=== PATIENT | male | born 1960 | race Hispanic/Latino ===

== ENCOUNTER 2021-01-05 07:38 | Day surgery (SDC) | payer OTHER ==
[2021-01-05] MEDS ORDERED: NA CHLORIDE 0.9% IV ONE (08:00)
[2021-01-05] MEDS ORDERED: RITUXIMAB ABBS IV ONE (08:00)
[2021-01-05 08:11] VITALS: BMI 29.8
[2021-01-05 12:38] VITALS: TEMP 98.1
[2021-01-05 13:27] VITALS: BP 160/94; O2SAT 97
== END 2021-01-05 13:05 | disposition home or self-care (01) ==
LOC: DS 07:38
PROVIDERS: ATTEND Internal Medicine
DX: L10.9 Pemphigus, unspecified (principal)
CPT/HCPCS: 96365; 96366; J7040; Q5115

== ENCOUNTER 2021-01-19 07:27 | Day surgery (SDC) | payer OTHER ==
[2021-01-19] MEDS ORDERED: NA CHLORIDE 0.9% 250 ML ONE (08:57)
[2021-01-19] MEDS ORDERED: NA CHLORIDE 0.9% IV ONE (09:00)
[2021-01-19] MEDS ORDERED: RITUXIMAB ABBS IV ONE (09:00)
[2021-01-19 10:14] VITALS: BMI 29.8
[2021-01-19 13:42] VITALS: BP 127/82; TEMP 97.2; O2SAT 97
== END 2021-01-19 16:00 | disposition home or self-care (01) ==
LOC: DS 07:27
PROVIDERS: ATTEND Internal Medicine
DX: L10.9 Pemphigus, unspecified (principal)
CPT/HCPCS: 96365; 96366; J7050; J7040; Q5115

== ENCOUNTER 2022-01-04 09:40 | Emergency (ER) | payer OTHER ==
--- OUTSIDE RECORDS SUMMARY | 2022-01-04 09:53 | XMS REPORT | Continuity of Care Document ---
:1960 Author Organization [facility] t Address [address] [place] [address] Dr. [address]. [address] [place] [address] Care Team Providers Name Role Phone Renzo Martinez Primary Care Physician [phone] Jose Guadalupe Kilgore Attending Clinician Unavailable Problems This patient has no known problems. Allergies, Adverse Reactions, Alerts Allergy Allergy Status Severity Reaction(s) Onset Inactive Treating Comm ents Source Name Type Date Date Clinician Mesna - Propensi Active Intraven ty to 6-27 ous adverse 00:00: reaction 00 to drug Medications Ordered Filled Start Stop Current Ordering Indication Dosage Frequency Signature Comments Components Source Medication Medication Date Date Medication? Clinician (SIG) Name Name TAKE 2021-03 No TABLET BY 0-03 MOUTH ONCE 00:00: DAILY 00 Dose 2021-03 No Unknown 0-03 00:00: 00 MUPIROCIN 2021-03 No 2% OIN 0-03 00:00: 00 ATENOLOL 2021-03 No 50MG TAB 0-03 00:00: 00 Dose 2021-03 No Unknown 0-03 00:00: 00 SERTRALINE 0 No HCL 50MG 9-29 TAB 00:00: 00 ZOVIRAX 5% 0 No CRE 9-21 00:00: 00 ATORVASTATI 2021-0 No 10 N CALCIUM 9-21 10MG TAB 00:00: 00 TAKE No TABLET 9-21 TWICE DAILY 00:00: WITH FOOD. 00 APPLY 2021-0 No SPARINGLY 9-21 TO AFFECTED 00:00: AREA(S) 00 TWICE DAILY ZOVIRAX 5% 2021-0 No CRE 9-21 00:00: 00 ATORVASTATI 2021-0 No 10 N CALCIUM 9-21 10MG TAB 00:00: 00 TAKE 1 2022-0 No TABLET 9-21 TWICE DAILY 00:00: WITH FOOD. 00 APPLY 2022-0 No SPARINGLY 9-21 TO AFFECTED 00:00: AREA(S) 00 TWICE DAILY ZOVIRAX 5% 2-0 No CRE 9-21 00:00: 00 ATORVASTATI 2022-0 No 10 N CALCIUM 9-21 10MG TAB 00:00: 00 TAKE 1 2-0 No TABLET 9-21 TWICE DAILY 00:00: WITH FOOD. 00 APPLY 2022-0 No SPARINGLY 9-21 TO AFFECTED 00:00: AREA(S) 00 TWICE DAILY CLOBETASOL 2-0 No PROPIONATE 8-29 0.05% CRE 00:00: 00 CLOBETASOL 2022-0 No PROPIONATE 8-29 0.05% CRE 00:00: 00 CLOBETASOL 2022-0 No PROPIONATE 8-29 0.05% CRE 00:00: 00 Dose 2022-0 No Unknown 8-22 00:00: 00 Dose 2022-0 No Unknown 8-22 00:00: 00 Dose 2022-0 No Unknown 8-22 00:00: 00 TAKE ONE 2022-0 No 50 TABLET 8-18 TWICE A DAY 00:00: 00 TAKE ONE 2022-0 No 50 TABLET 8-18 TWICE A DAY 00:00: 00 TAKE ONE 2022-0 No 50 TABLET 8-18 TWICE A DAY 00:00: 00 Dose 2022-0 No Unknown 8-18 00:00: 00 TAKE 1 2022-0 No 10 TABLET 8-16 DAILY. 00:00: 00 &lt 2022-0 No 8-16 00:00: 00 TAKE 1 2022-0 No 10 TABLET 8-16 DAILY. 00:00: 00 &lt 2022-0 No 8-16 00:00: 00 TAKE 1 2022-0 No 10 TABLET 8-16 DAILY. 00:00: 00 &lt 2022-0 No 8-16 00:00: 00 TAKE 1 2022-0 No 10 TABLET 8-16 DAILY. 00:00: 00 &lt 2022-0 No 8-16 00:00: 00 Dose 2022-0 No 50 Unknown 8-08 00:00: 00 &lt 2022-0 No 100 8-08 00:00: 00 &lt 2022-0 No 400 8-08 00:00: 00 Dose 2022-0 No 50 Unknown - 00:00: 00 &lt 2022-0 No 100 8- 00:00: 00 &lt 2022-0 No 400 8- 00:00: 00 Dose 2022-0 No 50 Unknown 10-22 00:00: 00 &lt 2022-0 No 100 8- 00:00: 00 &lt 2022-0 No 400 8- 00:00: 00 Dose 2022-0 No 50 Unknown 10-22 00:00: 00 &lt 2022-0 No 100 8- 00:00: 00 &lt 2022-0 No 400 8- 00:00: 00 &lt 2022-0 No 800 8- 00:00: 00 &lt 2022-0 No 8- 00:00: 00 &lt 2022-0 No 25 8- 00:00: 00 &lt 2022-0 No 10 8- 00:00: 00 &lt 2022-0 No 8-03 00:00: 00 &lt 2022-0 No 800 8- 00:00: 00 &lt 2022-0 No 8-03 00:00: 00 &lt 2022-0 No 25 8- 00:00: 00 &lt 2022-0 No 10 8- 00:00: 00 &lt 2022-0 No 8-03 00:00: 00 &lt 2022-0 No 800 8- 00:00: 00 &lt 2022-0 No 8-03 00:00: 00 &lt 2022-0 No 25 8- 00:00: 00 &lt 2022-0 No 10 8- 00:00: 00 &lt 2022-0 No 8-03 00:00: 00 &lt 2022-0 No 800 8- 00:00: 00 &lt 2022-0 No 8-03 00:00: 00 &lt 2022-0 No 25 8-03 00:00: 00 &lt 2022-0 No 10 8-03 00:00: 00 &lt 2022-0 No 8- 00:00: 00 Dose 2022-0 No 50 Unknown 8- 00:00: 00 &lt 2022-0 No 75 8- 00:00: 00 &lt 2022-0 No 8- 00:00: 00 &lt 2022-0 No 50 8- 00:00: 00 Dose 2022-0 No 4 Unknown 10-16 00:00: 00 TAKE 1 2-0 No 250 CAPSULE 8 TWICE 00:00: DAILY. 00 &lt 2022-0 No 8- 00:00: 00 Dose 2022-0 No 50 Unknown 8 00:00: 00 &lt 2022-0 No 75 8- 00:00: 00 &lt 2022-0 No 8- 00:00: 00 &lt 2022-0 No 50 8- 00:00: 00 Dose 2022-0 No 4 Unknown 10-16 00:00: 00 TAKE 1 2021-0 No 250 CAPSULE 10-16 TWICE 00:00: DAILY. 00 &lt 2022-0 No 8- 00:00: 00 Dose 2022-0 No 50 Unknown 10-16 00:00: 00 &lt 2022-0 No 75 8- 00:00: 00 &lt 2022-0 No 8- 00:00: 00 &lt 2022-0 No 50 8- 00:00: 00 Dose 2022-0 No 4 Unknown 10-16 00:00: 00 TAKE 1 2021-0 No 250 CAPSULE 10-16 TWICE 00:00: DAILY. 00 &lt 2022-0 No 8- 00:00: 00 Dose 2022-0 No 50 Unknown 10-16 00:00: 00 &lt 2022-0 No 75 8- 00:00: 00 &lt 2022-0 No 8- 00:00: 00 &lt 2022-0 No 50 8- 00:00: 00 Dose 2022-0 No 4 Unknown 10-16 00:00: 00 TAKE 1 2-0 No 250 CAPSULE 10-16 TWICE 00:00: DAILY. 00 &lt 2022-0 No 8- 00:00: 00 &lt 2022-0 No 800 8 00:00: 00 Dose 2022-0 No 10 Unknown 10-15 00:00: 00 &lt 2022-0 No 50 8- 00:00: 00 &lt 2022-0 No 8- 00:00: 00 Dose 2022-0 No Unknown 10-15 00:00: 00 TAKE 1 2022-0 No 250 CAPSULE 8- TWICE 00:00: DAILY. 00 &lt 2022-0 No 50 8- 00:00: 00 &lt 2022-0 No 4 8- 00:00: 00 APPLY 2022-0 No SPARINGLY 8-01 TO AFFECTED 00:00: AREAS TWICE 00 A DAY Dose 2022-0 No Unknown 8- 00:00: 00 Dose 2022-0 No Unknown 8- 00:00: 00 &lt 2022-0 No 10 8- 00:00: 00 &lt 2022-0 No 800 8- 00:00: 00 Dose 2022-0 No 10 Unknown 8- 00:00: 00 &lt 2022-0 No 50 8- 00:00: 00 &lt 2022-0 No 8- 00:00: 00 Dose 2022-0 No Unknown 8- 00:00: 00 TAKE 1 2022-0 No 250 CAPSULE 8- TWICE 00:00: DAILY. 00 &lt 2022-0 No 50 8- 00:00: 00 &lt 2022-0 No 4 8- 00:00: 00 APPLY 2022-0 No SPARINGLY 8- TO AFFECTED 00:00: AREAS TWICE 00 A DAY Dose 2022-0 No Unknown 8- 00:00: 00 Dose 2022-0 No Unknown 8- 00:00: 00 &lt 2022-0 No 10 8- 00:00: 00 &lt 2022-0 No 800 8- 00:00: 00 Dose 2022-0 No 10 Unknown 8- 00:00: 00 &lt 2022-0 No 50 8- 00:00: 00 &lt 2022-0 No 8- 00:00: 00 Dose 2022-0 No Unknown 8- 00:00: 00 TAKE 1 2022-0 No 250 CAPSULE 8- TWICE 00:00: DAILY. 00 &lt 2022-0 No 50 8- 00:00: 00 &lt 2022-0 No 4 8- 00:00: 00 APPLY 2022-0 No SPARINGLY 8- TO AFFECTED 00:00: AREAS TWICE 00 A DAY Dose 2022-0 No Unknown 8- 00:00: 00 Dose 2022-0 No Unknown 8- 00:00: 00 &lt 2022-0 No 10 8- 00:00: 00 &lt 2022-0 No 800 8- 00:00: 00 Dose 2022-0 No 10 Unknown 8-01 00:00: 00 &lt 2022-0 No 50 8-01 00:00: 00 &lt 2022-0 No 8-01 00:00: 00 Dose 2022-0 No Unknown 8- 00:00: 00 TAKE 1 2022-0 No 250 CAPSULE 8- TWICE 00:00: DAILY. 00 &lt 2022-0 No 50 8- 00:00: 00 &lt 2022-0 No 4 8- 00:00: 00 APPLY 2022-0 No SPARINGLY 8-01 TO AFFECTED 00:00: AREAS TWICE 00 A DAY Dose 2022-0 No Unknown 8- 00:00: 00 Dose 2022-0 No Unknown 8- 00:00: 00 &lt 2022-0 No 10 8- 00:00: 00 &lt 2022-0 No 800 8- 00:00: 00 Dose 2022-0 No 10 Unknown 8- 00:00: 00 &lt 2022-0 No 50 8- 00:00: 00 &lt 2022-0 No 8- 00:00: 00 Dose 2022-0 No Unknown 8- 00:00: 00 TAKE 1 2-0 No 250 CAPSULE 8- TWICE 00:00: DAILY. 00 &lt 2022-0 No 50 8- 00:00: 00 &lt 2022-0 No 4 8- 00:00: 00 APPLY 2022-0 No SPARINGLY 8- TO AFFECTED 00:00: AREAS TWICE 00 A DAY Dose 2022-0 No Unknown 8- 00:00: 00 Dose 2022-0 No Unknown 8- 00:00: 00 &lt 2022-0 No 10 8- 00:00: 00 TAKE 1 2-0 No 250 CAPSULE 7-22 TWICE 00:00: DAILY. 00 &lt 2022-0 No 4 7- 00:00: 00 TAKE 1 2022-0 No 250 CAPSULE 7-22 TWICE 00:00: DAILY. 00 &lt 2022-0 No 4 7- 00:00: 00 TAKE 1 2-0 No 250 CAPSULE 7-22 TWICE 00:00: DAILY. 00 &lt 2022-0 No 4 7-22 00:00: 00 TAKE 1 2022-0 No 250 CAPSULE 7-22 TWICE 00:00: DAILY. 00 &lt 2022-0 No 4 7-22 00:00: 00 TAKE 1 2022-0 No 250 CAPSULE 7-22 TWICE 00:00: DAILY. 00 &lt 2022-0 No 4 7-22 00:00: 00 &lt 2022-0 No 100 7-20 00:00: 00 &lt 2022-0 No 7-20 00:00: 00 &lt 2022-0 No 50 7-20 00:00: 00 Dose 2022-0 No 50 Unknown 7-20 00:00: 00 &lt 2022-0 No 7-20 00:00: 00 &lt 2022-0 No 7-20 00:00: 00 &lt 2022-0 No 7-20 00:00: 00 &lt 2022-0 No 500 7-20 00:00: 00 Dose 2022-0 No 10 Unknown 7-20 00:00: 00 &lt 2022-0 No 100 7-20 00:00: 00 &lt 2022-0 No 7-20 00:00: 00 &lt 2022-0 No 50 7-20 00:00: 00 Dose 2022-0 No 50 Unknown 7-20 00:00: 00 &lt 2022-0 No 7-20 00:00: 00 &lt 2022-0 No 7-20 00:00: 00 &lt 2022-0 No 7-20 00:00: 00 &lt 2022-0 No 500 7-20 00:00: 00 Dose 2022-0 No 10 Unknown 7-20 00:00: 00 &lt 2022-0 No 100 7-20 00:00: 00 &lt 2022-0 No 7-20 00:00: 00 &lt 2022-0 No 50 7-20 00:00: 00 Dose 2022-0 No 50 Unknown 7-20 00:00: 00 &lt 2022-0 No 7-20 00:00: 00 &lt 2022-0 No 7-20 00:00: 00 &lt 2022-0 No 7-20 00:00: 00 &lt 2022-0 No 500 7-20 00:00: 00 Dose 2022-0 No 10 Unknown 7-20 00:00: 00 &lt 2022-0 No 100 7-20 00:00: 00 &lt 2022-0 No 7-20 00:00: 00 &lt 2022-0 No 50 7-20 00:00: 00 Dose 2022-0 No 50 Unknown 7-20 00:00: 00 &lt 2022-0 No 7-20 00:00: 00 &lt 2022-0 No 7-20 00:00: 00 &lt 2022-0 No 7-20 00:00: 00 &lt 2022-0 No 500 7-20 00:00: 00 Dose 2022-0 No 10 Unknown 7-20 00:00: 00 &lt 2022-0 No 100 7-20 00:00: 00 &lt 2022-0 No 7-20 00:00: 00 &lt 2022-0 No 50 7-20 00:00: 00 Dose 2022-0 No 50 Unknown 7-20 00:00: 00 &lt 2022-0 No 7-20 00:00: 00 &lt 2022-0 No 7-20 00:00: 00 &lt 2022-0 No 7-20 00:00: 00 &lt 2022-0 No 500 7-20 00:00: 00 Dose 2022-0 No 10 Unknown 7-20 00:00: 00 &lt 2022-0 No 100 7-20 00:00: 00 &lt 2022-0 No 7-20 00:00: 00 &lt 2022-0 No 50 7-20 00:00: 00 Dose 2022-0 No 50 Unknown 7-20 00:00: 00 &lt 2022-0 No 7-20 00:00: 00 &lt 2022-0 No 7-20 00:00: 00 &lt 2022-0 No 7-20 00:00: 00 &lt 2022-0 No 500 7-20 00:00: 00 Dose 2022-0 No 10 Unknown 7-20 00:00: 00 TAKE 1 2022-0 No 4 TABLET 7-15 TWICE 00:00: DAILY. 00 Dose 2022-0 No Unknown 7-15 00:00: 00 TAKE 1 2022-0 No 4 TABLET 7-15 TWICE 00:00: DAILY. 00 Dose 2022-0 No Unknown 7-15 00:00: 00 TAKE 1 2022-0 No 4 TABLET 7-15 TWICE 00:00: DAILY. 00 Dose 2022-0 No Unknown 7-15 00:00: 00 TAKE 1 2022-0 No 4 TABLET 7-15 TWICE 00:00: DAILY. 00 Dose 2022-0 No Unknown 7-15 00:00: 00 TAKE 1 2022-0 No 4 TABLET 7-15 TWICE 00:00: DAILY. 00 Dose 2022-0 No Unknown 7-15 00:00: 00 TAKE 1 2022-0 No 4 TABLET 7-15 TWICE 00:00: DAILY. 00 Dose 2022-0 No Unknown 7-15 00:00: 00 &lt 2022-0 No 50 7-07 00:00: 00 &lt 2022-0 No 50 7-07 00:00: 00 &lt 2022-0 No 50 7-07 00:00: 00 &lt 2022-0 No 50 7-07 00:00: 00 &lt 2022-0 No 50 7-07 00:00: 00 &lt 2022-0 No 50 7-07 00:00: 00 &lt 2022-0 No 50 7-07 00:00: 00 &lt 2022-0 No 7-06 00:00: 00 &lt 2022-0 No 7-06 00:00: 00 &lt 2022-0 No 10 7-06 00:00: 00 &lt 2022-0 No 7-06 00:00: 00 &lt 2022-0 No 50 7-06 00:00: 00 TAKE ONE 2022-0 No 50 TABLET 7-06 TWICE A DAY 00:00: 00 Dose 2022-0 No Unknown 7-06 00:00: 00 TAKE 2 2022-0 No 2 TABLETS 7-06 INITIALLY, 00:00: FOLLOWED BY 00 1 TABLET AFTER EACH LOOSE BOWEL MOVEMENT. DO NOT EXCEED 8 TABLETS/DAY . &lt 2022-0 No 7-06 00:00: 00 &lt 2022-0 No 7-06 00:00: 00 &lt 2022-0 No 10 7-06 00:00: 00 &lt 2022-0 No 7-06 00:00: 00 &lt 2022-0 No 50 7-06 00:00: 00 TAKE ONE 2022-0 No 50 TABLET 7-06 TWICE A DAY 00:00: 00 Dose 2022-0 No Unknown 7-06 00:00: 00 TAKE 2 2022-0 No 2 TABLETS 7-06 INITIALLY, 00:00: FOLLOWED BY 00 1 TABLET AFTER EACH LOOSE BOWEL MOVEMENT. DO NOT EXCEED 8 TABLETS/DAY . &lt 2022-0 No 7-06 00:00: 00 &lt 2022-0 No 7-06 00:00: 00 &lt 2022-0 No 10 7-06 00:00: 00 &lt 2022-0 No 7-06 00:00: 00 &lt 2022-0 No 50 7-06 00:00: 00 TAKE ONE 2022-0 No 50 TABLET 7-06 TWICE A DAY 00:00: 00 Dose 2022-0 No Unknown 7- 00:00: 00 TAKE 2 2022-0 No 2 TABLETS 7- INITIALLY, 00:00: FOLLOWED BY 00 1 TABLET AFTER EACH LOOSE BOWEL MOVEMENT. DO NOT EXCEED 8 TABLETS/DAY . &lt 2022-0 No 7-06 00:00: 00 &lt 2022-0 No 7-06 00:00: 00 &lt 2022-0 No 10 7-06 00:00: 00 &lt 2022-0 No 7-06 00:00: 00 &lt 2022-0 No 50 7-06 00:00: 00 TAKE ONE 2022-0 No 50 TABLET 7-06 TWICE A DAY 00:00: 00 Dose 2022-0 No Unknown 7 00:00: 00 TAKE 2 2022-0 No 2 TABLETS 7- INITIALLY, 00:00: FOLLOWED BY 00 1 TABLET AFTER EACH LOOSE BOWEL MOVEMENT. DO NOT EXCEED 8 TABLETS/DAY . &lt 2022-0 No 7-06 00:00: 00 &lt 2022-0 No 7-06 00:00: 00 &lt 2022-0 No 10 7-06 00:00: 00 &lt 2022-0 No 7-06 00:00: 00 &lt 2022-0 No 50 7-06 00:00: 00 TAKE ONE 2022-0 No 50 TABLET 7-06 TWICE A DAY 00:00: 00 Dose 2022-0 No Unknown 7- 00:00: 00 TAKE 2 2022-0 No 2 TABLETS 7-06 INITIALLY, 00:00: FOLLOWED BY 00 1 TABLET AFTER EACH LOOSE BOWEL MOVEMENT. DO NOT EXCEED 8 TABLETS/DAY . &lt 2022-0 No 7-06 00:00: 00 &lt 2022-0 No 7-06 00:00: 00 &lt 2022-0 No 10 7-06 00:00: 00 &lt 2022-0 No 7-06 00:00: 00 &lt 2022-0 No 50 7-06 00:00: 00 TAKE ONE 2022-0 No 50 TABLET 7-06 TWICE A DAY 00:00: 00 Dose 2022-0 No Unknown 7- 00:00: 00 TAKE 2 2022-0 No 2 TABLETS 7-06 INITIALLY, 00:00: FOLLOWED BY 00 1 TABLET AFTER EACH LOOSE BOWEL MOVEMENT. DO NOT EXCEED 8 TABLETS/DAY . &lt 2022-0 No 7-06 00:00: 00 &lt 2022-0 No 7-06 00:00: 00 &lt 2022-0 No 10 7-06 00:00: 00 &lt 2022-0 No 7-06 00:00: 00 &lt 2022-0 No 50 7- 00:00: 00 TAKE ONE 2022-0 No 50 TABLET 7-06 TWICE A DAY 00:00: 00 Dose 2022-0 No Unknown 7- 00:00: 00 TAKE 2 2022-0 No 2 TABLETS 7-06 INITIALLY, 00:00: FOLLOWED BY 00 1 TABLET AFTER EACH LOOSE BOWEL MOVEMENT. DO NOT EXCEED 8 TABLETS/DAY . &lt 2022-0 No 6-30 00:00: 00 &lt 2022-0 No 6-30 00:00: 00 &lt 2022-0 No 6-30 00:00: 00 &lt 2022-0 No 6-30 00:00: 00 &lt 2022-0 No 6-30 00:00: 00 &lt 2022-0 No 6-30 00:00: 00 &lt 2022-0 No 6-30 00:00: 00 &lt 2022-0 No 6-30 00:00: 00 &lt 2022-0 No 6-30 00:00: 00 &lt 2022-0 No 6-30 00:00: 00 &lt 2022-0 No 6-30 00:00: 00 &lt 2022-0 No 6-30 00:00: 00 &lt 2022-0 No 6-30 00:00: 00 &lt 2022-0 No 6-30 00:00: 00 &lt 2022-0 No 6-30 00:00: 00 &lt 2022-0 No 6-30 00:00: 00 &lt 2022-0 No 6-30 00:00: 00 &lt 2022-0 No 6-30 00:00: 00 &lt 2022-0 No 6-30 00:00: 00 &lt 2022-0 No 6-30 00:00: 00 &lt 2022-0 No 6-30 00:00: 00 &lt 2022-0 No 6-30 00:00: 00 &lt 2022-0 No 6-30 00:00: 00 &lt 2022-0 No 6-30 00:00: 00 &lt 2022-0 No 6-30 00:00: 00 &lt 2022-0 No 6-30 00:00: 00 &lt 2022-0 No 6-30 00:00: 00 &lt 2022-0 No 6-30 00:00: 00 &lt 2022-0 No 6-30 00:00: 00 &lt 2022-0 No 6-30 00:00: 00 &lt 2022-0 No 6-30 00:00: 00 &lt 2022-0 No 6-30 00:00: 00 &lt 2022-0 No 6-29 00:00: 00 &lt 2022-0 No 6-29 00:00: 00 &lt 2022-0 No 6-29 00:00: 00 &lt 2022-0 No 6-29 00:00: 00 &lt 2022-0 No 6-29 00:00: 00 &lt 2022-0 No 6-29 00:00: 00 &lt 2022-0 No 6-29 00:00: 00 &lt 2022-0 No 6-29 00:00: 00 &lt 2022-0 No 6-29 00:00: 00 &lt 2022-0 No 6-29 00:00: 00 &lt 2022-0 No 6-29 00:00: 00 &lt 2022-0 No 6-29 00:00: 00 &lt 2022-0 No 6-29 00:00: 00 &lt 2022-0 No 6-29 00:00: 00 &lt 2022-0 No 6-29 00:00: 00 &lt 2022-0 No 6-29 00:00: 00 atorvastati 2022-0 No 1mg n 10 mg 6-27 tablet 00:00: 00 glimepiride 2022-0 No 1mg 4 mg tablet 6 00:00: 00 metformin 2022-0 No 1mg ER 1,000 mg 6-27 24 hr 00:00: tablet,exte 00 nded release &lt 2022-0 No 6-27 00:00: 00 Dose 2022-0 No Unknown 6-27 00:00: 00 Dose 2022-0 No Unknown 6-27 00:00: 00 Dose 2022-0 No Unknown 6-27 00:00: 00 &lt 2022-0 No 6-27 00:00: 00 &lt 2022-0 No 6-27 00:00: 00 Dose 2022-0 No Unknown 6-27 00:00: 00 &lt 2022-0 No 6-27 00:00: 00 &lt 2022-0 No 6-27 00:00: 00 atorvastati 2022-0 No 1mg n 10 mg 6-27 tablet 00:00: 00 glimepiride 2-0 No 1mg 4 mg tablet 09-10 00:00: 00 metformin 2022-0 No 1mg ER 1,000 mg 6-27 24 hr 00:00: tablet,exte 00 nded release &lt 2-0 No 6-27 00:00: 00 Dose 2022-0 No Unknown 6- 00:00: 00 Dose 2022-0 No Unknown 6- 00:00: 00 Dose 2022-0 No Unknown 6-27 00:00: 00 &lt 2022-0 No 6-27 00:00: 00 &lt 2022-0 No 6-27 00:00: 00 Dose 2022-0 No Unknown 6-27 00:00: 00 &lt 2022-0 No 6-27 00:00: 00 &lt 2022-0 No 6-27 00:00: 00 atorvastati 2022-0 No 1mg n 10 mg 6-27 tablet 00:00: 00 glimepiride 2022-0 No 1mg 4 mg tablet 6 00:00: 00 metformin 2022-0 No 1mg ER 1,000 mg 6-27 24 hr 00:00: tablet,exte 00 nded release (gastric) &lt 2-0 No 6-27 00:00: 00 Dose 2022-0 No Unknown 6-27 00:00: 00 Dose 2022-0 No Unknown 6- 00:00: 00 Dose 2022-0 No Unknown 6-27 00:00: 00 &lt 2022-0 No 6-27 00:00: 00 &lt 2022-0 No 6-27 00:00: 00 Dose 2022-0 No Unknown 6- 00:00: 00 &lt 2022-0 No 6-27 00:00: 00 &lt 2022-0 No 6-27 00:00: 00 atorvastati 2022-0 No 1mg n 10 mg 6-27 tablet 00:00: 00 glimepiride 2-0 No 1mg 4 mg tablet 09-10 00:00: 00 metformin 2-0 No 1mg ER 1,000 mg 6- 24 hr 00:00: tablet,exte 00 nded release &lt 2-0 No 6- 00:00: 00 Dose 2022-0 No Unknown 6- 00:00: 00 Dose 2-0 No Unknown 6- 00:00: 00 Dose 2-0 No Unknown 6 00:00: 00 &lt 2022-0 No 6- 00:00: 00 &lt 2022-0 No 6- 00:00: 00 Dose 2022-0 No Unknown 6- 00:00: 00 &lt 2022-0 No 6- 00:00: 00 &lt 2022-0 No 6- 00:00: 00 atorvastati 2022-0 No 1mg n 10 mg 6-27 tablet 00:00: 00 glimepiride 2-0 No 1mg 4 mg tablet 09-10 00:00: 00 metformin 2-0 No 1mg ER 1,000 mg 6-27 24 hr 00:00: tablet,exte 00 nded release &lt 2-0 No 6-27 00:00: 00 Dose 2022-0 No Unknown 6- 00:00: 00 Dose 2022-0 No Unknown 6-27 00:00: 00 Dose 2022-0 No Unknown 6-27 00:00: 00 &lt 2022-0 No 6-27 00:00: 00 &lt 2022-0 No 6-27 00:00: 00 Dose 2022-0 No Unknown 6- 00:00: 00 &lt 2022-0 No 6-27 00:00: 00 &lt 2022-0 No 6-27 00:00: 00 atorvastati 2022-0 No 1mg n 10 mg 6-27 tablet 00:00: 00 glimepiride 2-0 No 1mg 4 mg tablet 09-10 00:00: 00 metformin 2022-0 No 1mg ER 1,000 mg - 24 hr 00:00: tablet,exte 00 nded release (gastric) &lt 2-0 No 6-27 00:00: 00 Dose 2-0 No Unknown 6 00:00: 00 Dose 2022-0 No Unknown 6 00:00: 00 Dose 2022-0 No Unknown 6- 00:00: 00 &lt 2022-0 No 6-27 00:00: 00 &lt 2022-0 No 6- 00:00: 00 Dose 2022-0 No Unknown 6- 00:00: 00 &lt 2022-0 No 6- 00:00: 00 &lt 2022-0 No 6- 00:00: 00 atorvastati 2-0 No 1mg n 10 mg -27 tablet 00:00: 00 glimepiride 2-0 No 1mg 4 mg tablet 09-10 00:00: 00 metformin 2-0 No 1mg ER 1,000 mg -27 24 hr 00:00: tablet,exte 00 nded release &lt 2-0 No 6-27 00:00: 00 Dose 2022-0 No Unknown 6- 00:00: 00 Dose 2022-0 No Unknown 6- 00:00: 00 Dose 2022-0 No Unknown 6- 00:00: 00 &lt 2022-0 No 6-27 00:00: 00 &lt 2022-0 No 6-27 00:00: 00 Dose 2022-0 No Unknown 6- 00:00: 00 &lt 2022-0 No 6-27 00:00: 00 &lt 2022-0 No 6-27 00:00: 00 atorvastati 2022-0 No 1mg n 10 mg 09-10 tablet 00:00: 00 glimepiride 2-0 No 1mg 4 mg tablet 09-10 00:00: 00 metformin 2-0 No 1mg ER 1,000 mg 09-10 24 hr 00:00: tablet,exte 00 nded release &lt 2022-0 No 09-10 00:00: 00 Dose 2022-0 No Unknown 09-10 00:00: 00 Dose 2022-0 No Unknown 09-10 00:00: 00 Dose 2022-0 No Unknown 09-10 00:00: 00 &lt 2022-0 No 6- 00:00: 00 &lt 2022-0 No 6- 00:00: 00 Dose 2022-0 No Unknown 09-10 00:00: 00 &lt 2022-0 No 6- 00:00: 00 &lt 2022-0 No 6- 00:00: 00 &lt 2022-0 No 6-24 00:00: 00 &lt 2022-0 No 6-24 00:00: 00 &lt 2022-0 No 6-24 00:00: 00 &lt 2022-0 No 6-24 00:00: 00 &lt 2022-0 No 6-24 00:00: 00 &lt 2022-0 No 6-24 00:00: 00 &lt 2022-0 No 6-24 00:00: 00 &lt 2022-0 No 6-24 00:00: 00 &lt 2022-0 No 6-24 00:00: 00 &lt 2022-0 No 6-24 00:00: 00 &lt 2022-0 No 6-24 00:00: 00 &lt 2022-0 No 6-24 00:00: 00 &lt 2022-0 No 6-24 00:00: 00 &lt 2022-0 No 6-24 00:00: 00 &lt 2022-0 No 6-24 00:00: 00 &lt 2022-0 No 6-24 00:00: 00 &lt 2022-0 No 6-09 00:00: 00 APPLY TO 2022-0 No AFFECTED 6-09 AREA ONCE A 00:00: DAY 00 Dose 2022-0 No Unknown 6-09 00:00: 00 &lt 2022-0 No 6-09 00:00: 00 &lt 2022-0 No 6-09 00:00: 00 &lt 2022-0 No 6-09 00:00: 00 &lt 2022-0 No 6-09 00:00: 00 APPLY TO 2022-0 No AFFECTED 6-09 AREA ONCE A 00:00: DAY 00 Dose 2022-0 No Unknown 6-09 00:00: 00 &lt 2022-0 No 6-09 00:00: 00 &lt 2022-0 No 6-09 00:00: 00 &lt 2022-0 No 6-09 00:00: 00 &lt 2022-0 No 6-09 00:00: 00 APPLY TO 2022-0 No AFFECTED 6-09 AREA ONCE A 00:00: DAY 00 Dose 2022-0 No Unknown 6-09 00:00: 00 &lt 2022-0 No 6-09 00:00: 00 &lt 2022-0 No 6-09 00:00: 00 &lt 2022-0 No 6-09 00:00: 00 &lt 2022-0 No 6-09 00:00: 00 APPLY TO 2022-0 No AFFECTED 6-09 AREA ONCE A 00:00: DAY 00 Dose 2022-0 No Unknown 6-09 00:00: 00 &lt 2022-0 No 6-09 00:00: 00 &lt 2022-0 No 6-09 00:00: 00 &lt 2022-0 No 6-09 00:00: 00 &lt 2022-0 No 6-09 00:00: 00 APPLY TO 2022-0 No AFFECTED 6-09 AREA ONCE A 00:00: DAY 00 Dose 2022-0 No Unknown 6-09 00:00: 00 &lt 2022-0 No 6-09 00:00: 00 &lt 2022-0 No 6-09 00:00: 00 &lt 2022-0 No 6-09 00:00: 00 &lt 2022-0 No 6-09 00:00: 00 APPLY TO 2022-0 No AFFECTED 6-09 AREA ONCE A 00:00: DAY 00 Dose 2022-0 No Unknown 6-09 00:00: 00 &lt 2022-0 No 6-09 00:00: 00 &lt 2022-0 No 6-09 00:00: 00 &lt 2022-0 No 6-09 00:00: 00 &lt 2022-0 No 6-09 00:00: 00 APPLY TO 2022-0 No AFFECTED 6-09 AREA ONCE A 00:00: DAY 00 Dose 2022-0 No Unknown 6-09 00:00: 00 &lt 2022-0 No 6-09 00:00: 00 &lt 2022-0 No 6-09 00:00: 00 &lt 2022-0 No 6-09 00:00: 00 &lt 2022-0 No 6-09 00:00: 00 APPLY TO 2022-0 No AFFECTED 6-09 AREA ONCE A 00:00: DAY 00 Dose 2022-0 No Unknown 6-09 00:00: 00 &lt 2022-0 No 6-09 00:00: 00 &lt 2022-0 No 6-09 00:00: 00 &lt 2022-0 No 6-09 00:00: 00 Dose 2022-0 No Unknown 5-27 00:00: 00 Dose 2022-0 No Unknown 5-27 00:00: 00 Dose 2022-0 No Unknown 5-27 00:00: 00 Dose 2022-0 No Unknown 5-27 00:00: 00 Dose 2022-0 No Unknown 5-27 00:00: 00 Dose 2022-0 No Unknown 5-27 00:00: 00 Dose 2022-0 No Unknown 5-27 00:00: 00 Dose 2022-0 No Unknown 5-27 00:00: 00 Dose 2022-0 No Unknown 5-27 00:00: 00 Dose 2022-0 No Unknown 5-27 00:00: 00 Dose 2022-0 No Unknown 5-27 00:00: 00 Dose 2022-0 No Unknown 5-27 00:00: 00 Dose 2022-0 No Unknown 5-27 00:00: 00 Dose 2022-0 No Unknown 5-27 00:00: 00 Dose 2022-0 No Unknown 5-27 00:00: 00 Dose 2022-0 No Unknown 5-27 00:00: 00 Dose 2022-0 No Unknown 5-26 00:00: 00 Dose 2022-0 No Unknown 5-26 00:00: 00 Dose 2022-0 No Unknown 5-26 00:00: 00 Dose 2022-0 No Unknown 5-26 00:00: 00 Dose 2022-0 No Unknown 5- 00:00: 00 Dose 2022-0 No Unknown 5- 00:00: 00 Dose 2022-0 No Unknown 5- 00:00: 00 Dose 2022-0 No Unknown 5- 00:00: 00 Dose 2022-0 No Unknown 5- 00:00: 00 Dose 2022-0 No Unknown 5- 00:00: 00 Dose 2022-0 No Unknown 5- 00:00: 00 Dose 2022-0 No Unknown 5- 00:00: 00 Dose 2022-0 No Unknown 5- 00:00: 00 Dose 2022-0 No Unknown 5- 00:00: 00 Dose 2022-0 No Unknown 5- 00:00: 00 Dose 2022-0 No Unknown 5- 00:00: 00 Dose 2022-0 No Unknown 5- 00:00: 00 Dose 2022-0 No Unknown 5- 00:00: 00 Dose 2022-0 No Unknown 5- 00:00: 00 Dose 2022-0 No Unknown 5- 00:00: 00 Dose 2022-0 No Unknown 5- 00:00: 00 Dose 2022-0 No Unknown 5- 00:00: 00 Dose 2022-0 No Unknown 5- 00:00: 00 Dose 2022-0 No Unknown 5- 00:00: 00 Dose 2022-0 No Unknown 5- 00:00: 00 Dose 2022-0 No Unknown 5- 00:00: 00 Dose 2022-0 No Unknown 5- 00:00: 00 Dose 2022-0 No Unknown 5- 00:00: 00 Dose 2022-0 No Unknown 5- 00:00: 00 Dose 2022-0 No Unknown 5- 00:00: 00 Dose 2022-0 No Unknown 5- 00:00: 00 Dose 2022-0 No Unknown 5- 00:00: 00 Dose 2022-0 No Unknown 5- 00:00: 00 Dose 2022-0 No Unknown 5- 00:00: 00 Dose 2022-0 No Unknown 5- 00:00: 00 Dose 2022-0 No Unknown 5-23 00:00: 00 Dose 2022-0 No Unknown 5-23 00:00: 00 Dose 2022-0 No Unknown 5-23 00:00: 00 Dose 2022-0 No Unknown 5-23 00:00: 00 Dose 2022-0 No Unknown 5-23 00:00: 00 clobetasol 2022-0 No 1% 0.05 % 5-11 topical 00:00: cream 00 ciprofloxac 2022-0 No 1mg in 500 mg 5-11 tablet 00:00: 00 diclofenac 2022-0 No 1mg sodium 75 5-11 mg 00:00: tablet,katya 00 yed release trazodone 2022-0 No 1mg 100 mg 5-11 tablet 00:00: 00 loperamide 2022-0 No 1mg 2 mg 5-11 capsule 00:00: 00 clobetasol 2022-0 No 1% 0.05 % 5-11 topical 00:00: cream 00 ciprofloxac 2022-0 No 1mg in 500 mg 5-11 tablet 00:00: 00 diclofenac 2022-0 No 1mg sodium 75 5-11 mg 00:00: tablet,katya 00 yed release trazodone 2022-0 No 1mg 100 mg 5-11 tablet 00:00: 00 loperamide 2022-0 No 1mg 2 mg 5-11 capsule 00:00: 00 clobetasol 2022-0 No 1% 0.05 % 5-11 topical 00:00: cream 00 ciprofloxac 2022-0 No 1mg in 500 mg 5-11 tablet 00:00: 00 diclofenac 2022-0 No 1mg sodium 75 5-11 mg 00:00: tablet,katya 00 yed release trazodone 2022-0 No 1mg 100 mg 5-11 tablet 00:00: 00 loperamide 2022-0 No 1mg 2 mg 5-11 capsule 00:00: 00 clobetasol 2022-0 No 1% 0.05 % 5-11 topical 00:00: cream 00 ciprofloxac 2022-0 No 1mg in 500 mg 5-11 tablet 00:00: 00 diclofenac 2022-0 No 1mg sodium 75 5-11 mg 00:00: tablet,katya 00 yed release trazodone 2022-0 No 1mg 100 mg 5-11 tablet 00:00: 00 loperamide 2022-0 No 1mg 2 mg 5-11 capsule 00:00: 00 clobetasol 2022-0 No 1% 0.05 % 5-11 topical 00:00: cream 00 ciprofloxac 2022-0 No 1mg in 500 mg 5-11 tablet 00:00: 00 diclofenac 2022-0 No 1mg sodium 75 5-11 mg 00:00: tablet,katya 00 yed release trazodone 2022-0 No 1mg 100 mg 5-11 tablet 00:00: 00 loperamide 2022-0 No 1mg 2 mg 5-11 capsule 00:00: 00 clobetasol 2022-0 No 1% 0.05 % 5-11 topical 00:00: cream 00 ciprofloxac 2022-0 No 1mg in 500 mg 5-11 tablet 00:00: 00 diclofenac 2022-0 No 1mg sodium 75 5-11 mg 00:00: tablet,katya 00 yed release trazodone 2022-0 No 1mg 100 mg 5-11 tablet 00:00: 00 loperamide 2022-0 No 1mg 2 mg 5-11 capsule 00:00: 00 clobetasol 2022-0 No 1% 0.05 % 5-11 topical 00:00: cream 00 ciprofloxac 2022-0 No 1mg in 500 mg 5-11 tablet 00:00: 00 diclofenac 2022-0 No 1mg sodium 75 5-11 mg 00:00: tablet,katya 00 yed release trazodone 2022-0 No 1mg 100 mg 5-11 tablet 00:00: 00 loperamide 2022-0 No 1mg 2 mg 5-11 capsule 00:00: 00 clobetasol 2022-0 No 1% 0.05 % 5-11 topical 00:00: cream 00 ciprofloxac 2022-0 No 1mg in 500 mg 5-11 tablet 00:00: 00 diclofenac 2022-0 No 1mg sodium 75 5-11 mg 00:00: tablet,katya 00 yed release trazodone 2022-0 No 1mg 100 mg 5-11 tablet 00:00: 00 loperamide 2022-0 No 1mg 2 mg 5-11 capsule 00:00: 00 hydrocortis 2022-0 No 1% one 1 % 4-28 topical 00:00: cream 00 mupirocin 2 2021-0 No 1% % topical 4-28 ointment 00:00: 00 triamcinolo 2-0 No 1% ne 4-28 acetonide 00:00: 0.025 % 00 topical cream metformin 2-0 No 1mg ER 1,000 mg 4-28 24 hr 00:00: tablet,exte 00 nded release (gastric) Cholestyram 2-0 No 1gram ine Light 4 4-28 gram powder 00:00: for susp in 00 a packet hydrocortis 2021-0 No 1% one 1 % 4-28 topical 00:00: cream 00 APPLY 2021-0 No SPARINGLY 4-28 TO AFFECTED 00:00: AREA(S) 00 TWICE DAILY triamcinolo 2-0 No 1% ne 4-28 acetonide 00:00: 0.025 % 00 topical cream metformin 2021-0 No 1mg ER 1,000 mg 4-28 24 hr 00:00: tablet,exte 00 nded release (gastric) Cholestyram 2-0 No 1gram ine Light 4 4-28 gram powder 00:00: for susp in 00 a packet hydrocortis 2021-0 No 1% one 1 % 4-28 topical 00:00: cream 00 APPLY 2021-0 No SPARINGLY 4-28 TO AFFECTED 00:00: AREA(S) 00 TWICE DAILY triamcinolo 2-0 No 1% ne 4-28 acetonide 00:00: 0.025 % 00 topical cream metformin 2-0 No 1mg ER 1,000 mg 4-28 24 hr 00:00: tablet,exte 00 nded release (gastric) Cholestyram 2-0 No 1gram ine Light 4 4-28 gram powder 00:00: for susp in 00 a packet hydrocortis 2021-0 No 1% one 1 % 4-28 topical 00:00: cream 00 APPLY 2021-0 No SPARINGLY 4-28 TO AFFECTED 00:00: AREA(S) 00 TWICE DAILY triamcinolo 2-0 No 1% ne 4-28 acetonide 00:00: 0.025 % 00 topical cream metformin 2-0 No 1mg ER 1,000 mg 4-28 24 hr 00:00: tablet,exte 00 nded release (gastric) Cholestyram 2-0 No 1gram ine Light 4 4-28 gram powder 00:00: for susp in 00 a packet hydrocortis 2-0 No 1% one 1 % 4-28 topical 00:00: cream 00 mupirocin 2 2-0 No 1% % topical 4-28 ointment 00:00: 00 triamcinolo 2-0 No 1% ne 4-28 acetonide 00:00: 0.025 % 00 topical cream metformin 2-0 No 1mg ER 1,000 mg 4-28 24 hr 00:00: tablet,exte 00 nded release (gastric) Cholestyram 2-0 No 1gram ine Light 4 4-28 gram powder 00:00: for susp in 00 a packet hydrocortis 2-0 No 1% one 1 % 4-28 topical 00:00: cream 00 mupirocin 2 2-0 No 1% % topical 4-28 ointment 00:00: 00 triamcinolo 2-0 No 1% ne 4-28 acetonide 00:00: 0.025 % 00 topical cream metformin 2-0 No 1mg ER 1,000 mg 4-28 24 hr 00:00: tablet,exte 00 nded release (gastric) Cholestyram 2-0 No 1gram ine Light 4 4-28 gram powder 00:00: for susp in 00 a packet hydrocortis 2-0 No 1% one 1 % 4-28 topical 00:00: cream 00 mupirocin 2 2-0 No 1% % topical 4-28 ointment 00:00: 00 triamcinolo 2-0 No 1% ne 4-28 acetonide 00:00: 0.025 % 00 topical cream metformin 2-0 No 1mg ER 1,000 mg 4-28 24 hr 00:00: tablet,exte 00 nded release (gastric) Cholestyram 2-0 No 1gram ine Light 4 4-28 gram powder 00:00: for susp in 00 a packet hydrocortis 2-0 No 1% one 1 % 4-28 topical 00:00: cream 00 mupirocin 2 2-0 No 1% % topical 4-28 ointment 00:00: 00 triamcinolo 2022-0 No 1% ne 07-12 acetonide 00:00: 0.025 % 00 topical cream metformin 2021-0 No 1mg ER 1,000 mg 07-12 24 hr 00:00: tablet,exte 00 nded release (gastric) Cholestyram 2021-0 No 1gram ine Light 4 -28 gram powder 00:00: for susp in 00 a packet Januvia 50 2-0 No 1mg mg tablet 07-08 00:00: 00 Vitamin D2 2022-0 No 1(50,00 1,250 mcg 4-24 0 unit) (50,000 00:00: unit) 00 capsule Januvia 50 2-0 No 1mg mg tablet 24 00:00: 00 Vitamin D2 2022-0 No 1(50,00 1,250 mcg 4-24 0 unit) (50,000 00:00: unit) 00 capsule Januvia 50 2-0 No 1mg mg tablet 24 00:00: 00 Vitamin D2 2022-0 No 1(50,00 1,250 mcg 4-24 0 unit) (50,000 00:00: unit) 00 capsule Januvia 50 2-0 No 1mg mg tablet 424 00:00: 00 Vitamin D2 2022-0 No 1(50,00 1,250 mcg 4-24 0 unit) (50,000 00:00: unit) 00 capsule Januvia 50 2-0 No 1mg mg tablet 424 00:00: 00 Vitamin D2 2022-0 No 1(50,00 1,250 mcg 4-24 0 unit) (50,000 00:00: unit) 00 capsule Januvia 50 2-0 No 1mg mg tablet 4-24 00:00: 00 Vitamin D2 2022-0 No 1(50,00 1,250 mcg 4-24 0 unit) (50,000 00:00: unit) 00 capsule Januvia 50 2022-0 No 1mg mg tablet 4-24 00:00: 00 Vitamin D2 2022-0 No 1(50,00 1,250 mcg 4-24 0 unit) (50,000 00:00: unit) 00 capsule Januvia 50 2022-0 No 1mg mg tablet 4-24 00:00: 00 Vitamin D2 2022-0 No 1(50,00 1,250 mcg 4-24 0 unit) (50,000 00:00: unit) 00 capsule mupirocin 2 2021-0 No 1% % topical 4-19 ointment 00:00: 00 Dose 2021-0 No Unknown 4-19 00:00: 00 Dose 2021-0 No Unknown 4-19 00:00: 00 Dose 2021-0 No Unknown 4-19 00:00: 00 Dose 2021-0 No Unknown 4-19 00:00: 00 Dose 2021-0 No Unknown 4-19 00:00: 00 Dose 2021-0 No Unknown 4-19 00:00: 00 Dose 2021-0 No Unknown 4-19 00:00: 00 Dose 2021-0 No Unknown 4-19 00:00: 00 Dose 2021-0 No Unknown 4-19 00:00: 00 Dose 2021-0 No Unknown 4-19 00:00: 00 clobetasol 2021-0 No 1% 0.05 % 4-19 shampoo 00:00: 00 Dose 2021-0 No Unknown 4-19 00:00: 00 Dose 2021-0 No Unknown 4-19 00:00: 00 Nystop 2021-0 No 1unit/g 100,000 4-19 isabel unit/gram 00:00: topical 00 powder Nystop 2021-0 No 1unit/g 100,000 4-19 isabel unit/gram 00:00: topical 00 powder cholestyram 2021-0 No 4gram ine (with 4-19 sugar) 4 00:00: gram powder 00 for susp in a packet Dose 2021-0 No Unknown 4-19 00:00: 00 triamcinolo 2021-0 No 1% ne 4-19 acetonide 00:00: 0.025 % 00 topical cream triamcinolo 2021-0 No 1% ne 4-19 acetonide 00:00: 0.025 % 00 topical cream APPLY 2021-0 No SPARINGLY 4-19 TO AFFECTED 00:00: AREA(S) 00 TWICE DAILY clobetasol 2021-0 No 1% 0.05 % 4-19 shampoo 00:00: 00 ketoconazol 2-0 No 1% e 2 % 4-19 shampoo 00:00: 00 ketoconazol 2-0 No 1% e 2 % 4-19 shampoo 00:00: 00 clobetasol 2022-0 No 1% 0.05 % 4-19 topical 00:00: ointment 00 APPLY 2022-0 No SPARINGLY 4-19 TO AFFECTED 00:00: AREA(S) 00 TWICE DAILY clobetasol 2022-0 No 1% 0.05 % 4-19 shampoo 00:00: 00 aspirin 81 2022-0 No 1mg mg 4-19 tablet,katya 00:00: yed release 00 loratadine 2022-0 No 1mg 10 mg 4-19 tablet 00:00: 00 loratadine 2022-0 No 1mg 10 mg 4-19 tablet 00:00: 00 aspirin 81 2022-0 No 1mg mg 4-19 tablet,katya 00:00: yed release 00 sertraline 2022-0 No 1mg 50 mg 4-19 tablet 00:00: 00 atenolol 2022-0 No 1mg 100 mg 4-19 tablet 00:00: 00 metformin 2022-0 No 1mg 1,000 mg 4-19 tablet 00:00: 00 glimepiride 2022-0 No 1mg 4 mg tablet 4-19 00:00: 00 diclofenac 2022-0 No 1mg sodium 75 4-19 mg 00:00: tablet,katya 00 yed release glimepiride 2022-0 No 1mg 4 mg tablet 4-19 00:00: 00 atenolol 2022-0 No 1mg 100 mg 4-19 tablet 00:00: 00 sertraline 2022-0 No 1mg 50 mg 4-19 tablet 00:00: 00 metformin 2022-0 No 2mg ER 500 mg 4-19 tablet,exte 00:00: nded 00 release 24 hr naproxen 2022-0 No 1mg 500 mg 4-19 tablet 00:00: 00 trazodone 2022-0 No 1mg 50 mg 4-19 tablet 00:00: 00 trazodone 2022-0 No 1mg 50 mg 4-19 tablet 00:00: 00 naproxen 2022-0 No 1mg 500 mg 4-19 tablet 00:00: 00 Dose 2022-0 No Unknown 4-19 00:00: 00 Dose 2022-0 No Unknown 4-19 00:00: 00 Dose 2022-0 No Unknown 4-19 00:00: 00 omeprazole 2-0 No 1mg 40 mg 4-19 capsule,del 00:00: ayed 00 release sulconazole 2-0 No 1% 1 % topical 4-19 solution 00:00: 00 sulconazole 2022-0 No 1% 1 % topical 4-19 solution 00:00: 00 Dose 2022-0 No Unknown 4-19 00:00: 00 Dose 2022-0 No Unknown 4-19 00:00: 00 Dose 2022-0 No Unknown 4-19 00:00: 00 Dose 2022-0 No Unknown 4-19 00:00: 00 Dose 2022-0 No Unknown 4-19 00:00: 00 Dose 2022-0 No Unknown 4-19 00:00: 00 Dose 2022-0 No Unknown 4-19 00:00: 00 Dose 2022-0 No Unknown 4-19 00:00: 00 Dose 2022-0 No Unknown 4-19 00:00: 00 Dose 2022-0 No Unknown 4-19 00:00: 00 Dose 2022-0 No Unknown 4-19 00:00: 00 Dose 2022-0 No Unknown 4-19 00:00: 00 Dose 2022-0 No Unknown 4-19 00:00: 00 Dose 2022-0 No Unknown 4-19 00:00: 00 Dose 2022-0 No Unknown 4-19 00:00: 00 Dose 2022-0 No Unknown 4-19 00:00: 00 Dose 2022-0 No Unknown 4-19 00:00: 00 Dose 2022-0 No Unknown 4-19 00:00: 00 Dose 2022-0 No Unknown 4-19 00:00: 00 Dose 2022-0 No Unknown 4-19 00:00: 00 Dose 2022-0 No Unknown 4-19 00:00: 00 Dose 2022-0 No Unknown 4-19 00:00: 00 Dose 2022-0 No Unknown 4-19 00:00: 00 Dose 2022-0 No Unknown 4-19 00:00: 00 Dose 2022-0 No Unknown 4-19 00:00: 00 Dose 2022-0 No Unknown 4-19 00:00: 00 Dose 2022-0 No Unknown 4-19 00:00: 00 Dose 2022-0 No Unknown 4-19 00:00: 00 ketoconazol 2022-0 No 1% e 2 % 4-19 shampoo 00:00: 00 Dose 2022-0 No Unknown 4-19 00:00: 00 Dose 2022-0 No Unknown 4-19 00:00: 00 Dose 2022-0 No Unknown 4-19 00:00: 00 Dose 2022-0 No Unknown 4-19 00:00: 00 Dose 2022-0 No Unknown 4-19 00:00: 00 Dose 2022-0 No Unknown 4-19 00:00: 00 Dose 2022-0 No Unknown 4-19 00:00: 00 Dose 2022-0 No Unknown 4-19 00:00: 00 Dose 2022-0 No Unknown 4-19 00:00: 00 Dose 2022-0 No Unknown 4-19 00:00: 00 Dose 2022-0 No Unknown 4-19 00:00: 00 Dose 2022-0 No Unknown 4-19 00:00: 00 Dose 2022-0 No Unknown 4-19 00:00: 00 Dose 2022-0 No Unknown 4-19 00:00: 00 Dose 2022-0 No Unknown 4-19 00:00: 00 Dose 2022-0 No Unknown 4-19 00:00: 00 Dose 2022-0 No Unknown 4-19 00:00: 00 Dose 2022-0 No Unknown 4-19 00:00: 00 Dose 2022-0 No Unknown 4-19 00:00: 00 Dose 2022-0 No Unknown 4-19 00:00: 00 Dose 2022-0 No Unknown 4-19 00:00: 00 Dose 2022-0 No Unknown 4-19 00:00: 00 Dose 2022-0 No Unknown 4-19 00:00: 00 Dose 2022-0 No Unknown 4-19 00:00: 00 Dose 2022-0 No Unknown 4-19 00:00: 00 Dose 2022-0 No Unknown 4-19 00:00: 00 Dose 2022-0 No Unknown 4-19 00:00: 00 Dose 2022-0 No Unknown 4-19 00:00: 00 Dose 2022-0 No Unknown 4-19 00:00: 00 Dose 2022-0 No Unknown 4-19 00:00: 00 Dose 2022-0 No Unknown 4-19 00:00: 00 Dose 2022-0 No Unknown 4-19 00:00: 00 Dose 2-0 No Unknown 4-19 00:00: 00 Dose 2-0 No Unknown 4-19 00:00: 00 Dose 2-0 No Unknown 4-19 00:00: 00 Dose 2-0 No Unknown 4-19 00:00: 00 Dose 2-0 No Unknown 4-19 00:00: 00 Dose 2-0 No Unknown 4-19 00:00: 00 Dose 2-0 No Unknown 4-19 00:00: 00 Dose 2-0 No Unknown 4-19 00:00: 00 Dose 2-0 No Unknown 4-19 00:00: 00 Dose 2-0 No Unknown 4-19 00:00: 00 Dose 2-0 No Unknown 4-19 00:00: 00 Dose 2-0 No Unknown 4-19 00:00: 00 ketoconazol 2-0 No 1% e 2 % 4-19 shampoo 00:00: 00 clobetasol 2-0 No 1% 0.05 % 4-19 topical 00:00: ointment 00 Nystop 2021-0 No 1unit/g 100,000 4-19 isabel unit/gram 00:00: topical 00 powder Nystop 2-0 No 1unit/g 100,000 4-19 isabel unit/gram 00:00: topical 00 powder cholestyram 2021-0 No 4gram ine (with 4-19 sugar) 4 00:00: gram powder 00 for susp in a packet Dose 2021-0 No Unknown 4-19 00:00: 00 triamcinolo 2-0 No 1% ne 4-19 acetonide 00:00: 0.025 % 00 topical cream triamcinolo 2-0 No 1% ne 4-19 acetonide 00:00: 0.025 % 00 topical cream APPLY 2021-0 No SPARINGLY 4-19 TO AFFECTED 00:00: AREA(S) 00 TWICE DAILY clobetasol 2-0 No 1% 0.05 % 4-19 shampoo 00:00: 00 ketoconazol 2-0 No 1% e 2 % 4-19 shampoo 00:00: 00 ketoconazol 2-0 No 1% e 2 % 4-19 shampoo 00:00: 00 clobetasol 2022-0 No 1% 0.05 % 4-19 topical 00:00: ointment 00 APPLY 2022-0 No SPARINGLY 4-19 TO AFFECTED 00:00: AREA(S) 00 TWICE DAILY clobetasol 2022-0 No 1% 0.05 % 4-19 shampoo 00:00: 00 aspirin 81 2022-0 No 1mg mg 4-19 tablet,katya 00:00: yed release 00 loratadine 2022-0 No 1mg 10 mg 4-19 tablet 00:00: 00 loratadine 2022-0 No 1mg 10 mg 4-19 tablet 00:00: 00 aspirin 81 2022-0 No 1mg mg 4-19 tablet,katya 00:00: yed release 00 sertraline 2022-0 No 1mg 50 mg 4-19 tablet 00:00: 00 atenolol 2022-0 No 1mg 100 mg 4-19 tablet 00:00: 00 metformin 2022-0 No 1mg 1,000 mg 4-19 tablet 00:00: 00 glimepiride 2022-0 No 1mg 4 mg tablet 4-19 00:00: 00 diclofenac 2022-0 No 1mg sodium 75 4-19 mg 00:00: tablet,katya 00 yed release glimepiride 2022-0 No 1mg 4 mg tablet 4-19 00:00: 00 atenolol 2022-0 No 1mg 100 mg 4-19 tablet 00:00: 00 sertraline 2022-0 No 1mg 50 mg 4-19 tablet 00:00: 00 metformin 2022-0 No 2mg ER 500 mg 4-19 tablet,exte 00:00: nded 00 release 24 hr naproxen 2022-0 No 1mg 500 mg 4-19 tablet 00:00: 00 trazodone 2022-0 No 1mg 50 mg 4-19 tablet 00:00: 00 trazodone 2022-0 No 1mg 50 mg 4-19 tablet 00:00: 00 naproxen 2022-0 No 1mg 500 mg 4-19 tablet 00:00: 00 Dose 2022-0 No Unknown 4-19 00:00: 00 Dose 2022-0 No Unknown 4-19 00:00: 00 Dose 2022-0 No Unknown 4-19 00:00: 00 omeprazole 2022-0 No 1mg 40 mg 4-19 capsule,del 00:00: ayed 00 release sulconazole 2-0 No 1% 1 % topical 4-19 solution 00:00: 00 sulconazole 2022-0 No 1% 1 % topical 4-19 solution 00:00: 00 Dose 2022-0 No Unknown 4-19 00:00: 00 Dose 2022-0 No Unknown 4-19 00:00: 00 Dose 2022-0 No Unknown 4-19 00:00: 00 Dose 2022-0 No Unknown 4-19 00:00: 00 Dose 2022-0 No Unknown 4-19 00:00: 00 Dose 2022-0 No Unknown 4-19 00:00: 00 Dose 2022-0 No Unknown 4-19 00:00: 00 Dose 2022-0 No Unknown 4-19 00:00: 00 Dose 2022-0 No Unknown 4-19 00:00: 00 Dose 2022-0 No Unknown 4-19 00:00: 00 Dose 2022-0 No Unknown 4-19 00:00: 00 Dose 2022-0 No Unknown 4-19 00:00: 00 Dose 2022-0 No Unknown 4-19 00:00: 00 Dose 2022-0 No Unknown 4-19 00:00: 00 Dose 2022-0 No Unknown 4-19 00:00: 00 Dose 2022-0 No Unknown 4-19 00:00: 00 Dose 2022-0 No Unknown 4-19 00:00: 00 Dose 2022-0 No Unknown 4-19 00:00: 00 Dose 2022-0 No Unknown 4-19 00:00: 00 Dose 2022-0 No Unknown 4-19 00:00: 00 Dose 2022-0 No Unknown 4-19 00:00: 00 Dose 2022-0 No Unknown 4-19 00:00: 00 Dose 2022-0 No Unknown 4-19 00:00: 00 Dose 2022-0 No Unknown 4-19 00:00: 00 Dose 2022-0 No Unknown 4-19 00:00: 00 Dose 2022-0 No Unknown 4-19 00:00: 00 Dose 2022-0 No Unknown 4-19 00:00: 00 Dose 2022-0 No Unknown 4-19 00:00: 00 Dose 2022-0 No Unknown 4-19 00:00: 00 Dose 2022-0 No Unknown 4-19 00:00: 00 Dose 2022-0 No Unknown 4-19 00:00: 00 Dose 2022-0 No Unknown 4-19 00:00: 00 Dose 2022-0 No Unknown 4-19 00:00: 00 mupirocin 2 2022-0 No 1% % topical 4-19 ointment 00:00: 00 Dose 2022-0 No Unknown 4-19 00:00: 00 Dose 2022-0 No Unknown 4-19 00:00: 00 Dose 2022-0 No Unknown 4-19 00:00: 00 Dose 2022-0 No Unknown 4-19 00:00: 00 Dose 2022-0 No Unknown 4-19 00:00: 00 Dose 2022-0 No Unknown 4-19 00:00: 00 Dose 2022-0 No Unknown 4-19 00:00: 00 Dose 2022-0 No Unknown 4-19 00:00: 00 Dose 2022-0 No Unknown 4-19 00:00: 00 Dose 2022-0 No Unknown 4-19 00:00: 00 Dose 2022-0 No Unknown 4-19 00:00: 00 Dose 2022-0 No Unknown 4-19 00:00: 00 Dose 2022-0 No Unknown 4-19 00:00: 00 Dose 2022-0 No Unknown 4-19 00:00: 00 Dose 2022-0 No Unknown 4-19 00:00: 00 Dose 2022-0 No Unknown 4-19 00:00: 00 Dose 2022-0 No Unknown 4-19 00:00: 00 Dose 2022-0 No Unknown 4-19 00:00: 00 Dose 2022-0 No Unknown 4-19 00:00: 00 Dose 2022-0 No Unknown 4-19 00:00: 00 Dose 2022-0 No Unknown 4-19 00:00: 00 Dose 2022-0 No Unknown 4-19 00:00: 00 Dose 2022-0 No Unknown 4-19 00:00: 00 Dose 2022-0 No Unknown 4-19 00:00: 00 Dose 2022-0 No Unknown 4-19 00:00: 00 Dose 2022-0 No Unknown 4-19 00:00: 00 Dose 2022-0 No Unknown 4-19 00:00: 00 Dose 2022-0 No Unknown 4-19 00:00: 00 Dose 2-0 No Unknown 4-19 00:00: 00 Dose 2-0 No Unknown 4-19 00:00: 00 Dose 2-0 No Unknown 4-19 00:00: 00 Dose 2-0 No Unknown 4-19 00:00: 00 Dose 2-0 No Unknown 4- 00:00: 00 Dose 2-0 No Unknown 4-19 00:00: 00 Dose 2-0 No Unknown 4-19 00:00: 00 Dose 2-0 No Unknown 4-19 00:00: 00 Dose 2-0 No Unknown 4-19 00:00: 00 Dose 2-0 No Unknown 4-19 00:00: 00 Dose 2-0 No Unknown 4-19 00:00: 00 clobetasol 2-0 No 1% 0.05 % 4-19 shampoo 00:00: 00 aspirin 81 2021-0 No 1mg mg 19 tablet,katya 00:00: yed release 00 Nystop 2021-0 No 1unit/g 100,000 4-19 isabel unit/gram 00:00: topical 00 powder Nystop 2021-0 No 1unit/g 100,000 4-19 isabel unit/gram 00:00: topical 00 powder cholestyram 2021-0 No 4gram ine (with -19 sugar) 4 00:00: gram powder 00 for susp in a packet Dose 2021-0 No Unknown 419 00:00: 00 triamcinolo 2021-0 No 1% ne 4-19 acetonide 00:00: 0.025 % 00 topical cream triamcinolo 2021-0 No 1% ne 4-19 acetonide 00:00: 0.025 % 00 topical cream APPLY 2021-0 No SPARINGLY 4-19 TO AFFECTED 00:00: AREA(S) 00 TWICE DAILY clobetasol 2-0 No 1% 0.05 % 4-19 shampoo 00:00: 00 Dose 2-0 No Unknown 4-19 00:00: 00 Dose 2-0 No Unknown 4-19 00:00: 00 clobetasol 2-0 No 1% 0.05 % 4-19 topical 00:00: ointment 00 APPLY 2022-0 No SPARINGLY 4-19 TO AFFECTED 00:00: AREA(S) 00 TWICE DAILY clobetasol 2022-0 No 1% 0.05 % 4-19 shampoo 00:00: 00 aspirin 81 2-0 No 1mg mg 4-19 tablet,katya 00:00: yed release 00 loratadine 2022-0 No 1mg 10 mg 4-19 tablet 00:00: 00 loratadine 2022-0 No 1mg 10 mg 4-19 tablet 00:00: 00 aspirin 81 2022-0 No 1mg mg 4-19 tablet,katya 00:00: yed release 00 sertraline 2022-0 No 1mg 50 mg 4-19 tablet 00:00: 00 atenolol 2022-0 No 1mg 100 mg 4-19 tablet 00:00: 00 metformin 2022-0 No 1mg 1,000 mg 4-19 tablet 00:00: 00 glimepiride 2022-0 No 1mg 4 mg tablet 4-19 00:00: 00 diclofenac 2022-0 No 1mg sodium 75 4-19 mg 00:00: tablet,katya 00 yed release glimepiride 2-0 No 1mg 4 mg tablet 4-19 00:00: 00 atenolol 2022-0 No 1mg 100 mg 4-19 tablet 00:00: 00 sertraline 2022-0 No 1mg 50 mg 4-19 tablet 00:00: 00 metformin 2022-0 No 2mg ER 500 mg 4-19 tablet,exte 00:00: nded 00 release 24 hr naproxen 2022-0 No 1mg 500 mg 4-19 tablet 00:00: 00 trazodone 2022-0 No 1mg 50 mg 4-19 tablet 00:00: 00 trazodone 2022-0 No 1mg 50 mg 4-19 tablet 00:00: 00 naproxen 2022-0 No 1mg 500 mg 4-19 tablet 00:00: 00 Dose 2022-0 No Unknown 4-19 00:00: 00 Dose 2022-0 No Unknown 4-19 00:00: 00 Dose 2022-0 No Unknown 4-19 00:00: 00 omeprazole 2022-0 No 1mg 40 mg 4-19 capsule,del 00:00: ayed 00 release sulconazole 2022-0 No 1% 1 % topical 4-19 solution 00:00: 00 sulconazole 2022-0 No 1% 1 % topical 4-19 solution 00:00: 00 Dose 2022-0 No Unknown 4-19 00:00: 00 Dose 2022-0 No Unknown 4-19 00:00: 00 Dose 2022-0 No Unknown 4-19 00:00: 00 Dose 2022-0 No Unknown 4-19 00:00: 00 Dose 2022-0 No Unknown 4-19 00:00: 00 Dose 2022-0 No Unknown 4-19 00:00: 00 Dose 2022-0 No Unknown 4-19 00:00: 00 Dose 2022-0 No Unknown 4-19 00:00: 00 Dose 2022-0 No Unknown 4-19 00:00: 00 Dose 2022-0 No Unknown 4-19 00:00: 00 Dose 2022-0 No Unknown 4-19 00:00: 00 Dose 2022-0 No Unknown 4-19 00:00: 00 Dose 2022-0 No Unknown 4-19 00:00: 00 Dose 2022-0 No Unknown 4-19 00:00: 00 Dose 2022-0 No Unknown 4-19 00:00: 00 Dose 2022-0 No Unknown 4-19 00:00: 00 Dose 2022-0 No Unknown 4-19 00:00: 00 Dose 2022-0 No Unknown 4-19 00:00: 00 Dose 2022-0 No Unknown 4-19 00:00: 00 Dose 2022-0 No Unknown 4-19 00:00: 00 Dose 2022-0 No Unknown 4-19 00:00: 00 Dose 2022-0 No Unknown 4-19 00:00: 00 Dose 2022-0 No Unknown 4-19 00:00: 00 Dose 2022-0 No Unknown 4-19 00:00: 00 Dose 2022-0 No Unknown 4-19 00:00: 00 Dose 2022-0 No Unknown 4-19 00:00: 00 Dose 2022-0 No Unknown 4-19 00:00: 00 Dose 2022-0 No Unknown 4-19 00:00: 00 Dose 2022-0 No Unknown 4-19 00:00: 00 Dose 2022-0 No Unknown 4-19 00:00: 00 Dose 2022-0 No Unknown 4-19 00:00: 00 Dose 2022-0 No Unknown 4-19 00:00: 00 Dose 2022-0 No Unknown 4-19 00:00: 00 Dose 2022-0 No Unknown 4-19 00:00: 00 Dose 2022-0 No Unknown 4-19 00:00: 00 Dose 2022-0 No Unknown 4-19 00:00: 00 Dose 2022-0 No Unknown 4-19 00:00: 00 Dose 2022-0 No Unknown 4-19 00:00: 00 Dose 2022-0 No Unknown 4-19 00:00: 00 Dose 2022-0 No Unknown 4-19 00:00: 00 Dose 2022-0 No Unknown 4-19 00:00: 00 Dose 2022-0 No Unknown 4-19 00:00: 00 Dose 2022-0 No Unknown 4-19 00:00: 00 Dose 2022-0 No Unknown 4-19 00:00: 00 Dose 2022-0 No Unknown 4-19 00:00: 00 Dose 2022-0 No Unknown 4-19 00:00: 00 Dose 2022-0 No Unknown 4-19 00:00: 00 Dose 2022-0 No Unknown 4-19 00:00: 00 Dose 2022-0 No Unknown 4-19 00:00: 00 Dose 2022-0 No Unknown 4-19 00:00: 00 Dose 2022-0 No Unknown 4-19 00:00: 00 Dose 2022-0 No Unknown 4-19 00:00: 00 Dose 2022-0 No Unknown 4-19 00:00: 00 Dose 2022-0 No Unknown 4-19 00:00: 00 Dose 2022-0 No Unknown 4-19 00:00: 00 loratadine 2022-0 No 1mg 10 mg 4-19 tablet 00:00: 00 Dose 2022-0 No Unknown 4-19 00:00: 00 Dose 2022-0 No Unknown 4-19 00:00: 00 Dose 2022-0 No Unknown 4-19 00:00: 00 Dose 2022-0 No Unknown 4-19 00:00: 00 Dose 2022-0 No Unknown 4-19 00:00: 00 Dose 2022-0 No Unknown 4-19 00:00: 00 Dose 2022-0 No Unknown 4-19 00:00: 00 Dose 2022-0 No Unknown 4-19 00:00: 00 Dose 2022-0 No Unknown 4-19 00:00: 00 Dose 2022-0 No Unknown 4-19 00:00: 00 Dose 2022-0 No Unknown 4-19 00:00: 00 Dose 2022-0 No Unknown 4-19 00:00: 00 Dose 2022-0 No Unknown 4-19 00:00: 00 Dose 2022-0 No Unknown 4-19 00:00: 00 Dose 2022-0 No Unknown 4-19 00:00: 00 Dose 2022-0 No Unknown 4-19 00:00: 00 Dose 2022-0 No Unknown 4-19 00:00: 00 loratadine 2-0 No 1mg 10 mg 4-19 tablet 00:00: 00 aspirin 81 2-0 No 1mg mg 4-19 tablet,katya 00:00: yed release 00 sertraline 2-0 No 1mg 50 mg 4-19 tablet 00:00: 00 atenolol 2-0 No 1mg 100 mg 4-19 tablet 00:00: 00 Nystop 2-0 No 1unit/g 100,000 4-19 isabel unit/gram 00:00: topical 00 powder Nystop 2-0 No 1unit/g 100,000 4-19 isabel unit/gram 00:00: topical 00 powder cholestyram 2-0 No 4gram ine (with 4-19 sugar) 4 00:00: gram powder 00 for susp in a packet Dose 2-0 No Unknown 4-19 00:00: 00 metformin 2022-0 No 1mg 1,000 mg 4-19 tablet 00:00: 00 triamcinolo 2022-0 No 1% ne 4-19 acetonide 00:00: 0.025 % 00 topical cream triamcinolo 2-0 No 1% ne 4-19 acetonide 00:00: 0.025 % 00 topical cream mupirocin 2 2021-0 No 1% % topical 4-19 ointment 00:00: 00 clobetasol 2-0 No 1% 0.05 % 4-19 shampoo 00:00: 00 ketoconazol 2-0 No 1% e 2 % 4-19 shampoo 00:00: 00 ketoconazol 2022-0 No 1% e 2 % 4-19 shampoo 00:00: 00 clobetasol 2022-0 No 1% 0.05 % 4-19 topical 00:00: ointment 00 mupirocin 2 2-0 No 1% % topical 4-19 ointment 00:00: 00 clobetasol 2022-0 No 1% 0.05 % 4-19 shampoo 00:00: 00 aspirin 81 2022-0 No 1mg mg 4-19 tablet,katya 00:00: yed release 00 glimepiride 2022-0 No 1mg 4 mg tablet 4-19 00:00: 00 loratadine 2022-0 No 1mg 10 mg 4-19 tablet 00:00: 00 loratadine 2022-0 No 1mg 10 mg 4-19 tablet 00:00: 00 aspirin 81 2022-0 No 1mg mg 4-19 tablet,katya 00:00: yed release 00 sertraline 2022-0 No 1mg 50 mg 4-19 tablet 00:00: 00 atenolol 2022-0 No 1mg 100 mg 4-19 tablet 00:00: 00 metformin 2022-0 No 1mg 1,000 mg 4-19 tablet 00:00: 00 glimepiride 2022-0 No 1mg 4 mg tablet 4-19 00:00: 00 diclofenac 2022-0 No 1mg sodium 75 4-19 mg 00:00: tablet,katya 00 yed release glimepiride 2022-0 No 1mg 4 mg tablet 4-19 00:00: 00 atenolol 2022-0 No 1mg 100 mg 4-19 tablet 00:00: 00 diclofenac 2022-0 No 1mg sodium 75 4-19 mg 00:00: tablet,katya 00 yed release sertraline 2022-0 No 1mg 50 mg 4-19 tablet 00:00: 00 metformin 2022-0 No 2mg ER 500 mg 4-19 tablet,exte 00:00: nded 00 release 24 hr naproxen 2022-0 No 1mg 500 mg 4-19 tablet 00:00: 00 trazodone 2022-0 No 1mg 50 mg 4-19 tablet 00:00: 00 trazodone 2022-0 No 1mg 50 mg 4-19 tablet 00:00: 00 naproxen 2022-0 No 1mg 500 mg 4-19 tablet 00:00: 00 gabapentin 2022-0 No 1mg 300 mg 4-19 capsule 00:00: 00 gabapentin 2022-0 No 1mg 300 mg 4-19 capsule 00:00: 00 Dose 2022-0 No Unknown 4-19 00:00: 00 omeprazole 2022-0 No 1mg 40 mg 4-19 capsule,del 00:00: ayed 00 release glimepiride 2022-0 No 1mg 4 mg tablet 4-19 00:00: 00 sulconazole 2022-0 No 1% 1 % topical 4-19 solution 00:00: 00 sulconazole 2022-0 No 1% 1 % topical 4-19 solution 00:00: 00 Dose 2022-0 No Unknown 4-19 00:00: 00 Dose 2022-0 No Unknown 4-19 00:00: 00 Dose 2022-0 No Unknown 4-19 00:00: 00 Dose 2022-0 No Unknown 4-19 00:00: 00 Dose 2022-0 No Unknown 4-19 00:00: 00 Dose 2022-0 No Unknown 4-19 00:00: 00 Dose 2022-0 No Unknown 4-19 00:00: 00 Dose 2022-0 No Unknown 4-19 00:00: 00 atenolol 2022-0 No 1mg 100 mg 4-19 tablet 00:00: 00 Dose 2022-0 No Unknown 4-19 00:00: 00 Dose 2022-0 No Unknown 4-19 00:00: 00 Dose 2022-0 No Unknown 4-19 00:00: 00 Dose 2022-0 No Unknown 4-19 00:00: 00 Dose 2022-0 No Unknown 4-19 00:00: 00 Dose 2022-0 No Unknown 4-19 00:00: 00 Dose 2022-0 No Unknown 4-19 00:00: 00 Dose 2022-0 No Unknown 4-19 00:00: 00 Dose 2022-0 No Unknown 4-19 00:00: 00 Dose 2022-0 No Unknown 4-19 00:00: 00 sertraline 2022-0 No 1mg 50 mg 4-19 tablet 00:00: 00 Dose 2022-0 No Unknown 4-19 00:00: 00 Dose 2022-0 No Unknown 4-19 00:00: 00 Dose 2022-0 No Unknown 4-19 00:00: 00 Dose 2022-0 No Unknown 4-19 00:00: 00 Dose 2022-0 No Unknown 4-19 00:00: 00 Dose 2022-0 No Unknown 4-19 00:00: 00 Dose 2022-0 No Unknown 4-19 00:00: 00 Dose 2022-0 No Unknown 4-19 00:00: 00 Dose 2022-0 No Unknown 4-19 00:00: 00 Dose 2022-0 No Unknown 4-19 00:00: 00 metformin 2022-0 No 2mg ER 500 mg 4-19 tablet,exte 00:00: nded 00 release 24 hr Dose 2022-0 No Unknown 4-19 00:00: 00 Dose 2022-0 No Unknown 4-19 00:00: 00 Dose 2022-0 No Unknown 4-19 00:00: 00 Dose 2022-0 No Unknown 4-19 00:00: 00 Dose 2022-0 No Unknown 4-19 00:00: 00 Dose 2022-0 No Unknown 4-19 00:00: 00 Dose 2022-0 No Unknown 4-19 00:00: 00 Dose 2022-0 No Unknown 4-19 00:00: 00 Dose 2022-0 No Unknown 4-19 00:00: 00 Dose 2022-0 No Unknown 4-19 00:00: 00 naproxen 2022-0 No 1mg 500 mg 4-19 tablet 00:00: 00 Dose 2022-0 No Unknown 4-19 00:00: 00 Dose 2022-0 No Unknown 4-19 00:00: 00 Dose 2022-0 No Unknown 4-19 00:00: 00 Dose 2022-0 No Unknown 4-19 00:00: 00 Dose 2022-0 No Unknown 4-19 00:00: 00 Dose 2022-0 No Unknown 4-19 00:00: 00 Dose 2022-0 No Unknown 4-19 00:00: 00 Dose 2022-0 No Unknown 4-19 00:00: 00 Dose 2022-0 No Unknown 4-19 00:00: 00 Dose 2022-0 No Unknown 4-19 00:00: 00 trazodone 2022-0 No 1mg 50 mg 4-19 tablet 00:00: 00 Dose 2022-0 No Unknown 4-19 00:00: 00 Dose 2022-0 No Unknown 4-19 00:00: 00 Dose 2022-0 No Unknown 4-19 00:00: 00 Dose 2022-0 No Unknown 4-19 00:00: 00 Dose 2022-0 No Unknown 4-19 00:00: 00 Dose 2022-0 No Unknown 4-19 00:00: 00 Dose 2022-0 No Unknown 4-19 00:00: 00 Dose 2022-0 No Unknown 4-19 00:00: 00 Dose 2022-0 No Unknown 4-19 00:00: 00 Dose 2022-0 No Unknown 4-19 00:00: 00 trazodone 2022-0 No 1mg 50 mg 4-19 tablet 00:00: 00 Dose 2022-0 No Unknown 4-19 00:00: 00 Dose 2022-0 No Unknown 4-19 00:00: 00 Dose 2022-0 No Unknown 4-19 00:00: 00 Dose 2022-0 No Unknown 4-19 00:00: 00 Dose 2022-0 No Unknown 4-19 00:00: 00 Dose 2022-0 No Unknown 4-19 00:00: 00 Dose 2022-0 No Unknown 4-19 00:00: 00 Dose 2022-0 No Unknown 4-19 00:00: 00 Dose 2022-0 No Unknown 4-19 00:00: 00 Dose 2022-0 No Unknown 4-19 00:00: 00 naproxen 2022-0 No 1mg 500 mg 4-19 tablet 00:00: 00 Dose 2022-0 No Unknown 4-19 00:00: 00 Dose 2022-0 No Unknown 4-19 00:00: 00 Dose 2022-0 No Unknown 4-19 00:00: 00 Dose 2022-0 No Unknown 4-19 00:00: 00 gabapentin 2022-0 No 1mg 300 mg 4-19 capsule 00:00: 00 gabapentin 2022-0 No 1mg 300 mg 4-19 capsule 00:00: 00 Dose 2022-0 No Unknown 4-19 00:00: 00 omeprazole 2022-0 No 1mg 40 mg 4-19 capsule,del 00:00: ayed 00 release sulconazole 2022-0 No 1% 1 % topical 4-19 solution 00:00: 00 sulconazole 2022-0 No 1% 1 % topical 4-19 solution 00:00: 00 Nystop 2022-0 No 1unit/g 100,000 4-19 isabel unit/gram 00:00: topical 00 powder Dose 2-0 No Unknown 4-19 00:00: 00 Dose 2022-0 No Unknown 4-19 00:00: 00 Dose 2022-0 No Unknown 4-19 00:00: 00 Dose 2022-0 No Unknown 4-19 00:00: 00 Nystop 2-0 No 1unit/g 100,000 4-19 isabel unit/gram 00:00: topical 00 powder Nystop 2-0 No 1unit/g 100,000 4-19 isabel unit/gram 00:00: topical 00 powder cholestyram 2-0 No 4gram ine (with 4-19 sugar) 4 00:00: gram powder 00 for susp in a packet Dose 2021-0 No Unknown 4-19 00:00: 00 triamcinolo 2022-0 No 1% ne 4-19 acetonide 00:00: 0.025 % 00 topical cream triamcinolo 2-0 No 1% ne 4-19 acetonide 00:00: 0.025 % 00 topical cream mupirocin 2 2-0 No 1% % topical 4-19 ointment 00:00: 00 clobetasol 2022-0 No 1% 0.05 % 4-19 shampoo 00:00: 00 ketoconazol 2-0 No 1% e 2 % 4-19 shampoo 00:00: 00 ketoconazol 2022-0 No 1% e 2 % 4-19 shampoo 00:00: 00 Dose 2022-0 No Unknown 4-19 00:00: 00 clobetasol 2022-0 No 1% 0.05 % 4-19 topical 00:00: ointment 00 mupirocin 2 2-0 No 1% % topical 4-19 ointment 00:00: 00 clobetasol 2022-0 No 1% 0.05 % 4-19 shampoo 00:00: 00 aspirin 81 2-0 No 1mg mg 4-19 tablet,katya 00:00: yed release 00 loratadine 2022-0 No 1mg 10 mg 4-19 tablet 00:00: 00 loratadine 2022-0 No 1mg 10 mg 4-19 tablet 00:00: 00 aspirin 81 2022-0 No 1mg mg 4-19 tablet,katya 00:00: yed release 00 sertraline 2022-0 No 1mg 50 mg 4-19 tablet 00:00: 00 atenolol 2022-0 No 1mg 100 mg 4-19 tablet 00:00: 00 metformin 2022-0 No 1mg 1,000 mg 4-19 tablet 00:00: 00 Dose 2022-0 No Unknown 4-19 00:00: 00 glimepiride 2022-0 No 1mg 4 mg tablet 4-19 00:00: 00 diclofenac 2022-0 No 1mg sodium 75 4-19 mg 00:00: tablet,katya 00 yed release glimepiride 2022-0 No 1mg 4 mg tablet 4-19 00:00: 00 atenolol 2022-0 No 1mg 100 mg 4-19 tablet 00:00: 00 sertraline 2022-0 No 1mg 50 mg 4-19 tablet 00:00: 00 metformin 2022-0 No 2mg ER 500 mg 4-19 tablet,exte 00:00: nded 00 release 24 hr naproxen 2022-0 No 1mg 500 mg 4-19 tablet 00:00: 00 trazodone 2022-0 No 1mg 50 mg 4-19 tablet 00:00: 00 trazodone 2022-0 No 1mg 50 mg 4-19 tablet 00:00: 00 naproxen 2022-0 No 1mg 500 mg 4-19 tablet 00:00: 00 Dose 2022-0 No Unknown 4-19 00:00: 00 gabapentin 2022-0 No 1mg 300 mg 4-19 capsule 00:00: 00 gabapentin 2022-0 No 1mg 300 mg 4-19 capsule 00:00: 00 Dose 2022-0 No Unknown 4-19 00:00: 00 omeprazole 2022-0 No 1mg 40 mg 4-19 capsule,del 00:00: ayed 00 release sulconazole 2022-0 No 1% 1 % topical 4-19 solution 00:00: 00 sulconazole 2022-0 No 1% 1 % topical 4-19 solution 00:00: 00 Dose 2022-0 No Unknown 4-19 00:00: 00 Dose 2022-0 No Unknown 4-19 00:00: 00 Dose 2022-0 No Unknown 4-19 00:00: 00 Dose 2022-0 No Unknown 4-19 00:00: 00 Dose 2022-0 No Unknown 4-19 00:00: 00 Dose 2022-0 No Unknown 4-19 00:00: 00 Dose 2022-0 No Unknown 4-19 00:00: 00 Dose 2022-0 No Unknown 4-19 00:00: 00 Dose 2022-0 No Unknown 4-19 00:00: 00 Dose 2022-0 No Unknown 4-19 00:00: 00 Dose 2022-0 No Unknown 4-19 00:00: 00 Dose 2022-0 No Unknown 4-19 00:00: 00 Dose 2022-0 No Unknown 4-19 00:00: 00 Dose 2022-0 No Unknown 4-19 00:00: 00 Dose 2022-0 No Unknown 4-19 00:00: 00 Dose 2022-0 No Unknown 4-19 00:00: 00 Dose 2022-0 No Unknown 4-19 00:00: 00 Dose 2022-0 No Unknown 4-19 00:00: 00 Dose 2022-0 No Unknown 4-19 00:00: 00 Dose 2022-0 No Unknown 4-19 00:00: 00 Dose 2022-0 No Unknown 4-19 00:00: 00 Dose 2022-0 No Unknown 4-19 00:00: 00 Dose 2022-0 No Unknown 4-19 00:00: 00 Dose 2022-0 No Unknown 4-19 00:00: 00 Dose 2022-0 No Unknown 4-19 00:00: 00 Dose 2022-0 No Unknown 4-19 00:00: 00 Dose 2022-0 No Unknown 4-19 00:00: 00 Dose 2022-0 No Unknown 4-19 00:00: 00 Dose 2022-0 No Unknown 4-19 00:00: 00 Dose 2022-0 No Unknown 4-19 00:00: 00 Dose 2022-0 No Unknown 4-19 00:00: 00 Dose 2022-0 No Unknown 4-19 00:00: 00 Dose 2022-0 No Unknown 4-19 00:00: 00 Dose 2022-0 No Unknown 4-19 00:00: 00 Dose 2022-0 No Unknown 4-19 00:00: 00 Dose 2022-0 No Unknown 4-19 00:00: 00 Dose 2022-0 No Unknown 4-19 00:00: 00 Nystop 2022-0 No 1unit/g 100,000 4-19 isabel unit/gram 00:00: topical 00 powder Dose 2022-0 No Unknown 4-19 00:00: 00 Dose 2022-0 No Unknown 4-19 00:00: 00 Dose 2022-0 No Unknown 4-19 00:00: 00 Dose 2022-0 No Unknown 4-19 00:00: 00 Dose 2022-0 No Unknown 4-19 00:00: 00 Dose 2022-0 No Unknown 4-19 00:00: 00 Dose 2022-0 No Unknown 4-19 00:00: 00 Dose 2022-0 No Unknown 4-19 00:00: 00 Dose 2022-0 No Unknown 4-19 00:00: 00 Dose 2022-0 No Unknown 4-19 00:00: 00 Dose 2022-0 No Unknown 4-19 00:00: 00 Dose 2022-0 No Unknown 4-19 00:00: 00 Dose 2022-0 No Unknown 4-19 00:00: 00 Dose 2022-0 No Unknown 4-19 00:00: 00 Dose 2022-0 No Unknown 4-19 00:00: 00 Dose 2022-0 No Unknown 4-19 00:00: 00 Dose 2022-0 No Unknown 4-19 00:00: 00 Dose 2022-0 No Unknown 4-19 00:00: 00 Dose 2022-0 No Unknown 4-19 00:00: 00 Dose 2022-0 No Unknown 4-19 00:00: 00 Dose 2022-0 No Unknown 4-19 00:00: 00 Dose 2022-0 No Unknown 4-19 00:00: 00 Dose 2022-0 No Unknown 4-19 00:00: 00 Dose 2022-0 No Unknown 4-19 00:00: 00 Dose 2022-0 No Unknown 4-19 00:00: 00 Dose 2022-0 No Unknown 4-19 00:00: 00 Dose 2022-0 No Unknown 4-19 00:00: 00 Dose 2022-0 No Unknown 4-19 00:00: 00 Dose 2022-0 No Unknown 4-19 00:00: 00 Dose 2022-0 No Unknown 4-19 00:00: 00 Dose 2022-0 No Unknown 4-19 00:00: 00 Dose 2022-0 No Unknown 4-19 00:00: 00 Dose 2022-0 No Unknown 4-19 00:00: 00 Dose 2022-0 No Unknown 4-19 00:00: 00 Dose 2022-0 No Unknown 4-19 00:00: 00 Dose 2022-0 No Unknown 4-19 00:00: 00 Dose 2022-0 No Unknown 4-19 00:00: 00 Dose 2-0 No Unknown 4-19 00:00: 00 Dose 2-0 No Unknown 4-19 00:00: 00 Dose 2-0 No Unknown 4-19 00:00: 00 Dose 2-0 No Unknown 4-19 00:00: 00 Dose 2-0 No Unknown 4-19 00:00: 00 Dose 2-0 No Unknown 4-19 00:00: 00 Dose 2-0 No Unknown 4-19 00:00: 00 Dose 2-0 No Unknown 4-19 00:00: 00 Dose 2-0 No Unknown 4-19 00:00: 00 Dose 2-0 No Unknown 4-19 00:00: 00 Dose 2-0 No Unknown 4-19 00:00: 00 cholestyram 2-0 No 4gram ine (with 4-19 sugar) 4 00:00: gram powder 00 for susp in a packet Dose 2-0 No Unknown 4-19 00:00: 00 Dose 2-0 No Unknown 4-19 00:00: 00 Dose 2022-0 No Unknown 4-19 00:00: 00 Dose 2022-0 No Unknown 4-19 00:00: 00 Dose 2022-0 No Unknown 4-19 00:00: 00 Nystop 2022-0 No 1unit/g 100,000 4-19 isabel unit/gram 00:00: topical 00 powder Nystop 2-0 No 1unit/g 100,000 4-19 isaebl unit/gram 00:00: topical 00 powder cholestyram 2-0 No 4gram ine (with 4-19 sugar) 4 00:00: gram powder 00 for susp in a packet Dose 2-0 No Unknown 4-19 00:00: 00 triamcinolo 2022-0 No 1% ne 4-19 acetonide 00:00: 0.025 % 00 topical cream Dose 2-0 No Unknown 4-19 00:00: 00 triamcinolo 2022-0 No 1% ne 4-19 acetonide 00:00: 0.025 % 00 topical cream mupirocin 2 2-0 No 1% % topical 4-19 ointment 00:00: 00 clobetasol 2022-0 No 1% 0.05 % 4-19 shampoo 00:00: 00 ketoconazol 2022-0 No 1% e 2 % 4-19 shampoo 00:00: 00 ketoconazol 2022-0 No 1% e 2 % 4-19 shampoo 00:00: 00 clobetasol 2022-0 No 1% 0.05 % 4-19 topical 00:00: ointment 00 mupirocin 2 2-0 No 1% % topical 4-19 ointment 00:00: 00 clobetasol 2022-0 No 1% 0.05 % 4-19 shampoo 00:00: 00 aspirin 81 2022-0 No 1mg mg 4-19 tablet,katya 00:00: yed release 00 loratadine 2022-0 No 1mg 10 mg 4-19 tablet 00:00: 00 Dose 2022-0 No Unknown 4-19 00:00: 00 loratadine 2022-0 No 1mg 10 mg 4-19 tablet 00:00: 00 aspirin 81 2022-0 No 1mg mg 4-19 tablet,katya 00:00: yed release 00 sertraline 2022-0 No 1mg 50 mg 4-19 tablet 00:00: 00 atenolol 2022-0 No 1mg 100 mg 4-19 tablet 00:00: 00 metformin 2022-0 No 1mg 1,000 mg 4-19 tablet 00:00: 00 glimepiride 2022-0 No 1mg 4 mg tablet 4-19 00:00: 00 diclofenac 2022-0 No 1mg sodium 75 4-19 mg 00:00: tablet,katya 00 yed release glimepiride 2022-0 No 1mg 4 mg tablet 4-19 00:00: 00 atenolol 2022-0 No 1mg 100 mg 4-19 tablet 00:00: 00 sertraline 2022-0 No 1mg 50 mg 4-19 tablet 00:00: 00 Dose 2022-0 No Unknown 4-19 00:00: 00 metformin 2022-0 No 2mg ER 500 mg 4-19 tablet,exte 00:00: nded 00 release 24 hr naproxen 2022-0 No 1mg 500 mg 4-19 tablet 00:00: 00 trazodone 2022-0 No 1mg 50 mg 4-19 tablet 00:00: 00 trazodone 2022-0 No 1mg 50 mg 4-19 tablet 00:00: 00 naproxen 2022-0 No 1mg 500 mg 4-19 tablet 00:00: 00 gabapentin 2022-0 No 1mg 300 mg 4-19 capsule 00:00: 00 gabapentin 2022-0 No 1mg 300 mg 4-19 capsule 00:00: 00 Dose 2022-0 No Unknown 4-19 00:00: 00 omeprazole 2022-0 No 1mg 40 mg 4-19 capsule,del 00:00: ayed 00 release sulconazole 2022-0 No 1% 1 % topical 4-19 solution 00:00: 00 Dose 2022-0 No Unknown 4-19 00:00: 00 sulconazole 2022-0 No 1% 1 % topical 4-19 solution 00:00: 00 Dose 2022-0 No Unknown 4-19 00:00: 00 Dose 2022-0 No Unknown 4-19 00:00: 00 Dose 2022-0 No Unknown 4-19 00:00: 00 Dose 2022-0 No Unknown 4-19 00:00: 00 Dose 2022-0 No Unknown 4-19 00:00: 00 Dose 2022-0 No Unknown 4-19 00:00: 00 Dose 2022-0 No Unknown 4-19 00:00: 00 Dose 2022-0 No Unknown 4-19 00:00: 00 Dose 2022-0 No Unknown 4-19 00:00: 00 Dose 2022-0 No Unknown 4-19 00:00: 00 Dose 2022-0 No Unknown 4-19 00:00: 00 Dose 2022-0 No Unknown 4-19 00:00: 00 Dose 2022-0 No Unknown 4-19 00:00: 00 Dose 2022-0 No Unknown 4-19 00:00: 00 Dose 2022-0 No Unknown 4-19 00:00: 00 Dose 2022-0 No Unknown 4-19 00:00: 00 Dose 2022-0 No Unknown 4-19 00:00: 00 Dose 2022-0 No Unknown 4-19 00:00: 00 Dose 2022-0 No Unknown 4-19 00:00: 00 Dose 2022-0 No Unknown 4-19 00:00: 00 Dose 2022-0 No Unknown 4-19 00:00: 00 Dose 2022-0 No Unknown 4-19 00:00: 00 Dose 2022-0 No Unknown 4-19 00:00: 00 Dose 2022-0 No Unknown 4-19 00:00: 00 Dose 2022-0 No Unknown 4-19 00:00: 00 Dose 2022-0 No Unknown 4-19 00:00: 00 Dose 2022-0 No Unknown 4-19 00:00: 00 Dose 2022-0 No Unknown 4-19 00:00: 00 Dose 2022-0 No Unknown 4-19 00:00: 00 Dose 2022-0 No Unknown 4-19 00:00: 00 Dose 2022-0 No Unknown 4-19 00:00: 00 Dose 2022-0 No Unknown 4-19 00:00: 00 Dose 2022-0 No Unknown 4-19 00:00: 00 Dose 2022-0 No Unknown 4-19 00:00: 00 Dose 2022-0 No Unknown 4-19 00:00: 00 Dose 2022-0 No Unknown 4-19 00:00: 00 Dose 2022-0 No Unknown 4-19 00:00: 00 Dose 2022-0 No Unknown 4-19 00:00: 00 Dose 2022-0 No Unknown 4-19 00:00: 00 Dose 2022-0 No Unknown 4-19 00:00: 00 Dose 2022-0 No Unknown 4-19 00:00: 00 Dose 2022-0 No Unknown 4-19 00:00: 00 Dose 2022-0 No Unknown 4-19 00:00: 00 Dose 2022-0 No Unknown 4-19 00:00: 00 Dose 2022-0 No Unknown 4-19 00:00: 00 Dose 2022-0 No Unknown 4-19 00:00: 00 Dose 2022-0 No Unknown 4-19 00:00: 00 Dose 2022-0 No Unknown 4-19 00:00: 00 Dose 2022-0 No Unknown 4-19 00:00: 00 Dose 2022-0 No Unknown 4-19 00:00: 00 Dose 2022-0 No Unknown 4-19 00:00: 00 Dose 2022-0 No Unknown 4-19 00:00: 00 Dose 2022-0 No Unknown 4-19 00:00: 00 Dose 2022-0 No Unknown 4-19 00:00: 00 Dose 2022-0 No Unknown 4-19 00:00: 00 Dose 2022-0 No Unknown 4-19 00:00: 00 Dose 2022-0 No Unknown 4-19 00:00: 00 Dose 2022-0 No Unknown 4-19 00:00: 00 Dose 2022-0 No Unknown 4-19 00:00: 00 Dose 2022-0 No Unknown 4-19 00:00: 00 Dose 2022-0 No Unknown 4-19 00:00: 00 Dose 2022-0 No Unknown 4-19 00:00: 00 Dose 2022-0 No Unknown 4-19 00:00: 00 Dose 2022-0 No Unknown 4-19 00:00: 00 Dose 2022-0 No Unknown 4-19 00:00: 00 Dose 2022-0 No Unknown 4-19 00:00: 00 Dose 2022-0 No Unknown 4-19 00:00: 00 Dose 2022-0 No Unknown 4-19 00:00: 00 Dose 2022-0 No Unknown 4-19 00:00: 00 Dose 2022-0 No Unknown 4-19 00:00: 00 Dose 2022-0 No Unknown 4-19 00:00: 00 Dose 2022-0 No Unknown 4-19 00:00: 00 Dose 2022-0 No Unknown 4-19 00:00: 00 Dose 2022-0 No Unknown 4-19 00:00: 00 Dose 2022-0 No Unknown 4-19 00:00: 00 Dose 2022-0 No Unknown 4-19 00:00: 00 Dose 2022-0 No Unknown 4-19 00:00: 00 Dose 2022-0 No Unknown 4-19 00:00: 00 Dose 2022-0 No Unknown 4-19 00:00: 00 Dose 2-0 No Unknown 4-19 00:00: 00 Dose 2-0 No Unknown 4-19 00:00: 00 Dose 2-0 No Unknown 4-19 00:00: 00 Dose 2-0 No Unknown 4-19 00:00: 00 Dose 2-0 No Unknown 4-19 00:00: 00 triamcinolo 2-0 No 1% ne 4-19 acetonide 00:00: 0.025 % 00 topical cream Dose 2021-0 No Unknown 4-19 00:00: 00 Dose 2-0 No Unknown 4-19 00:00: 00 Dose 2-0 No Unknown 4-19 00:00: 00 Dose 2-0 No Unknown 4-19 00:00: 00 Dose 2-0 No Unknown 4-19 00:00: 00 Dose 2-0 No Unknown 4-19 00:00: 00 Dose 2-0 No Unknown 4-19 00:00: 00 Dose 2-0 No Unknown 4-19 00:00: 00 Nystop 2-0 No 1unit/g 100,000 4-19 isabel unit/gram 00:00: topical 00 powder Nystop 2-0 No 1unit/g 100,000 4-19 isabel unit/gram 00:00: topical 00 powder cholestyram 2021-0 No 4gram ine (with 4-19 sugar) 4 00:00: gram powder 00 for susp in a packet Dose 2021-0 No Unknown 4-19 00:00: 00 triamcinolo 2-0 No 1% ne 4-19 acetonide 00:00: 0.025 % 00 topical cream Dose 2021-0 No Unknown 4-19 00:00: 00 triamcinolo 2-0 No 1% ne 4-19 acetonide 00:00: 0.025 % 00 topical cream mupirocin 2 2021-0 No 1% % topical 4-19 ointment 00:00: 00 clobetasol 2-0 No 1% 0.05 % 4-19 shampoo 00:00: 00 ketoconazol 2-0 No 1% e 2 % 4-19 shampoo 00:00: 00 ketoconazol 2-0 No 1% e 2 % 4-19 shampoo 00:00: 00 clobetasol 2022-0 No 1% 0.05 % 4-19 topical 00:00: ointment 00 mupirocin 2 2022-0 No 1% % topical 4-19 ointment 00:00: 00 clobetasol 2022-0 No 1% 0.05 % 4-19 shampoo 00:00: 00 aspirin 81 2022-0 No 1mg mg 4-19 tablet,katya 00:00: yed release 00 loratadine 2022-0 No 1mg 10 mg 4-19 tablet 00:00: 00 Dose 2022-0 No Unknown 4-19 00:00: 00 loratadine 2022-0 No 1mg 10 mg 4-19 tablet 00:00: 00 aspirin 81 2022-0 No 1mg mg 4-19 tablet,katya 00:00: yed release 00 sertraline 2022-0 No 1mg 50 mg 4-19 tablet 00:00: 00 atenolol 2022-0 No 1mg 100 mg 4-19 tablet 00:00: 00 metformin 2022-0 No 1mg 1,000 mg 4-19 tablet 00:00: 00 glimepiride 2022-0 No 1mg 4 mg tablet 4-19 00:00: 00 diclofenac 2022-0 No 1mg sodium 75 4-19 mg 00:00: tablet,katya 00 yed release glimepiride 2022-0 No 1mg 4 mg tablet 4-19 00:00: 00 atenolol 2022-0 No 1mg 100 mg 4-19 tablet 00:00: 00 sertraline 2022-0 No 1mg 50 mg 4-19 tablet 00:00: 00 triamcinolo 2022-0 No 1% ne 4-19 acetonide 00:00: 0.025 % 00 topical cream Dose 2022-0 No Unknown 4-19 00:00: 00 metformin 2022-0 No 2mg ER 500 mg 4-19 tablet,exte 00:00: nded 00 release 24 hr naproxen 2022-0 No 1mg 500 mg 4-19 tablet 00:00: 00 trazodone 2022-0 No 1mg 50 mg 4-19 tablet 00:00: 00 trazodone 2022-0 No 1mg 50 mg 4-19 tablet 00:00: 00 naproxen 2022-0 No 1mg 500 mg 4-19 tablet 00:00: 00 gabapentin 2022-0 No 1mg 300 mg 4-19 capsule 00:00: 00 gabapentin 2022-0 No 1mg 300 mg 4-19 capsule 00:00: 00 Dose 2022-0 No Unknown 4-19 00:00: 00 omeprazole 2022-0 No 1mg 40 mg 4-19 capsule,del 00:00: ayed 00 release sulconazole 2022-0 No 1% 1 % topical 4-19 solution 00:00: 00 Dose 2022-0 No Unknown 4-19 00:00: 00 sulconazole 2022-0 No 1% 1 % topical 4-19 solution 00:00: 00 Dose 2022-0 No Unknown 4-19 00:00: 00 Dose 2022-0 No Unknown 4-19 00:00: 00 Dose 2022-0 No Unknown 4-19 00:00: 00 Dose 2022-0 No Unknown 4-19 00:00: 00 Dose 2022-0 No Unknown 4-19 00:00: 00 Dose 2022-0 No Unknown 4-19 00:00: 00 Dose 2022-0 No Unknown 4-19 00:00: 00 Dose 2022-0 No Unknown 4-19 00:00: 00 Dose 2022-0 No Unknown 4-19 00:00: 00 Dose 2022-0 No Unknown 4-19 00:00: 00 Dose 2022-0 No Unknown 4-19 00:00: 00 Dose 2022-0 No Unknown 4-19 00:00: 00 Dose 2022-0 No Unknown 4-19 00:00: 00 Dose 2022-0 No Unknown 4-19 00:00: 00 Dose 2022-0 No Unknown 4-19 00:00: 00 Dose 2022-0 No Unknown 4-19 00:00: 00 Dose 2022-0 No Unknown 4-19 00:00: 00 Dose 2022-0 No Unknown 4-19 00:00: 00 Dose 2022-0 No Unknown 4-19 00:00: 00 Dose 2022-0 No Unknown 4-19 00:00: 00 Dose 2022-0 No Unknown 4-19 00:00: 00 Dose 2022-0 No Unknown 4-19 00:00: 00 Dose 2022-0 No Unknown 4-19 00:00: 00 Dose 2022-0 No Unknown 4-19 00:00: 00 Dose 2022-0 No Unknown 4-19 00:00: 00 Dose 2022-0 No Unknown 4-19 00:00: 00 Dose 2022-0 No Unknown 4-19 00:00: 00 Dose 2022-0 No Unknown 4-19 00:00: 00 Dose 2022-0 No Unknown 4-19 00:00: 00 Dose 2022-0 No Unknown 4-19 00:00: 00 Dose 2022-0 No Unknown 4-19 00:00: 00 Dose 2022-0 No Unknown 4-19 00:00: 00 Dose 2022-0 No Unknown 4-19 00:00: 00 Dose 2022-0 No Unknown 4-19 00:00: 00 Dose 2022-0 No Unknown 4-19 00:00: 00 Dose 2022-0 No Unknown 4-19 00:00: 00 Dose 2022-0 No Unknown 4-19 00:00: 00 Dose 2022-0 No Unknown 4-19 00:00: 00 Dose 2022-0 No Unknown 4-19 00:00: 00 Dose 2022-0 No Unknown 4-19 00:00: 00 Dose 2022-0 No Unknown 4-19 00:00: 00 Dose 2022-0 No Unknown 4-19 00:00: 00 Dose 2022-0 No Unknown 4-19 00:00: 00 Dose 2022-0 No Unknown 4-19 00:00: 00 Dose 2022-0 No Unknown 4-19 00:00: 00 Dose 2022-0 No Unknown 4-19 00:00: 00 Dose 2022-0 No Unknown 4-19 00:00: 00 Dose 2022-0 No Unknown 4-19 00:00: 00 Dose 2022-0 No Unknown 4-19 00:00: 00 Dose 2022-0 No Unknown 4-19 00:00: 00 Dose 2022-0 No Unknown 4-19 00:00: 00 Dose 2022-0 No Unknown 4-19 00:00: 00 Dose 2022-0 No Unknown 4-19 00:00: 00 Dose 2022-0 No Unknown 4-19 00:00: 00 Dose 2022-0 No Unknown 4-19 00:00: 00 Dose 2022-0 No Unknown 4-19 00:00: 00 Dose 2022-0 No Unknown 4-19 00:00: 00 Dose 2022-0 No Unknown 4-19 00:00: 00 Dose 2022-0 No Unknown 4-19 00:00: 00 Dose 2022-0 No Unknown 4-19 00:00: 00 Dose 2022-0 No Unknown 4-19 00:00: 00 Dose 2022-0 No Unknown 4-19 00:00: 00 Dose 2022-0 No Unknown 4-19 00:00: 00 Dose 2022-0 No Unknown 4-19 00:00: 00 Dose 2022-0 No Unknown 4-19 00:00: 00 Dose 2022-0 No Unknown 4-19 00:00: 00 Dose 2022-0 No Unknown 4-19 00:00: 00 Dose 2022-0 No Unknown 4-19 00:00: 00 Dose 2022-0 No Unknown 4-19 00:00: 00 Dose 2022-0 No Unknown 4-19 00:00: 00 Dose 2022-0 No Unknown 4-19 00:00: 00 Dose 2022-0 No Unknown 4-19 00:00: 00 Dose 2022-0 No Unknown 4-19 00:00: 00 Dose 2022-0 No Unknown 4-19 00:00: 00 Dose 2022-0 No Unknown 4-19 00:00: 00 Dose 2022-0 No Unknown 4-19 00:00: 00 Dose 2022-0 No Unknown 4-19 00:00: 00 Dose 2022-0 No Unknown 4-19 00:00: 00 Dose 2022-0 No Unknown 4-19 00:00: 00 Dose 2022-0 No Unknown 4-19 00:00: 00 Vital Signs Vital Name Observation Time Observation Value Comments Source BP Systolic 2021-12-17 16:36:00 119 mm[Hg] BP Diastolic 2021-12-17 16:36:00 71 mm[Hg] Weight Measured 2021-12-17 16:36:00 226.00 pounds Height Measured 2021-12-17 16:36:00 70.00 inches Body Temperature 2021-12-17 16:36:00 97.70 degrees Heart Rate 2021-12-17 16:36:00 97.00 /min Respiratory Rate 2021-12-17 16:36:00 BP Systolic 2021-12-06 16:51:00 108 mm[Hg] BP Diastolic 2021-12-06 16:51:00 71 mm[Hg] Weight Measured 2021-12-06 16:51:00 224.40 pounds Height Measured 2021-12-06 16:51:00 70.00 inches Body Temperature 2021-12-06 16:51:00 97.30 degrees Heart Rate 2021-12-06 16:51:00 89.00 /min Respiratory Rate 2021-12-06 16:51:00 24.00 /min BP Systolic 2021-12-05 15:11:00 139 mm[Hg] BP Diastolic 2021-12-05 15:11:00 85 mm[Hg] Weight Measured 2021-12-05 15:11:00 226.40 pounds Height Measured 2021-12-05 15:11:00 70.00 inches Body Temperature 2021-12-05 15:11:00 97.10 degrees Heart Rate 2021-12-05 15:11:00 95.00 /min Respiratory Rate 2021-12-05 15:11:00 BP Systolic 2021-11-01 08:39:00 136 mm[Hg] BP Diastolic 2021-11-01 08:39:00 90 mm[Hg] Weight Measured 2021-11-01 08:39:00 223.80 pounds Height Measured 2021-11-01 08:39:00 70.00 inches Body Temperature 2021-11-01 08:39:00 97.10 degrees Heart Rate 2021-11-01 08:39:00 Respiratory Rate 2021-11-01 08:39:00 BP Systolic 2021-10-15 16:54:00 121 mm[Hg] BP Diastolic 2021-10-15 16:54:00 70 mm[Hg] Weight Measured 2021-10-15 16:54:00 226.20 pounds Height Measured 2021-10-15 16:54:00 70.00 inches Body Temperature 2021-10-15 16:54:00 98.70 degrees Heart Rate 2021-10-15 16:54:00 98.00 /min Respiratory Rate 2021-10-15 16:54:00 24.00 /min BP Systolic 2021-10-03 08:36:00 138 mm[Hg] BP Diastolic 2021-10-03 08:36:00 91 mm[Hg] Weight Measured 2021-10-03 08:36:00 223.80 pounds Height Measured 2021-10-03 08:36:00 70.00 inches Body Temperature 2021-10-03 08:36:00 97.20 degrees Heart Rate 2021-10-03 08:36:00 91.00 /min Respiratory Rate 2021-10-03 08:36:00 BP Systolic 2021-09-19 08:53:00 120 mm[Hg] BP Diastolic 2021-09-19 08:53:00 77 mm[Hg] Weight Measured 2021-09-19 08:53:00 225.80 pounds Height Measured 2021-09-19 08:53:00 70.00 inches Body Temperature 2021-09-19 08:53:00 97.70 degrees Heart Rate 2021-09-19 08:53:00 89.00 /min Respiratory Rate 2021-09-19 08:53:00 BP Systolic 2021-09-13 08:37:00 121 mm[Hg] BP Diastolic 2021-09-13 08:37:00 75 mm[Hg] Weight Measured 2021-09-13 08:37:00 225.20 pounds Height Measured 2021-09-13 08:37:00 70.00 inches Body Temperature 2021-09-13 08:37:00 98.40 degrees Heart Rate 2021-09-13 08:37:00 92.00 /min Respiratory Rate 2021-09-13 08:37:00 24.00 /min BP Systolic 2021-09-10 08:02:00 123 mm[Hg] BP Diastolic 2021-09-10 08:02:00 78 mm[Hg] Weight Measured 2021-09-10 08:02:00 226.20 pounds Height Measured 2021-09-10 08:02:00 70.00 inches Body Temperature 2021-09-10 08:02:00 98.40 degrees Heart Rate 2021-09-10 08:02:00 94.00 /min Respiratory Rate 2021-09-10 08:02:00 BP Systolic 2021-07-25 09:47:00 129 mm[Hg] BP Diastolic 2021-07-25 09:47:00 85 mm[Hg] Weight Measured 2021-07-25 09:47:00 123.40 pounds Height Measured 2021-07-25 09:47:00 70.00 inches Body Temperature 2021-07-25 09:47:00 98.20 degrees Heart Rate 2021-07-25 09:47:00 83.00 /min Respiratory Rate 2021-07-25 09:47:00 18.00 /min BP Systolic 2021-07-12 13:59:00 137 mm[Hg] BP Diastolic 2021-07-12 13:59:00 84 mm[Hg] Weight Measured 2021-07-12 13:59:00 228.80 pounds Height Measured 2021-07-12 13:59:00 70.00 inches Body Temperature 2021-07-12 13:59:00 97.30 degrees Heart Rate 2021-07-12 13:59:00 100.00 /min Respiratory Rate 2021-07-12 13:59:00 BP Systolic 2021-07-03 13:35:00 136 mm[Hg] BP Diastolic 2021-07-03 13:35:00 84 mm[Hg] Weight Measured 2021-07-03 13:35:00 223.40 pounds Height Measured 2021-07-03 13:35:00 6.00 inches Body Temperature 2021-07-03 13:35:00 97.60 degrees Heart Rate 2021-07-03 13:35:00 97.00 /min Respiratory Rate 2021-07-03 13:35:00 16.00 /min Procedures This patient has no known procedures. Plan of Care Planned Activity Planned Date Details Comments Source Goal Plan of Care Note [code = 48025-6] Goal Plan of Care Note [code = 40308-1] Goal Plan of Care Note [code = 59512-6] Goal Plan of Care Note [code = 34182-4] Goal Plan of Care Note [code = 31585-9] Goal Plan of Care Note [code = 77006-7] Goal Plan of Care Note [code = 80676-5] Goal Plan of Care Note [code = 15129-1] Goal Plan of Care Note [code = 24960-7] Goal Plan of Care Note [code = 95201-6] Goal Plan of Care Note [code = 12199-7] Goal Plan of Care Note [code = 87897-9] Goal Plan of Care Note [code = 41908-0] Goal Plan of Care Note [code = 83975-2] Goal Plan of Care Note [code = 65109-6] Goal Plan of Care Note [code = 10506-2] Goal Plan of Care Note [code = 83564-0] Goal Plan of Care Note [code = 74244-2] Goal Plan of Care Note [code = 12119-3] Goal Plan of Care Note [code = 13003-7] Goal Plan of Care Note [code = 06029-2] Goal Plan of Care Note [code = 41967-1] Goal Plan of Care Note [code = 41349-2] Goal Plan of Care Note [code = 53266-2] Goal Plan of Care Note [code = 16541-8] Goal Plan of Care Note [code = 02376-4] Goal Plan of Care Note [code = 00945-5] Goal Plan of Care Note [code = 86256-9] Goal Plan of Care Note [code = 59327-2] Goal Plan of Care Note [code = 83566-2] Goal Plan of Care Note [code = 69691-7] Goal Plan of Care Note [code = 39919-8] Goal Plan of Care Note [code = 34417-9] Goal Plan of Care Note [code = 81311-8] Goal Plan of Care Note [code = 28984-7] Goal Plan of Care Note [code = 76859-0] Goal Plan of Care Note [code = 22521-6] Goal Plan of Care Note [code = 42621-5] Goal Plan of Care Note [code = 53725-1] Goal Plan of Care Note [code = 67301-0] Goal Plan of Care Note [code = 47001-8] Goal Plan of Care Note [code = 45484-6] Goal Plan of Care Note [code = 55180-4] Goal Plan of Care Note [code = 34217-6] Goal Plan of Care Note [code = 62127-5] Goal Plan of Care Note [code = 15668-7] Goal Plan of Care Note [code = 63939-3] Goal Plan of Care Note [code = 87928-5] Goal Plan of Care Note [code = 03096-4] Goal Plan of Care Note [code = 82143-2] Goal Plan of Care Note [code = 08623-0] Goal Plan of Care Note [code = 29869-1] Goal Plan of Care Note [code = 99982-5] Goal Plan of Care Note [code = 19730-5] Goal Plan of Care Note [code = 80593-1] Goal Plan of Care Note [code = 80410-7] Goal Plan of Care Note [code = 25151-6] Goal Plan of Care Note [code = 04841-7] Goal Plan of Care Note [code = 73119-4] Goal Plan of Care Note [code = 02553-8] Goal Plan of Care Note [code = 86694-5] Goal Plan of Care Note [code = 63368-6] Goal Plan of Care Note [code = 42669-3] Goal Plan of Care Note [code = 79841-8] Goal Plan of Care Note [code = 36417-0] Goal Plan of Care Note [code = 98059-0] Goal Plan of Care Note [code = 01538-1] Goal Plan of Care Note [code = 13755-5] Goal Plan of Care Note [code = 46557-9] Goal Plan of Care Note [code = 71158-3] Goal Plan of Care Note [code = 17281-0] Goal Plan of Care Note [code = 80797-5] Goal Plan of Care Note [code = 36338-6] Goal Plan of Care Note [code = 73005-9] Goal Plan of Care Note [code = 45882-9] Goal Plan of Care Note [code = 52424-0] Goal Plan of Care Note [code = 17881-7] Goal Plan of Care Note [code = 13663-8] Goal Plan of Care Note [code = 04033-7] Goal Plan of Care Note [code = 01044-9] Goal Plan of Care Note [code = 56031-3] Goal Plan of Care Note [code = 88186-2] Goal Plan of Care Note [code = 73191-3] Goal Plan of Care Note [code = 43745-2] Goal Plan of Care Note [code = 76963-6] Goal Plan of Care Note [code = 75264-8] Goal Plan of Care Note [code = 32749-6] Goal Plan of Care Note [code = 56160-2] Goal Plan of Care Note [code = 12589-9] Goal Plan of Care Note [code = 04119-4] Goal Plan of Care Note [code = 08811-1] Goal Plan of Care Note [code = 38290-3] Goal Plan of Care Note [code = 20832-2] Goal Plan of Care Note [code = 83955-9] Goal Plan of Care Note [code = 12834-4] Goal Plan of Care Note [code = 13174-7] Goal Plan of Care Note [code = 31343-8] Goal Plan of Care Note [code = 77327-9] Goal Plan of Care Note [code = 84403-5] Goal Plan of Care Note [code = 79763-3] Goal Plan of Care Note [code = 80394-3] Goal Plan of Care Note [code = 88298-7] Goal Plan of Care Note [code = 51302-9] Goal Plan of Care Note [code = 63220-0] Goal Plan of Care Note [code = 49635-8] Goal Plan of Care Note [code = 42072-6] Goal Plan of Care Note [code = 92152-6] Goal Plan of Care Note [code = 17446-2] Goal Plan of Care Note [code = 36465-9] Goal Plan of Care Note [code = 22891-9] Goal Plan of Care Note [code = 08340-5] Goal Plan of Care Note [code = 22943-6] Goal Plan of Care Note [code = 48714-7] Goal Plan of Care Note [code = 02292-3] Goal Plan of Care Note [code = 40359-5] Goal Plan of Care Note [code = 59700-0] Goal Plan of Care Note [code = 38600-9] Goal Plan of Care Note [code = 29203-3] Goal Plan of Care Note [code = 32131-0] Goal Plan of Care Note [code = 50882-7] Goal Plan of Care Note [code = 51376-9] Goal Plan of Care Note [code = 17796-3] Goal Plan of Care Note [code = 26236-7] Goal Plan of Care Note [code = 37987-0] Goal Plan of Care Note [code = 11720-1] Goal Plan of Care Note [code = 91270-0] Goal Plan of Care Note [code = 27799-7] Goal Plan of Care Note [code = 29486-3] Goal Plan of Care Note [code = 29960-2] Goal Plan of Care Note [code = 54165-9] Goal Plan of Care Note [code = 68684-3] Goal Plan of Care Note [code = 66461-0] Goal Plan of Care Note [code = 71250-2] Goal Plan of Care Note [code = 21971-7] Goal Plan of Care Note [code = 98709-3] Goal Plan of Care Note [code = 83553-9] Goal Plan of Care Note [code = 49769-5] Goal Plan of Care Note [code = 50822-1] Goal Plan of Care Note [code = 59394-3] Goal Plan of Care Note [code = 52977-7] Goal Plan of Care Note [code = 95537-2] Goal Plan of Care Note [code = 12109-4] Goal Plan of Care Note [code = 76493-2] Goal Plan of Care Note [code = 66148-5] Goal Plan of Care Note [code = 69902-1] Goal Plan of Care Note [code = 99789-9] Goal Plan of Care Note [code = 44970-0] Goal Plan of Care Note [code = 57485-1] Goal Plan of Care Note [code = 17250-7] Goal Plan of Care Note [code = 96643-3] Goal Plan of Care Note [code = 91900-5] Goal Plan of Care Note [code = 34835-3] Goal Plan of Care Note [code = 94911-3] Goal Plan of Care Note [code = 72595-1] Goal Plan of Care Note [code = 74152-1] Goal Plan of Care Note [code = 95509-7] Goal Plan of Care Note [code = 80742-4] Encounters Start End Encounter Admission Attending Care Care Encounter Source Date/Time Date/Time Type Type Clinicians Facility Department ID 2021-04-[address] [facility] [id number] Common 13:58:37 [facility] [id number] [facility] 2021-12-17 2021-12-17 Outpatient ERASTO MAURER [id number] Isaac 16:34:46 16:34:46 Emily Diehl 2021-12-17 2021-12-17 Outpatient [id number] 52jr60-p 00:00:00 00:00:00 Visit b67k-0h27 97a-4f42-b -z2tx-6i0 3ce-6n897k [id number] 298078 7315-09-22 2021-12-06 Outpatient [id number]- [id number] c4 c48e3i-j 00:00:00 00:00:00 Visit bdee-41ae andrea-41ae-8 -1h44-l11 r88-q12331 921ekk4f7 aaa3b2 2021-12-05 2021-12-05 Outpatient [id number]- [id number] awm676-n 00:00:00 00:00:00 Visit bt81-5p1b q21-2o1b-3 -9h13-d81 n74-p052vo 8ad9300ov 6843af 2021-11-01 2021-11-01 Outpatient [id number]- [id number] gzb827-j 00:00:00 00:00:00 Visit xc5p-67jh b7t-53td-l -w877-930 987-6300fe 8nc1h2oj7 0f1bf9 2021-10-15 2021-10-15 Outpatient [id number]- [id number] 08hv52-0 00:00:00 00:00:00 Visit 6ox1-5it9 bb0-4dd5-9 -7p47-nwi i33-wzq043 4771o7928 9a6748 2021-10-03 2021-10-03 Outpatient [id number]- [id number] c8 g427w6-b 00:00:00 00:00:00 Visit y000-7k90 305-4a27-8 -881a-0d5 81a-0d5a19 b06468z94 738d81 2021-09-19 2021-09-19 Outpatient [id number] f8 [id number] 00:00:00 00:00:00 Visit 3en6-71d9 cf6-49e8-a -z92u-w2h 91e-n4n416 9370707ku 6881ef 2021-09-13 2021-09-13 Outpatient [id number]- [id number] t5193n-0 00:00:00 00:00:00 Visit 6920-4a4d 920-4a4d-a -n57f-500 98e-498540 52374s92m 61e27a Results Test Description Test Time Test Comments Results Result Comments Source CBC W/AUTO DIFF WITH PLATELETS 2021-12-06 15:05:17 Test Item Value Reference Range Interpretation Comme nts WBC (test code = 1001) 8.2 K/UL 3.5-11.0 RBC (test code = 1002) 4.96 M/UL 4.50-6.10 HEMOGLOBIN (test code = 15.6 G/DL 13.5-17.0 1003) HEMATOCRIT (test code = 47.8 % 40.0-51.0 1004) MCV (test code = 1005) 96.4 fL 80.0-99.0 MCH (test code = 1006) 31.5 PG 25.0-33.0 MCHC (test code = 1007) 32.6 G/DL 31.0-36.0 RDW (test code = 1038) 14.4 % 11.5-15.0 NEUTROPHILS (test code = 69.8 % AU TOMATED DIFFERENTIAL 1008) CONFIRMED WITH MANUAL SLIDE REVIEW. LYMPHOCYTES (test code = 18.6 % 1010) MONOCYTES (test code = 1011) 8.0 % EOSINOPHILS (test code = 1.1 % 1012) BASOPHILS (test code = 1013) 1.2 % IMMATURE GRANULOCYTES (test 1.3 % code = 1036) NUCLEATED RBCS (test code = 0.0 /100 WBC'S See_Comment [Automated message] The 1065) system which ge nerated this result transmit milton reference range: 0.0. The reference range was not u sed to interpret this result as normal/abnormal . PLATELET COUNT (test code = 108 K/UL 130-400 L 1015) ABSOLUTE NEUTROPHILS (test 5.70 K/UL 1.50-7.50 code = 1066) ABSOLUTE LYMPHOCYTES (test 1.52 K/UL 1.00-4.00 code = 1067) ABSOLUTE MONOCYTES (test 0.65 K/UL 0.20-1.00 code = 1068) ABSOLUTE EOSINOPHILS (test 0.09 K/UL 0.00-0.50 code = 1040) ABSOLUTE BASOPHILS (test 0.10 K/UL 0.00-0.20 code = 1069) ABS IMMATURE GRANULOCYTES 0.11 K/UL 0.00-0.10 H (test code = 1020) ABS NUCLEATED RBCS (test 0.00 K/UL 0.00-0.11 code = 07473) COMMENTS (test code = 1016) (NOTE) NO SPECIFIC RBC ABNORMALITIES I DENTIFIED PLATELETS APPEA R DECREASED SEE ADDITIONAL COMMENTS BELOW: MODERATE PLATELET CLUMPS UNLABELLED [id number] 06:01:23 Test Item Value Reference Range Interpretation Comments NOTE: (test code = SPECIMEN RECEIVED WITHOUT 14183) PATIENT'S NAME. UNLESS OTHERWISE INDIC ATED, ALL TESTING PERFORM ED ATCLINICAL PATHOLOGY [employer] [address] [place] [address] LABORATOR Y DIRECTOR: SHAMAR VILLAVICENCIO M.D. CLIA NUMBER [id number] CAP ACCREDITATION N O. [id number] CBC W/AUTO [id number] 00:00:00 Test Item Value Reference Range Interpretation Comments WBC (test code = 1001) 8.2 K/UL RBC (test code = 1002) 4.96 M/UL HEMOGLOBIN (test code = 1003) 15.6 G/DL HEMATOCRIT (test code = 1004) 47.8 % MCV (test code = 1005) 96.4 fL MCH (test code = 1006) 31.5 PG MCHC (test code = 1007) 32.6 G/DL RDW (test code = 1038) 14.4 % NEUTROPHILS (test code = 1008) 69.8 % LYMPHOCYTES (test code = 1010) 18.6 % MONOCYTES (test code = 1011) 8.0 % EOSINOPHILS (test code = 1012) 1.1 % BASOPHILS (test code = 1013) 1.2 % IMMATURE GRANULOCYTES (test 1.3 % code = 1036) NUCLEATED RBCS (test code = 0.0 /100WBC'S 1065) PLATELET COUNT (test code = 108 K/UL 1015) ABSOLUTE NEUTROPHILS (test code 5.70 K/UL = 1066) ABSOLUTE LYMPHOCYTES (test code 1.52 K/UL = 1067) ABSOLUTE MONOCYTES (test code = 0.65 K/UL 1068) ABSOLUTE EOSINOPHILS (test code 0.09 K/UL = 1040) ABSOLUTE BASOPHILS (test code = 0.10 K/UL 1069) ABS IMMATURE GRANULOCYTES (test 0.11 K/UL code = 1020) ABS NUCLEATED RBCS (test code = 0.00 K/UL 27907) COMMENTS (test code = 1016) (NOTE) CBC W/AUTO [id number] 00:00:00 Test Item Value Reference Range Interpretation Comments WBC (test code = 1001) 8.2 K/UL RBC (test code = 1002) 4.96 M/UL HEMOGLOBIN (test code = 1003) 15.6 G/DL HEMATOCRIT (test code = 1004) 47.8 % MCV (test code = 1005) 96.4 fL MCH (test code = 1006) 31.5 PG MCHC (test code = 1007) 32.6 G/DL RDW (test code = 1038) 14.4 % NEUTROPHILS (test code = 1008) 69.8 % LYMPHOCYTES (test code = 1010) 18.6 % MONOCYTES (test code = 1011) 8.0 % EOSINOPHILS (test code = 1012) 1.1 % BASOPHILS (test code = 1013) 1.2 % IMMATURE GRANULOCYTES (test 1.3 % code = 1036) NUCLEATED RBCS (test code = 0.0 /100WBC'S 1065) PLATELET COUNT (test code = 108 K/UL 1015) ABSOLUTE NEUTROPHILS (test code 5.70 K/UL = 1066) ABSOLUTE LYMPHOCYTES (test code 1.52 K/UL = 1067) ABSOLUTE MONOCYTES (test code = 0.65 K/UL 1068) ABSOLUTE EOSINOPHILS (test code 0.09 K/UL = 1040) ABSOLUTE BASOPHILS (test code = 0.10 K/UL 1069) ABS IMMATURE GRANULOCYTES (test 0.11 K/UL code = 1020) ABS NUCLEATED RBCS (test code = 0.00 K/UL 03133) COMMENTS (test code = 1016) (NOTE) CBC W/AUTO [id number] 00:00:00 Test Item Value Reference Range Interpretation Comments WBC (test code = 1001) 8.2 K/UL RBC (test code = 1002) 4.96 M/UL HEMOGLOBIN (test code = 1003) 15.6 G/DL HEMATOCRIT (test code = 1004) 47.8 % MCV (test code = 1005) 96.4 fL MCH (test code = 1006) 31.5 PG MCHC (test code = 1007) 32.6 G/DL RDW (test code = 1038) 14.4 % NEUTROPHILS (test code = 1008) 69.8 % LYMPHOCYTES (test code = 1010) 18.6 % MONOCYTES (test code = 1011) 8.0 % EOSINOPHILS (test code = 1012) 1.1 % BASOPHILS (test code = 1013) 1.2 % IMMATURE GRANULOCYTES (test 1.3 % code = 1036) NUCLEATED RBCS (test code = 0.0 /100WBC'S 1065) PLATELET COUNT (test code = 108 K/UL 1015) ABSOLUTE NEUTROPHILS (test code 5.70 K/UL = 1066) ABSOLUTE LYMPHOCYTES (test code 1.52 K/UL = 1067) ABSOLUTE MONOCYTES (test code = 0.65 K/UL 1068) ABSOLUTE EOSINOPHILS (test code 0.09 K/UL = 1040) ABSOLUTE BASOPHILS (test code = 0.10 K/UL 1069) ABS IMMATURE GRANULOCYTES (test 0.11 K/UL code = 1020) ABS NUCLEATED RBCS (test code = 0.00 K/UL 30849) COMMENTS (test code = 1016) (NOTE) UNLABELLED SPECIMEN [ADDED]2021-12-06 00:00:00 Test Item Value Reference Range Interpretation Comments NOTE: (test code = 67533) CBC W/AUTO [id number] 00:00:00 Test Item Value Reference Range Interpretation Comments WBC (test code = 1001) 8.2 K/UL RBC (test code = 1002) 4.96 M/UL HEMOGLOBIN (test code = 1003) 15.6 G/DL HEMATOCRIT (test code = 1004) 47.8 % MCV (test code = 1005) 96.4 fL MCH (test code = 1006) 31.5 PG MCHC (test code = 1007) 32.6 G/DL RDW (test code = 1038) 14.4 % NEUTROPHILS (test code = 1008) 69.8 % LYMPHOCYTES (test code = 1010) 18.6 % MONOCYTES (test code = 1011) 8.0 % EOSINOPHILS (test code = 1012) 1.1 % BASOPHILS (test code = 1013) 1.2 % IMMATURE GRANULOCYTES (test 1.3 % code = 1036) NUCLEATED RBCS (test code = 0.0 /100WBC'S 1065) PLATELET COUNT (test code = 108 K/UL 1015) ABSOLUTE NEUTROPHILS (test code 5.70 K/UL = 1066) ABSOLUTE LYMPHOCYTES (test code 1.52 K/UL = 1067) ABSOLUTE MONOCYTES (test code = 0.65 K/UL 1068) ABSOLUTE EOSINOPHILS (test code 0.09 K/UL = 1040) ABSOLUTE BASOPHILS (test code = 0.10 K/UL 1069) ABS IMMATURE GRANULOCYTES (test 0.11 K/UL code = 1020) ABS NUCLEATED RBCS (test code = 0.00 K/UL 46217) COMMENTS (test code = 1016) (NOTE) CBC W/AUTO [id number] 00:00:00 Test Item Value Reference Range Interpretation Comments WBC (test code = 1001) 8.2 K/UL RBC (test code = 1002) 4.96 M/UL HEMOGLOBIN (test code = 1003) 15.6 G/DL HEMATOCRIT (test code = 1004) 47.8 % MCV (test code = 1005) 96.4 fL MCH (test code = 1006) 31.5 PG MCHC (test code = 1007) 32.6 G/DL RDW (test code = 1038) 14.4 % NEUTROPHILS (test code = 1008) 69.8 % LYMPHOCYTES (test code = 1010) 18.6 % MONOCYTES (test code = 1011) 8.0 % EOSINOPHILS (test code = 1012) 1.1 % BASOPHILS (test code = 1013) 1.2 % IMMATURE GRANULOCYTES (test 1.3 % code = 1036) NUCLEATED RBCS (test code = 0.0 /100WBC'S 1065) PLATELET COUNT (test code = 108 K/UL 1015) ABSOLUTE NEUTROPHILS (test code 5.70 K/UL = 1066) ABSOLUTE LYMPHOCYTES (test code 1.52 K/UL = 1067) ABSOLUTE MONOCYTES (test code = 0.65 K/UL 1068) ABSOLUTE EOSINOPHILS (test code 0.09 K/UL = 1040) ABSOLUTE BASOPHILS (test code = 0.10 K/UL 1069) ABS IMMATURE GRANULOCYTES (test 0.11 K/UL code = 1020) ABS NUCLEATED RBCS (test code = 0.00 K/UL 24174) COMMENTS (test code = 1016) (NOTE) CBC W/AUTO [id number] 00:00:00 Test Item Value Reference Range Interpretation Comments WBC (test code = 1001) 8.2 K/UL RBC (test code = 1002) 4.96 M/UL HEMOGLOBIN (test code = 1003) 15.6 G/DL HEMATOCRIT (test code = 1004) 47.8 % MCV (test code = 1005) 96.4 fL MCH (test code = 1006) 31.5 PG MCHC (test code = 1007) 32.6 G/DL RDW (test code = 1038) 14.4 % NEUTROPHILS (test code = 1008) 69.8 % LYMPHOCYTES (test code = 1010) 18.6 % MONOCYTES (test code = 1011) 8.0 % EOSINOPHILS (test code = 1012) 1.1 % BASOPHILS (test code = 1013) 1.2 % IMMATURE GRANULOCYTES (test 1.3 % code = 1036) NUCLEATED RBCS (test code = 0.0 /100WBC'S 1065) PLATELET COUNT (test code = 108 K/UL 1015) ABSOLUTE NEUTROPHILS (test code 5.70 K/UL = 1066) ABSOLUTE LYMPHOCYTES (test code 1.52 K/UL = 1067) ABSOLUTE MONOCYTES (test code = 0.65 K/UL 1068) ABSOLUTE EOSINOPHILS (test code 0.09 K/UL = 1040) ABSOLUTE BASOPHILS (test code = 0.10 K/UL 1069) ABS IMMATURE GRANULOCYTES (test 0.11 K/UL code = 1020) ABS NUCLEATED RBCS (test code = 0.00 K/UL 36273) COMMENTS (test code = 1016) (NOTE) UNLABELLED SPECIMEN [ADDED]2021-12-06 00:00:00 Test Item Value Reference Range Interpretation Comments NOTE: (test code = 32778) CBC W/AUTO [id number] 00:00:00 Test Item Value Reference Range Interpretation Comments WBC (test code = 1001) 8.2 K/UL RBC (test code = 1002) 4.96 M/UL HEMOGLOBIN (test code = 1003) 15.6 G/DL HEMATOCRIT (test code = 1004) 47.8 % MCV (test code = 1005) 96.4 fL MCH (test code = 1006) 31.5 PG MCHC (test code = 1007) 32.6 G/DL RDW (test code = 1038) 14.4 % NEUTROPHILS (test code = 1008) 69.8 % LYMPHOCYTES (test code = 1010) 18.6 % MONOCYTES (test code = 1011) 8.0 % EOSINOPHILS (test code = 1012) 1.1 % BASOPHILS (test code = 1013) 1.2 % IMMATURE GRANULOCYTES (test 1.3 % code = 1036) NUCLEATED RBCS (test code = 0.0 /100WBC'S 1065) PLATELET COUNT (test code = 108 K/UL 1015) ABSOLUTE NEUTROPHILS (test code 5.70 K/UL = 1066) ABSOLUTE LYMPHOCYTES (test code 1.52 K/UL = 1067) ABSOLUTE MONOCYTES (test code = 0.65 K/UL 1068) ABSOLUTE EOSINOPHILS (test code 0.09 K/UL = 1040) ABSOLUTE BASOPHILS (test code = 0.10 K/UL 1069) ABS IMMATURE GRANULOCYTES (test 0.11 K/UL code = 1020) ABS NUCLEATED RBCS (test code = 0.00 K/UL 55592) COMMENTS (test code = 1016) (NOTE) CBC W/AUTO [id number] 00:00:00 Test Item Value Reference Range Interpretation Comments WBC (test code = 1001) 8.2 K/UL RBC (test code = 1002) 4.96 M/UL HEMOGLOBIN (test code = 1003) 15.6 G/DL HEMATOCRIT (test code = 1004) 47.8 % MCV (test code = 1005) 96.4 fL MCH (test code = 1006) 31.5 PG MCHC (test code = 1007) 32.6 G/DL RDW (test code = 1038) 14.4 % NEUTROPHILS (test code = 1008) 69.8 % LYMPHOCYTES (test code = 1010) 18.6 % MONOCYTES (test code = 1011) 8.0 % EOSINOPHILS (test code = 1012) 1.1 % BASOPHILS (test code = 1013) 1.2 % IMMATURE GRANULOCYTES (test 1.3 % code = 1036) NUCLEATED RBCS (test code = 0.0 /100WBC'S 1065) PLATELET COUNT (test code = 108 K/UL 1015) ABSOLUTE NEUTROPHILS (test code 5.70 K/UL = 1066) ABSOLUTE LYMPHOCYTES (test code 1.52 K/UL = 1067) ABSOLUTE MONOCYTES (test code = 0.65 K/UL 1068) ABSOLUTE EOSINOPHILS (test code 0.09 K/UL = 1040) ABSOLUTE BASOPHILS (test code = 0.10 K/UL 1069) ABS IMMATURE GRANULOCYTES (test 0.11 K/UL code = 1020) ABS NUCLEATED RBCS (test code = 0.00 K/UL 75596) COMMENTS (test code = 1016) (NOTE) CBC W/AUTO [id number] 00:00:00 Test Item Value Reference Range Interpretation Comments WBC (test code = 1001) 8.2 K/UL RBC (test code = 1002) 4.96 M/UL HEMOGLOBIN (test code = 1003) 15.6 G/DL HEMATOCRIT (test code = 1004) 47.8 % MCV (test code = 1005) 96.4 fL MCH (test code = 1006) 31.5 PG MCHC (test code = 1007) 32.6 G/DL RDW (test code = 1038) 14.4 % NEUTROPHILS (test code = 1008) 69.8 % LYMPHOCYTES (test code = 1010) 18.6 % MONOCYTES (test code = 1011) 8.0 % EOSINOPHILS (test code = 1012) 1.1 % BASOPHILS (test code = 1013) 1.2 % IMMATURE GRANULOCYTES (test 1.3 % code = 1036) NUCLEATED RBCS (test code = 0.0 /100WBC'S 1065) PLATELET COUNT (test code = 108 K/UL 1015) ABSOLUTE NEUTROPHILS (test code 5.70 K/UL = 1066) ABSOLUTE LYMPHOCYTES (test code 1.52 K/UL = 1067) ABSOLUTE MONOCYTES (test code = 0.65 K/UL 1068) ABSOLUTE EOSINOPHILS (test code 0.09 K/UL = 1040) ABSOLUTE BASOPHILS (test code = 0.10 K/UL 1069) ABS IMMATURE GRANULOCYTES (test 0.11 K/UL code = 1020) ABS NUCLEATED RBCS (test code = 0.00 K/UL 01726) COMMENTS (test code = 1016) (NOTE) UNLABELLED SPECIMEN [ADDED]2021-12-06 00:00:00 Test Item Value Reference Range Interpretation Comments NOTE: (test code = 33364) CULTURE, [id number] 12:14:15SPECIMEN NUMBER: [id number] CULTURE, STOOL SPECIMEN NUMBER: [id number] SOURCE: STOOL REPORT STATUS: FINAL FINAL REPORT: 11/08/2021 NORMAL ENTERIC SEVERIANO RECOVERED. NO SALMONELLA, SHIGELLA, CAMPYLOBACTER, AEROMONAS OR PLESIOMONAS CULTURED. UNLESS OTHERWISE INDICATED, ALL TESTING PERFORMED [facility] [address] [place] [address] PROCESS MANUFACTURING ENGINEER: SHAMAR ENRIQUE M.D. CLIA NUMBER [id number] [facility] [place] [id number], [id number] 00:00:00 Test Item Value Reference Range Interpretation Comments CULTURE, STOOL (test SPECIMEN NUMBER: code = 46541) [id number] CULTURE, [id number] 00:00:00 Test Item Value Reference Range Interpretation Comments CULTURE, STOOL (test SPECIMEN NUMBER: code = 22394) [id number] CULTURE, [id number] 00:00:00 Test Item Value Reference Range Interpretation Comments CULTURE, STOOL (test SPECIMEN NUMBER: code = 73878) [id number] CULTURE, [id number] 00:00:00 Test Item Value Reference Range Interpretation Comments CULTURE, STOOL (test SPECIMEN NUMBER: code = 91600) [id number] CULTURE, [id number] 00:00:00 Test Item Value Reference Range Interpretation Comments CULTURE, STOOL (test SPECIMEN NUMBER: code = 32529) [id number] CULTURE, [id number] 00:00:00 Test Item Value Reference Range Interpretation Comments CULTURE, STOOL (test SPECIMEN NUMBER: code = 06584) [id number] HEMOGLOBIN [id number] 03:11:00 Test Item Value Reference Range Interpretation Comments HEMOGLOBIN A1c (test 9.5 % 4.2-5.6 H [employer]IC AN DIABETES code = 66138) ASSOCIATION [employer] FOR HGB A1C: PREDIABETES/INC REASED RISK . . . . . . . 5.7 -6.4% DIAGNOSIS OF DI ABETES . . . . . . . . . >=6 .5% WITH CONFIRMATION OR APPROPRIATE SYMPTOMS NOTE: ASSAY MAY BE AFFECTED BY HEMOGLOBINOPATH IES (SICKLE CELL ANEMIA, S- C DISEASE, OTHERS) OR ISHMAEL FICIALLY LOWERED BY DECR EASED RED CELL SURVIVAL ( HEMOLYTIC ANEMIAS, BLOOD LOSS, ETC.). CONSIDER ALTERN ATE TESTING OR LABORATORY C ONSULTATION. UNLESS OTHERWIS E INDICATED, ALL TESTING PER FORMED ATCLINICAL PATH [facility], I [place]. [address] [place] [address] [phone] LABORATORY DIRE CTOR: SHAMAR ENRIQUE M.D. CLIA NUMBER [id number] [facility] [place]. [id number] HEMOGLOBIN [id number] 00:00:00 Test Item Value Reference Range Interpretation Comments HEMOGLOBIN A1c (test code = 58140) 9.5 % HEMOGLOBIN [id number] 00:00:00 Test Item Value Reference Range Interpretation Comments HEMOGLOBIN A1c (test code = 82083) 9.5 % HEMOGLOBIN [id number] 00:00:00 Test Item Value Reference Range Interpretation Comments HEMOGLOBIN A1c (test code = 66518) 9.5 % HEMOGLOBIN [id number] 00:00:00 Test Item Value Reference Range Interpretation Comments HEMOGLOBIN A1c (test code = 32829) 9.5 % HEMOGLOBIN [id number] 00:00:00 Test Item Value Reference Range Interpretation Comments HEMOGLOBIN A1c (test code = 02175) 9.5 % HEMOGLOBIN [id number] 00:00:00 Test Item Value Reference Range Interpretation Comments HEMOGLOBIN A1c (test code = 33374) 9.5 % HEMOGLOBIN [id number] 00:00:00 Test Item Value Reference Range Interpretation Comments HEMOGLOBIN A1c (test code = 55160) 9.5 % HEMOGLOBIN [id number] 00:00:00 Test Item Value Reference Range Interpretation Comments HEMOGLOBIN A1c (test code = 83042) 9.5 % HEMOGLOBIN [id number] 00:00:00 Test Item Value Reference Range Interpretation Comments HEMOGLOBIN A1c (test code = 24687) 9.5 % CBC W/AUTO DIFF WITH [id number] 22:21:04 Test Item Value Reference Range Interpretation Comments WBC (test code = 13.2 K/UL 3.5-11.0 H 1001) RBC (test code = 4.94 M/UL 4.50-6.10 1002) HEMOGLOBIN (test 15.7 G/DL 13.5-17.0 code = 1003) HEMATOCRIT (test 48.8 % 40.0-51.0 code = 1004) MCV (test code = 98.8 fL 80.0-99.0 1005) MCH (test code = 31.8 PG 25.0-33.0 1006) MCHC (test code = 32.2 G/DL 31.0-36.0 1007) RDW (test code = 13.6 % 11.5-15.0 1038) NEUTROPHILS (test 84.7 % AUTOMATED code = 1008) DIFFERENTIAL CONFIRMED WITH MANUAL SLIDE REVIEW. LYMPHOCYTES (test 6.2 % code = 1010) MONOCYTES (test code 6.0 % = 1011) EOSINOPHILS (test 0.1 % code = 1012) BASOPHILS (test code 0.3 % = 1013) IMMATURE 2.7 % GRANULOCYTES (test code = 1036) NUCLEATED RBCS (test 0.0 /100 See_Comment [Autom ated message] code = 1065) WBC'S The system [employer] generated this result transmitted ref erence range: 0.0. The reference range was not used to int erpret this result as normal/abnormal . PLATELET COUNT (test 96 K/UL 130-400 L code = 1015) ABSOLUTE NEUTROPHILS 11.18 K/UL 1.50-7.50 H (test code = 1066) ABSOLUTE LYMPHOCYTES 0.82 K/UL 1.00-4.00 L (test code = 1067) ABSOLUTE MONOCYTES 0.79 K/UL 0.20-1.00 (test code = 1068) ABSOLUTE EOSINOPHILS 0.01 K/UL 0.00-0.50 (test code = 1040) ABSOLUTE BASOPHILS 0.04 K/UL 0.00-0.20 (test code = 1069) ABS IMMATURE 0.36 K/UL 0.00-0.10 H GRANULOCYTES (test code = 1020) ABS NUCLEATED RBCS 0.00 K/UL 0.00-0.11 (test code = 02989) COMMENTS (test code (NOTE) NO SPEC [facility] RBC = 1016) ABNORMALITIES IDENTIFIED SEE ADDITIONAL COMM ENTS BELOW: PLATELET CLUMPING PRESEN T; TRUE PLATELET C OUNT MAY BE HIGHER. IF CLINICALLY GERSON CATED, ORDER REPEAT PL ATELET COUNT WITH CITR ATE ANTICOAGULATED TUBE (CPL ORDER CODE 1047). COMPREHENSIVE METABOLIC [id number] 04:10:42 Test Item Value Reference Range Interpretation Comments GLUCOSE (test code = 318 MG/DL 70-99 H 2216) BUN (test code = 21 MG/DL 8-2207) CREATININE (test 0.75 MG/DL 0.80-1.40 L code = 2214) eGFR (2020 CKD-EPI) 103 >60 (test code = 44160) ML/MIN/1.73 CALC BUN/CREAT (test 28 RATIO 6-28 code = 2235) SODIUM (test code = 133 MEQ/L 378-214 0478) POTASSIUM (test code 4.3 MEQ/L 3.5-5.4 = 2227) CHLORIDE (test code 99 MEQ/L 95-107 = 221) CARBON DIOXIDE (test 20 MEQ/L 19-31 code = 220) CALCIUM (test code = 8.9 MG/DL 8.5-10.5 2208) PROTEIN, TOTAL (test 6.8 G/DL 6.1-8.3 code = 222) ALBUMIN (test code = 4.1 G/DL 3.5-5.2 2200) CALC GLOBULIN (test 2.7 G/DL 1.9-3.7 code = 224) CALC A/G RATIO (test 1.5 RATIO 1.0-2.6 code = 223) BILIRUBIN, TOTAL 0.4 MG/DL See_Comment [Automated message] (test code = 220) The syste m which generated this result transmit [place] reference range : <=1.2. The refe rence range was not u sed to interpret th is result as normal/abnormal . ALKALINE PHOSPHATASE 62 U/L 40-123 (test code = 2203) AST (test code = 16 U/L 9-50 2217) ALT (test code = 25 U/L 5-50 2218) LIPID [id number] 04:10:42 Test Item Value Reference Range Interpretation Comments CHOLESTEROL (test 153 MG/DL <200 code = 2210) TRIGLYCERIDES (test 114 MG/DL <150 code = 2232) HDL CHOLESTEROL (test 63 MG/DL >39 code = 2220) CALC LDL CHOL (test 70 MG/DL <100 NOTE: C ALCULATED LDL code = 2237) IS BASED ON LEONOR-JAUREGUI METHOD WHICHINCLUDES ADJUSTABLE TRIGLYCERIDE:VL DL CHOLESTEROL RAT IO.THIS FACTOR VARIES B Y MEASURED TRIGLY CERIDE AND NON-HDLCHOL ESTEROL CONCENTRATIONS WITH INCREASED CALCU LATED LDL SEENIN HIGH ER TRIGLYCERIDE OR LOWER NON-HDL SPECIME NS. FOR MOREINFORMATION , SEE CLIENT ANNOUNCE MENT AT [email or web address] RISK RATIO LDL/HDL 1.11 RATIO <3.55 (test code = 2238) COMPREHENSIVE METABOLIC [id number] 00:00:00 Test Item Value Reference Range Interpretation Comments GLUCOSE (test code = 2217) 318 MG/DL BUN (test code = 2208) 21 MG/DL CREATININE (test code = 2214) 0.75 MG/DL eGFR (2020 CKD-EPI) (test 103 ML/MIN/1.73 code = 69688) CALC BUN/CREAT (test code = 28 RATIO 2235) SODIUM (test code = 2231) 133 MEQ/L POTASSIUM (test code = 2228) 4.3 MEQ/L CHLORIDE (test code = 2215) 99 MEQ/L CARBON DIOXIDE (test code = 20 MEQ/L 220) CALCIUM (test code = 2209) 8.9 MG/DL PROTEIN, TOTAL (test code = 6.8 G/DL 2228) ALBUMIN (test code = 2201) 4.1 G/DL CALC GLOBULIN (test code = 2.7 G/DL 2240) CALC A/G RATIO (test code = 1.5 RATIO 2234) BILIRUBIN, TOTAL (test code = 0.4 MG/DL 2206) ALKALINE PHOSPHATASE (test 62 U/L code = 2204) AST (test code = 2218) 16 U/L ALT (test code = 2219) 25 U/L COMPREHENSIVE METABOLIC [id number] 00:00:00 Test Item Value Reference Range Interpretation Comments GLUCOSE (test code = 2217) 318 MG/DL BUN (test code = 2208) 21 MG/DL CREATININE (test code = 2214) 0.75 MG/DL eGFR (2020 CKD-EPI) (test 103 ML/MIN/1.73 code = 76981) CALC BUN/CREAT (test code = 28 RATIO 2235) SODIUM (test code = 2231) 133 MEQ/L POTASSIUM (test code = 2228) 4.3 MEQ/L CHLORIDE (test code = 2215) 99 MEQ/L CARBON DIOXIDE (test code = 20 MEQ/L 220) CALCIUM (test code = 2209) 8.9 MG/DL PROTEIN, TOTAL (test code = 6.8 G/DL 2228) ALBUMIN (test code = 2201) 4.1 G/DL CALC GLOBULIN (test code = 2.7 G/DL 2240) CALC A/G RATIO (test code = 1.5 RATIO 2234) BILIRUBIN, TOTAL (test code = 0.4 MG/DL 2206) ALKALINE PHOSPHATASE (test 62 U/L code = 2204) AST (test code = 2218) 16 U/L ALT (test code = 2219) 25 U/L LIPID [id number] 00:00:00 Test Item Value Reference Range Interpretation Comments CHOLESTEROL (test code = 2210) 153 MG/DL TRIGLYCERIDES (test code = 2232) 114 MG/DL HDL CHOLESTEROL (test code = 2220) 63 MG/DL CALC LDL CHOL (test code = 2237) 70 MG/DL RISK RATIO LDL/HDL (test code = 1.11 RATIO 2238) LIPID [id number] 00:00:00 Test Item Value Reference Range Interpretation Comments CHOLESTEROL (test code = 2210) 153 MG/DL TRIGLYCERIDES (test code = 2232) 114 MG/DL HDL CHOLESTEROL (test code = 2220) 63 MG/DL CALC LDL CHOL (test code = 2237) 70 MG/DL RISK RATIO LDL/HDL (test code = 1.11 RATIO 2238) CBC W/AUTO [id number] 00:00:00 Test Item Value Reference Range Interpretation Comments WBC (test code = 1001) 13.2 K/UL RBC (test code = 1002) 4.94 M/UL HEMOGLOBIN (test code = 1003) 15.7 G/DL HEMATOCRIT (test code = 1004) 48.8 % MCV (test code = 1005) 98.8 fL MCH (test code = 1006) 31.8 PG MCHC (test code = 1007) 32.2 G/DL RDW (test code = 1038) 13.6 % NEUTROPHILS (test code = 1008) 84.7 % LYMPHOCYTES (test code = 1010) 6.2 % MONOCYTES (test code = 1011) 6.0 % EOSINOPHILS (test code = 1012) 0.1 % BASOPHILS (test code = 1013) 0.3 % IMMATURE GRANULOCYTES (test 2.7 % code = 1036) NUCLEATED RBCS (test code = 0.0 /100WBC'S 1065) PLATELET COUNT (test code = 96 K/UL 1015) ABSOLUTE NEUTROPHILS (test code 11.18 K/UL = 1066) ABSOLUTE LYMPHOCYTES (test code 0.82 K/UL = 1067) ABSOLUTE MONOCYTES (test code = 0.79 K/UL 1068) ABSOLUTE EOSINOPHILS (test code 0.01 K/UL = 1040) ABSOLUTE BASOPHILS (test code = 0.04 K/UL 1069) ABS IMMATURE GRANULOCYTES (test 0.36 K/UL code = 1020) ABS NUCLEATED RBCS (test code = 0.00 K/UL 53900) COMMENTS (test code = 1016) (NOTE) CBC W/AUTO [id number] 00:00:00 Test Item Value Reference Range Interpretation Comments WBC (test code = 1001) 13.2 K/UL RBC (test code = 1002) 4.94 M/UL HEMOGLOBIN (test code = 1003) 15.7 G/DL HEMATOCRIT (test code = 1004) 48.8 % MCV (test code = 1005) 98.8 fL MCH (test code = 1006) 31.8 PG MCHC (test code = 1007) 32.2 G/DL RDW (test code = 1038) 13.6 % NEUTROPHILS (test code = 1008) 84.7 % LYMPHOCYTES (test code = 1010) 6.2 % MONOCYTES (test code = 1011) 6.0 % EOSINOPHILS (test code = 1012) 0.1 % BASOPHILS (test code = 1013) 0.3 % IMMATURE GRANULOCYTES (test 2.7 % code = 1036) NUCLEATED RBCS (test code = 0.0 /100WBC'S 1065) PLATELET COUNT (test code = 96 K/UL 1015) ABSOLUTE NEUTROPHILS (test code 11.18 K/UL = 1066) ABSOLUTE LYMPHOCYTES (test code 0.82 K/UL = 1067) ABSOLUTE MONOCYTES (test code = 0.79 K/UL 1068) ABSOLUTE EOSINOPHILS (test code 0.01 K/UL = 1040) ABSOLUTE BASOPHILS (test code = 0.04 K/UL 1069) ABS IMMATURE GRANULOCYTES (test 0.36 K/UL code = 1020) ABS NUCLEATED RBCS (test code = 0.00 K/UL 24953) COMMENTS (test code = 1016) (NOTE) CBC W/AUTO [id number] 00:00:00 Test Item Value Reference Range Interpretation Comments WBC (test code = 1001) 13.2 K/UL RBC (test code = 1002) 4.94 M/UL HEMOGLOBIN (test code = 1003) 15.7 G/DL HEMATOCRIT (test code = 1004) 48.8 % MCV (test code = 1005) 98.8 fL MCH (test code = 1006) 31.8 PG MCHC (test code = 1007) 32.2 G/DL RDW (test code = 1038) 13.6 % NEUTROPHILS (test code = 1008) 84.7 % LYMPHOCYTES (test code = 1010) 6.2 % MONOCYTES (test code = 1011) 6.0 % EOSINOPHILS (test code = 1012) 0.1 % BASOPHILS (test code = 1013) 0.3 % IMMATURE GRANULOCYTES (test 2.7 % code = 1036) NUCLEATED RBCS (test code = 0.0 /100WBC'S 1065) PLATELET COUNT (test code = 96 K/UL 1015) ABSOLUTE NEUTROPHILS (test code 11.18 K/UL = 1066) ABSOLUTE LYMPHOCYTES (test code 0.82 K/UL = 1067) ABSOLUTE MONOCYTES (test code = 0.79 K/UL 1068) ABSOLUTE EOSINOPHILS (test code 0.01 K/UL = 1040) ABSOLUTE BASOPHILS (test code = 0.04 K/UL 1069) ABS IMMATURE GRANULOCYTES (test 0.36 K/UL code = 1020) ABS NUCLEATED RBCS (test code = 0.00 K/UL 30520) COMMENTS (test code = 1016) (NOTE) COMPREHENSIVE METABOLIC [id number] 00:00:00 Test Item Value Reference Range Interpretation Comments GLUCOSE (test code = 2217) 318 MG/DL BUN (test code = 2208) 21 MG/DL CREATININE (test code = 2214) 0.75 MG/DL eGFR (2020 CKD-EPI) (test 103 ML/MIN/1.73 code = 29118) CALC BUN/CREAT (test code = 28 RATIO 223) SODIUM (test code = 2231) 133 MEQ/L POTASSIUM (test code = 2228) 4.3 MEQ/L CHLORIDE (test code = 2215) 99 MEQ/L CARBON DIOXIDE (test code = 20 MEQ/L 2205) CALCIUM (test code = 2209) 8.9 MG/DL PROTEIN, TOTAL (test code = 6.8 G/DL 2228) ALBUMIN (test code = 2201) 4.1 G/DL CALC GLOBULIN (test code = 2.7 G/DL 2239) CALC A/G RATIO (test code = 1.5 RATIO 2233) BILIRUBIN, TOTAL (test code = 0.4 MG/DL 2207) ALKALINE PHOSPHATASE (test 62 U/L code = 2204) AST (test code = 2218) 16 U/L ALT (test code = 2219) 25 U/L COMPREHENSIVE METABOLIC [id number] 00:00:00 Test Item Value Reference Range Interpretation Comments GLUCOSE (test code = 2217) 318 MG/DL BUN (test code = 2208) 21 MG/DL CREATININE (test code = 2214) 0.75 MG/DL eGFR (2020 CKD-EPI) (test 103 ML/MIN/1.73 code = 20411) CALC BUN/CREAT (test code = 28 RATIO 2235) SODIUM (test code = 2231) 133 MEQ/L POTASSIUM (test code = 2228) 4.3 MEQ/L CHLORIDE (test code = 2215) 99 MEQ/L CARBON DIOXIDE (test code = 20 MEQ/L 2205) CALCIUM (test code = 2209) 8.9 MG/DL PROTEIN, TOTAL (test code = 6.8 G/DL 2228) ALBUMIN (test code = 2201) 4.1 G/DL CALC GLOBULIN (test code = 2.7 G/DL 2239) CALC A/G RATIO (test code = 1.5 RATIO 2234) BILIRUBIN, TOTAL (test code = 0.4 MG/DL 2206) ALKALINE PHOSPHATASE (test 62 U/L code = 2204) AST (test code = 2218) 16 U/L ALT (test code = 2219) 25 U/L LIPID [id number] 00:00:00 Test Item Value Reference Range Interpretation Comments CHOLESTEROL (test code = 2210) 153 MG/DL TRIGLYCERIDES (test code = 2232) 114 MG/DL HDL CHOLESTEROL (test code = 2220) 63 MG/DL CALC LDL CHOL (test code = 2237) 70 MG/DL RISK RATIO LDL/HDL (test code = 1.11 RATIO 2238) LIPID [id number] 00:00:00 Test Item Value Reference Range Interpretation Comments CHOLESTEROL (test code = 2210) 153 MG/DL TRIGLYCERIDES (test code = 2232) 114 MG/DL HDL CHOLESTEROL (test code = 2220) 63 MG/DL CALC LDL CHOL (test code = 2237) 70 MG/DL RISK RATIO LDL/HDL (test code = 1.11 RATIO 2238) CBC W/AUTO [id number] 00:00:00 Test Item Value Reference Range Interpretation Comments WBC (test code = 1001) 13.2 K/UL RBC (test code = 1002) 4.94 M/UL HEMOGLOBIN (test code = 1003) 15.7 G/DL HEMATOCRIT (test code = 1004) 48.8 % MCV (test code = 1005) 98.8 fL MCH (test code = 1006) 31.8 PG MCHC (test code = 1007) 32.2 G/DL RDW (test code = 1038) 13.6 % NEUTROPHILS (test code = 1008) 84.7 % LYMPHOCYTES (test code = 1010) 6.2 % MONOCYTES (test code = 1011) 6.0 % EOSINOPHILS (test code = 1012) 0.1 % BASOPHILS (test code = 1013) 0.3 % IMMATURE GRANULOCYTES (test 2.7 % code = 1036) NUCLEATED RBCS (test code = 0.0 /100WBC'S 1065) PLATELET COUNT (test code = 96 K/UL 1015) ABSOLUTE NEUTROPHILS (test code 11.18 K/UL = 1066) ABSOLUTE LYMPHOCYTES (test code 0.82 K/UL = 1067) ABSOLUTE MONOCYTES (test code = 0.79 K/UL 1068) ABSOLUTE EOSINOPHILS (test code 0.01 K/UL = 1040) ABSOLUTE BASOPHILS (test code = 0.04 K/UL 1069) ABS IMMATURE GRANULOCYTES (test 0.36 K/UL code = 1020) ABS NUCLEATED RBCS (test code = 0.00 K/UL 14049) COMMENTS (test code = 1016) (NOTE) CBC W/AUTO [id number] 00:00:00 Test Item Value Reference Range Interpretation Comments WBC (test code = 1001) 13.2 K/UL RBC (test code = 1002) 4.94 M/UL HEMOGLOBIN (test code = 1003) 15.7 G/DL HEMATOCRIT (test code = 1004) 48.8 % MCV (test code = 1005) 98.8 fL MCH (test code = 1006) 31.8 PG MCHC (test code = 1007) 32.2 G/DL RDW (test code = 1038) 13.6 % NEUTROPHILS (test code = 1008) 84.7 % LYMPHOCYTES (test code = 1010) 6.2 % MONOCYTES (test code = 1011) 6.0 % EOSINOPHILS (test code = 1012) 0.1 % BASOPHILS (test code = 1013) 0.3 % IMMATURE GRANULOCYTES (test 2.7 % code = 1036) NUCLEATED RBCS (test code = 0.0 /100WBC'S 1065) PLATELET COUNT (test code = 96 K/UL 1015) ABSOLUTE NEUTROPHILS (test code 11.18 K/UL = 1066) ABSOLUTE LYMPHOCYTES (test code 0.82 K/UL = 1067) ABSOLUTE MONOCYTES (test code = 0.79 K/UL 1068) ABSOLUTE EOSINOPHILS (test code 0.01 K/UL = 1040) ABSOLUTE BASOPHILS (test code = 0.04 K/UL 1069) ABS IMMATURE GRANULOCYTES (test 0.36 K/UL code = 1020) ABS NUCLEATED RBCS (test code = 0.00 K/UL 37740) COMMENTS (test code = 1016) (NOTE) CBC W/AUTO [id number] 00:00:00 Test Item Value Reference Range Interpretation Comments WBC (test code = 1001) 13.2 K/UL RBC (test code = 1002) 4.94 M/UL HEMOGLOBIN (test code = 1003) 15.7 G/DL HEMATOCRIT (test code = 1004) 48.8 % MCV (test code = 1005) 98.8 fL MCH (test code = 1006) 31.8 PG MCHC (test code = 1007) 32.2 G/DL RDW (test code = 1038) 13.6 % NEUTROPHILS (test code = 1008) 84.7 % LYMPHOCYTES (test code = 1010) 6.2 % MONOCYTES (test code = 1011) 6.0 % EOSINOPHILS (test code = 1012) 0.1 % BASOPHILS (test code = 1013) 0.3 % IMMATURE GRANULOCYTES (test 2.7 % code = 1036) NUCLEATED RBCS (test code = 0.0 /100WBC'S 1065) PLATELET COUNT (test code = 96 K/UL 1015) ABSOLUTE NEUTROPHILS (test code 11.18 K/UL = 1066) ABSOLUTE LYMPHOCYTES (test code 0.82 K/UL = 1067) ABSOLUTE MONOCYTES (test code = 0.79 K/UL 1068) ABSOLUTE EOSINOPHILS (test code 0.01 K/UL = 1040) ABSOLUTE BASOPHILS (test code = 0.04 K/UL 1069) ABS IMMATURE GRANULOCYTES (test 0.36 K/UL code = 1020) ABS NUCLEATED RBCS (test code = 0.00 K/UL 12627) COMMENTS (test code = 1016) (NOTE) COMPREHENSIVE METABOLIC [id number] 00:00:00 Test Item Value Reference Range Interpretation Comments GLUCOSE (test code = 2217) 318 MG/DL BUN (test code = 2208) 21 MG/DL CREATININE (test code = 2214) 0.75 MG/DL eGFR (2020 CKD-EPI) (test 103 ML/MIN/1.73 code = 53378) CALC BUN/CREAT (test code = 28 RATIO 2235) SODIUM (test code = 2231) 133 MEQ/L POTASSIUM (test code = 2228) 4.3 MEQ/L CHLORIDE (test code = 2215) 99 MEQ/L CARBON DIOXIDE (test code = 20 MEQ/L 2205) CALCIUM (test code = 2209) 8.9 MG/DL PROTEIN, TOTAL (test code = 6.8 G/DL 2228) ALBUMIN (test code = 2201) 4.1 G/DL CALC GLOBULIN (test code = 2.7 G/DL 2239) CALC A/G RATIO (test code = 1.5 RATIO 2233) BILIRUBIN, TOTAL (test code = 0.4 MG/DL 2206) ALKALINE PHOSPHATASE (test 62 U/L code = 2204) AST (test code = 2218) 16 U/L ALT (test code = 2219) 25 U/L COMPREHENSIVE METABOLIC [id number] 00:00:00 Test Item Value Reference Range Interpretation Comments GLUCOSE (test code = 2217) 318 MG/DL BUN (test code = 2208) 21 MG/DL CREATININE (test code = 2214) 0.75 MG/DL eGFR (2020 CKD-EPI) (test 103 ML/MIN/1.73 code = 12168) CALC BUN/CREAT (test code = 28 RATIO 2235) SODIUM (test code = 2231) 133 MEQ/L POTASSIUM (test code = 2228) 4.3 MEQ/L CHLORIDE (test code = 2215) 99 MEQ/L CARBON DIOXIDE (test code = 20 MEQ/L 220) CALCIUM (test code = 2209) 8.9 MG/DL PROTEIN, TOTAL (test code = 6.8 G/DL 2228) ALBUMIN (test code = 2201) 4.1 G/DL CALC GLOBULIN (test code = 2.7 G/DL 2239) CALC A/G RATIO (test code = 1.5 RATIO 2234) BILIRUBIN, TOTAL (test code = 0.4 MG/DL 2206) ALKALINE PHOSPHATASE (test 62 U/L code = 2204) AST (test code = 2218) 16 U/L ALT (test code = 2219) 25 U/L LIPID [id number] 00:00:00 Test Item Value Reference Range Interpretation Comments CHOLESTEROL (test code = 2210) 153 MG/DL TRIGLYCERIDES (test code = 2232) 114 MG/DL HDL CHOLESTEROL (test code = 2220) 63 MG/DL CALC LDL CHOL (test code = 2237) 70 MG/DL RISK RATIO LDL/HDL (test code = 1.11 RATIO 2238) LIPID [id number] 00:00:00 Test Item Value Reference Range Interpretation Comments CHOLESTEROL (test code = 2210) 153 MG/DL TRIGLYCERIDES (test code = 2232) 114 MG/DL HDL CHOLESTEROL (test code = 2220) 63 MG/DL CALC LDL CHOL (test code = 2237) 70 MG/DL RISK RATIO LDL/HDL (test code = 1.11 RATIO 2238) CBC W/AUTO [id number] 00:00:00 Test Item Value Reference Range Interpretation Comments WBC (test code = 1001) 13.2 K/UL RBC (test code = 1002) 4.94 M/UL HEMOGLOBIN (test code = 1003) 15.7 G/DL HEMATOCRIT (test code = 1004) 48.8 % MCV (test code = 1005) 98.8 fL MCH (test code = 1006) 31.8 PG MCHC (test code = 1007) 32.2 G/DL RDW (test code = 1038) 13.6 % NEUTROPHILS (test code = 1008) 84.7 % LYMPHOCYTES (test code = 1010) 6.2 % MONOCYTES (test code = 1011) 6.0 % EOSINOPHILS (test code = 1012) 0.1 % BASOPHILS (test code = 1013) 0.3 % IMMATURE GRANULOCYTES (test 2.7 % code = 1036) NUCLEATED RBCS (test code = 0.0 /100WBC'S 1065) PLATELET COUNT (test code = 96 K/UL 1015) ABSOLUTE NEUTROPHILS (test code 11.18 K/UL = 1066) ABSOLUTE LYMPHOCYTES (test code 0.82 K/UL = 1067) ABSOLUTE MONOCYTES (test code = 0.79 K/UL 1068) ABSOLUTE EOSINOPHILS (test code 0.01 K/UL = 1040) ABSOLUTE BASOPHILS (test code = 0.04 K/UL 1069) ABS IMMATURE GRANULOCYTES (test 0.36 K/UL code = 1020) ABS NUCLEATED RBCS (test code = 0.00 K/UL 43970) COMMENTS (test code = 1016) (NOTE) CBC W/AUTO [id number] 00:00:00 Test Item Value Reference Range Interpretation Comments WBC (test code = 1001) 13.2 K/UL RBC (test code = 1002) 4.94 M/UL HEMOGLOBIN (test code = 1003) 15.7 G/DL HEMATOCRIT (test code = 1004) 48.8 % MCV (test code = 1005) 98.8 fL MCH (test code = 1006) 31.8 PG MCHC (test code = 1007) 32.2 G/DL RDW (test code = 1038) 13.6 % NEUTROPHILS (test code = 1008) 84.7 % LYMPHOCYTES (test code = 1010) 6.2 % MONOCYTES (test code = 1011) 6.0 % EOSINOPHILS (test code = 1012) 0.1 % BASOPHILS (test code = 1013) 0.3 % IMMATURE GRANULOCYTES (test 2.7 % code = 1036) NUCLEATED RBCS (test code = 0.0 /100WBC'S 1065) PLATELET COUNT (test code = 96 K/UL 1015) ABSOLUTE NEUTROPHILS (test code 11.18 K/UL = 1066) ABSOLUTE LYMPHOCYTES (test code 0.82 K/UL = 1067) ABSOLUTE MONOCYTES (test code = 0.79 K/UL 1068) ABSOLUTE EOSINOPHILS (test code 0.01 K/UL = 1040) ABSOLUTE BASOPHILS (test code = 0.04 K/UL 1069) ABS IMMATURE GRANULOCYTES (test 0.36 K/UL code = 1020) ABS NUCLEATED RBCS (test code = 0.00 K/UL 48966) COMMENTS (test code = 1016) (NOTE) CBC W/AUTO [id number] 00:00:00 Test Item Value Reference Range Interpretation Comments WBC (test code = 1001) 13.2 K/UL RBC (test code = 1002) 4.94 M/UL HEMOGLOBIN (test code = 1003) 15.7 G/DL HEMATOCRIT (test code = 1004) 48.8 % MCV (test code = 1005) 98.8 fL MCH (test code = 1006) 31.8 PG MCHC (test code = 1007) 32.2 G/DL RDW (test code = 1038) 13.6 % NEUTROPHILS (test code = 1008) 84.7 % LYMPHOCYTES (test code = 1010) 6.2 % MONOCYTES (test code = 1011) 6.0 % EOSINOPHILS (test code = 1012) 0.1 % BASOPHILS (test code = 1013) 0.3 % IMMATURE GRANULOCYTES (test 2.7 % code = 1036) NUCLEATED RBCS (test code = 0.0 /100WBC'S 1065) PLATELET COUNT (test code = 96 K/UL 1015) ABSOLUTE NEUTROPHILS (test code 11.18 K/UL = 1066) ABSOLUTE LYMPHOCYTES (test code 0.82 K/UL = 1067) ABSOLUTE MONOCYTES (test code = 0.79 K/UL 1068) ABSOLUTE EOSINOPHILS (test code 0.01 K/UL = 1040) ABSOLUTE BASOPHILS (test code = 0.04 K/UL 1069) ABS IMMATURE GRANULOCYTES (test 0.36 K/UL code = 1020) ABS NUCLEATED RBCS (test code = 0.00 K/UL 32287) COMMENTS (test code = 1016) (NOTE) LIPID [id number] 06:14:57 Test Item Value Reference Range Interpretation Comments CHOLESTEROL (test 170 MG/DL <200 code = 2210) TRIGLYCERIDES (test 272 MG/DL <150 H code = 2232) HDL CHOLESTEROL (test 35 MG/DL >39 L code = 2220) CALC LDL CHOL (test 96 MG/DL <100 NOTE: C ALCULATED LDL code = 2237) IS BASED ON LEONOR-JAUREGUI METHOD WHICHINCLUDES ADJUSTABLE TRIGLYCERIDE:VL DL CHOLESTEROL RAT IO.THIS FACTOR VARIES B Y MEASURED TRIGLY CERIDE AND NON-HDLCHOL ESTEROL CONCENTRATIONS WITH INCREASED CALCU LATED LDL SEENIN HIGH ER TRIGLYCERIDE OR LOWER NON-HDL SPECIME NS. FOR MOREINFORMATION , SEE CLIENT ANNOUNCE MENT AT [email or web address] [email or web address] RATIO LDL/HDL 2.74 RATIO <3.55 (test code = 2238) COMPREHENSIVE METABOLIC [id number] 06:14:57 Test Item Value Reference Range Interpretation Comments GLUCOSE (test code = 262 MG/DL 70-99 H 2216) BUN (test code = 12 MG/DL 8-23 2207) CREATININE (test 0.76 MG/DL 0.80-1.40 L code = 221) eGFR (2020 CKD-EPI) 103 >60 (test code = 37934) ML/MIN/1.73 CALC BUN/CREAT (test 16 RATIO 6-28 code = 2235) SODIUM (test code = 138 MEQ/L 879-043 7293) POTASSIUM (test code 4.1 MEQ/L 3.5-5.4 = 2227) CHLORIDE (test code 102 MEQ/L 95-107 = 2214) CARBON DIOXIDE (test 21 MEQ/L 19-31 code = 2205) CALCIUM (test code = 9.3 MG/DL 8.5-10.5 2208) PROTEIN, TOTAL (test 7.5 G/DL 6.1-8.3 code = 2228) ALBUMIN (test code = 4.3 G/DL 3.5-5.2 2200) CALC GLOBULIN (test 3.2 G/DL 1.9-3.7 code = 2239) CALC A/G RATIO (test 1.3 RATIO 1.0-2.6 code = 223) BILIRUBIN, TOTAL 0.2 MG/DL See_Comment [Automated message] (test code = 220) The syste m which generated this result transmitted ref erence range: <=1.2. T he reference range was not used to int erpret this result as normal/abnormal . ALKALINE PHOSPHATASE 76 U/L 40-123 (test code = 2203) AST (test code = 20 U/L 9-50 2217) ALT (test code = 23 U/L 5-50 UNLESS OTH ERWISE 2218) INDICATED, ALL TESTING PERFORM [facility] [place] [place] [address] LABOR ATORY DIRECTOR: SHAMAR ENRIQUE M.D. CLIA NUMBER [id number] CAP ACCREDITATION N O. [id number] HEMOGLOBIN [id number] 05:27:45 Test Item Value Reference Range Interpretation Comments HEMOGLOBIN A1c (test 8.1 % 4.2-5.6 H [employer] AN DIABETES code = 36331) ASSOCIATION IDELINES FOR HGB A1C: PREDIABETES/INC REASED RISK . . . . . . . 5.7 -6.4% DIAGNOSIS OF DI ABETES . . . . . . . . . >=6 .5% WITH CONFIRMATION OR APPROPRIATE SYMPTOMS NOTE: ASSAY MAY BE AFFECTED BY HEMOGLOBINOPATH IES (SICKLE CELL ANEMIA, S- C DISEASE, OTHERS) OR ISHMAEL FICIALLY LOWERED BY DECR EASED RED CELL SURVIVAL ( HEMOLYTIC ANEMIAS, BLOOD LOSS, ETC.). CONSIDER ALTERN ATE TESTING OR LABORATORY C ONSULTATION. HEMOGLOBIN [id number] 00:00:00 Test Item Value Reference Range Interpretation Comments HEMOGLOBIN A1c (test code = 55349) 8.1 % HEMOGLOBIN [id number] 00:00:00 Test Item Value Reference Range Interpretation Comments HEMOGLOBIN A1c (test code = 79912) 8.1 % HEMOGLOBIN [id number] 00:00:00 Test Item Value Reference Range Interpretation Comments HEMOGLOBIN A1c (test code = 41301) 8.1 % LIPID [id number] 00:00:00 Test Item Value Reference Range Interpretation Comments CHOLESTEROL (test code = 2210) 170 MG/DL TRIGLYCERIDES (test code = 2232) 272 MG/DL HDL CHOLESTEROL (test code = 2220) 35 MG/DL CALC LDL CHOL (test code = 2237) 96 MG/DL RISK RATIO LDL/HDL (test code = 2.74 RATIO 2238) LIPID [id number] 00:00:00 Test Item Value Reference Range Interpretation Comments CHOLESTEROL (test code = 2210) 170 MG/DL TRIGLYCERIDES (test code = 2232) 272 MG/DL HDL CHOLESTEROL (test code = 2220) 35 MG/DL CALC LDL CHOL (test code = 2237) 96 MG/DL RISK RATIO LDL/HDL (test code = 2.74 RATIO 2238) COMPREHENSIVE METABOLIC [id number] 00:00:00 Test Item Value Reference Range Interpretation Comments GLUCOSE (test code = 2217) 262 MG/DL BUN (test code = 2208) 12 MG/DL CREATININE (test code = 2214) 0.76 MG/DL eGFR (2020 CKD-EPI) (test 103 ML/MIN/1.73 code = 75558) CALC BUN/CREAT (test code = 16 RATIO 2235) SODIUM (test code = 2231) 138 MEQ/L POTASSIUM (test code = 2228) 4.1 MEQ/L CHLORIDE (test code = 2215) 102 MEQ/L CARBON DIOXIDE (test code = 21 MEQ/L 220) CALCIUM (test code = 2209) 9.3 MG/DL PROTEIN, TOTAL (test code = 7.5 G/DL 2228) ALBUMIN (test code = 2201) 4.3 G/DL CALC GLOBULIN (test code = 3.2 G/DL 2240) CALC A/G RATIO (test code = 1.3 RATIO 2234) BILIRUBIN, TOTAL (test code = 0.2 MG/DL 2206) ALKALINE PHOSPHATASE (test 76 U/L code = 2204) AST (test code = 2218) 20 U/L ALT (test code = 2219) 23 U/L COMPREHENSIVE METABOLIC [id number] 00:00:00 Test Item Value Reference Range Interpretation Comments GLUCOSE (test code = 2217) 262 MG/DL BUN (test code = 2208) 12 MG/DL CREATININE (test code = 2214) 0.76 MG/DL eGFR (2020 CKD-EPI) (test 103 ML/MIN/1.73 code = 03802) CALC BUN/CREAT (test code = 16 RATIO 2235) SODIUM (test code = 2231) 138 MEQ/L POTASSIUM (test code = 2228) 4.1 MEQ/L CHLORIDE (test code = 2215) 102 MEQ/L CARBON DIOXIDE (test code = 21 MEQ/L 2205) CALCIUM (test code = 2209) 9.3 MG/DL PROTEIN, TOTAL (test code = 7.5 G/DL 2228) ALBUMIN (test code = 2201) 4.3 G/DL CALC GLOBULIN (test code = 3.2 G/DL 2240) CALC A/G RATIO (test code = 1.3 RATIO 2234) BILIRUBIN, TOTAL (test code = 0.2 MG/DL 2206) ALKALINE PHOSPHATASE (test 76 U/L code = 2204) AST (test code = 2218) 20 U/L ALT (test code = 2219) 23 U/L HEMOGLOBIN [id number] 00:00:00 Test Item Value Reference Range Interpretation Comments HEMOGLOBIN A1c (test code = 42025) 8.1 % HEMOGLOBIN [id number] 00:00:00 Test Item Value Reference Range Interpretation Comments HEMOGLOBIN A1c (test code = 99725) 8.1 % HEMOGLOBIN [id number] 00:00:00 Test Item Value Reference Range Interpretation Comments HEMOGLOBIN A1c (test code = 49356) 8.1 % LIPID [id number] 00:00:00 Test Item Value Reference Range Interpretation Comments CHOLESTEROL (test code = 2210) 170 MG/DL TRIGLYCERIDES (test code = 2232) 272 MG/DL HDL CHOLESTEROL (test code = 2220) 35 MG/DL CALC LDL CHOL (test code = 2237) 96 MG/DL RISK RATIO LDL/HDL (test code = 2.74 RATIO 2238) LIPID [id number] 00:00:00 Test Item Value Reference Range Interpretation Comments CHOLESTEROL (test code = 2210) 170 MG/DL TRIGLYCERIDES (test code = 2232) 272 MG/DL HDL CHOLESTEROL (test code = 2220) 35 MG/DL CALC LDL CHOL (test code = 2237) 96 MG/DL RISK RATIO LDL/HDL (test code = 2.74 RATIO 2238) COMPREHENSIVE METABOLIC [id number] 00:00:00 Test Item Value Reference Range Interpretation Comments GLUCOSE (test code = 2217) 262 MG/DL BUN (test code = 2208) 12 MG/DL CREATININE (test code = 2214) 0.76 MG/DL eGFR (2020 CKD-EPI) (test 103 ML/MIN/1.73 code = 72490) CALC BUN/CREAT (test code = 16 RATIO 2235) SODIUM (test code = 2231) 138 MEQ/L POTASSIUM (test code = 2228) 4.1 MEQ/L CHLORIDE (test code = 2215) 102 MEQ/L CARBON DIOXIDE (test code = 21 MEQ/L 2205) CALCIUM (test code = 2209) 9.3 MG/DL PROTEIN, TOTAL (test code = 7.5 G/DL 2228) ALBUMIN (test code = 2201) 4.3 G/DL CALC GLOBULIN (test code = 3.2 G/DL 2240) CALC A/G RATIO (test code = 1.3 RATIO 2234) BILIRUBIN, TOTAL (test code = 0.2 MG/DL 2206) ALKALINE PHOSPHATASE (test 76 U/L code = 2204) AST (test code = 2218) 20 U/L ALT (test code = 2219) 23 U/L COMPREHENSIVE METABOLIC [id number] 00:00:00 Test Item Value Reference Range Interpretation Comments GLUCOSE (test code = 2217) 262 MG/DL BUN (test code = 2208) 12 MG/DL CREATININE (test code = 2214) 0.76 MG/DL eGFR (2020 CKD-EPI) (test 103 ML/MIN/1.73 code = 32542) CALC BUN/CREAT (test code = 16 RATIO 5) SODIUM (test code = 2231) 138 MEQ/L POTASSIUM (test code = 2228) 4.1 MEQ/L CHLORIDE (test code = 2215) 102 MEQ/L CARBON DIOXIDE (test code = 21 MEQ/L 2205) CALCIUM (test code = 2209) 9.3 MG/DL PROTEIN, TOTAL (test code = 7.5 G/DL 2228) ALBUMIN (test code = 220) 4.3 G/DL CALC GLOBULIN (test code = 3.2 G/DL 2239) CALC A/G RATIO (test code = 1.3 RATIO 2233) BILIRUBIN, TOTAL (test code = 0.2 MG/DL 2206) ALKALINE PHOSPHATASE (test 76 U/L code = 2204) AST (test code = 2218) 20 U/L ALT (test code = 2219) 23 U/L HEMOGLOBIN [id number] 00:00:00 Test Item Value Reference Range Interpretation Comments HEMOGLOBIN A1c (test code = 63070) 8.1 % HEMOGLOBIN [id number] 00:00:00 Test Item Value Reference Range Interpretation Comments HEMOGLOBIN A1c (test code = 20443) 8.1 % LIPID [id number] 00:00:00 Test Item Value Reference Range Interpretation Comments CHOLESTEROL (test code = 2210) 170 MG/DL TRIGLYCERIDES (test code = 2232) 272 MG/DL HDL CHOLESTEROL (test code = 2220) 35 MG/DL CALC LDL CHOL (test code = 2237) 96 MG/DL RISK RATIO LDL/HDL (test code = 2.74 RATIO 8) HEMOGLOBIN [id number] 00:00:00 Test Item Value Reference Range Interpretation Comments HEMOGLOBIN A1c (test code = 30527) 8.1 % HEMOGLOBIN [id number] 00:00:00 Test Item Value Reference Range Interpretation Comments HEMOGLOBIN A1c (test code = 91255) 8.1 % HEMOGLOBIN [id number] 00:00:00 Test Item Value Reference Range Interpretation Comments HEMOGLOBIN A1c (test code = 29160) 8.1 % COMPREHENSIVE METABOLIC [id number] 00:00:00 Test Item Value Reference Range Interpretation Comments GLUCOSE (test code = 2217) 262 MG/DL BUN (test code = 2208) 12 MG/DL CREATININE (test code = 2214) 0.76 MG/DL eGFR (2020 CKD-EPI) (test 103 ML/MIN/1.73 code = 31098) CALC BUN/CREAT (test code = 16 RATIO 2235) SODIUM (test code = 2231) 138 MEQ/L POTASSIUM (test code = 2228) 4.1 MEQ/L CHLORIDE (test code = 2215) 102 MEQ/L CARBON DIOXIDE (test code = 21 MEQ/L 2205) CALCIUM (test code = 2209) 9.3 MG/DL PROTEIN, TOTAL (test code = 7.5 G/DL 2228) ALBUMIN (test code = 2201) 4.3 G/DL CALC GLOBULIN (test code = 3.2 G/DL 2239) CALC A/G RATIO (test code = 1.3 RATIO 4) BILIRUBIN, TOTAL (test code = 0.2 MG/DL 2206) ALKALINE PHOSPHATASE (test 76 U/L code = 2204) AST (test code = 2218) 20 U/L ALT (test code = 2219) 23 U/L LIPID [id number] 00:00:00 Test Item Value Reference Range Interpretation Comments CHOLESTEROL (test code = 2210) 170 MG/DL TRIGLYCERIDES (test code = 2232) 272 MG/DL HDL CHOLESTEROL (test code = 2220) 35 MG/DL CALC LDL CHOL (test code = 2237) 96 MG/DL RISK RATIO LDL/HDL (test code = 2.74 RATIO 2238) LIPID [id number] 00:00:00 Test Item Value Reference Range Interpretation Comments CHOLESTEROL (test code = 2210) 170 MG/DL TRIGLYCERIDES (test code = 2232) 272 MG/DL HDL CHOLESTEROL (test code = 2220) 35 MG/DL CALC LDL CHOL (test code = 2237) 96 MG/DL RISK RATIO LDL/HDL (test code = 2.74 RATIO 2238) COMPREHENSIVE METABOLIC [id number] 00:00:00 Test Item Value Reference Range Interpretation Comments GLUCOSE (test code = 2217) 262 MG/DL BUN (test code = 2208) 12 MG/DL CREATININE (test code = 2214) 0.76 MG/DL eGFR (2020 CKD-EPI) (test 103 ML/MIN/1.73 code = 13383) CALC BUN/CREAT (test code = 16 RATIO 2235) SODIUM (test code = 2231) 138 MEQ/L POTASSIUM (test code = 2228) 4.1 MEQ/L CHLORIDE (test code = 2215) 102 MEQ/L CARBON DIOXIDE (test code = 21 MEQ/L 2205) CALCIUM (test code = 2209) 9.3 MG/DL PROTEIN, TOTAL (test code = 7.5 G/DL 2228) ALBUMIN (test code = 2201) 4.3 G/DL CALC GLOBULIN (test code = 3.2 G/DL 224) CALC A/G RATIO (test code = 1.3 RATIO 2234) BILIRUBIN, TOTAL (test code = 0.2 MG/DL 2206) ALKALINE PHOSPHATASE (test 76 U/L code = 2204) AST (test code = 2218) 20 U/L ALT (test code = 2219) 23 U/L COMPREHENSIVE METABOLIC [id number] 00:00:00 Test Item Value Reference Range Interpretation Comments GLUCOSE (test code = 2217) 262 MG/DL BUN (test code = 2208) 12 MG/DL CREATININE (test code = 2214) 0.76 MG/DL eGFR (2020 CKD-EPI) (test 103 ML/MIN/1.73 code = 41690) CALC BUN/CREAT (test code = 16 RATIO 2235) SODIUM (test code = 2231) 138 MEQ/L POTASSIUM (test code = 2228) 4.1 MEQ/L CHLORIDE (test code = 2215) 102 MEQ/L CARBON DIOXIDE (test code = 21 MEQ/L 2205) CALCIUM (test code = 2209) 9.3 MG/DL PROTEIN, TOTAL (test code = 7.5 G/DL 2228) ALBUMIN (test code = 2201) 4.3 G/DL CALC GLOBULIN (test code = 3.2 G/DL 224) CALC A/G RATIO (test code = 1.3 RATIO 2234) BILIRUBIN, TOTAL (test code = 0.2 MG/DL 2206) ALKALINE PHOSPHATASE (test 76 U/L code = 2204) AST (test code = 2218) 20 U/L ALT (test code = 2219) 23 U/L HEMOGLOBIN [id number] 00:00:00 Test Item Value Reference Range Interpretation Comments HEMOGLOBIN A1c (test code = 72433) 8.1 % HEMOGLOBIN [id number] 00:00:00 Test Item Value Reference Range Interpretation Comments HEMOGLOBIN A1c (test code = 76214) 8.1 % HEMOGLOBIN [id number] 00:00:00 Test Item Value Reference Range Interpretation Comments HEMOGLOBIN A1c (test code = 88057) 8.1 % LIPID [id number] 00:00:00 Test Item Value Reference Range Interpretation Comments CHOLESTEROL (test code = 2210) 170 MG/DL TRIGLYCERIDES (test code = 2232) 272 MG/DL HDL CHOLESTEROL (test code = 2220) 35 MG/DL CALC LDL CHOL (test code = 2237) 96 MG/DL RISK RATIO LDL/HDL (test code = 2.74 RATIO 2238) LIPID [id number] 00:00:00 Test Item Value Reference Range Interpretation Comments CHOLESTEROL (test code = 2210) 170 MG/DL TRIGLYCERIDES (test code = 2232) 272 MG/DL HDL CHOLESTEROL (test code = 2220) 35 MG/DL CALC LDL CHOL (test code = 2237) 96 MG/DL RISK RATIO LDL/HDL (test code = 2.74 RATIO 2238) COMPREHENSIVE METABOLIC [id number] 00:00:00 Test Item Value Reference Range Interpretation Comments GLUCOSE (test code = 2217) 262 MG/DL BUN (test code = 2208) 12 MG/DL CREATININE (test code = 2214) 0.76 MG/DL eGFR (2020 CKD-EPI) (test 103 ML/MIN/1.73 code = 41981) CALC BUN/CREAT (test code = 16 RATIO 2235) SODIUM (test code = 2231) 138 MEQ/L POTASSIUM (test code = 2228) 4.1 MEQ/L CHLORIDE (test code = 2215) 102 MEQ/L CARBON DIOXIDE (test code = 21 MEQ/L 2205) CALCIUM (test code = 2209) 9.3 MG/DL PROTEIN, TOTAL (test code = 7.5 G/DL 2228) ALBUMIN (test code = 220) 4.3 G/DL CALC GLOBULIN (test code = 3.2 G/DL 2239) CALC A/G RATIO (test code = 1.3 RATIO 2234) BILIRUBIN, TOTAL (test code = 0.2 MG/DL 2206) ALKALINE PHOSPHATASE (test 76 U/L code = 2204) AST (test code = 2218) 20 U/L ALT (test code = 2219) 23 U/L COMPREHENSIVE METABOLIC [id number] 00:00:00 Test Item Value Reference Range Interpretation Comments GLUCOSE (test code = 2217) 262 MG/DL BUN (test code = 2208) 12 MG/DL CREATININE (test code = 2214) 0.76 MG/DL eGFR (2020 CKD-EPI) (test 103 ML/MIN/1.73 code = 60502) CALC BUN/CREAT (test code = 16 RATIO 2235) SODIUM (test code = 2231) 138 MEQ/L POTASSIUM (test code = 2228) 4.1 MEQ/L CHLORIDE (test code = 2215) 102 MEQ/L CARBON DIOXIDE (test code = 21 MEQ/L 2205) CALCIUM (test code = 2209) 9.3 MG/DL PROTEIN, TOTAL (test code = 7.5 G/DL 2228) ALBUMIN (test code = 2201) 4.3 G/DL CALC GLOBULIN (test code = 3.2 G/DL 2240) CALC A/G RATIO (test code = 1.3 RATIO 2234) BILIRUBIN, TOTAL (test code = 0.2 MG/DL 2206) ALKALINE PHOSPHATASE (test 76 U/L code = 2204) AST (test code = 2218) 20 U/L ALT (test code = 2219) 23 U/L HEMOGLOBIN [id number] 00:00:00 Test Item Value Reference Range Interpretation Comments HEMOGLOBIN A1c (test code = 21709) 8.1 % HEMOGLOBIN [id number] 00:00:00 Test Item Value Reference Range Interpretation Comments HEMOGLOBIN A1c (test code = 58653) 8.1 % LIPID [id number] 00:00:00 Test Item Value Reference Range Interpretation Comments CHOLESTEROL (test code = 2210) 170 MG/DL TRIGLYCERIDES (test code = 2232) 272 MG/DL HDL CHOLESTEROL (test code = 2220) 35 MG/DL CALC LDL CHOL (test code = 2237) 96 MG/DL RISK RATIO LDL/HDL (test code = 2.74 RATIO 2238) COMPREHENSIVE METABOLIC [id number] 00:00:00 Test Item Value Reference Range Interpretation Comments GLUCOSE (test code = 2217) 262 MG/DL BUN (test code = 2208) 12 MG/DL CREATININE (test code = 2214) 0.76 MG/DL eGFR (2020 CKD-EPI) (test 103 ML/MIN/1.73 code = 39927) CALC BUN/CREAT (test code = 16 RATIO 2235) SODIUM (test code = 2231) 138 MEQ/L POTASSIUM (test code = 2228) 4.1 MEQ/L CHLORIDE (test code = 2215) 102 MEQ/L CARBON DIOXIDE (test code = 21 MEQ/L 2205) CALCIUM (test code = 2209) 9.3 MG/DL PROTEIN, TOTAL (test code = 7.5 G/DL 2228) ALBUMIN (test code = 2201) 4.3 G/DL CALC GLOBULIN (test code = 3.2 G/DL 2239) CALC A/G RATIO (test code = 1.3 RATIO 2233) BILIRUBIN, TOTAL (test code = 0.2 MG/DL 2206) ALKALINE PHOSPHATASE (test 76 U/L code = 2204) AST (test code = 2218) 20 U/L ALT (test code = 2219) 23 U/L HEMOGLOBIN [id number] 00:00:00 Test Item Value Reference Range Interpretation Comments HEMOGLOBIN A1c (test code = 48942) 8.1 % HEMOGLOBIN [id number] 00:00:00 Test Item Value Reference Range Interpretation Comments HEMOGLOBIN A1c (test code = 13999) 8.1 % LIPID [id number] 00:00:00 Test Item Value Reference Range Interpretation Comments CHOLESTEROL (test code = 2210) 170 MG/DL TRIGLYCERIDES (test code = 2232) 272 MG/DL HDL CHOLESTEROL (test code = 2220) 35 MG/DL CALC LDL CHOL (test code = 2237) 96 MG/DL RISK RATIO LDL/HDL (test code = 2.74 RATIO 2238) COMPREHENSIVE METABOLIC [id number] 00:00:00 Test Item Value Reference Range Interpretation Comments GLUCOSE (test code = 2217) 262 MG/DL BUN (test code = 2208) 12 MG/DL CREATININE (test code = 2214) 0.76 MG/DL eGFR (2020 CKD-EPI) (test 103 ML/MIN/1.73 code = 11476) CALC BUN/CREAT (test code = 16 RATIO 223) SODIUM (test code = 2231) 138 MEQ/L POTASSIUM (test code = 2228) 4.1 MEQ/L CHLORIDE (test code = 2215) 102 MEQ/L CARBON DIOXIDE (test code = 21 MEQ/L 2205) CALCIUM (test code = 2209) 9.3 MG/DL PROTEIN, TOTAL (test code = 7.5 G/DL 2228) ALBUMIN (test code = 220) 4.3 G/DL CALC GLOBULIN (test code = 3.2 G/DL 2239) CALC A/G RATIO (test code = 1.3 RATIO 2233) BILIRUBIN, TOTAL (test code = 0.2 MG/DL 2206) ALKALINE PHOSPHATASE (test 76 U/L code = 2204) AST (test code = 2218) 20 U/L ALT (test code = 2219) 23 U/L HEMOGLOBIN [id number] 00:00:00 Test Item Value Reference Range Interpretation Comments HEMOGLOBIN A1c (test code = 95116) 8.1 % HEMOGLOBIN [id number] 00:00:00 Test Item Value Reference Range Interpretation Comments HEMOGLOBIN A1c (test code = 50625) 8.1 % LIPID [id number] 00:00:00 Test Item Value Reference Range Interpretation Comments CHOLESTEROL (test code = 2210) 170 MG/DL TRIGLYCERIDES (test code = 2232) 272 MG/DL HDL CHOLESTEROL (test code = 2220) 35 MG/DL CALC LDL CHOL (test code = 2237) 96 MG/DL RISK RATIO LDL/HDL (test code = 2.74 RATIO 2238) COMPREHENSIVE METABOLIC [id number] 00:00:00 Test Item Value Reference Range Interpretation Comments GLUCOSE (test code = 2217) 262 MG/DL BUN (test code = 2208) 12 MG/DL CREATININE (test code = 2214) 0.76 MG/DL eGFR (2020 CKD-EPI) (test 103 ML/MIN/1.73 code = 48877) CALC BUN/CREAT (test code = 16 RATIO 2235) SODIUM (test code = 2231) 138 MEQ/L POTASSIUM (test code = 2228) 4.1 MEQ/L CHLORIDE (test code = 2215) 102 MEQ/L CARBON DIOXIDE (test code = 21 MEQ/L 2205) CALCIUM (test code = 2209) 9.3 MG/DL PROTEIN, TOTAL (test code = 7.5 G/DL 2228) ALBUMIN (test code = 2201) 4.3 G/DL CALC GLOBULIN (test code = 3.2 G/DL 2240) CALC A/G RATIO (test code = 1.3 RATIO 2234) BILIRUBIN, TOTAL (test code = 0.2 MG/DL 2206) ALKALINE PHOSPHATASE (test 76 U/L code = 2204) AST (test code = 2218) 20 U/L ALT (test code = 2219) 23 U/L CULTURE, [id number] 08:58:31SPECIMEN NUMBER: [id number] CULTURE, URINE SPECIMEN NUMBER: [id number] SPECIMEN COMMENT: URINE SOURCE:URINE REPORT STATUS: FINAL FINAL REPORT: 07/14/2021 <10,000 CFU/ML UROGENITAL SEVERIANO PRESENT NO COM MON PATHOGENS UNLESS OTHERWISE INDICATED, ALL TESTING PERFORMED [facility] [address] [place] [address] PROCESS MANUFACTURING ENGINEER: SHAMAR ENRIQUE M.D. CLIA NUMBER [id number]. [id number] CULTURE, [id number] 00:00:00 Test Item Value Reference Range Interpretation Comments CULTURE, URINE (test SPECIMEN NUMBER: code = 69907) [id number] CULTURE, [id number] 00:00:00 Test Item Value Reference Range Interpretation Comments CULTURE, URINE (test SPECIMEN NUMBER: code = 37907) [id number] CULTURE, [id number] 00:00:00 Test Item Value Reference Range Interpretation Comments CULTURE, URINE (test SPECIMEN NUMBER: code = 51393) [id number] CULTURE, [id number] 00:00:00 Test Item Value Reference Range Interpretation Comments CULTURE, URINE (test SPECIMEN NUMBER: code = 50334) [id number] CULTURE, [id number] 00:00:00 Test Item Value Reference Range Interpretation Comments CULTURE, URINE (test SPECIMEN NUMBER: code = 74876) [id number] CULTURE, [id number] 00:00:00 Test Item Value Reference Range Interpretation Comments CULTURE, URINE (test SPECIMEN NUMBER: code = 53184) [id number] CULTURE, [id number] 00:00:00 Test Item Value Reference Range Interpretation Comments CULTURE, URINE (test SPECIMEN NUMBER: code = 34361) [id number] CULTURE, [id number] 00:00:00 Test Item Value Reference Range Interpretation Comments CULTURE, URINE (test SPECIMEN NUMBER: code = 29158) [id number] CULTURE, [id number] 00:00:00 Test Item Value Reference Range Interpretation Comments CULTURE, URINE (test SPECIMEN NUMBER: code = 34949) [id number] CULTURE, [id number] 00:00:00 Test Item Value Reference Range Interpretation Comments CULTURE, URINE (test SPECIMEN NUMBER: code = 68798) [id number] CULTURE, [id number] 00:00:00 Test Item Value Reference Range Interpretation Comments CULTURE, URINE (test SPECIMEN NUMBER: code = 44150) [id number] CULTURE, [id number] 00:00:00 Test Item Value Reference Range Interpretation Comments CULTURE, URINE (test SPECIMEN NUMBER: code = 16952) [id number] TSH, THIRD [id number] 06:26:55 Test Item Value Reference Range Interpretation Comments TSH, THIRD GENERATION (test code 1.890 UIU/ML 0.400-4.100 = 2821) VITAMIN [id number] 06:26:55 Test Item Value Reference Range Interpretation Comments VITAMIN B-12 (test 509 PG/ML 200-950 UNLESS O THERWISE code = 2840) INDICATED, ALL TESTING PERFORMED [facility] [address] [place] [address] DIRECTOR: SHAMAR ENRIQUE M.D. CLIA NUMBER [id number] CAP ACCREDITATION N O. [id number] VITAMIN D, [id number] 06:04:49 Test Item Value Reference Range Interpretation Comments VITAMIN D, 25 OH 19 NG/ML SEE BELOW L NOTE: 25-H YDROXYVITAMIN D (test code = 4958) ASSAY INC LUDES 25-HYDROXYVITAM IN D2 AND D3. METHODOLOGY IS CHEMILUMINESCEN T IMMUNOASSAY. INTERPRETIVE RA NGES PEDIATRIC (<17 YEARS) . . . . . . . . . . . NG/ML 20-100ADULT: IN SUFFICIENT . . . . . . . . . . . . . . NG/ML <20 SUBOP TIMAL . . . . . . . . . . . . . . . NG/ML 20-29 OPT IMAL . . . . . . . . . . . . . . . . . NG/ML 30-100 COMPREHENSIVE METABOLIC [id number] 04:05:20 Test Item Value Reference Range Interpretation Comments GLUCOSE (test code = 242 MG/DL 70-99 H 2216) BUN (test code = 12 MG/DL 6-20 2207) CREATININE (test 0.97 MG/DL 0.80-1.40 code = 221) eGFR (2020 CKD-EPI) 90 ML/MIN/1.73 >60 (test code = 26154) CALC BUN/CREAT (test 12 RATIO 6-28 code = 223) SODIUM (test code = 135 MEQ/L 180-795 8953) POTASSIUM (test code 4.1 MEQ/L 3.5-5.4 = 2227) CHLORIDE (test code 99 MEQ/L 95-107 = 2214) CARBON DIOXIDE (test 19 MEQ/L 19-31 code = 220) CALCIUM (test code = 9.9 MG/DL 8.5-10.5 2208) PROTEIN, TOTAL (test 8.0 G/DL 6.1-8.3 code = 222) ALBUMIN (test code = 4.8 G/DL 3.5-5.2 2200) CALC GLOBULIN (test 3.2 G/DL 1.9-3.7 code = 2240) CALC A/G RATIO (test 1.5 RATIO 1.0-2.6 code = 223) BILIRUBIN, TOTAL 0.4 MG/DL See_Comment [Automated message] (test code = 2207) The syste m which generated this result transmit [place] reference range : <=1.2. The refe rence range was not u sed to interpret th is result as normal/abnormal . ALKALINE PHOSPHATASE 84 U/L 40-123 (test code = 2204) AST (test code = 31 U/L 9-50 2217) ALT (test code = 35 U/L 5-50 2218) LIPID [id number] 04:05:20 Test Item Value Reference Range Interpretation Comments CHOLESTEROL (test 186 MG/DL <200 code = 2210) TRIGLYCERIDES (test 365 MG/DL <150 H code = 2232) HDL CHOLESTEROL (test 39 MG/DL >39 L code = 2220) CALC LDL CHOL (test 98 MG/DL <100 NOTE: C ALCULATED LDL code = 2237) IS BASED ON LEONOR-JAUREGUI METHOD WHICHINCLUDES ADJUSTABLE TRIGLYCERIDE:VL DL CHOLESTEROL RAT IO.THIS FACTOR VARIES B Y MEASURED TRIGLY CERIDE AND NON-HDLCHOL ESTEROL CONCENTRATIONS WITH INCREASED CALCU LATED LDL SEENIN HIGH ER TRIGLYCERIDE OR LOWER NON-HDL SPECIME NS. FOR MOREINFORMATION , SEE CLIENT ANNOUNCE MENT AT [email or web address] RISK RATIO LDL/HDL 2.51 RATIO <3.55 (test code = 2238) HEMOGLOBIN [id number] 02:36:46 Test Item Value Reference Range Interpretation Comments HEMOGLOBIN A1c (test 8.4 % 4.2-5.6 H AMERIC AN DIABETES code = 48486) ASSOCIATION IDELINES FOR HGB A1C: PREDIABETES/INC REASED RISK . . . . . . . 5.7 -6.4% DIAGNOSIS OF DI ABETES . . . . . . . . . >=6 .5% WITH CONFIRMATION OR APPROPRIATE SYMPTOMS NOTE: ASSAY MAY BE AFFECTED BY HEMOGLOBINOPATH IES (SICKLE CELL ANEMIA, S- C DISEASE, OTHERS) OR ISHMAEL FICIALLY LOWERED BY DECR EASED RED CELL SURVIVAL ( HEMOLYTIC ANEMIAS, BLOOD LOSS, ETC.). CONSIDER ALTERN ATE TESTING OR LABORATORY C ONSULTATION. CBC W/AUTO DIFF WITH [id number] 02:24:35 Test Item Value Reference Range Interpretation Comments WBC (test code = 9.5 K/UL 3.5-11.0 1001) RBC (test code = 5.53 M/UL 4.50-6.10 1002) HEMOGLOBIN (test code 17.8 G/DL 13.5-17.0 H = 1003) HEMATOCRIT (test code 50.6 % 40.0-51.0 = 1004) MCV (test code = 91.5 fL 80.0-99.0 1005) MCH (test code = 32.2 PG 25.0-33.0 1006) MCHC (test code = 35.2 G/DL 31.0-36.0 1007) RDW (test code = 12.7 % 11.5-15.0 1038) NEUTROPHILS (test 70.8 % code = 1008) LYMPHOCYTES (test 16.0 % code = 1010) MONOCYTES (test code 9.5 % = 1011) EOSINOPHILS (test 2.1 % code = 1012) BASOPHILS (test code 1.2 % = 1013) IMMATURE GRANULOCYTES 0.4 % (test code = 1036) NUCLEATED RBCS (test 0.0 /100 WBC'S See_Comment [Aut omated code = 1065) message] The sy stem which generated this result transmitted reference range : 0.0. The refere nce range was not u sed to interpret th is result as normal/abnormal . PLATELET COUNT (test 132 K/UL 130-400 code = 1015) ABSOLUTE NEUTROPHILS 6.70 K/UL 1.50-7.50 (test code = 1066) ABSOLUTE LYMPHOCYTES 1.51 K/UL 1.00-4.00 (test code = 1067) ABSOLUTE MONOCYTES 0.90 K/UL 0.20-1.00 (test code = 1068) ABSOLUTE EOSINOPHILS 0.20 K/UL 0.00-0.50 (test code = 1040) ABSOLUTE BASOPHILS 0.11 K/UL 0.00-0.20 (test code = 1069) ABS IMMATURE 0.04 K/UL 0.00-0.10 GRANULOCYTES (test code = 1020) ABS NUCLEATED RBCS 0.00 K/UL 0.00-0.11 (test code = 08634) HEMOGLOBIN [id number] 00:00:00 Test Item Value Reference Range Interpretation Comments HEMOGLOBIN A1c (test code = 12388) 8.4 % HEMOGLOBIN [id number] 00:00:00 Test Item Value Reference Range Interpretation Comments HEMOGLOBIN A1c (test code = 46327) 8.4 % HEMOGLOBIN [id number] 00:00:00 Test Item Value Reference Range Interpretation Comments HEMOGLOBIN A1c (test code = 02426) 8.4 % CBC W/AUTO [id number] 00:00:00 Test Item Value Reference Range Interpretation Comments WBC (test code = 1001) 9.5 K/UL RBC (test code = 1002) 5.53 M/UL HEMOGLOBIN (test code = 1003) 17.8 G/DL HEMATOCRIT (test code = 1004) 50.6 % MCV (test code = 1005) 91.5 fL MCH (test code = 1006) 32.2 PG MCHC (test code = 1007) 35.2 G/DL RDW (test code = 1038) 12.7 % NEUTROPHILS (test code = 1008) 70.8 % LYMPHOCYTES (test code = 1010) 16.0 % MONOCYTES (test code = 1011) 9.5 % EOSINOPHILS (test code = 1012) 2.1 % BASOPHILS (test code = 1013) 1.2 % IMMATURE GRANULOCYTES (test 0.4 % code = 1036) NUCLEATED RBCS (test code = 0.0 /100WBC'S 1065) PLATELET COUNT (test code = 132 K/UL 1015) ABSOLUTE NEUTROPHILS (test code 6.70 K/UL = 1066) ABSOLUTE LYMPHOCYTES (test code 1.51 K/UL = 1067) ABSOLUTE MONOCYTES (test code = 0.90 K/UL 1068) ABSOLUTE EOSINOPHILS (test code 0.20 K/UL = 1040) ABSOLUTE BASOPHILS (test code = 0.11 K/UL 1069) ABS IMMATURE GRANULOCYTES (test 0.04 K/UL code = 1020) ABS NUCLEATED RBCS (test code = 0.00 K/UL 48720) CBC W/AUTO [id number] 00:00:00 Test Item Value Reference Range Interpretation Comments WBC (test code = 1001) 9.5 K/UL RBC (test code = 1002) 5.53 M/UL HEMOGLOBIN (test code = 1003) 17.8 G/DL HEMATOCRIT (test code = 1004) 50.6 % MCV (test code = 1005) 91.5 fL MCH (test code = 1006) 32.2 PG MCHC (test code = 1007) 35.2 G/DL RDW (test code = 1038) 12.7 % NEUTROPHILS (test code = 1008) 70.8 % LYMPHOCYTES (test code = 1010) 16.0 % MONOCYTES (test code = 1011) 9.5 % EOSINOPHILS (test code = 1012) 2.1 % BASOPHILS (test code = 1013) 1.2 % IMMATURE GRANULOCYTES (test 0.4 % code = 1036) NUCLEATED RBCS (test code = 0.0 /100WBC'S 1065) PLATELET COUNT (test code = 132 K/UL 1015) ABSOLUTE NEUTROPHILS (test code 6.70 K/UL = 1066) ABSOLUTE LYMPHOCYTES (test code 1.51 K/UL = 1067) ABSOLUTE MONOCYTES (test code = 0.90 K/UL 1068) ABSOLUTE EOSINOPHILS (test code 0.20 K/UL = 1040) ABSOLUTE BASOPHILS (test code = 0.11 K/UL 1069) ABS IMMATURE GRANULOCYTES (test 0.04 K/UL code = 1020) ABS NUCLEATED RBCS (test code = 0.00 K/UL 08091) CBC W/AUTO [id number] 00:00:00 Test Item Value Reference Range Interpretation Comments WBC (test code = 1001) 9.5 K/UL RBC (test code = 1002) 5.53 M/UL HEMOGLOBIN (test code = 1003) 17.8 G/DL HEMATOCRIT (test code = 1004) 50.6 % MCV (test code = 1005) 91.5 fL MCH (test code = 1006) 32.2 PG MCHC (test code = 1007) 35.2 G/DL RDW (test code = 1038) 12.7 % NEUTROPHILS (test code = 1008) 70.8 % LYMPHOCYTES (test code = 1010) 16.0 % MONOCYTES (test code = 1011) 9.5 % EOSINOPHILS (test code = 1012) 2.1 % BASOPHILS (test code = 1013) 1.2 % IMMATURE GRANULOCYTES (test 0.4 % code = 1036) NUCLEATED RBCS (test code = 0.0 /100WBC'S 1065) PLATELET COUNT (test code = 132 K/UL 1015) ABSOLUTE NEUTROPHILS (test code 6.70 K/UL = 1066) ABSOLUTE LYMPHOCYTES (test code 1.51 K/UL = 1067) ABSOLUTE MONOCYTES (test code = 0.90 K/UL 1068) ABSOLUTE EOSINOPHILS (test code 0.20 K/UL = 1040) ABSOLUTE BASOPHILS (test code = 0.11 K/UL 1069) ABS IMMATURE GRANULOCYTES (test 0.04 K/UL code = 1020) ABS NUCLEATED RBCS (test code = 0.00 K/UL 47866) COMPREHENSIVE METABOLIC [id number] 00:00:00 Test Item Value Reference Range Interpretation Comments GLUCOSE (test code = 2217) 242 MG/DL BUN (test code = 2208) 12 MG/DL CREATININE (test code = 2214) 0.97 MG/DL eGFR (2020 CKD-EPI) (test code 90 ML/MIN/1.73 = 05627) CALC BUN/CREAT (test code = 12 RATIO 2235) SODIUM (test code = 2231) 135 MEQ/L POTASSIUM (test code = 2228) 4.1 MEQ/L CHLORIDE (test code = 2215) 99 MEQ/L CARBON DIOXIDE (test code = 19 MEQ/L 220) CALCIUM (test code = 2209) 9.9 MG/DL PROTEIN, TOTAL (test code = 8.0 G/DL 2228) ALBUMIN (test code = 2201) 4.8 G/DL CALC GLOBULIN (test code = 3.2 G/DL 2240) CALC A/G RATIO (test code = 1.5 RATIO 2234) BILIRUBIN, TOTAL (test code = 0.4 MG/DL 2206) ALKALINE PHOSPHATASE (test 84 U/L code = 2204) AST (test code = 2218) 31 U/L ALT (test code = 2219) 35 U/L COMPREHENSIVE METABOLIC [id number] 00:00:00 Test Item Value Reference Range Interpretation Comments GLUCOSE (test code = 2217) 242 MG/DL BUN (test code = 2208) 12 MG/DL CREATININE (test code = 2214) 0.97 MG/DL eGFR (2020 CKD-EPI) (test code 90 ML/MIN/1.73 = 37332) CALC BUN/CREAT (test code = 12 RATIO 2235) SODIUM (test code = 2231) 135 MEQ/L POTASSIUM (test code = 2228) 4.1 MEQ/L CHLORIDE (test code = 2215) 99 MEQ/L CARBON DIOXIDE (test code = 19 MEQ/L 2205) CALCIUM (test code = 2209) 9.9 MG/DL PROTEIN, TOTAL (test code = 8.0 G/DL 2228) ALBUMIN (test code = 2201) 4.8 G/DL CALC GLOBULIN (test code = 3.2 G/DL 2240) CALC A/G RATIO (test code = 1.5 RATIO 2234) BILIRUBIN, TOTAL (test code = 0.4 MG/DL 2206) ALKALINE PHOSPHATASE (test 84 U/L code = 2204) AST (test code = 2218) 31 U/L ALT (test code = 2219) 35 U/L LIPID [id number] 00:00:00 Test Item Value Reference Range Interpretation Comments CHOLESTEROL (test code = 2210) 186 MG/DL TRIGLYCERIDES (test code = 2232) 365 MG/DL HDL CHOLESTEROL (test code = 2220) 39 MG/DL CALC LDL CHOL (test code = 2237) 98 MG/DL RISK RATIO LDL/HDL (test code = 2.51 RATIO 2238) LIPID [id number] 00:00:00 Test Item Value Reference Range Interpretation Comments CHOLESTEROL (test code = 2210) 186 MG/DL TRIGLYCERIDES (test code = 2232) 365 MG/DL HDL CHOLESTEROL (test code = 2220) 39 MG/DL CALC LDL CHOL (test code = 2237) 98 MG/DL RISK RATIO LDL/HDL (test code = 2.51 RATIO 2238) [id number] 00:00:00 Test Item Value Reference Range Interpretation Comments TSH, THIRD GENERATION (test code 1.890 UIU/ML = 2821) [id number] 00:00:00 Test Item Value Reference Range Interpretation Comments TSH, THIRD GENERATION (test code 1.890 UIU/ML = 2821) [id number] 00:00:00 Test Item Value Reference Range Interpretation Comments TSH, THIRD GENERATION (test code 1.890 UIU/ML = 2821) VITAMIN D, 25 [id number] 00:00:00 Test Item Value Reference Range Interpretation Comments VITAMIN D, 25 OH (test code = 4958) 19 NG/ML VITAMIN D, 25 [id number] 00:00:00 Test Item Value Reference Range Interpretation Comments VITAMIN D, 25 OH (test code = 4958) 19 NG/ML VITAMIN [id number] 00:00:00 Test Item Value Reference Range Interpretation Comments VITAMIN B-12 (test code = 2840) 509 PG/ML VITAMIN [id number] 00:00:00 Test Item Value Reference Range Interpretation Comments VITAMIN B-12 (test code = 2840) 509 PG/ML VITAMIN [id number] 00:00:00 Test Item Value Reference Range Interpretation Comments VITAMIN B-12 (test code = 2840) 509 PG/ML HEMOGLOBIN [id number] 00:00:00 Test Item Value Reference Range Interpretation Comments HEMOGLOBIN A1c (test code = 32426) 8.4 % HEMOGLOBIN [id number] 00:00:00 Test Item Value Reference Range Interpretation Comments HEMOGLOBIN A1c (test code = 39092) 8.4 % HEMOGLOBIN [id number] 00:00:00 Test Item Value Reference Range Interpretation Comments HEMOGLOBIN A1c (test code = 09589) 8.4 % CBC W/AUTO [id number] 00:00:00 Test Item Value Reference Range Interpretation Comments WBC (test code = 1001) 9.5 K/UL RBC (test code = 1002) 5.53 M/UL HEMOGLOBIN (test code = 1003) 17.8 G/DL HEMATOCRIT (test code = 1004) 50.6 % MCV (test code = 1005) 91.5 fL MCH (test code = 1006) 32.2 PG MCHC (test code = 1007) 35.2 G/DL RDW (test code = 1038) 12.7 % NEUTROPHILS (test code = 1008) 70.8 % LYMPHOCYTES (test code = 1010) 16.0 % MONOCYTES (test code = 1011) 9.5 % EOSINOPHILS (test code = 1012) 2.1 % BASOPHILS (test code = 1013) 1.2 % IMMATURE GRANULOCYTES (test 0.4 % code = 1036) NUCLEATED RBCS (test code = 0.0 /100WBC'S 1065) PLATELET COUNT (test code = 132 K/UL 1015) ABSOLUTE NEUTROPHILS (test code 6.70 K/UL = 1066) ABSOLUTE LYMPHOCYTES (test code 1.51 K/UL = 1067) ABSOLUTE MONOCYTES (test code = 0.90 K/UL 1068) ABSOLUTE EOSINOPHILS (test code 0.20 K/UL = 1040) ABSOLUTE BASOPHILS (test code = 0.11 K/UL 1069) ABS IMMATURE GRANULOCYTES (test 0.04 K/UL code = 1020) ABS NUCLEATED RBCS (test code = 0.00 K/UL 92410) CBC W/AUTO [id number] 00:00:00 Test Item Value Reference Range Interpretation Comments WBC (test code = 1001) 9.5 K/UL RBC (test code = 1002) 5.53 M/UL HEMOGLOBIN (test code = 1003) 17.8 G/DL HEMATOCRIT (test code = 1004) 50.6 % MCV (test code = 1005) 91.5 fL MCH (test code = 1006) 32.2 PG MCHC (test code = 1007) 35.2 G/DL RDW (test code = 1038) 12.7 % NEUTROPHILS (test code = 1008) 70.8 % LYMPHOCYTES (test code = 1010) 16.0 % MONOCYTES (test code = 1011) 9.5 % EOSINOPHILS (test code = 1012) 2.1 % BASOPHILS (test code = 1013) 1.2 % IMMATURE GRANULOCYTES (test 0.4 % code = 1036) NUCLEATED RBCS (test code = 0.0 /100WBC'S 1065) PLATELET COUNT (test code = 132 K/UL 1015) ABSOLUTE NEUTROPHILS (test code 6.70 K/UL = 1066) ABSOLUTE LYMPHOCYTES (test code 1.51 K/UL = 1067) ABSOLUTE MONOCYTES (test code = 0.90 K/UL 1068) ABSOLUTE EOSINOPHILS (test code 0.20 K/UL = 1040) ABSOLUTE BASOPHILS (test code = 0.11 K/UL 1069) ABS IMMATURE GRANULOCYTES (test 0.04 K/UL code = 1020) ABS NUCLEATED RBCS (test code = 0.00 K/UL 33537) CBC W/AUTO [id number] 00:00:00 Test Item Value Reference Range Interpretation Comments WBC (test code = 1001) 9.5 K/UL RBC (test code = 1002) 5.53 M/UL HEMOGLOBIN (test code = 1003) 17.8 G/DL HEMATOCRIT (test code = 1004) 50.6 % MCV (test code = 1005) 91.5 fL MCH (test code = 1006) 32.2 PG MCHC (test code = 1007) 35.2 G/DL RDW (test code = 1038) 12.7 % NEUTROPHILS (test code = 1008) 70.8 % LYMPHOCYTES (test code = 1010) 16.0 % MONOCYTES (test code = 1011) 9.5 % EOSINOPHILS (test code = 1012) 2.1 % BASOPHILS (test code = 1013) 1.2 % IMMATURE GRANULOCYTES (test 0.4 % code = 1036) NUCLEATED RBCS (test code = 0.0 /100WBC'S 1065) PLATELET COUNT (test code = 132 K/UL 1015) ABSOLUTE NEUTROPHILS (test code 6.70 K/UL = 1066) ABSOLUTE LYMPHOCYTES (test code 1.51 K/UL = 1067) ABSOLUTE MONOCYTES (test code = 0.90 K/UL 1068) ABSOLUTE EOSINOPHILS (test code 0.20 K/UL = 1040) ABSOLUTE BASOPHILS (test code = 0.11 K/UL 1069) ABS IMMATURE GRANULOCYTES (test 0.04 K/UL code = 1020) ABS NUCLEATED RBCS (test code = 0.00 K/UL 70161) COMPREHENSIVE METABOLIC [id number] 00:00:00 Test Item Value Reference Range Interpretation Comments GLUCOSE (test code = 2217) 242 MG/DL BUN (test code = 2208) 12 MG/DL CREATININE (test code = 2214) 0.97 MG/DL eGFR (2020 CKD-EPI) (test code 90 ML/MIN/1.73 = 18644) CALC BUN/CREAT (test code = 12 RATIO 2235) SODIUM (test code = 2231) 135 MEQ/L POTASSIUM (test code = 2228) 4.1 MEQ/L CHLORIDE (test code = 2215) 99 MEQ/L CARBON DIOXIDE (test code = 19 MEQ/L 2205) CALCIUM (test code = 2209) 9.9 MG/DL PROTEIN, TOTAL (test code = 8.0 G/DL 2228) ALBUMIN (test code = 2201) 4.8 G/DL CALC GLOBULIN (test code = 3.2 G/DL 2239) CALC A/G RATIO (test code = 1.5 RATIO 2233) BILIRUBIN, TOTAL (test code = 0.4 MG/DL 2206) ALKALINE PHOSPHATASE (test 84 U/L code = 2204) AST (test code = 2218) 31 U/L ALT (test code = 2219) 35 U/L COMPREHENSIVE METABOLIC [id number] 00:00:00 Test Item Value Reference Range Interpretation Comments GLUCOSE (test code = 2217) 242 MG/DL BUN (test code = 2208) 12 MG/DL CREATININE (test code = 2214) 0.97 MG/DL eGFR (2020 CKD-EPI) (test code 90 ML/MIN/1.73 = 60524) CALC BUN/CREAT (test code = 12 RATIO 2235) SODIUM (test code = 2231) 135 MEQ/L POTASSIUM (test code = 2228) 4.1 MEQ/L CHLORIDE (test code = 2215) 99 MEQ/L CARBON DIOXIDE (test code = 19 MEQ/L 220) CALCIUM (test code = 2209) 9.9 MG/DL PROTEIN, TOTAL (test code = 8.0 G/DL 2228) ALBUMIN (test code = 2201) 4.8 G/DL CALC GLOBULIN (test code = 3.2 G/DL 0) CALC A/G RATIO (test code = 1.5 RATIO 2234) BILIRUBIN, TOTAL (test code = 0.4 MG/DL 2206) ALKALINE PHOSPHATASE (test 84 U/L code = 2204) AST (test code = 2218) 31 U/L ALT (test code = 2219) 35 U/L LIPID [id number] 00:00:00 Test Item Value Reference Range Interpretation Comments CHOLESTEROL (test code = 2210) 186 MG/DL TRIGLYCERIDES (test code = 2232) 365 MG/DL HDL CHOLESTEROL (test code = 2220) 39 MG/DL CALC LDL CHOL (test code = 2237) 98 MG/DL RISK RATIO LDL/HDL (test code = 2.51 RATIO 2238) LIPID [id number] 00:00:00 Test Item Value Reference Range Interpretation Comments CHOLESTEROL (test code = 2210) 186 MG/DL TRIGLYCERIDES (test code = 2232) 365 MG/DL HDL CHOLESTEROL (test code = 2220) 39 MG/DL CALC LDL CHOL (test code = 2237) 98 MG/DL RISK RATIO LDL/HDL (test code = 2.51 RATIO 2238) [id number] 00:00:00 Test Item Value Reference Range Interpretation Comments TSH, THIRD GENERATION (test code 1.890 UIU/ML = 2821) [id number] 00:00:00 Test Item Value Reference Range Interpretation Comments TSH, THIRD GENERATION (test code 1.890 UIU/ML = 2821) [id number] 00:00:00 Test Item Value Reference Range Interpretation Comments TSH, THIRD GENERATION (test code 1.890 UIU/ML = 2821) VITAMIN D, 25 [id number] 00:00:00 Test Item Value Reference Range Interpretation Comments VITAMIN D, 25 OH (test code = 4958) 19 NG/ML VITAMIN D, 25 [id number] 00:00:00 Test Item Value Reference Range Interpretation Comments VITAMIN D, 25 OH (test code = 4958) 19 NG/ML VITAMIN [id number] 00:00:00 Test Item Value Reference Range Interpretation Comments VITAMIN B-12 (test code = 2840) 509 PG/ML VITAMIN [id number] 00:00:00 Test Item Value Reference Range Interpretation Comments VITAMIN B-12 (test code = 2840) 509 PG/ML VITAMIN [id number] 00:00:00 Test Item Value Reference Range Interpretation Comments VITAMIN B-12 (test code = 2840) 509 PG/ML HEMOGLOBIN [id number] 00:00:00 Test Item Value Reference Range Interpretation Comments HEMOGLOBIN A1c (test code = 68562) 8.4 % HEMOGLOBIN [id number] 00:00:00 Test Item Value Reference Range Interpretation Comments HEMOGLOBIN A1c (test code = 00010) 8.4 % CBC W/AUTO [id number] 00:00:00 Test Item Value Reference Range Interpretation Comments WBC (test code = 1001) 9.5 K/UL RBC (test code = 1002) 5.53 M/UL HEMOGLOBIN (test code = 1003) 17.8 G/DL HEMATOCRIT (test code = 1004) 50.6 % MCV (test code = 1005) 91.5 fL MCH (test code = 1006) 32.2 PG MCHC (test code = 1007) 35.2 G/DL RDW (test code = 1038) 12.7 % NEUTROPHILS (test code = 1008) 70.8 % LYMPHOCYTES (test code = 1010) 16.0 % MONOCYTES (test code = 1011) 9.5 % EOSINOPHILS (test code = 1012) 2.1 % BASOPHILS (test code = 1013) 1.2 % IMMATURE GRANULOCYTES (test 0.4 % code = 1036) NUCLEATED RBCS (test code = 0.0 /100WBC'S 1065) PLATELET COUNT (test code = 132 K/UL 1015) ABSOLUTE NEUTROPHILS (test code 6.70 K/UL = 1066) ABSOLUTE LYMPHOCYTES (test code 1.51 K/UL = 1067) ABSOLUTE MONOCYTES (test code = 0.90 K/UL 1068) ABSOLUTE EOSINOPHILS (test code 0.20 K/UL = 1040) ABSOLUTE BASOPHILS (test code = 0.11 K/UL 1069) ABS IMMATURE GRANULOCYTES (test 0.04 K/UL code = 1020) ABS NUCLEATED RBCS (test code = 0.00 K/UL 92856) CBC W/AUTO [id number] 00:00:00 Test Item Value Reference Range Interpretation Comments WBC (test code = 1001) 9.5 K/UL RBC (test code = 1002) 5.53 M/UL HEMOGLOBIN (test code = 1003) 17.8 G/DL HEMATOCRIT (test code = 1004) 50.6 % MCV (test code = 1005) 91.5 fL MCH (test code = 1006) 32.2 PG MCHC (test code = 1007) 35.2 G/DL RDW (test code = 1038) 12.7 % NEUTROPHILS (test code = 1008) 70.8 % LYMPHOCYTES (test code = 1010) 16.0 % MONOCYTES (test code = 1011) 9.5 % EOSINOPHILS (test code = 1012) 2.1 % BASOPHILS (test code = 1013) 1.2 % IMMATURE GRANULOCYTES (test 0.4 % code = 1036) NUCLEATED RBCS (test code = 0.0 /100WBC'S 1065) PLATELET COUNT (test code = 132 K/UL 1015) ABSOLUTE NEUTROPHILS (test code 6.70 K/UL = 1066) ABSOLUTE LYMPHOCYTES (test code 1.51 K/UL = 1067) ABSOLUTE MONOCYTES (test code = 0.90 K/UL 1068) ABSOLUTE EOSINOPHILS (test code 0.20 K/UL = 1040) ABSOLUTE BASOPHILS (test code = 0.11 K/UL 1069) ABS IMMATURE GRANULOCYTES (test 0.04 K/UL code = 1020) ABS NUCLEATED RBCS (test code = 0.00 K/UL 89315) HEMOGLOBIN [id number] 00:00:00 Test Item Value Reference Range Interpretation Comments HEMOGLOBIN A1c (test code = 05228) 8.4 % HEMOGLOBIN [id number] 00:00:00 Test Item Value Reference Range Interpretation Comments HEMOGLOBIN A1c (test code = 53679) 8.4 % COMPREHENSIVE METABOLIC [id number] 00:00:00 Test Item Value Reference Range Interpretation Comments GLUCOSE (test code = 2217) 242 MG/DL BUN (test code = 2208) 12 MG/DL CREATININE (test code = 2214) 0.97 MG/DL eGFR (2020 CKD-EPI) (test code 90 ML/MIN/1.73 = 32430) CALC BUN/CREAT (test code = 12 RATIO 2235) SODIUM (test code = 2231) 135 MEQ/L POTASSIUM (test code = 2228) 4.1 MEQ/L CHLORIDE (test code = 2215) 99 MEQ/L CARBON DIOXIDE (test code = 19 MEQ/L 2205) CALCIUM (test code = 2209) 9.9 MG/DL PROTEIN, TOTAL (test code = 8.0 G/DL 2228) ALBUMIN (test code = 2201) 4.8 G/DL CALC GLOBULIN (test code = 3.2 G/DL 2239) CALC A/G RATIO (test code = 1.5 RATIO 2233) BILIRUBIN, TOTAL (test code = 0.4 MG/DL 2206) ALKALINE PHOSPHATASE (test 84 U/L code = 2204) AST (test code = 2218) 31 U/L ALT (test code = 2219) 35 U/L HEMOGLOBIN [id number] 00:00:00 Test Item Value Reference Range Interpretation Comments HEMOGLOBIN A1c (test code = 62060) 8.4 % CBC W/AUTO [id number] 00:00:00 Test Item Value Reference Range Interpretation Comments WBC (test code = 1001) 9.5 K/UL RBC (test code = 1002) 5.53 M/UL HEMOGLOBIN (test code = 1003) 17.8 G/DL HEMATOCRIT (test code = 1004) 50.6 % MCV (test code = 1005) 91.5 fL MCH (test code = 1006) 32.2 PG MCHC (test code = 1007) 35.2 G/DL RDW (test code = 1038) 12.7 % NEUTROPHILS (test code = 1008) 70.8 % LYMPHOCYTES (test code = 1010) 16.0 % MONOCYTES (test code = 1011) 9.5 % EOSINOPHILS (test code = 1012) 2.1 % BASOPHILS (test code = 1013) 1.2 % IMMATURE GRANULOCYTES (test 0.4 % code = 1036) NUCLEATED RBCS (test code = 0.0 /100WBC'S 1065) PLATELET COUNT (test code = 132 K/UL 1015) ABSOLUTE NEUTROPHILS (test code 6.70 K/UL = 1066) ABSOLUTE LYMPHOCYTES (test code 1.51 K/UL = 1067) ABSOLUTE MONOCYTES (test code = 0.90 K/UL 1068) ABSOLUTE EOSINOPHILS (test code 0.20 K/UL = 1040) ABSOLUTE BASOPHILS (test code = 0.11 K/UL 1069) ABS IMMATURE GRANULOCYTES (test 0.04 K/UL code = 1020) ABS NUCLEATED RBCS (test code = 0.00 K/UL 02774) CBC W/AUTO [id number] 00:00:00 Test Item Value Reference Range Interpretation Comments WBC (test code = 1001) 9.5 K/UL RBC (test code = 1002) 5.53 M/UL HEMOGLOBIN (test code = 1003) 17.8 G/DL HEMATOCRIT (test code = 1004) 50.6 % MCV (test code = 1005) 91.5 fL MCH (test code = 1006) 32.2 PG MCHC (test code = 1007) 35.2 G/DL RDW (test code = 1038) 12.7 % NEUTROPHILS (test code = 1008) 70.8 % LYMPHOCYTES (test code = 1010) 16.0 % MONOCYTES (test code = 1011) 9.5 % EOSINOPHILS (test code = 1012) 2.1 % BASOPHILS (test code = 1013) 1.2 % IMMATURE GRANULOCYTES (test 0.4 % code = 1036) NUCLEATED RBCS (test code = 0.0 /100WBC'S 1065) PLATELET COUNT (test code = 132 K/UL 1015) ABSOLUTE NEUTROPHILS (test code 6.70 K/UL = 1066) ABSOLUTE LYMPHOCYTES (test code 1.51 K/UL = 1067) ABSOLUTE MONOCYTES (test code = 0.90 K/UL 1068) ABSOLUTE EOSINOPHILS (test code 0.20 K/UL = 1040) ABSOLUTE BASOPHILS (test code = 0.11 K/UL 1069) ABS IMMATURE GRANULOCYTES (test 0.04 K/UL code = 1020) ABS NUCLEATED RBCS (test code = 0.00 K/UL 10012) CBC W/AUTO [id number] 00:00:00 Test Item Value Reference Range Interpretation Comments WBC (test code = 1001) 9.5 K/UL RBC (test code = 1002) 5.53 M/UL HEMOGLOBIN (test code = 1003) 17.8 G/DL HEMATOCRIT (test code = 1004) 50.6 % MCV (test code = 1005) 91.5 fL MCH (test code = 1006) 32.2 PG MCHC (test code = 1007) 35.2 G/DL RDW (test code = 1038) 12.7 % NEUTROPHILS (test code = 1008) 70.8 % LYMPHOCYTES (test code = 1010) 16.0 % MONOCYTES (test code = 1011) 9.5 % EOSINOPHILS (test code = 1012) 2.1 % BASOPHILS (test code = 1013) 1.2 % IMMATURE GRANULOCYTES (test 0.4 % code = 1036) NUCLEATED RBCS (test code = 0.0 /100WBC'S 1065) PLATELET COUNT (test code = 132 K/UL 1015) ABSOLUTE NEUTROPHILS (test code 6.70 K/UL = 1066) ABSOLUTE LYMPHOCYTES (test code 1.51 K/UL = 1067) ABSOLUTE MONOCYTES (test code = 0.90 K/UL 1068) ABSOLUTE EOSINOPHILS (test code 0.20 K/UL = 1040) ABSOLUTE BASOPHILS (test code = 0.11 K/UL 1069) ABS IMMATURE GRANULOCYTES (test 0.04 K/UL code = 1020) ABS NUCLEATED RBCS (test code = 0.00 K/UL 17078) COMPREHENSIVE METABOLIC [id number] 00:00:00 Test Item Value Reference Range Interpretation Comments GLUCOSE (test code = 2217) 242 MG/DL BUN (test code = 2208) 12 MG/DL CREATININE (test code = 2214) 0.97 MG/DL eGFR (2020 CKD-EPI) (test code 90 ML/MIN/1.73 = 39184) CALC BUN/CREAT (test code = 12 RATIO 2235) SODIUM (test code = 2231) 135 MEQ/L POTASSIUM (test code = 2228) 4.1 MEQ/L CHLORIDE (test code = 2215) 99 MEQ/L CARBON DIOXIDE (test code = 19 MEQ/L 2205) CALCIUM (test code = 2209) 9.9 MG/DL PROTEIN, TOTAL (test code = 8.0 G/DL 2228) ALBUMIN (test code = 2201) 4.8 G/DL CALC GLOBULIN (test code = 3.2 G/DL 2240) CALC A/G RATIO (test code = 1.5 RATIO 2234) BILIRUBIN, TOTAL (test code = 0.4 MG/DL 2206) ALKALINE PHOSPHATASE (test 84 U/L code = 2204) AST (test code = 2218) 31 U/L ALT (test code = 2219) 35 U/L COMPREHENSIVE METABOLIC [id number] 00:00:00 Test Item Value Reference Range Interpretation Comments GLUCOSE (test code = 2217) 242 MG/DL BUN (test code = 2208) 12 MG/DL CREATININE (test code = 2214) 0.97 MG/DL eGFR (2020 CKD-EPI) (test code 90 ML/MIN/1.73 = 41013) CALC BUN/CREAT (test code = 12 RATIO 2235) SODIUM (test code = 2231) 135 MEQ/L POTASSIUM (test code = 2228) 4.1 MEQ/L CHLORIDE (test code = 2215) 99 MEQ/L CARBON DIOXIDE (test code = 19 MEQ/L 2205) CALCIUM (test code = 2209) 9.9 MG/DL PROTEIN, TOTAL (test code = 8.0 G/DL 2228) ALBUMIN (test code = 220) 4.8 G/DL CALC GLOBULIN (test code = 3.2 G/DL 2239) CALC A/G RATIO (test code = 1.5 RATIO 2233) BILIRUBIN, TOTAL (test code = 0.4 MG/DL 2206) ALKALINE PHOSPHATASE (test 84 U/L code = 2204) AST (test code = 2218) 31 U/L ALT (test code = 2219) 35 U/L LIPID [id number] 00:00:00 Test Item Value Reference Range Interpretation Comments CHOLESTEROL (test code = 2210) 186 MG/DL TRIGLYCERIDES (test code = 2232) 365 MG/DL HDL CHOLESTEROL (test code = 2220) 39 MG/DL CALC LDL CHOL (test code = 2237) 98 MG/DL RISK RATIO LDL/HDL (test code = 2.51 RATIO 2238) LIPID [id number] 00:00:00 Test Item Value Reference Range Interpretation Comments CHOLESTEROL (test code = 2210) 186 MG/DL TRIGLYCERIDES (test code = 2232) 365 MG/DL HDL CHOLESTEROL (test code = 2220) 39 MG/DL CALC LDL CHOL (test code = 2237) 98 MG/DL RISK RATIO LDL/HDL (test code = 2.51 RATIO 2238) LIPID [id number] 00:00:00 Test Item Value Reference Range Interpretation Comments CHOLESTEROL (test code = 2210) 186 MG/DL TRIGLYCERIDES (test code = 2232) 365 MG/DL HDL CHOLESTEROL (test code = 2220) 39 MG/DL CALC LDL CHOL (test code = 2237) 98 MG/DL RISK RATIO LDL/HDL (test code = 2.51 RATIO 2238) [id number] 00:00:00 Test Item Value Reference Range Interpretation Comments TSH, THIRD GENERATION (test code 1.890 UIU/ML = 2821) [id number] 00:00:00 Test Item Value Reference Range Interpretation Comments TSH, THIRD GENERATION (test code 1.890 UIU/ML = 2821) [id number] 00:00:00 Test Item Value Reference Range Interpretation Comments TSH, THIRD GENERATION (test code 1.890 UIU/ML = 2821) [id number] 00:00:00 Test Item Value Reference Range Interpretation Comments TSH, THIRD GENERATION (test code 1.890 UIU/ML = 2821) VITAMIN D, 25 [id number] 00:00:00 Test Item Value Reference Range Interpretation Comments VITAMIN D, 25 OH (test code = 4958) 19 NG/ML VITAMIN D, 25 [id number] 00:00:00 Test Item Value Reference Range Interpretation Comments VITAMIN D, 25 OH (test code = 4958) 19 NG/ML VITAMIN [id number] 00:00:00 Test Item Value Reference Range Interpretation Comments VITAMIN B-12 (test code = 2840) 509 PG/ML VITAMIN [id number] 00:00:00 Test Item Value Reference Range Interpretation Comments VITAMIN B-12 (test code = 2840) 509 PG/ML VITAMIN [id number] 00:00:00 Test Item Value Reference Range Interpretation Comments VITAMIN B-12 (test code = 2840) 509 PG/ML [id number] 00:00:00 Test Item Value Reference Range Interpretation Comments TSH, THIRD GENERATION (test code 1.890 UIU/ML = 2821) VITAMIN D, 25 [id number] 00:00:00 Test Item Value Reference Range Interpretation Comments VITAMIN D, 25 OH (test code = 4958) 19 NG/ML VITAMIN [id number] 00:00:00 Test Item Value Reference Range Interpretation Comments VITAMIN B-12 (test code = 2840) 509 PG/ML VITAMIN [id number] 00:00:00 Test Item Value Reference Range Interpretation Comments VITAMIN B-12 (test code = 2840) 509 PG/ML HEMOGLOBIN [id number] 00:00:00 Test Item Value Reference Range Interpretation Comments HEMOGLOBIN A1c (test code = 19538) 8.4 % HEMOGLOBIN [id number] 00:00:00 Test Item Value Reference Range Interpretation Comments HEMOGLOBIN A1c (test code = 65643) 8.4 % HEMOGLOBIN [id number] 00:00:00 Test Item Value Reference Range Interpretation Comments HEMOGLOBIN A1c (test code = 00742) 8.4 % CBC W/AUTO [id number] 00:00:00 Test Item Value Reference Range Interpretation Comments WBC (test code = 1001) 9.5 K/UL RBC (test code = 1002) 5.53 M/UL HEMOGLOBIN (test code = 1003) 17.8 G/DL HEMATOCRIT (test code = 1004) 50.6 % MCV (test code = 1005) 91.5 fL MCH (test code = 1006) 32.2 PG MCHC (test code = 1007) 35.2 G/DL RDW (test code = 1038) 12.7 % NEUTROPHILS (test code = 1008) 70.8 % LYMPHOCYTES (test code = 1010) 16.0 % MONOCYTES (test code = 1011) 9.5 % EOSINOPHILS (test code = 1012) 2.1 % BASOPHILS (test code = 1013) 1.2 % IMMATURE GRANULOCYTES (test 0.4 % code = 1036) NUCLEATED RBCS (test code = 0.0 /100WBC'S 1065) PLATELET COUNT (test code = 132 K/UL 1015) ABSOLUTE NEUTROPHILS (test code 6.70 K/UL = 1066) ABSOLUTE LYMPHOCYTES (test code 1.51 K/UL = 1067) ABSOLUTE MONOCYTES (test code = 0.90 K/UL 1068) ABSOLUTE EOSINOPHILS (test code 0.20 K/UL = 1040) ABSOLUTE BASOPHILS (test code = 0.11 K/UL 1069) ABS IMMATURE GRANULOCYTES (test 0.04 K/UL code = 1020) ABS NUCLEATED RBCS (test code = 0.00 K/UL 73459) CBC W/AUTO [id number] 00:00:00 Test Item Value Reference Range Interpretation Comments WBC (test code = 1001) 9.5 K/UL RBC (test code = 1002) 5.53 M/UL HEMOGLOBIN (test code = 1003) 17.8 G/DL HEMATOCRIT (test code = 1004) 50.6 % MCV (test code = 1005) 91.5 fL MCH (test code = 1006) 32.2 PG MCHC (test code = 1007) 35.2 G/DL RDW (test code = 1038) 12.7 % NEUTROPHILS (test code = 1008) 70.8 % LYMPHOCYTES (test code = 1010) 16.0 % MONOCYTES (test code = 1011) 9.5 % EOSINOPHILS (test code = 1012) 2.1 % BASOPHILS (test code = 1013) 1.2 % IMMATURE GRANULOCYTES (test 0.4 % code = 1036) NUCLEATED RBCS (test code = 0.0 /100WBC'S 1065) PLATELET COUNT (test code = 132 K/UL 1015) ABSOLUTE NEUTROPHILS (test code 6.70 K/UL = 1066) ABSOLUTE LYMPHOCYTES (test code 1.51 K/UL = 1067) ABSOLUTE MONOCYTES (test code = 0.90 K/UL 1068) ABSOLUTE EOSINOPHILS (test code 0.20 K/UL = 1040) ABSOLUTE BASOPHILS (test code = 0.11 K/UL 1069) ABS IMMATURE GRANULOCYTES (test 0.04 K/UL code = 1020) ABS NUCLEATED RBCS (test code = 0.00 K/UL 34486) CBC W/AUTO [id number] 00:00:00 Test Item Value Reference Range Interpretation Comments WBC (test code = 1001) 9.5 K/UL RBC (test code = 1002) 5.53 M/UL HEMOGLOBIN (test code = 1003) 17.8 G/DL HEMATOCRIT (test code = 1004) 50.6 % MCV (test code = 1005) 91.5 fL MCH (test code = 1006) 32.2 PG MCHC (test code = 1007) 35.2 G/DL RDW (test code = 1038) 12.7 % NEUTROPHILS (test code = 1008) 70.8 % LYMPHOCYTES (test code = 1010) 16.0 % MONOCYTES (test code = 1011) 9.5 % EOSINOPHILS (test code = 1012) 2.1 % BASOPHILS (test code = 1013) 1.2 % IMMATURE GRANULOCYTES (test 0.4 % code = 1036) NUCLEATED RBCS (test code = 0.0 /100WBC'S 1065) PLATELET COUNT (test code = 132 K/UL 1015) ABSOLUTE NEUTROPHILS (test code 6.70 K/UL = 1066) ABSOLUTE LYMPHOCYTES (test code 1.51 K/UL = 1067) ABSOLUTE MONOCYTES (test code = 0.90 K/UL 1068) ABSOLUTE EOSINOPHILS (test code 0.20 K/UL = 1040) ABSOLUTE BASOPHILS (test code = 0.11 K/UL 1069) ABS IMMATURE GRANULOCYTES (test 0.04 K/UL code = 1020) ABS NUCLEATED RBCS (test code = 0.00 K/UL 90471) COMPREHENSIVE METABOLIC [id number] 00:00:00 Test Item Value Reference Range Interpretation Comments GLUCOSE (test code = 2217) 242 MG/DL BUN (test code = 2208) 12 MG/DL CREATININE (test code = 2214) 0.97 MG/DL eGFR (2020 CKD-EPI) (test code 90 ML/MIN/1.73 = 77363) CALC BUN/CREAT (test code = 12 RATIO 2235) SODIUM (test code = 2231) 135 MEQ/L POTASSIUM (test code = 2228) 4.1 MEQ/L CHLORIDE (test code = 2215) 99 MEQ/L CARBON DIOXIDE (test code = 19 MEQ/L 2205) CALCIUM (test code = 2209) 9.9 MG/DL PROTEIN, TOTAL (test code = 8.0 G/DL 2228) ALBUMIN (test code = 2201) 4.8 G/DL CALC GLOBULIN (test code = 3.2 G/DL 2240) CALC A/G RATIO (test code = 1.5 RATIO 2234) BILIRUBIN, TOTAL (test code = 0.4 MG/DL 2206) ALKALINE PHOSPHATASE (test 84 U/L code = 2204) AST (test code = 2218) 31 U/L ALT (test code = 2219) 35 U/L COMPREHENSIVE METABOLIC [id number] 00:00:00 Test Item Value Reference Range Interpretation Comments GLUCOSE (test code = 2217) 242 MG/DL BUN (test code = 2208) 12 MG/DL CREATININE (test code = 2214) 0.97 MG/DL eGFR (2020 CKD-EPI) (test code 90 ML/MIN/1.73 = 64995) CALC BUN/CREAT (test code = 12 RATIO 2235) SODIUM (test code = 2231) 135 MEQ/L POTASSIUM (test code = 2228) 4.1 MEQ/L CHLORIDE (test code = 2215) 99 MEQ/L CARBON DIOXIDE (test code = 19 MEQ/L 2205) CALCIUM (test code = 2209) 9.9 MG/DL PROTEIN, TOTAL (test code = 8.0 G/DL 2228) ALBUMIN (test code = 2201) 4.8 G/DL CALC GLOBULIN (test code = 3.2 G/DL 2239) CALC A/G RATIO (test code = 1.5 RATIO 2234) BILIRUBIN, TOTAL (test code = 0.4 MG/DL 2206) ALKALINE PHOSPHATASE (test 84 U/L code = 2204) AST (test code = 2218) 31 U/L ALT (test code = 2219) 35 U/L LIPID [id number] 00:00:00 Test Item Value Reference Range Interpretation Comments CHOLESTEROL (test code = 2210) 186 MG/DL TRIGLYCERIDES (test code = 2232) 365 MG/DL HDL CHOLESTEROL (test code = 2220) 39 MG/DL CALC LDL CHOL (test code = 2237) 98 MG/DL RISK RATIO LDL/HDL (test code = 2.51 RATIO 2238) LIPID [id number] 00:00:00 Test Item Value Reference Range Interpretation Comments CHOLESTEROL (test code = 2210) 186 MG/DL TRIGLYCERIDES (test code = 2232) 365 MG/DL HDL CHOLESTEROL (test code = 2220) 39 MG/DL CALC LDL CHOL (test code = 2237) 98 MG/DL RISK RATIO LDL/HDL (test code = 2.51 RATIO 2238) [id number] 00:00:00 Test Item Value Reference Range Interpretation Comments TSH, THIRD GENERATION (test code 1.890 UIU/ML = 2821) [id number] 00:00:00 Test Item Value Reference Range Interpretation Comments TSH, THIRD GENERATION (test code 1.890 UIU/ML = 2821) [id number] 00:00:00 Test Item Value Reference Range Interpretation Comments TSH, THIRD GENERATION (test code 1.890 UIU/ML = 2821) VITAMIN D, 25 [id number] 00:00:00 Test Item Value Reference Range Interpretation Comments VITAMIN D, 25 OH (test code = 4958) 19 NG/ML VITAMIN D, 25 [id number] 00:00:00 Test Item Value Reference Range Interpretation Comments VITAMIN D, 25 OH (test code = 4958) 19 NG/ML VITAMIN [id number] 00:00:00 Test Item Value Reference Range Interpretation Comments VITAMIN B-12 (test code = 2840) 509 PG/ML VITAMIN [id number] 00:00:00 Test Item Value Reference Range Interpretation Comments VITAMIN B-12 (test code = 2840) 509 PG/ML VITAMIN [id number] 00:00:00 Test Item Value Reference Range Interpretation Comments VITAMIN B-12 (test code = 2840) 509 PG/ML HEMOGLOBIN [id number] 00:00:00 Test Item Value Reference Range Interpretation Comments HEMOGLOBIN A1c (test code = 44393) 8.4 % HEMOGLOBIN [id number] 00:00:00 Test Item Value Reference Range Interpretation Comments HEMOGLOBIN A1c (test code = 90388) 8.4 % CBC W/AUTO [id number] 00:00:00 Test Item Value Reference Range Interpretation Comments WBC (test code = 1001) 9.5 K/UL RBC (test code = 1002) 5.53 M/UL HEMOGLOBIN (test code = 1003) 17.8 G/DL HEMATOCRIT (test code = 1004) 50.6 % MCV (test code = 1005) 91.5 fL MCH (test code = 1006) 32.2 PG MCHC (test code = 1007) 35.2 G/DL RDW (test code = 1038) 12.7 % NEUTROPHILS (test code = 1008) 70.8 % LYMPHOCYTES (test code = 1010) 16.0 % MONOCYTES (test code = 1011) 9.5 % EOSINOPHILS (test code = 1012) 2.1 % BASOPHILS (test code = 1013) 1.2 % IMMATURE GRANULOCYTES (test 0.4 % code = 1036) NUCLEATED RBCS (test code = 0.0 /100WBC'S 1065) PLATELET COUNT (test code = 132 K/UL 1015) ABSOLUTE NEUTROPHILS (test code 6.70 K/UL = 1066) ABSOLUTE LYMPHOCYTES (test code 1.51 K/UL = 1067) ABSOLUTE MONOCYTES (test code = 0.90 K/UL 1068) ABSOLUTE EOSINOPHILS (test code 0.20 K/UL = 1040) ABSOLUTE BASOPHILS (test code = 0.11 K/UL 1069) ABS IMMATURE GRANULOCYTES (test 0.04 K/UL code = 1020) ABS NUCLEATED RBCS (test code = 0.00 K/UL 51514) CBC W/AUTO [id number] 00:00:00 Test Item Value Reference Range Interpretation Comments WBC (test code = 1001) 9.5 K/UL RBC (test code = 1002) 5.53 M/UL HEMOGLOBIN (test code = 1003) 17.8 G/DL HEMATOCRIT (test code = 1004) 50.6 % MCV (test code = 1005) 91.5 fL MCH (test code = 1006) 32.2 PG MCHC (test code = 1007) 35.2 G/DL RDW (test code = 1038) 12.7 % NEUTROPHILS (test code = 1008) 70.8 % LYMPHOCYTES (test code = 1010) 16.0 % MONOCYTES (test code = 1011) 9.5 % EOSINOPHILS (test code = 1012) 2.1 % BASOPHILS (test code = 1013) 1.2 % IMMATURE GRANULOCYTES (test 0.4 % code = 1036) NUCLEATED RBCS (test code = 0.0 /100WBC'S 1065) PLATELET COUNT (test code = 132 K/UL 1015) ABSOLUTE NEUTROPHILS (test code 6.70 K/UL = 1066) ABSOLUTE LYMPHOCYTES (test code 1.51 K/UL = 1067) ABSOLUTE MONOCYTES (test code = 0.90 K/UL 1068) ABSOLUTE EOSINOPHILS (test code 0.20 K/UL = 1040) ABSOLUTE BASOPHILS (test code = 0.11 K/UL 1069) ABS IMMATURE GRANULOCYTES (test 0.04 K/UL code = 1020) ABS NUCLEATED RBCS (test code = 0.00 K/UL 61767) COMPREHENSIVE METABOLIC [id number] 00:00:00 Test Item Value Reference Range Interpretation Comments GLUCOSE (test code = 2217) 242 MG/DL BUN (test code = 2208) 12 MG/DL CREATININE (test code = 2214) 0.97 MG/DL eGFR (2020 CKD-EPI) (test code 90 ML/MIN/1.73 = 43641) CALC BUN/CREAT (test code = 12 RATIO 2235) SODIUM (test code = 2231) 135 MEQ/L POTASSIUM (test code = 2228) 4.1 MEQ/L CHLORIDE (test code = 2215) 99 MEQ/L CARBON DIOXIDE (test code = 19 MEQ/L 2205) CALCIUM (test code = 2209) 9.9 MG/DL PROTEIN, TOTAL (test code = 8.0 G/DL 2228) ALBUMIN (test code = 2201) 4.8 G/DL CALC GLOBULIN (test code = 3.2 G/DL 2239) CALC A/G RATIO (test code = 1.5 RATIO 2233) BILIRUBIN, TOTAL (test code = 0.4 MG/DL 2206) ALKALINE PHOSPHATASE (test 84 U/L code = 2204) AST (test code = 2218) 31 U/L ALT (test code = 2219) 35 U/L LIPID [id number] 00:00:00 Test Item Value Reference Range Interpretation Comments CHOLESTEROL (test code = 2210) 186 MG/DL TRIGLYCERIDES (test code = 2232) 365 MG/DL HDL CHOLESTEROL (test code = 2220) 39 MG/DL CALC LDL CHOL (test code = 2237) 98 MG/DL RISK RATIO LDL/HDL (test code = 2.51 RATIO 2238) [id number] 00:00:00 Test Item Value Reference Range Interpretation Comments TSH, THIRD GENERATION (test code 1.890 UIU/ML = 2821) [id number] 00:00:00 Test Item Value Reference Range Interpretation Comments TSH, THIRD GENERATION (test code 1.890 UIU/ML = 2821) VITAMIN D, 25 [id number] 00:00:00 Test Item Value Reference Range Interpretation Comments VITAMIN D, 25 OH (test code = 4958) 19 NG/ML VITAMIN [id number] 00:00:00 Test Item Value Reference Range Interpretation Comments VITAMIN B-12 (test code = 2840) 509 PG/ML VITAMIN [id number] 00:00:00 Test Item Value Reference Range Interpretation Comments VITAMIN B-12 (test code = 2840) 509 PG/ML HEMOGLOBIN [id number] 00:00:00 Test Item Value Reference Range Interpretation Comments HEMOGLOBIN A1c (test code = 64510) 8.4 % HEMOGLOBIN [id number] 00:00:00 Test Item Value Reference Range Interpretation Comments HEMOGLOBIN A1c (test code = 20936) 8.4 % CBC W/AUTO [id number] 00:00:00 Test Item Value Reference Range Interpretation Comments WBC (test code = 1001) 9.5 K/UL RBC (test code = 1002) 5.53 M/UL HEMOGLOBIN (test code = 1003) 17.8 G/DL HEMATOCRIT (test code = 1004) 50.6 % MCV (test code = 1005) 91.5 fL MCH (test code = 1006) 32.2 PG MCHC (test code = 1007) 35.2 G/DL RDW (test code = 1038) 12.7 % NEUTROPHILS (test code = 1008) 70.8 % LYMPHOCYTES (test code = 1010) 16.0 % MONOCYTES (test code = 1011) 9.5 % EOSINOPHILS (test code = 1012) 2.1 % BASOPHILS (test code = 1013) 1.2 % IMMATURE GRANULOCYTES (test 0.4 % code = 1036) NUCLEATED RBCS (test code = 0.0 /100WBC'S 1065) PLATELET COUNT (test code = 132 K/UL 1015) ABSOLUTE NEUTROPHILS (test code 6.70 K/UL = 1066) ABSOLUTE LYMPHOCYTES (test code 1.51 K/UL = 1067) ABSOLUTE MONOCYTES (test code = 0.90 K/UL 1068) ABSOLUTE EOSINOPHILS (test code 0.20 K/UL = 1040) ABSOLUTE BASOPHILS (test code = 0.11 K/UL 1069) ABS IMMATURE GRANULOCYTES (test 0.04 K/UL code = 1020) ABS NUCLEATED RBCS (test code = 0.00 K/UL 38079) CBC W/AUTO [id number] 00:00:00 Test Item Value Reference Range Interpretation Comments WBC (test code = 1001) 9.5 K/UL RBC (test code = 1002) 5.53 M/UL HEMOGLOBIN (test code = 1003) 17.8 G/DL HEMATOCRIT (test code = 1004) 50.6 % MCV (test code = 1005) 91.5 fL MCH (test code = 1006) 32.2 PG MCHC (test code = 1007) 35.2 G/DL RDW (test code = 1038) 12.7 % NEUTROPHILS (test code = 1008) 70.8 % LYMPHOCYTES (test code = 1010) 16.0 % MONOCYTES (test code = 1011) 9.5 % EOSINOPHILS (test code = 1012) 2.1 % BASOPHILS (test code = 1013) 1.2 % IMMATURE GRANULOCYTES (test 0.4 % code = 1036) NUCLEATED RBCS (test code = 0.0 /100WBC'S 1065) PLATELET COUNT (test code = 132 K/UL 1015) ABSOLUTE NEUTROPHILS (test code 6.70 K/UL = 1066) ABSOLUTE LYMPHOCYTES (test code 1.51 K/UL = 1067) ABSOLUTE MONOCYTES (test code = 0.90 K/UL 1068) ABSOLUTE EOSINOPHILS (test code 0.20 K/UL = 1040) ABSOLUTE BASOPHILS (test code = 0.11 K/UL 1069) ABS IMMATURE GRANULOCYTES (test 0.04 K/UL code = 1020) ABS NUCLEATED RBCS (test code = 0.00 K/UL 91618) COMPREHENSIVE METABOLIC [id number] 00:00:00 Test Item Value Reference Range Interpretation Comments GLUCOSE (test code = 2217) 242 MG/DL BUN (test code = 2208) 12 MG/DL CREATININE (test code = 2214) 0.97 MG/DL eGFR (2020 CKD-EPI) (test code 90 ML/MIN/1.73 = 34503) CALC BUN/CREAT (test code = 12 RATIO 2235) SODIUM (test code = 2231) 135 MEQ/L POTASSIUM (test code = 2228) 4.1 MEQ/L CHLORIDE (test code = 2215) 99 MEQ/L CARBON DIOXIDE (test code = 19 MEQ/L 2205) CALCIUM (test code = 2209) 9.9 MG/DL PROTEIN, TOTAL (test code = 8.0 G/DL 2228) ALBUMIN (test code = 2201) 4.8 G/DL CALC GLOBULIN (test code = 3.2 G/DL 2240) CALC A/G RATIO (test code = 1.5 RATIO 2234) BILIRUBIN, TOTAL (test code = 0.4 MG/DL 2206) ALKALINE PHOSPHATASE (test 84 U/L code = 2204) AST (test code = 2218) 31 U/L ALT (test code = 2219) 35 U/L LIPID [id number] 00:00:00 Test Item Value Reference Range Interpretation Comments CHOLESTEROL (test code = 2210) 186 MG/DL TRIGLYCERIDES (test code = 2232) 365 MG/DL HDL CHOLESTEROL (test code = 2220) 39 MG/DL CALC LDL CHOL (test code = 2237) 98 MG/DL RISK RATIO LDL/HDL (test code = 2.51 RATIO 2238) [id number] 00:00:00 Test Item Value Reference Range Interpretation Comments TSH, THIRD GENERATION (test code 1.890 UIU/ML = 2821) [id number] 00:00:00 Test Item Value Reference Range Interpretation Comments TSH, THIRD GENERATION (test code 1.890 UIU/ML = 2821) VITAMIN D, 25 [id number] 00:00:00 Test Item Value Reference Range Interpretation Comments VITAMIN D, 25 OH (test code = 4958) 19 NG/ML VITAMIN [id number] 00:00:00 Test Item Value Reference Range Interpretation Comments VITAMIN B-12 (test code = 2840) 509 PG/ML VITAMIN [id number] 00:00:00 Test Item Value Reference Range Interpretation Comments VITAMIN B-12 (test code = 2840) 509 PG/ML HEMOGLOBIN [id number] 00:00:00 Test Item Value Reference Range Interpretation Comments HEMOGLOBIN A1c (test code = 96090) 8.4 % HEMOGLOBIN [id number] 00:00:00 Test Item Value Reference Range Interpretation Comments HEMOGLOBIN A1c (test code = 07552) 8.4 % CBC W/AUTO [id number] 00:00:00 Test Item Value Reference Range Interpretation Comments WBC (test code = 1001) 9.5 K/UL RBC (test code = 1002) 5.53 M/UL HEMOGLOBIN (test code = 1003) 17.8 G/DL HEMATOCRIT (test code = 1004) 50.6 % MCV (test code = 1005) 91.5 fL MCH (test code = 1006) 32.2 PG MCHC (test code = 1007) 35.2 G/DL RDW (test code = 1038) 12.7 % NEUTROPHILS (test code = 1008) 70.8 % LYMPHOCYTES (test code = 1010) 16.0 % MONOCYTES (test code = 1011) 9.5 % EOSINOPHILS (test code = 1012) 2.1 % BASOPHILS (test code = 1013) 1.2 % IMMATURE GRANULOCYTES (test 0.4 % code = 1036) NUCLEATED RBCS (test code = 0.0 /100WBC'S 1065) PLATELET COUNT (test code = 132 K/UL 1015) ABSOLUTE NEUTROPHILS (test code 6.70 K/UL = 1066) ABSOLUTE LYMPHOCYTES (test code 1.51 K/UL = 1067) ABSOLUTE MONOCYTES (test code = 0.90 K/UL 1068) ABSOLUTE EOSINOPHILS (test code 0.20 K/UL = 1040) ABSOLUTE BASOPHILS (test code = 0.11 K/UL 1069) ABS IMMATURE GRANULOCYTES (test 0.04 K/UL code = 1020) ABS NUCLEATED RBCS (test code = 0.00 K/UL 22425) CBC W/AUTO [id number] 00:00:00 Test Item Value Reference Range Interpretation Comments WBC (test code = 1001) 9.5 K/UL RBC (test code = 1002) 5.53 M/UL HEMOGLOBIN (test code = 1003) 17.8 G/DL HEMATOCRIT (test code = 1004) 50.6 % MCV (test code = 1005) 91.5 fL MCH (test code = 1006) 32.2 PG MCHC (test code = 1007) 35.2 G/DL RDW (test code = 1038) 12.7 % NEUTROPHILS (test code = 1008) 70.8 % LYMPHOCYTES (test code = 1010) 16.0 % MONOCYTES (test code = 1011) 9.5 % EOSINOPHILS (test code = 1012) 2.1 % BASOPHILS (test code = 1013) 1.2 % IMMATURE GRANULOCYTES (test 0.4 % code = 1036) NUCLEATED RBCS (test code = 0.0 /100WBC'S 1065) PLATELET COUNT (test code = 132 K/UL 1015) ABSOLUTE NEUTROPHILS (test code 6.70 K/UL = 1066) ABSOLUTE LYMPHOCYTES (test code 1.51 K/UL = 1067) ABSOLUTE MONOCYTES (test code = 0.90 K/UL 1068) ABSOLUTE EOSINOPHILS (test code 0.20 K/UL = 1040) ABSOLUTE BASOPHILS (test code = 0.11 K/UL 1069) ABS IMMATURE GRANULOCYTES (test 0.04 K/UL code = 1020) ABS NUCLEATED RBCS (test code = 0.00 K/UL 77086) COMPREHENSIVE METABOLIC [id number] 00:00:00 Test Item Value Reference Range Interpretation Comments GLUCOSE (test code = 2217) 242 MG/DL BUN (test code = 2208) 12 MG/DL CREATININE (test code = 2214) 0.97 MG/DL eGFR (2020 CKD-EPI) (test code 90 ML/MIN/1.73 = 92615) CALC BUN/CREAT (test code = 12 RATIO 2234) SODIUM (test code = 2231) 135 MEQ/L POTASSIUM (test code = 2228) 4.1 MEQ/L CHLORIDE (test code = 2215) 99 MEQ/L CARBON DIOXIDE (test code = 19 MEQ/L 2205) CALCIUM (test code = 220) 9.9 MG/DL PROTEIN, TOTAL (test code = 8.0 G/DL 2228) ALBUMIN (test code = 220) 4.8 G/DL CALC GLOBULIN (test code = 3.2 G/DL 2239) CALC A/G RATIO (test code = 1.5 RATIO 2233) BILIRUBIN, TOTAL (test code = 0.4 MG/DL 2206) ALKALINE PHOSPHATASE (test 84 U/L code = 220) AST (test code = 221) 31 U/L ALT (test code = 2219) 35 U/L LIPID [id number] 00:00:00 Test Item Value Reference Range Interpretation Comments CHOLESTEROL (test code = 2210) 186 MG/DL TRIGLYCERIDES (test code = 2232) 365 MG/DL HDL CHOLESTEROL (test code = 2220) 39 MG/DL CALC LDL CHOL (test code = 2237) 98 MG/DL RISK RATIO LDL/HDL (test code = 2.51 RATIO 8) [id number] 00:00:00 Test Item Value Reference Range Interpretation Comments TSH, THIRD GENERATION (test code 1.890 UIU/ML = 2821) [id number] 00:00:00 Test Item Value Reference Range Interpretation Comments TSH, THIRD GENERATION (test code 1.890 UIU/ML = 2821) VITAMIN D, 25 [id number] 00:00:00 Test Item Value Reference Range Interpretation Comments VITAMIN D, 25 OH (test code = 4958) 19 NG/ML VITAMIN [id number] 00:00:00 Test Item Value Reference Range Interpretation Comments VITAMIN B-12 (test code = 2840) 509 PG/ML VITAMIN [id number] 00:00:00 Test Item Value Reference Range Interpretation Comments VITAMIN B-12 (test code = 2840) 509 PG/ML
[2022-01-04 10:28] LABS: Urine Blood Negative (Negative); Urine Glucose 3+ (Negative); Urine Protein Negative (Negative); Urine pH 5.5 (5.0-7.0)
[2022-01-04] MEDS ORDERED: MORPHINE 2 MG/ML SYR ONE (10:41)
[2022-01-04] MEDS ORDERED: ONDANSETRON 4 MG/2 ML VIAL ONE (10:41)
[2022-01-04 10:58] LABS: Absolute Lymphocytes (CBC) 1.1 K/uL (0.7-4.9); Lymphocytes % 6.7 % (15.3-44.8); MCV 95.9 fL (80-100); MPV 8.8 fL (7.6-11.3); RBC Red Blood Cell Count 5.31 M/uL (4.33-5.43)
[2022-01-04 11:06] LABS: Albumin 3.8 g/dL (3.4-5.0); Bilirubin Total 0.6 mg/dL (0.2-1.0); Protein, Total 8.2 g/dL (6.4-8.2)
[2022-01-04 11:07] LABS: Potassium 4.9 mmol/L (3.5-5.1)
--- NOTE | 2022-01-04 11:44 | RAD REPORT ---
EXAM DESCRIPTION: CT - Stone Protocol - 01/04/2022 10:54 am CLINICAL HISTORY: Flank pain. right flank pain COMPARISON: No comparisons TECHNIQUE: Axial images were obtained without oral or IV contrast. Lack of contrast limits solid org an and vascular assessment. The [id number] spans the entirety of the system partially obscuring uppermost abdomen and lung bases. Coronal reformatted images were obtained and reviewed. All CT scans are performed using dose optimization technique as appropriate and may include automated exposure control or mA/KV adjustment according to patient size. FINDINGS: The lungs are mildly emphysematous with a calcified granuloma left lung base laterally. Va noam linear opacities in the right middle lobe probably represent scarring or atelectasis. Small hiata l hernia. Imaged portions of the liver and spleen show no suspicious findings on non-contrast imaging. The panc reas and adrenal glands are normal. No pathologic lymphadenopathy in the abdomen or pelvis. No urinary tract stones or obstructive uropathy. No bowel obstruction, free air, free fluid or abscess. Normal appendix noted.Mild to moderate stool i s retained throughout colon. Mild lumbar spondylosis. Small fat containing inguinal hernias bilaterally. IMPRESSION: No urinary tract stones or obstructive uropathy.
--- NOTE | 2022-01-04 12:43 | EDPHYS ---
Physician Documentation [facility] Name: Kelly Guzman Age: 61 yrs Sex: Male : 1960 Arrival Date: 01/04/2022 Time: 09:45 Bed 19 Private MD: ED Physician Ander Rice HPI: 01/04 12:38 This 61 yrs old Male presents to ER via Ambulatory with complaints of Back jmm Pain. 12:38 The patient presents with pain that is acute. Onset: The symptoms/episode jmm began/occurred gradually, 1 week(s) ago. The pain radiates to the abdomen. This is a 61 year old male with a history of dm, pemphigus that presents to the ED with complaints of right flank pain, dysuria. Symptoms have been ongoing for a week. Denies fever. . Historical: - Allergies: 10:19 No Known Allergies; iw - PMHx: 10:19 Diabetes mellitus; pemphigus; iw - Social history:: Smoking status: Patient reports the use of cigarette tobacco products. ROS: 12:38 Constitutional: Negative for fever, chills, and weight loss, Cardiovascular: Negative jmm for chest pain, palpitations, and edema, Respiratory: Negative for shortness of breath, cough, wheezing, and pleuritic chest pain. 12:38 Abdomen/GI: Positive for nausea. 12:38 Back: Positive for flank pain, on the right. 12:38 All other systems are negative. Exam: 12:38 Constitutional: This is a well developed, well nourished patient who is awake, alert, jmm and in no acute distress. Head/Face: atraumatic. Eyes: EOMI, no conjunctival erythema appreciated ENT: Moist Mucus Membranes Neck: Trachea midline, Supple Chest/axilla: Normal chest wall appearance and motion. Cardiovascular: Regular rate and rhythm. No edema appreciated Respiratory: Normal respirations, no respiratory distress appreciated Abdomen/GI: Non distended 12:38 Skin: General appearance color normal MS/ Extremity: Moves all extremities, no obvious deformities appreciated, no edema noted to the lower extremities Neuro: Awake and alert Psych: Behavior is normal, Mood is normal, Patient is cooperative and pleasant 12:38 Back: CVA tenderness, that is moderate, is noted on the right. Vital Signs: 10:17 BP 142 / 78; Pulse 95; Resp 16; Temp 97.4; Pulse Ox 98% on R/A; iw 11:38 BP 116 / 81; Pulse 90; Resp 18; Pulse Ox 95% on R/A; Pain 5/10; mb8 MDM: 10:27 Patient medically screened. sim 12:40 Data reviewed: vital signs, nurses notes. Counseling: I had a detailed discussion with zuri the patient and/or guardian regarding: the historical points, exam findings, and any diagnostic results supporting the discharge/admit diagnosis, radiology results, the need for outpatient follow up, to return to the emergency department if symptoms worsen or persist or if there are any questions or concerns that arise at home. 01/04 10:28 Order name: Urine Dipstick-Ancillary; Complete Time: 10:31 [facility] 01/04 10:31 Order name: CBC with Diff; Complete Time: 11:03 [facility] 01/04 10:31 Order name: CMP; Complete Time: 11:10 [facility] 01/04 10:31 Order name: Lipase; Complete Time: 11:10 [facility] 01/04 10:31 Order name: CT Stone Protocol; Complete Time: 11:45 [facility] 01/04 10:31 Order name: IV Saline Lock; Complete Time: 10:46 [facility] 01/04 10:31 Order name: Labs collected and sent; Complete Time: 10:46 [facility] Administered Medications: 10:43 Drug: morphine 2 mg Route: IVP; Infused Over: 4 mins; Site: right forearm; mb8 11:28 Follow up: Response: No adverse reaction; Pain is decreased; RASS: Alert and Calm (0) mb8 10:45 Drug: Zofran (Ondansetron) 4 mg Route: IVP; Site: right forearm; mb8 11:28 Follow up: Response: No adverse reaction; Nausea is decreased mb8 Disposition Summary: 01/04/22 12:42 Discharge Ordered Location: Home [facility] Condition: Stable [facility] Diagnosis - Flank Pain [facility] - Dysuria [facility] Followup: [facility] - With: Private Physician - When: 2 - 3 days - Reason: Recheck today's complaints, Continuance of care, Re-evaluation by your physician Discharge Instructions: - Discharge Summary Sheet [facility] - Dysuria [facility] - Flank Pain, Adult [facility] Forms: - Medication Reconciliation Form jmm - Thank You Letter jmm - Antibiotic Education jmm - Prescription Opioid Use [facility] Prescriptions: - Cephalexin 500 mg Oral Capsule - take 1 capsule by ORAL route every 8 hours for 10 days; 30 capsule; Refills: 0, [facility] Product Selection Permitted - Zanaflex 4 mg Oral Tablet - take 1 tablet by ORAL route every 8 hours As needed; 20 tablet; Refills: 0, [facility] Product Selection Permitted Addendum: 01/08/2022 04:06 Co-signature as Attending Physician, Ander Rice MD I agree with the assessment and c rossi plan of care. Signatures: Dispatcher [employer] EDAnder Calabrese MD MD cha Mickail, Joel, PA PA jmm Williams, Irene, RN RN Kurtis Crowe RN RN [id number]
--- NOTE | 2022-01-04 12:43 | ER ---
Nurse's Notes [facility] Name: Kelly Guzman Age: 61 yrs Sex: Male : 1960 Arrival Date: 01/04/2022 Time: 09:45 Bed 19 Private MD: Diagnosis: Flank Pain;Dysuria Presentation: 01/04 10:17 Chief complaint: Patient states: right flank pain X 7 days, + pain with urination. iw Coronavirus screen: At this time, the client does not indicate any symptoms associated with coronavirus-19. Ebola Screen: Patient negative for fever greater than or equal to 101.5 degrees Fahrenheit, and additional compatible Ebola Virus Disease symptoms Patient denies exposure to infectious person. Patient denies travel to an Ebola-affected area in the 21 days before illness onset. No symptoms or risks identified at this time. Initial Sepsis Screen: Does the patient meet any 2 criteria? No. Patient's initial sepsis screen is negative. Does the patient have a suspected source of infection? No. Patient's initial sepsis screen is negative. Risk Assessment: Do you want to hurt yourself or someone else? Patient reports no desire to harm self or others. Onset of symptoms was December 27, 2021. 10:17 Method Of Arrival: Ambulatory iw 10:17 Acuity: SAMPSON 3 iw Historical: - Allergies: 10:19 No Known Allergies; iw - PMHx: 10:19 Diabetes mellitus; pemphigus; iw - Social history:: Smoking status: Patient reports the use of cigarette tobacco products. Screenin:35 Abuse screen: Denies threats or abuse. Denies injuries from another. Nutritional mb8 screening: No deficits noted. Tuberculosis screening: No symptoms or risk factors identified. Fall Risk No fall in past 12 months (0 pts). Secondary diagnosis (15 points) No IV (0 pts). Ambulatory Aid- None/Bed Rest/Nurse Assist (0 pts). Gait- Normal/Bed Rest/Wheelchair (0 pts) Mental Status- Oriented to own ability (0 pts). Total Cruz Fall Scale indicates No Risk (0-24 pts). Assessment: 10:35 Pain: Complains of pain in right mid back and right low back Pain does not radiate. mb8 Pain currently is 8 out of 10 on a pain scale. Quality of pain is described as aching. Neuro: No deficits noted. Level of Consciousness is awake, alert, obeys commands, Oriented to person, place, time, situation, Appropriate for age Implementation Advisor are equal bilaterally Moves all extremities. Full function Gait is steady, Speech is normal, Facial symmetry appears normal, Pupils are PERRLA, Pupil Size: 3 Intact. Cardiovascular: No deficits noted. Respiratory: No deficits noted. GI: Patient currently denies diarrhea, nausea, vomiting. : Reports burning with urination. 10:35 General: Appears uncomfortable, Behavior is calm, cooperative, appropriate for age. mb8 11:38 Reassessment: Patient and/or family updated on plan of care and expected duration. Pain mb8 level reassessed. Patient is alert, oriented x 3, equal unlabored respirations, skin warm/dry/pink. Patient states feeling better. Vital Signs: 10:17 BP 142 / 78; Pulse 95; Resp 16; Temp 97.4; Pulse Ox 98% on R/A; iw 11:38 BP 116 / 81; Pulse 90; Resp 18; Pulse Ox 95% on R/A; Pain 5/10; mb8 ED Course: 09:45 Patient arrived in ED. mr 10:14 Mohamud Mane PA is PHCP. jmm 10:14 Ander Rice MD is Attending Physician. jmm 10:19 Triage completed. iw 10:20 Kurtis Kelley, RN is Primary Nurse. mb8 10:20 Arm band placed on. iw 10:30 Urine collected:. mb8 10:35 Placed in gown. Bed in low position. Call light in reach. Side rails up X2. Client mb8 placed on continuous cardiac and pulse oximetry monitoring. NIBP monitoring applied. 10:35 No provider procedures requiring assistance completed. Inserted saline lock: 20 gauge mb8 in right forearm, using aseptic technique. Blood collected. 10:[address] via wheelchair. mb8 10:56 CT Stone Protocol In Process Unspecified. EDMS 11:[address] Patient [address] back from [address]. mb8 13:12 IV discontinued, intact, bleeding controlled, No redness/swelling at site. Pressure mb8 dressing applied. Administered Medications: 10:43 Drug: morphine 2 mg Route: IVP; Infused Over: 4 mins; Site: right forearm; mb8 11:28 Follow up: Response: No adverse reaction; Pain is decreased; RASS: Alert and Calm (0) mb8 10:45 Drug: Zofran (Ondansetron) 4 mg Route: IVP; Site: right forearm; mb8 11:28 Follow up: Response: No adverse reaction; Nausea is decreased mb8 Medication: 10:47 VIS not applicable for this client. mb8 Outcome: 12:42 Discharge ordered by . zuri 13:16 Discharged to home ambulatory. mb8 13:16 Condition: stable 13:16 Discharge instructions given to patient, Instructed on discharge instructions, follow up and referral plans. no drinking with medication, no driving heavy equipment, medication usage, Demonstrated understanding of instructions, follow-up care, medications, Prescriptions given X 2. 13:16 Patient left the ED. mb8 Signatures: Dispatcher [employer] EDMS Mohamud Mane PA PA jmm Rivera, Mary mr Bethanie Garza, RN Kurtis Thompson RN RN mb8
[2022-01-04 13:27] VITALS: TEMP 97.4
[2022-01-04 13:28] VITALS: BP 116/81; O2SAT 95
== END 2022-01-04 13:16 | disposition home or self-care (01) ==
LOC: ER 09:40
DX: R10.9 Unspecified abdominal pain (principal); R30.0 Dysuria; E11.9 Type 2 diabetes mellitus without complications; F17.210 Nicotine dependence, cigarettes, uncomplicated; L10.9 Pemphigus, unspecified
CPT/HCPCS: 85025; 36415; 81003; 83690; 80053; 76377; 74176; 96375; 96374; 99284; J2270; J2405

== ENCOUNTER → 2023-05-05 | Emergency (ER) | payer OTHER ==
[~2023-05-05] MED LIST: FAMOTIDINE 20 MG/2 ML VIAL IV ONE; MAGNES/ALUMIN/SIMET 30ML UCUP ONE; NA CHLORIDE 0.9% 1,000 ML ONE; PANTOPRAZOLE 40 MG INJ ONE
--- OUTSIDE RECORDS SUMMARY | 2023-05-05 10:59 | XMS REPORT | Continuity of Care Document ---
Author Name Unknown Address [address] [place] [address] [facility] Address [address] [place] [address] Care Team Providers Care Gift Officer Name Role Phone Renzo Martinez Primary Care Physician Jose Guadalupe Kilgore Attending Clinician Unavailable Problems Condition Name Condition Details Condition Category Status Onset Date Resolution Date Last Treatment Date Treating Clinician Comments Source [id number] Pemphigus vulgaris Problem [facility] Decreased hearing Decreased hearing Problem [facility] Allergies, Adverse Reactions, Alerts Allergy Name Allergy Type Status Severity Reaction(s) Onset Date Inactive Date Treating Clinician Comments Source [place] - Intraven ous Propens[place] ty to adverse reaction to drug Active 09-10 00:00: 00 Social History Social Habit Start Date Stop Date Quantity Comments Source History of Tobacco Use Current Smoker [facility] Sex Assigned At [facility] Smoking Status Start Date Stop Date Source Current Smoker 2020-12-18 00:00:00 [facility] Medications Ordered Medication Name Filled Medication Name Start Date Stop Date Current Medication? Ordering Clinician Indication Dosage Frequency Signature (SIG) Comments Components Source TAKE 1 TABLET BY MOUTH TWICE DAILY -16 00:00: 00 No TAKE 1 TABLET BY MOUTH TWICE DAILY -11 00:00: 00 No Dose Unknown 2021-03- 00:00: 00 No SULCONAZOLE NITRATE 1% RAHEL 2021-03-15 00:00: 00 No TAKE 1 TABLET BY MOUTH ONCE DAILY 2021-03 215 00:00: 00 No TAKE 2 TABLETS BY MOUTH TWICE DAILY 2021-03 2 00:00: 00 No Dose Unknown 2021-03 2 00:00: 00 No PENTOXIFYLL I 400MG ER TAB 2021-03 2 00:00: 00 No INSTILL 2 DROPS INTO EACH EAR TWICE DAILY FOR INFLAMMATIO N AND FOR ITCHING 2021-03 2 00:00: 00 No TAKE 1 CAPSULE BY MOUTH ONCE DAILY 2021-03 2 00:00: 00 No VICTOZA 3'S 18MG/3ML PEN 2021-03 00:00: 00 No Dose Unknown 2021-03 00:00: 00 No TAKE 1 TABLET BY MOUTH EVERY 8 HOURS NEEDED 2021-03 00:00: 00 No APPLY SPARINGLY TO AFFECTED AREAS THREE TIMES A DAY 2021-03 2 00:00: 00 No TAKE 1 TABLET BY MOUTH TWICE DAILY 2021-03 00:00: 00 No Dose Unknown 2021-03 00:00: 00 No Dose Unknown 2021-03 00:00: 00 No CLOBETASOL PROPIONATE 0.05% OIN 2021-03 2 00:00: 00 No CETIRIZINE HYDROCHLORI DE 10MG TAB 2021-03 2 00:00: 00 No Dose Unknown 2021-03 2 00:00: 00 No TAKE 1 CAPSULE BY MOUTH TWICE DAILY 2021-03 2 00:00: 00 No Dose Unknown 2021-03 2 00:00: 00 No INSTILL 4 DROPS INTO AFFECTED EAR THREE TIMES DAILY FOR 5 DAYS 2021-03 00:00: 00 No TAKE 1 TABLET BY MOUTH TWICE DAILY WITH MEALS 2021-03 00:00: 00 No METFORMIN HYDROCHLORI DE E 1000 ER TAB 2021-03 2 00:00: 00 No HYDROCORT 1% RX CRE 2021-03 2 00:00: 00 No Dose Unknown 2021-03 2 00:00: 00 No APPLY OINTMENT TOPICALLY TWICE DAILY ( APPLY SPARINGLY TO AFFECTED AREA(S) ) 202205-01 00:00: 00 No RINSE MOUTH WITH 15ML (1 CAPFUL) FOR 30 SECONDS AM AND PM AFTER TOOTHBRUSHI NG. EXPECTORATE AFTER RINSING, DO NOT SWALLOW 2021-03 00:00: 00 No TAKE 1 TABLET EVERY 12 HOURS NEEDED. 2021-03 00:00: 00 No TAKE 1 TABLET DAILY. 2021-03 00:00: 00 No TAKE 1 CAPSULE TWICE DAILY. 2021-03 00:00: 00 No TAKE 1 CAPSULE 2-3 TIMES DAILY. 2021-03 00:00: 00 No TAKE 1 TABLET DAILY DIRECTED. 2021-03 00:00: 00 No TAKE 1 TABLET EVERY 12 HOURS DAILY. 2021-03 00:00: 00 No TAKE ONE TABLET TWICE A DAY 2021-03 00:00: 00 No TAKE 1 TABLET 3 TIMES DAILY NEEDED. 2021-03 00:00: 00 No TAKE 1 CAPSULE TWICE DAILY. 2021-03 00:00: 00 No TAKE 1 TABLET DAILY. 2021-03 00:00: 00 No Dose Unknown 2021-03 00:00: 00 No GABAPENTIN 300MG 2021-03 00:00: 00 No Dose Unknown 2021-03 00:00: 00 No Dose Unknown 2021-03 00:00: 00 No Dose Unknown 2021-03 00:00: 00 No LOPERAMIDE HCL 2MG 2021-03 00:00: 00 No TAKE 1 TABLET BY MOUTH TWICE DAILY FOR 5 DAYS THEN DECREASE TO 1 TABLET ONCE DAILY FOR 5 DAYS. THEN 0.5 (HALF) A TABLET FOR 5 DAYS START WITH PREDNISODE 50 MG, THEN 10 MG TABLETS 2021-03 00:00: 00 No Dose Unknown 2021-03 00:00: 00 No INSTILL 5 DROPS INTO LEFT EAR TWICE DAILY FOR 2 WEEKS 2021-03 00:00: 00 No KETOCONAZOL E 2% CRE 2021-03 00:00: 00 No FLUOCINOLON E ACETONIDE 0.01% OIL 2021-03 00:00: 00 No OMEPRAZOLE 40MG 2022-1 2-15 00:00: 00 No CEPHALEXIN 500MG 2021-03 2-15 00:00: 00 No Dose Unknown 2021-03 2-15 00:00: 00 No CLOBETASOL PROPIONATE 0.05% [facility] 2021-03 2-15 00:00: 00 No Dose Unknown 2021-03 2-15 00:00: 00 No CLONAZEPAM 1MG TAB 2021-03 2-15 00:00: 00 No TRIAMCINOLO NE ACETONIDE 0.025% CRE 2021-03 2-15 00:00: 00 No TAKE 1 TABLET BY MOUTH ONCE DAILY 2021-03 2-15 00:00: 00 No ACYCLOVIR 5% CRE 2021-03 2-15 00:00: 00 No Dose Unknown 2021-03 2-15 00:00: 00 No LORATADINE 10MG TAB 2021-03 2-15 00:00: 00 No SIMVASTATIN 10MG TAB 2021-03 2-15 00:00: 00 No Dose Unknown 2021-03 2-15 00:00: 00 No Dose Unknown 2021-03 2-15 00:00: 00 No Dose Unknown 2021-03 2-15 00:00: 00 No KETOCONAZOL E 2% [facility] 2021-03 2-15 00:00: 00 No Dose Unknown 2021-03 2-15 00:00: 00 No Dose Unknown 2021-03 2-15 00:00: 00 No ATENOLOL 100MG TAB 2021-03 2-15 00:00: 00 No TRAZODONE HYDROCHLORI DE 50MG TAB 2021-03 2-15 00:00: 00 No IBUPROFEN 800MG TAB 2021-03 2-15 00:00: 00 No JANUVIA 100MG TAB 2021-03 2-15 00:00: 00 No TOME MENA TABLETA DOS VECES AL D A 2021-03 2-15 00:00: 00 No BUPROPION HCL 75MG TAB 2021-03 2-15 00:00: 00 No GLUMETZA 500MG TAB 2021-03 2-15 00:00: 00 No PREVALITE 4GM PKT POW 2021-03 2-15 00:00: 00 No TAKE 1 TABLET BY MOUTH EVERY 8 HOURS NEEDED 2021-03 2-15 00:00: 00 No Dose Unknown 2021-03 2-15 00:00: 00 No Dose Unknown 2021-03 2-15 00:00: 00 No Dose Unknown 2021-03 2-15 00:00: 00 No TAKE 1 TABLET BY MOUTH TWICE DAILY WITH FOOD 2021-03 2-15 00:00: 00 No Dose Unknown 2021-03 2-15 00:00: 00 No PENTOXIFYLL INE ER 400MG ER TAB 2021-03 2-15 00:00: 00 No NITROFUR MON 100MG 2021-03 2-15 00:00: 00 No PREDNISONE 20MG TAB 2021-03 2-15 00:00: 00 No Dose Unknown 2021-03 2-15 00:00: 00 No Dose Unknown 2021-03 2-15 00:00: 00 No SULCONAZOLE NITRATE 1% RAHEL 2021-03 2-15 00:00: 00 No TAKE 1 TABLET BY MOUTH ONCE DAILY 2021-03 2-15 00:00: 00 No TAKE 2 TABLETS BY MOUTH TWICE DAILY 2021-03 2-15 00:00: 00 No Dose Unknown 2021-03 2-15 00:00: 00 No PENTOXIFYLL I 400MG ER TAB 2021-03 2-15 00:00: 00 No INSTILL 2 DROPS INTO EACH EAR TWICE DAILY FOR INFLAMMATIO N AND FOR ITCHING 2021-03 2-15 00:00: 00 No TAKE 1 CAPSULE BY MOUTH ONCE DAILY 2021-03 2-15 00:00: 00 No VICTOZA 3'S 18MG/3ML PEN 2021-03 2-15 00:00: 00 No Dose Unknown 2021-03 2-15 00:00: 00 No TAKE 1 TABLET BY MOUTH EVERY 8 HOURS NEEDED 2021-03 2-15 00:00: 00 No APPLY SPARINGLY TO AFFECTED AREAS THREE TIMES A DAY 2021-03 2-15 00:00: 00 No TAKE 1 TABLET BY MOUTH TWICE DAILY 2021-03 2-15 00:00: 00 No Dose Unknown 2021-03 2-15 00:00: 00 No Dose Unknown 2021-03 2-15 00:00: 00 No CLOBETASOL PROPIONATE 0.05% OIN 2021-03 2-15 00:00: 00 No CETIRIZINE HYDROCHLORI DE 10MG TAB 2021-03 2-15 00:00: 00 No Dose Unknown 2021-03 2-15 00:00: 00 No TAKE 1 CAPSULE BY MOUTH TWICE DAILY 2021-03 00:00: 00 No Dose Unknown 2021-03 00:00: 00 No INSTILL 4 DROPS INTO AFFECTED EAR THREE TIMES DAILY FOR 5 DAYS 2021-03 00:00: 00 No TAKE 1 TABLET BY MOUTH TWICE DAILY WITH MEALS 2021-03 00:00: 00 No METFORMIN HYDROCHLORI DE E 1000 ER TAB 2021-03 00:00: 00 No HYDROCORT 1% RX CRE 2021-03 00:00: 00 No Dose Unknown 2021-03 00:00: 00 No APPLY OINTMENT TOPICALLY TWICE DAILY ( APPLY SPARINGLY TO AFFECTED AREA(S) ) 2021-03 00:00: 00 No RINSE MOUTH WITH 15ML (1 CAPFUL) FOR 30 SECONDS AM AND PM AFTER TOOTHBRUSHI NG. EXPECTORATE AFTER RINSING, DO NOT SWALLOW 2021-03 00:00: 00 No TAKE 1 TABLET EVERY 12 HOURS NEEDED. 2021-03 00:00: 00 No TAKE 1 TABLET DAILY. 2021-03 00:00: 00 No TAKE 1 CAPSULE TWICE DAILY. 2021-03 00:00: 00 No TAKE 1 CAPSULE 2-3 TIMES DAILY. 2021-03 00:00: 00 No TAKE 1 TABLET DAILY DIRECTED. 2021-03 00:00: 00 No TAKE 1 TABLET EVERY 12 HOURS DAILY. 2021-03 00:00: 00 No TAKE ONE TABLET TWICE A DAY 2021-03 00:00: 00 No TAKE 1 TABLET 3 TIMES DAILY NEEDED. 2021-03 00:00: 00 No TAKE 1 CAPSULE TWICE DAILY. 2021-03 00:00: 00 No TAKE 1 TABLET DAILY. 2021-03 00:00: 00 No Dose Unknown 2021-03 00:00: 00 No GABAPENTIN 300MG 2021-03 00:00: 00 No Dose Unknown 2021-03 00:00: 00 No Dose Unknown 2021-03 00:00: 00 No Dose Unknown 2021-03 00:00: 00 No LOPERAMIDE HCL 2MG 2021-03 00:00: 00 No TAKE 1 TABLET BY MOUTH TWICE DAILY FOR 5 DAYS THEN DECREASE TO 1 TABLET ONCE DAILY FOR 5 DAYS. THEN 0.5 (HALF) A TABLET FOR 5 DAYS START WITH PREDNISODE 50 MG, THEN 10 MG TABLETS 2021-03 00:00: 00 No Dose Unknown 2021-03 00:00: 00 No INSTILL 5 DROPS INTO LEFT EAR TWICE DAILY FOR 2 WEEKS 2021-03 00:00: 00 No KETOCONAZOL E 2% CRE 2021-03 00:00: 00 No FLUOCINOLON E ACETONIDE 0.01% OIL 2021-03 00:00: 00 No OMEPRAZOLE 40MG 2021-03 00:00: 00 No CEPHALEXIN 500MG 2021-03 00:00: 00 No Dose Unknown 2021-03 00:00: 00 No CLOBETASOL PROPIONATE 0.05% SHA 2021-03 00:00: 00 No Dose Unknown 2021-03 00:00: 00 No CLONAZEPAM 1MG TAB 2021-03 00:00: 00 No TRIAMCINOLO NE ACETONIDE 0.025% CRE 2021-03 00:00: 00 No TAKE 1 TABLET BY MOUTH ONCE DAILY 2021-03 00:00: 00 No ACYCLOVIR 5% CRE 2021-03 00:00: 00 No Dose Unknown 2021-03 00:00: 00 No LORATADINE 10MG TAB 2021-03 00:00: 00 No SIMVASTATIN 10MG TAB 2021-03 00:00: 00 No Dose Unknown 2021-03 00:00: 00 No Dose Unknown 2021-03 00:00: 00 No Dose Unknown 2021-03 00:00: 00 No KETOCONAZOL E 2% SHA 2021-03 00:00: 00 No Dose Unknown 2021-03 00:00: 00 No Dose Unknown 2021-03 00:00: 00 No ATENOLOL 100MG TAB 2021-03 00:00: 00 No TRAZODONE HYDROCHLORI DE 50MG TAB 2022-1 2-15 00:00: 00 No IBUPROFEN 800MG TAB 2021-03 2-15 00:00: 00 No JANUVIA 100MG TAB 2021-03 2-15 00:00: 00 No TOME MENA TABLETA DOS VECES AL D A 2021-03 2-15 00:00: 00 No BUPROPION HCL 75MG TAB 2021-03 2-15 00:00: 00 No GLUMETZA 500MG TAB 2021-03 2-15 00:00: 00 No PREVALITE 4GM PKT POW 2021-03 2-15 00:00: 00 No TAKE 1 TABLET BY MOUTH EVERY 8 HOURS NEEDED 2021-03 2-15 00:00: 00 No Dose Unknown 2021-03 2-15 00:00: 00 No Dose Unknown 2021-03 2-15 00:00: 00 No Dose Unknown 2021-03 2- 00:00: 00 No TAKE 1 TABLET BY MOUTH TWICE DAILY WITH FOOD 2021-03 2- 00:00: 00 No Dose Unknown 2021-03 2-15 00:00: 00 No PENTOXIFYLL INE ER 400MG ER TAB 2021-03 2-15 00:00: 00 No NITROFUR MON 100MG 2021-03 2-15 00:00: 00 No PREDNISONE 20MG TAB 2021-03 2-15 00:00: 00 No Dose Unknown 2021-03 2-15 00:00: 00 No Dose Unknown 2021-03 2-15 00:00: 00 No SULCONAZOLE NITRATE 1% RAHEL 2021-03 2-15 00:00: 00 No TAKE 1 TABLET BY MOUTH ONCE DAILY 2021-03 2-15 00:00: 00 No TAKE 2 TABLETS BY MOUTH TWICE DAILY 2021-03 2-15 00:00: 00 No Dose Unknown 2021-03 2-15 00:00: 00 No PENTOXIFYLL I 400MG ER TAB 2021-03 2-15 00:00: 00 No INSTILL 2 DROPS INTO EACH EAR TWICE DAILY FOR INFLAMMATIO N AND FOR ITCHING 2021-03 2-15 00:00: 00 No TAKE 1 CAPSULE BY MOUTH ONCE DAILY 2021-03 2-15 00:00: 00 No VICTOZA 3'S 18MG/3ML PEN 2021-03 2-15 00:00: 00 No Dose Unknown 2021-03 00:00: 00 No TAKE 1 TABLET BY MOUTH EVERY 8 HOURS NEEDED 2021-03 00:00: 00 No APPLY SPARINGLY TO AFFECTED AREAS THREE TIMES A DAY 2021-03 00:00: 00 No TAKE 1 TABLET BY MOUTH TWICE DAILY 2021-03 00:00: 00 No Dose Unknown 2021-03 00:00: 00 No Dose Unknown 2021-03 00:00: 00 No CLOBETASOL PROPIONATE 0.05% OIN 2021-03 00:00: 00 No CETIRIZINE HYDROCHLORI DE 10MG TAB 2021-03 00:00: 00 No Dose Unknown 2021-03 00:00: 00 No TAKE 1 CAPSULE BY MOUTH TWICE DAILY 2021-03 00:00: 00 No Dose Unknown 2021-03 00:00: 00 No INSTILL 4 DROPS INTO AFFECTED EAR THREE TIMES DAILY FOR 5 DAYS 2021-03 00:00: 00 No TAKE 1 TABLET BY MOUTH TWICE DAILY WITH MEALS 2021-03 00:00: 00 No METFORMIN HYDROCHLORI DE E 1000 ER TAB 2021-03 00:00: 00 No HYDROCORT 1% RX CRE 2021-03 00:00: 00 No Dose Unknown 2021-03 00:00: 00 No APPLY OINTMENT TOPICALLY TWICE DAILY ( APPLY SPARINGLY TO AFFECTED AREA(S) ) 2021-03 00:00: 00 No RINSE MOUTH WITH 15ML (1 CAPFUL) FOR 30 SECONDS AM AND PM AFTER TOOTHBRUSHI NG. EXPECTORATE AFTER RINSING, DO NOT SWALLOW 2021-03 00:00: 00 No TAKE 1 TABLET EVERY 12 HOURS NEEDED. 2021-03 00:00: 00 No TAKE 1 TABLET DAILY. 2021-03 00:00: 00 No TAKE 1 CAPSULE TWICE DAILY. 2021-03 00:00: 00 No TAKE 1 CAPSULE 2-3 TIMES DAILY. 2021-03 00:00: 00 No TAKE 1 TABLET DAILY DIRECTED. 2021-03 00:00: 00 No TAKE 1 TABLET EVERY 12 HOURS DAILY. 2022-1 2-15 00:00: 00 No TAKE ONE TABLET TWICE A DAY 2021-03 2-15 00:00: 00 No TAKE 1 TABLET 3 TIMES DAILY NEEDED. 2021-03 2-15 00:00: 00 No TAKE 1 CAPSULE TWICE DAILY. 2021-03 2-15 00:00: 00 No TAKE 1 TABLET DAILY. 2021-03 2- 00:00: 00 No Dose Unknown 2021-03 2-15 00:00: 00 No GABAPENTIN 300MG 2021-03 2-15 00:00: 00 No Dose Unknown 2021-03 2-15 00:00: 00 No Dose Unknown 2021-03 215 00:00: 00 No Dose Unknown 2021-03 2 00:00: 00 No LOPERAMIDE HCL 2MG 2021-03 2- 00:00: 00 No Dose Unknown 2021-03 2- 00:00: 00 No Dose Unknown 2021-03 2 00:00: 00 No INSTILL 5 DROPS INTO LEFT EAR TWICE DAILY FOR 2 WEEKS 2021-03 2- 00:00: 00 No KETOCONAZOL E 2% CRE 2021-03 2 00:00: 00 No FLUOCINOLON E ACETONIDE 0.01% OIL 2021-03 2- 00:00: 00 No OMEPRAZOLE 40MG 2021-03 2- 00:00: 00 No CEPHALEXIN 500MG 2021-03 2-15 00:00: 00 No Dose Unknown 2021-03 2- 00:00: 00 No CLOBETASOL PROPIONATE 0.05% SHA 2021-03 2-15 00:00: 00 No Dose Unknown 2021-03 2-15 00:00: 00 No CLONAZEPAM 1MG TAB 2021-03 2-15 00:00: 00 No TRIAMCINOLO NE ACETONIDE 0.025% CRE 2021-03 2-15 00:00: 00 No TAKE 1 TABLET BY MOUTH ONCE DAILY 2021-03 2-15 00:00: 00 No ACYCLOVIR 5% CRE 2021-03 2-15 00:00: 00 No Dose Unknown 2021-03 2-15 00:00: 00 No LORATADINE 10MG TAB 2021-03 2-15 00:00: 00 No SIMVASTATIN 10MG TAB 2021-03 2-15 00:00: 00 No Dose Unknown 2021-03 2-15 00:00: 00 No Dose Unknown 2021-03 2-15 00:00: 00 No Dose Unknown 2021-03 2-15 00:00: 00 No KETOCONAZOL E 2% SHA 2021-03 2-15 00:00: 00 No Dose Unknown 2021-03 2-15 00:00: 00 No Dose Unknown 2021-03 2-15 00:00: 00 No ATENOLOL 100MG TAB 2021-03 2-15 00:00: 00 No Dose Unknown 2021-03 2-15 00:00: 00 No TRAZODONE HYDROCHLORI DE 50MG TAB 2021-03 2-15 00:00: 00 No IBUPROFEN 800MG TAB 2021-03 2-15 00:00: 00 No JANUVIA 100MG TAB 2021-03 2-15 00:00: 00 No TOME MENA TABLETA DOS VECES AL D A 2021-03 2-15 00:00: 00 No BUPROPION HCL 75MG TAB 2021-03 2-15 00:00: 00 No GLUMETZA 500MG TAB 2021-03 2-15 00:00: 00 No PREVALITE 4GM PKT POW 2021-03 2-15 00:00: 00 No TAKE 1 TABLET BY MOUTH EVERY 8 HOURS NEEDED 2021-03 2-15 00:00: 00 No Dose Unknown 2021-03 2-15 00:00: 00 No Dose Unknown 2021-03 2-15 00:00: 00 No Dose Unknown 2021-03 2-15 00:00: 00 No TAKE 1 TABLET BY MOUTH TWICE DAILY WITH FOOD 2021-03 2-15 00:00: 00 No Dose Unknown 2021-03 2-15 00:00: 00 No PENTOXIFYLL INE ER 400MG ER TAB 2021-03 2-15 00:00: 00 No NITROFUR MON 100MG 2021-03 2-15 00:00: 00 No PREDNISONE 20MG TAB 2021-03 2-15 00:00: 00 No Dose Unknown 2021-03 2-15 00:00: 00 No NAPROXEN 500MG TAB 2021-03 1-12 00:00: 00 No NAPROXEN 500MG TAB 2021-03 1-12 00:00: 00 No NAPROXEN 500MG TAB 2021-03 1-12 00:00: 00 No APPLY SPARINGLY TO AFFECTED AREA(S) TWICE DAILY 2021-03 00:00: 00 No APPLY SPARINGLY TO AFFECTED AREA(S) TWICE DAILY 2021-03 00:00: 00 No APPLY SPARINGLY TO AFFECTED AREA(S) TWICE DAILY 2021-03 00:00: 00 No APPLY SPARINGLY TO AFFECTED AREA(S) TWICE DAILY 2021-03 00:00: 00 No Dose Unknown 2021-03 00:00: 00 No TAKE 1 CAPSULE TWICE DAILY. 2021-03 00:00: 00 No 100 AZATHIOPRIN E 50MG TAB 2021-03 00:00: 00 No TAKE 1 CAPSULE TWICE DAILY. 2021-03 00:00: 00 No SULFAMETHOX AZOLE/TRIME THO 800-160 TAB 2021-03 00:00: 00 No AZATHIOPRIN E 50MG TAB 2021-03 00:00: 00 No TAKE 1 CAPSULE TWICE DAILY. 2021-03 00:00: 00 No SULFAMETHOX AZOLE/TRIME THO 800-160 TAB 2021-03 00:00: 00 No AZATHIOPRIN E 50MG TAB 2021-03 00:00: 00 No TAKE 1 CAPSULE TWICE DAILY. 2021-03 00:00: 00 No SULFAMETHOX AZOLE/TRIME THO 800-160 TAB 2021-03 00:00: 00 No AZATHIOPRIN E 50MG TAB 2021-03 00:00: 00 No PREDNISONE 50MG TAB 2021-03 00:00: 00 No Dose Unknown 2021-03 00:00: 00 No TAKE 1 TABLET BY MOUTH TWICE DAILY FOR 5 DAYS THEN DECREASE TO 1 TABLET ONCE DAILY FOR 5 DAYS. THEN 0.5 (HALF) A TABLET FOR 5 DAYS START WITH PREDNISODE 50 MG, THEN 10 MG TABLETS 2021-03 00:00: 00 No TAKE 1 TABLET BY MOUTH TWICE DAILY FOR 5 DAYS THEN DECREASE TO 1 TABLET ONCE DAILY FOR 5 DAYS. THEN 0.5 (HALF) A TABLET FOR 5 DAYS START WITH PREDNISODE 50 MG, THEN 10 MG TABLETS 2021-03 00:00: 00 No OMEPRAZOLE 40MG CAP 2021-03 00:00: 00 No TAKE 1 TABLET DAILY. 2021-03 00:00: 00 No 10 OMEPRAZOLE 40MG CAP 2021-03 00:00: 00 No Dose Unknown 2021-03 00:00: 00 No OMEPRAZOLE 40MG CAP 2021-03 00:00: 00 No Dose Unknown 2021-03 00:00: 00 No OMEPRAZOLE 40MG CAP 2021-03 00:00: 00 No Dose Unknown 2021-03 00:00: 00 No TAKE 1 TABLET BY MOUTH ONCE DAILY DIRECTED 2021-03 00:00: 00 No 100 TAKE 1 TABLET BY MOUTH ONCE DAILY DIRECTED 2021-03 00:00: 00 No TAKE 1 TABLET BY MOUTH ONCE DAILY DIRECTED 2021-03 00:00: 00 No TAKE 1 TABLET BY MOUTH ONCE DAILY DIRECTED 2021-03 00:00: [address] 75MG EC TAB 2021-03 0-27 00:00: [address] 75MG EC TAB 2021-03 027 00:00: [address] 75MG EC TAB 2021-03 0-27 00:00: [address] 75MG EC TAB 2021-03 0-27 00:00: 00 No CLOBETASOL PROPIONATE 0.05% RAHEL 2021-03 0-24 00:00: 00 No METFORMIN HYDROCHLORI DE E 1000MG F TAB 2021-03 0-24 00:00: 00 No CLOBETASOL PROPIONATE 0.05% RAHEL 2021-03 0-24 00:00: 00 No METFORMIN HYDROCHLORI DE E 1000MG F TAB 2021-03 0-24 00:00: 00 No CLOBETASOL PROPIONATE 0.05% RAHEL 2021-03 0-24 00:00: 00 No METFORMIN HYDROCHLORI DE E 1000MG F TAB 2021-03 0-24 00:00: 00 No CLOBETASOL PROPIONATE 0.05% RAHEL 2021-03 0-24 00:00: 00 No METFORMIN HYDROCHLORI DE E 1000MG F TAB 2021-03 0-24 00:00: 00 No CLOBETASOL PROPIONATE 0.05% RAHEL 2021-03 0-24 00:00: 00 No METFORMIN HYDROCHLORI DE E 1000MG F TAB 2021- 0-24 00:00: 00 No Dose Unknown 2021- 0-10 00:00: 00 No TAKE 1 TABLET BY MOUTH TWICE DAILY 2021-1 0-10 00:00: 00 No 4 Dose Unknown 2021- 0-10 00:00: 00 No TAKE 1 TABLET BY MOUTH TWICE DAILY 2021- 0-10 00:00: 00 No 4 METFORMIN HYDROCHLORI DE 1000MG TAB 2021- 0-10 00:00: 00 No GLIMEPIRIDE 4MG TAB 2021- 0-10 00:00: 00 No METFORMIN HYDROCHLORI DE 1000MG TAB 2021- 0-10 00:00: 00 No GLIMEPIRIDE 4MG TAB 2021- 0-10 00:00: 00 No METFORMIN HYDROCHLORI DE 1000MG TAB 2021- 0-10 00:00: 00 No GLIMEPIRIDE 4MG TAB 2021- 0-10 00:00: 00 No TAKE 1 TABLET BY MOUTH ONCE DAILY 2021- 0-03 00:00: 00 No Dose Unknown 2021- 0-03 00:00: 00 No MUPIROCIN 2% OIN 2021-1 0-03 00:00: 00 No ATENOLOL 50MG TAB 2021-1 0-03 00:00: 00 No Dose Unknown 2021- 0-03 00:00: 00 No TAKE 1 TABLET BY MOUTH ONCE DAILY 2021- 0-03 00:00: 00 No Dose Unknown 2021- 0-03 00:00: 00 No MUPIROCIN 2% OIN 2021-1 0-03 00:00: 00 No ATENOLOL 50MG TAB 2021-1 0-03 00:00: 00 No Dose Unknown 2021-1 0-03 00:00: 00 No TAKE 1 TABLET BY MOUTH ONCE DAILY 2021-1 0-03 00:00: 00 No NYSTOP TOPICAL POW 2021- 0-03 00:00: 00 No MUPIROCIN 2% OIN 2021- 0-03 00:00: 00 No ATENOLOL 50MG TAB 2021-1 0-03 00:00: 00 No Dose Unknown 2021- 0-03 00:00: 00 No TAKE 1 TABLET BY MOUTH ONCE DAILY 2021-03 0-03 00:00: 00 No NYSTOP TOPICAL POW 2021-03 0-03 00:00: 00 No MUPIROCIN 2% OIN 2021-03 0-03 00:00: 00 No TAKE 1 TABLET BY MOUTH ONCE DAILY 2021-03 0-03 00:00: 00 No TRAZODONE HYDROCHLORI DE 100MG TAB 2021-03 0-03 00:00: 00 No TAKE 1 TABLET BY MOUTH ONCE DAILY 2021-03 0-03 00:00: 00 No NYSTOP TOPICAL POW 2021-03 0-03 00:00: 00 No MUPIROCIN 2% OIN 2021-03 0-03 00:00: 00 No TAKE 1 TABLET BY MOUTH ONCE DAILY 2021-03 0-03 00:00: 00 No TRAZODONE HYDROCHLORI DE 100MG TAB 2021-03 0-03 00:00: 00 No TAKE 1 TABLET BY MOUTH ONCE DAILY 2021-03 0-03 00:00: 00 No NYSTOP TOPICAL POW 2021-03 0-03 00:00: 00 No MUPIROCIN 2% OIN 2021-03 0-03 00:00: 00 No TAKE 1 TABLET BY MOUTH ONCE DAILY 2021-03 0-03 00:00: 00 No TRAZODONE HYDROCHLORI DE 100MG TAB 2021-03 0-03 00:00: 00 No SERTRALINE HCL 50MG TAB 2021-0 12-13 00:00: 00 No SERTRALINE HCL 50MG TAB 2021-0 - 00:00: 00 No SERTRALINE HCL 50MG TAB 2-0 - 00:00: 00 No SERTRALINE HCL 50MG TAB 2021-0 - 00:00: 00 No SERTRALINE HCL 50MG TAB 2021-0 - 00:00: 00 No SERTRALINE HCL 50MG TAB 2-0 - 00:00: 00 No ZOVIRAX 5% CRE 12-05 00:00: 00 No ATORVASTATI N CALCIUM 10MG TAB 0 12-05 00:00: 00 No 10 TAKE 1 TABLET TWICE DAILY WITH FOOD. 12-05 00:00: 00 No APPLY SPARINGLY TO AFFECTED AREA(S) TWICE DAILY 12-05 00:00: 00 No ZOVIRAX 5% CRE 0 12-05 00:00: 00 No ATORVASTATI N CALCIUM 10MG TAB 0 12-05 00:00: 00 No 10 TAKE 1 TABLET TWICE DAILY WITH FOOD. 0 12-05 00:00: 00 No APPLY SPARINGLY TO AFFECTED AREA(S) TWICE DAILY 0 12-05 00:00: 00 No ZOVIRAX 5% CRE 0 12-05 00:00: 00 No ATORVASTATI N CALCIUM 10MG TAB 0 12-05 00:00: 00 No 10 TAKE 1 TABLET TWICE DAILY WITH FOOD. 0 12-05 00:00: 00 No APPLY SPARINGLY TO AFFECTED AREA(S) TWICE DAILY 0 12-05 00:00: 00 No ZOVIRAX 5% CRE 0 12-05 00:00: 00 No ATORVASTATI N CALCIUM 10MG TAB 0 12-05 00:00: 00 No 10 TAKE 1 TABLET TWICE DAILY WITH FOOD. 0 12-05 00:00: 00 No APPLY SPARINGLY TO AFFECTED AREA(S) TWICE DAILY 0 12-05 00:00: 00 No ZOVIRAX 5% CRE 0 12-05 00:00: 00 No ATORVASTATI N CALCIUM 10MG TAB 0 12-05 00:00: 00 No 10 TAKE 1 TABLET TWICE DAILY WITH FOOD. 0 12-05 00:00: 00 No APPLY SPARINGLY TO AFFECTED AREA(S) TWICE DAILY 0 12-05 00:00: 00 No TAKE 1 TABLET TWICE DAILY WITH FOOD. 0 12-05 00:00: 00 No ZOVIRAX 5% CRE 0 12-05 00:00: 00 No Dose Unknown 0 12-05 00:00: 00 No APPLY SPARINGLY TO AFFECTED AREA(S) TWICE DAILY 0 12-05 00:00: 00 No TAKE 1 TABLET TWICE DAILY WITH FOOD. 0 12-05 00:00: 00 No ZOVIRAX 5% CRE 0 12-05 00:00: 00 No Dose Unknown 0 12-05 00:00: 00 No APPLY SPARINGLY TO AFFECTED AREA(S) TWICE DAILY 0 12-05 00:00: 00 No TAKE 1 TABLET TWICE DAILY WITH FOOD. 0 12-05 00:00: 00 No ZOVIRAX 5% CRE 2021-0 12-05 00:00: 00 No Dose Unknown 0 12-05 00:00: 00 No APPLY SPARINGLY TO AFFECTED AREA(S) TWICE DAILY 2021-0 12-05 00:00: 00 No CLOBETASOL PROPIONATE 0.05% CRE 2-0 8 00:00: 00 No CLOBETASOL PROPIONATE 0.05% CRE 2-0 11-12 00:00: 00 No CLOBETASOL PROPIONATE 0.05% CRE 2-0 11-12 00:00: 00 No CLOBETASOL PROPIONATE 0.05% CRE 2-0 11-12 00:00: 00 No CLOBETASOL PROPIONATE 0.05% CRE 2021-0 11-12 00:00: 00 No CLOBETASOL PROPIONATE 0.05% CRE 2-0 11-12 00:00: 00 No CLOBETASOL PROPIONATE 0.05% CRE 2-0 11-12 00:00: 00 No CLOBETASOL PROPIONATE 0.05% CRE 2-0 11-12 00:00: 00 No Dose Unknown 2021-0 11-05 00:00: 00 No Dose Unknown 2021-0 11-05 00:00: 00 No Dose Unknown 0 11-05 00:00: 00 No Dose Unknown 0 11-05 00:00: 00 No Dose Unknown 2021-0 11-05 00:00: 00 No Dose Unknown 2021-0 11-05 00:00: 00 No Dose Unknown 2021-0 11-05 00:00: 00 No Dose Unknown 2021-0 11-05 00:00: 00 No TAKE ONE TABLET TWICE A DAY 2021-0 11-01 00:00: 00 No 50 TAKE ONE TABLET TWICE A DAY 2021-0 11-01 00:00: 00 No 50 TAKE ONE TABLET TWICE A DAY 2021-0 11-01 00:00: 00 No 50 Dose Unknown 2021-0 8 00:00: 00 No TAKE 1 TABLET DAILY. 2021-0 11-01 00:00: 00 No TAKE 1 TABLET DAILY. 2021-0 8-18 00:00: 00 No TAKE ONE TABLET TWICE A DAY 2022-0 8-18 00:00: 00 No TAKE ONE TABLET TWICE A DAY 2022-0 8-18 00:00: 00 No TAKE ONE TABLET TWICE A DAY 2022-0 8-18 00:00: 00 No TAKE 1 TABLET DAILY. 2022-0 8-16 00:00: 00 No 10 &lt 2022-0 8-16 00:00: 00 No TAKE 1 TABLET DAILY. 2-0 8-16 00:00: 00 No 10 &lt 2022-0 8-16 00:00: 00 No TAKE 1 TABLET DAILY. 2-0 8-16 00:00: 00 No 10 &lt 2022-0 8-16 00:00: 00 No TAKE 1 TABLET DAILY. 2021-0 8-16 00:00: 00 No 10 &lt 2022-0 8-16 00:00: 00 No TAKE 1 TABLET DAILY. 2-0 8-16 00:00: 00 No 10 &lt 2022-0 8-16 00:00: 00 No TAKE 1 TABLET DAILY. 2021-0 8-16 00:00: 00 No 10 &lt 2022-0 8-16 00:00: 00 No TAKE 1 TABLET DAILY. 2021-0 8-16 00:00: 00 No 10 &lt 2022-0 8-16 00:00: 00 No TAKE 1 TABLET DAILY. 2-0 8-16 00:00: 00 No 10 &lt 2022-0 8-16 00:00: 00 No TAKE 1 TABLET DAILY. 2-0 8-16 00:00: 00 No 10 &lt 2022-0 8-16 00:00: 00 No Dose Unknown 2022-0 8-08 00:00: 00 No 50 &lt 2022-0 8-08 00:00: 00 No 100 &lt 2022-0 8-08 00:00: 00 No 400 Dose Unknown 2022-0 8-08 00:00: 00 No 50 &lt 2022-0 8-08 00:00: 00 No 100 &lt 2022-0 8-08 00:00: 00 No 400 Dose Unknown 2022-0 8-08 00:00: 00 No 50 &lt 2022-0 8-08 00:00: 00 No 100 &lt 2022-0 8-08 00:00: 00 No 400 Dose Unknown 2022-0 8-08 00:00: 00 No 50 &lt 2022-0 8-08 00:00: 00 No 100 &lt 2022-0 8-08 00:00: 00 No 400 Dose Unknown 2022-0 8-08 00:00: 00 No 50 &lt 2022-0 8-08 00:00: 00 No 100 &lt 2022-0 8-08 00:00: 00 No 400 Dose Unknown 2022-0 8-08 00:00: 00 No 50 &lt 2022-0 8-08 00:00: 00 No 100 &lt 2022-0 8-08 00:00: 00 No 400 Dose Unknown 2022-0 8-08 00:00: 00 No 50 &lt 2022-0 8-08 00:00: 00 No 100 &lt 2022-0 8-08 00:00: 00 No 400 Dose Unknown 2022-0 8-08 00:00: 00 No 50 &lt 2022-0 8-08 00:00: 00 No 100 &lt 2022-0 8-08 00:00: 00 No 400 Dose Unknown 2022-0 8-08 00:00: 00 No 50 &lt 2022-0 8-08 00:00: 00 No 100 &lt 2022-0 8-08 00:00: 00 No 400 &lt 2022-0 8-03 00:00: 00 No 800 &lt 2022-0 8-03 00:00: 00 No &lt 2022-0 8-03 00:00: 00 No 25 &lt 2022-0 8-03 00:00: 00 No 10 &lt 2022-0 8-03 00:00: 00 No &lt 2022-0 8-03 00:00: 00 No 800 &lt 2022-0 8-03 00:00: 00 No &lt 2022-0 8-03 00:00: 00 No 25 &lt 2022-0 8-03 00:00: 00 No 10 &lt 2022-0 8-03 00:00: 00 No &lt 2022-0 8-03 00:00: 00 No 800 &lt 2022-0 8-03 00:00: 00 No &lt 2022-0 8-03 00:00: 00 No 25 &lt 2022-0 8-03 00:00: 00 No 10 &lt 2022-0 8-03 00:00: 00 No &lt 2022-0 8-03 00:00: 00 No 800 &lt 2022-0 8-03 00:00: 00 No &lt 2022-0 8-03 00:00: 00 No 25 &lt 2022-0 8-03 00:00: 00 No 10 &lt 2022-0 8-03 00:00: 00 No &lt 2022-0 8-03 00:00: 00 No 800 &lt 2022-0 8-03 00:00: 00 No &lt 2022-0 8-03 00:00: 00 No 25 &lt 2022-0 8-03 00:00: 00 No 10 &lt 2022-0 8-03 00:00: 00 No &lt 2022-0 8-03 00:00: 00 No 800 &lt 2022-0 8-03 00:00: 00 No &lt 2022-0 8-03 00:00: 00 No 25 &lt 2022-0 8-03 00:00: 00 No 10 &lt 2022-0 8-03 00:00: 00 No &lt 2022-0 8-03 00:00: 00 No 800 &lt 2022-0 8-03 00:00: 00 No &lt 2022-0 8-03 00:00: 00 No 25 &lt 2022-0 8-03 00:00: 00 No 10 &lt 2022-0 8-03 00:00: 00 No &lt 2022-0 8-03 00:00: 00 No 800 &lt 2022-0 8-03 00:00: 00 No &lt 2022-0 8-03 00:00: 00 No 25 &lt 2022-0 8-03 00:00: 00 No 10 &lt 2022-0 8-03 00:00: 00 No &lt 2022-0 8-03 00:00: 00 No 800 &lt 2022-0 8-03 00:00: 00 No &lt 2022-0 8-03 00:00: 00 No 25 &lt 2022-0 8-03 00:00: 00 No 10 &lt 2022-0 8- 00:00: 00 No Dose Unknown 2022-0 8- 00:00: 00 No 50 &lt 2022-0 8- 00:00: 00 No 75 &lt 2022-0 8- 00:00: 00 No &lt 2022-0 8- 00:00: 00 No 50 Dose Unknown 2022-0 8 00:00: 00 No 4 TAKE 1 CAPSULE TWICE DAILY. 2022-0 8- 00:00: 00 No 250 &lt 2022-0 8- 00:00: 00 No Dose Unknown 2022-0 8- 00:00: 00 No 50 &lt 2022-0 8- 00:00: 00 No 75 &lt 2022-0 8- 00:00: 00 No &lt 2022-0 8- 00:00: 00 No 50 Dose Unknown 2022-0 8- 00:00: 00 No 4 TAKE 1 CAPSULE TWICE DAILY. 2-0 8 00:00: 00 No 250 &lt 2022-0 8- 00:00: 00 No Dose Unknown 2022-0 8- 00:00: 00 No 50 &lt 2022-0 8- 00:00: 00 No 75 &lt 2022-0 8- 00:00: 00 No &lt 2022-0 8- 00:00: 00 No 50 Dose Unknown 2022-0 8 00:00: 00 No 4 TAKE 1 CAPSULE TWICE DAILY. 2022-0 8 00:00: 00 No 250 &lt 2022-0 8- 00:00: 00 No Dose Unknown 2022-0 8- 00:00: 00 No 50 &lt 2022-0 8- 00:00: 00 No 75 &lt 2022-0 8- 00:00: 00 No &lt 2022-0 8- 00:00: 00 No 50 Dose Unknown 2022-0 8- 00:00: 00 No 4 TAKE 1 CAPSULE TWICE DAILY. 2-0 8- 00:00: 00 No 250 &lt 2022-0 8- 00:00: 00 No Dose Unknown 2022-0 8- 00:00: 00 No 50 &lt 2022-0 8- 00:00: 00 No 75 &lt 2022-0 8- 00:00: 00 No &lt 2022-0 8- 00:00: 00 No 50 Dose Unknown 2022-0 8 00:00: 00 No 4 TAKE 1 CAPSULE TWICE DAILY. 2022-0 8- 00:00: 00 No 250 &lt 2022-0 8- 00:00: 00 No Dose Unknown 2022-0 8 00:00: 00 No 50 &lt 2022-0 8- 00:00: 00 No 75 &lt 2022-0 8- 00:00: 00 No &lt 2022-0 8- 00:00: 00 No 50 Dose Unknown 2022-0 8 00:00: 00 No 4 TAKE 1 CAPSULE TWICE DAILY. 2-0 8 00:00: 00 No 250 &lt 2022-0 8- 00:00: 00 No Dose Unknown 2022-0 8 00:00: 00 No 50 &lt 2022-0 8- 00:00: 00 No 75 &lt 2022-0 8- 00:00: 00 No &lt 2022-0 8- 00:00: 00 No 50 Dose Unknown 2022-0 8 00:00: 00 No 4 TAKE 1 CAPSULE TWICE DAILY. 2-0 8 00:00: 00 No 250 &lt 2022-0 8 00:00: 00 No Dose Unknown 2-0 8 00:00: 00 No 50 &lt 2022-0 8- 00:00: 00 No 75 &lt 2022-0 8- 00:00: 00 No &lt 2022-0 8 00:00: 00 No 50 Dose Unknown 2022-0 8 00:00: 00 No 4 TAKE 1 CAPSULE TWICE DAILY. 2-0 8 00:00: 00 No 250 &lt 2022-0 8- 00:00: 00 No Dose Unknown 2022-0 8 00:00: 00 No 50 &lt 2022-0 8- 00:00: 00 No 75 &lt 2022-0 8- 00:00: 00 No &lt 2022-0 8- 00:00: 00 No 50 Dose Unknown 2022-0 8- 00:00: 00 No 4 TAKE 1 CAPSULE TWICE DAILY. 2022-0 8-02 00:00: 00 No 250 &lt 2022-0 8-02 00:00: 00 No &lt 2022-0 8- 00:00: 00 No 800 Dose Unknown 2022-0 8- 00:00: 00 No 10 &lt 2022-0 8- 00:00: 00 No 50 &lt 2022-0 8- 00:00: 00 No Dose Unknown 2022-0 8- 00:00: 00 No TAKE 1 CAPSULE TWICE DAILY. 2022-0 8-01 00:00: 00 No 250 &lt 2022-0 8- 00:00: 00 No 50 &lt 2022-0 8- 00:00: 00 No 4 APPLY SPARINGLY TO AFFECTED AREAS TWICE A DAY 2022-0 8- 00:00: 00 No Dose Unknown 2022-0 8- 00:00: 00 No Dose Unknown 2022-0 8- 00:00: 00 No &lt 2022-0 8- 00:00: 00 No 10 &lt 2022-0 8- 00:00: 00 No 800 Dose Unknown 2022-0 8- 00:00: 00 No 10 &lt 2022-0 8- 00:00: 00 No 50 &lt 2022-0 8- 00:00: 00 No Dose Unknown 2022-0 8- 00:00: 00 No TAKE 1 CAPSULE TWICE DAILY. 2022-0 8- 00:00: 00 No 250 &lt 2022-0 8- 00:00: 00 No 50 &lt 2022-0 8- 00:00: 00 No 4 APPLY SPARINGLY TO AFFECTED AREAS TWICE A DAY 2022-0 8- 00:00: 00 No Dose Unknown 2022-0 8- 00:00: 00 No Dose Unknown 2022-0 8- 00:00: 00 No &lt 2022-0 8- 00:00: 00 No 10 &lt 2022-0 8- 00:00: 00 No 800 Dose Unknown 2022-0 8- 00:00: 00 No 10 &lt 2022-0 8- 00:00: 00 No 50 &lt 2022-0 8- 00:00: 00 No Dose Unknown 2022-0 8- 00:00: 00 No TAKE 1 CAPSULE TWICE DAILY. 2022-0 8- 00:00: 00 No 250 &lt 2022-0 8- 00:00: 00 No 50 &lt 2022-0 8-01 00:00: 00 No 4 APPLY SPARINGLY TO AFFECTED AREAS TWICE A DAY 2022-0 8- 00:00: 00 No Dose Unknown 2022-0 8- 00:00: 00 No Dose Unknown 2022-0 8- 00:00: 00 No &lt 2022-0 8- 00:00: 00 No 10 &lt 2022-0 8- 00:00: 00 No 800 Dose Unknown 2022-0 8- 00:00: 00 No 10 &lt 2022-0 8- 00:00: 00 No 50 &lt 2022-0 8- 00:00: 00 No Dose Unknown 2022-0 8- 00:00: 00 No TAKE 1 CAPSULE TWICE DAILY. 2022-0 8- 00:00: 00 No 250 &lt 2022-0 8- 00:00: 00 No 50 &lt 2022-0 8- 00:00: 00 No 4 APPLY SPARINGLY TO AFFECTED AREAS TWICE A DAY 2022-0 8- 00:00: 00 No Dose Unknown 2022-0 8- 00:00: 00 No Dose Unknown 2022-0 8- 00:00: 00 No &lt 2022-0 8- 00:00: 00 No 10 &lt 2022-0 8- 00:00: 00 No 800 Dose Unknown 2022-0 8- 00:00: 00 No 10 &lt 2022-0 8- 00:00: 00 No 50 &lt 2022-0 8- 00:00: 00 No Dose Unknown 2022-0 8- 00:00: 00 No TAKE 1 CAPSULE TWICE DAILY. 2022-0 8- 00:00: 00 No 250 &lt 2022-0 8- 00:00: 00 No 50 &lt 2022-0 8- 00:00: 00 No 4 APPLY SPARINGLY TO AFFECTED AREAS TWICE A DAY 2022-0 8- 00:00: 00 No Dose Unknown 2022-0 8- 00:00: 00 No Dose Unknown 2022-0 8-01 00:00: 00 No &lt 2022-0 8-01 00:00: 00 No 10 &lt 2022-0 8-01 00:00: 00 No 800 Dose Unknown 2022-0 8-01 00:00: 00 No 10 &lt 2022-0 8-01 00:00: 00 No 50 &lt 2022-0 8-01 00:00: 00 No Dose Unknown 2022-0 8- 00:00: 00 No TAKE 1 CAPSULE TWICE DAILY. 2022-0 8-01 00:00: 00 No 250 &lt 2022-0 8-01 00:00: 00 No 50 &lt 2022-0 8-01 00:00: 00 No 4 APPLY SPARINGLY TO AFFECTED AREAS TWICE A DAY 2022-0 8- 00:00: 00 No Dose Unknown 2022-0 8- 00:00: 00 No Dose Unknown 2022-0 8- 00:00: 00 No &lt 2022-0 8- 00:00: 00 No 10 &lt 2022-0 8- 00:00: 00 No 800 Dose Unknown 2022-0 8- 00:00: 00 No 10 &lt 2022-0 8- 00:00: 00 No 50 &lt 2022-0 8- 00:00: 00 No Dose Unknown 2022-0 8- 00:00: 00 No TAKE 1 CAPSULE TWICE DAILY. 2022-0 8- 00:00: 00 No 250 &lt 2022-0 8- 00:00: 00 No 50 &lt 2022-0 8- 00:00: 00 No 4 APPLY SPARINGLY TO AFFECTED AREAS TWICE A DAY 2022-0 8- 00:00: 00 No Dose Unknown 2022-0 8- 00:00: 00 No Dose Unknown 2022-0 8- 00:00: 00 No &lt 2022-0 8- 00:00: 00 No 10 &lt 2022-0 8-01 00:00: 00 No 800 Dose Unknown 2022-0 8- 00:00: 00 No 10 &lt 2022-0 8- 00:00: 00 No 50 &lt 2022-0 8- 00:00: 00 No Dose Unknown 2022-0 8- 00:00: 00 No TAKE 1 CAPSULE TWICE DAILY. 2022-0 8-01 00:00: 00 No 250 &lt 2022-0 8- 00:00: 00 No 50 &lt 2022-0 8-01 00:00: 00 No 4 APPLY SPARINGLY TO AFFECTED AREAS TWICE A DAY 2022-0 8-01 00:00: 00 No Dose Unknown 2022-0 8- 00:00: 00 No Dose Unknown 2022-0 8- 00:00: 00 No &lt 2022-0 8- 00:00: 00 No 10 &lt 2022-0 8- 00:00: 00 No 800 Dose Unknown 2022-0 8- 00:00: 00 No 10 &lt 2022-0 8- 00:00: 00 No 50 &lt 2022-0 8- 00:00: 00 No Dose Unknown 2022-0 8- 00:00: 00 No TAKE 1 CAPSULE TWICE DAILY. 2022-0 8- 00:00: 00 No 250 &lt 2022-0 8- 00:00: 00 No 50 &lt 2022-0 8- 00:00: 00 No 4 APPLY SPARINGLY TO AFFECTED AREAS TWICE A DAY 2022-0 8- 00:00: 00 No Dose Unknown 2022-0 8- 00:00: 00 No Dose Unknown 2022-0 8- 00:00: 00 No &lt 2022-0 8- 00:00: 00 No 10 &lt 2022-0 8- 00:00: 00 No 800 Dose Unknown 2022-0 8- 00:00: 00 No 10 &lt 2022-0 8- 00:00: 00 No 50 &lt 2022-0 8- 00:00: 00 No Dose Unknown 2022-0 8- 00:00: 00 No TAKE 1 CAPSULE TWICE DAILY. 2022-0 8- 00:00: 00 No 250 &lt 2022-0 8- 00:00: 00 No 50 &lt 2022-0 8- 00:00: 00 No 4 APPLY SPARINGLY TO AFFECTED AREAS TWICE A DAY 2022-0 8- 00:00: 00 No Dose Unknown 2022-0 8- 00:00: 00 No Dose Unknown 2022-0 8- 00:00: 00 No &lt 2022-0 8- 00:00: 00 No 10 TAKE 1 CAPSULE TWICE DAILY. 2021-0 10-05 00:00: 00 No 250 &lt 2022-0 10-05 00:00: 00 No 4 TAKE 1 CAPSULE TWICE DAILY. 0 10-05 00:00: 00 No 250 &lt 2022-0 10-05 00:00: 00 No 4 TAKE 1 CAPSULE TWICE DAILY. 0 10-05 00:00: 00 No 250 &lt 2022-0 10-05 00:00: 00 No 4 TAKE 1 CAPSULE TWICE DAILY. 0 10-05 00:00: 00 No 250 &lt 2022-0 10-05 00:00: 00 No 4 TAKE 1 CAPSULE TWICE DAILY. 0 10-05 00:00: 00 No 250 &lt 2022-0 10-05 00:00: 00 No 4 TAKE 1 CAPSULE TWICE DAILY. 0 10-05 00:00: 00 No 250 &lt 2022-0 10-05 00:00: 00 No 4 TAKE 1 CAPSULE TWICE DAILY. 0 10-05 00:00: 00 No 250 &lt 2022-0 10-05 00:00: 00 No 4 TAKE 1 CAPSULE TWICE DAILY. 0 10-05 00:00: 00 No 250 &lt 2022-0 10-05 00:00: 00 No 4 TAKE 1 CAPSULE TWICE DAILY. 0 10-05 00:00: 00 No 250 &lt 2022-0 10-05 00:00: 00 No 4 TAKE 1 CAPSULE TWICE DAILY. 0 10-05 00:00: 00 No 250 &lt 2022-0 10-05 00:00: 00 No 4 &lt 2022-0 10-03 00:00: 00 No 100 &lt 2022-0 10-03 00:00: 00 No &lt 2022-0 10-03 00:00: 00 No 50 Dose Unknown 2-0 10-03 00:00: 00 No 50 &lt 2022-0 7 00:00: 00 No &lt 2022-0 7 00:00: 00 No &lt 2022-0 7 00:00: 00 No &lt 2022-0 7 00:00: 00 No 500 Dose Unknown 2-0 7-20 00:00: 00 No 10 &lt 2022-0 7-20 00:00: 00 No 100 &lt 2022-0 7-20 00:00: 00 No &lt 2022-0 7-20 00:00: 00 No 50 Dose Unknown 2022-0 7-20 00:00: 00 No 50 &lt 2022-0 7-20 00:00: 00 No &lt 2022-0 7-20 00:00: 00 No &lt 2022-0 7-20 00:00: 00 No &lt 2022-0 7-20 00:00: 00 No 500 Dose Unknown 2022-0 7-20 00:00: 00 No 10 &lt 2022-0 7-20 00:00: 00 No 100 &lt 2022-0 7-20 00:00: 00 No &lt 2022-0 7-20 00:00: 00 No 50 Dose Unknown 2022-0 7-20 00:00: 00 No 50 &lt 2022-0 7-20 00:00: 00 No &lt 2022-0 7-20 00:00: 00 No &lt 2022-0 7-20 00:00: 00 No &lt 2022-0 7-20 00:00: 00 No 500 Dose Unknown 2022-0 7-20 00:00: 00 No 10 &lt 2022-0 7-20 00:00: 00 No 100 &lt 2022-0 7-20 00:00: 00 No &lt 2022-0 7-20 00:00: 00 No 50 Dose Unknown 2022-0 7-20 00:00: 00 No 50 &lt 2022-0 7-20 00:00: 00 No &lt 2022-0 7-20 00:00: 00 No &lt 2022-0 7-20 00:00: 00 No &lt 2022-0 7-20 00:00: 00 No 500 Dose Unknown 2022-0 7-20 00:00: 00 No 10 &lt 2022-0 7-20 00:00: 00 No 100 &lt 2022-0 7-20 00:00: 00 No &lt 2022-0 7-20 00:00: 00 No 50 Dose Unknown 2022-0 7-20 00:00: 00 No 50 &lt 2022-0 7-20 00:00: 00 No &lt 2022-0 7-20 00:00: 00 No &lt 2022-0 7-20 00:00: 00 No &lt 2022-0 7-20 00:00: 00 No 500 Dose Unknown 2022-0 7-20 00:00: 00 No 10 &lt 2022-0 7-20 00:00: 00 No 100 &lt 2022-0 7-20 00:00: 00 No &lt 2022-0 7-20 00:00: 00 No 50 Dose Unknown 2022-0 7-20 00:00: 00 No 50 &lt 2022-0 7-20 00:00: 00 No &lt 2022-0 7-20 00:00: 00 No &lt 2022-0 7-20 00:00: 00 No &lt 2022-0 7-20 00:00: 00 No 500 Dose Unknown 2022-0 7-20 00:00: 00 No 10 &lt 2022-0 7-20 00:00: 00 No 100 &lt 2022-0 7-20 00:00: 00 No &lt 2022-0 7-20 00:00: 00 No 50 Dose Unknown 2022-0 7-20 00:00: 00 No 50 &lt 2022-0 7-20 00:00: 00 No &lt 2022-0 7-20 00:00: 00 No &lt 2022-0 7-20 00:00: 00 No &lt 2022-0 7-20 00:00: 00 No 500 Dose Unknown 2022-0 7-20 00:00: 00 No 10 &lt 2022-0 7-20 00:00: 00 No 100 &lt 2022-0 7-20 00:00: 00 No &lt 2022-0 7-20 00:00: 00 No 50 Dose Unknown 2022-0 7-20 00:00: 00 No 50 &lt 2022-0 7-20 00:00: 00 No &lt 2022-0 7-20 00:00: 00 No &lt 2022-0 7-20 00:00: 00 No &lt 2022-0 7-20 00:00: 00 No 500 Dose Unknown 2022-0 7-20 00:00: 00 No 10 &lt 2022-0 7-20 00:00: 00 No 100 &lt 2022-0 7-20 00:00: 00 No &lt 2022-0 7-20 00:00: 00 No 50 Dose Unknown 2022-0 7-20 00:00: 00 No 50 &lt 2022-0 7-20 00:00: 00 No &lt 2022-0 7-20 00:00: 00 No &lt 2022-0 7-20 00:00: 00 No &lt 2022-0 7-20 00:00: 00 No 500 Dose Unknown 2022-0 7-20 00:00: 00 No 10 &lt 2022-0 7-20 00:00: 00 No 100 &lt 2022-0 7-20 00:00: 00 No &lt 2022-0 7-20 00:00: 00 No 50 Dose Unknown 2022-0 7-20 00:00: 00 No 50 &lt 2022-0 7-20 00:00: 00 No &lt 2022-0 7-20 00:00: 00 No &lt 2022-0 7-20 00:00: 00 No &lt 2022-0 7-20 00:00: 00 No 500 Dose Unknown 2022-0 7-20 00:00: 00 No 10 &lt 2022-0 7-20 00:00: 00 No 100 &lt 2022-0 7-20 00:00: 00 No &lt 2022-0 7-20 00:00: 00 No 50 Dose Unknown 2022-0 7-20 00:00: 00 No 50 &lt 2022-0 7-20 00:00: 00 No &lt 2022-0 7-20 00:00: 00 No &lt 2022-0 7-20 00:00: 00 No &lt 2022-0 7-20 00:00: 00 No 500 Dose Unknown 2022-0 7-20 00:00: 00 No 10 TAKE 1 TABLET TWICE DAILY. 2022-0 7-15 00:00: 00 No 4 Dose Unknown 2022-0 7-15 00:00: 00 No TAKE 1 TABLET TWICE DAILY. 2022-0 7-15 00:00: 00 No 4 Dose Unknown 2022-0 7-15 00:00: 00 No TAKE 1 TABLET TWICE DAILY. 2022-0 7-15 00:00: 00 No 4 Dose Unknown 2022-0 7-15 00:00: 00 No TAKE 1 TABLET TWICE DAILY. 0 09-28 00:00: 00 No 4 Dose Unknown 0 09-28 00:00: 00 No TAKE 1 TABLET TWICE DAILY. 0 09-28 00:00: 00 No 4 Dose Unknown 0 09-28 00:00: 00 No TAKE 1 TABLET TWICE DAILY. 0 09-28 00:00: 00 No 4 Dose Unknown 0 09-28 00:00: 00 No TAKE 1 TABLET TWICE DAILY. 0 09-28 00:00: 00 No 4 Dose Unknown 0 09-28 00:00: 00 No TAKE 1 TABLET TWICE DAILY. 0 09-28 00:00: 00 No 4 Dose Unknown 0 09-28 00:00: 00 No TAKE 1 TABLET TWICE DAILY. 0 09-28 00:00: 00 No 4 Dose Unknown 0 09-28 00:00: 00 No TAKE 1 TABLET TWICE DAILY. 0 09-28 00:00: 00 No 4 Dose Unknown 0 09-28 00:00: 00 No TAKE 1 TABLET TWICE DAILY. 0 09-28 00:00: 00 No 4 Dose Unknown 0 09-28 00:00: 00 No &lt 2022-0 09-20 00:00: 00 No 50 &lt 2022-0 09-20 00:00: 00 No 50 &lt 2022-0 7 00:00: 00 No 50 &lt 2022-0 7 00:00: 00 No 50 &lt 2022-0 7 00:00: 00 No 50 &lt 2022-0 7 00:00: 00 No 50 &lt 2022-0 7 00:00: 00 No 50 &lt 2022-0 7 00:00: 00 No 50 &lt 2022-0 7 00:00: 00 No 50 &lt 2022-0 7 00:00: 00 No 50 &lt 2022-0 7 00:00: 00 No 50 &lt 2022-0 7 00:00: 00 No 50 &lt 2022-0 7 00:00: 00 No &lt 2022-0 7 00:00: 00 No &lt 2022-0 7 00:00: 00 No 10 &lt 2022-0 09-19 00:00: 00 No &lt 2022-0 09-19 00:00: 00 No 50 TAKE ONE TABLET TWICE A DAY 2022-0 09-19 00:00: 00 No 50 Dose Unknown 2022-0 09-19 00:00: 00 No TAKE 2 TABLETS INITIALLY, FOLLOWED BY 1 TABLET AFTER EACH LOOSE BOWEL MOVEMENT. DO NOT EXCEED 8 TABLETS/DAY . 2022-0 - 00:00: 00 No 2 &lt 2022-0 - 00:00: 00 No &lt 2022-0 09-19 00:00: 00 No &lt 2022-0 09-19 00:00: 00 No 10 &lt 2022-0 09-19 00:00: 00 No &lt 2022-0 09-19 00:00: 00 No 50 TAKE ONE TABLET TWICE A DAY 2-0 09-19 00:00: 00 No 50 Dose Unknown 2022-0 09-19 00:00: 00 No TAKE 2 TABLETS INITIALLY, FOLLOWED BY 1 TABLET AFTER EACH LOOSE BOWEL MOVEMENT. DO NOT EXCEED 8 TABLETS/DAY . 2022-0 09-19 00:00: 00 No 2 &lt 2022-0 09-19 00:00: 00 No &lt 2022-0 09-19 00:00: 00 No &lt 2022-0 09-19 00:00: 00 No 10 &lt 2022-0 09-19 00:00: 00 No &lt 2022-0 09-19 00:00: 00 No 50 TAKE ONE TABLET TWICE A DAY 2-0 09-19 00:00: 00 No 50 Dose Unknown 2022-0 09-19 00:00: 00 No TAKE 2 TABLETS INITIALLY, FOLLOWED BY 1 TABLET AFTER EACH LOOSE BOWEL MOVEMENT. DO NOT EXCEED 8 TABLETS/DAY . 2-0 09-19 00:00: 00 No 2 &lt 2022-0 09-19 00:00: 00 No &lt 2022-0 09-19 00:00: 00 No &lt 2022-0 09-19 00:00: 00 No 10 &lt 2022-0 7- 00:00: 00 No &lt 2022-0 09-19 00:00: 00 No 50 TAKE ONE TABLET TWICE A DAY 2-0 09-19 00:00: 00 No 50 Dose Unknown 2021-0 09-19 00:00: 00 No TAKE 2 TABLETS INITIALLY, FOLLOWED BY 1 TABLET AFTER EACH LOOSE BOWEL MOVEMENT. DO NOT EXCEED 8 TABLETS/DAY . 0 09-19 00:00: 00 No 2 &lt 2022-0 09-19 00:00: 00 No &lt 2022-0 09-19 00:00: 00 No &lt 2022-0 09-19 00:00: 00 No 10 &lt 2022-0 09-19 00:00: 00 No &lt 2022-0 09-19 00:00: 00 No 50 TAKE ONE TABLET TWICE A DAY 2021-0 09-19 00:00: 00 No 50 Dose Unknown 0 09-19 00:00: 00 No TAKE 2 TABLETS INITIALLY, FOLLOWED BY 1 TABLET AFTER EACH LOOSE BOWEL MOVEMENT. DO NOT EXCEED 8 TABLETS/DAY . 0 09-19 00:00: 00 No 2 &lt 2022-0 09-19 00:00: 00 No &lt 2022-0 09-19 00:00: 00 No &lt 2022-0 09-19 00:00: 00 No 10 &lt 2-0 09-19 00:00: 00 No &lt 2022-0 09-19 00:00: 00 No 50 TAKE ONE TABLET TWICE A DAY 2021-0 09-19 00:00: 00 No 50 Dose Unknown 0 09-19 00:00: 00 No TAKE 2 TABLETS INITIALLY, FOLLOWED BY 1 TABLET AFTER EACH LOOSE BOWEL MOVEMENT. DO NOT EXCEED 8 TABLETS/DAY . 0 09-19 00:00: 00 No 2 &lt 2022-0 09-19 00:00: 00 No &lt 2022-0 09-19 00:00: 00 No &lt 2022-0 09-19 00:00: 00 No 10 &lt 2022-0 09-19 00:00: 00 No &lt 2022-0 09-19 00:00: 00 No 50 TAKE ONE TABLET TWICE A DAY 2021-0 09-19 00:00: 00 No 50 Dose Unknown 0 09-19 00:00: 00 No TAKE 2 TABLETS INITIALLY, FOLLOWED BY 1 TABLET AFTER EACH LOOSE BOWEL MOVEMENT. DO NOT EXCEED 8 TABLETS/DAY . 2021-0 09-19 00:00: 00 No 2 &lt 2022-0 09-19 00:00: 00 No &lt 2022-0 09-19 00:00: 00 No &lt 2022-0 09-19 00:00: 00 No 10 &lt 2022-0 09-19 00:00: 00 No &lt 2022-0 09-19 00:00: 00 No 50 TAKE ONE TABLET TWICE A DAY 2-0 09-19 00:00: 00 No 50 Dose Unknown 2-0 09-19 00:00: 00 No TAKE 2 TABLETS INITIALLY, FOLLOWED BY 1 TABLET AFTER EACH LOOSE BOWEL MOVEMENT. DO NOT EXCEED 8 TABLETS/DAY . 2021-0 09-19 00:00: 00 No 2 &lt 2022-0 09-19 00:00: 00 No &lt 2022-0 09-19 00:00: 00 No &lt 2022-0 09-19 00:00: 00 No 10 &lt 2022-0 09-19 00:00: 00 No &lt 2022-0 09-19 00:00: 00 No 50 TAKE ONE TABLET TWICE A DAY 2-0 09-19 00:00: 00 No 50 Dose Unknown 2-0 09-19 00:00: 00 No TAKE 2 TABLETS INITIALLY, FOLLOWED BY 1 TABLET AFTER EACH LOOSE BOWEL MOVEMENT. DO NOT EXCEED 8 TABLETS/DAY . 2021-0 09-19 00:00: 00 No 2 &lt 2022-0 09-19 00:00: 00 No &lt 2022-0 09-19 00:00: 00 No &lt 2022-0 09-19 00:00: 00 No 10 &lt 2022-0 09-19 00:00: 00 No &lt 2022-0 09-19 00:00: 00 No 50 TAKE ONE TABLET TWICE A DAY 2-0 09-19 00:00: 00 No 50 Dose Unknown 2021-0 09-19 00:00: 00 No TAKE 2 TABLETS INITIALLY, FOLLOWED BY 1 TABLET AFTER EACH LOOSE BOWEL MOVEMENT. DO NOT EXCEED 8 TABLETS/DAY . 2021-0 09-19 00:00: 00 No 2 &lt 2022-0 09-19 00:00: 00 No &lt 2022-0 09-19 00:00: 00 No &lt 2022-0 7- 00:00: 00 No 10 &lt 2022-0 7- 00:00: 00 No &lt 2022-0 7 00:00: 00 No 50 TAKE ONE TABLET TWICE A DAY 2022-0 7 00:00: 00 No 50 Dose Unknown 2022-0 09-19 00:00: 00 No TAKE 2 TABLETS INITIALLY, FOLLOWED BY 1 TABLET AFTER EACH LOOSE BOWEL MOVEMENT. DO NOT EXCEED 8 TABLETS/DAY . 2022-0 7- 00:00: 00 No 2 &lt 2022-0 7- 00:00: 00 No &lt 2022-0 7- 00:00: 00 No &lt 2022-0 7 00:00: 00 No 10 &lt 2022-0 7- 00:00: 00 No &lt 2022-0 09-19 00:00: 00 No 50 TAKE ONE TABLET TWICE A DAY 2022-0 09-19 00:00: 00 No 50 Dose Unknown 2-0 09-19 00:00: 00 No TAKE 2 TABLETS INITIALLY, FOLLOWED BY 1 TABLET AFTER EACH LOOSE BOWEL MOVEMENT. DO NOT EXCEED 8 TABLETS/DAY . 2022-0 7- 00:00: 00 No 2 &lt 2022-0 6-30 00:00: 00 No &lt 2022-0 6-30 00:00: 00 No &lt 2022-0 6-30 00:00: 00 No &lt 2022-0 6-30 00:00: 00 No &lt 2022-0 6-30 00:00: 00 No &lt 2022-0 6-30 00:00: 00 No &lt 2022-0 6-30 00:00: 00 No &lt 2022-0 6-30 00:00: 00 No &lt 2022-0 6-30 00:00: 00 No &lt 2022-0 6-30 00:00: 00 No &lt 2022-0 6-30 00:00: 00 No &lt 2022-0 6-30 00:00: 00 No &lt 2022-0 6-30 00:00: 00 No &lt 2022-0 6-30 00:00: 00 No &lt 2022-0 6-30 00:00: 00 No &lt 2022-0 6-30 00:00: 00 No &lt 2022-0 6-30 00:00: 00 No &lt 2022-0 6-30 00:00: 00 No &lt 2022-0 6-30 00:00: 00 No &lt 2022-0 6-30 00:00: 00 No &lt 2022-0 6-30 00:00: 00 No &lt 2022-0 6-30 00:00: 00 No &lt 2022-0 6-30 00:00: 00 No &lt 2022-0 6-30 00:00: 00 No &lt 2022-0 6-30 00:00: 00 No &lt 2022-0 630 00:00: 00 No &lt 2022-0 630 00:00: 00 No &lt 2022-0 630 00:00: 00 No &lt 2022-0 6 00:00: 00 No &lt 2022-0 630 00:00: 00 No &lt 2022-0 630 00:00: 00 No &lt 2022-0 630 00:00: 00 No &lt 2022-0 630 00:00: 00 No &lt 2022-0 630 00:00: 00 No &lt 2022-0 630 00:00: 00 No &lt 2022-0 630 00:00: 00 No &lt 2022-0 6 00:00: 00 No &lt 2022-0 6 00:00: 00 No &lt 2022-0 630 00:00: 00 No &lt 2022-0 630 00:00: 00 No &lt 2022-0 6-30 00:00: 00 No &lt 2022-0 6-30 00:00: 00 No &lt 2022-0 630 00:00: 00 No &lt 2022-0 630 00:00: 00 No &lt 2022-0 630 00:00: 00 No &lt 2022-0 6 00:00: 00 No &lt 2022-0 6 00:00: 00 No &lt 2022-0 630 00:00: 00 No &lt 2022-0 6-30 00:00: 00 No &lt 2022-0 6-30 00:00: 00 No &lt 2022-0 6-30 00:00: 00 No &lt 2022-0 6-30 00:00: 00 No &lt 2022-0 6-29 00:00: 00 No &lt 2022-0 6-29 00:00: 00 No &lt 2022-0 6-29 00:00: 00 No &lt 2022-0 6-29 00:00: 00 No &lt 2022-0 6-29 00:00: 00 No &lt 2022-0 6-29 00:00: 00 No &lt 2022-0 6-29 00:00: 00 No &lt 2022-0 6-29 00:00: 00 No &lt 2022-0 6-29 00:00: 00 No &lt 2022-0 6-29 00:00: 00 No &lt 2022-0 6-29 00:00: 00 No &lt 2022-0 6-29 00:00: 00 No &lt 2022-0 6-29 00:00: 00 No &lt 2022-0 6-29 00:00: 00 No &lt 2022-0 6-29 00:00: 00 No &lt 2022-0 6-29 00:00: 00 No &lt 2022-0 6-29 00:00: 00 No &lt 2022-0 6-29 00:00: 00 No &lt 2022-0 6-29 00:00: 00 No &lt 2022-0 6-29 00:00: 00 No &lt 2022-0 6- 00:00: 00 No &lt 2022-0 6- 00:00: 00 No &lt 2022-0 6- 00:00: 00 No &lt 2022-0 6-29 00:00: 00 No &lt 2022-0 6- 00:00: 00 No &lt 2022-0 6- 00:00: 00 No atorvastati n 10 mg tablet 2-0 09-10 00:00: 00 No 1mg glimepiride 4 mg tablet 2-0 09-10 00:00: 00 No 1mg metformin ER 1,000 mg 24 hr tablet,exte nded release 2-0 09-10 00:00: 00 No 1mg &lt 2022-0 09-10 00:00: 00 No Dose Unknown 2022-0 09-10 00:00: 00 No Dose Unknown 2022-0 09-10 00:00: 00 No Dose Unknown 2022-0 09-10 00:00: 00 No &lt 2022-0 09-10 00:00: 00 No &lt 2022-0 09-10 00:00: 00 No Dose Unknown 2022-0 09-10 00:00: 00 No &lt 2022-0 09-10 00:00: 00 No &lt 2022-0 09-10 00:00: 00 No atorvastati n 10 mg tablet 2-0 09-10 00:00: 00 No 1mg glimepiride 4 mg tablet 2-0 09-10 00:00: 00 No 1mg metformin ER 1,000 mg 24 hr tablet,exte nded release 2-0 09-10 00:00: 00 No 1mg &lt 2022-0 09-10 00:00: 00 No Dose Unknown 2022-0 09-10 00:00: 00 No Dose Unknown 2022-0 09-10 00:00: 00 No Dose Unknown 2022-0 09-10 00:00: 00 No &lt 2022-0 09-10 00:00: 00 No &lt 2022-0 09-10 00:00: 00 No Dose Unknown 2022-0 09-10 00:00: 00 No &lt 2022-0 09-10 00:00: 00 No &lt 2022-0 09-10 00:00: 00 No atorvastati n 10 mg tablet 2-0 09-10 00:00: 00 No 1mg glimepiride 4 mg tablet 2022-0 09-10 00:00: 00 No 1mg metformin ER 1,000 mg 24 hr tablet,exte nded release (gastric) 2-0 09-10 00:00: 00 No 1mg &lt 2022-0 09-10 00:00: 00 No Dose Unknown 2022-0 09-10 00:00: 00 No Dose Unknown 2022-0 09-10 00:00: 00 No Dose Unknown 2022-0 09-10 00:00: 00 No &lt 2022-0 6- 00:00: 00 No &lt 2022-0 6 00:00: 00 No Dose Unknown 2022-0 6 00:00: 00 No &lt 2022-0 627 00:00: 00 No &lt 2022-0 6 00:00: 00 No atorvastati n 10 mg tablet 2022-0 6 00:00: 00 No 1mg glimepiride 4 mg tablet 2022-0 6 00:00: 00 No 1mg metformin ER 1,000 mg 24 hr tablet,exte nded release 2022-0 09-10 00:00: 00 No 1mg &lt 2022-0 6 00:00: 00 No Dose Unknown 2022-0 6 00:00: 00 No Dose Unknown 2022-0 6 00:00: 00 No Dose Unknown 2022-0 6 00:00: 00 No &lt 2022-0 6 00:00: 00 No &lt 2022-0 6 00:00: 00 No Dose Unknown 2022-0 6 00:00: 00 No &lt 2022-0 6 00:00: 00 No &lt 2022-0 6 00:00: 00 No atorvastati n 10 mg tablet 2022-0 09-10 00:00: 00 No 1mg glimepiride 4 mg tablet 2022-0 09-10 00:00: 00 No 1mg metformin ER 1,000 mg 24 hr tablet,exte nded release 2022-0 09-10 00:00: 00 No 1mg &lt 2022-0 6 00:00: 00 No Dose Unknown 2022-0 6 00:00: 00 No Dose Unknown 2022-0 6 00:00: 00 No Dose Unknown 2022-0 6 00:00: 00 No &lt 2022-0 6 00:00: 00 No &lt 2022-0 6 00:00: 00 No Dose Unknown 2022-0 6 00:00: 00 No &lt 2022-0 6 00:00: 00 No &lt 2022-0 6 00:00: 00 No atorvastati n 10 mg tablet 2022-0 09-10 00:00: 00 No 1mg glimepiride 4 mg tablet 2022-0 09-10 00:00: 00 No 1mg metformin ER 1,000 mg 24 hr tablet,exte nded release 2022-0 09-10 00:00: 00 No 1mg &lt 2022-0 6 00:00: 00 No Dose Unknown 2022-0 09-10 00:00: 00 No Dose Unknown 2022-0 09-10 00:00: 00 No Dose Unknown 2022-0 09-10 00:00: 00 No &lt 2022-0 6 00:00: 00 No &lt 2022-0 09-10 00:00: 00 No Dose Unknown 2022-0 09-10 00:00: 00 No &lt 2022-0 09-10 00:00: 00 No &lt 2022-0 09-10 00:00: 00 No atorvastati n 10 mg tablet 2022-0 09-10 00:00: 00 No 1mg glimepiride 4 mg tablet 2022-0 09-10 00:00: 00 No 1mg metformin ER 1,000 mg 24 hr tablet,exte nded release 2022-0 09-10 00:00: 00 No 1mg &lt 2022-0 09-10 00:00: 00 No Dose Unknown 2022-0 09-10 00:00: 00 No Dose Unknown 2022-0 09-10 00:00: 00 No Dose Unknown 2022-0 09-10 00:00: 00 No &lt 2022-0 6 00:00: 00 No &lt 2022-0 09-10 00:00: 00 No Dose Unknown 2022-0 09-10 00:00: 00 No &lt 2022-0 09-10 00:00: 00 No &lt 2022-0 09-10 00:00: 00 No atorvastati n 10 mg tablet 2022-0 09-10 00:00: 00 No 1mg Dose Unknown 2022-0 09-10 00:00: 00 No Dose Unknown 2022-0 09-10 00:00: 00 No &lt 2022-0 09-10 00:00: 00 No Dose Unknown 2022-0 09-10 00:00: 00 No Dose Unknown 2022-0 6 00:00: 00 No Dose Unknown 2022-0 6 00:00: 00 No &lt 2022-0 627 00:00: 00 No &lt 2022-0 6 00:00: 00 No Dose Unknown 2022-0 6 00:00: 00 No &lt 2022-0 6 00:00: 00 No &lt 2022-0 6 00:00: 00 No atorvastati n 10 mg tablet 2022-0 6 00:00: 00 No 1mg Dose Unknown 2022-0 6 00:00: 00 No Dose Unknown 2022-0 6 00:00: 00 No &lt 2022-0 6 00:00: 00 No Dose Unknown 2022-0 6 00:00: 00 No Dose Unknown 2022-0 6 00:00: 00 No Dose Unknown 2022-0 6 00:00: 00 No &lt 2022-0 6 00:00: 00 No &lt 2022-0 6 00:00: 00 No Dose Unknown 2022-0 6 00:00: 00 No &lt 2022-0 6 00:00: 00 No &lt 2022-0 6 00:00: 00 No atorvastati n 10 mg tablet 2022-0 09-10 00:00: 00 No 1mg Dose Unknown 2022-0 6 00:00: 00 No Dose Unknown 2022-0 6 00:00: 00 No &lt 2022-0 6 00:00: 00 No Dose Unknown 2022-0 6 00:00: 00 No Dose Unknown 2022-0 6 00:00: 00 No Dose Unknown 2022-0 6 00:00: 00 No &lt 2022-0 6 00:00: 00 No &lt 2022-0 6 00:00: 00 No Dose Unknown 2022-0 6 00:00: 00 No &lt 2022-0 6 00:00: 00 No &lt 2022-0 6 00:00: 00 No atorvastati n 10 mg tablet 2022-0 6 00:00: 00 No 1mg glimepiride 4 mg tablet 2022-0 09-10 00:00: 00 No 1mg metformin ER 1,000 mg 24 hr tablet,exte nded release (gastric) 2-0 09-10 00:00: 00 No 1mg &lt 2022-0 09-10 00:00: 00 No Dose Unknown 2022-0 09-10 00:00: 00 No Dose Unknown 2022-0 09-10 00:00: 00 No Dose Unknown 2022-0 09-10 00:00: 00 No &lt 2022-0 09-10 00:00: 00 No &lt 2022-0 09-10 00:00: 00 No Dose Unknown 2022-0 09-10 00:00: 00 No &lt 2022-0 09-10 00:00: 00 No &lt 2022-0 09-10 00:00: 00 No atorvastati n 10 mg tablet 2-0 09-10 00:00: 00 No 1mg glimepiride 4 mg tablet 2-0 09-10 00:00: 00 No 1mg metformin ER 1,000 mg 24 hr tablet,exte nded release 0 09-10 00:00: 00 No 1mg &lt 2022-0 09-10 00:00: 00 No Dose Unknown 2022-0 09-10 00:00: 00 No Dose Unknown 2022-0 09-10 00:00: 00 No Dose Unknown 2022-0 09-10 00:00: 00 No &lt 2022-0 09-10 00:00: 00 No &lt 2022-0 09-10 00:00: 00 No Dose Unknown 2022-0 09-10 00:00: 00 No &lt 2022-0 09-10 00:00: 00 No &lt 2022-0 09-10 00:00: 00 No atorvastati n 10 mg tablet 2-0 09-10 00:00: 00 No 1mg glimepiride 4 mg tablet 2-0 09-10 00:00: 00 No 1mg metformin ER 1,000 mg 24 hr tablet,exte nded release 2-0 09-10 00:00: 00 No 1mg &lt 2022-0 6-27 00:00: 00 No Dose Unknown 2022-0 6-27 00:00: 00 No Dose Unknown 2022-0 6-27 00:00: 00 No Dose Unknown 2022-0 6-27 00:00: 00 No &lt 2022-0 6-27 00:00: 00 No &lt 2022-0 6-27 00:00: 00 No Dose Unknown 2022-0 6-27 00:00: 00 No &lt 2022-0 6-27 00:00: 00 No &lt 2022-0 6-27 00:00: 00 No &lt 2022-0 6-24 00:00: 00 No &lt 2022-0 6-24 00:00: 00 No &lt 2022-0 6-24 00:00: 00 No &lt 2022-0 6-24 00:00: 00 No &lt 2022-0 6-24 00:00: 00 No &lt 2022-0 6-24 00:00: 00 No &lt 2022-0 6-24 00:00: 00 No &lt 2022-0 6-24 00:00: 00 No &lt 2022-0 6-24 00:00: 00 No &lt 2022-0 6-24 00:00: 00 No &lt 2022-0 6-24 00:00: 00 No &lt 2022-0 6-24 00:00: 00 No &lt 2022-0 6-24 00:00: 00 No &lt 2022-0 6-24 00:00: 00 No &lt 2022-0 6-24 00:00: 00 No &lt 2022-0 6-24 00:00: 00 No &lt 2022-0 6-24 00:00: 00 No &lt 2022-0 6-24 00:00: 00 No &lt 2022-0 6-24 00:00: 00 No &lt 2022-0 6-24 00:00: 00 No &lt 2022-0 6-24 00:00: 00 No &lt 2022-0 6-24 00:00: 00 No &lt 2022-0 6-24 00:00: 00 No &lt 2022-0 6-24 00:00: 00 No &lt 2022-0 6-24 00:00: 00 No &lt 2022-0 6-24 00:00: 00 No &lt 2022-0 6-09 00:00: 00 No APPLY TO AFFECTED AREA ONCE A DAY 2022-0 6-09 00:00: 00 No Dose Unknown 2022-0 6- 00:00: 00 No &lt 2022-0 6- 00:00: 00 No &lt 2022-0 6- 00:00: 00 No &lt 2022-0 6- 00:00: 00 No &lt 2022-0 6- 00:00: 00 No APPLY TO AFFECTED AREA ONCE A DAY 2022-0 6- 00:00: 00 No Dose Unknown 2022-0 6- 00:00: 00 No &lt 2022-0 6- 00:00: 00 No &lt 2022-0 6- 00:00: 00 No &lt 2022-0 6- 00:00: 00 No &lt 2022-0 6- 00:00: 00 No APPLY TO AFFECTED AREA ONCE A DAY 2022-0 6- 00:00: 00 No Dose Unknown 2022-0 6- 00:00: 00 No &lt 2022-0 6- 00:00: 00 No &lt 2022-0 6- 00:00: 00 No &lt 2022-0 6- 00:00: 00 No &lt 2022-0 6- 00:00: 00 No APPLY TO AFFECTED AREA ONCE A DAY 2022-0 6- 00:00: 00 No Dose Unknown 2022-0 6- 00:00: 00 No &lt 2022-0 6- 00:00: 00 No &lt 2022-0 6- 00:00: 00 No &lt 2022-0 6- 00:00: 00 No &lt 2022-0 6- 00:00: 00 No APPLY TO AFFECTED AREA ONCE A DAY 2022-0 6- 00:00: 00 No Dose Unknown 2022-0 6- 00:00: 00 No &lt 2022-0 6- 00:00: 00 No &lt 2022-0 6- 00:00: 00 No &lt 2022-0 6- 00:00: 00 No &lt 2022-0 6- 00:00: 00 No APPLY TO AFFECTED AREA ONCE A DAY 2022-0 6- 00:00: 00 No Dose Unknown 2022-0 6- 00:00: 00 No &lt 2022-0 6- 00:00: 00 No &lt 2022-0 6- 00:00: 00 No &lt 2022-0 6- 00:00: 00 No &lt 2022-0 6- 00:00: 00 No APPLY TO AFFECTED AREA ONCE A DAY 2022-0 6- 00:00: 00 No Dose Unknown 2022-0 6- 00:00: 00 No &lt 2022-0 6- 00:00: 00 No &lt 2022-0 6- 00:00: 00 No &lt 2022-0 6- 00:00: 00 No &lt 2022-0 6- 00:00: 00 No APPLY TO AFFECTED AREA ONCE A DAY 2022-0 6- 00:00: 00 No Dose Unknown 2022-0 6- 00:00: 00 No &lt 2022-0 6- 00:00: 00 No &lt 2022-0 6- 00:00: 00 No &lt 2022-0 6- 00:00: 00 No &lt 2022-0 6 00:00: 00 No APPLY TO AFFECTED AREA ONCE A DAY 2022-0 6- 00:00: 00 No Dose Unknown 2022-0 6 00:00: 00 No &lt 2022-0 6- 00:00: 00 No &lt 2022-0 6- 00:00: 00 No &lt 2022-0 6- 00:00: 00 No &lt 2022-0 6- 00:00: 00 No APPLY TO AFFECTED AREA ONCE A DAY 2022-0 6- 00:00: 00 No Dose Unknown 2022-0 6- 00:00: 00 No &lt 2022-0 6- 00:00: 00 No APPLY TO AFFECTED AREA ONCE A DAY 2022-0 6- 00:00: 00 No Dose Unknown 2022-0 6- 00:00: 00 No &lt 2022-0 6- 00:00: 00 No &lt 2022-0 6- 00:00: 00 No &lt 2022-0 6-09 00:00: 00 No &lt 2022-0 6-09 00:00: 00 No &lt 2022-0 6- 00:00: 00 No &lt 2022-0 6- 00:00: 00 No &lt 2022-0 6- 00:00: 00 No APPLY TO AFFECTED AREA ONCE A DAY 2022-0 6- 00:00: 00 No Dose Unknown 2022-0 6- 00:00: 00 No &lt 2022-0 6- 00:00: 00 No &lt 2022-0 6- 00:00: 00 No &lt 2022-0 6- 00:00: 00 No &lt 2022-0 6- 00:00: 00 No APPLY TO AFFECTED AREA ONCE A DAY 2022-0 6- 00:00: 00 No Dose Unknown 2022-0 6- 00:00: 00 No &lt 2022-0 6- 00:00: 00 No &lt 2022-0 6- 00:00: 00 No &lt 2022-0 6- 00:00: 00 No Dose Unknown 2022-0 5-27 00:00: 00 No Dose Unknown 2022-0 5-27 00:00: 00 No Dose Unknown 2022-0 5-27 00:00: 00 No Dose Unknown 2022-0 5-27 00:00: 00 No Dose Unknown 2022-0 5-27 00:00: 00 No Dose Unknown 2022-0 5-27 00:00: 00 No Dose Unknown 2022-0 5-27 00:00: 00 No Dose Unknown 2022-0 5-27 00:00: 00 No Dose Unknown 2022-0 5-27 00:00: 00 No Dose Unknown 2022-0 5-27 00:00: 00 No Dose Unknown 2022-0 5-27 00:00: 00 No Dose Unknown 2022-0 5-27 00:00: 00 No Dose Unknown 2022-0 5-27 00:00: 00 No Dose Unknown 2022-0 5-27 00:00: 00 No Dose Unknown 2022-0 5-27 00:00: 00 No Dose Unknown 2022-0 5-27 00:00: 00 No Dose Unknown 2022-0 5-27 00:00: 00 No Dose Unknown 2022-0 527 00:00: 00 No Dose Unknown 2022-0 527 00:00: 00 No Dose Unknown 2022-0 527 00:00: 00 No Dose Unknown 2022-0 527 00:00: 00 No Dose Unknown 2022-0 527 00:00: 00 No Dose Unknown 2022-0 527 00:00: 00 No Dose Unknown 2022-0 527 00:00: 00 No Dose Unknown 2022-0 527 00:00: 00 No Dose Unknown 2022-0 527 00:00: 00 No Dose Unknown 2022-0 526 00:00: 00 No Dose Unknown 2022-0 526 00:00: 00 No Dose Unknown 2022-0 526 00:00: 00 No Dose Unknown 2022-0 526 00:00: 00 No Dose Unknown 2022-0 526 00:00: 00 No Dose Unknown 2022-0 526 00:00: 00 No Dose Unknown 2022-0 526 00:00: 00 No Dose Unknown 2022-0 526 00:00: 00 No Dose Unknown 2022-0 526 00:00: 00 No Dose Unknown 2022-0 526 00:00: 00 No Dose Unknown 2022-0 526 00:00: 00 No Dose Unknown 2022-0 5-26 00:00: 00 No Dose Unknown 2022-0 526 00:00: 00 No Dose Unknown 2022-0 526 00:00: 00 No Dose Unknown 2022-0 526 00:00: 00 No Dose Unknown 2022-0 526 00:00: 00 No Dose Unknown 2022-0 526 00:00: 00 No Dose Unknown 2022-0 526 00:00: 00 No Dose Unknown 2022-0 5-26 00:00: 00 No Dose Unknown 2022-0 5-26 00:00: 00 No Dose Unknown 2022-0 5-26 00:00: 00 No Dose Unknown 2022-0 526 00:00: 00 No Dose Unknown 2022-0 526 00:00: 00 No Dose Unknown 2022-0 526 00:00: 00 No Dose Unknown 2022-0 5-26 00:00: 00 No Dose Unknown 2022-0 5-26 00:00: 00 No Dose Unknown 2022-0 5-26 00:00: 00 No Dose Unknown 2022-0 5-26 00:00: 00 No Dose Unknown 2022-0 5-26 00:00: 00 No Dose Unknown 2022-0 5-26 00:00: 00 No Dose Unknown 2022-0 5-26 00:00: 00 No Dose Unknown 2022-0 5-26 00:00: 00 No Dose Unknown 2022-0 5-26 00:00: 00 No Dose Unknown 2022-0 526 00:00: 00 No Dose Unknown 2022-0 526 00:00: 00 No Dose Unknown 2022-0 526 00:00: 00 No Dose Unknown 2022-0 526 00:00: 00 No Dose Unknown 2022-0 5- 00:00: 00 No Dose Unknown 2022-0 526 00:00: 00 No Dose Unknown 2022-0 526 00:00: 00 No Dose Unknown 2022-0 5-26 00:00: 00 No Dose Unknown 2022-0 5-26 00:00: 00 No Dose Unknown 2022-0 5-26 00:00: 00 No Dose Unknown 2022-0 5-26 00:00: 00 No Dose Unknown 2022-0 5-26 00:00: 00 No Dose Unknown 2022-0 5-26 00:00: 00 No Dose Unknown 2022-0 5-26 00:00: 00 No Dose Unknown 2022-0 5-26 00:00: 00 No Dose Unknown 2022-0 5-26 00:00: 00 No Dose Unknown 2022-0 5-26 00:00: 00 No Dose Unknown 2022-0 5-26 00:00: 00 No Dose Unknown 2022-0 5-26 00:00: 00 No Dose Unknown 2022-0 5-23 00:00: 00 No Dose Unknown 2022-0 5-23 00:00: 00 No Dose Unknown 2022-0 5-23 00:00: 00 No Dose Unknown 2022-0 5-23 00:00: 00 No Dose Unknown 2022-0 5-23 00:00: 00 No Dose Unknown 2022-0 5-23 00:00: 00 No Dose Unknown 0 08-06 00:00: 00 No Dose Unknown 0 08-06 00:00: 00 No Dose Unknown 0 08-06 00:00: 00 No Dose Unknown 0 08-06 00:00: 00 No Dose Unknown 0 08-06 00:00: 00 No Dose Unknown 0 08-06 00:00: 00 No Dose Unknown 0 08-06 00:00: 00 No clobetasol 0.05 % topical cream 0 07-25 00:00: 00 No 1% ciprofloxac in 500 mg tablet 0 07-25 00:00: 00 No 1mg diclofenac sodium 75 mg tablet,katya yed release 0 07-25 00:00: 00 No 1mg trazodone 100 mg tablet 0 07-25 00:00: 00 No 1mg loperamide 2 mg capsule 2021-0 07-25 00:00: 00 No 1mg clobetasol 0.05 % topical cream 2021-0 07-25 00:00: 00 No 1% ciprofloxac in 500 mg tablet 2021-0 07-25 00:00: 00 No 1mg diclofenac sodium 75 mg tablet,katya yed release 0 07-25 00:00: 00 No 1mg trazodone 100 mg tablet 0 07-25 00:00: 00 No 1mg loperamide 2 mg capsule 2021-0 07-25 00:00: 00 No 1mg clobetasol 0.05 % topical cream 2021-0 07-25 00:00: 00 No 1% ciprofloxac in 500 mg tablet 2021-0 07-25 00:00: 00 No 1mg diclofenac sodium 75 mg tablet,katya yed release 0 07-25 00:00: 00 No 1mg trazodone 100 mg tablet 2021-0 07-25 00:00: 00 No 1mg loperamide 2 mg capsule 2021-0 07-25 00:00: 00 No 1mg clobetasol 0.05 % topical cream 2021-0 07-25 00:00: 00 No 1% ciprofloxac in 500 mg tablet 0 07-25 00:00: 00 No 1mg diclofenac sodium 75 mg tablet,katya yed release 0 07-25 00:00: 00 No 1mg trazodone 100 mg tablet 0 07-25 00:00: 00 No 1mg loperamide 2 mg capsule 0 07-25 00:00: 00 No 1mg clobetasol 0.05 % topical cream 0 07-25 00:00: 00 No 1% ciprofloxac in 500 mg tablet 0 07-25 00:00: 00 No 1mg diclofenac sodium 75 mg tablet,katya yed release 0 07-25 00:00: 00 No 1mg trazodone 100 mg tablet 0 07-25 00:00: 00 No 1mg loperamide 2 mg capsule 0 07-25 00:00: 00 No 1mg clobetasol 0.05 % topical cream 0 07-25 00:00: 00 No 1% ciprofloxac in 500 mg tablet 0 07-25 00:00: 00 No 1mg diclofenac sodium 75 mg tablet,katya yed release 0 07-25 00:00: 00 No 1mg trazodone 100 mg tablet 0 07-25 00:00: 00 No 1mg loperamide 2 mg capsule 0 07-25 00:00: 00 No 1mg Dose Unknown 0 07-25 00:00: 00 No Dose Unknown 0 07-25 00:00: 00 No Dose Unknown 0 07-25 00:00: 00 No Dose Unknown 0 07-25 00:00: 00 No Dose Unknown 0 07-25 00:00: 00 No Dose Unknown 0 07-25 00:00: 00 No Dose Unknown 0 07-25 00:00: 00 No Dose Unknown 0 07-25 00:00: 00 No Dose Unknown 0 07-25 00:00: 00 No clobetasol 0.05 % topical cream 0 07-25 00:00: 00 No 1% ciprofloxac in 500 mg tablet 0 07-25 00:00: 00 No 1mg diclofenac sodium 75 mg tablet,katya yed release 0 07-25 00:00: 00 No 1mg trazodone 100 mg tablet 0 07-25 00:00: 00 No 1mg loperamide 2 mg capsule 0 07-25 00:00: 00 No 1mg Dose Unknown 0 07-25 00:00: 00 No Dose Unknown 0 07-25 00:00: 00 No Dose Unknown 0 07-25 00:00: 00 No Dose Unknown 0 07-25 00:00: 00 No clobetasol 0.05 % topical cream 0 07-25 00:00: 00 No 1% ciprofloxac in 500 mg tablet 0 07-25 00:00: 00 No 1mg diclofenac sodium 75 mg tablet,katya yed release 0 07-25 00:00: 00 No 1mg trazodone 100 mg tablet 0 07-25 00:00: 00 No 1mg loperamide 2 mg capsule 0 07-25 00:00: 00 No 1mg clobetasol 0.05 % topical cream 0 07-25 00:00: 00 No 1% ciprofloxac in 500 mg tablet 0 07-25 00:00: 00 No 1mg diclofenac sodium 75 mg tablet,katya yed release 0 07-25 00:00: 00 No 1mg trazodone 100 mg tablet 0 07-25 00:00: 00 No 1mg loperamide 2 mg capsule 0 07-25 00:00: 00 No 1mg clobetasol 0.05 % topical cream 0 07-25 00:00: 00 No 1% ciprofloxac in 500 mg tablet 0 07-25 00:00: 00 No 1mg diclofenac sodium 75 mg tablet,katya yed release 0 07-25 00:00: 00 No 1mg trazodone 100 mg tablet 0 07-25 00:00: 00 No 1mg loperamide 2 mg capsule 0 07-25 00:00: 00 No 1mg hydrocortis one 1 % topical cream 07-12 00:00: 00 No 1% mupirocin 2 % topical ointment 07-12 00:00: 00 No 1% triamcinolo ne acetonide 0.025 % topical cream 07-12 00:00: 00 No 1% metformin ER 1,000 mg 24 hr tablet,exte nded release (gastric) 07-12 00:00: 00 No 1mg Cholestyram ine Light 4 gram powder for susp in a packet 07-12 00:00: 00 No 1gram hydrocortis one 1 % topical cream 07-12 00:00: 00 No 1% APPLY SPARINGLY TO AFFECTED AREA(S) TWICE DAILY 07-12 00:00: 00 No triamcinolo ne acetonide 0.025 % topical cream 07-12 00:00: 00 No 1% metformin ER 1,000 mg 24 hr tablet,exte nded release (gastric) 07-12 00:00: 00 No 1mg Cholestyram ine Light 4 gram powder for susp in a packet 07-12 00:00: 00 No 1gram hydrocortis one 1 % topical cream 07-12 00:00: 00 No 1% APPLY SPARINGLY TO AFFECTED AREA(S) TWICE DAILY 07-12 00:00: 00 No triamcinolo ne acetonide 0.025 % topical cream 07-12 00:00: 00 No 1% metformin ER 1,000 mg 24 hr tablet,exte nded release (gastric) 07-12 00:00: 00 No 1mg Cholestyram ine Light 4 gram powder for susp in a packet 07-12 00:00: 00 No 1gram hydrocortis one 1 % topical cream 07-12 00:00: 00 No 1% APPLY SPARINGLY TO AFFECTED AREA(S) TWICE DAILY 07-12 00:00: 00 No triamcinolo ne acetonide 0.025 % topical cream 07-12 00:00: 00 No 1% metformin ER 1,000 mg 24 hr tablet,exte nded release (gastric) 07-12 00:00: 00 No 1mg Cholestyram ine Light 4 gram powder for susp in a packet 07-12 00:00: 00 No 1gram hydrocortis one 1 % topical cream 07-12 00:00: 00 No 1% APPLY SPARINGLY TO AFFECTED AREA(S) TWICE DAILY 07-12 00:00: 00 No triamcinolo ne acetonide 0.025 % topical cream 07-12 00:00: 00 No 1% metformin ER 1,000 mg 24 hr tablet,exte nded release (gastric) 07-12 00:00: 00 No 1mg Cholestyram ine Light 4 gram powder for susp in a packet 07-12 00:00: 00 No 1gram hydrocortis one 1 % topical cream 07-12 00:00: 00 No 1% APPLY SPARINGLY TO AFFECTED AREA(S) TWICE DAILY 07-12 00:00: 00 No triamcinolo ne acetonide 0.025 % topical cream 07-12 00:00: 00 No 1% metformin ER 1,000 mg 24 hr tablet,exte nded release (gastric) 07-12 00:00: 00 No 1mg Cholestyram ine Light 4 gram powder for susp in a packet 07-12 00:00: 00 No 1gram APPLY SPARINGLY TO AFFECTED AREA(S) TWICE DAILY 07-12 00:00: 00 No Dose Unknown 07-12 00:00: 00 No Dose Unknown 07-12 00:00: 00 No metformin ER 1,000 mg 24 hr tablet,exte nded release (gastric) 07-12 00:00: 00 No 1mg Dose Unknown 07-12 00:00: 00 No APPLY SPARINGLY TO AFFECTED AREA(S) TWICE DAILY 07-12 00:00: 00 No Dose Unknown 07-12 00:00: 00 No Dose Unknown 07-12 00:00: 00 No metformin ER 1,000 mg 24 hr tablet,exte nded release (gastric) 07-12 00:00: 00 No 1mg Dose Unknown 07-12 00:00: 00 No hydrocortis one 1 % topical cream 07-12 00:00: 00 No 1% mupirocin 2 % topical ointment 07-12 00:00: 00 No 1% triamcinolo ne acetonide 0.025 % topical cream 07-12 00:00: 00 No 1% metformin ER 1,000 mg 24 hr tablet,exte nded release (gastric) 07-12 00:00: 00 No 1mg Cholestyram ine Light 4 gram powder for susp in a packet 07-12 00:00: 00 No 1gram APPLY SPARINGLY TO AFFECTED AREA(S) TWICE DAILY 07-12 00:00: 00 No Dose Unknown 07-12 00:00: 00 No Dose Unknown 07-12 00:00: 00 No metformin ER 1,000 mg 24 hr tablet,exte nded release (gastric) 07-12 00:00: 00 No 1mg Dose Unknown 07-12 00:00: 00 No hydrocortis one 1 % topical cream 07-12 00:00: 00 No 1% mupirocin 2 % topical ointment 07-12 00:00: 00 No 1% triamcinolo ne acetonide 0.025 % topical cream 07-12 00:00: 00 No 1% metformin ER 1,000 mg 24 hr tablet,exte nded release (gastric) 07-12 00:00: 00 No 1mg Cholestyram ine Light 4 gram powder for susp in a packet 07-12 00:00: 00 No 1gram hydrocortis one 1 % topical cream 07-12 00:00: 00 No 1% mupirocin 2 % topical ointment 07-12 00:00: 00 No 1% triamcinolo ne acetonide 0.025 % topical cream 07-12 00:00: 00 No 1% metformin ER 1,000 mg 24 hr tablet,exte nded release (gastric) 07-12 00:00: 00 No 1mg Cholestyram ine Light 4 gram powder for susp in a packet 07-12 00:00: 00 No 1gram hydrocortis one 1 % topical cream 07-12 00:00: 00 No 1% mupirocin 2 % topical ointment 07-12 00:00: 00 No 1% triamcinolo ne acetonide 0.025 % topical cream 07-12 00:00: 00 No 1% metformin ER 1,000 mg 24 hr tablet,exte nded release (gastric) 07-12 00:00: 00 No 1mg Cholestyram ine Light 4 gram powder for susp in a packet 07-12 00:00: 00 No 1gram Januvia 50 mg tablet 07-08 00:00: 00 No 1mg Vitamin D2 1,250 mcg (50,000 unit) capsule 07-08 00:00: 00 No 1(50,00 0 unit) Januvia 50 mg tablet 07-08 00:00: 00 No 1mg Vitamin D2 1,250 mcg (50,000 unit) capsule 07-08 00:00: 00 No 1(50,00 0 unit) Januvia 50 mg tablet 07-08 00:00: 00 No 1mg Vitamin D2 1,250 mcg (50,000 unit) capsule 07-08 00:00: 00 No 1(50,00 0 unit) Januvia 50 mg tablet 07-08 00:00: 00 No 1mg Vitamin D2 1,250 mcg (50,000 unit) capsule 07-08 00:00: 00 No 1(50,00 0 unit) Januvia 50 mg tablet 07-08 00:00: 00 No 1mg Vitamin D2 1,250 mcg (50,000 unit) capsule 07-08 00:00: 00 No 1(50,00 0 unit) Januvia 50 mg tablet 07-08 00:00: 00 No 1mg Vitamin D2 1,250 mcg (50,000 unit) capsule 07-08 00:00: 00 No 1(50,00 0 unit) TAKE 1 TABLET DAILY. 07-08 00:00: 00 No Dose Unknown 0 07-08 00:00: 00 No TAKE 1 TABLET DAILY. 0 07-08 00:00: 00 No Dose Unknown 0 07-08 00:00: 00 No Januvia 50 mg tablet 0 07-08 00:00: 00 No 1mg Vitamin D2 1,250 mcg (50,000 unit) capsule 0 07-08 00:00: 00 No 1(50,00 0 unit) TAKE 1 TABLET DAILY. 0 07-08 00:00: 00 No Dose Unknown 0 07-08 00:00: 00 No Januvia 50 mg tablet 0 07-08 00:00: 00 No 1mg Vitamin D2 1,250 mcg (50,000 unit) capsule 0 07-08 00:00: 00 No 1(50,00 0 unit) Januvia 50 mg tablet 0 07-08 00:00: 00 No 1mg Vitamin D2 1,250 mcg (50,000 unit) capsule 0 07-08 00:00: 00 No 1(50,00 0 unit) Januvia 50 mg tablet 0 07-08 00:00: 00 No 1mg Vitamin D2 1,250 mcg (50,000 unit) capsule 0 07-08 00:00: 00 No 1(50,00 0 unit) mupirocin 2 % topical ointment 0 07-03 00:00: 00 No 1% Dose Unknown 0 07-03 00:00: 00 No Dose Unknown 0 07-03 00:00: 00 No Dose Unknown 0 07-03 00:00: 00 No Dose Unknown 0 07-03 00:00: 00 No Dose Unknown 0 07-03 00:00: 00 No Dose Unknown 0 07-03 00:00: 00 No Dose Unknown 0 07-03 00:00: 00 No Dose Unknown 0 07-03 00:00: 00 No Dose Unknown 0 07-03 00:00: 00 No Dose Unknown 0 07-03 00:00: 00 No clobetasol 0.05 % shampoo 20207-03 00:00: 00 No 1% Dose Unknown 07-03 00:00: 00 No Dose Unknown 07-03 00:00: 00 No Nystop 100,000 unit/gram topical powder 07-03 00:00: 00 No 1unit/g isabel Nystop 100,000 unit/gram topical powder 07-03 00:00: 00 No 1unit/g isabel cholestyram ine (with sugar) 4 gram powder for susp in a packet 07-03 00:00: 00 No 4gram Dose Unknown 07-03 00:00: 00 No triamcinolo ne acetonide 0.025 % topical cream 07-03 00:00: 00 No 1% triamcinolo ne acetonide 0.025 % topical cream 07-03 00:00: 00 No 1% APPLY SPARINGLY TO AFFECTED AREA(S) TWICE DAILY 07-03 00:00: 00 No clobetasol 0.05 % shampoo 07-03 00:00: 00 No 1% ketoconazol e 2 % shampoo 07-03 00:00: 00 No 1% ketoconazol e 2 % shampoo 07-03 00:00: 00 No 1% clobetasol 0.05 % topical ointment 07-03 00:00: 00 No 1% APPLY SPARINGLY TO AFFECTED AREA(S) TWICE DAILY 07-03 00:00: 00 No clobetasol 0.05 % shampoo 07-03 00:00: 00 No 1% aspirin 81 mg tablet,katya yed release 07-03 00:00: 00 No 1mg loratadine 10 mg tablet 07-03 00:00: 00 No 1mg loratadine 10 mg tablet 07-03 00:00: 00 No 1mg aspirin 81 mg tablet,katya yed release 07-03 00:00: 00 No 1mg sertraline 50 mg tablet 07-03 00:00: 00 No 1mg atenolol 100 mg tablet 07-03 00:00: 00 No 1mg metformin 1,000 mg tablet 0 07-03 00:00: 00 No 1mg glimepiride 4 mg tablet 0 07-03 00:00: 00 No 1mg diclofenac sodium 75 mg tablet,katya yed release 0 07-03 00:00: 00 No 1mg glimepiride 4 mg tablet 0 07-03 00:00: 00 No 1mg atenolol 100 mg tablet 0 07-03 00:00: 00 No 1mg sertraline 50 mg tablet 0 07-03 00:00: 00 No 1mg metformin ER 500 mg tablet,exte nded release 24 hr 0 07-03 00:00: 00 No 2mg naproxen 500 mg tablet 0 07-03 00:00: 00 No 1mg trazodone 50 mg tablet 0 07-03 00:00: 00 No 1mg trazodone 50 mg tablet 0 07-03 00:00: 00 No 1mg naproxen 500 mg tablet 0 07-03 00:00: 00 No 1mg Dose Unknown 0 4 00:00: 00 No Dose Unknown 0 4 00:00: 00 No Dose Unknown 0 4 00:00: 00 No omeprazole 40 mg capsule,del ayed release 0 07-03 00:00: 00 No 1mg sulconazole 1 % topical solution 0 07-03 00:00: 00 No 1% sulconazole 1 % topical solution 0 07-03 00:00: 00 No 1% Dose Unknown 0 419 00:00: 00 No Dose Unknown 0 419 00:00: 00 No Dose Unknown 2021-0 419 00:00: 00 No Dose Unknown 2021-0 419 00:00: 00 No Dose Unknown 0 419 00:00: 00 No Dose Unknown 0 419 00:00: 00 No Dose Unknown 0 419 00:00: 00 No Dose Unknown 0 419 00:00: 00 No Dose Unknown 2022-0 4-19 00:00: 00 No Dose Unknown 2022-0 4-19 00:00: 00 No Dose Unknown 2022-0 4-19 00:00: 00 No Dose Unknown 2022-0 4-19 00:00: 00 No Dose Unknown 2022-0 4-19 00:00: 00 No Dose Unknown 2022-0 4-19 00:00: 00 No Dose Unknown 2022-0 4-19 00:00: 00 No Dose Unknown 2022-0 4-19 00:00: 00 No Dose Unknown 2022-0 4-19 00:00: 00 No Dose Unknown 2022-0 4-19 00:00: 00 No Dose Unknown 2022-0 4-19 00:00: 00 No Dose Unknown 2022-0 4-19 00:00: 00 No Dose Unknown 2022-0 4-19 00:00: 00 No Dose Unknown 2022-0 4-19 00:00: 00 No Dose Unknown 2022-0 4-19 00:00: 00 No Dose Unknown 2022-0 4-19 00:00: 00 No Dose Unknown 2022-0 4-19 00:00: 00 No Dose Unknown 2022-0 4-19 00:00: 00 No Dose Unknown 2022-0 4-19 00:00: 00 No Dose Unknown 2022-0 4-19 00:00: 00 No ketoconazol e 2 % shampoo 2022-0 4-19 00:00: 00 No 1% Dose Unknown 2022-0 4-19 00:00: 00 No Dose Unknown 2022-0 4-19 00:00: 00 No Dose Unknown 2022-0 4-19 00:00: 00 No Dose Unknown 2022-0 4-19 00:00: 00 No Dose Unknown 2022-0 4-19 00:00: 00 No Dose Unknown 2022-0 4-19 00:00: 00 No Dose Unknown 2022-0 4-19 00:00: 00 No Dose Unknown 2022-0 4-19 00:00: 00 No Dose Unknown 2022-0 4-19 00:00: 00 No Dose Unknown 2022-0 4-19 00:00: 00 No Dose Unknown 2022-0 4-19 00:00: 00 No Dose Unknown 2022-0 4-19 00:00: 00 No Dose Unknown 2022-0 4-19 00:00: 00 No Dose Unknown 2022-0 4-19 00:00: 00 No Dose Unknown 2022-0 4-19 00:00: 00 No Dose Unknown 2022-0 4-19 00:00: 00 No Dose Unknown 2022-0 4-19 00:00: 00 No Dose Unknown 2022-0 4-19 00:00: 00 No Dose Unknown 2022-0 4-19 00:00: 00 No Dose Unknown 2022-0 4-19 00:00: 00 No Dose Unknown 2022-0 4-19 00:00: 00 No Dose Unknown 2022-0 4-19 00:00: 00 No Dose Unknown 2022-0 4-19 00:00: 00 No Dose Unknown 2022-0 4-19 00:00: 00 No Dose Unknown 2022-0 4-19 00:00: 00 No Dose Unknown 2022-0 4-19 00:00: 00 No Dose Unknown 2022-0 4-19 00:00: 00 No Dose Unknown 2022-0 4-19 00:00: 00 No Dose Unknown 2022-0 4-19 00:00: 00 No Dose Unknown 2022-0 4-19 00:00: 00 No Dose Unknown 2022-0 4-19 00:00: 00 No Dose Unknown 2022-0 4-19 00:00: 00 No Dose Unknown 2022-0 4-19 00:00: 00 No Dose Unknown 2022-0 4-19 00:00: 00 No Dose Unknown 2022-0 4-19 00:00: 00 No Dose Unknown 2022-0 4-19 00:00: 00 No Dose Unknown 2022-0 4-19 00:00: 00 No Dose Unknown 2022-0 4-19 00:00: 00 No Dose Unknown 2022-0 4-19 00:00: 00 No Dose Unknown 2022-0 4-19 00:00: 00 No Dose Unknown 2022-0 4-19 00:00: 00 No Dose Unknown 2022-0 4-19 00:00: 00 No Dose Unknown 2022-0 4-19 00:00: 00 No Dose Unknown 2022-0 4-19 00:00: 00 No ketoconazol e 2 % shampoo 2022-0 4-19 00:00: 00 No 1% clobetasol 0.05 % topical ointment 07-03 00:00: 00 No 1% Nystop 100,000 unit/gram topical powder 07-03 00:00: 00 No 1unit/g isabel Nystop 100,000 unit/gram topical powder 07-03 00:00: 00 No 1unit/g isabel cholestyram ine (with sugar) 4 gram powder for susp in a packet 07-03 00:00: 00 No 4gram Dose Unknown 07-03 00:00: 00 No triamcinolo ne acetonide 0.025 % topical cream 07-03 00:00: 00 No 1% triamcinolo ne acetonide 0.025 % topical cream 07-03 00:00: 00 No 1% APPLY SPARINGLY TO AFFECTED AREA(S) TWICE DAILY 07-03 00:00: 00 No clobetasol 0.05 % shampoo 07-03 00:00: 00 No 1% ketoconazol e 2 % shampoo 07-03 00:00: 00 No 1% ketoconazol e 2 % shampoo 07-03 00:00: 00 No 1% clobetasol 0.05 % topical ointment 07-03 00:00: 00 No 1% APPLY SPARINGLY TO AFFECTED AREA(S) TWICE DAILY 07-03 00:00: 00 No clobetasol 0.05 % shampoo 07-03 00:00: 00 No 1% aspirin 81 mg tablet,katya yed release 07-03 00:00: 00 No 1mg loratadine 10 mg tablet 07-03 00:00: 00 No 1mg loratadine 10 mg tablet 07-03 00:00: 00 No 1mg aspirin 81 mg tablet,katya yed release 07-03 00:00: 00 No 1mg sertraline 50 mg tablet 07-03 00:00: 00 No 1mg atenolol 100 mg tablet 07-03 00:00: 00 No 1mg metformin 1,000 mg tablet 0 4-19 00:00: 00 No 1mg glimepiride 4 mg tablet 0 419 00:00: 00 No 1mg diclofenac sodium 75 mg tablet,katya yed release 0 07-03 00:00: 00 No 1mg glimepiride 4 mg tablet 0 4 00:00: 00 No 1mg atenolol 100 mg tablet 0 4 00:00: 00 No 1mg sertraline 50 mg tablet 0 07-03 00:00: 00 No 1mg metformin ER 500 mg tablet,exte nded release 24 hr 0 07-03 00:00: 00 No 2mg naproxen 500 mg tablet 0 07-03 00:00: 00 No 1mg trazodone 50 mg tablet 0 4 00:00: 00 No 1mg trazodone 50 mg tablet 0 07-03 00:00: 00 No 1mg naproxen 500 mg tablet 0 07-03 00:00: 00 No 1mg Dose Unknown 0 4 00:00: 00 No Dose Unknown 0 419 00:00: 00 No Dose Unknown 0 419 00:00: 00 No omeprazole 40 mg capsule,del ayed release 0 07-03 00:00: 00 No 1mg sulconazole 1 % topical solution 0 419 00:00: 00 No 1% sulconazole 1 % topical solution 0 419 00:00: 00 No 1% Dose Unknown 0 419 00:00: 00 No Dose Unknown 2021-0 419 00:00: 00 No Dose Unknown 0 4-19 00:00: 00 No Dose Unknown 0 4-19 00:00: 00 No Dose Unknown 2021-0 4-19 00:00: 00 No Dose Unknown 0 4-19 00:00: 00 No Dose Unknown 0 4-19 00:00: 00 No Dose Unknown 0 4-19 00:00: 00 No Dose Unknown 0 4-19 00:00: 00 No Dose Unknown 2022-0 4-19 00:00: 00 No Dose Unknown 2022-0 4-19 00:00: 00 No Dose Unknown 2022-0 4-19 00:00: 00 No Dose Unknown 2022-0 4-19 00:00: 00 No Dose Unknown 2022-0 4-19 00:00: 00 No Dose Unknown 2022-0 4-19 00:00: 00 No Dose Unknown 2022-0 4-19 00:00: 00 No Dose Unknown 2022-0 4-19 00:00: 00 No Dose Unknown 2022-0 4-19 00:00: 00 No Dose Unknown 2022-0 4-19 00:00: 00 No Dose Unknown 2022-0 4-19 00:00: 00 No Dose Unknown 2022-0 4-19 00:00: 00 No Dose Unknown 2022-0 4-19 00:00: 00 No Dose Unknown 2022-0 4-19 00:00: 00 No Dose Unknown 2022-0 4-19 00:00: 00 No Dose Unknown 2022-0 4-19 00:00: 00 No Dose Unknown 2022-0 4-19 00:00: 00 No Dose Unknown 2022-0 4-19 00:00: 00 No Dose Unknown 2022-0 4-19 00:00: 00 No Dose Unknown 2022-0 4-19 00:00: 00 No Dose Unknown 2022-0 4-19 00:00: 00 No Dose Unknown 2022-0 4-19 00:00: 00 No Dose Unknown 2022-0 4-19 00:00: 00 No Dose Unknown 2022-0 4-19 00:00: 00 No mupirocin 2 % topical ointment 2022-0 4-19 00:00: 00 No 1% Dose Unknown 2022-0 4-19 00:00: 00 No Dose Unknown 2022-0 4-19 00:00: 00 No Dose Unknown 2022-0 4-19 00:00: 00 No Dose Unknown 2022-0 4-19 00:00: 00 No Dose Unknown 2022-0 4-19 00:00: 00 No Dose Unknown 2022-0 4-19 00:00: 00 No Dose Unknown 2022-0 4-19 00:00: 00 No Dose Unknown 2022-0 4-19 00:00: 00 No Dose Unknown 2022-0 4-19 00:00: 00 No Dose Unknown 2022-0 4-19 00:00: 00 No Dose Unknown 2022-0 4-19 00:00: 00 No Dose Unknown 2022-0 4-19 00:00: 00 No Dose Unknown 2022-0 4-19 00:00: 00 No Dose Unknown 2022-0 4-19 00:00: 00 No Dose Unknown 2022-0 4-19 00:00: 00 No Dose Unknown 2022-0 4-19 00:00: 00 No Dose Unknown 2022-0 4-19 00:00: 00 No Dose Unknown 2022-0 4-19 00:00: 00 No Dose Unknown 2022-0 4-19 00:00: 00 No Dose Unknown 2022-0 4-19 00:00: 00 No Dose Unknown 2022-0 4-19 00:00: 00 No Dose Unknown 2022-0 4-19 00:00: 00 No Dose Unknown 2022-0 4-19 00:00: 00 No Dose Unknown 2022-0 4-19 00:00: 00 No Dose Unknown 2022-0 4-19 00:00: 00 No Dose Unknown 2022-0 4-19 00:00: 00 No Dose Unknown 2022-0 4-19 00:00: 00 No Dose Unknown 2022-0 4-19 00:00: 00 No Dose Unknown 2022-0 4-19 00:00: 00 No Dose Unknown 2022-0 4-19 00:00: 00 No Dose Unknown 2022-0 4-19 00:00: 00 No Dose Unknown 2022-0 4-19 00:00: 00 No Dose Unknown 2022-0 4-19 00:00: 00 No Dose Unknown 2022-0 4-19 00:00: 00 No Dose Unknown 2022-0 4-19 00:00: 00 No Dose Unknown 2022-0 4-19 00:00: 00 No Dose Unknown 2022-0 4-19 00:00: 00 No Dose Unknown 2022-0 4-19 00:00: 00 No Dose Unknown 2022-0 4-19 00:00: 00 No clobetasol 0.05 % shampoo 2022-0 4-19 00:00: 00 No 1% aspirin 81 mg tablet,katya yed release 07-03 00:00: 00 No 1mg Nystop 100,000 unit/gram topical powder 07-03 00:00: 00 No 1unit/g isabel Nystop 100,000 unit/gram topical powder 07-03 00:00: 00 No 1unit/g isabel cholestyram ine (with sugar) 4 gram powder for susp in a packet 07-03 00:00: 00 No 4gram Dose Unknown 07-03 00:00: 00 No triamcinolo ne acetonide 0.025 % topical cream 07-03 00:00: 00 No 1% triamcinolo ne acetonide 0.025 % topical cream 07-03 00:00: 00 No 1% APPLY SPARINGLY TO AFFECTED AREA(S) TWICE DAILY 07-03 00:00: 00 No clobetasol 0.05 % shampoo 07-03 00:00: 00 No 1% Dose Unknown 07-03 00:00: 00 No Dose Unknown 07-03 00:00: 00 No clobetasol 0.05 % topical ointment 07-03 00:00: 00 No 1% APPLY SPARINGLY TO AFFECTED AREA(S) TWICE DAILY 07-03 00:00: 00 No clobetasol 0.05 % shampoo 07-03 00:00: 00 No 1% aspirin 81 mg tablet,katya yed release 07-03 00:00: 00 No 1mg loratadine 10 mg tablet 07-03 00:00: 00 No 1mg loratadine 10 mg tablet 07-03 00:00: 00 No 1mg aspirin 81 mg tablet,katya yed release 07-03 00:00: 00 No 1mg sertraline 50 mg tablet 07-03 00:00: 00 No 1mg atenolol 100 mg tablet 07-03 00:00: 00 No 1mg metformin 1,000 mg tablet 07-03 00:00: 00 No 1mg glimepiride 4 mg tablet 2022-0 4-19 00:00: 00 No 1mg diclofenac sodium 75 mg tablet,katya yed release 0 4 00:00: 00 No 1mg glimepiride 4 mg tablet 0 4 00:00: 00 No 1mg atenolol 100 mg tablet 0 4 00:00: 00 No 1mg sertraline 50 mg tablet 0 07-03 00:00: 00 No 1mg metformin ER 500 mg tablet,exte nded release 24 hr 0 07-03 00:00: 00 No 2mg naproxen 500 mg tablet 0 4 00:00: 00 No 1mg trazodone 50 mg tablet 0 07-03 00:00: 00 No 1mg trazodone 50 mg tablet 0 07-03 00:00: 00 No 1mg naproxen 500 mg tablet 0 07-03 00:00: 00 No 1mg Dose Unknown 0 4 00:00: 00 No Dose Unknown 0 4 00:00: 00 No Dose Unknown 2021-0 4 00:00: 00 No omeprazole 40 mg capsule,del ayed release 0 07-03 00:00: 00 No 1mg sulconazole 1 % topical solution 0 07-03 00:00: 00 No 1% sulconazole 1 % topical solution 0 419 00:00: 00 No 1% Dose Unknown 2021-0 4-19 00:00: 00 No Dose Unknown 2021-0 4-19 00:00: 00 No Dose Unknown 2021-0 419 00:00: 00 No Dose Unknown 2021-0 419 00:00: 00 No Dose Unknown 2-0 4-19 00:00: 00 No Dose Unknown 2021-0 4-19 00:00: 00 No Dose Unknown 2-0 4-19 00:00: 00 No Dose Unknown 2021-0 419 00:00: 00 No Dose Unknown 2021-0 4-19 00:00: 00 No Dose Unknown 2021-0 4-19 00:00: 00 No Dose Unknown 2021-0 4-19 00:00: 00 No Dose Unknown 2022-0 4-19 00:00: 00 No Dose Unknown 2022-0 4-19 00:00: 00 No Dose Unknown 2022-0 4-19 00:00: 00 No Dose Unknown 2022-0 4-19 00:00: 00 No Dose Unknown 2022-0 4-19 00:00: 00 No Dose Unknown 2022-0 4-19 00:00: 00 No Dose Unknown 2022-0 4-19 00:00: 00 No Dose Unknown 2022-0 4-19 00:00: 00 No Dose Unknown 2022-0 4-19 00:00: 00 No Dose Unknown 2022-0 4-19 00:00: 00 No Dose Unknown 2022-0 4-19 00:00: 00 No Dose Unknown 2022-0 4-19 00:00: 00 No Dose Unknown 2022-0 4-19 00:00: 00 No Dose Unknown 2022-0 4-19 00:00: 00 No Dose Unknown 2022-0 4-19 00:00: 00 No Dose Unknown 2022-0 4-19 00:00: 00 No Dose Unknown 2022-0 4-19 00:00: 00 No Dose Unknown 2022-0 4-19 00:00: 00 No Dose Unknown 2022-0 4-19 00:00: 00 No Dose Unknown 2022-0 4-19 00:00: 00 No Dose Unknown 2022-0 4-19 00:00: 00 No Dose Unknown 2022-0 4-19 00:00: 00 No Dose Unknown 2022-0 4-19 00:00: 00 No Dose Unknown 2022-0 4-19 00:00: 00 No Dose Unknown 2022-0 4-19 00:00: 00 No Dose Unknown 2022-0 4-19 00:00: 00 No Dose Unknown 2022-0 4-19 00:00: 00 No Dose Unknown 2022-0 4-19 00:00: 00 No Dose Unknown 2022-0 4-19 00:00: 00 No Dose Unknown 2022-0 4-19 00:00: 00 No Dose Unknown 2022-0 4-19 00:00: 00 No Dose Unknown 2022-0 4-19 00:00: 00 No Dose Unknown 2022-0 4-19 00:00: 00 No Dose Unknown 2022-0 4-19 00:00: 00 No Dose Unknown 2022-0 4-19 00:00: 00 No Dose Unknown 2022-0 4-19 00:00: 00 No Dose Unknown 2022-0 4-19 00:00: 00 No Dose Unknown 2022-0 4-19 00:00: 00 No Dose Unknown 2022-0 4-19 00:00: 00 No Dose Unknown 2022-0 4-19 00:00: 00 No Dose Unknown 2022-0 4-19 00:00: 00 No Dose Unknown 2022-0 4-19 00:00: 00 No Dose Unknown 2022-0 4-19 00:00: 00 No Dose Unknown 2022-0 4-19 00:00: 00 No loratadine 10 mg tablet 2-0 4-19 00:00: 00 No 1mg Dose Unknown 2022-0 4-19 00:00: 00 No Dose Unknown 2022-0 4-19 00:00: 00 No Dose Unknown 2022-0 4-19 00:00: 00 No Dose Unknown 2022-0 4-19 00:00: 00 No Dose Unknown 2022-0 4-19 00:00: 00 No Dose Unknown 2022-0 4-19 00:00: 00 No Dose Unknown 2022-0 4-19 00:00: 00 No Dose Unknown 2022-0 4-19 00:00: 00 No Dose Unknown 2022-0 4-19 00:00: 00 No Dose Unknown 2022-0 4-19 00:00: 00 No Dose Unknown 2022-0 4-19 00:00: 00 No Dose Unknown 2022-0 4-19 00:00: 00 No Dose Unknown 2022-0 4-19 00:00: 00 No Dose Unknown 2022-0 4-19 00:00: 00 No Dose Unknown 2022-0 4-19 00:00: 00 No Dose Unknown 2022-0 4-19 00:00: 00 No Dose Unknown 2022-0 4-19 00:00: 00 No loratadine 10 mg tablet 2022-0 4-19 00:00: 00 No 1mg aspirin 81 mg tablet,katya yed release 2022-0 4-19 00:00: 00 No 1mg Nystop 100,000 unit/gram topical powder 2-0 4-19 00:00: 00 No 1unit/g isabel Nystop 100,000 unit/gram topical powder 07-03 00:00: 00 No 1unit/g isabel cholestyram ine (with sugar) 4 gram powder for susp in a packet 07-03 00:00: 00 No 4gram Dose Unknown 07-03 00:00: 00 No triamcinolo ne acetonide 0.025 % topical cream 07-03 00:00: 00 No 1% triamcinolo ne acetonide 0.025 % topical cream 07-03 00:00: 00 No 1% APPLY SPARINGLY TO AFFECTED AREA(S) TWICE DAILY 07-03 00:00: 00 No clobetasol 0.05 % shampoo 07-03 00:00: 00 No 1% Dose Unknown 07-03 00:00: 00 No Dose Unknown 07-03 00:00: 00 No clobetasol 0.05 % topical ointment 07-03 00:00: 00 No 1% APPLY SPARINGLY TO AFFECTED AREA(S) TWICE DAILY 07-03 00:00: 00 No clobetasol 0.05 % shampoo 07-03 00:00: 00 No 1% aspirin 81 mg tablet,katya yed release 07-03 00:00: 00 No 1mg loratadine 10 mg tablet 07-03 00:00: 00 No 1mg loratadine 10 mg tablet 07-03 00:00: 00 No 1mg aspirin 81 mg tablet,katya yed release 07-03 00:00: 00 No 1mg Dose Unknown 07-03 00:00: 00 No atenolol 100 mg tablet 07-03 00:00: 00 No 1mg metformin 1,000 mg tablet 07-03 00:00: 00 No 1mg glimepiride 4 mg tablet 07-03 00:00: 00 No 1mg diclofenac sodium 75 mg tablet,katya yed release 07-03 00:00: 00 No 1mg glimepiride 4 mg tablet 2021-0 4-19 00:00: 00 No 1mg atenolol 100 mg tablet 2-0 4-19 00:00: 00 No 1mg Dose Unknown 2021-0 4-19 00:00: 00 No metformin ER 500 mg tablet,exte nded release 24 hr 2021-0 4-19 00:00: 00 No 2mg naproxen 500 mg tablet 2-0 4-19 00:00: 00 No 1mg trazodone 50 mg tablet 2021-0 4-19 00:00: 00 No 1mg trazodone 50 mg tablet 2-0 4-19 00:00: 00 No 1mg naproxen 500 mg tablet 2021-0 4-19 00:00: 00 No 1mg Dose Unknown 2021-0 4-19 00:00: 00 No Dose Unknown 2021-0 4-19 00:00: 00 No Dose Unknown 2021-0 4-19 00:00: 00 No omeprazole 40 mg capsule,del ayed release 2021-0 4-19 00:00: 00 No 1mg sulconazole 1 % topical solution 2021-0 4-19 00:00: 00 No 1% sulconazole 1 % topical solution 2-0 4-19 00:00: 00 No 1% Dose Unknown 2-0 4-19 00:00: 00 No Dose Unknown 2-0 4-19 00:00: 00 No Dose Unknown 2-0 4-19 00:00: 00 No Dose Unknown 2-0 4-19 00:00: 00 No Dose Unknown 2-0 4-19 00:00: 00 No Dose Unknown 2-0 4-19 00:00: 00 No Dose Unknown 2-0 4-19 00:00: 00 No Dose Unknown 2022-0 4-19 00:00: 00 No Dose Unknown 2022-0 4-19 00:00: 00 No Dose Unknown 2022-0 4-19 00:00: 00 No Dose Unknown 2-0 4-19 00:00: 00 No Dose Unknown 2-0 4-19 00:00: 00 No Dose Unknown 2022-0 4-19 00:00: 00 No Dose Unknown 2-0 4-19 00:00: 00 No Dose Unknown 2022-0 4-19 00:00: 00 No Dose Unknown 2022-0 4-19 00:00: 00 No Dose Unknown 2022-0 4-19 00:00: 00 No Dose Unknown 2022-0 4-19 00:00: 00 No Dose Unknown 2022-0 4-19 00:00: 00 No Dose Unknown 2022-0 4-19 00:00: 00 No Dose Unknown 2022-0 4-19 00:00: 00 No Dose Unknown 2022-0 4-19 00:00: 00 No Dose Unknown 2022-0 4-19 00:00: 00 No Dose Unknown 2022-0 4-19 00:00: 00 No Dose Unknown 2022-0 4-19 00:00: 00 No Dose Unknown 2022-0 4-19 00:00: 00 No Dose Unknown 2022-0 4-19 00:00: 00 No Dose Unknown 2022-0 4-19 00:00: 00 No Dose Unknown 2022-0 4-19 00:00: 00 No Dose Unknown 2022-0 4-19 00:00: 00 No Dose Unknown 2022-0 4-19 00:00: 00 No Dose Unknown 2022-0 4-19 00:00: 00 No Dose Unknown 2022-0 4-19 00:00: 00 No Dose Unknown 2022-0 4-19 00:00: 00 No Dose Unknown 2022-0 4-19 00:00: 00 No Dose Unknown 2022-0 4-19 00:00: 00 No Dose Unknown 2022-0 4-19 00:00: 00 No Dose Unknown 2022-0 4-19 00:00: 00 No Dose Unknown 2022-0 4-19 00:00: 00 No Dose Unknown 2022-0 4-19 00:00: 00 No Dose Unknown 2022-0 4-19 00:00: 00 No Dose Unknown 2022-0 4-19 00:00: 00 No Dose Unknown 2022-0 4-19 00:00: 00 No Dose Unknown 2022-0 4-19 00:00: 00 No Dose Unknown 2022-0 4-19 00:00: 00 No Dose Unknown 2022-0 4-19 00:00: 00 No Dose Unknown 2022-0 4-19 00:00: 00 No Dose Unknown 2022-0 4-19 00:00: 00 No Dose Unknown 2022-0 4-19 00:00: 00 No Dose Unknown 2022-0 4-19 00:00: 00 No Dose Unknown 2022-0 4-19 00:00: 00 No Dose Unknown 2022-0 4-19 00:00: 00 No Dose Unknown 2022-0 4-19 00:00: 00 No Dose Unknown 2022-0 4-19 00:00: 00 No Dose Unknown 2022-0 4-19 00:00: 00 No Dose Unknown 2022-0 4-19 00:00: 00 No Dose Unknown 2022-0 4-19 00:00: 00 No Dose Unknown 2022-0 4-19 00:00: 00 No Dose Unknown 2022-0 4-19 00:00: 00 No Dose Unknown 2022-0 4-19 00:00: 00 No Dose Unknown 2022-0 4-19 00:00: 00 No Dose Unknown 2022-0 4-19 00:00: 00 No Dose Unknown 2022-0 4-19 00:00: 00 No Dose Unknown 2022-0 4-19 00:00: 00 No sertraline 50 mg tablet 2-0 4-19 00:00: 00 No 1mg Dose Unknown 2-0 4-19 00:00: 00 No Dose Unknown 2-0 4-19 00:00: 00 No Dose Unknown 2-0 4-19 00:00: 00 No Dose Unknown 2022-0 4-19 00:00: 00 No Dose Unknown 2022-0 4-19 00:00: 00 No Dose Unknown 2-0 4-19 00:00: 00 No Dose Unknown 2022-0 4-19 00:00: 00 No Dose Unknown 2022-0 4-19 00:00: 00 No atenolol 100 mg tablet 2-0 4-19 00:00: 00 No 1mg Nystop 100,000 unit/gram topical powder 2-0 4-19 00:00: 00 No 1unit/g isabel Nystop 100,000 unit/gram topical powder 2-0 4-19 00:00: 00 No 1unit/g isabel cholestyram ine (with sugar) 4 gram powder for susp in a packet 2021-0 4-19 00:00: 00 No 4gram Dose Unknown 07-03 00:00: 00 No metformin 1,000 mg tablet 07-03 00:00: 00 No 1mg triamcinolo ne acetonide 0.025 % topical cream 07-03 00:00: 00 No 1% Nystop 100,000 unit/gram topical powder 07-03 00:00: 00 No 1unit/g isabel Nystop 100,000 unit/gram topical powder 07-03 00:00: 00 No 1unit/g isabel cholestyram ine (with sugar) 4 gram powder for susp in a packet 07-03 00:00: 00 No 4gram Dose Unknown 07-03 00:00: 00 No triamcinolo ne acetonide 0.025 % topical cream 07-03 00:00: 00 No 1% triamcinolo ne acetonide 0.025 % topical cream 07-03 00:00: 00 No 1% APPLY SPARINGLY TO AFFECTED AREA(S) TWICE DAILY 07-03 00:00: 00 No clobetasol 0.05 % shampoo 07-03 00:00: 00 No 1% Dose Unknown 07-03 00:00: 00 No Dose Unknown 07-03 00:00: 00 No triamcinolo ne acetonide 0.025 % topical cream 07-03 00:00: 00 No 1% clobetasol 0.05 % topical ointment 07-03 00:00: 00 No 1% APPLY SPARINGLY TO AFFECTED AREA(S) TWICE DAILY 07-03 00:00: 00 No clobetasol 0.05 % shampoo 07-03 00:00: 00 No 1% aspirin 81 mg tablet,katya yed release 07-03 00:00: 00 No 1mg loratadine 10 mg tablet 07-03 00:00: 00 No 1mg loratadine 10 mg tablet 07-03 00:00: 00 No 1mg aspirin 81 mg tablet,katya yed release 07-03 00:00: 00 No 1mg Dose Unknown -19 00:00: 00 No atenolol 100 mg tablet 0 07-03 00:00: 00 No 1mg metformin 1,000 mg tablet 0 07-03 00:00: 00 No 1mg mupirocin 2 % topical ointment 07-03 00:00: 00 No 1% glimepiride 4 mg tablet 0 07-03 00:00: 00 No 1mg diclofenac sodium 75 mg tablet,katya yed release 07-03 00:00: 00 No 1mg glimepiride 4 mg tablet 07-03 00:00: 00 No 1mg atenolol 100 mg tablet 07-03 00:00: 00 No 1mg Dose Unknown 07-03 00:00: 00 No metformin ER 500 mg tablet,exte nded release 24 hr 07-03 00:00: 00 No 2mg naproxen 500 mg tablet 07-03 00:00: 00 No 1mg trazodone 50 mg tablet 07-03 00:00: 00 No 1mg trazodone 50 mg tablet 0 07-03 00:00: 00 No 1mg naproxen 500 mg tablet 07-03 00:00: 00 No 1mg clobetasol 0.05 % shampoo 07-03 00:00: 00 No 1% Dose Unknown 0 07-03 00:00: 00 No Dose Unknown 0 07-03 00:00: 00 No Dose Unknown 0 07-03 00:00: 00 No omeprazole 40 mg capsule,del ayed release 07-03 00:00: 00 No 1mg sulconazole 1 % topical solution 07-03 00:00: 00 No 1% sulconazole 1 % topical solution 0 07-03 00:00: 00 No 1% Dose Unknown 0 07-03 00:00: 00 No Dose Unknown 0 07-03 00:00: 00 No Dose Unknown 0 07-03 00:00: 00 No Dose Unknown 0 4-19 00:00: 00 No ketoconazol e 2 % shampoo 2022-0 4-19 00:00: 00 No 1% Dose Unknown 2022-0 4-19 00:00: 00 No Dose Unknown 2022-0 4-19 00:00: 00 No Dose Unknown 2022-0 4-19 00:00: 00 No Dose Unknown 2022-0 4-19 00:00: 00 No Dose Unknown 2022-0 4-19 00:00: 00 No Dose Unknown 2022-0 4-19 00:00: 00 No Dose Unknown 2022-0 4-19 00:00: 00 No Dose Unknown 2022-0 4-19 00:00: 00 No Dose Unknown 2022-0 4-19 00:00: 00 No Dose Unknown 2022-0 4-19 00:00: 00 No ketoconazol e 2 % shampoo 2022-0 4-19 00:00: 00 No 1% Dose Unknown 2022-0 4-19 00:00: 00 No Dose Unknown 2022-0 4-19 00:00: 00 No Dose Unknown 2022-0 4-19 00:00: 00 No Dose Unknown 2022-0 4-19 00:00: 00 No Dose Unknown 2022-0 4-19 00:00: 00 No Dose Unknown 2022-0 4-19 00:00: 00 No Dose Unknown 2022-0 4-19 00:00: 00 No Dose Unknown 2022-0 4-19 00:00: 00 No Dose Unknown 2022-0 4-19 00:00: 00 No Dose Unknown 2022-0 4-19 00:00: 00 No clobetasol 0.05 % topical ointment 2022-0 4-19 00:00: 00 No 1% Dose Unknown 2022-0 4-19 00:00: 00 No Dose Unknown 2022-0 4-19 00:00: 00 No Dose Unknown 2022-0 4-19 00:00: 00 No Dose Unknown 2022-0 4-19 00:00: 00 No Dose Unknown 2022-0 4-19 00:00: 00 No Dose Unknown 2022-0 4-19 00:00: 00 No Dose Unknown 2022-0 4-19 00:00: 00 No Dose Unknown 2022-0 4-19 00:00: 00 No Dose Unknown 2022-0 4-19 00:00: 00 No Dose Unknown 2022-0 4-19 00:00: 00 No mupirocin 2 % topical ointment 2022-0 4-19 00:00: 00 No 1% Dose Unknown 2022-0 4-19 00:00: 00 No Dose Unknown 2022-0 4-19 00:00: 00 No Dose Unknown 2022-0 4-19 00:00: 00 No Dose Unknown 2022-0 4-19 00:00: 00 No Dose Unknown 2022-0 4-19 00:00: 00 No Dose Unknown 2022-0 4-19 00:00: 00 No Dose Unknown 2022-0 4-19 00:00: 00 No Dose Unknown 2022-0 4-19 00:00: 00 No Dose Unknown 2022-0 4-19 00:00: 00 No Dose Unknown 2022-0 4-19 00:00: 00 No clobetasol 0.05 % shampoo 2022-0 4-19 00:00: 00 No 1% Dose Unknown 2022-0 4-19 00:00: 00 No Dose Unknown 2022-0 4-19 00:00: 00 No Dose Unknown 2022-0 4-19 00:00: 00 No Dose Unknown 2022-0 4-19 00:00: 00 No Dose Unknown 2022-0 4-19 00:00: 00 No Dose Unknown 2022-0 4-19 00:00: 00 No Dose Unknown 2022-0 4-19 00:00: 00 No Dose Unknown 2022-0 4-19 00:00: 00 No Dose Unknown 2022-0 4-19 00:00: 00 No Dose Unknown 2022-0 4-19 00:00: 00 No aspirin 81 mg tablet,katya yed release 2022-0 4-19 00:00: 00 No 1mg Dose Unknown 2022-0 4-19 00:00: 00 No Dose Unknown 2022-0 4-19 00:00: 00 No Dose Unknown 2022-0 4-19 00:00: 00 No Dose Unknown 2022-0 4-19 00:00: 00 No Dose Unknown 2022-0 4-19 00:00: 00 No Dose Unknown 2022-0 4-19 00:00: 00 No Dose Unknown 2022-0 4-19 00:00: 00 No Dose Unknown 0 07-03 00:00: 00 No Dose Unknown 0 07-03 00:00: 00 No Dose Unknown 0 07-03 00:00: 00 No glimepiride 4 mg tablet 0 07-03 00:00: 00 No 1mg loratadine 10 mg tablet 0 07-03 00:00: 00 No 1mg Dose Unknown 0 07-03 00:00: 00 No Dose Unknown 0 07-03 00:00: 00 No Dose Unknown 0 07-03 00:00: 00 No Dose Unknown 0 07-03 00:00: 00 No Dose Unknown 0 07-03 00:00: 00 No Dose Unknown 0 07-03 00:00: 00 No Dose Unknown 0 07-03 00:00: 00 No Dose Unknown 0 07-03 00:00: 00 No loratadine 10 mg tablet 0 07-03 00:00: 00 No 1mg aspirin 81 mg tablet,katya yed release 0 07-03 00:00: 00 No 1mg sertraline 50 mg tablet 0 07-03 00:00: 00 No 1mg atenolol 100 mg tablet 0 07-03 00:00: 00 No 1mg metformin 1,000 mg tablet 0 07-03 00:00: 00 No 1mg glimepiride 4 mg tablet 0 07-03 00:00: 00 No 1mg diclofenac sodium 75 mg tablet,katya yed release 0 07-03 00:00: 00 No 1mg glimepiride 4 mg tablet 0 07-03 00:00: 00 No 1mg atenolol 100 mg tablet 0 07-03 00:00: 00 No 1mg diclofenac sodium 75 mg tablet,katya yed release 0 07-03 00:00: 00 No 1mg sertraline 50 mg tablet 0 07-03 00:00: 00 No 1mg metformin ER 500 mg tablet,exte nded release 24 hr 0 07-03 00:00: 00 No 2mg naproxen 500 mg tablet 0 07-03 00:00: 00 No 1mg trazodone 50 mg tablet 0 07-03 00:00: 00 No 1mg trazodone 50 mg tablet 0 07-03 00:00: 00 No 1mg naproxen 500 mg tablet 0 07-03 00:00: 00 No 1mg gabapentin 300 mg capsule 0 07-03 00:00: 00 No 1mg gabapentin 300 mg capsule 0 07-03 00:00: 00 No 1mg Dose Unknown 0 07-03 00:00: 00 No omeprazole 40 mg capsule,del ayed release 07-03 00:00: 00 No 1mg glimepiride 4 mg tablet 07-03 00:00: 00 No 1mg sulconazole 1 % topical solution 07-03 00:00: 00 No 1% sulconazole 1 % topical solution 07-03 00:00: 00 No 1% Dose Unknown 0 07-03 00:00: 00 No Nystop 100,000 unit/gram topical powder 0 07-03 00:00: 00 No 1unit/g isabel Nystop 100,000 unit/gram topical powder 0 07-03 00:00: 00 No 1unit/g isabel Dose Unknown 0 07-03 00:00: 00 No Dose Unknown 0 07-03 00:00: 00 No APPLY SPARINGLY TO AFFECTED AREA(S) TWICE DAILY 0 07-03 00:00: 00 No APPLY SPARINGLY TO AFFECTED AREA(S) TWICE DAILY 0 07-03 00:00: 00 No Dose Unknown 0 07-03 00:00: 00 No Dose Unknown 0 07-03 00:00: 00 No Dose Unknown 0 07-03 00:00: 00 No Dose Unknown 0 07-03 00:00: 00 No Dose Unknown 0 07-03 00:00: 00 No Dose Unknown 0 07-03 00:00: 00 No Dose Unknown 0 07-03 00:00: 00 No Dose Unknown 0 07-03 00:00: 00 No Dose Unknown 2022-0 4-19 00:00: 00 No Dose Unknown 2022-0 4-19 00:00: 00 No Dose Unknown 2022-0 4-19 00:00: 00 No Dose Unknown 2022-0 4-19 00:00: 00 No Dose Unknown 2022-0 4-19 00:00: 00 No Dose Unknown 2022-0 4-19 00:00: 00 No Dose Unknown 2022-0 4-19 00:00: 00 No Dose Unknown 2022-0 4-19 00:00: 00 No Dose Unknown 2022-0 4-19 00:00: 00 No Dose Unknown 2022-0 4-19 00:00: 00 No Dose Unknown 2022-0 4-19 00:00: 00 No Dose Unknown 2022-0 4-19 00:00: 00 No Dose Unknown 2022-0 4-19 00:00: 00 No Dose Unknown 2022-0 4-19 00:00: 00 No Dose Unknown 2022-0 4-19 00:00: 00 No Dose Unknown 2022-0 4-19 00:00: 00 No Dose Unknown 2022-0 4-19 00:00: 00 No Dose Unknown 2022-0 4-19 00:00: 00 No Dose Unknown 2022-0 4-19 00:00: 00 No TAKE 1 CAPSULE TWICE DAILY. 2022-0 4-19 00:00: 00 No TAKE 1 CAPSULE TWICE DAILY. 2022-0 4-19 00:00: 00 No Dose Unknown 2022-0 4-19 00:00: 00 No Dose Unknown 2022-0 4-19 00:00: 00 No Dose Unknown 2022-0 4-19 00:00: 00 No Dose Unknown 2022-0 4-19 00:00: 00 No Dose Unknown 2022-0 4-19 00:00: 00 No Dose Unknown 2022-0 4-19 00:00: 00 No Dose Unknown 2022-0 4-19 00:00: 00 No Dose Unknown 2022-0 4-19 00:00: 00 No Dose Unknown 2022-0 4-19 00:00: 00 No Dose Unknown 2022-0 4-19 00:00: 00 No Dose Unknown 2022-0 4-19 00:00: 00 No Dose Unknown 2022-0 4-19 00:00: 00 No Dose Unknown 2022-0 4-19 00:00: 00 No Dose Unknown 2022-0 4-19 00:00: 00 No Dose Unknown 2022-0 4-19 00:00: 00 No Dose Unknown 2022-0 4-19 00:00: 00 No Dose Unknown 2022-0 4-19 00:00: 00 No Dose Unknown 2022-0 4-19 00:00: 00 No Dose Unknown 2022-0 4-19 00:00: 00 No Dose Unknown 2022-0 4-19 00:00: 00 No Dose Unknown 2022-0 4-19 00:00: 00 No Dose Unknown 2022-0 4-19 00:00: 00 No Dose Unknown 2022-0 4-19 00:00: 00 No Dose Unknown 2022-0 4-19 00:00: 00 No Dose Unknown 2022-0 4-19 00:00: 00 No Dose Unknown 2022-0 4-19 00:00: 00 No Dose Unknown 2022-0 4-19 00:00: 00 No Dose Unknown 2022-0 4-19 00:00: 00 No Dose Unknown 2022-0 4-19 00:00: 00 No Dose Unknown 2022-0 4-19 00:00: 00 No Dose Unknown 2022-0 4-19 00:00: 00 No Dose Unknown 2022-0 4-19 00:00: 00 No Dose Unknown 2022-0 4-19 00:00: 00 No Dose Unknown 2022-0 4-19 00:00: 00 No Dose Unknown 2022-0 4-19 00:00: 00 No Dose Unknown 2022-0 4-19 00:00: 00 No Dose Unknown 2022-0 4-19 00:00: 00 No Dose Unknown 2022-0 4-19 00:00: 00 No Dose Unknown 2022-0 4-19 00:00: 00 No Dose Unknown 2022-0 4-19 00:00: 00 No Dose Unknown 2022-0 4-19 00:00: 00 No Dose Unknown 2022-0 4-19 00:00: 00 No Dose Unknown 2022-0 4-19 00:00: 00 No Dose Unknown 2022-0 4-19 00:00: 00 No Dose Unknown 2022-0 4-19 00:00: 00 No Dose Unknown 2022-0 4-19 00:00: 00 No Dose Unknown 2022-0 4-19 00:00: 00 No Dose Unknown 2022-0 4-19 00:00: 00 No Dose Unknown 2022-0 4-19 00:00: 00 No Dose Unknown 2022-0 4-19 00:00: 00 No Dose Unknown 2022-0 4-19 00:00: 00 No Dose Unknown 2022-0 4-19 00:00: 00 No atenolol 100 mg tablet 2022-0 4-19 00:00: 00 No 1mg Dose Unknown 2022-0 4-19 00:00: 00 No Dose Unknown 2022-0 4-19 00:00: 00 No Dose Unknown 2022-0 4-19 00:00: 00 No Dose Unknown 2022-0 4-19 00:00: 00 No Dose Unknown 2022-0 4-19 00:00: 00 No Dose Unknown 2022-0 4-19 00:00: 00 No Dose Unknown 2022-0 4-19 00:00: 00 No Dose Unknown 2022-0 4-19 00:00: 00 No Dose Unknown 2022-0 4-19 00:00: 00 No Dose Unknown 2022-0 4-19 00:00: 00 No Dose Unknown 2022-0 4-19 00:00: 00 No Dose Unknown 2022-0 4-19 00:00: 00 No Dose Unknown 2022-0 4-19 00:00: 00 No Dose Unknown 2022-0 4-19 00:00: 00 No Dose Unknown 2022-0 4-19 00:00: 00 No Dose Unknown 2022-0 4-19 00:00: 00 No Dose Unknown 2022-0 4-19 00:00: 00 No Dose Unknown 2022-0 4-19 00:00: 00 No Dose Unknown 2022-0 4-19 00:00: 00 No Dose Unknown 2022-0 4-19 00:00: 00 No Dose Unknown 2022-0 4-19 00:00: 00 No Dose Unknown 2022-0 4-19 00:00: 00 No Dose Unknown 2022-0 4-19 00:00: 00 No Dose Unknown 2022-0 4-19 00:00: 00 No Dose Unknown 2022-0 4-19 00:00: 00 No Dose Unknown 2022-0 4-19 00:00: 00 No Dose Unknown 2022-0 4-19 00:00: 00 No Dose Unknown 2022-0 4-19 00:00: 00 No Dose Unknown 2022-0 4-19 00:00: 00 No Dose Unknown 2022-0 4-19 00:00: 00 No Dose Unknown 2022-0 4-19 00:00: 00 No Dose Unknown 2022-0 4-19 00:00: 00 No Dose Unknown 2022-0 4-19 00:00: 00 No Dose Unknown 2022-0 4-19 00:00: 00 No Dose Unknown 2022-0 4-19 00:00: 00 No Dose Unknown 2022-0 4-19 00:00: 00 No Dose Unknown 2022-0 4-19 00:00: 00 No Dose Unknown 2022-0 4-19 00:00: 00 No sertraline 50 mg tablet 2022-0 4-19 00:00: 00 No 1mg Dose Unknown 2022-0 4-19 00:00: 00 No Dose Unknown 2022-0 4-19 00:00: 00 No Dose Unknown 2022-0 4-19 00:00: 00 No Dose Unknown 2022-0 4-19 00:00: 00 No Dose Unknown 2022-0 4-19 00:00: 00 No Dose Unknown 2022-0 4-19 00:00: 00 No Dose Unknown 2022-0 4-19 00:00: 00 No Dose Unknown 2022-0 4-19 00:00: 00 No Dose Unknown 2022-0 4-19 00:00: 00 No Dose Unknown 2022-0 4-19 00:00: 00 No metformin ER 500 mg tablet,exte nded release 24 hr 2022-0 4-19 00:00: 00 No 2mg Dose Unknown 2022-0 4-19 00:00: 00 No Dose Unknown 2022-0 4-19 00:00: 00 No Dose Unknown 2022-0 4-19 00:00: 00 No Dose Unknown 2022-0 4-19 00:00: 00 No Dose Unknown 2022-0 4-19 00:00: 00 No Dose Unknown 2022-0 4-19 00:00: 00 No Dose Unknown 2022-0 4-19 00:00: 00 No Dose Unknown 2022-0 4-19 00:00: 00 No Dose Unknown 2022-0 4-19 00:00: 00 No Dose Unknown 2022-0 4-19 00:00: 00 No naproxen 500 mg tablet 2022-0 4-19 00:00: 00 No 1mg Dose Unknown 2022-0 4-19 00:00: 00 No Dose Unknown 2022-0 4-19 00:00: 00 No Dose Unknown 2022-0 4-19 00:00: 00 No Nystop 100,000 unit/gram topical powder 2022-0 4-19 00:00: 00 No 1unit/g isabel Dose Unknown 2022-0 4-19 00:00: 00 No Nystop 100,000 unit/gram topical powder 2022-0 4-19 00:00: 00 No 1unit/g isabel Dose Unknown 2022-0 4-19 00:00: 00 No Dose Unknown 2022-0 4-19 00:00: 00 No APPLY SPARINGLY TO AFFECTED AREA(S) TWICE DAILY 2022-0 4-19 00:00: 00 No APPLY SPARINGLY TO AFFECTED AREA(S) TWICE DAILY 2022-0 4-19 00:00: 00 No Dose Unknown 2022-0 4-19 00:00: 00 No Dose Unknown 2022-0 4-19 00:00: 00 No Dose Unknown 2022-0 4-19 00:00: 00 No Dose Unknown 2022-0 4-19 00:00: 00 No Dose Unknown 2022-0 4-19 00:00: 00 No Dose Unknown 2022-0 4-19 00:00: 00 No Dose Unknown 2022-0 4-19 00:00: 00 No Dose Unknown 2022-0 4-19 00:00: 00 No Dose Unknown 2022-0 4-19 00:00: 00 No Dose Unknown 2022-0 4-19 00:00: 00 No Dose Unknown 2022-0 4-19 00:00: 00 No Dose Unknown 2022-0 4-19 00:00: 00 No Dose Unknown 2022-0 4-19 00:00: 00 No Dose Unknown 2022-0 4-19 00:00: 00 No Dose Unknown 2022-0 4-19 00:00: 00 No Dose Unknown 2022-0 4-19 00:00: 00 No Dose Unknown 2022-0 4-19 00:00: 00 No Dose Unknown 2022-0 4-19 00:00: 00 No Dose Unknown 2022-0 4-19 00:00: 00 No Dose Unknown 2022-0 4-19 00:00: 00 No Dose Unknown 2022-0 4-19 00:00: 00 No Dose Unknown 2022-0 4-19 00:00: 00 No Dose Unknown 2022-0 4-19 00:00: 00 No TAKE 1 CAPSULE TWICE DAILY. 2022-0 4-19 00:00: 00 No TAKE 1 CAPSULE TWICE DAILY. 2022-0 4-19 00:00: 00 No Dose Unknown 2022-0 4-19 00:00: 00 No Dose Unknown 2022-0 4-19 00:00: 00 No Dose Unknown 2022-0 4-19 00:00: 00 No Dose Unknown 2022-0 4-19 00:00: 00 No Dose Unknown 2022-0 4-19 00:00: 00 No Dose Unknown 2022-0 4-19 00:00: 00 No Dose Unknown 2022-0 4-19 00:00: 00 No Dose Unknown 2022-0 4-19 00:00: 00 No Dose Unknown 2022-0 4-19 00:00: 00 No Dose Unknown 2022-0 4-19 00:00: 00 No Dose Unknown 2022-0 4-19 00:00: 00 No Dose Unknown 2022-0 4-19 00:00: 00 No Dose Unknown 2022-0 4-19 00:00: 00 No Dose Unknown 2022-0 4-19 00:00: 00 No Dose Unknown 2022-0 4-19 00:00: 00 No Dose Unknown 2022-0 4-19 00:00: 00 No Dose Unknown 2022-0 4-19 00:00: 00 No Dose Unknown 2022-0 4-19 00:00: 00 No Dose Unknown 2022-0 4-19 00:00: 00 No Dose Unknown 2022-0 4-19 00:00: 00 No Dose Unknown 2022-0 4-19 00:00: 00 No Dose Unknown 2022-0 4-19 00:00: 00 No Dose Unknown 2022-0 4-19 00:00: 00 No Dose Unknown 2022-0 4-19 00:00: 00 No Dose Unknown 2022-0 4-19 00:00: 00 No Dose Unknown 2022-0 4-19 00:00: 00 No Dose Unknown 2022-0 4-19 00:00: 00 No Dose Unknown 2022-0 4-19 00:00: 00 No Dose Unknown 2022-0 4-19 00:00: 00 No Dose Unknown 2022-0 4-19 00:00: 00 No Dose Unknown 2022-0 4-19 00:00: 00 No Dose Unknown 2022-0 4-19 00:00: 00 No Dose Unknown 2022-0 4-19 00:00: 00 No Dose Unknown 2022-0 4-19 00:00: 00 No Dose Unknown 2022-0 4-19 00:00: 00 No Dose Unknown 2022-0 4-19 00:00: 00 No Dose Unknown 2022-0 4-19 00:00: 00 No Dose Unknown 2022-0 4-19 00:00: 00 No Dose Unknown 2022-0 4-19 00:00: 00 No Dose Unknown 2022-0 4-19 00:00: 00 No Dose Unknown 2022-0 4-19 00:00: 00 No Dose Unknown 2022-0 4-19 00:00: 00 No Dose Unknown 2022-0 4-19 00:00: 00 No Dose Unknown 2022-0 4-19 00:00: 00 No Dose Unknown 2022-0 4-19 00:00: 00 No Dose Unknown 2022-0 4-19 00:00: 00 No trazodone 50 mg tablet 2022-0 4-19 00:00: 00 No 1mg Dose Unknown 2022-0 4-19 00:00: 00 No Dose Unknown 2022-0 4-19 00:00: 00 No Dose Unknown 2022-0 4-19 00:00: 00 No Dose Unknown 2022-0 4-19 00:00: 00 No Dose Unknown 2022-0 4-19 00:00: 00 No Dose Unknown 2022-0 4-19 00:00: 00 No Dose Unknown 2022-0 4-19 00:00: 00 No Dose Unknown 2022-0 4-19 00:00: 00 No Dose Unknown 2022-0 4-19 00:00: 00 No Dose Unknown 2022-0 4-19 00:00: 00 No Dose Unknown 2022-0 4-19 00:00: 00 No Dose Unknown 2022-0 4-19 00:00: 00 No Dose Unknown 2022-0 4-19 00:00: 00 No Dose Unknown 2022-0 4-19 00:00: 00 No Dose Unknown 2022-0 4-19 00:00: 00 No Dose Unknown 2022-0 4-19 00:00: 00 No Dose Unknown 2022-0 4-19 00:00: 00 No Dose Unknown 2022-0 4-19 00:00: 00 No Dose Unknown 2022-0 4-19 00:00: 00 No Dose Unknown 2022-0 4-19 00:00: 00 No Dose Unknown 2022-0 4-19 00:00: 00 No Dose Unknown 2022-0 4-19 00:00: 00 No Dose Unknown 2022-0 4-19 00:00: 00 No Dose Unknown 2022-0 4-19 00:00: 00 No Dose Unknown 2022-0 4-19 00:00: 00 No Dose Unknown 2022-0 4-19 00:00: 00 No Dose Unknown 2022-0 4-19 00:00: 00 No Dose Unknown 2022-0 4-19 00:00: 00 No Dose Unknown 2022-0 4-19 00:00: 00 No Dose Unknown 2022-0 4-19 00:00: 00 No Dose Unknown 2022-0 4-19 00:00: 00 No Dose Unknown 2022-0 4-19 00:00: 00 No Dose Unknown 2022-0 4-19 00:00: 00 No Dose Unknown 2022-0 4-19 00:00: 00 No Dose Unknown 2022-0 4-19 00:00: 00 No Dose Unknown 2022-0 4-19 00:00: 00 No Dose Unknown 2022-0 4-19 00:00: 00 No Dose Unknown 2022-0 4-19 00:00: 00 No Dose Unknown 2022-0 4-19 00:00: 00 No Dose Unknown 2022-0 4-19 00:00: 00 No Dose Unknown 2022-0 4-19 00:00: 00 No Dose Unknown 2022-0 4-19 00:00: 00 No Dose Unknown 2022-0 4-19 00:00: 00 No Dose Unknown 2022-0 4-19 00:00: 00 No trazodone 50 mg tablet 2-0 419 00:00: 00 No 1mg Dose Unknown 2022-0 419 00:00: 00 No Dose Unknown 2022-0 4-19 00:00: 00 No Dose Unknown 2022-0 419 00:00: 00 No Dose Unknown 2022-0 419 00:00: 00 No Dose Unknown 2-0 419 00:00: 00 No Dose Unknown 2-0 419 00:00: 00 No Dose Unknown 2022-0 419 00:00: 00 No Dose Unknown 2022-0 419 00:00: 00 No Dose Unknown 2-0 419 00:00: 00 No Dose Unknown 2022-0 419 00:00: 00 No naproxen 500 mg tablet 2-0 419 00:00: 00 No 1mg Dose Unknown 2021-0 419 00:00: 00 No Dose Unknown 2-0 419 00:00: 00 No Dose Unknown 2-0 419 00:00: 00 No Dose Unknown 2-0 419 00:00: 00 No gabapentin 300 mg capsule 2-0 419 00:00: 00 No 1mg Nystop 100,000 unit/gram topical powder 2-0 419 00:00: 00 No 1unit/g isabel Nystop 100,000 unit/gram topical powder 2-0 419 00:00: 00 No 1unit/g isabel Dose Unknown 2-0 419 00:00: 00 No Dose Unknown 2-0 419 00:00: 00 No APPLY SPARINGLY TO AFFECTED AREA(S) TWICE DAILY 2-0 4-19 00:00: 00 No APPLY SPARINGLY TO AFFECTED AREA(S) TWICE DAILY 2-0 4-19 00:00: 00 No Dose Unknown 2022-0 419 00:00: 00 No Dose Unknown 2022-0 419 00:00: 00 No Dose Unknown 2-0 4-19 00:00: 00 No Dose Unknown 2022-0 4-19 00:00: 00 No Dose Unknown 2022-0 419 00:00: 00 No Dose Unknown 2022-0 4-19 00:00: 00 No Dose Unknown 2022-0 4-19 00:00: 00 No Dose Unknown 2022-0 4-19 00:00: 00 No Dose Unknown 2022-0 4-19 00:00: 00 No Dose Unknown 2022-0 4-19 00:00: 00 No Dose Unknown 2022-0 4-19 00:00: 00 No Dose Unknown 2022-0 4-19 00:00: 00 No Dose Unknown 2022-0 4-19 00:00: 00 No Dose Unknown 2022-0 4-19 00:00: 00 No Dose Unknown 2022-0 4-19 00:00: 00 No Dose Unknown 2022-0 4-19 00:00: 00 No Dose Unknown 2022-0 4-19 00:00: 00 No Dose Unknown 2022-0 4-19 00:00: 00 No Dose Unknown 2022-0 4-19 00:00: 00 No Dose Unknown 2022-0 4-19 00:00: 00 No Dose Unknown 2022-0 4-19 00:00: 00 No TAKE 1 CAPSULE TWICE DAILY. 2022-0 4-19 00:00: 00 No TAKE 1 CAPSULE TWICE DAILY. 2022-0 4-19 00:00: 00 No Dose Unknown 2022-0 4-19 00:00: 00 No Dose Unknown 2022-0 4-19 00:00: 00 No Dose Unknown 2022-0 4-19 00:00: 00 No Dose Unknown 2022-0 4-19 00:00: 00 No Dose Unknown 2022-0 4-19 00:00: 00 No Dose Unknown 2022-0 4-19 00:00: 00 No Dose Unknown 2022-0 4-19 00:00: 00 No Dose Unknown 2022-0 4-19 00:00: 00 No Dose Unknown 2022-0 4-19 00:00: 00 No Dose Unknown 2022-0 4-19 00:00: 00 No Dose Unknown 2022-0 4-19 00:00: 00 No Dose Unknown 2022-0 4-19 00:00: 00 No Dose Unknown 2022-0 4-19 00:00: 00 No Dose Unknown 2022-0 4-19 00:00: 00 No Dose Unknown 2022-0 4-19 00:00: 00 No Dose Unknown 2022-0 4-19 00:00: 00 No Dose Unknown 2022-0 4-19 00:00: 00 No Dose Unknown 2022-0 4-19 00:00: 00 No Dose Unknown 2022-0 4-19 00:00: 00 No Dose Unknown 2022-0 4-19 00:00: 00 No Dose Unknown 2022-0 4-19 00:00: 00 No Dose Unknown 2022-0 4-19 00:00: 00 No Dose Unknown 2022-0 4-19 00:00: 00 No Dose Unknown 2022-0 4-19 00:00: 00 No Dose Unknown 2022-0 4-19 00:00: 00 No Dose Unknown 2022-0 4-19 00:00: 00 No Dose Unknown 2022-0 4-19 00:00: 00 No Dose Unknown 2022-0 4-19 00:00: 00 No Dose Unknown 2022-0 4-19 00:00: 00 No Dose Unknown 2022-0 4-19 00:00: 00 No Dose Unknown 2022-0 4-19 00:00: 00 No Dose Unknown 2022-0 4-19 00:00: 00 No Dose Unknown 2022-0 4-19 00:00: 00 No Dose Unknown 2022-0 4-19 00:00: 00 No Dose Unknown 2022-0 4-19 00:00: 00 No Dose Unknown 2022-0 4-19 00:00: 00 No Dose Unknown 2022-0 4-19 00:00: 00 No Dose Unknown 2022-0 4-19 00:00: 00 No Dose Unknown 2022-0 4-19 00:00: 00 No gabapentin 300 mg capsule 2022-0 4-19 00:00: 00 No 1mg Dose Unknown 2022-0 4-19 00:00: 00 No Dose Unknown 2022-0 4-19 00:00: 00 No Dose Unknown 2022-0 4-19 00:00: 00 No Dose Unknown 2022-0 4-19 00:00: 00 No Dose Unknown 2022-0 4-19 00:00: 00 No Dose Unknown 2022-0 4-19 00:00: 00 No Dose Unknown 2022-0 4-19 00:00: 00 No Dose Unknown 2022-0 4-19 00:00: 00 No Dose Unknown 2022-0 4-19 00:00: 00 No Dose Unknown 2022-0 4-19 00:00: 00 No Dose Unknown 2022-0 4-19 00:00: 00 No Dose Unknown 2022-0 4-19 00:00: 00 No Dose Unknown 2022-0 4-19 00:00: 00 No Dose Unknown 2022-0 4-19 00:00: 00 No Dose Unknown 2022-0 4-19 00:00: 00 No Dose Unknown 2022-0 4-19 00:00: 00 No Dose Unknown 2022-0 4-19 00:00: 00 No Dose Unknown 2022-0 4-19 00:00: 00 No Dose Unknown 2022-0 4-19 00:00: 00 No Dose Unknown 2022-0 4-19 00:00: 00 No Dose Unknown 2022-0 4-19 00:00: 00 No Dose Unknown 2022-0 4-19 00:00: 00 No Dose Unknown 2022-0 4-19 00:00: 00 No Dose Unknown 2022-0 4-19 00:00: 00 No Dose Unknown 2022-0 4-19 00:00: 00 No Dose Unknown 2022-0 4-19 00:00: 00 No Dose Unknown 2022-0 4-19 00:00: 00 No Dose Unknown 2022-0 4-19 00:00: 00 No Dose Unknown 2022-0 4-19 00:00: 00 No Dose Unknown 2022-0 4-19 00:00: 00 No Dose Unknown 2022-0 4-19 00:00: 00 No Dose Unknown 2022-0 4-19 00:00: 00 No Dose Unknown 2022-0 4-19 00:00: 00 No Dose Unknown 2022-0 4-19 00:00: 00 No Dose Unknown 2022-0 4-19 00:00: 00 No Dose Unknown 2022-0 4-19 00:00: 00 No Dose Unknown 2022-0 4-19 00:00: 00 No Dose Unknown 2022-0 4-19 00:00: 00 No omeprazole 40 mg capsule,del ayed release 2022-0 4-19 00:00: 00 No 1mg sulconazole 1 % topical solution 2022-0 4-19 00:00: 00 No 1% sulconazole 1 % topical solution 07-03 00:00: 00 No 1% Nystop 100,000 unit/gram topical powder 07-03 00:00: 00 No 1unit/g isabel Dose Unknown 07-03 00:00: 00 No Dose Unknown 07-03 00:00: 00 No Dose Unknown 07-03 00:00: 00 No Dose Unknown 07-03 00:00: 00 No Nystop 100,000 unit/gram topical powder 07-03 00:00: 00 No 1unit/g isabel Nystop 100,000 unit/gram topical powder 07-03 00:00: 00 No 1unit/g isabel cholestyram ine (with sugar) 4 gram powder for susp in a packet 07-03 00:00: 00 No 4gram Dose Unknown 07-03 00:00: 00 No triamcinolo ne acetonide 0.025 % topical cream 07-03 00:00: 00 No 1% triamcinolo ne acetonide 0.025 % topical cream 07-03 00:00: 00 No 1% mupirocin 2 % topical ointment 07-03 00:00: 00 No 1% clobetasol 0.05 % shampoo 07-03 00:00: 00 No 1% ketoconazol e 2 % shampoo 07-03 00:00: 00 No 1% ketoconazol e 2 % shampoo 07-03 00:00: 00 No 1% Dose Unknown 07-03 00:00: 00 No clobetasol 0.05 % topical ointment 07-03 00:00: 00 No 1% mupirocin 2 % topical ointment 07-03 00:00: 00 No 1% clobetasol 0.05 % shampoo 07-03 00:00: 00 No 1% aspirin 81 mg tablet,katya yed release 07-03 00:00: 00 No 1mg loratadine 10 mg tablet 07-03 00:00: 00 No 1mg loratadine 10 mg tablet 0 07-03 00:00: 00 No 1mg aspirin 81 mg tablet,katya yed release 07-03 00:00: 00 No 1mg sertraline 50 mg tablet 07-03 00:00: 00 No 1mg atenolol 100 mg tablet 0 07-03 00:00: 00 No 1mg metformin 1,000 mg tablet 07-03 00:00: 00 No 1mg Dose Unknown 07-03 00:00: 00 No glimepiride 4 mg tablet 07-03 00:00: 00 No 1mg diclofenac sodium 75 mg tablet,katya yed release 07-03 00:00: 00 No 1mg glimepiride 4 mg tablet 07-03 00:00: 00 No 1mg atenolol 100 mg tablet 07-03 00:00: 00 No 1mg sertraline 50 mg tablet 07-03 00:00: 00 No 1mg metformin ER 500 mg tablet,exte nded release 24 hr 07-03 00:00: 00 No 2mg naproxen 500 mg tablet 07-03 00:00: 00 No 1mg trazodone 50 mg tablet 07-03 00:00: 00 No 1mg trazodone 50 mg tablet 07-03 00:00: 00 No 1mg naproxen 500 mg tablet 07-03 00:00: 00 No 1mg Dose Unknown 07-03 00:00: 00 No gabapentin 300 mg capsule 0 07-03 00:00: 00 No 1mg gabapentin 300 mg capsule 0 07-03 00:00: 00 No 1mg Dose Unknown 07-03 00:00: 00 No omeprazole 40 mg capsule,del ayed release 07-03 00:00: 00 No 1mg sulconazole 1 % topical solution 0 07-03 00:00: 00 No 1% sulconazole 1 % topical solution 0 07-03 00:00: 00 No 1% Dose Unknown 2022-0 4-19 00:00: 00 No Dose Unknown 2022-0 4-19 00:00: 00 No Dose Unknown 2022-0 4-19 00:00: 00 No Dose Unknown 2022-0 4-19 00:00: 00 No Dose Unknown 2022-0 4-19 00:00: 00 No Dose Unknown 2022-0 4-19 00:00: 00 No Dose Unknown 2022-0 4-19 00:00: 00 No Dose Unknown 2022-0 4-19 00:00: 00 No Dose Unknown 2022-0 4-19 00:00: 00 No Dose Unknown 2022-0 4-19 00:00: 00 No Dose Unknown 2022-0 4-19 00:00: 00 No Dose Unknown 2022-0 4-19 00:00: 00 No Dose Unknown 2022-0 4-19 00:00: 00 No Dose Unknown 2022-0 4-19 00:00: 00 No Dose Unknown 2022-0 4-19 00:00: 00 No Dose Unknown 2022-0 4-19 00:00: 00 No Dose Unknown 2022-0 4-19 00:00: 00 No Dose Unknown 2022-0 4-19 00:00: 00 No Dose Unknown 2022-0 4-19 00:00: 00 No Dose Unknown 2022-0 4-19 00:00: 00 No Dose Unknown 2022-0 4-19 00:00: 00 No Dose Unknown 2022-0 4-19 00:00: 00 No Dose Unknown 2022-0 4-19 00:00: 00 No Dose Unknown 2022-0 4-19 00:00: 00 No Dose Unknown 2022-0 4-19 00:00: 00 No Dose Unknown 2022-0 4-19 00:00: 00 No Dose Unknown 2022-0 4-19 00:00: 00 No Dose Unknown 2022-0 4-19 00:00: 00 No Dose Unknown 2022-0 4-19 00:00: 00 No Dose Unknown 2022-0 4-19 00:00: 00 No Dose Unknown 2022-0 4-19 00:00: 00 No Dose Unknown 2022-0 4-19 00:00: 00 No Dose Unknown 2022-0 4-19 00:00: 00 No Dose Unknown 2022-0 4-19 00:00: 00 No Dose Unknown 2022-0 4-19 00:00: 00 No Dose Unknown 2022-0 4-19 00:00: 00 No Dose Unknown 2022-0 4-19 00:00: 00 No Nystop 100,000 unit/gram topical powder 2022-0 4-19 00:00: 00 No 1unit/g isabel Dose Unknown 2022-0 4-19 00:00: 00 No Dose Unknown 2022-0 4-19 00:00: 00 No Dose Unknown 2022-0 4-19 00:00: 00 No Dose Unknown 2022-0 4-19 00:00: 00 No Dose Unknown 2022-0 4-19 00:00: 00 No Dose Unknown 2022-0 4-19 00:00: 00 No Dose Unknown 2022-0 4-19 00:00: 00 No Dose Unknown 2022-0 4-19 00:00: 00 No Dose Unknown 2022-0 4-19 00:00: 00 No Dose Unknown 2022-0 4-19 00:00: 00 No Dose Unknown 2022-0 4-19 00:00: 00 No Dose Unknown 2022-0 4-19 00:00: 00 No Dose Unknown 2022-0 4-19 00:00: 00 No Dose Unknown 2022-0 4-19 00:00: 00 No Dose Unknown 2022-0 4-19 00:00: 00 No Dose Unknown 2022-0 4-19 00:00: 00 No Dose Unknown 2022-0 4-19 00:00: 00 No Dose Unknown 2022-0 4-19 00:00: 00 No Dose Unknown 2022-0 4-19 00:00: 00 No Dose Unknown 2022-0 4-19 00:00: 00 No Dose Unknown 2022-0 4-19 00:00: 00 No Dose Unknown 2022-0 4-19 00:00: 00 No Dose Unknown 2022-0 4-19 00:00: 00 No Dose Unknown 2022-0 4-19 00:00: 00 No Dose Unknown 2022-0 4-19 00:00: 00 No Dose Unknown 2022-0 4-19 00:00: 00 No Dose Unknown 2022-0 4-19 00:00: 00 No Dose Unknown 2022-0 4-19 00:00: 00 No Dose Unknown 2022-0 4-19 00:00: 00 No Dose Unknown 2022-0 4-19 00:00: 00 No Dose Unknown 2022-0 4-19 00:00: 00 No Dose Unknown 2022-0 4-19 00:00: 00 No Dose Unknown 2022-0 4-19 00:00: 00 No Dose Unknown 2022-0 4-19 00:00: 00 No Dose Unknown 2022-0 4-19 00:00: 00 No Dose Unknown 2022-0 4-19 00:00: 00 No Dose Unknown 2022-0 4-19 00:00: 00 No Dose Unknown 2022-0 4-19 00:00: 00 No Dose Unknown 2022-0 4-19 00:00: 00 No Dose Unknown 2022-0 4-19 00:00: 00 No Dose Unknown 2022-0 4-19 00:00: 00 No Dose Unknown 2022-0 4-19 00:00: 00 No Dose Unknown 2022-0 4-19 00:00: 00 No Dose Unknown 2022-0 4-19 00:00: 00 No Dose Unknown 2022-0 4-19 00:00: 00 No Dose Unknown 2022-0 4-19 00:00: 00 No Dose Unknown 2022-0 4-19 00:00: 00 No Dose Unknown 2022-0 4-19 00:00: 00 No cholestyram ine (with sugar) 4 gram powder for susp in a packet 2-0 4-19 00:00: 00 No 4gram Dose Unknown 2022-0 4-19 00:00: 00 No Dose Unknown 2022-0 4-19 00:00: 00 No Dose Unknown 2022-0 4-19 00:00: 00 No Dose Unknown 2022-0 4-19 00:00: 00 No Dose Unknown 2022-0 4-19 00:00: 00 No Nystop 100,000 unit/gram topical powder 2-0 4-19 00:00: 00 No 1unit/g isabel Nystop 100,000 unit/gram topical powder 2022-0 4-19 00:00: 00 No 1unit/g isabel cholestyram ine (with sugar) 4 gram powder for susp in a packet 2-0 4-19 00:00: 00 No 4gram Dose Unknown 2022-0 4-19 00:00: 00 No triamcinolo ne acetonide 0.025 % topical cream 0 07-03 00:00: 00 No 1% Dose Unknown 07-03 00:00: 00 No triamcinolo ne acetonide 0.025 % topical cream 07-03 00:00: 00 No 1% mupirocin 2 % topical ointment 0 07-03 00:00: 00 No 1% clobetasol 0.05 % shampoo 07-03 00:00: 00 No 1% ketoconazol e 2 % shampoo 07-03 00:00: 00 No 1% ketoconazol e 2 % shampoo 07-03 00:00: 00 No 1% clobetasol 0.05 % topical ointment 07-03 00:00: 00 No 1% mupirocin 2 % topical ointment 07-03 00:00: 00 No 1% clobetasol 0.05 % shampoo 07-03 00:00: 00 No 1% aspirin 81 mg tablet,katya yed release 07-03 00:00: 00 No 1mg loratadine 10 mg tablet 07-03 00:00: 00 No 1mg Dose Unknown 07-03 00:00: 00 No loratadine 10 mg tablet 07-03 00:00: 00 No 1mg aspirin 81 mg tablet,katya yed release 07-03 00:00: 00 No 1mg sertraline 50 mg tablet 07-03 00:00: 00 No 1mg atenolol 100 mg tablet 07-03 00:00: 00 No 1mg metformin 1,000 mg tablet 07-03 00:00: 00 No 1mg glimepiride 4 mg tablet 07-03 00:00: 00 No 1mg diclofenac sodium 75 mg tablet,katya yed release 0 07-03 00:00: 00 No 1mg glimepiride 4 mg tablet 07-03 00:00: 00 No 1mg atenolol 100 mg tablet 2021-0 4-19 00:00: 00 No 1mg sertraline 50 mg tablet 2021-0 4-19 00:00: 00 No 1mg Dose Unknown 2021-0 4 00:00: 00 No metformin ER 500 mg tablet,exte nded release 24 hr 0 4- 00:00: 00 No 2mg naproxen 500 mg tablet 0 4 00:00: 00 No 1mg trazodone 50 mg tablet 0 4 00:00: 00 No 1mg trazodone 50 mg tablet 0 4 00:00: 00 No 1mg naproxen 500 mg tablet 0 4 00:00: 00 No 1mg gabapentin 300 mg capsule 0 4 00:00: 00 No 1mg gabapentin 300 mg capsule 0 419 00:00: 00 No 1mg Dose Unknown 2021-0 4 00:00: 00 No omeprazole 40 mg capsule,del ayed release 0 07-03 00:00: 00 No 1mg sulconazole 1 % topical solution 2021-0 419 00:00: 00 No 1% Dose Unknown 2021-0 4-19 00:00: 00 No sulconazole 1 % topical solution 2021-0 419 00:00: 00 No 1% Dose Unknown 2021-0 419 00:00: 00 No Dose Unknown 2-0 4-19 00:00: 00 No Dose Unknown 2021-0 4-19 00:00: 00 No Dose Unknown 2-0 4-19 00:00: 00 No Dose Unknown 2-0 419 00:00: 00 No Dose Unknown 2-0 419 00:00: 00 No Dose Unknown 2-0 4-19 00:00: 00 No Dose Unknown 2-0 4-19 00:00: 00 No Dose Unknown 2-0 419 00:00: 00 No Dose Unknown 2-0 419 00:00: 00 No Dose Unknown 2-0 4-19 00:00: 00 No Dose Unknown 2021-0 4-19 00:00: 00 No Dose Unknown 2-0 4-19 00:00: 00 No Dose Unknown 2022-0 4-19 00:00: 00 No Dose Unknown 2022-0 4-19 00:00: 00 No Dose Unknown 2022-0 4-19 00:00: 00 No Dose Unknown 2022-0 4-19 00:00: 00 No Dose Unknown 2022-0 4-19 00:00: 00 No Dose Unknown 2022-0 4-19 00:00: 00 No Dose Unknown 2022-0 4-19 00:00: 00 No Dose Unknown 2022-0 4-19 00:00: 00 No Dose Unknown 2022-0 4-19 00:00: 00 No Dose Unknown 2022-0 4-19 00:00: 00 No Dose Unknown 2022-0 4-19 00:00: 00 No Dose Unknown 2022-0 4-19 00:00: 00 No Dose Unknown 2022-0 4-19 00:00: 00 No Dose Unknown 2022-0 4-19 00:00: 00 No Dose Unknown 2022-0 4-19 00:00: 00 No Dose Unknown 2022-0 4-19 00:00: 00 No Dose Unknown 2022-0 4-19 00:00: 00 No Dose Unknown 2022-0 4-19 00:00: 00 No Dose Unknown 2022-0 4-19 00:00: 00 No Dose Unknown 2022-0 4-19 00:00: 00 No Dose Unknown 2022-0 4-19 00:00: 00 No Dose Unknown 2022-0 4-19 00:00: 00 No Dose Unknown 2022-0 4-19 00:00: 00 No Dose Unknown 2022-0 4-19 00:00: 00 No Dose Unknown 2022-0 4-19 00:00: 00 No Dose Unknown 2022-0 4-19 00:00: 00 No Dose Unknown 2022-0 4-19 00:00: 00 No Dose Unknown 2022-0 4-19 00:00: 00 No Dose Unknown 2022-0 4-19 00:00: 00 No Dose Unknown 2022-0 4-19 00:00: 00 No Dose Unknown 2022-0 4-19 00:00: 00 No Dose Unknown 2022-0 4-19 00:00: 00 No Dose Unknown 2022-0 4-19 00:00: 00 No Dose Unknown 2022-0 4-19 00:00: 00 No Dose Unknown 2022-0 4-19 00:00: 00 No Dose Unknown 2022-0 4-19 00:00: 00 No Dose Unknown 2022-0 4-19 00:00: 00 No Dose Unknown 2022-0 4-19 00:00: 00 No Dose Unknown 2022-0 4-19 00:00: 00 No Dose Unknown 2022-0 4-19 00:00: 00 No Dose Unknown 2022-0 4-19 00:00: 00 No Dose Unknown 2022-0 4-19 00:00: 00 No Dose Unknown 2022-0 4-19 00:00: 00 No Dose Unknown 2022-0 4-19 00:00: 00 No Dose Unknown 2022-0 4-19 00:00: 00 No Dose Unknown 2022-0 4-19 00:00: 00 No Dose Unknown 2022-0 4-19 00:00: 00 No Dose Unknown 2022-0 4-19 00:00: 00 No Dose Unknown 2022-0 4-19 00:00: 00 No Dose Unknown 2022-0 4-19 00:00: 00 No Dose Unknown 2022-0 4-19 00:00: 00 No Dose Unknown 2022-0 4-19 00:00: 00 No Dose Unknown 2022-0 4-19 00:00: 00 No Dose Unknown 2022-0 4-19 00:00: 00 No Dose Unknown 2022-0 4-19 00:00: 00 No Dose Unknown 2022-0 4-19 00:00: 00 No Dose Unknown 2022-0 4-19 00:00: 00 No Dose Unknown 2022-0 4-19 00:00: 00 No Dose Unknown 2022-0 4-19 00:00: 00 No Dose Unknown 2022-0 4-19 00:00: 00 No Dose Unknown 2022-0 4-19 00:00: 00 No Dose Unknown 2022-0 4-19 00:00: 00 No Dose Unknown 2022-0 4-19 00:00: 00 No Dose Unknown 2022-0 4-19 00:00: 00 No Dose Unknown 2022-0 4-19 00:00: 00 No Dose Unknown 2022-0 4-19 00:00: 00 No Dose Unknown 0 07-03 00:00: 00 No Dose Unknown 0 07-03 00:00: 00 No Dose Unknown 0 07-03 00:00: 00 No Dose Unknown 0 07-03 00:00: 00 No Dose Unknown 0 07-03 00:00: 00 No triamcinolo ne acetonide 0.025 % topical cream 0 07-03 00:00: 00 No 1% Dose Unknown 0 07-03 00:00: 00 No Dose Unknown 0 07-03 00:00: 00 No Dose Unknown 0 07-03 00:00: 00 No Dose Unknown 0 07-03 00:00: 00 No Dose Unknown 0 07-03 00:00: 00 No Dose Unknown 0 07-03 00:00: 00 No Dose Unknown 0 07-03 00:00: 00 No Dose Unknown 0 07-03 00:00: 00 No Nystop 100,000 unit/gram topical powder 0 07-03 00:00: 00 No 1unit/g isabel Nystop 100,000 unit/gram topical powder 0 07-03 00:00: 00 No 1unit/g isabel cholestyram ine (with sugar) 4 gram powder for susp in a packet 07-03 00:00: 00 No 4gram Dose Unknown 07-03 00:00: 00 No triamcinolo ne acetonide 0.025 % topical cream 07-03 00:00: 00 No 1% Dose Unknown 07-03 00:00: 00 No triamcinolo ne acetonide 0.025 % topical cream 07-03 00:00: 00 No 1% mupirocin 2 % topical ointment 07-03 00:00: 00 No 1% clobetasol 0.05 % shampoo 07-03 00:00: 00 No 1% ketoconazol e 2 % shampoo 0 07-03 00:00: 00 No 1% ketoconazol e 2 % shampoo 0 07-03 00:00: 00 No 1% clobetasol 0.05 % topical ointment 07-03 00:00: 00 No 1% mupirocin 2 % topical ointment 07-03 00:00: 00 No 1% clobetasol 0.05 % shampoo 07-03 00:00: 00 No 1% aspirin 81 mg tablet,katya yed release 07-03 00:00: 00 No 1mg loratadine 10 mg tablet 07-03 00:00: 00 No 1mg Dose Unknown 07-03 00:00: 00 No loratadine 10 mg tablet 07-03 00:00: 00 No 1mg aspirin 81 mg tablet,katya yed release 07-03 00:00: 00 No 1mg sertraline 50 mg tablet 07-03 00:00: 00 No 1mg atenolol 100 mg tablet 07-03 00:00: 00 No 1mg metformin 1,000 mg tablet 07-03 00:00: 00 No 1mg glimepiride 4 mg tablet 07-03 00:00: 00 No 1mg diclofenac sodium 75 mg tablet,katya yed release 07-03 00:00: 00 No 1mg glimepiride 4 mg tablet 07-03 00:00: 00 No 1mg atenolol 100 mg tablet 07-03 00:00: 00 No 1mg sertraline 50 mg tablet 07-03 00:00: 00 No 1mg triamcinolo ne acetonide 0.025 % topical cream 07-03 00:00: 00 No 1% Dose Unknown 07-03 00:00: 00 No metformin ER 500 mg tablet,exte nded release 24 hr 07-03 00:00: 00 No 2mg naproxen 500 mg tablet 07-03 00:00: 00 No 1mg trazodone 50 mg tablet 07-03 00:00: 00 No 1mg trazodone 50 mg tablet 07-03 00:00: 00 No 1mg naproxen 500 mg tablet 2022-0 4-19 00:00: 00 No 1mg gabapentin 300 mg capsule 2022-0 4-19 00:00: 00 No 1mg gabapentin 300 mg capsule 2022-0 4-19 00:00: 00 No 1mg Dose Unknown 2022-0 4-19 00:00: 00 No omeprazole 40 mg capsule,del ayed release 2022-0 4-19 00:00: 00 No 1mg sulconazole 1 % topical solution 2022-0 4-19 00:00: 00 No 1% Dose Unknown 2022-0 4-19 00:00: 00 No sulconazole 1 % topical solution 2022-0 4-19 00:00: 00 No 1% Dose Unknown 2022-0 4-19 00:00: 00 No Dose Unknown 2022-0 4-19 00:00: 00 No Dose Unknown 2022-0 4-19 00:00: 00 No Dose Unknown 2022-0 4-19 00:00: 00 No Dose Unknown 2022-0 4-19 00:00: 00 No Dose Unknown 2022-0 4-19 00:00: 00 No Dose Unknown 2022-0 4-19 00:00: 00 No Dose Unknown 2022-0 4-19 00:00: 00 No Dose Unknown 2022-0 4-19 00:00: 00 No Dose Unknown 2022-0 4-19 00:00: 00 No Dose Unknown 2022-0 4-19 00:00: 00 No Dose Unknown 2022-0 4-19 00:00: 00 No Dose Unknown 2022-0 4-19 00:00: 00 No Dose Unknown 2022-0 4-19 00:00: 00 No Dose Unknown 2022-0 4-19 00:00: 00 No Dose Unknown 2022-0 4-19 00:00: 00 No Dose Unknown 2022-0 4-19 00:00: 00 No Dose Unknown 2022-0 4-19 00:00: 00 No Dose Unknown 2022-0 4-19 00:00: 00 No Dose Unknown 2022-0 4-19 00:00: 00 No Dose Unknown 2022-0 4-19 00:00: 00 No Dose Unknown 2022-0 4-19 00:00: 00 No Dose Unknown 2022-0 4-19 00:00: 00 No Dose Unknown 2022-0 4-19 00:00: 00 No Dose Unknown 2022-0 4-19 00:00: 00 No Dose Unknown 2022-0 4-19 00:00: 00 No Dose Unknown 2022-0 4-19 00:00: 00 No Dose Unknown 2022-0 4-19 00:00: 00 No Dose Unknown 2022-0 4-19 00:00: 00 No Dose Unknown 2022-0 4-19 00:00: 00 No Dose Unknown 2022-0 4-19 00:00: 00 No Dose Unknown 2022-0 4-19 00:00: 00 No Dose Unknown 2022-0 4-19 00:00: 00 No Dose Unknown 2022-0 4-19 00:00: 00 No Dose Unknown 2022-0 4-19 00:00: 00 No Dose Unknown 2022-0 4-19 00:00: 00 No Dose Unknown 2022-0 4-19 00:00: 00 No Dose Unknown 2022-0 4-19 00:00: 00 No Dose Unknown 2022-0 4-19 00:00: 00 No Dose Unknown 2022-0 4-19 00:00: 00 No Dose Unknown 2022-0 4-19 00:00: 00 No Dose Unknown 2022-0 4-19 00:00: 00 No Dose Unknown 2022-0 4-19 00:00: 00 No Dose Unknown 2022-0 4-19 00:00: 00 No Dose Unknown 2022-0 4-19 00:00: 00 No Dose Unknown 2022-0 4-19 00:00: 00 No Dose Unknown 2022-0 4-19 00:00: 00 No Dose Unknown 2022-0 4-19 00:00: 00 No Dose Unknown 2022-0 4-19 00:00: 00 No Dose Unknown 2022-0 4-19 00:00: 00 No Dose Unknown 2022-0 4-19 00:00: 00 No Dose Unknown 2022-0 4-19 00:00: 00 No Dose Unknown 2022-0 4-19 00:00: 00 No Dose Unknown 2022-0 4-19 00:00: 00 No Dose Unknown 2022-0 4-19 00:00: 00 No Dose Unknown 2022-0 4-19 00:00: 00 No Dose Unknown 2022-0 4-19 00:00: 00 No Dose Unknown 2022-0 4-19 00:00: 00 No Dose Unknown 2022-0 4-19 00:00: 00 No Dose Unknown 2022-0 4-19 00:00: 00 No Dose Unknown 2022-0 4-19 00:00: 00 No Dose Unknown 2022-0 4-19 00:00: 00 No Dose Unknown 2022-0 4-19 00:00: 00 No Dose Unknown 2022-0 4-19 00:00: 00 No Dose Unknown 2022-0 4-19 00:00: 00 No Dose Unknown 2022-0 4-19 00:00: 00 No Dose Unknown 2022-0 4-19 00:00: 00 No Dose Unknown 2022-0 4-19 00:00: 00 No Dose Unknown 2022-0 4-19 00:00: 00 No Dose Unknown 2022-0 4-19 00:00: 00 No Dose Unknown 2022-0 4-19 00:00: 00 No Dose Unknown 2022-0 4-19 00:00: 00 No Dose Unknown 2022-0 4-19 00:00: 00 No Dose Unknown 2022-0 4-19 00:00: 00 No Dose Unknown 2022-0 4-19 00:00: 00 No Dose Unknown 2022-0 4-19 00:00: 00 No Dose Unknown 2022-0 4-19 00:00: 00 No Dose Unknown 2022-0 4-19 00:00: 00 No Dose Unknown 2022-0 4-19 00:00: 00 No Dose Unknown 2022-0 4-19 00:00: 00 No Niacinamide 500 MG Niacinamide 500 MG No Niacinamid e 500 MG Clobetasol 17 Propionate 0.5 % Clobetasol 17 Propionate 0.5 % No Clobetasol 17 Propionate 0.5 % Nystop 708697 UNIT/GM Nystop 779864 UNIT/GM No 1{appli cation} BID Nystop 787857 UNIT/GM Clobetasol Propionate 0.05 % Clobetasol Propionate 0.05 % No 1{appli cation} BID Clobetasol Propionate 0.05 % Sulconazole Nitrate 1 % Sulconazole Nitrate 1 % No 1{appli cation} QD Sulconazol e Nitrate 1 % Vital Signs Vital Name Observation Time Observation Value Comments S ource height 2020-12-18 13:50:00 72 [in_i] Commo n [facility] weight 2020-12-18 13:50:00 222.2 [lb_av] Co mmon [facility] temperature 2020-12-18 13:50:00 97.4 [degF] Com mon [facility] bmi 2020-12-18 13:50:00 30.13 kg/m2 Comm on [facility] oximetry 2020-12-18 13:50:00 94 % Commo n [facility] respiratory rate 2020-12-18 13:50:00 17 /min Common [facility] blood pressure systolic 2020-12-18 13:50:00 134 mm[Hg] [facility] blood pressure diastolic 2020-12-18 13:50:00 74 mm[Hg] [facility] BP Systolic 2022-04-01 08:18:00 115 mm[Hg] BP Diastolic 2022-04-01 08:18:00 72 mm[Hg] Weight Measured 2022-04-01 08:18:00 228.00 pounds Height Measured 2022-04-01 08:18:00 70.00 inches Body Temperature 2022-04-01 08:18:00 97.40 degrees Heart Rate 2022-04-01 08:18:00 106.00 /min Respiratory Rate 2022-04-01 08:18:00 BP Systolic 2022-03-27 11:33:00 118 mm[Hg] BP Diastolic 2022-03-27 11:33:00 72 mm[Hg] Weight Measured 2022-03-27 11:33:00 228.00 pounds Height Measured 2022-03-27 11:33:00 70.00 inches Body Temperature 2022-03-27 11:33:00 97.40 degrees Heart Rate 2022-03-27 11:33:00 90.00 /min Respiratory Rate 2022-03-27 11:33:00 BP Systolic 2022-02-28 17:35:00 116 mm[Hg] BP Diastolic 2022-02-28 17:35:00 78 mm[Hg] Weight Measured 2022-02-28 17:35:00 228.00 pounds Height Measured 2022-02-28 17:35:00 70.00 inches Body Temperature 2022-02-28 17:35:00 98.60 degrees Heart Rate 2022-02-28 17:35:00 99.00 /min Respiratory Rate 2022-02-28 17:35:00 25.00 /min BP Systolic 2022-01-22 08:34:00 128 mm[Hg] BP Diastolic 2022-01-22 08:34:00 79 mm[Hg] Weight Measured 2022-01-22 08:34:00 228.00 pounds Height Measured 2022-01-22 08:34:00 70.00 inches Body Temperature 2022-01-22 08:34:00 97.00 degrees Heart Rate 2022-01-22 08:34:00 118.00 /min Respiratory Rate 2022-01-22 08:34:00 24.00 /min BP Systolic 2022-01-07 09:31:00 125 mm[Hg] BP Diastolic 2022-01-07 09:31:00 79 mm[Hg] Weight Measured 2022-01-07 09:31:00 230.80 pounds Height Measured 2022-01-07 09:31:00 70.00 inches Body Temperature 2022-01-07 09:31:00 97.60 degrees Heart Rate 2022-01-07 09:31:00 94.00 /min Respiratory Rate 2022-01-07 09:31:00 BP Systolic 2021-12-17 16:36:00 119 mm[Hg] BP [...] /min Respiratory Rate 2021-07-03 13:35:00 16.00 /min Plan of Care Planned Activity Planned Date Details Comments Source Goal Plan of Care Note [code = 90061-3] Goal Plan of Care Note [code = 47482-8] Goal Plan of Care Note [code = 77725-7] Goal Plan of Care Note [code = 58702-8] Goal Plan of Care Note [code = 83103-5] Goal Plan of Care Note [code = 14216-3] Goal Plan of Care Note [code = 74104-6] Goal Plan of Care Note [code = 12549-3] Goal Plan of Care Note [code = 26043-2] Goal Plan of Care Note [code = 77723-2] Goal Plan of Care Note [code = 52301-8] Goal Plan of Care Note [code = 98546-4] Goal Plan of Care Note [code = 02722-3] Goal Plan of Care Note [code = 52580-8] Goal Plan of Care Note [code = 18679-9] Goal Plan of Care Note [code = 76194-4] Goal Plan of Care Note [code = 81965-0] Goal Plan of Care Note [code = 45908-1] Goal Plan of Care Note [code = 56397-5] Goal Plan of Care Note [code = 17807-3] Goal Plan of Care Note [code = 26049-7] Goal Plan of Care Note [code = 71588-4] Goal Plan of Care Note [code = 54772-0] Goal Plan of Care Note [code = 71315-8] Goal Plan of Care Note [code = 70653-2] Goal Plan of Care Note [code = 17612-1] Goal Plan of Care Note [code = 77909-2] Goal Plan of Care Note [code = 71981-0] Goal Plan of Care Note [code = 25071-4] Goal Plan of Care Note [code = 00853-7] Goal Plan of Care Note [code = 52401-9] Goal Plan of Care Note [code = 92797-3] Goal Plan of Care Note [code = 24527-9] Goal Plan of Care Note [code = 73981-9] Goal Plan of Care Note [code = 81918-2] Goal Plan of Care Note [code = 39541-9] Goal Plan of Care Note [code = 73068-9] Goal Plan of Care Note [code = 29563-4] Goal Plan of Care Note [code = 70538-6] Goal Plan of Care Note [code = 36923-3] Goal Plan of Care Note [code = 62423-3] Goal Plan of Care Note [code = 22829-3] Goal Plan of Care Note [code = 22522-9] Goal Plan of Care Note [code = 65945-2] Goal Plan of Care Note [code = 84770-9] Goal Plan of Care Note [code = 01853-7] Goal Plan of Care Note [code = 49879-1] Goal Plan of Care Note [code = 53300-6] Goal Plan of Care Note [code = 18774-8] Goal Plan of Care Note [code = 85208-4] Goal Plan of Care Note [code = 71571-7] Goal Plan of Care Note [code = 37048-2] Goal Plan of Care Note [code = 85912-8] Goal Plan of Care Note [code = 94889-9] Goal Plan of Care Note [code = 02763-9] Goal Plan of Care Note [code = 95044-5] Goal Plan of Care Note [code = 01311-9] Goal Plan of Care Note [code = 10406-3] Goal Plan of Care Note [code = 28510-5] Goal Plan of Care Note [code = 91452-1] Goal Plan of Care Note [code = 02377-8] Goal Plan of Care Note [code = 60021-3] Goal Plan of Care Note [code = 42594-2] Goal Plan of Care Note [code = 63260-4] Goal Plan of Care Note [code = 64382-0] Goal Plan of Care Note [code = 42961-2] Goal Plan of Care Note [code = 24367-7] Goal Plan of Care Note [code = 04479-3] Goal Plan of Care Note [code = 64560-4] Goal Plan of Care Note [code = 27627-7] Goal Plan of Care Note [code = 18674-2] Goal Plan of Care Note [code = 33599-1] Goal Plan of Care Note [code = 14442-9] Goal Plan of Care Note [code = 99601-9] Goal Plan of Care Note [code = 19476-2] Goal Plan of Care Note [code = 16100-8] Goal Plan of Care Note [code = 56081-5] Goal Plan of Care Note [code = 85946-7] Goal Plan of Care Note [code = 34574-3] Goal Plan of Care Note [code = 38195-5] Goal Plan of Care Note [code = 95959-7] Goal Plan of Care Note [code = 19155-6] Goal Plan of Care Note [code = 74656-8] Goal Plan of Care Note [code = 16878-7] Goal Plan of Care Note [code = 28049-1] Goal Plan of Care Note [code = 01547-0] Goal Plan of Care Note [code = 90672-9] Goal Plan of Care Note [code = 38316-5] Goal Plan of Care Note [code = 87403-8] Goal Plan of Care Note [code = 77324-7] Goal Plan of Care Note [code = 16014-9] Goal Plan of Care Note [code = 79421-7] Goal Plan of Care Note [code = 02334-7] Goal Plan of Care Note [code = 96891-2] Goal Plan of Care Note [code = 67140-6] Goal Plan of Care Note [code = 47396-3] Goal Plan of Care Note [code = 58747-3] Goal Plan of Care Note [code = 64026-0] Goal Plan of Care Note [code = 93616-0] Goal Plan of Care Note [code = 25008-4] Goal Plan of Care Note [code = 63248-0] Goal Plan of Care Note [code = 21341-7] Goal Plan of Care Note [code = 83942-8] Goal Plan of Care Note [code = 60303-8] Goal Plan of Care Note [code = 31606-8] Goal Plan of Care Note [code = 37417-4] Goal Plan of Care Note [code = 11257-4] Goal Plan of Care Note [code = 68705-4] Goal Plan of Care Note [code = 36458-1] Goal Plan of Care Note [code = 24721-5] Goal Plan of Care Note [code = 29171-8] Goal Plan of Care Note [code = 52671-3] Goal Plan of Care Note [code = 52905-0] Goal Plan of Care Note [code = 73691-5] Goal Plan of Care Note [code = 17504-7] Goal Plan of Care Note [code = 35260-3] Goal Plan of Care Note [code = 40960-4] Goal Plan of Care Note [code = 05288-7] Goal Plan of Care Note [code = 36452-7] Goal Plan of Care Note [code = 16732-9] Goal Plan of Care Note [code = 87413-6] Goal Plan of Care Note [code = 42289-1] Goal Plan of Care Note [code = 43697-5] Goal Plan of Care Note [code = 29386-9] Goal Plan of Care Note [code = 04112-5] Goal Plan of Care Note [code = 86841-3] Goal Plan of Care Note [code = 71196-3] Goal Plan of Care Note [code = 25473-8] Goal Plan of Care Note [code = 38922-1] Goal Plan of Care Note [code = 93678-0] Goal Plan of Care Note [code = 01243-8] Goal Plan of Care Note [code = 39329-6] Goal Plan of Care Note [code = 97635-6] Goal Plan of Care Note [code = 03144-8] Goal Plan of Care Note [code = 09860-8] Goal Plan of Care Note [code = 26238-7] Goal Plan of Care Note [code = 29303-2] Goal Plan of Care Note [code = 90732-2] Goal Plan of Care Note [code = 01938-8] Goal Plan of Care Note [code = 93657-4] Goal Plan of Care Note [code = 24919-2] Goal Plan of Care Note [code = 47439-8] Goal Plan of Care Note [code = 89088-6] Goal Plan of Care Note [code = 53051-6] Goal Plan of Care Note [code = 17055-6] Goal Plan of Care Note [code = 51212-1] Goal Plan of Care Note [code = 36073-1] Goal Plan of Care Note [code = 54357-9] Goal Plan of Care Note [code = 62480-8] Goal Plan of Care Note [code = 45149-1] Goal Plan of Care Note [code = 23875-5] Goal Plan of Care Note [code = 78655-1] Goal Plan of Care Note [code = 83824-2] Goal Plan of Care Note [code = 20506-8] Goal Plan of Care Note [code = 47860-1] Goal Plan of Care Note [code = 18486-2] Goal Plan of Care Note [code = 79022-4] Goal Plan of Care Note [code = 84517-8] Goal Plan of Care Note [code = 84067-9] Goal Plan of Care Note [code = 79494-5] Goal Plan of Care Note [code = 88163-9] Goal Plan of Care Note [code = 85770-1] Goal Plan of Care Note [code = 41547-7] Goal Plan of Care Note [code = 23478-2] Goal Plan of Care Note [code = 99863-1] Goal Plan of Care Note [code = 74537-1] Goal Plan of Care Note [code = 39110-5] Goal Plan of Care Note [code = 35832-5] Goal Plan of Care Note [code = 45122-1] Goal Plan of Care Note [code = 25035-5] Goal Plan of Care Note [code = 16160-3] Goal Plan of Care Note [code = 77047-5] Goal Plan of Care Note [code = 64856-4] Goal Plan of Care Note [code = 25810-3] Goal Plan of Care Note [code = 42253-6] Goal Plan of Care Note [code = 37844-6] Goal Plan of Care Note [code = 51851-8] Goal Plan of Care Note [code = 55016-0] Goal Plan of Care Note [code = 23127-0] Goal Plan of Care Note [code = 89440-6] Goal Plan of Care Note [code = 13379-2] Goal Plan of Care Note [code = 95915-3] Goal Plan of Care Note [code = 72068-3] Goal Plan of Care Note [code = 09812-1] Goal Plan of Care Note [code = 61230-0] Goal Plan of Care Note [code = 14418-8] Goal Plan of Care Note [code = 08987-2] Goal Plan of Care Note [code = 97993-1] Goal Plan of Care Note [code = 30598-1] Goal Plan of Care Note [code = 66760-0] Goal Plan of Care Note [code = 48018-1] Goal Plan of Care Note [code = 33936-9] Goal Plan of Care Note [code = 91900-3] Goal Plan of Care Note [code = 11312-4] Goal Plan of Care Note [code = 73720-3] Goal Plan of Care Note [code = 51301-3] Goal Plan of Care Note [code = 50275-0] Goal Plan of Care Note [code = 56931-0] Goal Plan of Care Note [code = 09818-8] Goal Plan of Care Note [code = 78503-1] Goal Plan of Care Note [code = 54123-0] Goal Plan of Care Note [code = 85681-8] Goal Plan of Care Note [code = 63941-0] Goal Plan of Care Note [code = 58403-4] Goal Plan of Care Note [code = 95847-2] Goal Plan of Care Note [code = 34741-7] Goal Plan of Care Note [code = 43260-0] Goal Plan of Care Note [code = 35691-4] Goal Plan of Care Note [code = 93258-9] Goal Plan of Care Note [code = 31829-0] Goal Plan of Care Note [code = 11467-1] Goal Plan of Care Note [code = 22300-4] Goal Plan of Care Note [code = 86252-0] Goal Plan of Care Note [code = 38813-1] Goal Plan of Care Note [code = 08484-9] Goal Plan of Care Note [code = 65984-0] Goal Plan of Care Note [code = 52683-6] Goal Plan of Care Note [code = 44881-4] Goal Plan of Care Note [code = 54802-2] Goal Plan of Care Note [code = 89212-4] Goal Plan of Care Note [code = 79999-5] Goal Plan of Care Note [code = 26772-3] Goal Plan of Care Note [code = 98048-9] Goal Plan of Care Note [code = 63606-9] Goal Plan of Care Note [code = 71361-1] Goal Plan of Care Note [code = 78474-2] Goal Plan of Care Note [code = 16474-4] Goal Plan of Care Note [code = 33993-6] Goal Plan of Care Note [code = 35592-1] Goal Plan of Care Note [code = 22539-3] Goal Plan of Care Note [code = 23051-4] Goal Plan of Care Note [code = 37476-2] Goal Plan of Care Note [code = 47022-4] Goal Plan of Care Note [code = 56249-0] Goal Plan of Care Note [code = 68440-0] Goal Plan of Care Note [code = 05844-0] Goal Plan of Care Note [code = 61892-8] Goal Plan of Care Note [code = 45913-2] Goal Plan of Care Note [code = 80211-1] Goal Plan of Care Note [code = 31618-7] Goal Plan of Care Note [code = 03985-6] Goal Plan of Care Note [code = 95076-4] Goal Plan of Care Note [code = 34090-2] Goal Plan of Care Note [code = 49702-3] Goal Plan of Care Note [code = 41507-9] Goal Plan of Care Note [code = 87515-3] Goal Plan of Care Note [code = 10074-5] Goal Plan of Care Note [code = 97324-5] Goal Plan of Care Note [code = 73845-4] Goal Plan of Care Note [code = 50627-9] Goal Plan of Care Note [code = 03356-3] Goal Plan of Care Note [code = 84968-8] Goal Plan of Care Note [code = 54185-8] Goal Plan of Care Note [code = 87794-0] Goal Plan of Care Note [code = 00774-4] Goal Plan of Care Note [code = 90393-8] Goal Plan of Care Note [code = 50223-4] Goal Plan of Care Note [code = 96198-4] Goal Plan of Care Note [code = 32540-2] Goal Plan of Care Note [code = 74571-0] Goal Plan of Care Note [code = 71609-5] Goal Plan of Care Note [code = 31231-2] Goal Plan of Care Note [code = 51450-1] Goal Plan of Care Note [code = 97512-4] Goal Plan of Care Note [code = 27597-7] Goal Plan of Care Note [code = 90738-1] Goal Plan of Care Note [code = 99680-6] Goal Plan of Care Note [code = 88346-1] Goal Plan of Care Note [code = 69595-7] Goal Plan of Care Note [code = 65655-7] Goal Plan of Care Note [code = 67787-9] Goal Plan of Care Note [code = 78648-6] Goal Plan of Care Note [code = 30004-1] Goal Plan of Care Note [code = 74960-8] Goal Plan of Care Note [code = 50527-3] Goal Plan of Care Note [code = 54170-7] Goal Plan of Care Note [code = 28247-0] Goal Plan of Care Note [code = 14212-6] Goal Plan of Care Note [code = 52963-3] Goal Plan of Care Note [code = 42472-9] Goal Plan of Care Note [code = 68658-5] Goal Plan of Care Note [code = 48261-9] Goal Plan of Care Note [code = 25004-7] Goal Plan of Care Note [code = 47608-4] Goal Plan of Care Note [code = 93656-2] Goal Plan of Care Note [code = 26865-1] Goal Plan of Care Note [code = 75241-7] Goal Plan of Care Note [code = 87425-7] Goal Plan of Care Note [code = 50482-0] Goal Plan of Care Note [code = 74123-9] Goal Plan of Care Note [code = 08103-0] Goal Plan of Care Note [code = 91944-3] Goal Plan of Care Note [code = 47412-4] Goal Plan of Care Note [code = 43691-0] Goal Plan of Care Note [code = 70935-6] Goal Plan of Care Note [code = 86553-5] Goal Plan of Care Note [code = 88589-3] Goal Plan of Care Note [code = 51704-7] Goal Plan of Care Note [code = 18217-3] Goal Plan of Care Note [code = 67222-3] Goal Plan of Care Note [code = 63677-2] Goal Plan of Care Note [code = 42074-8] Goal Plan of Care Note [code = 02276-6] Goal Plan of Care Note [code = 57075-2] Goal Plan of Care Note [code = 75158-2] Goal Plan of Care Note [code = 44312-8] Encounters Start Date/Time End Date/Time Encounter Type Admission Type Attending [facility] Care Facility Care Department Encounter ID Source 2021-04-11 13:58:37 Outpatient Jose Guadalupe Kilgore [facility] [id number] [facility] 2023-05-05 09:43:28 2023-05-05 09:43:28 Outpatient SFA SFA [id number] Isaac Diehl 2023-04-23 08:23:21 2023-04-23 08:23:21 Outpatient SFA SFA [id number] Isaac Diehl 2023-04-09 09:10:58 2023-04-09 09:10:58 Outpatient SFA SFA [id number] Isaac Diehl 2023-03-18 10:20:43 2023-03-18 10:20:43 Outpatient SFA SFA [id number] Isaac Diehl 2023-02-27 10:40:50 2023-02-27 10:40:50 Outpatient SFA SFA [id number] Isaac Diehl 2023-02-24 08:57:16 2023-02-24 08:57:16 Outpatient SFA SFA [id number] Isaac Diehl 2023-02-17 08:14:59 2023-02-17 08:14:59 Outpatient SFA SFA [id number] Isaac Diehl 2023-02-03 09:27:27 2023-02-03 09:27:27 Outpatient SFA SFA [id number] Isaac Diehl 2023-01-21 11:09:14 2023-01-21 11:09:14 Outpatient SFA SFA 07 Isaac Diehl 2022-12-31 11:33:13 2022-12-31 11:33:13 Outpatient SFA SFA 17 Isaac Diehl 2022-12-26 11:00:28 2022-12-26 11:00:28 Outpatient SFA SFA 12 Isaac Diehl 2022-12-23 10:40:31 2022-12-23 10:40:31 Outpatient SFA SFA 09 Isaac Diehl 2022-12-18 08:23:31 2022-12-18 08:23:31 Outpatient SFA SFA 04 Isaac Diehl 2022-12-12 08:29:02 2022-12-12 08:29:02 Outpatient SFA SFA [id number] Isaac Diehl 2022-12-11 09:33:12 2022-12-11 09:33:12 Outpatient SFA SFA [id number] Isaac Diehl 2022-11-14 08:04:44 2022-11-14 08:04:44 Outpatient SFA SFA [id number] Isaac Diehl 2022-11-04 08:10:57 2022-11-04 08:10:57 Outpatient SFA SFA 21 Isaac Diehl 2022-10-31 11:28:30 2022-10-31 11:28:30 Outpatient SFA SFA 17 Isaac Diehl 2022-10-23 09:31:28 2022-10-23 09:31:28 Outpatient SFA SFA [id number] Isaac Diehl 2022-10-09 08:13:26 2022-10-09 08:13:26 Outpatient SFA SFA [id number] Isaac iDehl 2022-09-25 17:02:04 2022-09-25 17:02:04 Outpatient SFA SFA Isaac Diehl 2022-09-24 08:13:17 2022-09-24 08:13:17 Outpatient SFA SFA 11 Isaac Diehl 2022-09-12 11:13:03 2022-09-12 11:13:03 Outpatient SFA SFA [id number] Isaac Diehl 2022-07-18 08:20:21 2022-07-18 08:20:21 Outpatient SFA SFA [id number] Isaac Diehl 2022-06-10 08:23:04 2022-06-10 08:23:04 Outpatient SFA SFA [id number] Isaac Diehl 2022-05-20 10:14:08 2022-05-20 10:14:08 Outpatient SFA SFA 06 Isaac Diehl 2022-05-06 09:37:06 2022-05-06 09:37:06 Outpatient SFA SFA [id number] Isaac Diehl 2022-04-25 10:27:44 2022-04-25 10:27:44 Outpatient SFA SFA [id number] Isaac Diehl 2022-04-01 08:12:20 2022-04-01 08:12:20 Outpatient SFA SFA [id number] Isaac Diehl 2022-04-01 00:00:00 2022-04-01 00:00:00 Outpatient Visit [id number] 2022-03-28 08:38:14 2022-03-28 08:38:14 Outpatient SFA SFA [id number] Isaac Diehl 2022-03-27 11:32:02 2022-03-27 11:32:02 Outpatient SFA SFA [id number] Isaac Diehl 2022-03-27 00:00:00 2022-03-27 00:00:00 Outpatient Visit [id number] 2022-02-28 17:34:04 2022-02-28 17:34:04 Outpatient SFA SFA [id number] Isaac Diehl 2022-02-28 00:00:00 2022-02-28 00:00:00 Outpatient Visit [id number] 2022-01-22 09:02:45 2022-01-22 09:02:45 Outpatient SFA SFA Isaac Diehl 2022-01-22 00:00:00 2022-01-22 00:00:00 Outpatient Visit [id number]- 6p3s-5pq9 -9afb-bbb [id number] s8n-5qs8-6 afb-bbbce4 [id number] 2022-01-10 08:54:13 2022-01-10 08:54:13 Outpatient SFA SFA Isaac Diehl 2022-01-07 09:39:32 2022-01-07 09:39:32 Outpatient SFA SFA Isaac Diehl 2022-01-07 00:00:00 2022-01-07 00:00:00 Outpatient Visit [id number]- [id number] -e1ek-h5k [id number] [id number] 545-43d4-b 8ce-d8ba06 [id number] 2021-12-17 16:34:46 2021-12-17 16:34:46 Outpatient SFA SFA [id number] Isaac Diehl 2021-12-17 00:00:00 2021-12-17 00:00:00 Outpatient Visit [id number]- n07g-0y77 -n0uw-4p8 [id number] 97a-4f42-b 3ce-7o372r [id number] 9092-09-22 00:00:00 2021-12-06 00:00:00 Outpatient Visit [id number]- bdee-41ae -7k84-s18 [id number]-e andrea-41ae-8 [id number] aaa3b2 2021-12-05 00:00:00 2021-12-05 00:00:00 Outpatient Visit [id number]- el61-7k7t -8t45-z32 [id number] 0wjwc753-i z26-7u6m-6 u57-t973pf 6843af 2021-11-01 00:00:00 2021-11-01 00:00:00 Outpatient Visit [id number]- zk3l-41bb -u137-114 [id number] [id number]-[id number] x7e-65cl-q [id number] 0f1bf9 2021-10-15 00:00:00 2021-10-15 00:00:00 Outpatient Visit [id number]- 5aa6-2jr0 -0b41-bcj [id number] bb0-4dd5-9 r88-mxm387 [id number] 2021-10-03 00:00:00 2021-10-03 00:00:00 Outpatient Visit [id number]- o744-0o23 -881a-0d5 [id number]-[id number] 305-4a27-8 81a-0d5a19 [id number] 2021-09-19 00:00:00 2021-09-19 00:00:00 Outpatient Visit [id number] [id number] -k66l-g2t [id number] cf6-49e8-a [id number] 6881ef 2021-09-13 00:00:00 2021-09-13 00:00:00 Outpatient Visit [id number]- [id number] -[id number]-494 [id number] 920-4a4d-a [id number] [id number] 2020-12-18 00:00:00 2020-12-18 00:00:00 OFFICE VISIT NEW PT LEVEL 3 STLMLC STLMLC [id number] [facility] Results Test Description Test Time Test Comments Results Result Co mments Source COMPREHENSIVE METABOLIC [id number] 04:39:15* Test Item Value Reference Range Interpretation Comme nts GLUCOSE (test code = 2217) 168 MG/DL 70-99 H BUN (test code = 220) 9 MG/DL 8-23 CREATININE (test code = 2214) 0.72 MG/DL 0.80-1.40 L eGFR (2020 CKD-EPI) (test code = 95565) 104 ML/MIN/1.73 >60 CALC BUN/CREAT (test code = 2235) 13 RATIO 6-28 SODIUM (test code = 2231) 140 MEQ/L 133-146 POTASSIUM (test code = 2228) 3.7 MEQ/L 3.5-5.4 CHLORIDE (test code = 2215) 99 MEQ/L 95-107 CARBON DIOXIDE (test code = 2206) 27 MEQ/L 19-31 CALCIUM (test code = 2209) 9.3 MG/DL 8.5-10.5 PROTEIN, TOTAL (test code = 222) 6.9 G/DL 6.1-8.3 ALBUMIN (test code = 2201) 4.3 G/DL 3.5-5.2 CALC GLOBULIN (test code = 2240) 2.6 G/DL 1.9-3.7 CALC A/G RATIO (test code = 2234) 1.7 RATIO 1.0-2.6 BILIRUBIN, TOTAL (test code = 2207) 0.2 MG/DL <=1.2 ALKALINE PHOSPHATASE (test code = 2204) 66 U/L 40-123 AST (test code = 2218) 19 U/L 9-50 ALT (test code = 2219) 30 U/L 5-50 LIPID [id number] 04:39:15* Test Item Value Reference Range Interpretation Comme nts CHOLESTEROL (test code = 2210) 111 MG/DL <200 TRIGLYCERIDES (test code = 2232) 158 MG/DL <150 H HDL CHOLESTEROL (test code = 2220) 53 MG/DL >39 CALC LDL CHOL (test code = 2237) 34 MG/DL <100 NOTE: CALCULATED LDL IS BASED ON LEONOR-JAUREGUI METHOD WHICHINCLUDES ADJUSTABLE TRIGLYCERIDE:VLDL CHOLESTEROL RATIO.THIS FACTOR VARIES BY MEASURED TRIGLYCERIDE AND NON-HDLCHOLESTEROL CONCENTRATIONS WITH INCREASED CALCULATED LDL SEENIN HIGHER TRIGLYCERIDE OR LOWER NON-HDL SPECIMENS. FOR MOREINFORMATION, SEE CLIENT ANNOUNCEMENT AT [email or web address] RISK RATIO LDL/HDL (test code = 2238) 0.64 RATIO <3.55 HEMOGLOBIN [id number] 02:47:42* Test Item Value Reference Range Interpretation Comme nts HEMOGLOBIN A1c (test code = 38641) 9.1 % 4.2-5.6 H [employer] GUIDELINES FOR HGB A1C: PREDIABETES/INCREASED RISK . . . . . . . 5.7-6.4% DIAGNOSIS OF DIABETES . . . . . . . . . >=6.5% WITH CONFIRMATION OR APPROPRIATE SYMPTOMS NOTE: ASSAY MAY BE AFFECTED BY HEMOGLOBINOPATHIES (SICKLE CELL ANEMIA, S-C DISEASE, OTHERS) OR ARTIFICIALLY LOWERED BY DECREASED RED CELL SURVIVAL (HEMOLYTIC ANEMIAS, BLOOD LOSS, ETC.). CONSIDER ALTERNATE TESTING OR LABORATORY CONSULTATION. COMPREHENSIVE METABOLIC [id number] 04:54:31* Test Item Value Reference Range Interpretation Comme nts GLUCOSE (test code = 2217) 199 MG/DL 70-99 H BUN (test code = 2208) 16 MG/DL 8-23 CREATININE (test code = 2214) 0.71 MG/DL 0.80-1.40 L eGFR (2020 CKD-EPI) (test code = 87990) 104 ML/MIN/1.73 >60 CALC BUN/CREAT (test code = 2235) 23 RATIO 6-28 SODIUM (test code = 223) 135 MEQ/L 133-146 POTASSIUM (test code = 2228) 4.0 MEQ/L 3.5-5.4 CHLORIDE (test code = 2215) 98 MEQ/L 95-107 CARBON DIOXIDE (test code = 2205) 20 MEQ/L 19-31 CALCIUM (test code = 2208) 9.1 MG/DL 8.5-10.5 PROTEIN, TOTAL (test code = 2228) 6.9 G/DL 6.1-8.3 ALBUMIN (test code = 1) 4.3 G/DL 3.5-5.2 CALC GLOBULIN (test code = 0) 2.6 G/DL 1.9-3.7 CALC A/G RATIO (test code = 2233) 1.7 RATIO 1.0-2.6 BILIRUBIN, TOTAL (test code = 2206) 0.3 MG/DL <=1.2 ALKALINE PHOSPHATASE (test code = 2203) 57 U/L 40-123 AST (test code = 2217) 17 U/L 9-50 ALT (test code = 2218) 20 U/L 5-50 LIPID [id number] 04:54:31* Test Item Value Reference Range Interpretation Comme nts CHOLESTEROL (test code = 2209) 142 MG/DL <200 TRIGLYCERIDES (test code = 2) 310 MG/DL <150 H HDL CHOLESTEROL (test code = 0) 57 MG/DL >39 CALC LDL CHOL (test code = 2236) 52 MG/DL <100 NOTE: CALCULATED LDL IS BASED ON LEONOR-JAUREGUI METHOD WHICHINCLUDES ADJUSTABLE TRIGLYCERIDE:VLDL CHOLESTEROL RATIO.THIS FACTOR VARIES BY MEASURED TRIGLYCERIDE AND NON-HDLCHOLESTEROL CONCENTRATIONS WITH INCREASED CALCULATED LDL SEENIN HIGHER TRIGLYCERIDE OR LOWER NON-HDL SPECIMENS. FOR MOREINFORMATION, SEE CLIENT ANNOUNCEMENT AT [email or web address] /CalcLDL-C RISK RATIO LDL/HDL (test code = 223) 0.91 RATIO <3.55 HEMOGLOBIN [id number] 02:40:53* Test Item Value Reference Range Interpretation Comme nts HEMOGLOBIN A1c (test code = 51169) 9.0 % 4.2-5.6 H [employer] GUIDELINES FOR HGB A1C: PREDIABETES/INCREASED RISK . . . . . . . 5.7-6.4% DIAGNOSIS OF DIABETES . . . . . . . . . >=6.5% WITH CONFIRMATION OR APPROPRIATE SYMPTOMS NOTE: ASSAY MAY BE AFFECTED BY HEMOGLOBINOPATHIES (SICKLE CELL ANEMIA, S-C DISEASE, OTHERS) OR ARTIFICIALLY LOWERED BY DECREASED RED CELL SURVIVAL (HEMOLYTIC ANEMIAS, BLOOD LOSS, ETC.). CONSIDER ALTERNATE TESTING OR LABORATORY CONSULTATION. UNLESS OTHERWISE INDICATED, ALL TESTING PERFORMED AT [facility] [address] [place] [address] DRAFTER PLUMBING: MARQUEZ STUBBS M.D. CLIA NUMBER [id number] [place]. [id number] OCCULT BLD,FECAL,IMMUNOASSAY [id number] 11:27:58* Test Item Value Reference Range Interpretation Comme nts OCCULT BLD, FECAL (test code = 17848) NEGATIVE NEGATIVE UNLESS OTHER GREER INDICATED, ALL TESTING PERFORMED AT [facility] [address] [place], [place] [address] DRAFTER PLUMBING: MARQUEZ STUBBS M.D. CLIA NUMBER [id number] [place]. [id number] CBC W/AUTO DIFF WITH [id number] 04:23:22* Test Item Value Reference Range Interpretation Comme nts WBC (test code = 1001) 9.7 K/UL 3.5-11.0 RBC (test code = 1002) 4.99 M/UL 4.50-6.10 HEMOGLOBIN (test code = 1003) 16.6 G/DL 13.5-17.0 HEMATOCRIT (test code = 1004) 48.6 % 40.0-51.0 MCV (test code = 1005) 97.4 fL 80.0-99.0 MCH (test code = 1006) 33.3 PG 25.0-33.0 H MCHC (test code = 1007) 34.2 G/DL 31.0-36.0 RDW (test code = 1038) 13.0 % 11.5-15.0 NEUTROPHILS (test code = 1008) 61.8 % LYMPHOCYTES (test code = 1010) 25.0 % MONOCYTES (test code = 1011) 9.2 % EOSINOPHILS (test code = 1012) 2.3 % BASOPHILS (test code = 1013) 1.1 % IMMATURE GRANULOCYTES (test code = 1036) 0.6 % NUCLEATED RBCS (test code = 1065) 0.0 /100 WBC'S See_Comment [Automated message] The system which generated this result transmitted reference range: 0.0. The reference range was not used to interpret this result as normal/abnormal. PLATELET COUNT (test code = 1015) 108 K/UL 130-400 L ABSOLUTE NEUTROPHILS (test code = 1066) 6.01 K/UL 1.50-7.50 ABSOLUTE LYMPHOCYTES (test code = 1067) 2.43 K/UL 1.00-4.00 ABSOLUTE MONOCYTES (test code = 1068) 0.89 K/UL 0.20-1.00 ABSOLUTE EOSINOPHILS (test code = 1040) 0.22 K/UL 0.00-0.50 ABSOLUTE BASOPHILS (test code = 1069) 0.11 K/UL 0.00-0.20 ABS IMMATURE GRANULOCYTES (test code = 1020) 0.06 K/UL 0.00-0.10 ABS NUCLEATED RBCS (test code = 24925) 0.00 K/UL 0.00-0.11 UNLESS OTHER GREER INDICATED, ALL TESTING PERFORMED AT [facility] [address] [place] [address] DRAFTER PLUMBING: MARQUEZ STUBBS M.D. CLIA NUMBER [id number] [facility] [place]. [id number] COMPREHENSIVE METABOLIC [id number] 04:21:56* Test Item Value Reference Range Interpretation Comme nts GLUCOSE (test code = 2217) 188 MG/DL 70-99 H BUN (test code = 2207) 13 MG/DL 8-23 CREATININE (test code = 2214) 0.71 MG/DL 0.80-1.40 L eGFR (2020 CKD-EPI) (test code = 96705) 104 ML/MIN/1.73 >60 CALC BUN/CREAT (test code = 2235) 18 RATIO 6-28 SODIUM (test code = 223) 138 MEQ/L 133-146 POTASSIUM (test code = 2228) 3.8 MEQ/L 3.5-5.4 CHLORIDE (test code = 2215) 102 MEQ/L 95-107 CARBON DIOXIDE (test code = 2206) 20 MEQ/L 19-31 CALCIUM (test code = 2209) 9.7 MG/DL 8.5-10.5 PROTEIN, TOTAL (test code = 222) 7.4 G/DL 6.1-8.3 ALBUMIN (test code = 2201) 4.3 G/DL 3.5-5.2 CALC GLOBULIN (test code = 2240) 3.1 G/DL 1.9-3.7 CALC A/G RATIO (test code = 2234) 1.4 RATIO 1.0-2.6 BILIRUBIN, TOTAL (test code = 2207) 0.4 MG/DL See_Comment [Automated me ssage] The system which generated this result transmitted reference range: <=1.2. The reference range was not used to interpret this result as normal/abnormal. ALKALINE PHOSPHATASE (test code = 2204) 58 U/L 40-123 AST (test code = 2218) 17 U/L 9-50 ALT (test code = 2219) 19 U/L 5-50 LIPID [id number] 04:21:56* Test Item Value Reference Range Interpretation Comme nts CHOLESTEROL (test code = 2210) 140 MG/DL <200 TRIGLYCERIDES (test code = 2232) 278 MG/DL <150 H HDL CHOLESTEROL (test code = 0) 54 MG/DL >39 CALC LDL CHOL (test code = 7) 53 MG/DL <100 NOTE: CALCULATED LDL IS BASED ON LEONOR-JAUREGUI METHOD WHICHINCLUDES ADJUSTABLE TRIGLYCERIDE:VLDL CHOLESTEROL RATIO.THIS FACTOR VARIES BY MEASURED TRIGLYCERIDE AND NON-HDLCHOLESTEROL CONCENTRATIONS WITH INCREASED CALCULATED LDL SEENIN HIGHER TRIGLYCERIDE OR LOWER NON-HDL SPECIMENS. FOR MOREINFORMATION, SEE CLIENT ANNOUNCEMENT AT [email or web address] /CalcLDL-C RISK RATIO LDL/HDL (test code = 2238) 0.98 RATIO <3.55 HEMOGLOBIN [id number] 03:22:52* Test Item Value Reference Range Interpretation Comme nts HEMOGLOBIN A1c (test code = 33617) 8.7 % 4.2-5.6 H [employer] GUIDELINES FOR HGB A1C: PREDIABETES/INCREASED RISK . . . . . . . 5.7-6.4% DIAGNOSIS OF DIABETES . . . . . . . . . >=6.5% WITH CONFIRMATION OR APPROPRIATE SYMPTOMS NOTE: ASSAY MAY BE AFFECTED BY HEMOGLOBINOPATHIES (SICKLE CELL ANEMIA, S-C DISEASE, OTHERS) OR ARTIFICIALLY LOWERED BY DECREASED RED CELL SURVIVAL (HEMOLYTIC ANEMIAS, BLOOD LOSS, ETC.). CONSIDER ALTERNATE TESTING OR LABORATORY CONSULTATION. CBC W/AUTO DIFF WITH [id number] 03:02:12* Test Item Value Reference Range Interpretation Comme nts WBC (test code = 1001) 10.4 K/UL 3.5-11.0 RBC (test code = 1002) 5.23 M/UL 4.50-6.10 HEMOGLOBIN (test code = 1003) 17.0 G/DL 13.5-17.0 HEMATOCRIT (test code = 1004) 50.5 % 40.0-51.0 MCV (test code = 1005) 96.6 fL 80.0-99.0 MCH (test code = 1006) 32.5 PG 25.0-33.0 MCHC (test code = 1007) 33.7 G/DL 31.0-36.0 RDW (test code = 1038) 12.8 % 11.5-15.0 NEUTROPHILS (test code = 1008) 58.8 % LYMPHOCYTES (test code = 1010) 28.2 % MONOCYTES (test code = 1011) 9.3 % EOSINOPHILS (test code = 1012) 1.7 % BASOPHILS (test code = 1013) 1.1 % IMMATURE GRANULOCYTES (test code = 1036) 0.9 % NUCLEATED RBCS (test code = 1065) 0.0 /100 WBC'S See_Comment [Automated message] The system which generated this result transmitted reference range: 0.0. The reference range was not used to interpret this result as normal/abnormal. PLATELET COUNT (test code = 1015) 95 K/UL 130-400 L ABSOLUTE NEUTROPHILS (test code = 1066) 6.14 K/UL 1.50-7.50 ABSOLUTE LYMPHOCYTES (test code = 1067) 2.94 K/UL 1.00-4.00 ABSOLUTE MONOCYTES (test code = 1068) 0.97 K/UL 0.20-1.00 ABSOLUTE EOSINOPHILS (test code = 1040) 0.18 K/UL 0.00-0.50 ABSOLUTE BASOPHILS (test code = 1069) 0.11 K/UL 0.00-0.20 ABS IMMATURE GRANULOCYTES (test code = 1020) 0.09 K/UL 0.00-0.10 ABS NUCLEATED RBCS (test code = 36093) 0.00 K/UL 0.00-0.11 UNLESS OTHER GREER INDICATED, ALL TESTING PERFORMED AT [facility] [address] [place] [address] D[employer]TER PLUMBING: MARQUEZ STUBBS M.D. CLIA NUMBER [id number] [place]. [id number] CULTURE, [id number] 16:45:32SPECIMEN NUMBER: [id number] CULTURE, URINE SPECIMEN NUMBER: [id number] SPECIMEN COMMENT: URINE SOURCE: URINE REPORT STATUS: FINAL FINAL REPORT: 07/20/2022 10-50,000 CFU/ML UROGENITAL SEVERIANO PRESENT NO C OMMON PATHOGENS UNLESS OTHERWISE INDICATED, ALL TESTING PERFORMED AT [facility] [address] [place], [place] [address] DRAFTER PLUMBING: MARQUEZ STUBBS M.D. CLIA NUMBER [id number] [place]. [id number] HEMOGLOBIN [id number] 21:43:32* Test Item Value Reference Range Interpretation Comme nts HEMOGLOBIN A1c (test code = 62809) 10.0 % 4.2-5.6 H [employer] GUIDELINES FOR HGB A1C: PREDIABETES/INCREASED RISK . . . . . . . 5.7-6.4% DIAGNOSIS OF DIABETES . . . . . . . . . >=6.5% WITH CONFIRMATION OR APPROPRIATE SYMPTOMS NOTE: ASSAY MAY BE AFFECTED BY HEMOGLOBINOPATHIES (SICKLE CELL ANEMIA, S-C DISEASE, OTHERS) OR ARTIFICIALLY LOWERED BY DECREASED RED CELL SURVIVAL (HEMOLYTIC ANEMIAS, BLOOD LOSS, ETC.). CONSIDER ALTERNATE TESTING OR LABORATORY CONSULTATION. [facility] has important pathology staff changes effective 05/15/2022. New pathology staff will provide uninterrupted, excellent patient care and clinical consultation. See URL: [email or web address]. UNLESS OTHERWISE INDICATED, ALL TESTING PERFORMED AT [facility] [address] [place] [address] DRAFTER PLUMBING: MARQUEZ STUBBS M.D. CLIA NUMBER [id number] [place]. [id number] CBC W/AUTO DIFF WITH [id number] 13:14:36* Test Item Value Reference Range Interpretation Comme nts WBC (test code = 1001) 12.3 K/UL 3.5-11.0 H RBC (test code = 1002) 5.23 M/UL 4.50-6.10 HEMOGLOBIN (test code = 1003) 16.6 G/DL 13.5-17.0 HEMATOCRIT (test code = 1004) 49.8 % 40.0-51.0 MCV (test code = 1005) 95.2 fL 80.0-99.0 MCH (test code = 1006) 31.7 PG 25.0-33.0 MCHC (test code = 1007) 33.3 G/DL 31.0-36.0 RDW (test code = 1038) 13.6 % 11.5-15.0 NEUTROPHILS (test code = 1008) 69.4 % LYMPHOCYTES (test code = 1010) 19.8 % MONOCYTES (test code = 1011) 7.9 % EOSINOPHILS (test code = 1012) 1.5 % BASOPHILS (test code = 1013) 0.7 % IMMATURE GRANULOCYTES (test code = 1036) 0.7 % NUCLEATED RBCS (test code = 1065) 0.0 /100 WBC'S See_Comment [Automated messa ge] The system which generated this result transmitted reference range: 0.0. The reference range was not used to interpret this result as normal/abnormal. PLATELET COUNT (test code = 1015) 170 K/UL 130-400 ABSOLUTE NEUTROPHILS (test code = 1066) 8.51 K/UL 1.50-7.50 H ABSOLUTE LYMPHOCYTES (test code = 1067) 2.43 K/UL 1.00-4.00 ABSOLUTE MONOCYTES (test code = 1068) 0.97 K/UL 0.20-1.00 ABSOLUTE EOSINOPHILS (test code = 1040) 0.18 K/UL 0.00-0.50 ABSOLUTE BASOPHILS (test code = 1069) 0.09 K/UL 0.00-0.20 ABS IMMATURE GRANULOCYTES (test code = 1020) 0.09 K/UL 0.00-0.10 ABS NUCLEATED RBCS (test code = 10737) 0.00 K/UL 0.00-0.11 QUANTIFERON TB GOLD [id number] 13:29:10* Test Item Value Reference Range Interpretation Comme nts QUANTIFERON TB GOLD PLUS (test code = 87763) NEGATIVE NEGATIVE Interpretive guidelines: Positive: 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 May also be positive with M. kansasii, M. szulgai and M. marinum. Not positive with BCG therapy. To establish a diagnosis of active disease, correlate with clinical and radiographic data. Indeterminate: May occur from excessive levels of gamma interferon, heterophil antibodies, anergy or handling issues. Repeat analysis is recommended. Negative: Presumptive negative for active or latent MTB infection. False negatives may occasionally be seen with impaired immune function or testing too early after exposure. _ GAMMA INTERFERON RESULTS TB1-NIL (test code = 49221) 0.03 IU/ML <0.35 TB2-NIL (test code = 82959) 0.04 IU/ML <0.35 MITOGEN-NIL (test code = 23401) 2.44 IU/ML NIL (test code = 53794) 0.01 IU/ML CBC W/AUTO DIFF WITH [id number] 19:18:59* Test Item Value Reference Range Interpretation Comme nts WBC (test code = 1001) 10.0 K/UL 3.5-11.0 RBC (test code = 1002) 5.11 M/UL 4.50-6.10 HEMOGLOBIN (test code = 1003) 16.0 G/DL 13.5-17.0 HEMATOCRIT (test code = 1004) 47.4 % 40.0-51.0 MCV (test code = 1005) 92.8 fL 80.0-99.0 MCH (test code = 1006) 31.3 PG 25.0-33.0 MCHC (test code = 1007) 33.8 G/DL 31.0-36.0 RDW (test code = 1038) 12.3 % 11.5-15.0 NEUTROPHILS (test code = 1008) 87.3 % AUTOMATED DIFFERENTIAL CONFIRMED WITH MANUAL SLIDE REVIEW. LYMPHOCYTES (test code = 1010) 8.1 % MONOCYTES (test code = 1011) 2.6 % EOSINOPHILS (test code = 1012) 0.1 % BASOPHILS (test code = 1013) 0.6 % IMMATURE GRANULOCYTES (test code = 1036) 1.3 % NUCLEATED RBCS (test code = 1065) 0.0 /100 WBC'S See_Comment [Automated message] The system which generated this result transmitted reference range: 0.0. The reference range was not used to interpret this result as normal/abnormal. PLATELET COUNT (test code = 1015) 159 K/UL 130-400 ABSOLUTE NEUTROPHILS (test code = 1066) 8.73 K/UL 1.50-7.50 H ABSOLUTE LYMPHOCYTES (test code = 1067) 0.81 K/UL 1.00-4.00 L ABSOLUTE MONOCYTES (test code = 1068) 0.26 K/UL 0.20-1.00 ABSOLUTE EOSINOPHILS (test code = 1040) 0.01 K/UL 0.00-0.50 ABSOLUTE BASOPHILS (test code = 1069) 0.06 K/UL 0.00-0.20 ABS IMMATURE GRANULOCYTES (test code = 1020) 0.13 K/UL 0.00-0.10 H ABS NUCLEATED RBCS (test code = 25903) 0.00 K/UL 0.00-0.11 COMMENTS (test code = 1016) (NOTE) NO SPECIFIC RBC ABNORMALITIES IDENTIFIED SEE ADDITIONAL COMMENTS BELOW: PLATELET CLUMPING PRESENT; TRUE PLATELET COUNT MAY BE HIGHER. ANGIO CONVERTING [id number] 18:19:50* Test Item Value Reference Range Interpretation Comme nts ANGIO CONVERTING ENZYME (test code = 4966) <5 U/L 11-80 L TESTING PERFO RMED AT [facility] [address] [place] [address], [address], [place] [address] CLIA NO: [id number] CARYL (ANTI-NUCLEAR AB) WITH REFLEX [id number] 03:50:47* Test Item Value Reference Range Interpretation Comme nts ANTI-NUCLEAR ANTIBODIES (test code = 3506) POSITIVE NEGATIVE A CARYL PATTERN (REPORTED TITER) (test code = 72894) SEE BELOW HOMOGENEOUS (test code = 97246) 1:80 TITER NEGATIVE H SPECKLED (test code = 616364) NEGATIVE TITER NEGATIVE DENSE FINE SPECKLED (test code = 33963) NEGATIVE TITER NEGATIVE CENTROMERE (test code = 519158) NEGATIVE TITER NEGATIVE COARSE SPECKLED (test code = 827402) NEGATIVE TITER NEGATIVE DISCRETE NUCLEAR DOTS (test code = 055954) NEGATIVE TITER NEGATIVE NUCLEOLAR (test code = 110384) NEGATIVE TITER NEGATIVE NUCLEAR MEMBRANE (test code = 700924) NEGATIVE TITER NEGATIVE CYTO. RETICULAR (KAMARI) (test code = 191877) NEGATIVE NEGATIVE COMMENTS (test code = 253827) NONE METHOD (test code = 78780) (NOTE) NOTE: EFFECTIVE 10/22/2021, METHOD IS TRANSITIONED TO THE [employer] IFA PLATFORM. THE METHOD INCLUDES A SCREENTHRESHOLD OF 1:80, DIGITIZED AND COMPUTER ALGORITHM-ASSISTEDINTE RPRETATION OF TITERS AND DIGITAL PATTERNS, AND HEp-2 CELLLINE SUBSTRATE. ADDITIONAL UNUSUAL PATTERNS WILL BE GIVEN ASCOMMENTS. FOR MORE INFORMATION, SEE [email or web address] [id number] 09:41:05* Test Item Value Reference Range Interpretation Comme nts RPR RESULT (test code = 3501) NON-REACTIVE NON-REACTIVE RPR TITER (test code = 3500) NOT INDIC. TITER NOT INDIC. [facility] has important pathology staff changes effective 05/15/2022. New pathology staff will provide uninterrupted, excellent patient care and clinical consultation. See URL: [email or web address]. UNLESS OTHERWISE INDICATED, ALL TESTING PERFORMED AT [facility] [address] [place] [address] CLIA: [id number], CAP: [id number] COMPREHENSIVE METABOLIC [id number] 06:06:10* Test Item Value Reference Range Interpretation Comme nts GLUCOSE (test code = 2217) 387 MG/DL 70-99 H BUN (test code = 2208) 19 MG/DL 8-23 CREATININE (test code = 2214) 0.62 MG/DL 0.80-1.40 L eGFR (2020 CKD-EPI) (test code = 88878) 109 ML/MIN/1.73 >60 CALC BUN/CREAT (test code = 2235) 31 RATIO 6-28 H SODIUM (test code = 2231) 132 MEQ/L 133-146 L POTASSIUM (test code = 2228) 4.3 MEQ/L 3.5-5.4 CHLORIDE (test code = 2215) 94 MEQ/L 95-107 L CARBON DIOXIDE (test code = 2206) 19 MEQ/L 19-31 CALCIUM (test code = 2209) 9.6 MG/DL 8.5-10.5 PROTEIN, TOTAL (test code = 2229) 7.3 G/DL 6.1-8.3 ALBUMIN (test code = 2201) 4.3 G/DL 3.5-5.2 CALC GLOBULIN (test code = 2240) 3.0 G/DL 1.9-3.7 CALC A/G RATIO (test code = 2234) 1.4 RATIO 1.0-2.6 BILIRUBIN, TOTAL (test code = 2206) 0.3 MG/DL See_Comment [Automated me ssage] The system which generated this result transmitted reference range: <=1.2. The reference range was not used to interpret this result as normal/abnormal. ALKALINE PHOSPHATASE (test code = 2203) 77 U/L 40-123 AST (test code = 8) 15 U/L 9-50 ALT (test code = 2218) 22 U/L 5-50 HEMOGLOBIN [id number] 09:52:31* Test Item Value Reference Range Interpretation Comme nts HEMOGLOBIN A1c (test code = 67948) 10.5 % 4.2-5.6 H [employer] GUIDELINES FOR HGB A1C: PREDIABETES/INCREASED RISK . . . . . . . 5.7-6.4% DIAGNOSIS OF DIABETES . . . . . . . . . >=6.5% WITH CONFIRMATION OR APPROPRIATE SYMPTOMS NOTE: ASSAY MAY BE AFFECTED BY HEMOGLOBINOPATHIES (SICKLE CELL ANEMIA, S-C DISEASE, OTHERS) OR ARTIFICIALLY LOWERED BY DECREASED RED CELL SURVIVAL (HEMOLYTIC ANEMIAS, BLOOD LOSS, ETC.). CONSIDER ALTERNATE TESTING OR LABORATORY CONSULTATION. LIPID [id number] 06:38:53* Test Item Value Reference Range Interpretation Comme nts CHOLESTEROL (test code = 2209) 142 MG/DL <200 TRIGLYCERIDES (test code = 2232) 125 MG/DL <150 HDL CHOLESTEROL (test code = 2220) 47 MG/DL >39 CALC LDL CHOL (test code = 2236) 74 MG/DL <100 NOTE: CALCULATED LDL IS BASED ON LEONOR-JAUREGUI METHOD WHICHINCLUDES ADJUSTABLE TRIGLYCERIDE:VLDL CHOLESTEROL RATIO.THIS FACTOR VARIES BY MEASURED TRIGLYCERIDE AND NON-HDLCHOLESTEROL CONCENTRATIONS WITH INCREASED CALCULATED LDL SEENIN HIGHER TRIGLYCERIDE OR LOWER NON-HDL SPECIMENS. FOR MOREINFORMATION, SEE CLIENT ANNOUNCEMENT AT [email or web address] /CalcLDL-C RISK RATIO LDL/HDL (test code = 2238) 1.57 RATIO <3.55 COMPREHENSIVE METABOLIC [id number] 06:38:53* Test Item Value Reference Range Interpretation Comme nts GLUCOSE (test code = 2216) 239 MG/DL 70-99 H BUN (test code = 2207) 11 MG/DL 8-23 CREATININE (test code = 2214) 0.64 MG/DL 0.80-1.40 L eGFR (2020 CKD-EPI) (test code = ) 108 ML/MIN/1.73 >60 CALC BUN/CREAT (test code = 2234) 17 RATIO 6-28 SODIUM (test code = 2230) 135 MEQ/L 133-146 POTASSIUM (test code = 2227) 4.4 MEQ/L 3.5-5.4 CHLORIDE (test code = 2214) 100 MEQ/L 95-107 CARBON DIOXIDE (test code = 2205) 22 MEQ/L 19-31 CALCIUM (test code = 2208) 9.4 MG/DL 8.5-10.5 PROTEIN, TOTAL (test code = 2228) 7.4 G/DL 6.1-8.3 ALBUMIN (test code = 2200) 4.5 G/DL 3.5-5.2 CALC GLOBULIN (test code = 2239) 2.9 G/DL 1.9-3.7 CALC A/G RATIO (test code = 2233) 1.6 RATIO 1.0-2.6 BILIRUBIN, TOTAL (test code = 2206) 0.3 MG/DL See_Comment [Automated me ssage] The system which generated this result transmitted reference range: <=1.2. The reference range was not used to interpret this result as normal/abnormal. ALKALINE PHOSPHATASE (test code = 2203) 81 U/L 40-123 AST (test code = 2217) 21 U/L 9-50 ALT (test code = 2218) 23 U/L 5-50 UNLESS OTHERWISE INDICATED, ALL TESTING PERFORMED [facility] [address] [place] [address] [employer]UM[employer]: SHAMAR ENRIQUE M.D. CLIA NUMBER [id number] [facility] [place] [place]. [id number] HEMOGLOBIN [id number] 00:00:00* Test Item Value Reference Range Interpretation Comme [facility] HEMOGLOBIN A1c (test code = 58586) 10.5 % HEMOGLOBIN [id number] 00:00:00* Test Item Value Reference Range Interpretation Comme [facility] HEMOGLOBIN A1c (test code = 95079) 10.5 % HEMOGLOBIN [id number] 00:00:00* Test Item Value Reference Range Interpretation Comme [facility] HEMOGLOBIN A1c (test code = 86396) 10.5 % LIPID [id number] 00:00:00* Test Item Value Reference Range Interpretation Comme nts CHOLESTEROL (test code = 2210) 142 MG/DL TRIGLYCERIDES (test code = 2232) 125 MG/DL HDL CHOLESTEROL (test code = 2220) 47 MG/DL CALC LDL CHOL (test code = 2237) 74 MG/DL RISK RATIO LDL/HDL (test cod e = 2238) 1.57 RATIO LIPID [id number] 00:00:00* Test Item Value Reference Range Interpretation Comme nts CHOLESTEROL (test code = 2210) 142 MG/DL TRIGLYCERIDES (test code = 2232) 125 MG/DL HDL CHOLESTEROL (test code = 2220) 47 MG/DL CALC LDL CHOL (test code = 2237) 74 MG/DL RISK RATIO LDL/HDL (test cod e = 2238) 1.57 RATIO COMPREHENSIVE METABOLIC [id number] 00:00:00* Test Item Value Reference Range Interpretation Comme nts GLUCOSE (test code = 7) 239 MG/DL BUN (test code = 2208) 11 MG/DL CREATININE (test code = 2214) 0.64 MG/DL eGFR (2020 CKD-EPI) (test code = 39410) 108 ML/MIN/1.73 CALC BUN/CREAT (test code = 2235) 17 RATIO SODIUM (test code = 2231) 135 MEQ/L POTASSIUM (test code = 2228) 4.4 MEQ/L CHLORIDE (test code = 2215) 100 MEQ/L CARBON DIOXIDE (test code = 2206) 22 MEQ/L CALCIUM (test code = 2209) 9.4 MG/DL PROTEIN, TOTAL (test code = 2229) 7.4 G/DL ALBUMIN (test code = 2201) 4.5 G/DL CALC GLOBULIN (test code = 2240) 2.9 G/DL CALC A/G RATIO (test code = 2234) 1.6 RATIO BILIRUBIN, TOTAL (test code = 2207) 0.3 MG/DL ALKALINE PHOSPHATASE (test code = 2204) 81 U/L AST (test code = 2218) 21 U/L ALT (test code = 2219) 23 U/L COMPREHENSIVE METABOLIC [id number] 00:00:00* Test Item Value Reference Range Interpretation Comme nts GLUCOSE (test code = 2217) 239 MG/DL BUN (test code = 2208) 11 MG/DL CREATININE (test code = 2214) 0.64 MG/DL eGFR (2020 CKD-EPI) (test code = 61929) 108 ML/MIN/1.73 CALC BUN/CREAT (test code = 2235) 17 RATIO SODIUM (test code = 2231) 135 MEQ/L POTASSIUM (test code = 2228) 4.4 MEQ/L CHLORIDE (test code = 2215) 100 MEQ/L CARBON DIOXIDE (test code = 2206) 22 MEQ/L CALCIUM (test code = 2209) 9.4 MG/DL PROTEIN, TOTAL (test code = 2229) 7.4 G/DL ALBUMIN (test code = 2201) 4.5 G/DL CALC GLOBULIN (test code = 2240) 2.9 G/DL CALC A/G RATIO (test code = 2234) 1.6 RATIO BILIRUBIN, TOTAL (test code = 2207) 0.3 MG/DL ALKALINE PHOSPHATASE (test code = 2204) 81 U/L AST (test code = 2218) 21 U/L ALT (test code = 2219) 23 U/L COMPREHENSIVE METABOLIC [id number] 00:00:00* Test Item Value Reference Range Interpretation Comme nts GLUCOSE (test code = 2217) 286 MG/DL BUN (test code = 2208) 17 MG/DL CREATININE (test code = 2214) 0.65 MG/DL eGFR (2020 CKD-EPI) (test code = 00224) 108 ML/MIN/1.73 CALC BUN/CREAT (test code = 2235) 26 RATIO SODIUM (test code = 2231) 137 MEQ/L POTASSIUM (test code = 2228) 4.4 MEQ/L CHLORIDE (test code = 2215) 100 MEQ/L CARBON DIOXIDE (test code = 2206) 21 MEQ/L CALCIUM (test code = 2209) 9.5 MG/DL PROTEIN, TOTAL (test code = 2229) 7.1 G/DL ALBUMIN (test code = 2201) 4.3 G/DL CALC GLOBULIN (test code = 2240) 2.8 G/DL CALC A/G RATIO (test code = 2234) 1.5 RATIO BILIRUBIN, TOTAL (test code = 2207) 0.6 MG/DL ALKALINE PHOSPHATASE (test code = 2204) 68 U/L AST (test code = 2218) 13 U/L ALT (test code = 2219) 15 U/L COMPREHENSIVE METABOLIC [id number] 00:00:00* Test Item Value Reference Range Interpretation Comme nts GLUCOSE (test code = 2217) 286 MG/DL BUN (test code = 2208) 17 MG/DL CREATININE (test code = 2214) 0.65 MG/DL eGFR (2020 CKD-EPI) (test code = 61352) 108 ML/MIN/1.73 CALC BUN/CREAT (test code = 2235) 26 RATIO SODIUM (test code = 2231) 137 MEQ/L POTASSIUM (test code = 2228) 4.4 MEQ/L CHLORIDE (test code = 2215) 100 MEQ/L CARBON DIOXIDE (test code = 2206) 21 MEQ/L CALCIUM (test code = 2209) 9.5 MG/DL PROTEIN, TOTAL (test code = 2229) 7.1 G/DL ALBUMIN (test code = 2201) 4.3 G/DL CALC GLOBULIN (test code = 2240) 2.8 G/DL CALC A/G RATIO (test code = 2234) 1.5 RATIO BILIRUBIN, TOTAL (test code = 2207) 0.6 MG/DL ALKALINE PHOSPHATASE (test code = 2204) 68 U/L AST (test code = 2218) 13 U/L ALT (test code = 2219) 15 U/L LIPID [id number] 00:00:00* Test Item Value Reference Range Interpretation Comme nts CHOLESTEROL (test code = 2210) 137 MG/DL TRIGLYCERIDES (test code = 2232) 121 MG/DL HDL CHOLESTEROL (test code = 2220) 48 MG/DL CALC LDL CHOL (test code = 2237) 69 MG/DL RISK RATIO LDL/HDL (test cod e = 2238) 1.44 RATIO LIPID [id number] 00:00:00* Test Item Value Reference Range Interpretation Comme nts CHOLESTEROL (test code = 2210) 137 MG/DL TRIGLYCERIDES (test code = 2232) 121 MG/DL HDL CHOLESTEROL (test code = 2220) 48 MG/DL CALC LDL CHOL (test code = 2237) 69 MG/DL RISK RATIO LDL/HDL (test cod e = 2238) 1.44 RATIO HEMOGLOBIN [id number] 00:00:00* Test Item Value Reference Range Interpretation Comme nts HEMOGLOBIN A1c (test code = 78950) 9.8 % HEMOGLOBIN [id number] 00:00:00* Test Item Value Reference Range Interpretation Comme nts HEMOGLOBIN A1c (test code = 59868) 9.8 % HEMOGLOBIN [id number] 00:00:00* Test Item Value Reference Range Interpretation Comme nts HEMOGLOBIN A1c (test code = 62391) 9.8 % COMPREHENSIVE METABOLIC [id number] 00:00:00* Test Item Value Reference Range Interpretation Comme nts GLUCOSE (test code = 2217) 286 MG/DL BUN (test code = 2208) 17 MG/DL CREATININE (test code = 2214) 0.65 MG/DL eGFR (2020 CKD-EPI) (test code = 01830) 108 ML/MIN/1.73 CALC BUN/CREAT (test code = 2235) 26 RATIO SODIUM (test code = 2231) 137 MEQ/L POTASSIUM (test code = 2228) 4.4 MEQ/L CHLORIDE (test code = 2215) 100 MEQ/L CARBON DIOXIDE (test code = 2206) 21 MEQ/L CALCIUM (test code = 2209) 9.5 MG/DL PROTEIN, TOTAL (test code = 2229) 7.1 G/DL ALBUMIN (test code = 2201) 4.3 G/DL CALC GLOBULIN (test code = 2240) 2.8 G/DL CALC A/G RATIO (test code = 2234) 1.5 RATIO BILIRUBIN, TOTAL (test code = 2207) 0.6 MG/DL ALKALINE PHOSPHATASE (test code = 2204) 68 U/L AST (test code = 2218) 13 U/L ALT (test code = 2219) 15 U/L COMPREHENSIVE METABOLIC [id number] 00:00:00* Test Item Value Reference Range Interpretation Comme nts GLUCOSE (test code = 2217) 286 MG/DL BUN (test code = 2208) 17 MG/DL CREATININE (test code = 2214) 0.65 MG/DL eGFR (2020 CKD-EPI) (test code = 17426) 108 ML/MIN/1.73 CALC BUN/CREAT (test code = 2235) 26 RATIO SODIUM (test code = 2231) 137 MEQ/L POTASSIUM (test code = 2228) 4.4 MEQ/L CHLORIDE (test code = 2215) 100 MEQ/L CARBON DIOXIDE (test code = 2206) 21 MEQ/L CALCIUM (test code = 2209) 9.5 MG/DL PROTEIN, TOTAL (test code = 2229) 7.1 G/DL ALBUMIN (test code = 2201) 4.3 G/DL CALC GLOBULIN (test code = 2240) 2.8 G/DL CALC A/G RATIO (test code = 2234) 1.5 RATIO BILIRUBIN, TOTAL (test code = 2207) 0.6 MG/DL ALKALINE PHOSPHATASE (test code = 2204) 68 U/L AST (test code = 2218) 13 U/L ALT (test code = 2219) 15 U/L LIPID [id number] 00:00:00* Test Item Value Reference Range Interpretation Comme nts CHOLESTEROL (test code = 2210) 137 MG/DL TRIGLYCERIDES (test code = 2232) 121 MG/DL HDL CHOLESTEROL (test code = 2220) 48 MG/DL CALC LDL CHOL (test code = 2237) 69 MG/DL RISK RATIO LDL/HDL (test cod e = 2238) 1.44 RATIO LIPID [id number] 00:00:00* Test Item Value Reference Range Interpretation Comme nts CHOLESTEROL (test code = 2210) 137 MG/DL TRIGLYCERIDES (test code = 2232) 121 MG/DL HDL CHOLESTEROL (test code = 2220) 48 MG/DL CALC LDL CHOL (test code = 2237) 69 MG/DL RISK RATIO LDL/HDL (test cod e = 2238) 1.44 RATIO HEMOGLOBIN [id number] 00:00:00* Test Item Value Reference Range Interpretation Comme nts HEMOGLOBIN A1c (test code = 81161) 9.8 % HEMOGLOBIN [id number] 00:00:00* Test Item Value Reference Range Interpretation Comme nts HEMOGLOBIN A1c (test code = 83932) 9.8 % HEMOGLOBIN [id number] 00:00:00* Test Item Value Reference Range Interpretation Comme nts HEMOGLOBIN A1c (test code = 49203) 9.8 % COMPREHENSIVE METABOLIC [id number] 00:00:00* Test Item Value Reference Range Interpretation Comme nts GLUCOSE (test code = 7) 286 MG/DL BUN (test code = 8) 17 MG/DL CREATININE (test code = 2214) 0.65 MG/DL eGFR (2020 CKD-EPI) (test code = 11739) 108 ML/MIN/1.73 CALC BUN/CREAT (test code = 2235) 26 RATIO SODIUM (test code = 2231) 137 MEQ/L POTASSIUM (test code = 2228) 4.4 MEQ/L CHLORIDE (test code = 2215) 100 MEQ/L CARBON DIOXIDE (test code = 2206) 21 MEQ/L CALCIUM (test code = 2209) 9.5 MG/DL PROTEIN, TOTAL (test code = 2229) 7.1 G/DL ALBUMIN (test code = 2201) 4.3 G/DL CALC GLOBULIN (test code = 2240) 2.8 G/DL CALC A/G RATIO (test code = 2234) 1.5 RATIO BILIRUBIN, TOTAL (test code = 2207) 0.6 MG/DL ALKALINE PHOSPHATASE (test code = 2204) 68 U/L AST (test code = 2218) 13 U/L ALT (test code = 2219) 15 U/L COMPREHENSIVE METABOLIC [id number] 00:00:00* Test Item Value Reference Range Interpretation Comme nts GLUCOSE (test code = 2217) 286 MG/DL BUN (test code = 2208) 17 MG/DL CREATININE (test code = 2214) 0.65 MG/DL eGFR (2020 CKD-EPI) (test code = 72299) 108 ML/MIN/1.73 CALC BUN/CREAT (test code = 2235) 26 RATIO SODIUM (test code = 2231) 137 MEQ/L POTASSIUM (test code = 2228) 4.4 MEQ/L CHLORIDE (test code = 2215) 100 MEQ/L CARBON DIOXIDE (test code = 2206) 21 MEQ/L CALCIUM (test code = 2209) 9.5 MG/DL PROTEIN, TOTAL (test code = 2229) 7.1 G/DL ALBUMIN (test code = 2201) 4.3 G/DL CALC GLOBULIN (test code = 2240) 2.8 G/DL CALC A/G RATIO (test code = 2234) 1.5 RATIO BILIRUBIN, TOTAL (test code = 2207) 0.6 MG/DL ALKALINE PHOSPHATASE (test code = 2204) 68 U/L AST (test code = 2218) 13 U/L ALT (test code = 2219) 15 U/L LIPID [id number] 00:00:00* Test Item Value Reference Range Interpretation Comme nts CHOLESTEROL (test code = 2210) 137 MG/DL TRIGLYCERIDES (test code = 2232) 121 MG/DL HDL CHOLESTEROL (test code = 2220) 48 MG/DL CALC LDL CHOL (test code = 2237) 69 MG/DL RISK RATIO LDL/HDL (test cod e = 2238) 1.44 RATIO LIPID [id number] 00:00:00* Test Item Value Reference Range Interpretation Comme nts CHOLESTEROL (test code = 2210) 137 MG/DL TRIGLYCERIDES (test code = 2232) 121 MG/DL HDL CHOLESTEROL (test code = 2220) 48 MG/DL CALC LDL CHOL (test code = 2237) 69 MG/DL RISK RATIO LDL/HDL (test cod e = 2238) 1.44 RATIO HEMOGLOBIN [id number] 00:00:00* Test Item Value Reference Range Interpretation Comme nts HEMOGLOBIN A1c (test code = 99106) 9.8 % HEMOGLOBIN [id number] 00:00:00* Test Item Value Reference Range Interpretation Comme nts HEMOGLOBIN A1c (test code = 11756) 9.8 % HEMOGLOBIN [id number] 00:00:00* Test Item Value Reference Range Interpretation Comme nts HEMOGLOBIN A1c (test code = 40950) 9.8 % COMPREHENSIVE METABOLIC [id number] 00:00:00* Test Item Value Reference Range Interpretation Comme nts GLUCOSE (test code = 2217) 286 MG/DL BUN (test code = 2208) 17 MG/DL CREATININE (test code = 2214) 0.65 MG/DL eGFR (2020 CKD-EPI) (test code = 15614) 108 ML/MIN/1.73 CALC BUN/CREAT (test code = 2235) 26 RATIO SODIUM (test code = 2231) 137 MEQ/L POTASSIUM (test code = 2228) 4.4 MEQ/L CHLORIDE (test code = 2215) 100 MEQ/L CARBON DIOXIDE (test code = 2206) 21 MEQ/L CALCIUM (test code = 2209) 9.5 MG/DL PROTEIN, TOTAL (test code = 2229) 7.1 G/DL ALBUMIN (test code = 2201) 4.3 G/DL CALC GLOBULIN (test code = 2240) 2.8 G/DL CALC A/G RATIO (test code = 2234) 1.5 RATIO BILIRUBIN, TOTAL (test code = 2207) 0.6 MG/DL ALKALINE PHOSPHATASE (test code = 2204) 68 U/L AST (test code = 2218) 13 U/L ALT (test code = 2219) 15 U/L COMPREHENSIVE METABOLIC [id number] 00:00:00* Test Item Value Reference Range Interpretation Comme nts GLUCOSE (test code = 2217) 286 MG/DL BUN (test code = 2208) 17 MG/DL CREATININE (test code = 2214) 0.65 MG/DL eGFR (2020 CKD-EPI) (test code = 97611) 108 ML/MIN/1.73 CALC BUN/CREAT (test code = 2235) 26 RATIO SODIUM (test code = 2231) 137 MEQ/L POTASSIUM (test code = 2228) 4.4 MEQ/L CHLORIDE (test code = 2215) 100 MEQ/L CARBON DIOXIDE (test code = 2206) 21 MEQ/L CALCIUM (test code = 2209) 9.5 MG/DL PROTEIN, TOTAL (test code = 2229) 7.1 G/DL ALBUMIN (test code = 2201) 4.3 G/DL CALC GLOBULIN (test code = 2240) 2.8 G/DL CALC A/G RATIO (test code = 2234) 1.5 RATIO BILIRUBIN, TOTAL (test code = 2207) 0.6 MG/DL ALKALINE PHOSPHATASE (test code = 2204) 68 U/L AST (test code = 2218) 13 U/L ALT (test code = 2219) 15 U/L LIPID [id number] 00:00:00* Test Item Value Reference Range Interpretation Comme nts CHOLESTEROL (test code = 2210) 137 MG/DL TRIGLYCERIDES (test code = 2232) 121 MG/DL HDL CHOLESTEROL (test code = 2220) 48 MG/DL CALC LDL CHOL (test code = 2237) 69 MG/DL RISK RATIO LDL/HDL (test cod e = 2238) 1.44 RATIO LIPID [id number] 00:00:00* Test Item Value Reference Range Interpretation Comme nts CHOLESTEROL (test code = 2210) 137 MG/DL TRIGLYCERIDES (test code = 2232) 121 MG/DL HDL CHOLESTEROL (test code = 2220) 48 MG/DL CALC LDL CHOL (test code = 2237) 69 MG/DL RISK RATIO LDL/HDL (test cod e = 2238) 1.44 RATIO HEMOGLOBIN [id number] 00:00:00* Test Item Value Reference Range Interpretation Comme nts HEMOGLOBIN A1c (test code = 61999) 9.8 % HEMOGLOBIN [id number] 00:00:00* Test Item Value Reference Range Interpretation Comme nts HEMOGLOBIN A1c (test code = 09393) 9.8 % HEMOGLOBIN [id number] 00:00:00* Test Item Value Reference Range Interpretation Comme nts HEMOGLOBIN A1c (test code = 14567) 9.8 % CULTURE, [id number] 10:46:30SPECIMEN NUMBER: [id number] CULTURE, URINE SPECIMEN NUMBER: [id number] SPECIMEN COMMENT: URINE SOURCE: URINE REPORT STATUS: FINAL FINAL REPORT: 01/09/2022 NO GROWTH AFTER 36 HOURS INCUBATION UNLESS OTHE RWISE INDICATED, ALL TESTING PERFORMED ATCLINICAL PATHOLOGY [employer] [address] [place] [address] [employer]: SHAMAR ENRIQUE M.D. [place] NUMBER [id number] [facility] [place]EDIT[place] NO.[id number], [id number] 00:00:00 * Test Item Value Reference Range Interpretation Comme nts CULTURE, URINE (test code = 46638) SPECIMEN NUMBER: [id number] CULTURE, [id number] 00:00:00* Test Item Value Reference Range Interpretation Comme nts CULTURE, URINE (test code = 51194) SPECIMEN NUMBER: [id number] CULTURE, [id number] 00:00:00* Test Item Value Reference Range Interpretation Comme nts CULTURE, URINE (test code = 04799) SPECIMEN NUMBER: [id number] CULTURE, [id number] 00:00:00* Test Item Value Reference Range Interpretation Comme nts CULTURE, URINE (test code = 97607) SPECIMEN NUMBER: [id number] CULTURE, [id number] 00:00:00* Test Item Value Reference Range Interpretation Comme nts CULTURE, URINE (test code = 58815) SPECIMEN NUMBER: [id number] CULTURE, [id number] 00:00:00* Test Item Value Reference Range Interpretation Comme nts CULTURE, URINE (test code = 31076) SPECIMEN NUMBER: [id number] CULTURE, [id number] 00:00:00* Test Item Value Reference Range Interpretation Comme nts CULTURE, URINE (test code = 62962) SPECIMEN NUMBER: [id number] CULTURE, [id number] 00:00:00* Test Item Value Reference Range Interpretation Comme nts CULTURE, URINE (test code = 20855) SPECIMEN NUMBER: [id number] CBC W/AUTO DIFF WITH [id number] 15:05:17* Test Item Value Reference Range Interpretation Comme nts WBC (test code = 1001) 8.2 K/UL 3.5-11.0 RBC (test code = 1002) 4.96 M/UL 4.50-6.10 HEMOGLOBIN (test code = 1003) 15.6 G/DL 13.5-17.0 HEMATOCRIT (test code = 1004) 47.8 % 40.0-51.0 MCV (test code = 1005) 96.4 fL 80.0-99.0 MCH (test code = 1006) 31.5 PG 25.0-33.0 MCHC (test code = 1007) 32.6 G/DL 31.0-36.0 RDW (test code = 1038) 14.4 % 11.5-15.0 NEUTROPHILS (test code = 1008) 69.8 % AUTOMATED DIFFERENTIAL CONFIRMED WITH MANUAL SLIDE REVIEW. LYMPHOCYTES (test code = 1010) 18.6 % MONOCYTES (test code = 1011) 8.0 % EOSINOPHILS (test code = 1012) 1.1 % BASOPHILS (test code = 1013) 1.2 % IMMATURE GRANULOCYTES (test code = 1036) 1.3 % NUCLEATED RBCS (test code = 1065) 0.0 /100 WBC'S See_Comment [Automated message] The system which generated this result transmitted reference range: 0.0. The reference range was not used to interpret this result as normal/abnormal. PLATELET COUNT (test code = 1015) 108 K/UL 130-400 L ABSOLUTE NEUTROPHILS (test code = 1066) 5.70 K/UL 1.50-7.50 ABSOLUTE LYMPHOCYTES (test code = 1067) 1.52 K/UL 1.00-4.00 ABSOLUTE MONOCYTES (test code = 1068) 0.65 K/UL 0.20-1.00 ABSOLUTE EOSINOPHILS (test code = 1040) 0.09 K/UL 0.00-0.50 ABSOLUTE BASOPHILS (test code = 1069) 0.10 K/UL 0.00-0.20 ABS IMMATURE GRANULOCYTES (test code = 1020) 0.11 K/UL 0.00-0.10 H ABS NUCLEATED RBCS (test code = 42934) 0.00 K/UL 0.00-0.11 COMMENTS (test code = 1016) (NOTE) NO SPECIFIC RBC ABNORMALITIES IDENTIFIED PLATELETS APPEAR DECREASED SEE ADDITIONAL COMMENTS BELOW: MODERATE PLATELET CLUMPS UNLABELLED [id number] 06:01:23* Test Item Value Reference Range Interpretation Comme nts NOTE: (test code = 45141) SPECIMEN RECEIVE D WITHOUT PATIENT'S NAME. UNLESS OTHERWISE INDICATED, ALL TESTING PERFORMED [facility] [employer] [address] [place] [id number] [employer]: SHAMAR ENRIQUE M.D. CLIA NUMBER [id number] [facility] [place]. [id number] CBC W/AUTO [id number] 00:00:00* Test Item Value Reference Range Interpretation Comme [...] = 1013) 1.2 % IMMATURE GRANULOCYTES (test code = 1036) 1.3 % NUCLEATED RBCS (test code = 1065) 0.0 /100WBC'S PLATELET COUNT (test code = 1015) 108 K/UL ABSOLUTE NEUTROPHILS (test c ode = 1066) 5.70 K/UL ABSOLUTE LYMPHOCYTES (test c ode = 1067) 1.52 K/UL ABSOLUTE MONOCYTES (test cod e = 1068) 0.65 K/UL ABSOLUTE EOSINOPHILS (test c ode = 1040) 0.09 K/UL ABSOLUTE BASOPHILS (test cod e = 1069) 0.10 K/UL ABS IMMATURE GRANULOCYTES (t est code = 1020) 0.11 K/UL ABS NUCLEATED RBCS (test cod e = 51674) 0.00 K/UL COMMENTS (test code = 1016) (NOTE) CBC W/AUTO [id number] 00:00:00* Test Item Value Reference Range Interpretation Comme [...] = 1013) 1.2 % IMMATURE GRANULOCYTES (test code = 1036) 1.3 % NUCLEATED RBCS (test code = 1065) 0.0 /100WBC'S PLATELET COUNT (test code = 1015) 108 K/UL ABSOLUTE NEUTROPHILS (test c ode = 1066) 5.70 K/UL ABSOLUTE LYMPHOCYTES (test c ode = 1067) 1.52 K/UL ABSOLUTE MONOCYTES (test cod e = 1068) 0.65 K/UL ABSOLUTE EOSINOPHILS (test c ode = 1040) 0.09 K/UL ABSOLUTE BASOPHILS (test cod e = 1069) 0.10 K/UL ABS IMMATURE GRANULOCYTES (t est code = 1020) 0.11 K/UL ABS NUCLEATED RBCS (test cod e = 55788) 0.00 K/UL COMMENTS (test code = 1016) (NOTE) CBC W/AUTO [id number] 00:00:00* Test Item Value Reference Range Interpretation Comme [...] = 1013) 1.2 % IMMATURE GRANULOCYTES (test code = 1036) 1.3 % NUCLEATED RBCS (test code = 1065) 0.0 /100WBC'S PLATELET COUNT (test code = 1015) 108 K/UL ABSOLUTE NEUTROPHILS (test c ode = 1066) 5.70 K/UL ABSOLUTE LYMPHOCYTES (test c ode = 1067) 1.52 K/UL ABSOLUTE MONOCYTES (test cod e = 1068) 0.65 K/UL ABSOLUTE EOSINOPHILS (test c ode = 1040) 0.09 K/UL ABSOLUTE BASOPHILS (test cod e = 1069) 0.10 K/UL ABS IMMATURE GRANULOCYTES (t est code = 1020) 0.11 K/UL ABS NUCLEATED RBCS (test cod e = 53147) 0.00 K/UL COMMENTS (test code = 1016) (NOTE) UNLABELLED SPECIMEN [ADDED][id number] 00:00:00* Test Item Value Reference Range Interpretation Comme nts NOTE: (test code = 15821) CBC W/AUTO [id number] 00:00:00* Test Item Value Reference Range Interpretation Comme [...] = 1013) 1.2 % IMMATURE GRANULOCYTES (test code = 1036) 1.3 % NUCLEATED RBCS (test code = 1065) 0.0 /100WBC'S PLATELET COUNT (test code = 1015) 108 K/UL ABSOLUTE NEUTROPHILS (test c ode = 1066) 5.70 K/UL ABSOLUTE LYMPHOCYTES (test c ode = 1067) 1.52 K/UL ABSOLUTE MONOCYTES (test cod e = 1068) 0.65 K/UL ABSOLUTE EOSINOPHILS (test c ode = 1040) 0.09 K/UL ABSOLUTE BASOPHILS (test cod e = 1069) 0.10 K/UL ABS IMMATURE GRANULOCYTES (t est code = 1020) 0.11 K/UL ABS NUCLEATED RBCS (test cod e = 15665) 0.00 K/UL COMMENTS (test code = 1016) (NOTE) CBC W/AUTO [id number] 00:00:00* Test Item Value Reference Range Interpretation Comme [...] = 1013) 1.2 % IMMATURE GRANULOCYTES (test code = 1036) 1.3 % NUCLEATED RBCS (test code = 1065) 0.0 /100WBC'S PLATELET COUNT (test code = 1015) 108 K/UL ABSOLUTE NEUTROPHILS (test c ode = 1066) 5.70 K/UL ABSOLUTE LYMPHOCYTES (test c ode = 1067) 1.52 K/UL ABSOLUTE MONOCYTES (test cod e = 1068) 0.65 K/UL ABSOLUTE EOSINOPHILS (test c ode = 1040) 0.09 K/UL ABSOLUTE BASOPHILS (test cod e = 1069) 0.10 K/UL ABS IMMATURE GRANULOCYTES (t est code = 1020) 0.11 K/UL ABS NUCLEATED RBCS (test cod e = 18795) 0.00 K/UL COMMENTS (test code = 1016) (NOTE) CBC W/AUTO [id number] 00:00:00* Test Item Value Reference Range Interpretation Comme [...] = 1013) 1.2 % IMMATURE GRANULOCYTES (test code = 1036) 1.3 % NUCLEATED RBCS (test code = 1065) 0.0 /100WBC'S PLATELET COUNT (test code = 1015) 108 K/UL ABSOLUTE NEUTROPHILS (test c ode = 1066) 5.70 K/UL ABSOLUTE LYMPHOCYTES (test c ode = 1067) 1.52 K/UL ABSOLUTE MONOCYTES (test cod e = 1068) 0.65 K/UL ABSOLUTE EOSINOPHILS (test c ode = 1040) 0.09 K/UL ABSOLUTE BASOPHILS (test cod e = 1069) 0.10 K/UL ABS IMMATURE GRANULOCYTES (t est code = 1020) 0.11 K/UL ABS NUCLEATED RBCS (test cod e = 73331) 0.00 K/UL COMMENTS (test code = 1016) (NOTE) UNLABELLED SPECIMEN [ADDED]2021-12-06 00:00:00* Test Item Value Reference Range Interpretation Comme nts NOTE: (test code = 59183) CBC W/AUTO [id number] 00:00:00* Test Item Value Reference Range Interpretation Comme [...] = 1013) 1.2 % IMMATURE GRANULOCYTES (test code = 1036) 1.3 % NUCLEATED RBCS (test code = 1065) 0.0 /100WBC'S PLATELET COUNT (test code = 1015) 108 K/UL ABSOLUTE NEUTROPHILS (test c ode = 1066) 5.70 K/UL ABSOLUTE LYMPHOCYTES (test c ode = 1067) 1.52 K/UL ABSOLUTE MONOCYTES (test cod e = 1068) 0.65 K/UL ABSOLUTE EOSINOPHILS (test c ode = 1040) 0.09 K/UL ABSOLUTE BASOPHILS (test cod e = 1069) 0.10 K/UL ABS IMMATURE GRANULOCYTES (t est code = 1020) 0.11 K/UL ABS NUCLEATED RBCS (test cod e = 09096) 0.00 K/UL COMMENTS (test code = 1016) (NOTE) CBC W/AUTO [id number] 00:00:00* Test Item Value Reference Range Interpretation Comme [...] = 1013) 1.2 % IMMATURE GRANULOCYTES (test code = 1036) 1.3 % NUCLEATED RBCS (test code = 1065) 0.0 /100WBC'S PLATELET COUNT (test code = 1015) 108 K/UL ABSOLUTE NEUTROPHILS (test c ode = 1066) 5.70 K/UL ABSOLUTE LYMPHOCYTES (test c ode = 1067) 1.52 K/UL ABSOLUTE MONOCYTES (test cod e = 1068) 0.65 K/UL ABSOLUTE EOSINOPHILS (test c ode = 1040) 0.09 K/UL ABSOLUTE BASOPHILS (test cod e = 1069) 0.10 K/UL ABS IMMATURE GRANULOCYTES (t est code = 1020) 0.11 K/UL ABS NUCLEATED RBCS (test cod e = 14876) 0.00 K/UL COMMENTS (test code = 1016) (NOTE) CBC W/AUTO [id number] 00:00:00* Test Item Value Reference Range Interpretation Comme [...] = 1013) 1.2 % IMMATURE GRANULOCYTES (test code = 1036) 1.3 % NUCLEATED RBCS (test code = 1065) 0.0 /100WBC'S PLATELET COUNT (test code = 1015) 108 K/UL ABSOLUTE NEUTROPHILS (test c ode = 1066) 5.70 K/UL ABSOLUTE LYMPHOCYTES (test c ode = 1067) 1.52 K/UL ABSOLUTE MONOCYTES (test cod e = 1068) 0.65 K/UL ABSOLUTE EOSINOPHILS (test c ode = 1040) 0.09 K/UL ABSOLUTE BASOPHILS (test cod e = 1069) 0.10 K/UL ABS IMMATURE GRANULOCYTES (t est code = 1020) 0.11 K/UL ABS NUCLEATED RBCS (test cod e = 47940) 0.00 K/UL COMMENTS (test code = 1016) (NOTE) UNLABELLED SPECIMEN [ADDED]2021-12-06 00:00:00* Test Item Value Reference Range Interpretation Comme nts NOTE: (test code = 70124) CBC W/AUTO [id number] 00:00:00* Test Item Value Reference Range Interpretation Comme [...] = 1013) 1.2 % IMMATURE GRANULOCYTES (test code = 1036) 1.3 % NUCLEATED RBCS (test code = 1065) 0.0 /100WBC'S PLATELET COUNT (test code = 1015) 108 K/UL ABSOLUTE NEUTROPHILS (test c ode = 1066) 5.70 K/UL ABSOLUTE LYMPHOCYTES (test c ode = 1067) 1.52 K/UL ABSOLUTE MONOCYTES (test cod e = 1068) 0.65 K/UL ABSOLUTE EOSINOPHILS (test c ode = 1040) 0.09 K/UL ABSOLUTE BASOPHILS (test cod e = 1069) 0.10 K/UL ABS IMMATURE GRANULOCYTES (t est code = 1020) 0.11 K/UL ABS NUCLEATED RBCS (test cod e = 33889) 0.00 K/UL COMMENTS (test code = 1016) (NOTE) CBC W/AUTO [id number] 00:00:00* Test Item Value Reference Range Interpretation Comme [...] = 1013) 1.2 % IMMATURE GRANULOCYTES (test code = 1036) 1.3 % NUCLEATED RBCS (test code = 1065) 0.0 /100WBC'S PLATELET COUNT (test code = 1015) 108 K/UL ABSOLUTE NEUTROPHILS (test c ode = 1066) 5.70 K/UL ABSOLUTE LYMPHOCYTES (test c ode = 1067) 1.52 K/UL ABSOLUTE MONOCYTES (test cod e = 1068) 0.65 K/UL ABSOLUTE EOSINOPHILS (test c ode = 1040) 0.09 K/UL ABSOLUTE BASOPHILS (test cod e = 1069) 0.10 K/UL ABS IMMATURE GRANULOCYTES (t est code = 1020) 0.11 K/UL ABS NUCLEATED RBCS (test cod e = 42423) 0.00 K/UL COMMENTS (test code = 1016) (NOTE) CBC W/AUTO [id number] 00:00:00* Test Item Value Reference Range Interpretation Comme [...] = 1013) 1.2 % IMMATURE GRANULOCYTES (test code = 1036) 1.3 % NUCLEATED RBCS (test code = 1065) 0.0 /100WBC'S PLATELET COUNT (test code = 1015) 108 K/UL ABSOLUTE NEUTROPHILS (test c ode = 1066) 5.70 K/UL ABSOLUTE LYMPHOCYTES (test c ode = 1067) 1.52 K/UL ABSOLUTE MONOCYTES (test cod e = 1068) 0.65 K/UL ABSOLUTE EOSINOPHILS (test c ode = 1040) 0.09 K/UL ABSOLUTE BASOPHILS (test cod e = 1069) 0.10 K/UL ABS IMMATURE GRANULOCYTES (t est code = 1020) 0.11 K/UL ABS NUCLEATED RBCS (test cod e = 22842) 0.00 K/UL COMMENTS (test code = 1016) (NOTE) UNLABELLED SPECIMEN [ADDED]2021-12-06 00:00:00* Test Item Value Reference Range Interpretation Comme nts NOTE: (test code = 55800) CBC W/AUTO [id number] 00:00:00* Test Item Value Reference Range Interpretation Comme [...] = 1013) 1.2 % IMMATURE GRANULOCYTES (test code = 1036) 1.3 % NUCLEATED RBCS (test code = 1065) 0.0 /100WBC'S PLATELET COUNT (test code = 1015) 108 K/UL ABSOLUTE NEUTROPHILS (test c ode = 1066) 5.70 K/UL ABSOLUTE LYMPHOCYTES (test c ode = 1067) 1.52 K/UL ABSOLUTE MONOCYTES (test cod e = 1068) 0.65 K/UL ABSOLUTE EOSINOPHILS (test c ode = 1040) 0.09 K/UL ABSOLUTE BASOPHILS (test cod e = 1069) 0.10 K/UL ABS IMMATURE GRANULOCYTES (t est code = 1020) 0.11 K/UL ABS NUCLEATED RBCS (test cod e = 42261) 0.00 K/UL COMMENTS (test code = 1016) (NOTE) CBC W/AUTO [id number] 00:00:00* Test Item Value Reference Range Interpretation Comme [...] = 1013) 1.2 % IMMATURE GRANULOCYTES (test code = 1036) 1.3 % NUCLEATED RBCS (test code = 1065) 0.0 /100WBC'S PLATELET COUNT (test code = 1015) 108 K/UL ABSOLUTE NEUTROPHILS (test c ode = 1066) 5.70 K/UL ABSOLUTE LYMPHOCYTES (test c ode = 1067) 1.52 K/UL ABSOLUTE MONOCYTES (test cod e = 1068) 0.65 K/UL ABSOLUTE EOSINOPHILS (test c ode = 1040) 0.09 K/UL ABSOLUTE BASOPHILS (test cod e = 1069) 0.10 K/UL ABS IMMATURE GRANULOCYTES (t est code = 1020) 0.11 K/UL ABS NUCLEATED RBCS (test cod e = 55560) 0.00 K/UL COMMENTS (test code = 1016) (NOTE) CBC W/AUTO [id number] 00:00:00* Test Item Value Reference Range Interpretation Comme [...] = 1013) 1.2 % IMMATURE GRANULOCYTES (test code = 1036) 1.3 % NUCLEATED RBCS (test code = 1065) 0.0 /100WBC'S PLATELET COUNT (test code = 1015) 108 K/UL ABSOLUTE NEUTROPHILS (test c ode = 1066) 5.70 K/UL ABSOLUTE LYMPHOCYTES (test c ode = 1067) 1.52 K/UL ABSOLUTE MONOCYTES (test cod e = 1068) 0.65 K/UL ABSOLUTE EOSINOPHILS (test c ode = 1040) 0.09 K/UL ABSOLUTE BASOPHILS (test cod e = 1069) 0.10 K/UL ABS IMMATURE GRANULOCYTES (t est code = 1020) 0.11 K/UL ABS NUCLEATED RBCS (test cod e = 57296) 0.00 K/UL COMMENTS (test code = 1016) (NOTE) UNLABELLED SPECIMEN [ADDED]2021-12-06 00:00:00* Test Item Value Reference Range Interpretation Comme nts NOTE: (test code = 49185) CBC W/AUTO [id number] 00:00:00* Test Item Value Reference Range Interpretation Comme [...] = 1013) 1.2 % IMMATURE GRANULOCYTES (test code = 1036) 1.3 % NUCLEATED RBCS (test code = 1065) 0.0 /100WBC'S PLATELET COUNT (test code = 1015) 108 K/UL ABSOLUTE NEUTROPHILS (test c ode = 1066) 5.70 K/UL ABSOLUTE LYMPHOCYTES (test c ode = 1067) 1.52 K/UL ABSOLUTE MONOCYTES (test cod e = 1068) 0.65 K/UL ABSOLUTE EOSINOPHILS (test c ode = 1040) 0.09 K/UL ABSOLUTE BASOPHILS (test cod e = 1069) 0.10 K/UL ABS IMMATURE GRANULOCYTES (t est code = 1020) 0.11 K/UL ABS NUCLEATED RBCS (test cod e = 05075) 0.00 K/UL COMMENTS (test code = 1016) (NOTE) CBC W/AUTO [id number] 00:00:00* Test Item Value Reference Range Interpretation Comme [...] = 1013) 1.2 % IMMATURE GRANULOCYTES (test code = 1036) 1.3 % NUCLEATED RBCS (test code = 1065) 0.0 /100WBC'S PLATELET COUNT (test code = 1015) 108 K/UL ABSOLUTE NEUTROPHILS (test c ode = 1066) 5.70 K/UL ABSOLUTE LYMPHOCYTES (test c ode = 1067) 1.52 K/UL ABSOLUTE MONOCYTES (test cod e = 1068) 0.65 K/UL ABSOLUTE EOSINOPHILS (test c ode = 1040) 0.09 K/UL ABSOLUTE BASOPHILS (test cod e = 1069) 0.10 K/UL ABS IMMATURE GRANULOCYTES (t est code = 1020) 0.11 K/UL ABS NUCLEATED RBCS (test cod e = 82596) 0.00 K/UL COMMENTS (test code = 1016) (NOTE) CBC W/AUTO [id number] 00:00:00* Test Item Value Reference Range Interpretation Comme [...] = 1013) 1.2 % IMMATURE GRANULOCYTES (test code = 1036) 1.3 % NUCLEATED RBCS (test code = 1065) 0.0 /100WBC'S PLATELET COUNT (test code = 1015) 108 K/UL ABSOLUTE NEUTROPHILS (test c ode = 1066) 5.70 K/UL ABSOLUTE LYMPHOCYTES (test c ode = 1067) 1.52 K/UL ABSOLUTE MONOCYTES (test cod e = 1068) 0.65 K/UL ABSOLUTE EOSINOPHILS (test c ode = 1040) 0.09 K/UL ABSOLUTE BASOPHILS (test cod e = 1069) 0.10 K/UL ABS IMMATURE GRANULOCYTES (t est code = 1020) 0.11 K/UL ABS NUCLEATED RBCS (test cod e = 54263) 0.00 K/UL COMMENTS (test code = 1016) (NOTE) UNLABELLED SPECIMEN [ADDED]2021-12-06 00:00:00* Test Item Value Reference Range Interpretation Comme nts NOTE: (test code = 69314) CBC W/AUTO [id number] 00:00:00* Test Item Value Reference Range Interpretation Comme [...] = 1013) 1.2 % IMMATURE GRANULOCYTES (test code = 1036) 1.3 % NUCLEATED RBCS (test code = 1065) 0.0 /100WBC'S PLATELET COUNT (test code = 1015) 108 K/UL ABSOLUTE NEUTROPHILS (test c ode = 1066) 5.70 K/UL ABSOLUTE LYMPHOCYTES (test c ode = 1067) 1.52 K/UL ABSOLUTE MONOCYTES (test cod e = 1068) 0.65 K/UL ABSOLUTE EOSINOPHILS (test c ode = 1040) 0.09 K/UL ABSOLUTE BASOPHILS (test cod e = 1069) 0.10 K/UL ABS IMMATURE GRANULOCYTES (t est code = 1020) 0.11 K/UL ABS NUCLEATED RBCS (test cod e = 76153) 0.00 K/UL COMMENTS (test code = 1016) (NOTE) CBC W/AUTO [id number] 00:00:00* Test Item Value Reference Range Interpretation Comme [...] = 1013) 1.2 % IMMATURE GRANULOCYTES (test code = 1036) 1.3 % NUCLEATED RBCS (test code = 1065) 0.0 /100WBC'S PLATELET COUNT (test code = 1015) 108 K/UL ABSOLUTE NEUTROPHILS (test c ode = 1066) 5.70 K/UL ABSOLUTE LYMPHOCYTES (test c ode = 1067) 1.52 K/UL ABSOLUTE MONOCYTES (test cod e = 1068) 0.65 K/UL ABSOLUTE EOSINOPHILS (test c ode = 1040) 0.09 K/UL ABSOLUTE BASOPHILS (test cod e = 1069) 0.10 K/UL ABS IMMATURE GRANULOCYTES (t est code = 1020) 0.11 K/UL ABS NUCLEATED RBCS (test cod e = 44040) 0.00 K/UL COMMENTS (test code = 1016) (NOTE) CBC W/AUTO [id number] 00:00:00* Test Item Value Reference Range Interpretation Comme [...] = 1013) 1.2 % IMMATURE GRANULOCYTES (test code = 1036) 1.3 % NUCLEATED RBCS (test code = 1065) 0.0 /100WBC'S PLATELET COUNT (test code = 1015) 108 K/UL ABSOLUTE NEUTROPHILS (test c ode = 1066) 5.70 K/UL ABSOLUTE LYMPHOCYTES (test c ode = 1067) 1.52 K/UL ABSOLUTE MONOCYTES (test cod e = 1068) 0.65 K/UL ABSOLUTE EOSINOPHILS (test c ode = 1040) 0.09 K/UL ABSOLUTE BASOPHILS (test cod e = 1069) 0.10 K/UL ABS IMMATURE GRANULOCYTES (t est code = 1020) 0.11 K/UL ABS NUCLEATED RBCS (test cod e = 38263) 0.00 K/UL COMMENTS (test code = 1016) (NOTE) UNLABELLED SPECIMEN [ADDED]2021-12-06 00:00:00* Test Item Value Reference Range Interpretation Comme nts NOTE: (test code = 83236) CBC W/AUTO [id number] 00:00:00* Test Item Value Reference Range Interpretation Comme [...] = 1013) 1.2 % IMMATURE GRANULOCYTES (test code = 1036) 1.3 % NUCLEATED RBCS (test code = 1065) 0.0 /100WBC'S PLATELET COUNT (test code = 1015) 108 K/UL ABSOLUTE NEUTROPHILS (test c ode = 1066) 5.70 K/UL ABSOLUTE LYMPHOCYTES (test c ode = 1067) 1.52 K/UL ABSOLUTE MONOCYTES (test cod e = 1068) 0.65 K/UL ABSOLUTE EOSINOPHILS (test c ode = 1040) 0.09 K/UL ABSOLUTE BASOPHILS (test cod e = 1069) 0.10 K/UL ABS IMMATURE GRANULOCYTES (t est code = 1020) 0.11 K/UL ABS NUCLEATED RBCS (test cod e = 71938) 0.00 K/UL COMMENTS (test code = 1016) (NOTE) CBC W/AUTO [id number] 00:00:00* Test Item Value Reference Range Interpretation Comme [...] = 1013) 1.2 % IMMATURE GRANULOCYTES (test code = 1036) 1.3 % NUCLEATED RBCS (test code = 1065) 0.0 /100WBC'S PLATELET COUNT (test code = 1015) 108 K/UL ABSOLUTE NEUTROPHILS (test c ode = 1066) 5.70 K/UL ABSOLUTE LYMPHOCYTES (test c ode = 1067) 1.52 K/UL ABSOLUTE MONOCYTES (test cod e = 1068) 0.65 K/UL ABSOLUTE EOSINOPHILS (test c ode = 1040) 0.09 K/UL ABSOLUTE BASOPHILS (test cod e = 1069) 0.10 K/UL ABS IMMATURE GRANULOCYTES (t est code = 1020) 0.11 K/UL ABS NUCLEATED RBCS (test cod e = 58745) 0.00 K/UL COMMENTS (test code = 1016) (NOTE) CBC W/AUTO [id number] 00:00:00* Test Item Value Reference Range Interpretation Comme [...] = 1013) 1.2 % IMMATURE GRANULOCYTES (test code = 1036) 1.3 % NUCLEATED RBCS (test code = 1065) 0.0 /100WBC'S PLATELET COUNT (test code = 1015) 108 K/UL ABSOLUTE NEUTROPHILS (test c ode = 1066) 5.70 K/UL ABSOLUTE LYMPHOCYTES (test c ode = 1067) 1.52 K/UL ABSOLUTE MONOCYTES (test cod e = 1068) 0.65 K/UL ABSOLUTE EOSINOPHILS (test c ode = 1040) 0.09 K/UL ABSOLUTE BASOPHILS (test cod e = 1069) 0.10 K/UL ABS IMMATURE GRANULOCYTES (t est code = 1020) 0.11 K/UL ABS NUCLEATED RBCS (test cod e = 01864) 0.00 K/UL COMMENTS (test code = 1016) (NOTE) UNLABELLED SPECIMEN [ADDED]2021-12-06 00:00:00* Test Item Value Reference Range Interpretation Comme nts NOTE: (test code = 46487) CULTURE, [id number] 12:14:15SPECIMEN NUMBER: [id number] CULTURE, STOOL SPECIMEN NUMBER: [id number] SOURCE: STOOL REPORT STATUS: FINAL FINAL REPORT: 11/08/2021 NORMAL ENTERIC SEVERIANO RECOVERED. NO SALMONELLA, SHIGELLA, CAMPYLOBACTER, AEROMONAS OR PLESIOMONAS CULTURED. UNLESS OTHERWISE INDICATED, ALL TESTING PERFORMED [facility] [address] [place] [address] [employer]TER PLUMBING: SHAMAR ENRIQUE M.D. CLIA NUMBER [id number] [facility] [place]. [id number], [id number] 00:00:00* Test Item Value Reference Range Interpretation Comme nts CULTURE, STOOL (test code = 96414) SPECIMEN NUMBER: [id number] CULTURE, [id number] 00:00:00* Test Item Value Reference Range Interpretation Comme nts CULTURE, STOOL (test code = 51028) SPECIMEN NUMBER: [id number] CULTURE, [id number] 00:00:00* Test Item Value Reference Range Interpretation Comme nts CULTURE, STOOL (test code = 64656) SPECIMEN NUMBER: [id number] CULTURE, [id number] 00:00:00* Test Item Value Reference Range Interpretation Comme nts CULTURE, STOOL (test code = 06626) SPECIMEN NUMBER: [id number] CULTURE, [id number] 00:00:00* Test Item Value Reference Range Interpretation Comme nts CULTURE, STOOL (test code = 30972) SPECIMEN NUMBER: [id number] CULTURE, [id number] 00:00:00* Test Item Value Reference Range Interpretation Comme nts CULTURE, STOOL (test code = 67506) SPECIMEN NUMBER: [id number] CULTURE, [id number] 00:00:00* Test Item Value Reference Range Interpretation Comme nts CULTURE, STOOL (test code = 95705) SPECIMEN NUMBER: [id number] CULTURE, [id number] 00:00:00* Test Item Value Reference Range Interpretation Comme nts CULTURE, STOOL (test code = 36835) SPECIMEN NUMBER: [id number] CULTURE, [id number] 00:00:00* Test Item Value Reference Range Interpretation Comme nts CULTURE, STOOL (test code = 57981) SPECIMEN NUMBER: [id number] CULTURE, [id number] 00:00:00* Test Item Value Reference Range Interpretation Comme nts CULTURE, STOOL (test code = 30999) SPECIMEN NUMBER: [id number] CULTURE, [id number] 00:00:00* Test Item Value Reference Range Interpretation Comme nts CULTURE, STOOL (test code = 72624) SPECIMEN NUMBER: [id number] CULTURE, [id number] 00:00:00* Test Item Value Reference Range Interpretation Comme nts CULTURE, STOOL (test code = 96871) SPECIMEN NUMBER: [id number] CULTURE, [id number] 00:00:00* Test Item Value Reference Range Interpretation Comme nts CULTURE, STOOL (test code = 65377) SPECIMEN NUMBER: [id number] CULTURE, [id number] 00:00:00* Test Item Value Reference Range Interpretation Comme nts CULTURE, STOOL (test code = 90138) SPECIMEN NUMBER: [id number] CULTURE, [id number] 00:00:00* Test Item Value Reference Range Interpretation Comme nts CULTURE, STOOL (test code = 40982) SPECIMEN NUMBER: [id number] CULTURE, [id number] 00:00:00* Test Item Value Reference Range Interpretation Comme nts CULTURE, STOOL (test code = 71220) SPECIMEN NUMBER: [id number] HEMOGLOBIN [id number] 03:11:00* Test Item Value Reference Range Interpretation Comme nts HEMOGLOBIN A1c (test code = 92563) 9.5 % 4.2-5.6 H [employer] GUIDELINES FOR HGB A1C: PREDIABETES/INCREASED RISK . . . . . . . 5.7-6.4% DIAGNOSIS OF DIABETES . . . . . . . . . >=6.5% WITH CONFIRMATION OR APPROPRIATE SYMPTOMS NOTE: ASSAY MAY BE AFFECTED BY HEMOGLOBINOPATHIES (SICKLE CELL ANEMIA, S-C DISEASE, OTHERS) OR ARTIFICIALLY LOWERED BY DECREASED RED CELL SURVIVAL (HEMOLYTIC ANEMIAS, BLOOD LOSS, ETC.). CONSIDER ALTERNATE TESTING OR LABORATORY CONSULTATION. UNLESS OTHERWISE INDICATED, ALL TESTING PERFORMED [facility] [employer] [address] [place] [address] DRAFTER PLUMBING: SHAMAR ENRIQUE M.D. [facility] NUMBER [id number] [facility] [place]. [id number] HEMOGLOBIN [id number] 00:00:00* Test Item Value Reference Range Interpretation Comme nts HEMOGLOBIN A1c (test code = 41979) 9.5 % HEMOGLOBIN [id number] 00:00:00* Test Item Value Reference Range Interpretation Comme nts HEMOGLOBIN A1c (test code = 71406) 9.5 % HEMOGLOBIN [id number] 00:00:00* Test Item Value Reference Range Interpretation Comme nts HEMOGLOBIN A1c (test code = 64267) 9.5 % HEMOGLOBIN [id number] 00:00:00* Test Item Value Reference Range Interpretation Comme nts HEMOGLOBIN A1c (test code = 57053) 9.5 % HEMOGLOBIN [id number] 00:00:00* Test Item Value Reference Range Interpretation Comme nts HEMOGLOBIN A1c (test code = 05497) 9.5 % HEMOGLOBIN [id number] 00:00:00* Test Item Value Reference Range Interpretation Comme nts HEMOGLOBIN A1c (test code = 02408) 9.5 % HEMOGLOBIN [id number] 00:00:00* Test Item Value Reference Range Interpretation Comme nts HEMOGLOBIN A1c (test code = 92699) 9.5 % HEMOGLOBIN [id number] 00:00:00* Test Item Value Reference Range Interpretation Comme nts HEMOGLOBIN A1c (test code = 05224) 9.5 % HEMOGLOBIN [id number] 00:00:00* Test Item Value Reference Range Interpretation Comme nts HEMOGLOBIN A1c (test code = 68223) 9.5 % HEMOGLOBIN [id number] 00:00:00* Test Item Value Reference Range Interpretation Comme nts HEMOGLOBIN A1c (test code = 45552) 9.5 % HEMOGLOBIN [id number] 00:00:00* Test Item Value Reference Range Interpretation Comme nts HEMOGLOBIN A1c (test code = 70524) 9.5 % HEMOGLOBIN [id number] 00:00:00* Test Item Value Reference Range Interpretation Comme nts HEMOGLOBIN A1c (test code = 71811) 9.5 % HEMOGLOBIN [id number] 00:00:00* Test Item Value Reference Range Interpretation Comme nts HEMOGLOBIN A1c (test code = 46381) 9.5 % HEMOGLOBIN [id number] 00:00:00* Test Item Value Reference Range Interpretation Comme nts HEMOGLOBIN A1c (test code = 25828) 9.5 % HEMOGLOBIN [id number] 00:00:00* Test Item Value Reference Range Interpretation Comme nts HEMOGLOBIN A1c (test code = 26908) 9.5 % HEMOGLOBIN [id number] 00:00:00* Test Item Value Reference Range Interpretation Comme nts HEMOGLOBIN A1c (test code = 75503) 9.5 % HEMOGLOBIN [id number] 00:00:00* Test Item Value Reference Range Interpretation Comme nts HEMOGLOBIN A1c (test code = 64523) 9.5 % HEMOGLOBIN [id number] 00:00:00* Test Item Value Reference Range Interpretation Comme nts HEMOGLOBIN A1c (test code = 62109) 9.5 % HEMOGLOBIN [id number] 00:00:00* Test Item Value Reference Range Interpretation Comme nts HEMOGLOBIN A1c (test code = 36724) 9.5 % HEMOGLOBIN [id number] 00:00:00* Test Item Value Reference Range Interpretation Comme nts HEMOGLOBIN A1c (test code = 81292) 9.5 % HEMOGLOBIN [id number] 00:00:00* Test Item Value Reference Range Interpretation Comme nts HEMOGLOBIN A1c (test code = 67714) 9.5 % HEMOGLOBIN [id number] 00:00:00* Test Item Value Reference Range Interpretation Comme nts HEMOGLOBIN A1c (test code = 39395) 9.5 % HEMOGLOBIN [id number] 00:00:00* Test Item Value Reference Range Interpretation Comme nts HEMOGLOBIN A1c (test code = 93200) 9.5 % HEMOGLOBIN [id number] 00:00:00* Test Item Value Reference Range Interpretation Comme nts HEMOGLOBIN A1c (test code = 34453) 9.5 % CBC W/AUTO DIFF WITH [id number] 22:21:04* Test Item Value Reference Range Interpretation Comme nts WBC (test code = 1001) 13.2 K/UL 3.5-11.0 H RBC (test code = 1002) 4.94 M/UL 4.50-6.10 HEMOGLOBIN (test code = 1003) 15.7 G/DL 13.5-17.0 HEMATOCRIT (test code = 1004) 48.8 % 40.0-51.0 MCV (test code = 1005) 98.8 fL 80.0-99.0 MCH (test code = 1006) 31.8 PG 25.0-33.0 MCHC (test code = 1007) 32.2 G/DL 31.0-36.0 RDW (test code = 1038) 13.6 % 11.5-15.0 NEUTROPHILS (test code = 1008) 84.7 % AUTOMATED DIFFERENTIAL CONFIRMED WITH MANUAL SLIDE REVIEW. LYMPHOCYTES (test code = 1010) 6.2 % MONOCYTES (test code = 1011) 6.0 % EOSINOPHILS (test code = 1012) 0.1 % BASOPHILS (test code = 1013) 0.3 % IMMATURE GRANULOCYTES (test code = 1036) 2.7 % NUCLEATED RBCS (test code = 1065) 0.0 /100 WBC'S See_Comment [Automated message] The system which generated this result transmitted reference range: 0.0. The reference range was not used to interpret this result as normal/abnormal. PLATELET COUNT (test code = 1015) 96 K/UL 130-400 L ABSOLUTE NEUTROPHILS (test code = 1066) 11.18 K/UL 1.50-7.50 H ABSOLUTE LYMPHOCYTES (test code = 1067) 0.82 K/UL 1.00-4.00 L ABSOLUTE MONOCYTES (test code = 1068) 0.79 K/UL 0.20-1.00 ABSOLUTE EOSINOPHILS (test code = 1040) 0.01 K/UL 0.00-0.50 ABSOLUTE BASOPHILS (test code = 1069) 0.04 K/UL 0.00-0.20 ABS IMMATURE GRANULOCYTES (test code = 1020) 0.36 K/UL 0.00-0.10 H ABS NUCLEATED RBCS (test code = 54332) 0.00 K/UL 0.00-0.11 COMMENTS (test code = 1016) (NOTE) NO SPECIFIC RBC ABNORMALITIES IDENTIFIED SEE ADDITIONAL COMMENTS BELOW: PLATELET CLUMPING PRESENT; TRUE PLATELET COUNT MAY BE HIGHER. IF CLINICALLY INDICATED, ORDER REPEAT PLATELET COUNT WITH CITRATE ANTICOAGULATED TUBE (CPL ORDER CODE 1047). COMPREHENSIVE METABOLIC [id number] 04:10:42* Test Item Value Reference Range Interpretation Comme nts GLUCOSE (test code = 2217) 318 MG/DL 70-99 H BUN (test code = 2207) 21 MG/DL 8-23 CREATININE (test code = 2214) 0.75 MG/DL 0.80-1.40 L eGFR (2020 CKD-EPI) (test code = 76494) 103 ML/MIN/1.73 >60 CALC BUN/CREAT (test code = 2235) 28 RATIO 6-28 SODIUM (test code = 223) 133 MEQ/L 133-146 POTASSIUM (test code = 2228) 4.3 MEQ/L 3.5-5.4 CHLORIDE (test code = 2215) 99 MEQ/L 95-107 CARBON DIOXIDE (test code = 2206) 20 MEQ/L 19-31 CALCIUM (test code = 220) 8.9 MG/DL 8.5-10.5 PROTEIN, TOTAL (test code = 222) 6.8 G/DL 6.1-8.3 ALBUMIN (test code = 2201) 4.1 G/DL 3.5-5.2 CALC GLOBULIN (test code = 2240) 2.7 G/DL 1.9-3.7 CALC A/G RATIO (test code = 2234) 1.5 RATIO 1.0-2.6 BILIRUBIN, TOTAL (test code = 220) 0.4 MG/DL See_Comment [Automated me ssage] The system which generated this result transmitted reference range: <=1.2. The reference range was not used to interpret this result as normal/abnormal. ALKALINE PHOSPHATASE (test code = 4) 62 U/L 40-123 AST (test code = 2218) 16 U/L 9-50 ALT (test code = 2219) 25 U/L 5-50 LIPID [id number] 04:10:42* Test Item Value Reference Range Interpretation Comme nts CHOLESTEROL (test code = 2210) 153 MG/DL <200 TRIGLYCERIDES (test code = 2232) 114 MG/DL <150 HDL CHOLESTEROL (test code = 2220) 63 MG/DL >39 CALC LDL CHOL (test code = 2237) 70 MG/DL <100 NOTE: CALCULATED LDL IS BASED ON LEONOR-JAUREGUI METHOD WHICHINCLUDES ADJUSTABLE TRIGLYCERIDE:VLDL CHOLESTEROL RATIO.THIS FACTOR VARIES BY MEASURED TRIGLYCERIDE AND NON-HDLCHOLESTEROL CONCENTRATIONS WITH INCREASED CALCULATED LDL SEENIN HIGHER TRIGLYCERIDE OR LOWER NON-HDL SPECIMENS. FOR MOREINFORMATION, SEE CLIENT ANNOUNCEMENT AT [email or web address] [email or web address] RATIO LDL/HDL (test code = 2238) 1.11 RATIO <3.55 COMPREHENSIVE METABOLIC [id number] 00:00:00* Test Item Value Reference Range Interpretation Comme nts GLUCOSE (test code = 2217) 318 MG/DL BUN (test code = 2208) 21 MG/DL CREATININE (test code = 2214) 0.75 MG/DL eGFR (2020 CKD-EPI) (test code = 98817) 103 ML/MIN/1.73 CALC BUN/CREAT (test code = 2235) 28 RATIO SODIUM (test code = 2231) 133 MEQ/L POTASSIUM (test code = 2228) 4.3 MEQ/L CHLORIDE (test code = 2215) 99 MEQ/L CARBON DIOXIDE (test code = 2206) 20 MEQ/L CALCIUM (test code = 2209) 8.9 MG/DL PROTEIN, TOTAL (test code = 2229) 6.8 G/DL ALBUMIN (test code = 2201) 4.1 G/DL CALC GLOBULIN (test code = 2240) 2.7 G/DL CALC A/G RATIO (test code = 2234) 1.5 RATIO BILIRUBIN, TOTAL (test code = 2207) 0.4 MG/DL ALKALINE PHOSPHATASE (test code = 2204) 62 U/L AST (test code = 2218) 16 U/L ALT (test code = 2219) 25 U/L COMPREHENSIVE METABOLIC [id number] 00:00:00* Test Item Value Reference Range Interpretation Comme nts GLUCOSE (test code = 2217) 318 MG/DL BUN (test code = 2208) 21 MG/DL CREATININE (test code = 2214) 0.75 MG/DL eGFR (2020 CKD-EPI) (test code = 10855) 103 ML/MIN/1.73 CALC BUN/CREAT (test code = 2235) 28 RATIO SODIUM (test code = 2231) 133 MEQ/L POTASSIUM (test code = 2228) 4.3 MEQ/L CHLORIDE (test code = 2215) 99 MEQ/L CARBON DIOXIDE (test code = 2206) 20 MEQ/L CALCIUM (test code = 2209) 8.9 MG/DL PROTEIN, TOTAL (test code = 2229) 6.8 G/DL ALBUMIN (test code = 2201) 4.1 G/DL CALC GLOBULIN (test code = 2240) 2.7 G/DL CALC A/G RATIO (test code = 2234) 1.5 RATIO BILIRUBIN, TOTAL (test code = 2207) 0.4 MG/DL ALKALINE PHOSPHATASE (test code = 2204) 62 U/L AST (test code = 2218) 16 U/L ALT (test code = 2219) 25 U/L LIPID [id number] 00:00:00* Test Item Value Reference Range Interpretation Comme nts CHOLESTEROL (test code = 2210) 153 MG/DL TRIGLYCERIDES (test code = 2232) 114 MG/DL HDL CHOLESTEROL (test code = 2220) 63 MG/DL CALC LDL CHOL (test code = 2237) 70 MG/DL RISK RATIO LDL/HDL (test cod e = 2238) 1.11 RATIO LIPID [id number] 00:00:00* Test Item Value Reference Range Interpretation Comme nts CHOLESTEROL (test code = 2210) 153 MG/DL TRIGLYCERIDES (test code = 2232) 114 MG/DL HDL CHOLESTEROL (test code = 2220) 63 MG/DL CALC LDL CHOL (test code = 2237) 70 MG/DL RISK RATIO LDL/HDL (test cod e = 2238) 1.11 RATIO CBC W/AUTO [id number] 00:00:00* Test Item Value Reference Range Interpretation Comme nts WBC (test code = 1001) 13.2 K/UL [...] = 1013) 0.3 % IMMATURE GRANULOCYTES (test code = 1036) 2.7 % NUCLEATED RBCS (test code = 1065) 0.0 /100WBC'S PLATELET COUNT (test code = 1015) 96 K/UL ABSOLUTE NEUTROPHILS (test c ode = 1066) 11.18 K/UL ABSOLUTE LYMPHOCYTES (test c ode = 1067) 0.82 K/UL ABSOLUTE MONOCYTES (test cod e = 1068) 0.79 K/UL ABSOLUTE EOSINOPHILS (test c ode = 1040) 0.01 K/UL ABSOLUTE BASOPHILS (test cod e = 1069) 0.04 K/UL ABS IMMATURE GRANULOCYTES (t est code = 1020) 0.36 K/UL ABS NUCLEATED RBCS (test cod e = 27851) 0.00 K/UL COMMENTS (test code = 1016) (NOTE) CBC W/AUTO [id number] 00:00:00* Test Item Value Reference Range Interpretation Comme nts WBC (test code = 1001) 13.2 K/UL [...] = 1013) 0.3 % IMMATURE GRANULOCYTES (test code = 1036) 2.7 % NUCLEATED RBCS (test code = 1065) 0.0 /100WBC'S PLATELET COUNT (test code = 1015) 96 K/UL ABSOLUTE NEUTROPHILS (test c ode = 1066) 11.18 K/UL ABSOLUTE LYMPHOCYTES (test c ode = 1067) 0.82 K/UL ABSOLUTE MONOCYTES (test cod e = 1068) 0.79 K/UL ABSOLUTE EOSINOPHILS (test c ode = 1040) 0.01 K/UL ABSOLUTE BASOPHILS (test cod e = 1069) 0.04 K/UL ABS IMMATURE GRANULOCYTES (t est code = 1020) 0.36 K/UL ABS NUCLEATED RBCS (test cod e = 47679) 0.00 K/UL COMMENTS (test code = 1016) (NOTE) CBC W/AUTO [id number] 00:00:00* Test Item Value Reference Range Interpretation Comme nts WBC (test code = 1001) 13.2 K/UL [...] = 1013) 0.3 % IMMATURE GRANULOCYTES (test code = 1036) 2.7 % NUCLEATED RBCS (test code = 1065) 0.0 /100WBC'S PLATELET COUNT (test code = 1015) 96 K/UL ABSOLUTE NEUTROPHILS (test c ode = 1066) 11.18 K/UL ABSOLUTE LYMPHOCYTES (test c ode = 1067) 0.82 K/UL ABSOLUTE MONOCYTES (test cod e = 1068) 0.79 K/UL ABSOLUTE EOSINOPHILS (test c ode = 1040) 0.01 K/UL ABSOLUTE BASOPHILS (test cod e = 1069) 0.04 K/UL ABS IMMATURE GRANULOCYTES (t est code = 1020) 0.36 K/UL ABS NUCLEATED RBCS (test cod e = 38062) 0.00 K/UL COMMENTS (test code = 1016) (NOTE) COMPREHENSIVE METABOLIC [id number] 00:00:00* Test Item Value Reference Range Interpretation Comme nts GLUCOSE (test code = 2217) 318 MG/DL BUN (test code = 2208) 21 MG/DL CREATININE (test code = 2214) 0.75 MG/DL eGFR (2020 CKD-EPI) (test code = 27840) 103 ML/MIN/1.73 CALC BUN/CREAT (test code = 2235) 28 RATIO SODIUM (test code = 2231) 133 MEQ/L POTASSIUM (test code = 2228) 4.3 MEQ/L CHLORIDE (test code = 2215) 99 MEQ/L CARBON DIOXIDE (test code = 2206) 20 MEQ/L CALCIUM (test code = 2209) 8.9 MG/DL PROTEIN, TOTAL (test code = 2229) 6.8 G/DL ALBUMIN (test code = 2201) 4.1 G/DL CALC GLOBULIN (test code = 2240) 2.7 G/DL CALC A/G RATIO (test code = 2234) 1.5 RATIO BILIRUBIN, TOTAL (test code = 2207) 0.4 MG/DL ALKALINE PHOSPHATASE (test code = 2204) 62 U/L AST (test code = 2218) 16 U/L ALT (test code = 2219) 25 U/L COMPREHENSIVE METABOLIC [id number] 00:00:00* Test Item Value Reference Range Interpretation Comme nts GLUCOSE (test code = 2217) 318 MG/DL BUN (test code = 2208) 21 MG/DL CREATININE (test code = 2214) 0.75 MG/DL eGFR (2020 CKD-EPI) (test code = 33843) 103 ML/MIN/1.73 CALC BUN/CREAT (test code = 2235) 28 RATIO SODIUM (test code = 2231) 133 MEQ/L POTASSIUM (test code = 2228) 4.3 MEQ/L CHLORIDE (test code = 2215) 99 MEQ/L CARBON DIOXIDE (test code = 2206) 20 MEQ/L CALCIUM (test code = 2209) 8.9 MG/DL PROTEIN, TOTAL (test code = 2229) 6.8 G/DL ALBUMIN (test code = 2201) 4.1 G/DL CALC GLOBULIN (test code = 2240) 2.7 G/DL CALC A/G RATIO (test code = 2234) 1.5 RATIO BILIRUBIN, TOTAL (test code = 2207) 0.4 MG/DL ALKALINE PHOSPHATASE (test code = 2204) 62 U/L AST (test code = 2218) 16 U/L ALT (test code = 2219) 25 U/L LIPID [id number] 00:00:00* Test Item Value Reference Range Interpretation Comme nts CHOLESTEROL (test code = 2210) 153 MG/DL TRIGLYCERIDES (test code = 2232) 114 MG/DL HDL CHOLESTEROL (test code = 2220) 63 MG/DL CALC LDL CHOL (test code = 2237) 70 MG/DL RISK RATIO LDL/HDL (test cod e = 2238) 1.11 RATIO LIPID [id number] 00:00:00* Test Item Value Reference Range Interpretation Comme nts CHOLESTEROL (test code = 2210) 153 MG/DL TRIGLYCERIDES (test code = 2232) 114 MG/DL HDL CHOLESTEROL (test code = 2220) 63 MG/DL CALC LDL CHOL (test code = 2237) 70 MG/DL RISK RATIO LDL/HDL (test cod e = 2238) 1.11 RATIO CBC W/AUTO [id number] 00:00:00* Test Item Value Reference Range Interpretation Comme nts WBC (test code = 1001) 13.2 K/UL [...] = 1013) 0.3 % IMMATURE GRANULOCYTES (test code = 1036) 2.7 % NUCLEATED RBCS (test code = 1065) 0.0 /100WBC'S PLATELET COUNT (test code = 1015) 96 K/UL ABSOLUTE NEUTROPHILS (test c ode = 1066) 11.18 K/UL ABSOLUTE LYMPHOCYTES (test c ode = 1067) 0.82 K/UL ABSOLUTE MONOCYTES (test cod e = 1068) 0.79 K/UL ABSOLUTE EOSINOPHILS (test c ode = 1040) 0.01 K/UL ABSOLUTE BASOPHILS (test cod e = 1069) 0.04 K/UL ABS IMMATURE GRANULOCYTES (t est code = 1020) 0.36 K/UL ABS NUCLEATED RBCS (test cod e = 69968) 0.00 K/UL COMMENTS (test code = 1016) (NOTE) CBC W/AUTO [id number] 00:00:00* Test Item Value Reference Range Interpretation Comme nts WBC (test code = 1001) 13.2 K/UL [...] = 1013) 0.3 % IMMATURE GRANULOCYTES (test code = 1036) 2.7 % NUCLEATED RBCS (test code = 1065) 0.0 /100WBC'S PLATELET COUNT (test code = 1015) 96 K/UL ABSOLUTE NEUTROPHILS (test c ode = 1066) 11.18 K/UL ABSOLUTE LYMPHOCYTES (test c ode = 1067) 0.82 K/UL ABSOLUTE MONOCYTES (test cod e = 1068) 0.79 K/UL ABSOLUTE EOSINOPHILS (test c ode = 1040) 0.01 K/UL ABSOLUTE BASOPHILS (test cod e = 1069) 0.04 K/UL ABS IMMATURE GRANULOCYTES (t est code = 1020) 0.36 K/UL ABS NUCLEATED RBCS (test cod e = 61551) 0.00 K/UL COMMENTS (test code = 1016) (NOTE) CBC W/AUTO [id number] 00:00:00* Test Item Value Reference Range Interpretation Comme nts WBC (test code = 1001) 13.2 K/UL [...] = 1013) 0.3 % IMMATURE GRANULOCYTES (test code = 1036) 2.7 % NUCLEATED RBCS (test code = 1065) 0.0 /100WBC'S PLATELET COUNT (test code = 1015) 96 K/UL ABSOLUTE NEUTROPHILS (test c ode = 1066) 11.18 K/UL ABSOLUTE LYMPHOCYTES (test c ode = 1067) 0.82 K/UL ABSOLUTE MONOCYTES (test cod e = 1068) 0.79 K/UL ABSOLUTE EOSINOPHILS (test c ode = 1040) 0.01 K/UL ABSOLUTE BASOPHILS (test cod e = 1069) 0.04 K/UL ABS IMMATURE GRANULOCYTES (t est code = 1020) 0.36 K/UL ABS NUCLEATED RBCS (test cod e = 61043) 0.00 K/UL COMMENTS (test code = 1016) (NOTE) COMPREHENSIVE METABOLIC [id number] 00:00:00* Test Item Value Reference Range Interpretation Comme nts GLUCOSE (test code = 2217) 318 MG/DL BUN (test code = 2208) 21 MG/DL CREATININE (test code = 2214) 0.75 MG/DL eGFR (2020 CKD-EPI) (test code = 56677) 103 ML/MIN/1.73 CALC BUN/CREAT (test code = 2235) 28 RATIO SODIUM (test code = 2231) 133 MEQ/L POTASSIUM (test code = 2228) 4.3 MEQ/L CHLORIDE (test code = 2215) 99 MEQ/L CARBON DIOXIDE (test code = 2206) 20 MEQ/L CALCIUM (test code = 2209) 8.9 MG/DL PROTEIN, TOTAL (test code = 2229) 6.8 G/DL ALBUMIN (test code = 2201) 4.1 G/DL CALC GLOBULIN (test code = 2240) 2.7 G/DL CALC A/G RATIO (test code = 2234) 1.5 RATIO BILIRUBIN, TOTAL (test code = 2207) 0.4 MG/DL ALKALINE PHOSPHATASE (test code = 2204) 62 U/L AST (test code = 2218) 16 U/L ALT (test code = 2219) 25 U/L COMPREHENSIVE METABOLIC [id number] 00:00:00* Test Item Value Reference Range Interpretation Comme nts GLUCOSE (test code = 2217) 318 MG/DL BUN (test code = 2208) 21 MG/DL CREATININE (test code = 2214) 0.75 MG/DL eGFR (2020 CKD-EPI) (test code = 47805) 103 ML/MIN/1.73 CALC BUN/CREAT (test code = 2235) 28 RATIO SODIUM (test code = 2231) 133 MEQ/L POTASSIUM (test code = 2228) 4.3 MEQ/L CHLORIDE (test code = 2215) 99 MEQ/L CARBON DIOXIDE (test code = 2206) 20 MEQ/L CALCIUM (test code = 2209) 8.9 MG/DL PROTEIN, TOTAL (test code = 2229) 6.8 G/DL ALBUMIN (test code = 2201) 4.1 G/DL CALC GLOBULIN (test code = 2240) 2.7 G/DL CALC A/G RATIO (test code = 2234) 1.5 RATIO BILIRUBIN, TOTAL (test code = 2207) 0.4 MG/DL ALKALINE PHOSPHATASE (test code = 2204) 62 U/L AST (test code = 2218) 16 U/L ALT (test code = 2219) 25 U/L LIPID [id number] 00:00:00* Test Item Value Reference Range Interpretation Comme nts CHOLESTEROL (test code = 2210) 153 MG/DL TRIGLYCERIDES (test code = 2232) 114 MG/DL HDL CHOLESTEROL (test code = 2220) 63 MG/DL CALC LDL CHOL (test code = 2237) 70 MG/DL RISK RATIO LDL/HDL (test cod e = 2238) 1.11 RATIO LIPID [id number] 00:00:00* Test Item Value Reference Range Interpretation Comme nts CHOLESTEROL (test code = 2210) 153 MG/DL TRIGLYCERIDES (test code = 2232) 114 MG/DL HDL CHOLESTEROL (test code = 2220) 63 MG/DL CALC LDL CHOL (test code = 2237) 70 MG/DL RISK RATIO LDL/HDL (test cod e = 2238) 1.11 RATIO CBC W/AUTO [id number] 00:00:00* Test Item Value Reference Range Interpretation Comme nts WBC (test code = 1001) 13.2 K/UL [...] = 1013) 0.3 % IMMATURE GRANULOCYTES (test code = 1036) 2.7 % NUCLEATED RBCS (test code = 1065) 0.0 /100WBC'S PLATELET COUNT (test code = 1015) 96 K/UL ABSOLUTE NEUTROPHILS (test c ode = 1066) 11.18 K/UL ABSOLUTE LYMPHOCYTES (test c ode = 1067) 0.82 K/UL ABSOLUTE MONOCYTES (test cod e = 1068) 0.79 K/UL ABSOLUTE EOSINOPHILS (test c ode = 1040) 0.01 K/UL ABSOLUTE BASOPHILS (test cod e = 1069) 0.04 K/UL ABS IMMATURE GRANULOCYTES (t est code = 1020) 0.36 K/UL ABS NUCLEATED RBCS (test cod e = 30822) 0.00 K/UL COMMENTS (test code = 1016) (NOTE) CBC W/AUTO [id number] 00:00:00* Test Item Value Reference Range Interpretation Comme nts WBC (test code = 1001) 13.2 K/UL [...] = 1013) 0.3 % IMMATURE GRANULOCYTES (test code = 1036) 2.7 % NUCLEATED RBCS (test code = 1065) 0.0 /100WBC'S PLATELET COUNT (test code = 1015) 96 K/UL ABSOLUTE NEUTROPHILS (test c ode = 1066) 11.18 K/UL ABSOLUTE LYMPHOCYTES (test c ode = 1067) 0.82 K/UL ABSOLUTE MONOCYTES (test cod e = 1068) 0.79 K/UL ABSOLUTE EOSINOPHILS (test c ode = 1040) 0.01 K/UL ABSOLUTE BASOPHILS (test cod e = 1069) 0.04 K/UL ABS IMMATURE GRANULOCYTES (t est code = 1020) 0.36 K/UL ABS NUCLEATED RBCS (test cod e = 60058) 0.00 K/UL COMMENTS (test code = 1016) (NOTE) CBC W/AUTO [id number] 00:00:00* Test Item Value Reference Range Interpretation Comme nts WBC (test code = 1001) 13.2 K/UL [...] = 1013) 0.3 % IMMATURE GRANULOCYTES (test code = 1036) 2.7 % NUCLEATED RBCS (test code = 1065) 0.0 /100WBC'S PLATELET COUNT (test code = 1015) 96 K/UL ABSOLUTE NEUTROPHILS (test c ode = 1066) 11.18 K/UL ABSOLUTE LYMPHOCYTES (test c ode = 1067) 0.82 K/UL ABSOLUTE MONOCYTES (test cod e = 1068) 0.79 K/UL ABSOLUTE EOSINOPHILS (test c ode = 1040) 0.01 K/UL ABSOLUTE BASOPHILS (test cod e = 1069) 0.04 K/UL ABS IMMATURE GRANULOCYTES (t est code = 1020) 0.36 K/UL ABS NUCLEATED RBCS (test cod e = 94107) 0.00 K/UL COMMENTS (test code = 1016) (NOTE) COMPREHENSIVE METABOLIC [id number] 00:00:00* Test Item Value Reference Range Interpretation Comme nts GLUCOSE (test code = 2217) 318 MG/DL BUN (test code = 2208) 21 MG/DL CREATININE (test code = 2214) 0.75 MG/DL eGFR (2020 CKD-EPI) (test code = 30023) 103 ML/MIN/1.73 CALC BUN/CREAT (test code = 2235) 28 RATIO SODIUM (test code = 2231) 133 MEQ/L POTASSIUM (test code = 2228) 4.3 MEQ/L CHLORIDE (test code = 2215) 99 MEQ/L CARBON DIOXIDE (test code = 2206) 20 MEQ/L CALCIUM (test code = 2209) 8.9 MG/DL PROTEIN, TOTAL (test code = 2229) 6.8 G/DL ALBUMIN (test code = 2201) 4.1 G/DL CALC GLOBULIN (test code = 2240) 2.7 G/DL CALC A/G RATIO (test code = 2234) 1.5 RATIO BILIRUBIN, TOTAL (test code = 2207) 0.4 MG/DL ALKALINE PHOSPHATASE (test code = 2204) 62 U/L AST (test code = 2218) 16 U/L ALT (test code = 2219) 25 U/L COMPREHENSIVE METABOLIC [id number] 00:00:00* Test Item Value Reference Range Interpretation Comme nts GLUCOSE (test code = 2217) 318 MG/DL BUN (test code = 2208) 21 MG/DL CREATININE (test code = 2214) 0.75 MG/DL eGFR (2020 CKD-EPI) (test code = 52523) 103 ML/MIN/1.73 CALC BUN/CREAT (test code = 2235) 28 RATIO SODIUM (test code = 2231) 133 MEQ/L POTASSIUM (test code = 2228) 4.3 MEQ/L CHLORIDE (test code = 2215) 99 MEQ/L CARBON DIOXIDE (test code = 2206) 20 MEQ/L CALCIUM (test code = 2209) 8.9 MG/DL PROTEIN, TOTAL (test code = 2229) 6.8 G/DL ALBUMIN (test code = 2201) 4.1 G/DL CALC GLOBULIN (test code = 2240) 2.7 G/DL CALC A/G RATIO (test code = 2234) 1.5 RATIO BILIRUBIN, TOTAL (test code = 2207) 0.4 MG/DL ALKALINE PHOSPHATASE (test code = 2204) 62 U/L AST (test code = 2218) 16 U/L ALT (test code = 2219) 25 U/L LIPID [id number] 00:00:00* Test Item Value Reference Range Interpretation Comme nts CHOLESTEROL (test code = 2210) 153 MG/DL TRIGLYCERIDES (test code = 2232) 114 MG/DL HDL CHOLESTEROL (test code = 2220) 63 MG/DL CALC LDL CHOL (test code = 2237) 70 MG/DL RISK RATIO LDL/HDL (test cod e = 2238) 1.11 RATIO LIPID [id number] 00:00:00* Test Item Value Reference Range Interpretation Comme nts CHOLESTEROL (test code = 2210) 153 MG/DL TRIGLYCERIDES (test code = 2232) 114 MG/DL HDL CHOLESTEROL (test code = 2220) 63 MG/DL CALC LDL CHOL (test code = 2237) 70 MG/DL RISK RATIO LDL/HDL (test cod e = 2238) 1.11 RATIO CBC W/AUTO [id number] 00:00:00* Test Item Value Reference Range Interpretation Comme nts WBC (test code = 1001) 13.2 K/UL [...] = 1013) 0.3 % IMMATURE GRANULOCYTES (test code = 1036) 2.7 % NUCLEATED RBCS (test code = 1065) 0.0 /100WBC'S PLATELET COUNT (test code = 1015) 96 K/UL ABSOLUTE NEUTROPHILS (test c ode = 1066) 11.18 K/UL ABSOLUTE LYMPHOCYTES (test c ode = 1067) 0.82 K/UL ABSOLUTE MONOCYTES (test cod e = 1068) 0.79 K/UL ABSOLUTE EOSINOPHILS (test c ode = 1040) 0.01 K/UL ABSOLUTE BASOPHILS (test cod e = 1069) 0.04 K/UL ABS IMMATURE GRANULOCYTES (t est code = 1020) 0.36 K/UL ABS NUCLEATED RBCS (test cod e = 55432) 0.00 K/UL COMMENTS (test code = 1016) (NOTE) CBC W/AUTO [id number] 00:00:00* Test Item Value Reference Range Interpretation Comme nts WBC (test code = 1001) 13.2 K/UL [...] = 1013) 0.3 % IMMATURE GRANULOCYTES (test code = 1036) 2.7 % NUCLEATED RBCS (test code = 1065) 0.0 /100WBC'S PLATELET COUNT (test code = 1015) 96 K/UL ABSOLUTE NEUTROPHILS (test c ode = 1066) 11.18 K/UL ABSOLUTE LYMPHOCYTES (test c ode = 1067) 0.82 K/UL ABSOLUTE MONOCYTES (test cod e = 1068) 0.79 K/UL ABSOLUTE EOSINOPHILS (test c ode = 1040) 0.01 K/UL ABSOLUTE BASOPHILS (test cod e = 1069) 0.04 K/UL ABS IMMATURE GRANULOCYTES (t est code = 1020) 0.36 K/UL ABS NUCLEATED RBCS (test cod e = 38040) 0.00 K/UL COMMENTS (test code = 1016) (NOTE) CBC W/AUTO [id number] 00:00:00* Test Item Value Reference Range Interpretation Comme nts WBC (test code = 1001) 13.2 K/UL [...] = 1013) 0.3 % IMMATURE GRANULOCYTES (test code = 1036) 2.7 % NUCLEATED RBCS (test code = 1065) 0.0 /100WBC'S PLATELET COUNT (test code = 1015) 96 K/UL ABSOLUTE NEUTROPHILS (test c ode = 1066) 11.18 K/UL ABSOLUTE LYMPHOCYTES (test c ode = 1067) 0.82 K/UL ABSOLUTE MONOCYTES (test cod e = 1068) 0.79 K/UL ABSOLUTE EOSINOPHILS (test c ode = 1040) 0.01 K/UL ABSOLUTE BASOPHILS (test cod e = 1069) 0.04 K/UL ABS IMMATURE GRANULOCYTES (t est code = 1020) 0.36 K/UL ABS NUCLEATED RBCS (test cod e = 09024) 0.00 K/UL COMMENTS (test code = 1016) (NOTE) COMPREHENSIVE METABOLIC [id number] 00:00:00* Test Item Value Reference Range Interpretation Comme nts GLUCOSE (test code = 2217) 318 MG/DL BUN (test code = 2208) 21 MG/DL CREATININE (test code = 2214) 0.75 MG/DL eGFR (2020 CKD-EPI) (test code = 46782) 103 ML/MIN/1.73 CALC BUN/CREAT (test code = 2235) 28 RATIO SODIUM (test code = 2231) 133 MEQ/L POTASSIUM (test code = 2228) 4.3 MEQ/L CHLORIDE (test code = 2215) 99 MEQ/L CARBON DIOXIDE (test code = 2206) 20 MEQ/L CALCIUM (test code = 2209) 8.9 MG/DL PROTEIN, TOTAL (test code = 2229) 6.8 G/DL ALBUMIN (test code = 2201) 4.1 G/DL CALC GLOBULIN (test code = 2240) 2.7 G/DL CALC A/G RATIO (test code = 2234) 1.5 RATIO BILIRUBIN, TOTAL (test code = 2207) 0.4 MG/DL ALKALINE PHOSPHATASE (test code = 2204) 62 U/L AST (test code = 2218) 16 U/L ALT (test code = 2219) 25 U/L COMPREHENSIVE METABOLIC [id number] 00:00:00* Test Item Value Reference Range Interpretation Comme nts GLUCOSE (test code = 2217) 318 MG/DL BUN (test code = 2208) 21 MG/DL CREATININE (test code = 2214) 0.75 MG/DL eGFR (2020 CKD-EPI) (test code = 53188) 103 ML/MIN/1.73 CALC BUN/CREAT (test code = 2235) 28 RATIO SODIUM (test code = 2231) 133 MEQ/L POTASSIUM (test code = 2228) 4.3 MEQ/L CHLORIDE (test code = 2215) 99 MEQ/L CARBON DIOXIDE (test code = 2206) 20 MEQ/L CALCIUM (test code = 2209) 8.9 MG/DL PROTEIN, TOTAL (test code = 2229) 6.8 G/DL ALBUMIN (test code = 2201) 4.1 G/DL CALC GLOBULIN (test code = 2240) 2.7 G/DL CALC A/G RATIO (test code = 2234) 1.5 RATIO BILIRUBIN, TOTAL (test code = 2207) 0.4 MG/DL ALKALINE PHOSPHATASE (test code = 2204) 62 U/L AST (test code = 2218) 16 U/L ALT (test code = 2219) 25 U/L LIPID [id number] 00:00:00* Test Item Value Reference Range Interpretation Comme nts CHOLESTEROL (test code = 2210) 153 MG/DL TRIGLYCERIDES (test code = 2232) 114 MG/DL HDL CHOLESTEROL (test code = 2220) 63 MG/DL CALC LDL CHOL (test code = 2237) 70 MG/DL RISK RATIO LDL/HDL (test cod e = 2238) 1.11 RATIO LIPID [id number] 00:00:00* Test Item Value Reference Range Interpretation Comme nts CHOLESTEROL (test code = 2210) 153 MG/DL TRIGLYCERIDES (test code = 2232) 114 MG/DL HDL CHOLESTEROL (test code = 2220) 63 MG/DL CALC LDL CHOL (test code = 2237) 70 MG/DL RISK RATIO LDL/HDL (test cod e = 2238) 1.11 RATIO CBC W/AUTO [id number] 00:00:00* Test Item Value Reference Range Interpretation Comme nts WBC (test code = 1001) 13.2 K/UL [...] = 1013) 0.3 % IMMATURE GRANULOCYTES (test code = 1036) 2.7 % NUCLEATED RBCS (test code = 1065) 0.0 /100WBC'S PLATELET COUNT (test code = 1015) 96 K/UL ABSOLUTE NEUTROPHILS (test c ode = 1066) 11.18 K/UL ABSOLUTE LYMPHOCYTES (test c ode = 1067) 0.82 K/UL ABSOLUTE MONOCYTES (test cod e = 1068) 0.79 K/UL ABSOLUTE EOSINOPHILS (test c ode = 1040) 0.01 K/UL ABSOLUTE BASOPHILS (test cod e = 1069) 0.04 K/UL ABS IMMATURE GRANULOCYTES (t est code = 1020) 0.36 K/UL ABS NUCLEATED RBCS (test cod e = 44671) 0.00 K/UL COMMENTS (test code = 1016) (NOTE) CBC W/AUTO [id number] 00:00:00* Test Item Value Reference Range Interpretation Comme nts WBC (test code = 1001) 13.2 K/UL [...] = 1013) 0.3 % IMMATURE GRANULOCYTES (test code = 1036) 2.7 % NUCLEATED RBCS (test code = 1065) 0.0 /100WBC'S PLATELET COUNT (test code = 1015) 96 K/UL ABSOLUTE NEUTROPHILS (test c ode = 1066) 11.18 K/UL ABSOLUTE LYMPHOCYTES (test c ode = 1067) 0.82 K/UL ABSOLUTE MONOCYTES (test cod e = 1068) 0.79 K/UL ABSOLUTE EOSINOPHILS (test c ode = 1040) 0.01 K/UL ABSOLUTE BASOPHILS (test cod e = 1069) 0.04 K/UL ABS IMMATURE GRANULOCYTES (t est code = 1020) 0.36 K/UL ABS NUCLEATED RBCS (test cod e = 98929) 0.00 K/UL COMMENTS (test code = 1016) (NOTE) CBC W/AUTO [id number] 00:00:00* Test Item Value Reference Range Interpretation Comme nts WBC (test code = 1001) 13.2 K/UL [...] = 1013) 0.3 % IMMATURE GRANULOCYTES (test code = 1036) 2.7 % NUCLEATED RBCS (test code = 1065) 0.0 /100WBC'S PLATELET COUNT (test code = 1015) 96 K/UL ABSOLUTE NEUTROPHILS (test c ode = 1066) 11.18 K/UL ABSOLUTE LYMPHOCYTES (test c ode = 1067) 0.82 K/UL ABSOLUTE MONOCYTES (test cod e = 1068) 0.79 K/UL ABSOLUTE EOSINOPHILS (test c ode = 1040) 0.01 K/UL ABSOLUTE BASOPHILS (test cod e = 1069) 0.04 K/UL ABS IMMATURE GRANULOCYTES (t est code = 1020) 0.36 K/UL ABS NUCLEATED RBCS (test cod e = 52406) 0.00 K/UL COMMENTS (test code = 1016) (NOTE) COMPREHENSIVE METABOLIC [id number] 00:00:00* Test Item Value Reference Range Interpretation Comme nts GLUCOSE (test code = 2217) 318 MG/DL BUN (test code = 2208) 21 MG/DL CREATININE (test code = 2214) 0.75 MG/DL eGFR (2020 CKD-EPI) (test code = 97707) 103 ML/MIN/1.73 CALC BUN/CREAT (test code = 2235) 28 RATIO SODIUM (test code = 2231) 133 MEQ/L POTASSIUM (test code = 2228) 4.3 MEQ/L CHLORIDE (test code = 2215) 99 MEQ/L CARBON DIOXIDE (test code = 2206) 20 MEQ/L CALCIUM (test code = 2209) 8.9 MG/DL PROTEIN, TOTAL (test code = 2229) 6.8 G/DL ALBUMIN (test code = 2201) 4.1 G/DL CALC GLOBULIN (test code = 2240) 2.7 G/DL CALC A/G RATIO (test code = 2234) 1.5 RATIO BILIRUBIN, TOTAL (test code = 2207) 0.4 MG/DL ALKALINE PHOSPHATASE (test code = 2204) 62 U/L AST (test code = 2218) 16 U/L ALT (test code = 2219) 25 U/L COMPREHENSIVE METABOLIC [id number] 00:00:00* Test Item Value Reference Range Interpretation Comme nts GLUCOSE (test code = 2217) 318 MG/DL BUN (test code = 2208) 21 MG/DL CREATININE (test code = 2214) 0.75 MG/DL eGFR (2020 CKD-EPI) (test code = 58499) 103 ML/MIN/1.73 CALC BUN/CREAT (test code = 2235) 28 RATIO SODIUM (test code = 223) 133 MEQ/L POTASSIUM (test code = 2228) 4.3 MEQ/L CHLORIDE (test code = 2215) 99 MEQ/L CARBON DIOXIDE (test code = 2206) 20 MEQ/L CALCIUM (test code = 2209) 8.9 MG/DL PROTEIN, TOTAL (test code = 222) 6.8 G/DL ALBUMIN (test code = 2201) 4.1 G/DL CALC GLOBULIN (test code = 2240) 2.7 G/DL CALC A/G RATIO (test code = 2234) 1.5 RATIO BILIRUBIN, TOTAL (test code = 220) 0.4 MG/DL ALKALINE PHOSPHATASE (test code = 2204) 62 U/L AST (test code = 2218) 16 U/L ALT (test code = 2219) 25 U/L LIPID [id number] 00:00:00* Test Item Value Reference Range Interpretation Comme nts CHOLESTEROL (test code = 2210) 153 MG/DL TRIGLYCERIDES (test code = 2232) 114 MG/DL HDL CHOLESTEROL (test code = 2220) 63 MG/DL CALC LDL CHOL (test code = 2237) 70 MG/DL RISK RATIO LDL/HDL (test cod e = 2238) 1.11 RATIO LIPID [id number] 00:00:00* Test Item Value Reference Range Interpretation Comme nts CHOLESTEROL (test code = 2210) 153 MG/DL TRIGLYCERIDES (test code = 2232) 114 MG/DL HDL CHOLESTEROL (test code = 2220) 63 MG/DL CALC LDL CHOL (test code = 2237) 70 MG/DL RISK RATIO LDL/HDL (test cod e = 2238) 1.11 RATIO CBC W/AUTO [id number] 00:00:00* Test Item Value Reference Range Interpretation Comme nts WBC (test code = 1001) 13.2 K/UL [...] = 1013) 0.3 % IMMATURE GRANULOCYTES (test code = 1036) 2.7 % NUCLEATED RBCS (test code = 1065) 0.0 /100WBC'S PLATELET COUNT (test code = 1015) 96 K/UL ABSOLUTE NEUTROPHILS (test c ode = 1066) 11.18 K/UL ABSOLUTE LYMPHOCYTES (test c ode = 1067) 0.82 K/UL ABSOLUTE MONOCYTES (test cod e = 1068) 0.79 K/UL ABSOLUTE EOSINOPHILS (test c ode = 1040) 0.01 K/UL ABSOLUTE BASOPHILS (test cod e = 1069) 0.04 K/UL ABS IMMATURE GRANULOCYTES (t est code = 1020) 0.36 K/UL ABS NUCLEATED RBCS (test cod e = 59523) 0.00 K/UL COMMENTS (test code = 1016) (NOTE) CBC W/AUTO [id number] 00:00:00* Test Item Value Reference Range Interpretation Comme nts WBC (test code = 1001) 13.2 K/UL [...] = 1013) 0.3 % IMMATURE GRANULOCYTES (test code = 1036) 2.7 % NUCLEATED RBCS (test code = 1065) 0.0 /100WBC'S PLATELET COUNT (test code = 1015) 96 K/UL ABSOLUTE NEUTROPHILS (test c ode = 1066) 11.18 K/UL ABSOLUTE LYMPHOCYTES (test c ode = 1067) 0.82 K/UL ABSOLUTE MONOCYTES (test cod e = 1068) 0.79 K/UL ABSOLUTE EOSINOPHILS (test c ode = 1040) 0.01 K/UL ABSOLUTE BASOPHILS (test cod e = 1069) 0.04 K/UL ABS IMMATURE GRANULOCYTES (t est code = 1020) 0.36 K/UL ABS NUCLEATED RBCS (test cod e = 26393) 0.00 K/UL COMMENTS (test code = 1016) (NOTE) CBC W/AUTO [id number] 00:00:00* Test Item Value Reference Range Interpretation Comme nts WBC (test code = 1001) 13.2 K/UL [...] = 1013) 0.3 % IMMATURE GRANULOCYTES (test code = 1036) 2.7 % NUCLEATED RBCS (test code = 1065) 0.0 /100WBC'S PLATELET COUNT (test code = 1015) 96 K/UL ABSOLUTE NEUTROPHILS (test c ode = 1066) 11.18 K/UL ABSOLUTE LYMPHOCYTES (test c ode = 1067) 0.82 K/UL ABSOLUTE MONOCYTES (test cod e = 1068) 0.79 K/UL ABSOLUTE EOSINOPHILS (test c ode = 1040) 0.01 K/UL ABSOLUTE BASOPHILS (test cod e = 1069) 0.04 K/UL ABS IMMATURE GRANULOCYTES (t est code = 1020) 0.36 K/UL ABS NUCLEATED RBCS (test cod e = 10727) 0.00 K/UL COMMENTS (test code = 1016) (NOTE) COMPREHENSIVE METABOLIC [id number] 00:00:00* Test Item Value Reference Range Interpretation Comme nts GLUCOSE (test code = 2217) 318 MG/DL BUN (test code = 2208) 21 MG/DL CREATININE (test code = 2214) 0.75 MG/DL eGFR (2020 CKD-EPI) (test code = 89839) 103 ML/MIN/1.73 CALC BUN/CREAT (test code = 2235) 28 RATIO SODIUM (test code = 2231) 133 MEQ/L POTASSIUM (test code = 2228) 4.3 MEQ/L CHLORIDE (test code = 2215) 99 MEQ/L CARBON DIOXIDE (test code = 2206) 20 MEQ/L CALCIUM (test code = 2209) 8.9 MG/DL PROTEIN, TOTAL (test code = 2229) 6.8 G/DL ALBUMIN (test code = 2201) 4.1 G/DL CALC GLOBULIN (test code = 2240) 2.7 G/DL CALC A/G RATIO (test code = 2234) 1.5 RATIO BILIRUBIN, TOTAL (test code = 2207) 0.4 MG/DL ALKALINE PHOSPHATASE (test code = 2204) 62 U/L AST (test code = 2218) 16 U/L ALT (test code = 2219) 25 U/L COMPREHENSIVE METABOLIC [id number] 00:00:00* Test Item Value Reference Range Interpretation Comme nts GLUCOSE (test code = 2217) 318 MG/DL BUN (test code = 2208) 21 MG/DL CREATININE (test code = 2214) 0.75 MG/DL eGFR (2020 CKD-EPI) (test code = 11385) 103 ML/MIN/1.73 CALC BUN/CREAT (test code = 2235) 28 RATIO SODIUM (test code = 2231) 133 MEQ/L POTASSIUM (test code = 2228) 4.3 MEQ/L CHLORIDE (test code = 2215) 99 MEQ/L CARBON DIOXIDE (test code = 2206) 20 MEQ/L CALCIUM (test code = 2209) 8.9 MG/DL PROTEIN, TOTAL (test code = 2229) 6.8 G/DL ALBUMIN (test code = 2201) 4.1 G/DL CALC GLOBULIN (test code = 2240) 2.7 G/DL CALC A/G RATIO (test code = 2234) 1.5 RATIO BILIRUBIN, TOTAL (test code = 2207) 0.4 MG/DL ALKALINE PHOSPHATASE (test code = 2204) 62 U/L AST (test code = 2218) 16 U/L ALT (test code = 2219) 25 U/L LIPID [id number] 00:00:00* Test Item Value Reference Range Interpretation Comme nts CHOLESTEROL (test code = 2210) 153 MG/DL TRIGLYCERIDES (test code = 2232) 114 MG/DL HDL CHOLESTEROL (test code = 2220) 63 MG/DL CALC LDL CHOL (test code = 2237) 70 MG/DL RISK RATIO LDL/HDL (test cod e = 2238) 1.11 RATIO LIPID [id number] 00:00:00* Test Item Value Reference Range Interpretation Comme nts CHOLESTEROL (test code = 2210) 153 MG/DL TRIGLYCERIDES (test code = 2232) 114 MG/DL HDL CHOLESTEROL (test code = 2220) 63 MG/DL CALC LDL CHOL (test code = 2237) 70 MG/DL RISK RATIO LDL/HDL (test cod e = 2238) 1.11 RATIO CBC W/AUTO [id number] 00:00:00* Test Item Value Reference Range Interpretation Comme nts WBC (test code = 1001) 13.2 K/UL [...] = 1013) 0.3 % IMMATURE GRANULOCYTES (test code = 1036) 2.7 % NUCLEATED RBCS (test code = 1065) 0.0 /100WBC'S PLATELET COUNT (test code = 1015) 96 K/UL ABSOLUTE NEUTROPHILS (test c ode = 1066) 11.18 K/UL ABSOLUTE LYMPHOCYTES (test c ode = 1067) 0.82 K/UL ABSOLUTE MONOCYTES (test cod e = 1068) 0.79 K/UL ABSOLUTE EOSINOPHILS (test c ode = 1040) 0.01 K/UL ABSOLUTE BASOPHILS (test cod e = 1069) 0.04 K/UL ABS IMMATURE GRANULOCYTES (t est code = 1020) 0.36 K/UL ABS NUCLEATED RBCS (test cod e = 62509) 0.00 K/UL COMMENTS (test code = 1016) (NOTE) CBC W/AUTO [id number] 00:00:00* Test Item Value Reference Range Interpretation Comme nts WBC (test code = 1001) 13.2 K/UL [...] = 1013) 0.3 % IMMATURE GRANULOCYTES (test code = 1036) 2.7 % NUCLEATED RBCS (test code = 1065) 0.0 /100WBC'S PLATELET COUNT (test code = 1015) 96 K/UL ABSOLUTE NEUTROPHILS (test c ode = 1066) 11.18 K/UL ABSOLUTE LYMPHOCYTES (test c ode = 1067) 0.82 K/UL ABSOLUTE MONOCYTES (test cod e = 1068) 0.79 K/UL ABSOLUTE EOSINOPHILS (test c ode = 1040) 0.01 K/UL ABSOLUTE BASOPHILS (test cod e = 1069) 0.04 K/UL ABS IMMATURE GRANULOCYTES (t est code = 1020) 0.36 K/UL ABS NUCLEATED RBCS (test cod e = 68282) 0.00 K/UL COMMENTS (test code = 1016) (NOTE) CBC W/AUTO [id number] 00:00:00* Test Item Value Reference Range Interpretation Comme nts WBC (test code = 1001) 13.2 K/UL [...] = 1013) 0.3 % IMMATURE GRANULOCYTES (test code = 1036) 2.7 % NUCLEATED RBCS (test code = 1065) 0.0 /100WBC'S PLATELET COUNT (test code = 1015) 96 K/UL ABSOLUTE NEUTROPHILS (test c ode = 1066) 11.18 K/UL ABSOLUTE LYMPHOCYTES (test c ode = 1067) 0.82 K/UL ABSOLUTE MONOCYTES (test cod e = 1068) 0.79 K/UL ABSOLUTE EOSINOPHILS (test c ode = 1040) 0.01 K/UL ABSOLUTE BASOPHILS (test cod e = 1069) 0.04 K/UL ABS IMMATURE GRANULOCYTES (t est code = 1020) 0.36 K/UL ABS NUCLEATED RBCS (test cod e = 81056) 0.00 K/UL COMMENTS (test code = 1016) (NOTE) COMPREHENSIVE METABOLIC [id number] 00:00:00* Test Item Value Reference Range Interpretation Comme nts GLUCOSE (test code = 2217) 318 MG/DL BUN (test code = 2208) 21 MG/DL CREATININE (test code = 2214) 0.75 MG/DL eGFR (2020 CKD-EPI) (test code = 13661) 103 ML/MIN/1.73 CALC BUN/CREAT (test code = 2235) 28 RATIO SODIUM (test code = 2231) 133 MEQ/L POTASSIUM (test code = 2228) 4.3 MEQ/L CHLORIDE (test code = 2215) 99 MEQ/L CARBON DIOXIDE (test code = 2206) 20 MEQ/L CALCIUM (test code = 2209) 8.9 MG/DL PROTEIN, TOTAL (test code = 2229) 6.8 G/DL ALBUMIN (test code = 2201) 4.1 G/DL CALC GLOBULIN (test code = 2240) 2.7 G/DL CALC A/G RATIO (test code = 2234) 1.5 RATIO BILIRUBIN, TOTAL (test code = 2207) 0.4 MG/DL ALKALINE PHOSPHATASE (test code = 2204) 62 U/L AST (test code = 2218) 16 U/L ALT (test code = 2219) 25 U/L COMPREHENSIVE METABOLIC [id number] 00:00:00* Test Item Value Reference Range Interpretation Comme nts GLUCOSE (test code = 2217) 318 MG/DL BUN (test code = 2208) 21 MG/DL CREATININE (test code = 2214) 0.75 MG/DL eGFR (2020 CKD-EPI) (test code = 30959) 103 ML/MIN/1.73 CALC BUN/CREAT (test code = 2235) 28 RATIO SODIUM (test code = 2231) 133 MEQ/L POTASSIUM (test code = 2228) 4.3 MEQ/L CHLORIDE (test code = 2215) 99 MEQ/L CARBON DIOXIDE (test code = 2206) 20 MEQ/L CALCIUM (test code = 2209) 8.9 MG/DL PROTEIN, TOTAL (test code = 2229) 6.8 G/DL ALBUMIN (test code = 2201) 4.1 G/DL CALC GLOBULIN (test code = 2240) 2.7 G/DL CALC A/G RATIO (test code = 2234) 1.5 RATIO BILIRUBIN, TOTAL (test code = 2207) 0.4 MG/DL ALKALINE PHOSPHATASE (test code = 2204) 62 U/L AST (test code = 2218) 16 U/L ALT (test code = 2219) 25 U/L LIPID [id number] 00:00:00* Test Item Value Reference Range Interpretation Comme nts CHOLESTEROL (test code = 2210) 153 MG/DL TRIGLYCERIDES (test code = 2232) 114 MG/DL HDL CHOLESTEROL (test code = 2220) 63 MG/DL CALC LDL CHOL (test code = 2237) 70 MG/DL RISK RATIO LDL/HDL (test cod e = 2238) 1.11 RATIO LIPID [id number] 00:00:00* Test Item Value Reference Range Interpretation Comme nts CHOLESTEROL (test code = 2210) 153 MG/DL TRIGLYCERIDES (test code = 2232) 114 MG/DL HDL CHOLESTEROL (test code = 2220) 63 MG/DL CALC LDL CHOL (test code = 2237) 70 MG/DL RISK RATIO LDL/HDL (test cod e = 2238) 1.11 RATIO CBC W/AUTO [id number] 00:00:00* Test Item Value Reference Range Interpretation Comme nts WBC (test code = 1001) 13.2 K/UL [...] = 1013) 0.3 % IMMATURE GRANULOCYTES (test code = 1036) 2.7 % NUCLEATED RBCS (test code = 1065) 0.0 /100WBC'S PLATELET COUNT (test code = 1015) 96 K/UL ABSOLUTE NEUTROPHILS (test c ode = 1066) 11.18 K/UL ABSOLUTE LYMPHOCYTES (test c ode = 1067) 0.82 K/UL ABSOLUTE MONOCYTES (test cod e = 1068) 0.79 K/UL ABSOLUTE EOSINOPHILS (test c ode = 1040) 0.01 K/UL ABSOLUTE BASOPHILS (test cod e = 1069) 0.04 K/UL ABS IMMATURE GRANULOCYTES (t est code = 1020) 0.36 K/UL ABS NUCLEATED RBCS (test cod e = 34625) 0.00 K/UL COMMENTS (test code = 1016) (NOTE) CBC W/AUTO [id number] 00:00:00* Test Item Value Reference Range Interpretation Comme nts WBC (test code = 1001) 13.2 K/UL [...] = 1013) 0.3 % IMMATURE GRANULOCYTES (test code = 1036) 2.7 % NUCLEATED RBCS (test code = 1065) 0.0 /100WBC'S PLATELET COUNT (test code = 1015) 96 K/UL ABSOLUTE NEUTROPHILS (test c ode = 1066) 11.18 K/UL ABSOLUTE LYMPHOCYTES (test c ode = 1067) 0.82 K/UL ABSOLUTE MONOCYTES (test cod e = 1068) 0.79 K/UL ABSOLUTE EOSINOPHILS (test c ode = 1040) 0.01 K/UL ABSOLUTE BASOPHILS (test cod e = 1069) 0.04 K/UL ABS IMMATURE GRANULOCYTES (t est code = 1020) 0.36 K/UL ABS NUCLEATED RBCS (test cod e = 74587) 0.00 K/UL COMMENTS (test code = 1016) (NOTE) CBC W/AUTO [id number] 00:00:00* Test Item Value Reference Range Interpretation Comme nts WBC (test code = 1001) 13.2 K/UL [...] = 1013) 0.3 % IMMATURE GRANULOCYTES (test code = 1036) 2.7 % NUCLEATED RBCS (test code = 1065) 0.0 /100WBC'S PLATELET COUNT (test code = 1015) 96 K/UL ABSOLUTE NEUTROPHILS (test c ode = 1066) 11.18 K/UL ABSOLUTE LYMPHOCYTES (test c ode = 1067) 0.82 K/UL ABSOLUTE MONOCYTES (test cod e = 1068) 0.79 K/UL ABSOLUTE EOSINOPHILS (test c ode = 1040) 0.01 K/UL ABSOLUTE BASOPHILS (test cod e = 1069) 0.04 K/UL ABS IMMATURE GRANULOCYTES (t est code = 1020) 0.36 K/UL ABS NUCLEATED RBCS (test cod e = 75399) 0.00 K/UL COMMENTS (test code = 1016) (NOTE) LIPID [id number] 06:14:57* Test Item Value Reference Range Interpretation Comme nts CHOLESTEROL (test code = 2210) 170 MG/DL <200 TRIGLYCERIDES (test code = 2232) 272 MG/DL <150 H HDL CHOLESTEROL (test code = 2220) 35 MG/DL >39 L CALC LDL CHOL (test code = 2237) 96 MG/DL <100 NOTE: CALCULATED LDL IS BASED ON LEONOR-JAUREGUI METHOD WHICHINCLUDES ADJUSTABLE TRIGLYCERIDE:VLDL CHOLESTEROL RATIO.THIS FACTOR VARIES BY MEASURED TRIGLYCERIDE AND NON-HDLCHOLESTEROL CONCENTRATIONS WITH INCREASED CALCULATED LDL SEENIN HIGHER TRIGLYCERIDE OR LOWER NON-HDL SPECIMENS. FOR MOREINFORMATION, SEE CLIENT ANNOUNCEMENT AT [email or web address] /CalcLDL-C RISK RATIO LDL/HDL (test code = 2238) 2.74 RATIO <3.55 COMPREHENSIVE METABOLIC [id number] 06:14:57* Test Item Value Reference Range Interpretation Comme nts GLUCOSE (test code = 2217) 262 MG/DL 70-99 H BUN (test code = 2208) 12 MG/DL 8-23 CREATININE (test code = 2214) 0.76 MG/DL 0.80-1.40 L eGFR (2020 CKD-EPI) (test code = 06077) 103 ML/MIN/1.73 >60 CALC BUN/CREAT (test code = 2235) 16 RATIO 6-28 SODIUM (test code = 2231) 138 MEQ/L 133-146 POTASSIUM (test code = 2228) 4.1 MEQ/L 3.5-5.4 CHLORIDE (test code = 2215) 102 MEQ/L 95-107 CARBON DIOXIDE (test code = 2206) 21 MEQ/L 19-31 CALCIUM (test code = 2208) 9.3 MG/DL 8.5-10.5 PROTEIN, TOTAL (test code = 2229) 7.5 G/DL 6.1-8.3 ALBUMIN (test code = 2201) 4.3 G/DL 3.5-5.2 CALC GLOBULIN (test code = 2240) 3.2 G/DL 1.9-3.7 CALC A/G RATIO (test code = 2234) 1.3 RATIO 1.0-2.6 BILIRUBIN, TOTAL (test code = 7) 0.2 MG/DL See_Comment [Automated me ssage] The system which generated this result transmitted reference range: <=1.2. The reference range was not used to interpret this result as normal/abnormal. ALKALINE PHOSPHATASE (test code = 2203) 76 U/L 40-123 AST (test code = 8) 20 U/L 9-50 ALT (test code = 2218) 23 U/L 5-50 UNLESS OTHERWISE INDICATED, ALL TESTING PERFORMED [facility] [address] [place] [address] [employer]UM[employer]: SHAMAR ENRIQUE M.D. CLIA NUMBER [id number] [facility] [place]. [id number] HEMOGLOBIN [id number] 05:27:45* Test Item Value Reference Range Interpretation Comme [facility] HEMOGLOBIN A1c (test code = 27261) 8.1 % 4.2-5.6 H [employer] GUIDELINES FOR HGB A1C: PREDIABETES/INCREASED RISK . . . . . . . 5.7-6.4% DIAGNOSIS OF DIABETES . . . . . . . . . >=6.5% WITH CONFIRMATION OR APPROPRIATE SYMPTOMS NOTE: ASSAY MAY BE AFFECTED BY HEMOGLOBINOPATHIES (SICKLE CELL ANEMIA, S-C DISEASE, OTHERS) OR ARTIFICIALLY LOWERED BY DECREASED RED CELL SURVIVAL (HEMOLYTIC ANEMIAS, BLOOD LOSS, ETC.). CONSIDER ALTERNATE TESTING OR LABORATORY CONSULTATION. HEMOGLOBIN [id number] 00:00:00* Test Item Value Reference Range Interpretation Comme nts HEMOGLOBIN A1c (test code = 10424) 8.1 % HEMOGLOBIN [id number] 00:00:00* Test Item Value Reference Range Interpretation Comme nts HEMOGLOBIN A1c (test code = 82868) 8.1 % HEMOGLOBIN [id number] 00:00:00* Test Item Value Reference Range Interpretation Comme nts HEMOGLOBIN A1c (test code = 59441) 8.1 % LIPID [id number] 00:00:00* Test Item Value Reference Range Interpretation Comme nts CHOLESTEROL (test code = 2210) 170 MG/DL TRIGLYCERIDES (test code = 2232) 272 MG/DL HDL CHOLESTEROL (test code = 2220) 35 MG/DL CALC LDL CHOL (test code = 2237) 96 MG/DL RISK RATIO LDL/HDL (test cod e = 2238) 2.74 RATIO LIPID [id number] 00:00:00* Test Item Value Reference Range Interpretation Comme nts CHOLESTEROL (test code = 2210) 170 MG/DL TRIGLYCERIDES (test code = 2232) 272 MG/DL HDL CHOLESTEROL (test code = 2220) 35 MG/DL CALC LDL CHOL (test code = 2237) 96 MG/DL RISK RATIO LDL/HDL (test cod e = 2238) 2.74 RATIO COMPREHENSIVE METABOLIC [id number] 00:00:00* Test Item Value Reference Range Interpretation Comme nts GLUCOSE (test code = 2217) 262 MG/DL BUN (test code = 2208) 12 MG/DL CREATININE (test code = 2214) 0.76 MG/DL eGFR (2020 CKD-EPI) (test code = 69348) 103 ML/MIN/1.73 CALC BUN/CREAT (test code = 2235) 16 RATIO SODIUM (test code = 2231) 138 MEQ/L POTASSIUM (test code = 2228) 4.1 MEQ/L CHLORIDE (test code = 2215) 102 MEQ/L CARBON DIOXIDE (test code = 2206) 21 MEQ/L CALCIUM (test code = 2209) 9.3 MG/DL PROTEIN, TOTAL (test code = 2229) 7.5 G/DL ALBUMIN (test code = 2201) 4.3 G/DL CALC GLOBULIN (test code = 2240) 3.2 G/DL CALC A/G RATIO (test code = 2234) 1.3 RATIO BILIRUBIN, TOTAL (test code = 2207) 0.2 MG/DL ALKALINE PHOSPHATASE (test code = 2204) 76 U/L AST (test code = 2218) 20 U/L ALT (test code = 2219) 23 U/L COMPREHENSIVE METABOLIC [id number] 00:00:00* Test Item Value Reference Range Interpretation Comme nts GLUCOSE (test code = 2217) 262 MG/DL BUN (test code = 2208) 12 MG/DL CREATININE (test code = 2214) 0.76 MG/DL eGFR (2020 CKD-EPI) (test code = 82748) 103 ML/MIN/1.73 CALC BUN/CREAT (test code = 2235) 16 RATIO SODIUM (test code = 2231) 138 MEQ/L POTASSIUM (test code = 2228) 4.1 MEQ/L CHLORIDE (test code = 2215) 102 MEQ/L CARBON DIOXIDE (test code = 2206) 21 MEQ/L CALCIUM (test code = 2209) 9.3 MG/DL PROTEIN, TOTAL (test code = 2229) 7.5 G/DL ALBUMIN (test code = 2201) 4.3 G/DL CALC GLOBULIN (test code = 2240) 3.2 G/DL CALC A/G RATIO (test code = 2234) 1.3 RATIO BILIRUBIN, TOTAL (test code = 2207) 0.2 MG/DL ALKALINE PHOSPHATASE (test code = 2204) 76 U/L AST (test code = 2218) 20 U/L ALT (test code = 2219) 23 U/L HEMOGLOBIN [id number] 00:00:00* Test Item Value Reference Range Interpretation Comme nts HEMOGLOBIN A1c (test code = 74424) 8.1 % HEMOGLOBIN [id number] 00:00:00* Test Item Value Reference Range Interpretation Comme nts HEMOGLOBIN A1c (test code = 86846) 8.1 % HEMOGLOBIN [id number] 00:00:00* Test Item Value Reference Range Interpretation Comme nts HEMOGLOBIN A1c (test code = 61945) 8.1 % LIPID [id number] 00:00:00* Test Item Value Reference Range Interpretation Comme nts CHOLESTEROL (test code = 2210) 170 MG/DL TRIGLYCERIDES (test code = 2232) 272 MG/DL HDL CHOLESTEROL (test code = 2220) 35 MG/DL CALC LDL CHOL (test code = 2237) 96 MG/DL RISK RATIO LDL/HDL (test cod e = 2238) 2.74 RATIO LIPID [id number] 00:00:00* Test Item Value Reference Range Interpretation Comme nts CHOLESTEROL (test code = 2210) 170 MG/DL TRIGLYCERIDES (test code = 2232) 272 MG/DL HDL CHOLESTEROL (test code = 2220) 35 MG/DL CALC LDL CHOL (test code = 2237) 96 MG/DL RISK RATIO LDL/HDL (test cod e = 2238) 2.74 RATIO COMPREHENSIVE METABOLIC [id number] 00:00:00* Test Item Value Reference Range Interpretation Comme nts GLUCOSE (test code = 2217) 262 MG/DL BUN (test code = 2208) 12 MG/DL CREATININE (test code = 2214) 0.76 MG/DL eGFR (2020 CKD-EPI) (test code = 16610) 103 ML/MIN/1.73 CALC BUN/CREAT (test code = 2235) 16 RATIO SODIUM (test code = 2231) 138 MEQ/L POTASSIUM (test code = 2228) 4.1 MEQ/L CHLORIDE (test code = 2215) 102 MEQ/L CARBON DIOXIDE (test code = 2206) 21 MEQ/L CALCIUM (test code = 2209) 9.3 MG/DL PROTEIN, TOTAL (test code = 2229) 7.5 G/DL ALBUMIN (test code = 2201) 4.3 G/DL CALC GLOBULIN (test code = 2240) 3.2 G/DL CALC A/G RATIO (test code = 2234) 1.3 RATIO BILIRUBIN, TOTAL (test code = 2207) 0.2 MG/DL ALKALINE PHOSPHATASE (test code = 2204) 76 U/L AST (test code = 2218) 20 U/L ALT (test code = 2219) 23 U/L COMPREHENSIVE METABOLIC [id number] 00:00:00* Test Item Value Reference Range Interpretation Comme nts GLUCOSE (test code = 2217) 262 MG/DL BUN (test code = 2208) 12 MG/DL CREATININE (test code = 2214) 0.76 MG/DL eGFR (2020 CKD-EPI) (test code = 91196) 103 ML/MIN/1.73 CALC BUN/CREAT (test code = 2235) 16 RATIO SODIUM (test code = 2231) 138 MEQ/L POTASSIUM (test code = 2228) 4.1 MEQ/L CHLORIDE (test code = 2215) 102 MEQ/L CARBON DIOXIDE (test code = 2206) 21 MEQ/L CALCIUM (test code = 2209) 9.3 MG/DL PROTEIN, TOTAL (test code = 2229) 7.5 G/DL ALBUMIN (test code = 2201) 4.3 G/DL CALC GLOBULIN (test code = 2240) 3.2 G/DL CALC A/G RATIO (test code = 2234) 1.3 RATIO BILIRUBIN, TOTAL (test code = 2207) 0.2 MG/DL ALKALINE PHOSPHATASE (test code = 2204) 76 U/L AST (test code = 2218) 20 U/L ALT (test code = 2219) 23 U/L HEMOGLOBIN [id number] 00:00:00* Test Item Value Reference Range Interpretation Comme nts HEMOGLOBIN A1c (test code = 32741) 8.1 % HEMOGLOBIN [id number] 00:00:00* Test Item Value Reference Range Interpretation Comme nts HEMOGLOBIN A1c (test code = 06546) 8.1 % LIPID [id number] 00:00:00* Test Item Value Reference Range Interpretation Comme nts CHOLESTEROL (test code = 2210) 170 MG/DL TRIGLYCERIDES (test code = 2232) 272 MG/DL HDL CHOLESTEROL (test code = 2220) 35 MG/DL CALC LDL CHOL (test code = 2237) 96 MG/DL RISK RATIO LDL/HDL (test cod e = 2238) 2.74 RATIO HEMOGLOBIN [id number] 00:00:00* Test Item Value Reference Range Interpretation Comme nts HEMOGLOBIN A1c (test code = 82818) 8.1 % HEMOGLOBIN [id number] 00:00:00* Test Item Value Reference Range Interpretation Comme nts HEMOGLOBIN A1c (test code = 64114) 8.1 % HEMOGLOBIN [id number] 00:00:00* Test Item Value Reference Range Interpretation Comme nts HEMOGLOBIN A1c (test code = 83274) 8.1 % COMPREHENSIVE METABOLIC [id number] 00:00:00* Test Item Value Reference Range Interpretation Comme nts GLUCOSE (test code = 2217) 262 MG/DL BUN (test code = 2208) 12 MG/DL CREATININE (test code = 2214) 0.76 MG/DL eGFR (2020 CKD-EPI) (test code = 57116) 103 ML/MIN/1.73 CALC BUN/CREAT (test code = 2235) 16 RATIO SODIUM (test code = 2231) 138 MEQ/L POTASSIUM (test code = 2228) 4.1 MEQ/L CHLORIDE (test code = 2215) 102 MEQ/L CARBON DIOXIDE (test code = 2206) 21 MEQ/L CALCIUM (test code = 2209) 9.3 MG/DL PROTEIN, TOTAL (test code = 2229) 7.5 G/DL ALBUMIN (test code = 2201) 4.3 G/DL CALC GLOBULIN (test code = 2240) 3.2 G/DL CALC A/G RATIO (test code = 2234) 1.3 RATIO BILIRUBIN, TOTAL (test code = 2207) 0.2 MG/DL ALKALINE PHOSPHATASE (test code = 2204) 76 U/L AST (test code = 2218) 20 U/L ALT (test code = 2219) 23 U/L LIPID [id number] 00:00:00* Test Item Value Reference Range Interpretation Comme nts CHOLESTEROL (test code = 2210) 170 MG/DL TRIGLYCERIDES (test code = 2232) 272 MG/DL HDL CHOLESTEROL (test code = 2220) 35 MG/DL CALC LDL CHOL (test code = 2237) 96 MG/DL RISK RATIO LDL/HDL (test cod e = 2238) 2.74 RATIO LIPID [id number] 00:00:00* Test Item Value Reference Range Interpretation Comme nts CHOLESTEROL (test code = 2210) 170 MG/DL TRIGLYCERIDES (test code = 2232) 272 MG/DL HDL CHOLESTEROL (test code = 2220) 35 MG/DL CALC LDL CHOL (test code = 2237) 96 MG/DL RISK RATIO LDL/HDL (test cod e = 2238) 2.74 RATIO COMPREHENSIVE METABOLIC [id number] 00:00:00* Test Item Value Reference Range Interpretation Comme nts GLUCOSE (test code = 2217) 262 MG/DL BUN (test code = 2208) 12 MG/DL CREATININE (test code = 2214) 0.76 MG/DL eGFR (2020 CKD-EPI) (test code = 68007) 103 ML/MIN/1.73 CALC BUN/CREAT (test code = 2235) 16 RATIO SODIUM (test code = 2231) 138 MEQ/L POTASSIUM (test code = 2228) 4.1 MEQ/L CHLORIDE (test code = 2215) 102 MEQ/L CARBON DIOXIDE (test code = 2206) 21 MEQ/L CALCIUM (test code = 2209) 9.3 MG/DL PROTEIN, TOTAL (test code = 2229) 7.5 G/DL ALBUMIN (test code = 2201) 4.3 G/DL CALC GLOBULIN (test code = 2240) 3.2 G/DL CALC A/G RATIO (test code = 2234) 1.3 RATIO BILIRUBIN, TOTAL (test code = 2207) 0.2 MG/DL ALKALINE PHOSPHATASE (test code = 2204) 76 U/L AST (test code = 2218) 20 U/L ALT (test code = 2219) 23 U/L COMPREHENSIVE METABOLIC [id number] 00:00:00* Test Item Value Reference Range Interpretation Comme nts GLUCOSE (test code = 2217) 262 MG/DL BUN (test code = 2208) 12 MG/DL CREATININE (test code = 2214) 0.76 MG/DL eGFR (2020 CKD-EPI) (test code = 49936) 103 ML/MIN/1.73 CALC BUN/CREAT (test code = 2235) 16 RATIO SODIUM (test code = 2231) 138 MEQ/L POTASSIUM (test code = 2228) 4.1 MEQ/L CHLORIDE (test code = 2215) 102 MEQ/L CARBON DIOXIDE (test code = 2206) 21 MEQ/L CALCIUM (test code = 2209) 9.3 MG/DL PROTEIN, TOTAL (test code = 2229) 7.5 G/DL ALBUMIN (test code = 2201) 4.3 G/DL CALC GLOBULIN (test code = 2240) 3.2 G/DL CALC A/G RATIO (test code = 2234) 1.3 RATIO BILIRUBIN, TOTAL (test code = 2207) 0.2 MG/DL ALKALINE PHOSPHATASE (test code = 2204) 76 U/L AST (test code = 2218) 20 U/L ALT (test code = 2219) 23 U/L HEMOGLOBIN [id number] 00:00:00* Test Item Value Reference Range Interpretation Comme [facility] HEMOGLOBIN A1c (test code = 92917) 8.1 % HEMOGLOBIN [id number] 00:00:00* Test Item Value Reference Range Interpretation Comme [facility] HEMOGLOBIN A1c (test code = 38860) 8.1 % HEMOGLOBIN [id number] 00:00:00* Test Item Value Reference Range Interpretation Comme nts HEMOGLOBIN A1c (test code = 15091) 8.1 % LIPID [id number] 00:00:00* Test Item Value Reference Range Interpretation Comme nts CHOLESTEROL (test code = 2210) 170 MG/DL TRIGLYCERIDES (test code = 2232) 272 MG/DL HDL CHOLESTEROL (test code = 2220) 35 MG/DL CALC LDL CHOL (test code = 2237) 96 MG/DL RISK RATIO LDL/HDL (test cod e = 2238) 2.74 RATIO LIPID [id number] 00:00:00* Test Item Value Reference Range Interpretation Comme nts CHOLESTEROL (test code = 2210) 170 MG/DL TRIGLYCERIDES (test code = 2232) 272 MG/DL HDL CHOLESTEROL (test code = 2220) 35 MG/DL CALC LDL CHOL (test code = 2237) 96 MG/DL RISK RATIO LDL/HDL (test cod e = 2238) 2.74 RATIO COMPREHENSIVE METABOLIC [id number] 00:00:00* Test Item Value Reference Range Interpretation Comme nts GLUCOSE (test code = 2217) 262 MG/DL BUN (test code = 2208) 12 MG/DL CREATININE (test code = 2214) 0.76 MG/DL eGFR (2020 CKD-EPI) (test code = 98379) 103 ML/MIN/1.73 CALC BUN/CREAT (test code = 2235) 16 RATIO SODIUM (test code = 2231) 138 MEQ/L POTASSIUM (test code = 2228) 4.1 MEQ/L CHLORIDE (test code = 2215) 102 MEQ/L CARBON DIOXIDE (test code = 2206) 21 MEQ/L CALCIUM (test code = 2209) 9.3 MG/DL PROTEIN, TOTAL (test code = 2229) 7.5 G/DL ALBUMIN (test code = 2201) 4.3 G/DL CALC GLOBULIN (test code = 2240) 3.2 G/DL CALC A/G RATIO (test code = 2234) 1.3 RATIO BILIRUBIN, TOTAL (test code = 2207) 0.2 MG/DL ALKALINE PHOSPHATASE (test code = 2204) 76 U/L AST (test code = 2218) 20 U/L ALT (test code = 2219) 23 U/L COMPREHENSIVE METABOLIC [id number] 00:00:00* Test Item Value Reference Range Interpretation Comme nts GLUCOSE (test code = 2217) 262 MG/DL BUN (test code = 2208) 12 MG/DL CREATININE (test code = 2214) 0.76 MG/DL eGFR (2020 CKD-EPI) (test code = 39423) 103 ML/MIN/1.73 CALC BUN/CREAT (test code = 2235) 16 RATIO SODIUM (test code = 2231) 138 MEQ/L POTASSIUM (test code = 2228) 4.1 MEQ/L CHLORIDE (test code = 2215) 102 MEQ/L CARBON DIOXIDE (test code = 2206) 21 MEQ/L CALCIUM (test code = 2209) 9.3 MG/DL PROTEIN, TOTAL (test code = 222) 7.5 G/DL ALBUMIN (test code = 2201) 4.3 G/DL CALC GLOBULIN (test code = 2240) 3.2 G/DL CALC A/G RATIO (test code = 2234) 1.3 RATIO BILIRUBIN, TOTAL (test code = 2206) 0.2 MG/DL ALKALINE PHOSPHATASE (test code = 4) 76 U/L AST (test code = 2218) 20 U/L ALT (test code = 2219) 23 U/L HEMOGLOBIN [id number] 00:00:00* Test Item Value Reference Range Interpretation Comme nts HEMOGLOBIN A1c (test code = 42452) 8.1 % HEMOGLOBIN [id number] 00:00:00* Test Item Value Reference Range Interpretation Comme nts HEMOGLOBIN A1c (test code = 93759) 8.1 % HEMOGLOBIN [id number] 00:00:00* Test Item Value Reference Range Interpretation Comme nts HEMOGLOBIN A1c (test code = 78136) 8.1 % LIPID [id number] 00:00:00* Test Item Value Reference Range Interpretation Comme nts CHOLESTEROL (test code = 2210) 170 MG/DL TRIGLYCERIDES (test code = 2232) 272 MG/DL HDL CHOLESTEROL (test code = 2220) 35 MG/DL CALC LDL CHOL (test code = 2237) 96 MG/DL RISK RATIO LDL/HDL (test cod e = 2238) 2.74 RATIO LIPID [id number] 00:00:00* Test Item Value Reference Range Interpretation Comme nts CHOLESTEROL (test code = 2210) 170 MG/DL TRIGLYCERIDES (test code = 2232) 272 MG/DL HDL CHOLESTEROL (test code = 2220) 35 MG/DL CALC LDL CHOL (test code = 2237) 96 MG/DL RISK RATIO LDL/HDL (test cod e = 2238) 2.74 RATIO COMPREHENSIVE METABOLIC [id number] 00:00:00* Test Item Value Reference Range Interpretation Comme nts GLUCOSE (test code = 2217) 262 MG/DL BUN (test code = 2208) 12 MG/DL CREATININE (test code = 2214) 0.76 MG/DL eGFR (2020 CKD-EPI) (test code = 28974) 103 ML/MIN/1.73 CALC BUN/CREAT (test code = 2235) 16 RATIO SODIUM (test code = 2231) 138 MEQ/L POTASSIUM (test code = 2228) 4.1 MEQ/L CHLORIDE (test code = 2215) 102 MEQ/L CARBON DIOXIDE (test code = 2206) 21 MEQ/L CALCIUM (test code = 2209) 9.3 MG/DL PROTEIN, TOTAL (test code = 2229) 7.5 G/DL ALBUMIN (test code = 2201) 4.3 G/DL CALC GLOBULIN (test code = 2240) 3.2 G/DL CALC A/G RATIO (test code = 2234) 1.3 RATIO BILIRUBIN, TOTAL (test code = 2207) 0.2 MG/DL ALKALINE PHOSPHATASE (test code = 2204) 76 U/L AST (test code = 2218) 20 U/L ALT (test code = 2219) 23 U/L COMPREHENSIVE METABOLIC [id number] 00:00:00* Test Item Value Reference Range Interpretation Comme nts GLUCOSE (test code = 2217) 262 MG/DL BUN (test code = 2208) 12 MG/DL CREATININE (test code = 2214) 0.76 MG/DL eGFR (2020 CKD-EPI) (test code = 46739) 103 ML/MIN/1.73 CALC BUN/CREAT (test code = 2235) 16 RATIO SODIUM (test code = 2231) 138 MEQ/L POTASSIUM (test code = 2228) 4.1 MEQ/L CHLORIDE (test code = 2215) 102 MEQ/L CARBON DIOXIDE (test code = 2206) 21 MEQ/L CALCIUM (test code = 2209) 9.3 MG/DL PROTEIN, TOTAL (test code = 2229) 7.5 G/DL ALBUMIN (test code = 2201) 4.3 G/DL CALC GLOBULIN (test code = 2240) 3.2 G/DL CALC A/G RATIO (test code = 2234) 1.3 RATIO BILIRUBIN, TOTAL (test code = 2207) 0.2 MG/DL ALKALINE PHOSPHATASE (test code = 2204) 76 U/L AST (test code = 2218) 20 U/L ALT (test code = 2219) 23 U/L HEMOGLOBIN [id number] 00:00:00* Test Item Value Reference Range Interpretation Comme nts HEMOGLOBIN A1c (test code = 86768) 8.1 % HEMOGLOBIN [id number] 00:00:00* Test Item Value Reference Range Interpretation Comme nts HEMOGLOBIN A1c (test code = 85530) 8.1 % HEMOGLOBIN [id number] 00:00:00* Test Item Value Reference Range Interpretation Comme nts HEMOGLOBIN A1c (test code = 71308) 8.1 % LIPID [id number] 00:00:00* Test Item Value Reference Range Interpretation Comme nts CHOLESTEROL (test code = 2210) 170 MG/DL TRIGLYCERIDES (test code = 2232) 272 MG/DL HDL CHOLESTEROL (test code = 2220) 35 MG/DL CALC LDL CHOL (test code = 2237) 96 MG/DL RISK RATIO LDL/HDL (test cod e = 2238) 2.74 RATIO LIPID [id number] 00:00:00* Test Item Value Reference Range Interpretation Comme nts CHOLESTEROL (test code = 2210) 170 MG/DL TRIGLYCERIDES (test code = 2232) 272 MG/DL HDL CHOLESTEROL (test code = 2220) 35 MG/DL CALC LDL CHOL (test code = 2237) 96 MG/DL RISK RATIO LDL/HDL (test cod e = 2238) 2.74 RATIO COMPREHENSIVE METABOLIC [id number] 00:00:00* Test Item Value Reference Range Interpretation Comme nts GLUCOSE (test code = 2217) 262 MG/DL BUN (test code = 2208) 12 MG/DL CREATININE (test code = 2214) 0.76 MG/DL eGFR (2020 CKD-EPI) (test code = 14847) 103 ML/MIN/1.73 CALC BUN/CREAT (test code = 2235) 16 RATIO SODIUM (test code = 2231) 138 MEQ/L POTASSIUM (test code = 2228) 4.1 MEQ/L CHLORIDE (test code = 2215) 102 MEQ/L CARBON DIOXIDE (test code = 2206) 21 MEQ/L CALCIUM (test code = 2209) 9.3 MG/DL PROTEIN, TOTAL (test code = 2229) 7.5 G/DL ALBUMIN (test code = 2201) 4.3 G/DL CALC GLOBULIN (test code = 2240) 3.2 G/DL CALC A/G RATIO (test code = 2234) 1.3 RATIO BILIRUBIN, TOTAL (test code = 2207) 0.2 MG/DL ALKALINE PHOSPHATASE (test code = 2204) 76 U/L AST (test code = 2218) 20 U/L ALT (test code = 2219) 23 U/L COMPREHENSIVE METABOLIC [id number] 00:00:00* Test Item Value Reference Range Interpretation Comme nts GLUCOSE (test code = 2217) 262 MG/DL BUN (test code = 2208) 12 MG/DL CREATININE (test code = 2214) 0.76 MG/DL eGFR (2020 CKD-EPI) (test code = 90429) 103 ML/MIN/1.73 CALC BUN/CREAT (test code = 2235) 16 RATIO SODIUM (test code = 2231) 138 MEQ/L POTASSIUM (test code = 2228) 4.1 MEQ/L CHLORIDE (test code = 2215) 102 MEQ/L CARBON DIOXIDE (test code = 2206) 21 MEQ/L CALCIUM (test code = 2209) 9.3 MG/DL PROTEIN, TOTAL (test code = 2229) 7.5 G/DL ALBUMIN (test code = 2201) 4.3 G/DL CALC GLOBULIN (test code = 2240) 3.2 G/DL CALC A/G RATIO (test code = 2234) 1.3 RATIO BILIRUBIN, TOTAL (test code = 2207) 0.2 MG/DL ALKALINE PHOSPHATASE (test code = 2204) 76 U/L AST (test code = 2218) 20 U/L ALT (test code = 2219) 23 U/L HEMOGLOBIN [id number] 00:00:00* Test Item Value Reference Range Interpretation Comme nts HEMOGLOBIN A1c (test code = 21161) 8.1 % HEMOGLOBIN [id number] 00:00:00* Test Item Value Reference Range Interpretation Comme nts HEMOGLOBIN A1c (test code = 33821) 8.1 % HEMOGLOBIN [id number] 00:00:00* Test Item Value Reference Range Interpretation Comme nts HEMOGLOBIN A1c (test code = 32254) 8.1 % LIPID [id number] 00:00:00* Test Item Value Reference Range Interpretation Comme nts CHOLESTEROL (test code = 2210) 170 MG/DL TRIGLYCERIDES (test code = 2232) 272 MG/DL HDL CHOLESTEROL (test code = 2220) 35 MG/DL CALC LDL CHOL (test code = 2237) 96 MG/DL RISK RATIO LDL/HDL (test cod e = 2238) 2.74 RATIO LIPID [id number] 00:00:00* Test Item Value Reference Range Interpretation Comme nts CHOLESTEROL (test code = 2210) 170 MG/DL TRIGLYCERIDES (test code = 2232) 272 MG/DL HDL CHOLESTEROL (test code = 2220) 35 MG/DL CALC LDL CHOL (test code = 2237) 96 MG/DL RISK RATIO LDL/HDL (test cod e = 2238) 2.74 RATIO COMPREHENSIVE METABOLIC [id number] 00:00:00* Test Item Value Reference Range Interpretation Comme nts GLUCOSE (test code = 2217) 262 MG/DL BUN (test code = 2208) 12 MG/DL CREATININE (test code = 2214) 0.76 MG/DL eGFR (2020 CKD-EPI) (test code = 71267) 103 ML/MIN/1.73 CALC BUN/CREAT (test code = 2235) 16 RATIO SODIUM (test code = 2231) 138 MEQ/L POTASSIUM (test code = 2228) 4.1 MEQ/L CHLORIDE (test code = 2215) 102 MEQ/L CARBON DIOXIDE (test code = 2206) 21 MEQ/L CALCIUM (test code = 2209) 9.3 MG/DL PROTEIN, TOTAL (test code = 2229) 7.5 G/DL ALBUMIN (test code = 2201) 4.3 G/DL CALC GLOBULIN (test code = 2240) 3.2 G/DL CALC A/G RATIO (test code = 2234) 1.3 RATIO BILIRUBIN, TOTAL (test code = 2207) 0.2 MG/DL ALKALINE PHOSPHATASE (test code = 2204) 76 U/L AST (test code = 2218) 20 U/L ALT (test code = 2219) 23 U/L COMPREHENSIVE METABOLIC [id number] 00:00:00* Test Item Value Reference Range Interpretation Comme nts GLUCOSE (test code = 2217) 262 MG/DL BUN (test code = 2208) 12 MG/DL CREATININE (test code = 2214) 0.76 MG/DL eGFR (2020 CKD-EPI) (test code = 66755) 103 ML/MIN/1.73 CALC BUN/CREAT (test code = 2235) 16 RATIO SODIUM (test code = 2231) 138 MEQ/L POTASSIUM (test code = 2228) 4.1 MEQ/L CHLORIDE (test code = 2215) 102 MEQ/L CARBON DIOXIDE (test code = 2206) 21 MEQ/L CALCIUM (test code = 2209) 9.3 MG/DL PROTEIN, TOTAL (test code = 2229) 7.5 G/DL ALBUMIN (test code = 2201) 4.3 G/DL CALC GLOBULIN (test code = 2240) 3.2 G/DL CALC A/G RATIO (test code = 2234) 1.3 RATIO BILIRUBIN, TOTAL (test code = 2207) 0.2 MG/DL ALKALINE PHOSPHATASE (test code = 2204) 76 U/L AST (test code = 2218) 20 U/L ALT (test code = 2219) 23 U/L HEMOGLOBIN [id number] 00:00:00* Test Item Value Reference Range Interpretation Comme nts HEMOGLOBIN A1c (test code = 54120) 8.1 % HEMOGLOBIN [id number] 00:00:00* Test Item Value Reference Range Interpretation Comme nts HEMOGLOBIN A1c (test code = 56812) 8.1 % HEMOGLOBIN [id number] 00:00:00* Test Item Value Reference Range Interpretation Comme nts HEMOGLOBIN A1c (test code = 92311) 8.1 % LIPID [id number] 00:00:00* Test Item Value Reference Range Interpretation Comme nts CHOLESTEROL (test code = 2210) 170 MG/DL TRIGLYCERIDES (test code = 2232) 272 MG/DL HDL CHOLESTEROL (test code = 2220) 35 MG/DL CALC LDL CHOL (test code = 2237) 96 MG/DL RISK RATIO LDL/HDL (test cod e = 2238) 2.74 RATIO LIPID [id number] 00:00:00* Test Item Value Reference Range Interpretation Comme nts CHOLESTEROL (test code = 2210) 170 MG/DL TRIGLYCERIDES (test code = 2232) 272 MG/DL HDL CHOLESTEROL (test code = 2220) 35 MG/DL CALC LDL CHOL (test code = 2237) 96 MG/DL RISK RATIO LDL/HDL (test cod e = 2238) 2.74 RATIO COMPREHENSIVE METABOLIC [id number] 00:00:00* Test Item Value Reference Range Interpretation Comme nts GLUCOSE (test code = 2217) 262 MG/DL BUN (test code = 2208) 12 MG/DL CREATININE (test code = 2214) 0.76 MG/DL eGFR (2020 CKD-EPI) (test code = 61613) 103 ML/MIN/1.73 CALC BUN/CREAT (test code = 2235) 16 RATIO SODIUM (test code = 2231) 138 MEQ/L POTASSIUM (test code = 2228) 4.1 MEQ/L CHLORIDE (test code = 2215) 102 MEQ/L CARBON DIOXIDE (test code = 2206) 21 MEQ/L CALCIUM (test code = 2209) 9.3 MG/DL PROTEIN, TOTAL (test code = 2229) 7.5 G/DL ALBUMIN (test code = 2201) 4.3 G/DL CALC GLOBULIN (test code = 2240) 3.2 G/DL CALC A/G RATIO (test code = 2234) 1.3 RATIO BILIRUBIN, TOTAL (test code = 2207) 0.2 MG/DL ALKALINE PHOSPHATASE (test code = 2204) 76 U/L AST (test code = 2218) 20 U/L ALT (test code = 2219) 23 U/L COMPREHENSIVE METABOLIC [id number] 00:00:00* Test Item Value Reference Range Interpretation Comme nts GLUCOSE (test code = 2217) 262 MG/DL BUN (test code = 2208) 12 MG/DL CREATININE (test code = 2214) 0.76 MG/DL eGFR (2020 CKD-EPI) (test code = 28674) 103 ML/MIN/1.73 CALC BUN/CREAT (test code = 2235) 16 RATIO SODIUM (test code = 2231) 138 MEQ/L POTASSIUM (test code = 2228) 4.1 MEQ/L CHLORIDE (test code = 2215) 102 MEQ/L CARBON DIOXIDE (test code = 2206) 21 MEQ/L CALCIUM (test code = 2209) 9.3 MG/DL PROTEIN, TOTAL (test code = 2229) 7.5 G/DL ALBUMIN (test code = 2201) 4.3 G/DL CALC GLOBULIN (test code = 2240) 3.2 G/DL CALC A/G RATIO (test code = 2234) 1.3 RATIO BILIRUBIN, TOTAL (test code = 2207) 0.2 MG/DL ALKALINE PHOSPHATASE (test code = 2204) 76 U/L AST (test code = 2218) 20 U/L ALT (test code = 2219) 23 U/L HEMOGLOBIN [id number] 00:00:00* Test Item Value Reference Range Interpretation Comme nts HEMOGLOBIN A1c (test code = 64300) 8.1 % HEMOGLOBIN [id number] 00:00:00* Test Item Value Reference Range Interpretation Comme nts HEMOGLOBIN A1c (test code = 38991) 8.1 % HEMOGLOBIN [id number] 00:00:00* Test Item Value Reference Range Interpretation Comme nts HEMOGLOBIN A1c (test code = 28417) 8.1 % LIPID [id number] 00:00:00* Test Item Value Reference Range Interpretation Comme nts CHOLESTEROL (test code = 2210) 170 MG/DL TRIGLYCERIDES (test code = 2232) 272 MG/DL HDL CHOLESTEROL (test code = 2220) 35 MG/DL CALC LDL CHOL (test code = 2237) 96 MG/DL RISK RATIO LDL/HDL (test cod e = 2238) 2.74 RATIO LIPID [id number] 00:00:00* Test Item Value Reference Range Interpretation Comme nts CHOLESTEROL (test code = 2210) 170 MG/DL TRIGLYCERIDES (test code = 2232) 272 MG/DL HDL CHOLESTEROL (test code = 2220) 35 MG/DL CALC LDL CHOL (test code = 2237) 96 MG/DL RISK RATIO LDL/HDL (test cod e = 2238) 2.74 RATIO COMPREHENSIVE METABOLIC [id number] 00:00:00* Test Item Value Reference Range Interpretation Comme nts GLUCOSE (test code = 2217) 262 MG/DL BUN (test code = 2207) 12 MG/DL CREATININE (test code = 2214) 0.76 MG/DL eGFR (2020 CKD-EPI) (test code = 41695) 103 ML/MIN/1.73 CALC BUN/CREAT (test code = 2235) 16 RATIO SODIUM (test code = 2231) 138 MEQ/L POTASSIUM (test code = 2228) 4.1 MEQ/L CHLORIDE (test code = 2215) 102 MEQ/L CARBON DIOXIDE (test code = 2206) 21 MEQ/L CALCIUM (test code = 2209) 9.3 MG/DL PROTEIN, TOTAL (test code = 2229) 7.5 G/DL ALBUMIN (test code = 2201) 4.3 G/DL CALC GLOBULIN (test code = 2240) 3.2 G/DL CALC A/G RATIO (test code = 2234) 1.3 RATIO BILIRUBIN, TOTAL (test code = 2207) 0.2 MG/DL ALKALINE PHOSPHATASE (test code = 2204) 76 U/L AST (test code = 2218) 20 U/L ALT (test code = 2219) 23 U/L COMPREHENSIVE METABOLIC [id number] 00:00:00* Test Item Value Reference Range Interpretation Comme nts GLUCOSE (test code = 2217) 262 MG/DL BUN (test code = 2208) 12 MG/DL CREATININE (test code = 2214) 0.76 MG/DL eGFR (2020 CKD-EPI) (test code = 17833) 103 ML/MIN/1.73 CALC BUN/CREAT (test code = 2235) 16 RATIO SODIUM (test code = 2231) 138 MEQ/L POTASSIUM (test code = 2228) 4.1 MEQ/L CHLORIDE (test code = 2215) 102 MEQ/L CARBON DIOXIDE (test code = 2206) 21 MEQ/L CALCIUM (test code = 2209) 9.3 MG/DL PROTEIN, TOTAL (test code = 2229) 7.5 G/DL ALBUMIN (test code = 2201) 4.3 G/DL CALC GLOBULIN (test code = 2240) 3.2 G/DL CALC A/G RATIO (test code = 2234) 1.3 RATIO BILIRUBIN, TOTAL (test code = 2207) 0.2 MG/DL ALKALINE PHOSPHATASE (test code = 2204) 76 U/L AST (test code = 2218) 20 U/L ALT (test code = 2219) 23 U/L HEMOGLOBIN [id number] 00:00:00* Test Item Value Reference Range Interpretation Comme nts HEMOGLOBIN A1c (test code = 45109) 8.1 % HEMOGLOBIN [id number] 00:00:00* Test Item Value Reference Range Interpretation Comme nts HEMOGLOBIN A1c (test code = 91241) 8.1 % LIPID [id number] 00:00:00* Test Item Value Reference Range Interpretation Comme nts CHOLESTEROL (test code = 2210) 170 MG/DL TRIGLYCERIDES (test code = 2232) 272 MG/DL HDL CHOLESTEROL (test code = 2220) 35 MG/DL CALC LDL CHOL (test code = 2237) 96 MG/DL RISK RATIO LDL/HDL (test cod e = 2238) 2.74 RATIO COMPREHENSIVE METABOLIC [id number] 00:00:00* Test Item Value Reference Range Interpretation Comme nts GLUCOSE (test code = 2217) 262 MG/DL BUN (test code = 2208) 12 MG/DL CREATININE (test code = 2214) 0.76 MG/DL eGFR (2020 CKD-EPI) (test code = 00107) 103 ML/MIN/1.73 CALC BUN/CREAT (test code = 2235) 16 RATIO SODIUM (test code = 2231) 138 MEQ/L POTASSIUM (test code = 2228) 4.1 MEQ/L CHLORIDE (test code = 2215) 102 MEQ/L CARBON DIOXIDE (test code = 2206) 21 MEQ/L CALCIUM (test code = 2209) 9.3 MG/DL PROTEIN, TOTAL (test code = 2229) 7.5 G/DL ALBUMIN (test code = 2201) 4.3 G/DL CALC GLOBULIN (test code = 2240) 3.2 G/DL CALC A/G RATIO (test code = 2234) 1.3 RATIO BILIRUBIN, TOTAL (test code = 2207) 0.2 MG/DL ALKALINE PHOSPHATASE (test code = 2204) 76 U/L AST (test code = 2218) 20 U/L ALT (test code = 2219) 23 U/L HEMOGLOBIN [id number] 00:00:00* Test Item Value Reference Range Interpretation Comme nts HEMOGLOBIN A1c (test code = 65918) 8.1 % HEMOGLOBIN [id number] 00:00:00* Test Item Value Reference Range Interpretation Comme nts HEMOGLOBIN A1c (test code = 92159) 8.1 % LIPID [id number] 00:00:00* Test Item Value Reference Range Interpretation Comme nts CHOLESTEROL (test code = 2210) 170 MG/DL TRIGLYCERIDES (test code = 2232) 272 MG/DL HDL CHOLESTEROL (test code = 2220) 35 MG/DL CALC LDL CHOL (test code = 2237) 96 MG/DL RISK RATIO LDL/HDL (test cod e = 2238) 2.74 RATIO COMPREHENSIVE METABOLIC [id number] 00:00:00* Test Item Value Reference Range Interpretation Comme nts GLUCOSE (test code = 2217) 262 MG/DL BUN (test code = 2208) 12 MG/DL CREATININE (test code = 2214) 0.76 MG/DL eGFR (2020 CKD-EPI) (test code = 87826) 103 ML/MIN/1.73 CALC BUN/CREAT (test code = 2235) 16 RATIO SODIUM (test code = 2231) 138 MEQ/L POTASSIUM (test code = 2228) 4.1 MEQ/L CHLORIDE (test code = 2215) 102 MEQ/L CARBON DIOXIDE (test code = 2206) 21 MEQ/L CALCIUM (test code = 2209) 9.3 MG/DL PROTEIN, TOTAL (test code = 2229) 7.5 G/DL ALBUMIN (test code = 2201) 4.3 G/DL CALC GLOBULIN (test code = 2240) 3.2 G/DL CALC A/G RATIO (test code = 2234) 1.3 RATIO BILIRUBIN, TOTAL (test code = 2207) 0.2 MG/DL ALKALINE PHOSPHATASE (test code = 2204) 76 U/L AST (test code = 2218) 20 U/L ALT (test code = 2219) 23 U/L HEMOGLOBIN [id number] 00:00:00* Test Item Value Reference Range Interpretation Comme nts HEMOGLOBIN A1c (test code = 68247) 8.1 % HEMOGLOBIN [id number] 00:00:00* Test Item Value Reference Range Interpretation Comme nts HEMOGLOBIN A1c (test code = 19743) 8.1 % LIPID [id number] 00:00:00* Test Item Value Reference Range Interpretation Comme nts CHOLESTEROL (test code = 2210) 170 MG/DL TRIGLYCERIDES (test code = 2232) 272 MG/DL HDL CHOLESTEROL (test code = 2220) 35 MG/DL CALC LDL CHOL (test code = 2237) 96 MG/DL RISK RATIO LDL/HDL (test cod e = 2238) 2.74 RATIO COMPREHENSIVE METABOLIC [id number] 00:00:00* Test Item Value Reference Range Interpretation Comme nts GLUCOSE (test code = 2217) 262 MG/DL BUN (test code = 2208) 12 MG/DL CREATININE (test code = 2214) 0.76 MG/DL eGFR (2020 CKD-EPI) (test code = 03086) 103 ML/MIN/1.73 CALC BUN/CREAT (test code = 2235) 16 RATIO SODIUM (test code = 2231) 138 MEQ/L POTASSIUM (test code = 2228) 4.1 MEQ/L CHLORIDE (test code = 2215) 102 MEQ/L CARBON DIOXIDE (test code = 2206) 21 MEQ/L CALCIUM (test code = 2209) 9.3 MG/DL PROTEIN, TOTAL (test code = 2229) 7.5 G/DL ALBUMIN (test code = 2201) 4.3 G/DL CALC GLOBULIN (test code = 2240) 3.2 G/DL CALC A/G RATIO (test code = 2234) 1.3 RATIO BILIRUBIN, TOTAL (test code = 2207) 0.2 MG/DL ALKALINE PHOSPHATASE (test code = 2204) 76 U/L AST (test code = 2218) 20 U/L ALT (test code = 2219) 23 U/L CULTURE, [id number] 08:58:31SPECIMEN NUMBER: [id number] CULTURE, URINE SPECIMEN NUMBER: [id number] SPECIMEN COMMENT: URINE SOURCE: URINE REPORT STATUS: FINAL FINAL REPORT: 07/14/2021 <10,000 CFU/ML UROGENITAL SEVERIANO PRESENT NO COMMON PATHOGENS UNLESS OTHERWISE INDICATED, [facility] [address] [place] [address] [employer]TER PLUMBING: SHAMAR ENRIQUE M.D. CLIA NUMBER [id number] [place]. [id number], [id number] 00:00:00* Test Item Value Reference Range Interpretation Comme nts CULTURE, URINE (test code = 36891) SPECIMEN NUMBER: [id number] CULTURE, [id number] 00:00:00* Test Item Value Reference Range Interpretation Comme nts CULTURE, URINE (test code = 92232) SPECIMEN NUMBER: [id number] CULTURE, [id number] 00:00:00* Test Item Value Reference Range Interpretation Comme nts CULTURE, URINE (test code = 42150) SPECIMEN NUMBER: [id number] CULTURE, [id number] 00:00:00* Test Item Value Reference Range Interpretation Comme nts CULTURE, URINE (test code = 69085) SPECIMEN NUMBER: [id number] CULTURE, [id number] 00:00:00* Test Item Value Reference Range Interpretation Comme nts CULTURE, URINE (test code = 06264) SPECIMEN NUMBER: [id number] CULTURE, [id number] 00:00:00* Test Item Value Reference Range Interpretation Comme nts CULTURE, URINE (test code = 84894) SPECIMEN NUMBER: [id number] CULTURE, [id number] 00:00:00* Test Item Value Reference Range Interpretation Comme nts CULTURE, URINE (test code = 61710) SPECIMEN NUMBER: [id number] CULTURE, [id number] 00:00:00* Test Item Value Reference Range Interpretation Comme nts CULTURE, URINE (test code = 53902) SPECIMEN NUMBER: [id number] CULTURE, [id number] 00:00:00* Test Item Value Reference Range Interpretation Comme nts CULTURE, URINE (test code = 60638) SPECIMEN NUMBER: [id number] CULTURE, [id number] 00:00:00* Test Item Value Reference Range Interpretation Comme nts CULTURE, URINE (test code = 69801) SPECIMEN NUMBER: [id number] CULTURE, [id number] 00:00:00* Test Item Value Reference Range Interpretation Comme nts CULTURE, URINE (test code = 10434) SPECIMEN NUMBER: [id number] CULTURE, [id number] 00:00:00* Test Item Value Reference Range Interpretation Comme nts CULTURE, URINE (test code = 56471) SPECIMEN NUMBER: [id number] CULTURE, [id number] 00:00:00* Test Item Value Reference Range Interpretation Comme nts CULTURE, URINE (test code = 91732) SPECIMEN NUMBER: [id number] CULTURE, [id number] 00:00:00* Test Item Value Reference Range Interpretation Comme nts CULTURE, URINE (test code = 05364) SPECIMEN NUMBER: [id number] CULTURE, [id number] 00:00:00* Test Item Value Reference Range Interpretation Comme nts CULTURE, URINE (test code = 16918) SPECIMEN NUMBER: [id number] CULTURE, [id number] 00:00:00* Test Item Value Reference Range Interpretation Comme nts CULTURE, URINE (test code = 79337) SPECIMEN NUMBER: [id number] CULTURE, [id number] 00:00:00* Test Item Value Reference Range Interpretation Comme nts CULTURE, URINE (test code = 30091) SPECIMEN NUMBER: [id number] CULTURE, [id number] 00:00:00* Test Item Value Reference Range Interpretation Comme nts CULTURE, URINE (test code = 95238) SPECIMEN NUMBER: [id number] CULTURE, [id number] 00:00:00* Test Item Value Reference Range Interpretation Comme nts CULTURE, URINE (test code = 15482) SPECIMEN NUMBER: [id number] CULTURE, [id number] 00:00:00* Test Item Value Reference Range Interpretation Comme nts CULTURE, URINE (test code = 98127) SPECIMEN NUMBER: [id number] CULTURE, [id number] 00:00:00* Test Item Value Reference Range Interpretation Comme nts CULTURE, URINE (test code = 31318) SPECIMEN NUMBER: [id number] CULTURE, [id number] 00:00:00* Test Item Value Reference Range Interpretation Comme nts CULTURE, URINE (test code = 55833) SPECIMEN NUMBER: [id number] TSH, THIRD [id number] 06:26:55* Test Item Value Reference Range Interpretation Comme nts TSH, THIRD GENERATION (test code = 2821) 1.890 UIU/ML 0.400-4.100 VITAMIN [id number] 06:26:55* Test Item Value Reference Range Interpretation Comme nts VITAMIN B-12 (test code = 2840) 509 PG/ML 200-950 UNLESS OTHERWISE INDICATED, [facility] TEST[facility] [address] [place] [address] [employer] PLUMBING: SHAMAR ENRIQUE M.D. CLIA NUMBER [id number] [facility] [place] [id number] VITAMIN D, 25 [id number] 06:04:49* Test Item Value Reference Range Interpretation Comme [facility] VITAMIN D, 25 OH (test code = 4958) 19 NG/ML SEE BELOW L NOTE: 25-HYDR OXYVITAMIN D ASSAY INCLUDES 25-HYDROXYVITAMIN D2 AND D3. METHODOLOGY IS CHEMILUMINESCENT IMMUNOASSAY. INTERPRETIVE RANGES PEDIATRIC (<17 YEARS) . . . . . . . . . . . NG/ML 20-100ADULT: INSUFFICIENT . . . . . . . . . . . . . . NG/ML <20 SUBOPTIMAL . . . . . . . . . . . . . . . NG/ML 20-29 OPTIMAL . . . . . . . . . . . . . . . . . NG/ML 30-100 COMPREHENSIVE METABOLIC [id number] 04:05:20* Test Item Value Reference Range Interpretation Comme nts GLUCOSE (test code = 7) 242 MG/DL 70-99 H BUN (test code = 8) 12 MG/DL 6-20 CREATININE (test code = 2214) 0.97 MG/DL 0.80-1.40 eGFR (2020 CKD-EPI) (test code = 39942) 90 ML/MIN/1.73 >60 CALC BUN/CREAT (test code = 2235) 12 RATIO 6-28 SODIUM (test code = 2231) 135 MEQ/L 133-146 POTASSIUM (test code = 2228) 4.1 MEQ/L 3.5-5.4 CHLORIDE (test code = 2215) 99 MEQ/L 95-107 CARBON DIOXIDE (test code = 2206) 19 MEQ/L 19-31 CALCIUM (test code = 2209) 9.9 MG/DL 8.5-10.5 PROTEIN, TOTAL (test code = 2229) 8.0 G/DL 6.1-8.3 ALBUMIN (test code = 2201) 4.8 G/DL 3.5-5.2 CALC GLOBULIN (test code = 2240) 3.2 G/DL 1.9-3.7 CALC A/G RATIO (test code = 2234) 1.5 RATIO 1.0-2.6 BILIRUBIN, TOTAL (test code = 7) 0.4 MG/DL See_Comment [Automated me ssage] The system which generated this result transmitted reference range: <=1.2. The reference range was not used to interpret this result as normal/abnormal. ALKALINE PHOSPHATASE (test code = 2204) 84 U/L 40-123 AST (test code = 2218) 31 U/L 9-50 ALT (test code = 2219) 35 U/L 5-50 LIPID [id number] 04:05:20* Test Item Value Reference Range Interpretation Comme nts CHOLESTEROL (test code = 2210) 186 MG/DL <200 TRIGLYCERIDES (test code = 2232) 365 MG/DL <150 H HDL CHOLESTEROL (test code = 2220) 39 MG/DL >39 L CALC LDL CHOL (test code = 2237) 98 MG/DL <100 NOTE: CALCULATED LDL IS BASED ON LEONOR-JAUREGUI METHOD WHICHINCLUDES ADJUSTABLE TRIGLYCERIDE:VLDL CHOLESTEROL RATIO.THIS FACTOR VARIES BY MEASURED TRIGLYCERIDE AND NON-HDLCHOLESTEROL CONCENTRATIONS WITH INCREASED CALCULATED LDL SEENIN HIGHER TRIGLYCERIDE OR LOWER NON-HDL SPECIMENS. FOR MOREINFORMATION, SEE CLIENT ANNOUNCEMENT AT [email or web address] RATIO LDL/HDL (test code = 2238) 2.51 RATIO <3.55 HEMOGLOBIN [id number] 02:36:46* Test Item Value Reference Range Interpretation Comme nts HEMOGLOBIN A1c (test code = 93226) 8.4 % 4.2-5.6 H [employer] GUIDELINES FOR HGB A1C: PREDIABETES/INCREASED RISK . . . . . . . 5.7-6.4% DIAGNOSIS OF DIABETES . . . . . . . . . >=6.5% WITH CONFIRMATION OR APPROPRIATE SYMPTOMS NOTE: ASSAY MAY BE AFFECTED BY HEMOGLOBINOPATHIES (SICKLE CELL ANEMIA, S-C DISEASE, OTHERS) OR ARTIFICIALLY LOWERED BY DECREASED RED CELL SURVIVAL (HEMOLYTIC ANEMIAS, BLOOD LOSS, ETC.). CONSIDER ALTERNATE TESTING OR LABORATORY CONSULTATION. CBC W/AUTO DIFF WITH [id number] 02:24:35* Test Item Value Reference Range Interpretation Comme nts WBC (test code = 1001) 9.5 K/UL 3.5-11.0 RBC (test code = 1002) 5.53 M/UL 4.50-6.10 HEMOGLOBIN (test code = 1003) 17.8 G/DL 13.5-17.0 H HEMATOCRIT (test code = 1004) 50.6 % 40.0-51.0 MCV (test code = 1005) 91.5 fL 80.0-99.0 MCH (test code = 1006) 32.2 PG 25.0-33.0 MCHC (test code = 1007) 35.2 G/DL 31.0-36.0 RDW (test code = 1038) 12.7 % 11.5-15.0 NEUTROPHILS (test code = 1008) 70.8 % LYMPHOCYTES (test code = 1010) 16.0 % MONOCYTES (test code = 1011) 9.5 % EOSINOPHILS (test code = 1012) 2.1 % BASOPHILS (test code = 1013) 1.2 % IMMATURE GRANULOCYTES (test code = 1036) 0.4 % NUCLEATED RBCS (test code = 1065) 0.0 /100 WBC'S See_Comment [Automated [employer] ge] The system which generated this result transmitted reference range: 0.0. The reference range was not used to interpret this result as normal/abnormal. PLATELET COUNT (test code = 1015) 132 K/UL 130-400 ABSOLUTE NEUTROPHILS (test code = 1066) 6.70 K/UL 1.50-7.50 ABSOLUTE LYMPHOCYTES (test code = 1067) 1.51 K/UL 1.00-4.00 ABSOLUTE MONOCYTES (test code = 1068) 0.90 K/UL 0.20-1.00 ABSOLUTE EOSINOPHILS (test code = 1040) 0.20 K/UL 0.00-0.50 ABSOLUTE BASOPHILS (test code = 1069) 0.11 K/UL 0.00-0.20 ABS IMMATURE GRANULOCYTES (test code = 1020) 0.04 K/UL 0.00-0.10 ABS NUCLEATED RBCS (test code = 37520) 0.00 K/UL 0.00-0.11 HEMOGLOBIN [id number] 00:00:00* Test Item Value Reference Range Interpretation Comme nts HEMOGLOBIN A1c (test code = 90342) 8.4 % HEMOGLOBIN [id number] 00:00:00* Test Item Value Reference Range Interpretation Comme nts HEMOGLOBIN A1c (test code = 86328) 8.4 % HEMOGLOBIN [id number] 00:00:00* Test Item Value Reference Range Interpretation Comme nts HEMOGLOBIN A1c (test code = 87828) 8.4 % CBC W/AUTO [id number] 00:00:00* Test Item Value Reference Range Interpretation Comme nts WBC (test code = 1001) 9.5 K/UL [...] = 1013) 1.2 % IMMATURE GRANULOCYTES (test code = 1036) 0.4 % NUCLEATED RBCS (test code = 1065) 0.0 /100WBC'S PLATELET COUNT (test code = 1015) 132 K/UL ABSOLUTE NEUTROPHILS (test c ode = 1066) 6.70 K/UL ABSOLUTE LYMPHOCYTES (test c ode = 1067) 1.51 K/UL ABSOLUTE MONOCYTES (test cod e = 1068) 0.90 K/UL ABSOLUTE EOSINOPHILS (test c ode = 1040) 0.20 K/UL ABSOLUTE BASOPHILS (test cod e = 1069) 0.11 K/UL ABS IMMATURE GRANULOCYTES (t est code = 1020) 0.04 K/UL ABS NUCLEATED RBCS (test cod e = 51390) 0.00 K/UL CBC W/AUTO [id number] 00:00:00* Test Item Value Reference Range Interpretation Comme nts WBC (test code = 1001) 9.5 K/UL [...] = 1013) 1.2 % IMMATURE GRANULOCYTES (test code = 1036) 0.4 % NUCLEATED RBCS (test code = 1065) 0.0 /100WBC'S PLATELET COUNT (test code = 1015) 132 K/UL ABSOLUTE NEUTROPHILS (test c ode = 1066) 6.70 K/UL ABSOLUTE LYMPHOCYTES (test c ode = 1067) 1.51 K/UL ABSOLUTE MONOCYTES (test cod e = 1068) 0.90 K/UL ABSOLUTE EOSINOPHILS (test c ode = 1040) 0.20 K/UL ABSOLUTE BASOPHILS (test cod e = 1069) 0.11 K/UL ABS IMMATURE GRANULOCYTES (t est code = 1020) 0.04 K/UL ABS NUCLEATED RBCS (test cod e = 69543) 0.00 K/UL CBC W/AUTO [id number] 00:00:00* Test Item Value Reference Range Interpretation Comme nts WBC (test code = 1001) 9.5 K/UL [...] = 1013) 1.2 % IMMATURE GRANULOCYTES (test code = 1036) 0.4 % NUCLEATED RBCS (test code = 1065) 0.0 /100WBC'S PLATELET COUNT (test code = 1015) 132 K/UL ABSOLUTE NEUTROPHILS (test c ode = 1066) 6.70 K/UL ABSOLUTE LYMPHOCYTES (test c ode = 1067) 1.51 K/UL ABSOLUTE MONOCYTES (test cod e = 1068) 0.90 K/UL ABSOLUTE EOSINOPHILS (test c ode = 1040) 0.20 K/UL ABSOLUTE BASOPHILS (test cod e = 1069) 0.11 K/UL ABS IMMATURE GRANULOCYTES (t est code = 1020) 0.04 K/UL ABS NUCLEATED RBCS (test cod e = 60721) 0.00 K/UL COMPREHENSIVE METABOLIC [id number] 00:00:00* Test Item Value Reference Range Interpretation Comme nts GLUCOSE (test code = 2217) 242 MG/DL BUN (test code = 2208) 12 MG/DL CREATININE (test code = 2214) 0.97 MG/DL eGFR (2020 CKD-EPI) (test co de = 37802) 90 ML/MIN/1.73 CALC BUN/CREAT (test code = 2235) 12 RATIO SODIUM (test code = 2231) 135 MEQ/L POTASSIUM (test code = 2228) 4.1 MEQ/L CHLORIDE (test code = 2215) 99 MEQ/L CARBON DIOXIDE (test code = 2206) 19 MEQ/L CALCIUM (test code = 2209) 9.9 MG/DL PROTEIN, TOTAL (test code = 2229) 8.0 G/DL ALBUMIN (test code = 2201) 4.8 G/DL CALC GLOBULIN (test code = 2240) 3.2 G/DL CALC A/G RATIO (test code = 2234) 1.5 RATIO BILIRUBIN, TOTAL (test code = 2207) 0.4 MG/DL ALKALINE PHOSPHATASE (test code = 2204) 84 U/L AST (test code = 2218) 31 U/L ALT (test code = 2219) 35 U/L COMPREHENSIVE METABOLIC [id number] 00:00:00* Test Item Value Reference Range Interpretation Comme nts GLUCOSE (test code = 2217) 242 MG/DL BUN (test code = 2208) 12 MG/DL CREATININE (test code = 2214) 0.97 MG/DL eGFR (2020 CKD-EPI) (test co de = 62003) 90 ML/MIN/1.73 CALC BUN/CREAT (test code = 2235) 12 RATIO SODIUM (test code = 2231) 135 MEQ/L POTASSIUM (test code = 2228) 4.1 MEQ/L CHLORIDE (test code = 2215) 99 MEQ/L CARBON DIOXIDE (test code = 2206) 19 MEQ/L CALCIUM (test code = 2209) 9.9 MG/DL PROTEIN, TOTAL (test code = 2229) 8.0 G/DL ALBUMIN (test code = 2201) 4.8 G/DL CALC GLOBULIN (test code = 2240) 3.2 G/DL CALC A/G RATIO (test code = 2234) 1.5 RATIO BILIRUBIN, TOTAL (test code = 2207) 0.4 MG/DL ALKALINE PHOSPHATASE (test code = 2204) 84 U/L AST (test code = 2218) 31 U/L ALT (test code = 2219) 35 U/L LIPID [id number] 00:00:00* Test Item Value Reference Range Interpretation Comme nts CHOLESTEROL (test code = 2210) 186 MG/DL TRIGLYCERIDES (test code = 2232) 365 MG/DL HDL CHOLESTEROL (test code = 2220) 39 MG/DL CALC LDL CHOL (test code = 2237) 98 MG/DL RISK RATIO LDL/HDL (test cod e = 2238) 2.51 RATIO LIPID [id number] 00:00:00* Test Item Value Reference Range Interpretation Comme nts CHOLESTEROL (test code = 2210) 186 MG/DL TRIGLYCERIDES (test code = 2232) 365 MG/DL HDL CHOLESTEROL (test code = 2220) 39 MG/DL CALC LDL CHOL (test code = 2237) 98 MG/DL RISK RATIO LDL/HDL (test cod e = 2238) 2.51 RATIO [id number] 00:00:00* Test Item Value Reference Range Interpretation Comme nts TSH, THIRD GENERATION (test code = 2821) 1.890 UIU/ML [id number] 00:00:00* Test Item Value Reference Range Interpretation Comme nts TSH, THIRD GENERATION (test code = 2821) 1.890 UIU/ML [id number] 00:00:00* Test Item Value Reference Range Interpretation Comme nts TSH, THIRD GENERATION (test code = 2821) 1.890 UIU/ML VITAMIN D, 25 [id number] 00:00:00* Test Item Value Reference Range Interpretation Comme nts VITAMIN D, 25 OH (test code = 4958) 19 NG/ML VITAMIN D, 25 [id number] 00:00:00* Test Item Value Reference Range Interpretation Comme nts VITAMIN D, 25 OH (test code = 4958) 19 NG/ML VITAMIN [id number] 00:00:00* Test Item Value Reference Range Interpretation Comme nts VITAMIN B-12 (test code = 2840) 509 PG/ML VITAMIN [id number] 00:00:00* Test Item Value Reference Range Interpretation Comme nts VITAMIN B-12 (test code = 2840) 509 PG/ML VITAMIN [id number] 00:00:00* Test Item Value Reference Range Interpretation Comme nts VITAMIN B-12 (test code = 2840) 509 PG/ML HEMOGLOBIN [id number] 00:00:00* Test Item Value Reference Range Interpretation Comme nts HEMOGLOBIN A1c (test code = 78764) 8.4 % HEMOGLOBIN [id number] 00:00:00* Test Item Value Reference Range Interpretation Comme nts HEMOGLOBIN A1c (test code = 30226) 8.4 % HEMOGLOBIN [id number] 00:00:00* Test Item Value Reference Range Interpretation Comme nts HEMOGLOBIN A1c (test code = 55123) 8.4 % CBC W/AUTO [id number] 00:00:00* Test Item Value Reference Range Interpretation Comme nts WBC (test code = 1001) 9.5 K/UL [...] = 1013) 1.2 % IMMATURE GRANULOCYTES (test code = 1036) 0.4 % NUCLEATED RBCS (test code = 1065) 0.0 /100WBC'S PLATELET COUNT (test code = 1015) 132 K/UL ABSOLUTE NEUTROPHILS (test c ode = 1066) 6.70 K/UL ABSOLUTE LYMPHOCYTES (test c ode = 1067) 1.51 K/UL ABSOLUTE MONOCYTES (test cod e = 1068) 0.90 K/UL ABSOLUTE EOSINOPHILS (test c ode = 1040) 0.20 K/UL ABSOLUTE BASOPHILS (test cod e = 1069) 0.11 K/UL ABS IMMATURE GRANULOCYTES (t est code = 1020) 0.04 K/UL ABS NUCLEATED RBCS (test cod e = 67352) 0.00 K/UL CBC W/AUTO [id number] 00:00:00* Test Item Value Reference Range Interpretation Comme nts WBC (test code = 1001) 9.5 K/UL [...] = 1013) 1.2 % IMMATURE GRANULOCYTES (test code = 1036) 0.4 % NUCLEATED RBCS (test code = 1065) 0.0 /100WBC'S PLATELET COUNT (test code = 1015) 132 K/UL ABSOLUTE NEUTROPHILS (test c ode = 1066) 6.70 K/UL ABSOLUTE LYMPHOCYTES (test c ode = 1067) 1.51 K/UL ABSOLUTE MONOCYTES (test cod e = 1068) 0.90 K/UL ABSOLUTE EOSINOPHILS (test c ode = 1040) 0.20 K/UL ABSOLUTE BASOPHILS (test cod e = 1069) 0.11 K/UL ABS IMMATURE GRANULOCYTES (t est code = 1020) 0.04 K/UL ABS NUCLEATED RBCS (test cod e = 35866) 0.00 K/UL CBC W/AUTO [id number] 00:00:00* Test Item Value Reference Range Interpretation Comme nts WBC (test code = 1001) 9.5 K/UL [...] = 1013) 1.2 % IMMATURE GRANULOCYTES (test code = 1036) 0.4 % NUCLEATED RBCS (test code = 1065) 0.0 /100WBC'S PLATELET COUNT (test code = 1015) 132 K/UL ABSOLUTE NEUTROPHILS (test c ode = 1066) 6.70 K/UL ABSOLUTE LYMPHOCYTES (test c ode = 1067) 1.51 K/UL ABSOLUTE MONOCYTES (test cod e = 1068) 0.90 K/UL ABSOLUTE EOSINOPHILS (test c ode = 1040) 0.20 K/UL ABSOLUTE BASOPHILS (test cod e = 1069) 0.11 K/UL ABS IMMATURE GRANULOCYTES (t est code = 1020) 0.04 K/UL ABS NUCLEATED RBCS (test cod e = 92468) 0.00 K/UL COMPREHENSIVE METABOLIC [id number] 00:00:00* Test Item Value Reference Range Interpretation Comme nts GLUCOSE (test code = 2217) 242 MG/DL BUN (test code = 2208) 12 MG/DL CREATININE (test code = 2214) 0.97 MG/DL eGFR (2020 CKD-EPI) (test co de = 85187) 90 ML/MIN/1.73 CALC BUN/CREAT (test code = 2235) 12 RATIO SODIUM (test code = 2231) 135 MEQ/L POTASSIUM (test code = 2228) 4.1 MEQ/L CHLORIDE (test code = 2215) 99 MEQ/L CARBON DIOXIDE (test code = 2206) 19 MEQ/L CALCIUM (test code = 2209) 9.9 MG/DL PROTEIN, TOTAL (test code = 2229) 8.0 G/DL ALBUMIN (test code = 2201) 4.8 G/DL CALC GLOBULIN (test code = 2240) 3.2 G/DL CALC A/G RATIO (test code = 2234) 1.5 RATIO BILIRUBIN, TOTAL (test code = 2207) 0.4 MG/DL ALKALINE PHOSPHATASE (test code = 2204) 84 U/L AST (test code = 2218) 31 U/L ALT (test code = 2219) 35 U/L COMPREHENSIVE METABOLIC [id number] 00:00:00* Test Item Value Reference Range Interpretation Comme nts GLUCOSE (test code = 2217) 242 MG/DL BUN (test code = 2208) 12 MG/DL CREATININE (test code = 2214) 0.97 MG/DL eGFR (2020 CKD-EPI) (test co de = 38976) 90 ML/MIN/1.73 CALC BUN/CREAT (test code = 2235) 12 RATIO SODIUM (test code = 2231) 135 MEQ/L POTASSIUM (test code = 2228) 4.1 MEQ/L CHLORIDE (test code = 2215) 99 MEQ/L CARBON DIOXIDE (test code = 2206) 19 MEQ/L CALCIUM (test code = 2209) 9.9 MG/DL PROTEIN, TOTAL (test code = 2229) 8.0 G/DL ALBUMIN (test code = 2201) 4.8 G/DL CALC GLOBULIN (test code = 2240) 3.2 G/DL CALC A/G RATIO (test code = 2234) 1.5 RATIO BILIRUBIN, TOTAL (test code = 2207) 0.4 MG/DL ALKALINE PHOSPHATASE (test code = 2204) 84 U/L AST (test code = 2218) 31 U/L ALT (test code = 2219) 35 U/L LIPID [id number] 00:00:00* Test Item Value Reference Range Interpretation Comme nts CHOLESTEROL (test code = 2210) 186 MG/DL TRIGLYCERIDES (test code = 2232) 365 MG/DL HDL CHOLESTEROL (test code = 2220) 39 MG/DL CALC LDL CHOL (test code = 2237) 98 MG/DL RISK RATIO LDL/HDL (test cod e = 2238) 2.51 RATIO LIPID [id number] 00:00:00* Test Item Value Reference Range Interpretation Comme nts CHOLESTEROL (test code = 2210) 186 MG/DL TRIGLYCERIDES (test code = 2232) 365 MG/DL HDL CHOLESTEROL (test code = 2220) 39 MG/DL CALC LDL CHOL (test code = 2237) 98 MG/DL RISK RATIO LDL/HDL (test cod e = 2238) 2.51 RATIO [id number] 00:00:00* Test Item Value Reference Range Interpretation Comme [facility] TSH, THIRD GENERATION (test code = 2821) 1.890 UIU/ML [id number] 00:00:00* Test Item Value Reference Range Interpretation Comme nts TSH, THIRD GENERATION (test code = 2821) 1.890 UIU/ML [id number] 00:00:00* Test Item Value Reference Range Interpretation Comme nts TSH, THIRD GENERATION (test code = 2821) 1.890 UIU/ML VITAMIN D, 25 [id number] 00:00:00* Test Item Value Reference Range Interpretation Comme [facility] VITAMIN D, 25 OH (test code = 4958) 19 NG/ML VITAMIN D, 25 [id number] 00:00:00* Test Item Value Reference Range Interpretation Comme [facility] VITAMIN D, 25 OH (test code = 4958) 19 NG/ML VITAMIN [id number] 00:00:00* Test Item Value Reference Range Interpretation Comme [facility] VITAMIN B-12 (test code = 2840) 509 PG/ML VITAMIN [id number] 00:00:00* Test Item Value Reference Range Interpretation Comme [facility] VITAMIN B-12 (test code = 2840) 509 PG/ML VITAMIN [id number] 00:00:00* Test Item Value Reference Range Interpretation Comme [facility] VITAMIN B-12 (test code = 2840) 509 PG/ML HEMOGLOBIN [id number] 00:00:00* Test Item Value Reference Range Interpretation Comme [facility] HEMOGLOBIN A1c (test code = 95234) 8.4 % HEMOGLOBIN [id number] 00:00:00* Test Item Value Reference Range Interpretation Comme [facility] HEMOGLOBIN A1c (test code = 27871) 8.4 % CBC W/AUTO [id number] 00:00:00* Test Item Value Reference Range Interpretation Comme [facility] WBC (test code = 1001) 9.5 K/UL [...] = 1013) 1.2 % IMMATURE GRANULOCYTES (test code = 1036) 0.4 % NUCLEATED RBCS (test code = 1065) 0.0 /100WBC'S PLATELET COUNT (test code = 1015) 132 K/UL ABSOLUTE NEUTROPHILS (test c ode = 1066) 6.70 K/UL ABSOLUTE LYMPHOCYTES (test c ode = 1067) 1.51 K/UL ABSOLUTE MONOCYTES (test cod e = 1068) 0.90 K/UL ABSOLUTE EOSINOPHILS (test c ode = 1040) 0.20 K/UL ABSOLUTE BASOPHILS (test cod e = 1069) 0.11 K/UL ABS IMMATURE GRANULOCYTES (t est code = 1020) 0.04 K/UL ABS NUCLEATED RBCS (test cod e = 55389) 0.00 K/UL CBC W/AUTO [id number] 00:00:00* Test Item Value Reference Range Interpretation Comme nts WBC (test code = 1001) 9.5 K/UL [...] = 1013) 1.2 % IMMATURE GRANULOCYTES (test code = 1036) 0.4 % NUCLEATED RBCS (test code = 1065) 0.0 /100WBC'S PLATELET COUNT (test code = 1015) 132 K/UL ABSOLUTE NEUTROPHILS (test c ode = 1066) 6.70 K/UL ABSOLUTE LYMPHOCYTES (test c ode = 1067) 1.51 K/UL ABSOLUTE MONOCYTES (test cod e = 1068) 0.90 K/UL ABSOLUTE EOSINOPHILS (test c ode = 1040) 0.20 K/UL ABSOLUTE BASOPHILS (test cod e = 1069) 0.11 K/UL ABS IMMATURE GRANULOCYTES (t est code = 1020) 0.04 K/UL ABS NUCLEATED RBCS (test cod e = 34300) 0.00 K/UL HEMOGLOBIN [id number] 00:00:00* Test Item Value Reference Range Interpretation Comme nts HEMOGLOBIN A1c (test code = 15528) 8.4 % HEMOGLOBIN [id number] 00:00:00* Test Item Value Reference Range Interpretation Comme nts HEMOGLOBIN A1c (test code = 55720) 8.4 % COMPREHENSIVE METABOLIC [id number] 00:00:00* Test Item Value Reference Range Interpretation Comme nts GLUCOSE (test code = 2217) 242 MG/DL BUN (test code = 2208) 12 MG/DL CREATININE (test code = 2214) 0.97 MG/DL eGFR (2020 CKD-EPI) (test co de = 37669) 90 ML/MIN/1.73 CALC BUN/CREAT (test code = 2235) 12 RATIO SODIUM (test code = 2231) 135 MEQ/L POTASSIUM (test code = 2228) 4.1 MEQ/L CHLORIDE (test code = 2215) 99 MEQ/L CARBON DIOXIDE (test code = 2206) 19 MEQ/L CALCIUM (test code = 2209) 9.9 MG/DL PROTEIN, TOTAL (test code = 2229) 8.0 G/DL ALBUMIN (test code = 2201) 4.8 G/DL CALC GLOBULIN (test code = 2240) 3.2 G/DL CALC A/G RATIO (test code = 2234) 1.5 RATIO BILIRUBIN, TOTAL (test code = 2207) 0.4 MG/DL ALKALINE PHOSPHATASE (test code = 2204) 84 U/L AST (test code = 2218) 31 U/L ALT (test code = 2219) 35 U/L HEMOGLOBIN [id number] 00:00:00* Test Item Value Reference Range Interpretation Comme nts HEMOGLOBIN A1c (test code = 01089) 8.4 % CBC W/AUTO [id number] 00:00:00* Test Item Value Reference Range Interpretation Comme nts WBC (test code = 1001) 9.5 K/UL [...] = 1013) 1.2 % IMMATURE GRANULOCYTES (test code = 1036) 0.4 % NUCLEATED RBCS (test code = 1065) 0.0 /100WBC'S PLATELET COUNT (test code = 1015) 132 K/UL ABSOLUTE NEUTROPHILS (test c ode = 1066) 6.70 K/UL ABSOLUTE LYMPHOCYTES (test c ode = 1067) 1.51 K/UL ABSOLUTE MONOCYTES (test cod e = 1068) 0.90 K/UL ABSOLUTE EOSINOPHILS (test c ode = 1040) 0.20 K/UL ABSOLUTE BASOPHILS (test cod e = 1069) 0.11 K/UL ABS IMMATURE GRANULOCYTES (t est code = 1020) 0.04 K/UL ABS NUCLEATED RBCS (test cod e = 51019) 0.00 K/UL CBC W/AUTO [id number] 00:00:00* Test Item Value Reference Range Interpretation Comme nts WBC (test code = 1001) 9.5 K/UL [...] = 1013) 1.2 % IMMATURE GRANULOCYTES (test code = 1036) 0.4 % NUCLEATED RBCS (test code = 1065) 0.0 /100WBC'S PLATELET COUNT (test code = 1015) 132 K/UL ABSOLUTE NEUTROPHILS (test c ode = 1066) 6.70 K/UL ABSOLUTE LYMPHOCYTES (test c ode = 1067) 1.51 K/UL ABSOLUTE MONOCYTES (test cod e = 1068) 0.90 K/UL ABSOLUTE EOSINOPHILS (test c ode = 1040) 0.20 K/UL ABSOLUTE BASOPHILS (test cod e = 1069) 0.11 K/UL ABS IMMATURE GRANULOCYTES (t est code = 1020) 0.04 K/UL ABS NUCLEATED RBCS (test cod e = 20554) 0.00 K/UL CBC W/AUTO [id number] 00:00:00* Test Item Value Reference Range Interpretation Comme nts WBC (test code = 1001) 9.5 K/UL [...] = 1013) 1.2 % IMMATURE GRANULOCYTES (test code = 1036) 0.4 % NUCLEATED RBCS (test code = 1065) 0.0 /100WBC'S PLATELET COUNT (test code = 1015) 132 K/UL ABSOLUTE NEUTROPHILS (test c ode = 1066) 6.70 K/UL ABSOLUTE LYMPHOCYTES (test c ode = 1067) 1.51 K/UL ABSOLUTE MONOCYTES (test cod e = 1068) 0.90 K/UL ABSOLUTE EOSINOPHILS (test c ode = 1040) 0.20 K/UL ABSOLUTE BASOPHILS (test cod e = 1069) 0.11 K/UL ABS IMMATURE GRANULOCYTES (t est code = 1020) 0.04 K/UL ABS NUCLEATED RBCS (test cod e = 97132) 0.00 K/UL COMPREHENSIVE METABOLIC [id number] 00:00:00* Test Item Value Reference Range Interpretation Comme nts GLUCOSE (test code = 2217) 242 MG/DL BUN (test code = 2208) 12 MG/DL CREATININE (test code = 2214) 0.97 MG/DL eGFR (2020 CKD-EPI) (test co de = 61547) 90 ML/MIN/1.73 CALC BUN/CREAT (test code = 2235) 12 RATIO SODIUM (test code = 2231) 135 MEQ/L POTASSIUM (test code = 2228) 4.1 MEQ/L CHLORIDE (test code = 2215) 99 MEQ/L CARBON DIOXIDE (test code = 2206) 19 MEQ/L CALCIUM (test code = 2209) 9.9 MG/DL PROTEIN, TOTAL (test code = 2229) 8.0 G/DL ALBUMIN (test code = 2201) 4.8 G/DL CALC GLOBULIN (test code = 2240) 3.2 G/DL CALC A/G RATIO (test code = 2234) 1.5 RATIO BILIRUBIN, TOTAL (test code = 2207) 0.4 MG/DL ALKALINE PHOSPHATASE (test code = 2204) 84 U/L AST (test code = 2218) 31 U/L ALT (test code = 2219) 35 U/L COMPREHENSIVE METABOLIC [id number] 00:00:00* Test Item Value Reference Range Interpretation Comme nts GLUCOSE (test code = 2217) 242 MG/DL BUN (test code = 2208) 12 MG/DL CREATININE (test code = 2214) 0.97 MG/DL eGFR (2020 CKD-EPI) (test co de = 52813) 90 ML/MIN/1.73 CALC BUN/CREAT (test code = 2235) 12 RATIO SODIUM (test code = 2231) 135 MEQ/L POTASSIUM (test code = 2228) 4.1 MEQ/L CHLORIDE (test code = 2215) 99 MEQ/L CARBON DIOXIDE (test code = 2206) 19 MEQ/L CALCIUM (test code = 2209) 9.9 MG/DL PROTEIN, TOTAL (test code = 2229) 8.0 G/DL ALBUMIN (test code = 2201) 4.8 G/DL CALC GLOBULIN (test code = 2240) 3.2 G/DL CALC A/G RATIO (test code = 2234) 1.5 RATIO BILIRUBIN, TOTAL (test code = 2207) 0.4 MG/DL ALKALINE PHOSPHATASE (test code = 2204) 84 U/L AST (test code = 2218) 31 U/L ALT (test code = 2219) 35 U/L LIPID [id number] 00:00:00* Test Item Value Reference Range Interpretation Comme nts CHOLESTEROL (test code = 2210) 186 MG/DL TRIGLYCERIDES (test code = 2232) 365 MG/DL HDL CHOLESTEROL (test code = 2220) 39 MG/DL CALC LDL CHOL (test code = 2237) 98 MG/DL RISK RATIO LDL/HDL (test cod e = 2238) 2.51 RATIO LIPID [id number] 00:00:00* Test Item Value Reference Range Interpretation Comme nts CHOLESTEROL (test code = 2210) 186 MG/DL TRIGLYCERIDES (test code = 2232) 365 MG/DL HDL CHOLESTEROL (test code = 2220) 39 MG/DL CALC LDL CHOL (test code = 2237) 98 MG/DL RISK RATIO LDL/HDL (test cod e = 2238) 2.51 RATIO LIPID [id number] 00:00:00* Test Item Value Reference Range Interpretation Comme nts CHOLESTEROL (test code = 2210) 186 MG/DL TRIGLYCERIDES (test code = 2232) 365 MG/DL HDL CHOLESTEROL (test code = 2220) 39 MG/DL CALC LDL CHOL (test code = 2237) 98 MG/DL RISK RATIO LDL/HDL (test cod e = 2238) 2.51 RATIO [id number] 00:00:00* Test Item Value Reference Range Interpretation Comme nts TSH, THIRD GENERATION (test code = 2821) 1.890 UIU/ML [id number] 00:00:00* Test Item Value Reference Range Interpretation Comme nts TSH, THIRD GENERATION (test code = 2821) 1.890 UIU/ML [id number] 00:00:00* Test Item Value Reference Range Interpretation Comme nts TSH, THIRD GENERATION (test code = 2821) 1.890 UIU/ML [id number] 00:00:00* Test Item Value Reference Range Interpretation Comme nts TSH, THIRD GENERATION (test code = 2821) 1.890 UIU/ML VITAMIN D, 25 [id number] 00:00:00* Test Item Value Reference Range Interpretation Comme nts VITAMIN D, 25 OH (test code = 4958) 19 NG/ML VITAMIN D, 25 [id number] 00:00:00* Test Item Value Reference Range Interpretation Comme nts VITAMIN D, 25 OH (test code = 4958) 19 NG/ML VITAMIN [id number] 00:00:00* Test Item Value Reference Range Interpretation Comme nts VITAMIN B-12 (test code = 2840) 509 PG/ML VITAMIN [id number] 00:00:00* Test Item Value Reference Range Interpretation Comme nts VITAMIN B-12 (test code = 2840) 509 PG/ML VITAMIN [id number] 00:00:00* Test Item Value Reference Range Interpretation Comme nts VITAMIN B-12 (test code = 2840) 509 PG/ML [id number] 00:00:00* Test Item Value Reference Range Interpretation Comme nts TSH, THIRD GENERATION (test code = 2821) 1.890 UIU/ML VITAMIN D, 25 [id number] 00:00:00* Test Item Value Reference Range Interpretation Comme nts VITAMIN D, 25 OH (test code = 4958) 19 NG/ML VITAMIN [id number] 00:00:00* Test Item Value Reference Range Interpretation Comme nts VITAMIN B-12 (test code = 2840) 509 PG/ML VITAMIN [id number] 00:00:00* Test Item Value Reference Range Interpretation Comme nts VITAMIN B-12 (test code = 2840) 509 PG/ML HEMOGLOBIN [id number] 00:00:00* Test Item Value Reference Range Interpretation Comme nts HEMOGLOBIN A1c (test code = 25982) 8.4 % HEMOGLOBIN [id number] 00:00:00* Test Item Value Reference Range Interpretation Comme nts HEMOGLOBIN A1c (test code = 57563) 8.4 % HEMOGLOBIN [id number] 00:00:00* Test Item Value Reference Range Interpretation Comme nts HEMOGLOBIN A1c (test code = 92493) 8.4 % CBC W/AUTO [id number] 00:00:00* Test Item Value Reference Range Interpretation Comme nts WBC (test code = 1001) 9.5 K/UL [...] = 1013) 1.2 % IMMATURE GRANULOCYTES (test code = 1036) 0.4 % NUCLEATED RBCS (test code = 1065) 0.0 /100WBC'S PLATELET COUNT (test code = 1015) 132 K/UL ABSOLUTE NEUTROPHILS (test c ode = 1066) 6.70 K/UL ABSOLUTE LYMPHOCYTES (test c ode = 1067) 1.51 K/UL ABSOLUTE MONOCYTES (test cod e = 1068) 0.90 K/UL ABSOLUTE EOSINOPHILS (test c ode = 1040) 0.20 K/UL ABSOLUTE BASOPHILS (test cod e = 1069) 0.11 K/UL ABS IMMATURE GRANULOCYTES (t est code = 1020) 0.04 K/UL ABS NUCLEATED RBCS (test cod e = 74219) 0.00 K/UL CBC W/AUTO [id number] 00:00:00* Test Item Value Reference Range Interpretation Comme nts WBC (test code = 1001) 9.5 K/UL [...] = 1013) 1.2 % IMMATURE GRANULOCYTES (test code = 1036) 0.4 % NUCLEATED RBCS (test code = 1065) 0.0 /100WBC'S PLATELET COUNT (test code = 1015) 132 K/UL ABSOLUTE NEUTROPHILS (test c ode = 1066) 6.70 K/UL ABSOLUTE LYMPHOCYTES (test c ode = 1067) 1.51 K/UL ABSOLUTE MONOCYTES (test cod e = 1068) 0.90 K/UL ABSOLUTE EOSINOPHILS (test c ode = 1040) 0.20 K/UL ABSOLUTE BASOPHILS (test cod e = 1069) 0.11 K/UL ABS IMMATURE GRANULOCYTES (t est code = 1020) 0.04 K/UL ABS NUCLEATED RBCS (test cod e = 84652) 0.00 K/UL CBC W/AUTO [id number] 00:00:00* Test Item Value Reference Range Interpretation Comme nts WBC (test code = 1001) 9.5 K/UL [...] = 1013) 1.2 % IMMATURE GRANULOCYTES (test code = 1036) 0.4 % NUCLEATED RBCS (test code = 1065) 0.0 /100WBC'S PLATELET COUNT (test code = 1015) 132 K/UL ABSOLUTE NEUTROPHILS (test c ode = 1066) 6.70 K/UL ABSOLUTE LYMPHOCYTES (test c ode = 1067) 1.51 K/UL ABSOLUTE MONOCYTES (test cod e = 1068) 0.90 K/UL ABSOLUTE EOSINOPHILS (test c ode = 1040) 0.20 K/UL ABSOLUTE BASOPHILS (test cod e = 1069) 0.11 K/UL ABS IMMATURE GRANULOCYTES (t est code = 1020) 0.04 K/UL ABS NUCLEATED RBCS (test cod e = 03100) 0.00 K/UL COMPREHENSIVE METABOLIC [id number] 00:00:00* Test Item Value Reference Range Interpretation Comme nts GLUCOSE (test code = 2217) 242 MG/DL BUN (test code = 2208) 12 MG/DL CREATININE (test code = 2214) 0.97 MG/DL eGFR (2020 CKD-EPI) (test co de = 20385) 90 ML/MIN/1.73 CALC BUN/CREAT (test code = 2235) 12 RATIO SODIUM (test code = 2231) 135 MEQ/L POTASSIUM (test code = 2228) 4.1 MEQ/L CHLORIDE (test code = 2215) 99 MEQ/L CARBON DIOXIDE (test code = 2206) 19 MEQ/L CALCIUM (test code = 2209) 9.9 MG/DL PROTEIN, TOTAL (test code = 2229) 8.0 G/DL ALBUMIN (test code = 2201) 4.8 G/DL CALC GLOBULIN (test code = 2240) 3.2 G/DL CALC A/G RATIO (test code = 2234) 1.5 RATIO BILIRUBIN, TOTAL (test code = 2207) 0.4 MG/DL ALKALINE PHOSPHATASE (test code = 2204) 84 U/L AST (test code = 2218) 31 U/L ALT (test code = 2219) 35 U/L COMPREHENSIVE METABOLIC [id number] 00:00:00* Test Item Value Reference Range Interpretation Comme nts GLUCOSE (test code = 2217) 242 MG/DL BUN (test code = 2208) 12 MG/DL CREATININE (test code = 2214) 0.97 MG/DL eGFR (2020 CKD-EPI) (test co de = 40858) 90 ML/MIN/1.73 CALC BUN/CREAT (test code = 2235) 12 RATIO SODIUM (test code = 2231) 135 MEQ/L POTASSIUM (test code = 2228) 4.1 MEQ/L CHLORIDE (test code = 2215) 99 MEQ/L CARBON DIOXIDE (test code = 2206) 19 MEQ/L CALCIUM (test code = 2209) 9.9 MG/DL PROTEIN, TOTAL (test code = 2229) 8.0 G/DL ALBUMIN (test code = 2201) 4.8 G/DL CALC GLOBULIN (test code = 2240) 3.2 G/DL CALC A/G RATIO (test code = 2234) 1.5 RATIO BILIRUBIN, TOTAL (test code = 2207) 0.4 MG/DL ALKALINE PHOSPHATASE (test code = 2204) 84 U/L AST (test code = 2218) 31 U/L ALT (test code = 2219) 35 U/L LIPID [id number] 00:00:00* Test Item Value Reference Range Interpretation Comme nts CHOLESTEROL (test code = 2210) 186 MG/DL TRIGLYCERIDES (test code = 2232) 365 MG/DL HDL CHOLESTEROL (test code = 2220) 39 MG/DL CALC LDL CHOL (test code = 2237) 98 MG/DL RISK RATIO LDL/HDL (test cod e = 2238) 2.51 RATIO LIPID [id number] 00:00:00* Test Item Value Reference Range Interpretation Comme nts CHOLESTEROL (test code = 2210) 186 MG/DL TRIGLYCERIDES (test code = 2232) 365 MG/DL HDL CHOLESTEROL (test code = 2220) 39 MG/DL CALC LDL CHOL (test code = 2237) 98 MG/DL RISK RATIO LDL/HDL (test cod e = 2238) 2.51 RATIO [id number] 00:00:00* Test Item Value Reference Range Interpretation Comme nts TSH, THIRD GENERATION (test code = 2821) 1.890 UIU/ML [id number] 00:00:00* Test Item Value Reference Range Interpretation Comme nts TSH, THIRD GENERATION (test code = 2821) 1.890 UIU/ML [id number] 00:00:00* Test Item Value Reference Range Interpretation Comme nts TSH, THIRD GENERATION (test code = 2821) 1.890 UIU/ML VITAMIN D, 25 [id number] 00:00:00* Test Item Value Reference Range Interpretation Comme nts VITAMIN D, 25 OH (test code = 4958) 19 NG/ML VITAMIN D, 25 [id number] 00:00:00* Test Item Value Reference Range Interpretation Comme nts VITAMIN D, 25 OH (test code = 4958) 19 NG/ML VITAMIN [id number] 00:00:00* Test Item Value Reference Range Interpretation Comme nts VITAMIN B-12 (test code = 2840) 509 PG/ML VITAMIN [id number] 00:00:00* Test Item Value Reference Range Interpretation Comme nts VITAMIN B-12 (test code = 2840) 509 PG/ML VITAMIN [id number] 00:00:00* Test Item Value Reference Range Interpretation Comme nts VITAMIN B-12 (test code = 2840) 509 PG/ML HEMOGLOBIN [id number] 00:00:00* Test Item Value Reference Range Interpretation Comme nts HEMOGLOBIN A1c (test code = 72086) 8.4 % HEMOGLOBIN [id number] 00:00:00* Test Item Value Reference Range Interpretation Comme nts HEMOGLOBIN A1c (test code = 32450) 8.4 % HEMOGLOBIN [id number] 00:00:00* Test Item Value Reference Range Interpretation Comme nts HEMOGLOBIN A1c (test code = 53969) 8.4 % CBC W/AUTO [id number] 00:00:00* Test Item Value Reference Range Interpretation Comme nts WBC (test code = 1001) 9.5 K/UL [...] = 1013) 1.2 % IMMATURE GRANULOCYTES (test code = 1036) 0.4 % NUCLEATED RBCS (test code = 1065) 0.0 /100WBC'S PLATELET COUNT (test code = 1015) 132 K/UL ABSOLUTE NEUTROPHILS (test c ode = 1066) 6.70 K/UL ABSOLUTE LYMPHOCYTES (test c ode = 1067) 1.51 K/UL ABSOLUTE MONOCYTES (test cod e = 1068) 0.90 K/UL ABSOLUTE EOSINOPHILS (test c ode = 1040) 0.20 K/UL ABSOLUTE BASOPHILS (test cod e = 1069) 0.11 K/UL ABS IMMATURE GRANULOCYTES (t est code = 1020) 0.04 K/UL ABS NUCLEATED RBCS (test cod e = 42852) 0.00 K/UL CBC W/AUTO [id number] 00:00:00* Test Item Value Reference Range Interpretation Comme nts WBC (test code = 1001) 9.5 K/UL [...] = 1013) 1.2 % IMMATURE GRANULOCYTES (test code = 1036) 0.4 % NUCLEATED RBCS (test code = 1065) 0.0 /100WBC'S PLATELET COUNT (test code = 1015) 132 K/UL ABSOLUTE NEUTROPHILS (test c ode = 1066) 6.70 K/UL ABSOLUTE LYMPHOCYTES (test c ode = 1067) 1.51 K/UL ABSOLUTE MONOCYTES (test cod e = 1068) 0.90 K/UL ABSOLUTE EOSINOPHILS (test c ode = 1040) 0.20 K/UL ABSOLUTE BASOPHILS (test cod e = 1069) 0.11 K/UL ABS IMMATURE GRANULOCYTES (t est code = 1020) 0.04 K/UL ABS NUCLEATED RBCS (test cod e = 58000) 0.00 K/UL CBC W/AUTO [id number] 00:00:00* Test Item Value Reference Range Interpretation Comme nts WBC (test code = 1001) 9.5 K/UL [...] = 1013) 1.2 % IMMATURE GRANULOCYTES (test code = 1036) 0.4 % NUCLEATED RBCS (test code = 1065) 0.0 /100WBC'S PLATELET COUNT (test code = 1015) 132 K/UL ABSOLUTE NEUTROPHILS (test c ode = 1066) 6.70 K/UL ABSOLUTE LYMPHOCYTES (test c ode = 1067) 1.51 K/UL ABSOLUTE MONOCYTES (test cod e = 1068) 0.90 K/UL ABSOLUTE EOSINOPHILS (test c ode = 1040) 0.20 K/UL ABSOLUTE BASOPHILS (test cod e = 1069) 0.11 K/UL ABS IMMATURE GRANULOCYTES (t est code = 1020) 0.04 K/UL ABS NUCLEATED RBCS (test cod e = 86790) 0.00 K/UL COMPREHENSIVE METABOLIC [id number] 00:00:00* Test Item Value Reference Range Interpretation Comme nts GLUCOSE (test code = 2217) 242 MG/DL BUN (test code = 2208) 12 MG/DL CREATININE (test code = 2214) 0.97 MG/DL eGFR (2020 CKD-EPI) (test co de = 31922) 90 ML/MIN/1.73 CALC BUN/CREAT (test code = 2235) 12 RATIO SODIUM (test code = 2231) 135 MEQ/L POTASSIUM (test code = 2228) 4.1 MEQ/L CHLORIDE (test code = 2215) 99 MEQ/L CARBON DIOXIDE (test code = 2206) 19 MEQ/L CALCIUM (test code = 2209) 9.9 MG/DL PROTEIN, TOTAL (test code = 2229) 8.0 G/DL ALBUMIN (test code = 2201) 4.8 G/DL CALC GLOBULIN (test code = 2240) 3.2 G/DL CALC A/G RATIO (test code = 2234) 1.5 RATIO BILIRUBIN, TOTAL (test code = 2207) 0.4 MG/DL ALKALINE PHOSPHATASE (test code = 2204) 84 U/L AST (test code = 2218) 31 U/L ALT (test code = 2219) 35 U/L COMPREHENSIVE METABOLIC [id number] 00:00:00* Test Item Value Reference Range Interpretation Comme nts GLUCOSE (test code = 2217) 242 MG/DL BUN (test code = 2208) 12 MG/DL CREATININE (test code = 2214) 0.97 MG/DL eGFR (2020 CKD-EPI) (test co de = 57523) 90 ML/MIN/1.73 CALC BUN/CREAT (test code = 2235) 12 RATIO SODIUM (test code = 2231) 135 MEQ/L POTASSIUM (test code = 2228) 4.1 MEQ/L CHLORIDE (test code = 2215) 99 MEQ/L CARBON DIOXIDE (test code = 2206) 19 MEQ/L CALCIUM (test code = 2209) 9.9 MG/DL PROTEIN, TOTAL (test code = 2229) 8.0 G/DL ALBUMIN (test code = 2201) 4.8 G/DL CALC GLOBULIN (test code = 2240) 3.2 G/DL CALC A/G RATIO (test code = 2234) 1.5 RATIO BILIRUBIN, TOTAL (test code = 2207) 0.4 MG/DL ALKALINE PHOSPHATASE (test code = 2204) 84 U/L AST (test code = 2218) 31 U/L ALT (test code = 2219) 35 U/L LIPID [id number] 00:00:00* Test Item Value Reference Range Interpretation Comme nts CHOLESTEROL (test code = 2210) 186 MG/DL TRIGLYCERIDES (test code = 2232) 365 MG/DL HDL CHOLESTEROL (test code = 2220) 39 MG/DL CALC LDL CHOL (test code = 2237) 98 MG/DL RISK RATIO LDL/HDL (test cod e = 2238) 2.51 RATIO LIPID [id number] 00:00:00* Test Item Value Reference Range Interpretation Comme nts CHOLESTEROL (test code = 2210) 186 MG/DL TRIGLYCERIDES (test code = 2232) 365 MG/DL HDL CHOLESTEROL (test code = 2220) 39 MG/DL CALC LDL CHOL (test code = 2237) 98 MG/DL RISK RATIO LDL/HDL (test cod e = 2238) 2.51 RATIO [id number] 00:00:00* Test Item Value Reference Range Interpretation Comme nts TSH, THIRD GENERATION (test code = 2821) 1.890 UIU/ML [id number] 00:00:00* Test Item Value Reference Range Interpretation Comme nts TSH, THIRD GENERATION (test code = 2821) 1.890 UIU/ML [id number] 00:00:00* Test Item Value Reference Range Interpretation Comme nts TSH, THIRD GENERATION (test code = 2821) 1.890 UIU/ML VITAMIN D, 25 [id number] 00:00:00* Test Item Value Reference Range Interpretation Comme nts VITAMIN D, 25 OH (test code = 4958) 19 NG/ML VITAMIN D, 25 [id number] 00:00:00* Test Item Value Reference Range Interpretation Comme nts VITAMIN D, 25 OH (test code = 4958) 19 NG/ML VITAMIN [id number] 00:00:00* Test Item Value Reference Range Interpretation Comme nts VITAMIN B-12 (test code = 2840) 509 PG/ML VITAMIN [id number] 00:00:00* Test Item Value Reference Range Interpretation Comme nts VITAMIN B-12 (test code = 2840) 509 PG/ML VITAMIN [id number] 00:00:00* Test Item Value Reference Range Interpretation Comme nts VITAMIN B-12 (test code = 2840) 509 PG/ML HEMOGLOBIN [id number] 00:00:00* Test Item Value Reference Range Interpretation Comme nts HEMOGLOBIN A1c (test code = 78013) 8.4 % HEMOGLOBIN [id number] 00:00:00* Test Item Value Reference Range Interpretation Comme nts HEMOGLOBIN A1c (test code = 14047) 8.4 % HEMOGLOBIN [id number] 00:00:00* Test Item Value Reference Range Interpretation Comme nts HEMOGLOBIN A1c (test code = 72951) 8.4 % CBC W/AUTO [id number] 00:00:00* Test Item Value Reference Range Interpretation Comme nts WBC (test code = 1001) 9.5 K/UL [...] = 1013) 1.2 % IMMATURE GRANULOCYTES (test code = 1036) 0.4 % NUCLEATED RBCS (test code = 1065) 0.0 /100WBC'S PLATELET COUNT (test code = 1015) 132 K/UL ABSOLUTE NEUTROPHILS (test c ode = 1066) 6.70 K/UL ABSOLUTE LYMPHOCYTES (test c ode = 1067) 1.51 K/UL ABSOLUTE MONOCYTES (test cod e = 1068) 0.90 K/UL ABSOLUTE EOSINOPHILS (test c ode = 1040) 0.20 K/UL ABSOLUTE BASOPHILS (test cod e = 1069) 0.11 K/UL ABS IMMATURE GRANULOCYTES (t est code = 1020) 0.04 K/UL ABS NUCLEATED RBCS (test cod e = 43001) 0.00 K/UL CBC W/AUTO [id number] 00:00:00* Test Item Value Reference Range Interpretation Comme nts WBC (test code = 1001) 9.5 K/UL [...] = 1013) 1.2 % IMMATURE GRANULOCYTES (test code = 1036) 0.4 % NUCLEATED RBCS (test code = 1065) 0.0 /100WBC'S PLATELET COUNT (test code = 1015) 132 K/UL ABSOLUTE NEUTROPHILS (test c ode = 1066) 6.70 K/UL ABSOLUTE LYMPHOCYTES (test c ode = 1067) 1.51 K/UL ABSOLUTE MONOCYTES (test cod e = 1068) 0.90 K/UL ABSOLUTE EOSINOPHILS (test c ode = 1040) 0.20 K/UL ABSOLUTE BASOPHILS (test cod e = 1069) 0.11 K/UL ABS IMMATURE GRANULOCYTES (t est code = 1020) 0.04 K/UL ABS NUCLEATED RBCS (test cod e = 69228) 0.00 K/UL CBC W/AUTO [id number] 00:00:00* Test Item Value Reference Range Interpretation Comme nts WBC (test code = 1001) 9.5 K/UL [...] = 1013) 1.2 % IMMATURE GRANULOCYTES (test code = 1036) 0.4 % NUCLEATED RBCS (test code = 1065) 0.0 /100WBC'S PLATELET COUNT (test code = 1015) 132 K/UL ABSOLUTE NEUTROPHILS (test c ode = 1066) 6.70 K/UL ABSOLUTE LYMPHOCYTES (test c ode = 1067) 1.51 K/UL ABSOLUTE MONOCYTES (test cod e = 1068) 0.90 K/UL ABSOLUTE EOSINOPHILS (test c ode = 1040) 0.20 K/UL ABSOLUTE BASOPHILS (test cod e = 1069) 0.11 K/UL ABS IMMATURE GRANULOCYTES (t est code = 1020) 0.04 K/UL ABS NUCLEATED RBCS (test cod e = 40534) 0.00 K/UL COMPREHENSIVE METABOLIC [id number] 00:00:00* Test Item Value Reference Range Interpretation Comme nts GLUCOSE (test code = 2217) 242 MG/DL BUN (test code = 2208) 12 MG/DL CREATININE (test code = 2214) 0.97 MG/DL eGFR (2020 CKD-EPI) (test co de = 02881) 90 ML/MIN/1.73 CALC BUN/CREAT (test code = 2235) 12 RATIO SODIUM (test code = 2231) 135 MEQ/L POTASSIUM (test code = 2228) 4.1 MEQ/L CHLORIDE (test code = 2215) 99 MEQ/L CARBON DIOXIDE (test code = 2206) 19 MEQ/L CALCIUM (test code = 2209) 9.9 MG/DL PROTEIN, TOTAL (test code = 2229) 8.0 G/DL ALBUMIN (test code = 2201) 4.8 G/DL CALC GLOBULIN (test code = 2240) 3.2 G/DL CALC A/G RATIO (test code = 2234) 1.5 RATIO BILIRUBIN, TOTAL (test code = 2207) 0.4 MG/DL ALKALINE PHOSPHATASE (test code = 2204) 84 U/L AST (test code = 2218) 31 U/L ALT (test code = 2219) 35 U/L COMPREHENSIVE METABOLIC [id number] 00:00:00* Test Item Value Reference Range Interpretation Comme nts GLUCOSE (test code = 2217) 242 MG/DL BUN (test code = 2208) 12 MG/DL CREATININE (test code = 2214) 0.97 MG/DL eGFR (2020 CKD-EPI) (test co de = 02809) 90 ML/MIN/1.73 CALC BUN/CREAT (test code = 2235) 12 RATIO SODIUM (test code = 2231) 135 MEQ/L POTASSIUM (test code = 2228) 4.1 MEQ/L CHLORIDE (test code = 2215) 99 MEQ/L CARBON DIOXIDE (test code = 2206) 19 MEQ/L CALCIUM (test code = 2209) 9.9 MG/DL PROTEIN, TOTAL (test code = 2229) 8.0 G/DL ALBUMIN (test code = 2201) 4.8 G/DL CALC GLOBULIN (test code = 2240) 3.2 G/DL CALC A/G RATIO (test code = 2234) 1.5 RATIO BILIRUBIN, TOTAL (test code = 2207) 0.4 MG/DL ALKALINE PHOSPHATASE (test code = 2204) 84 U/L AST (test code = 2218) 31 U/L ALT (test code = 2219) 35 U/L LIPID [id number] 00:00:00* Test Item Value Reference Range Interpretation Comme nts CHOLESTEROL (test code = 2210) 186 MG/DL TRIGLYCERIDES (test code = 2232) 365 MG/DL HDL CHOLESTEROL (test code = 2220) 39 MG/DL CALC LDL CHOL (test code = 2237) 98 MG/DL RISK RATIO LDL/HDL (test cod e = 2238) 2.51 RATIO LIPID [id number] 00:00:00* Test Item Value Reference Range Interpretation Comme nts CHOLESTEROL (test code = 2210) 186 MG/DL TRIGLYCERIDES (test code = 2232) 365 MG/DL HDL CHOLESTEROL (test code = 2220) 39 MG/DL CALC LDL CHOL (test code = 2237) 98 MG/DL RISK RATIO LDL/HDL (test cod e = 2238) 2.51 RATIO [id number] 00:00:00* Test Item Value Reference Range Interpretation Comme nts TSH, THIRD GENERATION (test code = 2821) 1.890 UIU/ML [id number] 00:00:00* Test Item Value Reference Range Interpretation Comme nts TSH, THIRD GENERATION (test code = 2821) 1.890 UIU/ML [id number] 00:00:00* Test Item Value Reference Range Interpretation Comme nts TSH, THIRD GENERATION (test code = 2821) 1.890 UIU/ML VITAMIN D, 25 [id number] 00:00:00* Test Item Value Reference Range Interpretation Comme nts VITAMIN D, 25 OH (test code = 4958) 19 NG/ML VITAMIN D, 25 [id number] 00:00:00* Test Item Value Reference Range Interpretation Comme [facility] VITAMIN D, 25 OH (test code = 4958) 19 NG/ML VITAMIN [id number] 00:00:00* Test Item Value Reference Range Interpretation Comme nts VITAMIN B-12 (test code = 2840) 509 PG/ML VITAMIN [id number] 00:00:00* Test Item Value Reference Range Interpretation Comme nts VITAMIN B-12 (test code = 2840) 509 PG/ML VITAMIN [id number] 00:00:00* Test Item Value Reference Range Interpretation Comme nts VITAMIN B-12 (test code = 2840) 509 PG/ML HEMOGLOBIN [id number] 00:00:00* Test Item Value Reference Range Interpretation Comme nts HEMOGLOBIN A1c (test code = 56424) 8.4 % HEMOGLOBIN [id number] 00:00:00* Test Item Value Reference Range Interpretation Comme nts HEMOGLOBIN A1c (test code = 29129) 8.4 % HEMOGLOBIN [id number] 00:00:00* Test Item Value Reference Range Interpretation Comme nts HEMOGLOBIN A1c (test code = 35186) 8.4 % CBC W/AUTO [id number] 00:00:00* Test Item Value Reference Range Interpretation Comme nts WBC (test code = 1001) 9.5 K/UL [...] = 1013) 1.2 % IMMATURE GRANULOCYTES (test code = 1036) 0.4 % NUCLEATED RBCS (test code = 1065) 0.0 /100WBC'S PLATELET COUNT (test code = 1015) 132 K/UL ABSOLUTE NEUTROPHILS (test c ode = 1066) 6.70 K/UL ABSOLUTE LYMPHOCYTES (test c ode = 1067) 1.51 K/UL ABSOLUTE MONOCYTES (test cod e = 1068) 0.90 K/UL ABSOLUTE EOSINOPHILS (test c ode = 1040) 0.20 K/UL ABSOLUTE BASOPHILS (test cod e = 1069) 0.11 K/UL ABS IMMATURE GRANULOCYTES (t est code = 1020) 0.04 K/UL ABS NUCLEATED RBCS (test cod e = 95766) 0.00 K/UL CBC W/AUTO [id number] 00:00:00* Test Item Value Reference Range Interpretation Comme nts WBC (test code = 1001) 9.5 K/UL [...] = 1013) 1.2 % IMMATURE GRANULOCYTES (test code = 1036) 0.4 % NUCLEATED RBCS (test code = 1065) 0.0 /100WBC'S PLATELET COUNT (test code = 1015) 132 K/UL ABSOLUTE NEUTROPHILS (test c ode = 1066) 6.70 K/UL ABSOLUTE LYMPHOCYTES (test c ode = 1067) 1.51 K/UL ABSOLUTE MONOCYTES (test cod e = 1068) 0.90 K/UL ABSOLUTE EOSINOPHILS (test c ode = 1040) 0.20 K/UL ABSOLUTE BASOPHILS (test cod e = 1069) 0.11 K/UL ABS IMMATURE GRANULOCYTES (t est code = 1020) 0.04 K/UL ABS NUCLEATED RBCS (test cod e = 63770) 0.00 K/UL CBC W/AUTO [id number] 00:00:00* Test Item Value Reference Range Interpretation Comme nts WBC (test code = 1001) 9.5 K/UL [...] = 1013) 1.2 % IMMATURE GRANULOCYTES (test code = 1036) 0.4 % NUCLEATED RBCS (test code = 1065) 0.0 /100WBC'S PLATELET COUNT (test code = 1015) 132 K/UL ABSOLUTE NEUTROPHILS (test c ode = 1066) 6.70 K/UL ABSOLUTE LYMPHOCYTES (test c ode = 1067) 1.51 K/UL ABSOLUTE MONOCYTES (test cod e = 1068) 0.90 K/UL ABSOLUTE EOSINOPHILS (test c ode = 1040) 0.20 K/UL ABSOLUTE BASOPHILS (test cod e = 1069) 0.11 K/UL ABS IMMATURE GRANULOCYTES (t est code = 1020) 0.04 K/UL ABS NUCLEATED RBCS (test cod e = 59592) 0.00 K/UL COMPREHENSIVE METABOLIC [id number] 00:00:00* Test Item Value Reference Range Interpretation Comme nts GLUCOSE (test code = 2217) 242 MG/DL BUN (test code = 2208) 12 MG/DL CREATININE (test code = 2214) 0.97 MG/DL eGFR (2020 CKD-EPI) (test co de = 41669) 90 ML/MIN/1.73 CALC BUN/CREAT (test code = 2235) 12 RATIO SODIUM (test code = 2231) 135 MEQ/L POTASSIUM (test code = 2228) 4.1 MEQ/L CHLORIDE (test code = 2215) 99 MEQ/L CARBON DIOXIDE (test code = 2206) 19 MEQ/L CALCIUM (test code = 2209) 9.9 MG/DL PROTEIN, TOTAL (test code = 2229) 8.0 G/DL ALBUMIN (test code = 2201) 4.8 G/DL CALC GLOBULIN (test code = 2240) 3.2 G/DL CALC A/G RATIO (test code = 2234) 1.5 RATIO BILIRUBIN, TOTAL (test code = 2207) 0.4 MG/DL ALKALINE PHOSPHATASE (test code = 2204) 84 U/L AST (test code = 2218) 31 U/L ALT (test code = 2219) 35 U/L COMPREHENSIVE METABOLIC [id number] 00:00:00* Test Item Value Reference Range Interpretation Comme nts GLUCOSE (test code = 2217) 242 MG/DL BUN (test code = 2208) 12 MG/DL CREATININE (test code = 2214) 0.97 MG/DL eGFR (2020 CKD-EPI) (test co de = 06222) 90 ML/MIN/1.73 CALC BUN/CREAT (test code = 2235) 12 RATIO SODIUM (test code = 2231) 135 MEQ/L POTASSIUM (test code = 2228) 4.1 MEQ/L CHLORIDE (test code = 2215) 99 MEQ/L CARBON DIOXIDE (test code = 2206) 19 MEQ/L CALCIUM (test code = 2209) 9.9 MG/DL PROTEIN, TOTAL (test code = 2229) 8.0 G/DL ALBUMIN (test code = 2201) 4.8 G/DL CALC GLOBULIN (test code = 2240) 3.2 G/DL CALC A/G RATIO (test code = 2234) 1.5 RATIO BILIRUBIN, TOTAL (test code = 2207) 0.4 MG/DL ALKALINE PHOSPHATASE (test code = 2204) 84 U/L AST (test code = 2218) 31 U/L ALT (test code = 2219) 35 U/L LIPID [id number] 00:00:00* Test Item Value Reference Range Interpretation Comme nts CHOLESTEROL (test code = 2210) 186 MG/DL TRIGLYCERIDES (test code = 2232) 365 MG/DL HDL CHOLESTEROL (test code = 2220) 39 MG/DL CALC LDL CHOL (test code = 2237) 98 MG/DL RISK RATIO LDL/HDL (test cod e = 2238) 2.51 RATIO LIPID [id number] 00:00:00* Test Item Value Reference Range Interpretation Comme nts CHOLESTEROL (test code = 2210) 186 MG/DL TRIGLYCERIDES (test code = 2232) 365 MG/DL HDL CHOLESTEROL (test code = 2220) 39 MG/DL CALC LDL CHOL (test code = 2237) 98 MG/DL RISK RATIO LDL/HDL (test cod e = 2238) 2.51 RATIO [id number] 00:00:00* Test Item Value Reference Range Interpretation Comme nts TSH, THIRD GENERATION (test code = 2821) 1.890 UIU/ML [id number] 00:00:00* Test Item Value Reference Range Interpretation Comme nts TSH, THIRD GENERATION (test code = 2821) 1.890 UIU/ML [id number] 00:00:00* Test Item Value Reference Range Interpretation Comme nts TSH, THIRD GENERATION (test code = 2821) 1.890 UIU/ML VITAMIN D, 25 [id number] 00:00:00* Test Item Value Reference Range Interpretation Comme nts VITAMIN D, 25 OH (test code = 4958) 19 NG/ML VITAMIN D, 25 [id number] 00:00:00* Test Item Value Reference Range Interpretation Comme nts VITAMIN D, 25 OH (test code = 4958) 19 NG/ML VITAMIN [id number] 00:00:00* Test Item Value Reference Range Interpretation Comme nts VITAMIN B-12 (test code = 2840) 509 PG/ML VITAMIN [id number] 00:00:00* Test Item Value Reference Range Interpretation Comme nts VITAMIN B-12 (test code = 2840) 509 PG/ML VITAMIN [id number] 00:00:00* Test Item Value Reference Range Interpretation Comme nts VITAMIN B-12 (test code = 2840) 509 PG/ML HEMOGLOBIN [id number] 00:00:00* Test Item Value Reference Range Interpretation Comme nts HEMOGLOBIN A1c (test code = 57791) 8.4 % HEMOGLOBIN [id number] 00:00:00* Test Item Value Reference Range Interpretation Comme nts HEMOGLOBIN A1c (test code = 45468) 8.4 % HEMOGLOBIN [id number] 00:00:00* Test Item Value Reference Range Interpretation Comme nts HEMOGLOBIN A1c (test code = 02498) 8.4 % CBC W/AUTO [id number] 00:00:00* Test Item Value Reference Range Interpretation Comme nts WBC (test code = 1001) 9.5 K/UL [...] = 1013) 1.2 % IMMATURE GRANULOCYTES (test code = 1036) 0.4 % NUCLEATED RBCS (test code = 1065) 0.0 /100WBC'S PLATELET COUNT (test code = 1015) 132 K/UL ABSOLUTE NEUTROPHILS (test c ode = 1066) 6.70 K/UL ABSOLUTE LYMPHOCYTES (test c ode = 1067) 1.51 K/UL ABSOLUTE MONOCYTES (test cod e = 1068) 0.90 K/UL ABSOLUTE EOSINOPHILS (test c ode = 1040) 0.20 K/UL ABSOLUTE BASOPHILS (test cod e = 1069) 0.11 K/UL ABS IMMATURE GRANULOCYTES (t est code = 1020) 0.04 K/UL ABS NUCLEATED RBCS (test cod e = 40754) 0.00 K/UL CBC W/AUTO [id number] 00:00:00* Test Item Value Reference Range Interpretation Comme nts WBC (test code = 1001) 9.5 K/UL [...] = 1013) 1.2 % IMMATURE GRANULOCYTES (test code = 1036) 0.4 % NUCLEATED RBCS (test code = 1065) 0.0 /100WBC'S PLATELET COUNT (test code = 1015) 132 K/UL ABSOLUTE NEUTROPHILS (test c ode = 1066) 6.70 K/UL ABSOLUTE LYMPHOCYTES (test c ode = 1067) 1.51 K/UL ABSOLUTE MONOCYTES (test cod e = 1068) 0.90 K/UL ABSOLUTE EOSINOPHILS (test c ode = 1040) 0.20 K/UL ABSOLUTE BASOPHILS (test cod e = 1069) 0.11 K/UL ABS IMMATURE GRANULOCYTES (t est code = 1020) 0.04 K/UL ABS NUCLEATED RBCS (test cod e = 57181) 0.00 K/UL CBC W/AUTO [id number] 00:00:00* Test Item Value Reference Range Interpretation Comme nts WBC (test code = 1001) 9.5 K/UL [...] = 1013) 1.2 % IMMATURE GRANULOCYTES (test code = 1036) 0.4 % NUCLEATED RBCS (test code = 1065) 0.0 /100WBC'S PLATELET COUNT (test code = 1015) 132 K/UL ABSOLUTE NEUTROPHILS (test c ode = 1066) 6.70 K/UL ABSOLUTE LYMPHOCYTES (test c ode = 1067) 1.51 K/UL ABSOLUTE MONOCYTES (test cod e = 1068) 0.90 K/UL ABSOLUTE EOSINOPHILS (test c ode = 1040) 0.20 K/UL ABSOLUTE BASOPHILS (test cod e = 1069) 0.11 K/UL ABS IMMATURE GRANULOCYTES (t est code = 1020) 0.04 K/UL ABS NUCLEATED RBCS (test cod e = 33979) 0.00 K/UL COMPREHENSIVE METABOLIC [id number] 00:00:00* Test Item Value Reference Range Interpretation Comme nts GLUCOSE (test code = 2217) 242 MG/DL BUN (test code = 2208) 12 MG/DL CREATININE (test code = 2214) 0.97 MG/DL eGFR (2020 CKD-EPI) (test co de = 57782) 90 ML/MIN/1.73 CALC BUN/CREAT (test code = 2235) 12 RATIO SODIUM (test code = 2231) 135 MEQ/L POTASSIUM (test code = 2228) 4.1 MEQ/L CHLORIDE (test code = 2215) 99 MEQ/L CARBON DIOXIDE (test code = 2206) 19 MEQ/L CALCIUM (test code = 2209) 9.9 MG/DL PROTEIN, TOTAL (test code = 2229) 8.0 G/DL ALBUMIN (test code = 2201) 4.8 G/DL CALC GLOBULIN (test code = 2240) 3.2 G/DL CALC A/G RATIO (test code = 2234) 1.5 RATIO BILIRUBIN, TOTAL (test code = 2207) 0.4 MG/DL ALKALINE PHOSPHATASE (test code = 2204) 84 U/L AST (test code = 2218) 31 U/L ALT (test code = 2219) 35 U/L COMPREHENSIVE METABOLIC [id number] 00:00:00* Test Item Value Reference Range Interpretation Comme nts GLUCOSE (test code = 2217) 242 MG/DL BUN (test code = 2208) 12 MG/DL CREATININE (test code = 2214) 0.97 MG/DL eGFR (2020 CKD-EPI) (test co de = 88724) 90 ML/MIN/1.73 CALC BUN/CREAT (test code = 2235) 12 RATIO SODIUM (test code = 2231) 135 MEQ/L POTASSIUM (test code = 2228) 4.1 MEQ/L CHLORIDE (test code = 2215) 99 MEQ/L CARBON DIOXIDE (test code = 2206) 19 MEQ/L CALCIUM (test code = 2209) 9.9 MG/DL PROTEIN, TOTAL (test code = 2229) 8.0 G/DL ALBUMIN (test code = 2201) 4.8 G/DL CALC GLOBULIN (test code = 2240) 3.2 G/DL CALC A/G RATIO (test code = 2234) 1.5 RATIO BILIRUBIN, TOTAL (test code = 2207) 0.4 MG/DL ALKALINE PHOSPHATASE (test code = 2204) 84 U/L AST (test code = 2218) 31 U/L ALT (test code = 2219) 35 U/L LIPID [id number] 00:00:00* Test Item Value Reference Range Interpretation Comme nts CHOLESTEROL (test code = 2210) 186 MG/DL TRIGLYCERIDES (test code = 2232) 365 MG/DL HDL CHOLESTEROL (test code = 2220) 39 MG/DL CALC LDL CHOL (test code = 2237) 98 MG/DL RISK RATIO LDL/HDL (test cod e = 2238) 2.51 RATIO LIPID [id number] 00:00:00* Test Item Value Reference Range Interpretation Comme nts CHOLESTEROL (test code = 2210) 186 MG/DL TRIGLYCERIDES (test code = 2232) 365 MG/DL HDL CHOLESTEROL (test code = 2220) 39 MG/DL CALC LDL CHOL (test code = 2237) 98 MG/DL RISK RATIO LDL/HDL (test cod e = 2238) 2.51 RATIO [id number] 00:00:00* Test Item Value Reference Range Interpretation Comme nts TSH, THIRD GENERATION (test code = 2821) 1.890 UIU/ML [id number] 00:00:00* Test Item Value Reference Range Interpretation Comme nts TSH, THIRD GENERATION (test code = 2821) 1.890 UIU/ML [id number] 00:00:00* Test Item Value Reference Range Interpretation Comme nts TSH, THIRD GENERATION (test code = 2821) 1.890 UIU/ML VITAMIN D, 25 [id number] 00:00:00* Test Item Value Reference Range Interpretation Comme nts VITAMIN D, 25 OH (test code = 4958) 19 NG/ML VITAMIN D, 25 [id number] 00:00:00* Test Item Value Reference Range Interpretation Comme nts VITAMIN D, 25 OH (test code = 4958) 19 NG/ML VITAMIN [id number] 00:00:00* Test Item Value Reference Range Interpretation Comme nts VITAMIN B-12 (test code = 2840) 509 PG/ML VITAMIN [id number] 00:00:00* Test Item Value Reference Range Interpretation Comme nts VITAMIN B-12 (test code = 2840) 509 PG/ML VITAMIN [id number] 00:00:00* Test Item Value Reference Range Interpretation Comme nts VITAMIN B-12 (test code = 2840) 509 PG/ML HEMOGLOBIN [id number] 00:00:00* Test Item Value Reference Range Interpretation Comme nts HEMOGLOBIN A1c (test code = 73244) 8.4 % HEMOGLOBIN [id number] 00:00:00* Test Item Value Reference Range Interpretation Comme nts HEMOGLOBIN A1c (test code = 19150) 8.4 % HEMOGLOBIN [id number] 00:00:00* Test Item Value Reference Range Interpretation Comme nts HEMOGLOBIN A1c (test code = 51679) 8.4 % CBC W/AUTO [id number] 00:00:00* Test Item Value Reference Range Interpretation Comme nts WBC (test code = 1001) 9.5 K/UL [...] = 1013) 1.2 % IMMATURE GRANULOCYTES (test code = 1036) 0.4 % NUCLEATED RBCS (test code = 1065) 0.0 /100WBC'S PLATELET COUNT (test code = 1015) 132 K/UL ABSOLUTE NEUTROPHILS (test c ode = 1066) 6.70 K/UL ABSOLUTE LYMPHOCYTES (test c ode = 1067) 1.51 K/UL ABSOLUTE MONOCYTES (test cod e = 1068) 0.90 K/UL ABSOLUTE EOSINOPHILS (test c ode = 1040) 0.20 K/UL ABSOLUTE BASOPHILS (test cod e = 1069) 0.11 K/UL ABS IMMATURE GRANULOCYTES (t est code = 1020) 0.04 K/UL ABS NUCLEATED RBCS (test cod e = 88205) 0.00 K/UL CBC W/AUTO [id number] 00:00:00* Test Item Value Reference Range Interpretation Comme nts WBC (test code = 1001) 9.5 K/UL [...] = 1013) 1.2 % IMMATURE GRANULOCYTES (test code = 1036) 0.4 % NUCLEATED RBCS (test code = 1065) 0.0 /100WBC'S PLATELET COUNT (test code = 1015) 132 K/UL ABSOLUTE NEUTROPHILS (test c ode = 1066) 6.70 K/UL ABSOLUTE LYMPHOCYTES (test c ode = 1067) 1.51 K/UL ABSOLUTE MONOCYTES (test cod e = 1068) 0.90 K/UL ABSOLUTE EOSINOPHILS (test c ode = 1040) 0.20 K/UL ABSOLUTE BASOPHILS (test cod e = 1069) 0.11 K/UL ABS IMMATURE GRANULOCYTES (t est code = 1020) 0.04 K/UL ABS NUCLEATED RBCS (test cod e = 20163) 0.00 K/UL CBC W/AUTO [id number] 00:00:00* Test Item Value Reference Range Interpretation Comme nts WBC (test code = 1001) 9.5 K/UL [...] = 1013) 1.2 % IMMATURE GRANULOCYTES (test code = 1036) 0.4 % NUCLEATED RBCS (test code = 1065) 0.0 /100WBC'S PLATELET COUNT (test code = 1015) 132 K/UL ABSOLUTE NEUTROPHILS (test c ode = 1066) 6.70 K/UL ABSOLUTE LYMPHOCYTES (test c ode = 1067) 1.51 K/UL ABSOLUTE MONOCYTES (test cod e = 1068) 0.90 K/UL ABSOLUTE EOSINOPHILS (test c ode = 1040) 0.20 K/UL ABSOLUTE BASOPHILS (test cod e = 1069) 0.11 K/UL ABS IMMATURE GRANULOCYTES (t est code = 1020) 0.04 K/UL ABS NUCLEATED RBCS (test cod e = 52955) 0.00 K/UL COMPREHENSIVE METABOLIC [id number] 00:00:00* Test Item Value Reference Range Interpretation Comme nts GLUCOSE (test code = 2217) 242 MG/DL BUN (test code = 2208) 12 MG/DL CREATININE (test code = 2214) 0.97 MG/DL eGFR (2020 CKD-EPI) (test co de = 95963) 90 ML/MIN/1.73 CALC BUN/CREAT (test code = 2235) 12 RATIO SODIUM (test code = 2231) 135 MEQ/L POTASSIUM (test code = 2228) 4.1 MEQ/L CHLORIDE (test code = 2215) 99 MEQ/L CARBON DIOXIDE (test code = 2206) 19 MEQ/L CALCIUM (test code = 2209) 9.9 MG/DL PROTEIN, TOTAL (test code = 2229) 8.0 G/DL ALBUMIN (test code = 2201) 4.8 G/DL CALC GLOBULIN (test code = 2240) 3.2 G/DL CALC A/G RATIO (test code = 2234) 1.5 RATIO BILIRUBIN, TOTAL (test code = 2207) 0.4 MG/DL ALKALINE PHOSPHATASE (test code = 2204) 84 U/L AST (test code = 2218) 31 U/L ALT (test code = 2219) 35 U/L COMPREHENSIVE METABOLIC [id number] 00:00:00* Test Item Value Reference Range Interpretation Comme nts GLUCOSE (test code = 2217) 242 MG/DL BUN (test code = 2208) 12 MG/DL CREATININE (test code = 2214) 0.97 MG/DL eGFR (2020 CKD-EPI) (test co de = 74986) 90 ML/MIN/1.73 CALC BUN/CREAT (test code = 2235) 12 RATIO SODIUM (test code = 2231) 135 MEQ/L POTASSIUM (test code = 2228) 4.1 MEQ/L CHLORIDE (test code = 2215) 99 MEQ/L CARBON DIOXIDE (test code = 2206) 19 MEQ/L CALCIUM (test code = 2209) 9.9 MG/DL PROTEIN, TOTAL (test code = 222) 8.0 G/DL ALBUMIN (test code = 2201) 4.8 G/DL CALC GLOBULIN (test code = 2240) 3.2 G/DL CALC A/G RATIO (test code = 2234) 1.5 RATIO BILIRUBIN, TOTAL (test code = 2207) 0.4 MG/DL ALKALINE PHOSPHATASE (test code = 2204) 84 U/L AST (test code = 2218) 31 U/L ALT (test code = 2219) 35 U/L LIPID [id number] 00:00:00* Test Item Value Reference Range Interpretation Comme nts CHOLESTEROL (test code = 2210) 186 MG/DL TRIGLYCERIDES (test code = 2232) 365 MG/DL HDL CHOLESTEROL (test code = 2220) 39 MG/DL CALC LDL CHOL (test code = 2237) 98 MG/DL RISK RATIO LDL/HDL (test cod e = 2238) 2.51 RATIO LIPID [id number] 00:00:00* Test Item Value Reference Range Interpretation Comme nts CHOLESTEROL (test code = 2210) 186 MG/DL TRIGLYCERIDES (test code = 2232) 365 MG/DL HDL CHOLESTEROL (test code = 2220) 39 MG/DL CALC LDL CHOL (test code = 2237) 98 MG/DL RISK RATIO LDL/HDL (test cod e = 2238) 2.51 RATIO [id number] 00:00:00* Test Item Value Reference Range Interpretation Comme nts TSH, THIRD GENERATION (test code = 2821) 1.890 UIU/ML [id number] 00:00:00* Test Item Value Reference Range Interpretation Comme [facility] TSH, THIRD GENERATION (test code = 2821) 1.890 UIU/ML [id number] 00:00:00* Test Item Value Reference Range Interpretation Comme nts TSH, THIRD GENERATION (test code = 2821) 1.890 UIU/ML VITAMIN D, 25 [id number] 00:00:00* Test Item Value Reference Range Interpretation Comme nts VITAMIN D, 25 OH (test code = 4958) 19 NG/ML VITAMIN D, 25 [id number] 00:00:00* Test Item Value Reference Range Interpretation Comme nts VITAMIN D, 25 OH (test code = 4958) 19 NG/ML VITAMIN [id number] 00:00:00* Test Item Value Reference Range Interpretation Comme nts VITAMIN B-12 (test code = 2840) 509 PG/ML VITAMIN [id number] 00:00:00* Test Item Value Reference Range Interpretation Comme [facility] VITAMIN B-12 (test code = 2840) 509 PG/ML VITAMIN [id number] 00:00:00* Test Item Value Reference Range Interpretation Comme nts VITAMIN B-12 (test code = 2840) 509 PG/ML HEMOGLOBIN [id number] 00:00:00* Test Item Value Reference Range Interpretation Comme [facility] HEMOGLOBIN A1c (test code = 40287) 8.4 % HEMOGLOBIN [id number] 00:00:00* Test Item Value Reference Range Interpretation Comme [facility] HEMOGLOBIN A1c (test code = 64455) 8.4 % CBC W/AUTO [id number] 00:00:00* Test Item Value Reference Range Interpretation Comme nts WBC (test code = 1001) 9.5 K/UL [...] = 1013) 1.2 % IMMATURE GRANULOCYTES (test code = 1036) 0.4 % NUCLEATED RBCS (test code = 1065) 0.0 /100WBC'S PLATELET COUNT (test code = 1015) 132 K/UL ABSOLUTE NEUTROPHILS (test c ode = 1066) 6.70 K/UL ABSOLUTE LYMPHOCYTES (test c ode = 1067) 1.51 K/UL ABSOLUTE MONOCYTES (test cod e = 1068) 0.90 K/UL ABSOLUTE EOSINOPHILS (test c ode = 1040) 0.20 K/UL ABSOLUTE BASOPHILS (test cod e = 1069) 0.11 K/UL ABS IMMATURE GRANULOCYTES (t est code = 1020) 0.04 K/UL ABS NUCLEATED RBCS (test cod e = 39962) 0.00 K/UL CBC W/AUTO [id number] 00:00:00* Test Item Value Reference Range Interpretation Comme nts WBC (test code = 1001) 9.5 K/UL [...] = 1013) 1.2 % IMMATURE GRANULOCYTES (test code = 1036) 0.4 % NUCLEATED RBCS (test code = 1065) 0.0 /100WBC'S PLATELET COUNT (test code = 1015) 132 K/UL ABSOLUTE NEUTROPHILS (test c ode = 1066) 6.70 K/UL ABSOLUTE LYMPHOCYTES (test c ode = 1067) 1.51 K/UL ABSOLUTE MONOCYTES (test cod e = 1068) 0.90 K/UL ABSOLUTE EOSINOPHILS (test c ode = 1040) 0.20 K/UL ABSOLUTE BASOPHILS (test cod e = 1069) 0.11 K/UL ABS IMMATURE GRANULOCYTES (t est code = 1020) 0.04 K/UL ABS NUCLEATED RBCS (test cod e = 34585) 0.00 K/UL COMPREHENSIVE METABOLIC [id number] 00:00:00* Test Item Value Reference Range Interpretation Comme nts GLUCOSE (test code = 2217) 242 MG/DL BUN (test code = 2208) 12 MG/DL CREATININE (test code = 2214) 0.97 MG/DL eGFR (2020 CKD-EPI) (test co de = 03649) 90 ML/MIN/1.73 CALC BUN/CREAT (test code = 2235) 12 RATIO SODIUM (test code = 2231) 135 MEQ/L POTASSIUM (test code = 2228) 4.1 MEQ/L CHLORIDE (test code = 2215) 99 MEQ/L CARBON DIOXIDE (test code = 2206) 19 MEQ/L CALCIUM (test code = 2209) 9.9 MG/DL PROTEIN, TOTAL (test code = 2229) 8.0 G/DL ALBUMIN (test code = 2201) 4.8 G/DL CALC GLOBULIN (test code = 2240) 3.2 G/DL CALC A/G RATIO (test code = 2234) 1.5 RATIO BILIRUBIN, TOTAL (test code = 2207) 0.4 MG/DL ALKALINE PHOSPHATASE (test code = 2204) 84 U/L AST (test code = 2218) 31 U/L ALT (test code = 2219) 35 U/L LIPID [id number] 00:00:00* Test Item Value Reference Range Interpretation Comme nts CHOLESTEROL (test code = 2210) 186 MG/DL TRIGLYCERIDES (test code = 2232) 365 MG/DL HDL CHOLESTEROL (test code = 2220) 39 MG/DL CALC LDL CHOL (test code = 2237) 98 MG/DL RISK RATIO LDL/HDL (test cod e = 2238) 2.51 RATIO [id number] 00:00:00* Test Item Value Reference Range Interpretation Comme [facility] TSH, THIRD GENERATION (test code = 2821) 1.890 UIU/ML [id number] 00:00:00* Test Item Value Reference Range Interpretation Comme [facility] TSH, THIRD GENERATION (test code = 2821) 1.890 UIU/ML VITAMIN D, 25 [id number] 00:00:00* Test Item Value Reference Range Interpretation Comme [facility] VITAMIN D, 25 OH (test code = 4958) 19 NG/ML VITAMIN [id number] 00:00:00* Test Item Value Reference Range Interpretation Comme [facility] VITAMIN B-12 (test code = 2840) 509 PG/ML VITAMIN [id number] 00:00:00* Test Item Value Reference Range Interpretation Comme nts VITAMIN B-12 (test code = 2840) 509 PG/ML HEMOGLOBIN [id number] 00:00:00* Test Item Value Reference Range Interpretation Comme [facility] HEMOGLOBIN A1c (test code = 26809) 8.4 % HEMOGLOBIN [id number] 00:00:00* Test Item Value Reference Range Interpretation Comme [facility] HEMOGLOBIN A1c (test code = 93602) 8.4 % CBC W/AUTO [id number] 00:00:00* Test Item Value Reference Range Interpretation Comme nts WBC (test code = 1001) 9.5 K/UL [...] = 1013) 1.2 % IMMATURE GRANULOCYTES (test code = 1036) 0.4 % NUCLEATED RBCS (test code = 1065) 0.0 /100WBC'S PLATELET COUNT (test code = 1015) 132 K/UL ABSOLUTE NEUTROPHILS (test c ode = 1066) 6.70 K/UL ABSOLUTE LYMPHOCYTES (test c ode = 1067) 1.51 K/UL ABSOLUTE MONOCYTES (test cod e = 1068) 0.90 K/UL ABSOLUTE EOSINOPHILS (test c ode = 1040) 0.20 K/UL ABSOLUTE BASOPHILS (test cod e = 1069) 0.11 K/UL ABS IMMATURE GRANULOCYTES (t est code = 1020) 0.04 K/UL ABS NUCLEATED RBCS (test cod e = 49382) 0.00 K/UL CBC W/AUTO [id number] 00:00:00* Test Item Value Reference Range Interpretation Comme nts WBC (test code = 1001) 9.5 K/UL [...] = 1013) 1.2 % IMMATURE GRANULOCYTES (test code = 1036) 0.4 % NUCLEATED RBCS (test code = 1065) 0.0 /100WBC'S PLATELET COUNT (test code = 1015) 132 K/UL ABSOLUTE NEUTROPHILS (test c ode = 1066) 6.70 K/UL ABSOLUTE LYMPHOCYTES (test c ode = 1067) 1.51 K/UL ABSOLUTE MONOCYTES (test cod e = 1068) 0.90 K/UL ABSOLUTE EOSINOPHILS (test c ode = 1040) 0.20 K/UL ABSOLUTE BASOPHILS (test cod e = 1069) 0.11 K/UL ABS IMMATURE GRANULOCYTES (t est code = 1020) 0.04 K/UL ABS NUCLEATED RBCS (test cod e = 66244) 0.00 K/UL COMPREHENSIVE METABOLIC [id number] 00:00:00* Test Item Value Reference Range Interpretation Comme nts GLUCOSE (test code = 2217) 242 MG/DL BUN (test code = 2208) 12 MG/DL CREATININE (test code = 2214) 0.97 MG/DL eGFR (2020 CKD-EPI) (test co de = 96076) 90 ML/MIN/1.73 CALC BUN/CREAT (test code = 2235) 12 RATIO SODIUM (test code = 2231) 135 MEQ/L POTASSIUM (test code = 2228) 4.1 MEQ/L CHLORIDE (test code = 2215) 99 MEQ/L CARBON DIOXIDE (test code = 2206) 19 MEQ/L CALCIUM (test code = 2209) 9.9 MG/DL PROTEIN, TOTAL (test code = 2229) 8.0 G/DL ALBUMIN (test code = 2201) 4.8 G/DL CALC GLOBULIN (test code = 2240) 3.2 G/DL CALC A/G RATIO (test code = 2234) 1.5 RATIO BILIRUBIN, TOTAL (test code = 7) 0.4 MG/DL ALKALINE PHOSPHATASE (test code = 2203) 84 U/L AST (test code = 2217) 31 U/L ALT (test code = 9) 35 U/L LIPID [id number] 00:00:00* Test Item Value Reference Range Interpretation Comme nts CHOLESTEROL (test code = 2210) 186 MG/DL TRIGLYCERIDES (test code = 2) 365 MG/DL HDL CHOLESTEROL (test code = 0) 39 MG/DL CALC LDL CHOL (test code = 7) 98 MG/DL RISK RATIO LDL/HDL (test cod e = 2238) 2.51 RATIO [id number] 00:00:00* Test Item Value Reference Range Interpretation Comme [facility] TSH, THIRD GENERATION (test code = 2821) 1.890 UIU/ML [id number] 00:00:00* Test Item Value Reference Range Interpretation Comme [facility] TSH, THIRD GENERATION (test code = 2821) 1.890 UIU/ML VITAMIN D, 25 [id number] 00:00:00* Test Item Value Reference Range Interpretation Comme [facility] VITAMIN D, 25 OH (test code = 4958) 19 NG/ML VITAMIN [id number] 00:00:00* Test Item Value Reference Range Interpretation Comme [facility] VITAMIN B-12 (test code = 2840) 509 PG/ML VITAMIN [id number] 00:00:00* Test Item Value Reference Range Interpretation Comme [facility] VITAMIN B-12 (test code = 2840) 509 PG/ML HEMOGLOBIN [id number] 00:00:00* Test Item Value Reference Range Interpretation Comme [facility] HEMOGLOBIN A1c (test code = 87393) 8.4 % HEMOGLOBIN [id number] 00:00:00* Test Item Value Reference Range Interpretation Comme nts HEMOGLOBIN A1c (test code = 45515) 8.4 % CBC W/AUTO [id number] 00:00:00* Test Item Value Reference Range Interpretation Comme nts WBC (test code = 1001) 9.5 K/UL [...] = 1013) 1.2 % IMMATURE GRANULOCYTES (test code = 1036) 0.4 % NUCLEATED RBCS (test code = 1065) 0.0 /100WBC'S PLATELET COUNT (test code = 1015) 132 K/UL ABSOLUTE NEUTROPHILS (test c ode = 1066) 6.70 K/UL ABSOLUTE LYMPHOCYTES (test c ode = 1067) 1.51 K/UL ABSOLUTE MONOCYTES (test cod e = 1068) 0.90 K/UL ABSOLUTE EOSINOPHILS (test c ode = 1040) 0.20 K/UL ABSOLUTE BASOPHILS (test cod e = 1069) 0.11 K/UL ABS IMMATURE GRANULOCYTES (t est code = 1020) 0.04 K/UL ABS NUCLEATED RBCS (test cod e = 00627) 0.00 K/UL CBC W/AUTO [id number] 00:00:00* Test Item Value Reference Range Interpretation Comme nts WBC (test code = 1001) 9.5 K/UL [...] = 1013) 1.2 % IMMATURE GRANULOCYTES (test code = 1036) 0.4 % NUCLEATED RBCS (test code = 1065) 0.0 /100WBC'S PLATELET COUNT (test code = 1015) 132 K/UL ABSOLUTE NEUTROPHILS (test c ode = 1066) 6.70 K/UL ABSOLUTE LYMPHOCYTES (test c ode = 1067) 1.51 K/UL ABSOLUTE MONOCYTES (test cod e = 1068) 0.90 K/UL ABSOLUTE EOSINOPHILS (test c ode = 1040) 0.20 K/UL ABSOLUTE BASOPHILS (test cod e = 1069) 0.11 K/UL ABS IMMATURE GRANULOCYTES (t est code = 1020) 0.04 K/UL ABS NUCLEATED RBCS (test cod e = 41753) 0.00 K/UL COMPREHENSIVE METABOLIC [id number] 00:00:00* Test Item Value Reference Range Interpretation Comme nts GLUCOSE (test code = 2217) 242 MG/DL BUN (test code = 2208) 12 MG/DL CREATININE (test code = 2214) 0.97 MG/DL eGFR (2020 CKD-EPI) (test co de = 51378) 90 ML/MIN/1.73 CALC BUN/CREAT (test code = 2235) 12 RATIO SODIUM (test code = 2231) 135 MEQ/L POTASSIUM (test code = 2228) 4.1 MEQ/L CHLORIDE (test code = 2215) 99 MEQ/L CARBON DIOXIDE (test code = 2206) 19 MEQ/L CALCIUM (test code = 2209) 9.9 MG/DL PROTEIN, TOTAL (test code = 2229) 8.0 G/DL ALBUMIN (test code = 2201) 4.8 G/DL CALC GLOBULIN (test code = 2240) 3.2 G/DL CALC A/G RATIO (test code = 2234) 1.5 RATIO BILIRUBIN, TOTAL (test code = 2207) 0.4 MG/DL ALKALINE PHOSPHATASE (test code = 2204) 84 U/L AST (test code = 2218) 31 U/L ALT (test code = 2219) 35 U/L LIPID [id number] 00:00:00* Test Item Value Reference Range Interpretation Comme nts CHOLESTEROL (test code = 2210) 186 MG/DL TRIGLYCERIDES (test code = 2232) 365 MG/DL HDL CHOLESTEROL (test code = 2220) 39 MG/DL CALC LDL CHOL (test code = 2237) 98 MG/DL RISK RATIO LDL/HDL (test cod e = 2238) 2.51 RATIO [id number] 00:00:00* Test Item Value Reference Range Interpretation Comme [facility] TSH, THIRD GENERATION (test code = 2821) 1.890 UIU/ML [id number] 00:00:00* Test Item Value Reference Range Interpretation Comme [facility] TSH, THIRD GENERATION (test code = 2821) 1.890 UIU/ML VITAMIN D, 25 [id number] 00:00:00* Test Item Value Reference Range Interpretation Comme [facility] VITAMIN D, 25 OH (test code = 4958) 19 NG/ML VITAMIN [id number] 00:00:00* Test Item Value Reference Range Interpretation Comme [facility] VITAMIN B-12 (test code = 2840) 509 PG/ML VITAMIN [id number] 00:00:00* Test Item Value Reference Range Interpretation Comme [facility] VITAMIN B-12 (test code = 2840) 509 PG/ML
[2023-05-05 12:50] LABS: Absolute Lymphocytes (CBC) 1.1 K/uL (0.7-4.9); Hematocrit 45.8 % (39.6-49.0); Lymphocytes % 9.2 % (15.3-44.8); MCV 93.9 fL (80-100); MPV 9.3 fL (7.6-11.3); Platelets 88 thou/uL (152-406); RBC Red Blood Cell Count 4.88 M/uL (4.33-5.43)
[2023-05-05 12:58] LABS: Blood Morphology Comment NOT SEEN (NOT SEEN); Platelet Estimate DECR; White Blood Cell Scan OK (OK)
[2023-05-05 13:08] LABS: Albumin 3.1 g/dL (3.4-5.0); Bilirubin Total 0.4 mg/dL (0.2-1.0); Potassium 3.8 mEq/L (3.5-5.1); Protein, Total 6.4 g/dL (6.4-8.2); Troponin High Sensitivity 4.9 pg/mL (<58.9)
--- NOTE | 2023-05-05 13:54 | RAD REPORT ---
EXAM DESCRIPTION: CT - Abdomen Pelvis W Contrast - 05/05/2023 1:19 pm CLINICAL HISTORY: ABD PAIN COMPARISON: No comparisons TECHNIQUE: Thin cut axial CT imaging of the abdomen and pelvis was performed following intravenous a dministration of 100 mL Isovue 300. Multiplanar reformats were generated and reviewed. All CT scans are performed using dose optimization technique as appropriate and may include automated exposure control or mA/KV adjustment according to patient size. FINDINGS: No suspicious findings in the lung bases. The liver shows diffuse parenchymal hypoattenuation suggesting steatosis. Adrenal glands, spleen, and pancreas show no suspicious findings. Gallbladder and biliary tree are also without suspicious findi ng. Symmetric renal function is seen with no hydronephrosis or suspicious renal mass. Small hiatal hernia. No dilated bowel loops or bowel wall thickening. No free air, free fluid or infl ammatory stranding. Small inguinal hernias containing fat. No suspicious mass or bulky lymphadenopath y. The urinary bladder is without significant finding. Mild prostatomegaly. No suspicious bony findings. IMPRESSION: No acute intra-abdominal process. Incidental findings as above, including diffuse hepatic steatosis, small hiatal and small bilateral i nguinal hernias.
--- NOTE | 2023-05-05 14:19 | ER ---
Nurse's Notes [facility] Name: Kelly Guzman Age: 62 yrs Sex: Male : 1960 Arrival Date: 05/05/2023 Time: 10:37 Bed 18 Private MD: MARJAN HUMMEL Diagnosis: Epigastric pain Presentation: 05/05 10:59 Chief complaint: Patient states: Epigastric pain with N/V/D for 1 week. No fever. ll1 Coronavirus screen: Client denies travel out of the [place] in the last 14 days. At this time, the client does not indicate any symptoms associated with coronavirus-19. Ebola Screen: Patient denies travel to an Ebola-affected area in the 21 days before illness onset. Initial Sepsis Screen: Does the patient meet any 2 criteria? HR > 90 bpm. No. Patient's initial sepsis screen is negative. Does the patient have a suspected source of infection? Yes: Acute abdominal pain. Risk Assessment: Do you want to hurt yourself or someone else? Patient reports no desire to harm self or others. Onset of symptoms was April 29, 2023. 10:59 Method Of Arrival: Ambulatory ll1 10:59 Acuity: SAMPSON 3 ll1 Historical: - Allergies: 10:59 No Known Allergies; ll1 - PMHx: 10:59 diabetes mellitus; pemphigus; psoriasis (pemphigus); ll1 - Immunization history:: Adult Immunizations up to date. - Social history:: Smoking status: Patient denies any tobacco usage or history of. - Family history:: not pertinent. Screenin:28 [facility] ED Fall Risk Assessment (Adult) History of falling in the last 3 months, mb9 including since admission No falls in past 3 months (0 pts) Confusion or Disorientation No (0 pts) Intoxicated or Sedated No (0 pts) Impaired Gait No (0 pts) Mobility Assist Device Used No (0 pt) Altered Elimination No (0 pt) Score/Fall Risk Level 0 - 2 = Low Risk Oriented to surroundings, Maintained a safe environment, Educated pt \T\ family on fall prevention, incl call for assistance when getting out of bed. Abuse screen: Denies threats or abuse. Nutritional screening: No deficits noted. Tuberculosis screening: No symptoms or risk factors identified. Assessment: 12:05 General: Appears in no apparent distress. Behavior is calm, cooperative. Pain: mb9 Complains of pain in abdomen Pain radiates to LLQ and LUQ. Neuro: Egan Agitation-Sedation Scale (RASS): 0 - Alert and Calm Level of Consciousness is awake, alert, obeys commands, Oriented to person, place, time, situation, Appropriate for age. Cardiovascular: Patient's skin is warm and dry. Respiratory: Airway is patent Respiratory effort is even, unlabored, Respiratory pattern is regular, symmetrical, Breath sounds are clear bilaterally. GI: Abdomen is round non-distended, Bowel sounds present X 4 quads. Reports diarrhea. : No signs and/or symptoms were reported regarding the genitourinary system. EENT: No signs and/or symptoms were reported regarding the EENT system. Derm: Skin is pink, warm \T\ dry. Musculoskeletal: Range of motion: intact in all extremities. 13:05 Reassessment: No changes from previously documented assessment. Patient and/or family mb9 updated on plan of care and expected duration. Pain level reassessed. Patient is alert, oriented x 3, equal unlabored respirations, skin warm/dry/pink. 13:14 Reassessment: pt taken to CT via wheelchair. mb9 14:27 Reassessment: Patient and/or family updated on plan of care and expected duration. Pain mb9 level reassessed. Patient is alert, oriented x 3, equal unlabored respirations, skin warm/dry/pink. Patient states feeling better. Patient states symptoms have improved. Vital Signs: 10:59 BP 153 / 91; Pulse 103; Resp 17; Temp 98; Pulse Ox 97% on R/A; Weight 100.7 kg; Height ll1 6 ft. 0 in. ; Pain 10/10; 12:07 BP 132 / 80; Pulse 98; Resp 18; Pulse Ox 100% on R/A; mb9 13:49 BP 129 / 76; Pulse 84; Resp 18; Pulse Ox 100% on R/A; mb9 14:26 BP 136 / 88; Pulse 91; Resp 16 S; Pulse Ox 94% on R/A; as6 10:59 Body Mass Index 30.11 (100.70 kg, 182.88 cm) ll1 10:59 Pain Scale: Adult ll1 ED Course: 10:41 Patient arrived in ED. rg4 10:41 MARJAN HUMMEL is Private Physician. rg4 10:45 Nico Clemente MD is Attending Physician. rt 10:59 Arm band placed on Patient placed in an exam room, on a stretcher. ll1 11:01 Triage completed. ll1 11:26 CBC with Diff Sent. pm6 11:26 CMP Sent. pm6 11:26 Lipase Sent. pm6 11:26 Troponin High Sensitivity Sent. pm6 11:27 Nevaeh Preciado, RN is Primary Nurse. mb9 11:28 Placed in gown. Bed in low position. Call light in reach. Side rails up X 1. Client mb9 placed on continuous cardiac and pulse oximetry monitoring. NIBP monitoring applied. ingot header on. 11:35 EKG done, by ED staff, reviewed by Nico Clemente MD. Inserted saline lock: 22 gauge em1 in right hand, using aseptic technique. Blood collected. 12:57 No provider procedures requiring assistance completed. mb9 13:21 CT Abd/Pelvis - IV Contrast Only In Process Unspecified. EDMS 14:19 Mick Weathers MD is Referral Physician. rt 14:27 Provided Education on: rx teaching. as6 14:27 IV discontinued, intact, bleeding controlled, No redness/swelling at site. Pressure as6 dressing applied. Administered Medications: 12:04 Drug: NS 0.9% IV 1000 ml IV at 1 bolus Per protocol; 1000 mL bolus Route: IV; Rate: 1 mb9 bolus; Site: right forearm; 14:27 Follow up: Response: No adverse reaction; IV Status: Completed infusion mb9 12:04 Drug: Famotidine IVP 20 mg IVP once; dilute with 10 mL 0.9% NaCl; give over 2 minutes mb9 Route: IVP; Site: right forearm; 14:27 Follow up: Response: No adverse reaction mb9 12:04 Drug: Pantoprazole IVP 40 mg IVP once Route: IVP; Site: right forearm; mb9 14:27 Follow up: Response: No adverse reaction mb9 12:04 Drug: Alum-Mag Hydroxide-Simeth PO Suspension (200 mg-200 mg-20 mg/5 mL) 30 ml PO once mb9 Route: PO; 14:27 Follow up: Response: No adverse reaction mb9 Medication: 12:58 VIS not applicable for this client. mb9 Outcome: 14:19 Discharge ordered by . rt 14:27 Discharged to home ambulatory, as6 14:27 Condition: stable 14:27 Discharge instructions given to patient, Instructed on discharge instructions, follow up and referral plans. medication usage, Demonstrated understanding of instructions, follow-up care, medications, Prescriptions given X 1, 14:28 Patient left the ED. as6 Signatures: Dispatcher [employer] EDBernard Zuñiga em1 Morena Leslie rg4 Alba Villa RN RN ll1 Pasquale Mcmanus RN RN as6 Nevaeh Preciado RN RN mb9 Nico Clemente MD MD rt Serenity Stein pm6
--- NOTE | 2023-05-05 14:19 | EDPHYS ---
Physician Documentation [facility] Name: Kelly Guzman Age: 62 yrs Sex: Male : 1960 Arrival Date: 05/05/2023 Time: 10:37 Bed 18 Private MD: MARJAN HUMMEL ED Physician Nico Clemente HPI: 05/05 11:34 This 62 yrs old Male presents to ER via Ambulatory with complaints of rt Epigastric Pain. 11:34 Patient presents to the ED with epigastric pain, nausea, diarrhea for about 1 week. rt States the pain was worse on Friday. Reports that the pain is eased up since then. He has been taking omeprazole with no relief. Denies other acute complaints, symptoms are moderate in severity, no other aggravating or alleviating factors.. Historical: - Allergies: : No Known Allergies; ll1 - PMHx: :60 diabetes mellitus; pemphigus; psoriasis (pemphigus); ll1 - Immunization history:: Adult Immunizations up to date. - Social history:: Smoking status: Patient denies any tobacco usage or history of. - Family history:: not pertinent. ROS: 11:34 Constitutional: Negative for fever, chills, and weight loss, Cardiovascular: Negative rt for chest pain, palpitations, and edema, Respiratory: Negative for shortness of breath, cough, wheezing, and pleuritic chest pain, MS/Extremity: Negative for injury and deformity, Skin: Negative for injury, rash, and discoloration, Neuro: Negative for headache, weakness, numbness, tingling, and seizure, Psych: Negative for depression, anxiety, suicide ideation, homicidal ideation, and hallucinations, 11:34 Abdomen/GI: Positive for abdominal pain, nausea, diarrhea, Exam: 11:34 Constitutional: This is a well developed, well nourished patient who is awake, alert, rt and in no acute distress. Head/Face: Normocephalic, atraumatic. Chest/axilla: Normal chest wall appearance and motion. Nontender with no deformity. No lesions are appreciated. Cardiovascular: Regular rate and rhythm with a normal S1 and S2. No gallops, murmurs, or rubs. Normal PMI, no JVD. No pulse deficits. Respiratory: Lungs have equal breath sounds bilaterally, clear to auscultation and percussion. No rales, rhonchi or wheezes noted. No increased work of breathing, no retractions or nasal flaring. Skin: Warm, dry with normal turgor. Normal color with no rashes, no lesions, and no evidence of cellulitis. MS/ Extremity: Pulses equal, no cyanosis. Neurovascular intact. Full, normal range of motion. Neuro: Awake and alert, GCS 15, oriented to person, place, time, and situation. Cranial nerves II-XII grossly intact. Motor strength 5/5 in all extremities. Sensory grossly intact. Cerebellar exam normal. Normal gait. Psych: Awake, alert, with orientation to person, place and time. Behavior, mood, and affect are within normal limits. 11:34 ECG was reviewed by the Attending Physician. 11:34 Abdomen/GI: Tenderness in suprapubic region, no other focal areas of tenderness, no rebound, guarding, distention, Vital Signs: 10:59 BP 153 / 91; Pulse 103; Resp 17; Temp 98; Pulse Ox 97% on R/A; Weight 100.7 kg; Height ll1 6 ft. 0 in. ; Pain 10/10; 12:07 BP 132 / 80; Pulse 98; Resp 18; Pulse Ox 100% on R/A; mb9 13:49 BP 129 / 76; Pulse 84; Resp 18; Pulse Ox 100% on R/A; mb9 14:26 BP 136 / 88; Pulse 91; Resp 16 S; Pulse Ox 94% on R/A; as6 10:59 Body Mass Index 30.11 (100.70 kg, 182.88 cm) ll1 10:59 Pain Scale: Adult ll1 MDM: 11:02 Patient medically screened. rt 17:30 Differential Diagnosis Gastritis, pancreatitis, bowel obstruction, cholecystitis. Data rt reviewed: vital signs, nurses notes, lab test result(s), radiologic studies. I considered the following discharge prescriptions or medication management in the emergency department Medications were administered in the Emergency Department. See MAR. Independent interpretation of the following test(s) in the Emergency Department CT Scan: My interpretation is No bowel obstruction syndrome interpretation of CT scan images. Care significantly affected by the following chronic conditions: Diabetes. Counseling: I had a detailed discussion with the patient and/or guardian regarding the historical points, exam findings, and any diagnostic results supporting the discharge/admit diagnosis, lab results, radiology results, the need for outpatient follow up, to return to the emergency department if symptoms worsen or persist or if there are any questions or concerns that arise at home. Response to treatment: the patient's symptoms have markedly improved after treatment. 05/05 11:08 Order name: CBC with Diff; Complete Time: 13:00 rt 05/05 11:08 Order name: CMP; Complete Time: 14:04 rt 05/05 11:08 Order name: Lipase; Complete Time: 14:04 rt 05/05 11:08 Order name: Troponin High Sensitivity; Complete Time: 14:04 rt 05/05 12:58 Order name: CBC Smear Scan; Complete Time: 13:00 EDMS 05/05 11:08 Order name: CT Abd/Pelvis - IV Contrast Only; Complete Time: 14:04 rt 05/05 11:08 Order name: EKG; Complete Time: 11:09 rt 05/05 11:08 Order name: IV Saline Lock; Complete Time: 11:25 rt 05/05 11:08 Order name: Labs collected and sent; Complete Time: 11: rt 05/05 11:08 Order name: EKG - Nurse/Tech; Complete Time: 11: rt 05/05 11:38 Order name: Labs - recollect needed: recollect light green and lavender top; Complete bd Time: 11:55 EC:34 Rate is 102 beats/min. Rhythm is regular, Sinus tachycardia with No ectopy. Left axis rt deviation noted. OH interval is normal. QRS interval is normal. QT interval is normal. No Q waves. T waves are Normal. No ST changes noted. Administered Medications: 12:04 Drug: NS 0.9% IV 1000 ml IV at 1 bolus Per protocol; 1000 mL bolus Route: IV; Rate: 1 mb9 bolus; Site: right forearm; 14:27 Follow up: Response: No adverse reaction; IV Status: Completed infusion mb9 12:04 Drug: Famotidine IVP 20 mg IVP once; dilute with 10 mL 0.9% NaCl; give over 2 minutes mb9 Route: IVP; Site: right forearm; 14:27 Follow up: Response: No adverse reaction mb9 12:04 Drug: Pantoprazole IVP 40 mg IVP once Route: IVP; Site: right forearm; mb9 14:27 Follow up: Response: No adverse reaction mb9 12:04 Drug: Alum-Mag Hydroxide-Simeth PO Suspension (200 mg-200 mg-20 mg/5 mL) 30 ml PO once mb9 Route: PO; 14:27 Follow up: Response: No adverse reaction mb9 Disposition Summary: 05/05/23 14:19 Discharge Ordered Notes: Location: Home rt Problem: new rt Condition: Stable rt Diagnosis - Epigastric pain rt Followup: rt - With: Mick Weathers MD - When: 5 - 6 days - Reason: Discharge Instructions: - Discharge Summary Sheet rt - Abdominal Pain, Adult rt Forms: - Medication Reconciliation Form rt - Thank You Letter rt - Antibiotic Education rt - Prescription Opioid Use rt - Patient Portal Instructions rt - Leadership Thank You Letter rt Prescriptions: - Protonix 40 mg Oral Tablet - take 1 tablet ORAL route once daily; 30 tablet; Refills: 0, Product Selection rt Permitted Signatures: Dispatcher [employer] Olga Sierra Lynsay, RN RN ll1 Nevaeh Preciado RN RN mb9 Nico Clemente MD MD rt
== END ==
LOC: ER 10:37
DX: R10.13 Epigastric pain (principal); R19.7 Diarrhea, unspecified; E11.9 Type 2 diabetes mellitus without complications
CPT/HCPCS: 85025; 36415; 84484; 83690; 80053; 74177; Q9967; C9113; J7030; 93005